=== PATIENT | female | born 1965 | race Caucasian/White ===

== ENCOUNTER → 2018-05-23 17:30 | Outpatient (CLI) | payer OTHER, SELFPAY ==
--- NOTE | 2018-05-23 | BI_ITS ---
MAMMOGRAPHY - BILATERAL SCREENING REASON FOR EXAM: Female, 53 years old. Routine annual screening examination. PERTINENT HISTORY: Non-contributory. TECHNIQUE: Digital bilateral breast renita (3D mammographic acquisition) in the CC and MLO projections. 2-D mediolateral oblique (MLO) and craniocaudad (CC) views of both breasts were obtained. CAD: Full Field Digital Mammography with Computer Added Detection was performed. COMPARISON: Comparison is made with prior study dated April 26, 2017 and April 22, 2016. FINDINGS: Breast Composition: The breasts are heterogeneously dense, which may obscure small masses. There are no dominant masses or suspicious calcifications. No other significant abnormalities are identified. There has been no significant change since the prior study. BI/SCREENING MAMM (CAD), BILAT IMPRESSION: Stable bilateral screening mammogram. Yearly follow-up mammogram recommended. (A) ASSESSMENT CATEGORY: BIRADS Category 1: Negative. A letter regarding these results will be sent to the patient by the facility within 30 days. Approximately 10% of breast cancers are not detected by mammography. A normal mammogram should not delay biopsy of a clinically suspicious abnormality. [id number] Electronically Signed: Brant Thomas MD at 8:19 EST Tel [phone], Service support ,
--- OUTSIDE RECORDS SUMMARY | 2018-07-19 11:51 | XMS RPT_ITS ---
:1965 Author Organization OHIP Support Name Relationship Address Phone IVANNA PADILLA Unavailable [address] + [place] [address] ALMITA MATA Unavailable [address] + [place] [address] [employer] Unavailable [address] + [place] [address] IVANNA PADILLA Unavailable [address] + [place] [address] ALMITA MATA Unavailable [address] + [place] [address] [employer] Unavailable [address] + [place] [address] IVANNA PADILLA Unavailable [address] + [place] [address] ALMITA MATA Unavailable [address] + [place] [address] [employer] Unavailable [address] + [place] [address] IVANNA PADILLA Unavailable [address] + [facility] [place] [place] [address] ALMITA MATA Unavailable [address] + [place] [address] [employer] Unavailable [address] + [place] [address] IVANNA PADILLA Unavailable [address] + [place] [address] ALMITA MATA Unavailable [address] + [place] [address] [employer] Unavailable [address] + [place] [address] Care Team Providers Name Role Phone Sha Cortez Attending Unavailable Michael, Monisha Primary Care Unavailable Dana, Sha Referring Unavailable Dana, Sha Attending Unavailable [place], Sha Referring Unavailable [place], Monisha Primary Care Unavailable Dana, Sha Consulting Unavailable [place], Sha Attending Unavailable Michael, Monisha Referring Unavailable [place], Monisha Primary Care Unavailable Angela Chi ELECTRONIC FUNDS TRANSFER COORDINATOR-C Attending Unavailable [place], Monisha Referring Unavailable Michael, Monisha Primary Care Unavailable Clementina Hollis Attending Unavailable Michael, Monisha Primary Care Unavailable PROBLEMS PROBLEMS DATE TYPE CONDITION / CODE ATTENDING STATUS SOURCE 10/04/2017 Unknown E10.9 - Type 1 Angela Chi Active [facility] diabetes mellitus ELECTRONIC FUNDS TRANSFER COORDINATOR-C Community without Hospital complications / Repository E10.9(ICD-10) 08/05/2017 Unknown 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 / Hospital D12.4(ICD-10) Repository 08/10/2017 Unknown Z86.010 - Personal Sha Cortez Active [facility] history of colonic Community polyps / Hospital Z86.010(ICD-10) Repository PROCEDURES PROCEDURES No Procedure Records FoundRESULTS RESULTS SCREENING MAMM (CAD), Observed: 05/23/2018 Status: F Source: [facility] 5:25 PM [facility] REPOSITORY [place] [facility] [address] [place] [address] SCREENING MAMM (CAD), BILAT MR#: [id number] Acct: [id number] Name: MAYI MATA Rep #: [id number] : 1965 F 53 From: Brant Thomas MD PCP: Monisha Rodriguez MD Status: REG CLI Study: SCREENING MAMM (CAD), BILAT Date of Exam: 05/23/18 Exam# [id number] Ordering Dr: Clementina Hollis MD MAMMOGRAPHY - BILATERAL SCREENING REASON FOR EXAM: Female, 53 years old. Routine annual screening examination. PERTINENT HISTORY: Non-contributory. TECHNIQUE: Digital bilateral breast renita (3D mammographic acquisition) in the CC and MLO projections. 2-D mediolateral oblique (MLO) and craniocaudad (CC) views of both breasts were obtained. CAD: Full Field Digital Mammography with Computer Added Detection was performed. COMPARISON: Comparison is made with prior study dated April 26, 2017 and April 22, 2016. FINDINGS: Breast Composition: The breasts are heterogeneously dense, which may obscure small masses. There are no dominant masses or suspicious calcifications. No other significant abnormalities are identified. There has been no significant change since the prior study. BI/SCREENING MAMM (CAD), BILAT IMPRESSION: Stable bilateral screening mammogram. Yearly follow-up mammogram recommended. (A) ASSESSMENT CATEGORY: BIRADS Category 1: Negative. A letter regarding these results will be sent to the patient by the facility within 30 days. Approximately 10% of breast cancers are not detected by mammography. A normal mammogram should not delay biopsy of a clinically suspicious abnormality. [id number] Electronically Signed: Brant Thomas MD at 8:19 EST Tel [phone], Service support , CC: Clementina Hollis MD; Monisha Rodriguez MD Electronics Repair Technician: Signed PROGRESS Observed: 04/15/2018 Status: COMPLETED Source: [place] 12:06 PM [facility] REPOSITORY HNO ID: [id number] Author: Ana Ackerman (Pa) Service: (none) Author Type: Physician Warehouse Clerk Type: Progress Notes Filed: 04/15/2018 12:23 PM Note Text: Subjective HPI HPI Mayi Mata is a 53 year old female who presents today for CC of sinus symptoms that started ~2.5 weeks ago. Notes that she has had a lot of sinus pressure and nasal congestion. She states that she has brought some green sputum up the past few days. Has taken OTC cold and allergy medication with no relief in symptoms. Has mild exercise-induced asthma, for which she uses advair once/day. BP 126/88 Pulse 113 Temp 36.6 ?C (97.9 ?F) (Left Tympanic) Resp 20 Wt 72 kg (158 lb 12.8 oz) LMP 01/13/2007 SpO2 98% BMI 27.26 kg/m? 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 Negative for chills and fever. HENT: Positive for congestion and sinus pain. Negative for ear pain and sore throat. Respiratory: Positive for cough (Moreso in the AM) and sputum production (Whitish sputum). Negative for shortness of breath and wheezing. Cardiovascular: Negative for chest pain. Neurological: Negative for headaches. Objective Physical Exam Constitutional: She is oriented to person, place, and time and well-developed, well-nourished, and in no distress. Vital signs are normal. HENT: Head: Normocephalic. Right Ear: Tympanic membrane, external ear and ear canal normal. No drainage. Tympanic membrane is not perforated, not erythematous, not retracted and not bulging. No middle ear effusion. Left Ear: Ear canal normal. No drainage. Tympanic membrane is not perforated, not erythematous, not retracted and not bulging. No middle ear effusion. Nose: Mucosal edema and rhinorrhea (Purulent rhinorrhea noted, crusted blood/scabbing noted in L nare) present. Right sinus exhibits maxillary sinus tenderness. Right sinus exhibits no frontal sinus tenderness. Left sinus exhibits maxillary sinus tenderness. Left sinus exhibits no frontal sinus tenderness. Mouth/Throat: Uvula is midline and mucous membranes are normal. No oropharyngeal exudate, posterior oropharyngeal edema, posterior oropharyngeal erythema or tonsillar abscesses. Eyes: Conjunctivae and lids are normal. Cardiovascular: Normal rate, regular rhythm, S1 normal and S2 normal. Exam reveals no friction rub. Pulmonary/Chest: Effort normal and breath sounds normal. She has no wheezes. She has no rhonchi. She has no rales. Lymphadenopathy: Head (right side): No submental, no submandibular, no tonsillar, no preauricular, no posterior auricular and no occipital adenopathy present. Head (left side): No submental, no submandibular, no tonsillar, no preauricular, no posterior auricular and no occipital adenopathy present. Right cervical: No superficial cervical and no posterior cervical adenopathy present. Left cervical: No superficial cervical and no posterior cervical adenopathy present. Neurological: She is oriented to person, place, and time. ASSESSMENT/PLAN: 1. Acute sinusitis, recurrence not specified, unspecified location - ICD9: 461.9, ICD10: J01.90 - Will begin treatment with Augmentin 875 mg PO BID for 10 days Reviewed red flags with patient and when to seek care sooner. The patient indicates understanding of these issues and agrees with the plan. Ana Ackerman PA-C CNOV Observed: 04/15/2018 Status: COMPLETED Source: [place] 11:45 AM [facility] REPOSITORY Office Visit ([facility]) MAYI MATA ([id number]) 1965 F Date Time Provider Department 04/15/18 11:45 AM ANA ACKERMAN) [facility] During your visit today, we recorded the following information about you: Temperature Pulse Respiration Blood pressure 97.9 degrees 113/minute 20/minute 126/88 Weight 72 kg Ana Ackerman PA-C 04/15/2018 12:23 PM Signed Subjective HPI HPI Mayipradeep Mata is a 53 year old female who presents today for CC of sinus symptoms that started ~2.5 weeks ago. Notes that she has had a lot of sinus pressure and nasal congestion. She states that she has brought some green sputum up the past few days. Has taken OTC cold and allergy medication with no relief in symptoms. Has mild exercise-induced asthma, for which she uses advair once/day. BP 126/88 Pulse 113 Temp 36.6 ?C (97.9 ?F) (Left Tympanic) Resp 20 Wt 72 kg (158 lb 12.8 oz) LMP 01/13/2007 SpO2 98% BMI 27.26 kg/m? 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 Negative for chills and fever. HENT: Positive for congestion and sinus pain. Negative for ear pain and sore throat. Respiratory: Positive for cough (Moreso in the AM) and sputum production (Whitish sputum). Negative for shortness of breath and wheezing. Cardiovascular: Negative for chest pain. Neurological: Negative for headaches. Objective Physical Exam Constitutional: She is oriented to person, place, and time and well-developed, well-nourished, and in no distress. Vital signs are normal. HENT: Head: Normocephalic. Right Ear: Tympanic membrane, external ear and ear canal normal. No drainage. Tympanic membrane is not perforated, not erythematous, not retracted and not bulging. No middle ear effusion. Left Ear: Ear canal normal. No drainage. Tympanic membrane is not perforated, not erythematous, not retracted and not bulging. No middle ear effusion. Nose: Mucosal edema and rhinorrhea (Purulent rhinorrhea noted, crusted blood/scabbing noted in L nare) present. Right sinus exhibits maxillary sinus tenderness. Right sinus exhibits no frontal sinus tenderness. Left sinus exhibits maxillary sinus tenderness. Left sinus exhibits no frontal sinus tenderness. Mouth/Throat: Uvula is midline and mucous membranes are normal. No oropharyngeal exudate, posterior oropharyngeal edema, posterior oropharyngeal erythema or tonsillar abscesses. Eyes: Conjunctivae and lids are normal. Cardiovascular: Normal rate, regular rhythm, S1 normal and S2 normal. Exam reveals no friction rub. Pulmonary/Chest: Effort normal and breath sounds normal. She has no wheezes. She has no rhonchi. She has no rales. Lymphadenopathy: Head (right side): No submental, no submandibular, no tonsillar, no preauricular, no posterior auricular and no occipital adenopathy present. Head (left side): No submental, no submandibular, no tonsillar, no preauricular, no posterior auricular and no occipital adenopathy present. Right cervical: No superficial cervical and no posterior cervical adenopathy present. Left cervical: No superficial cervical and no posterior cervical adenopathy present. Neurological: She is oriented to person, place, and time. ASSESSMENT/PLAN: 1. Acute sinusitis, recurrence not specified, unspecified location - ICD9: 461.9, ICD10: J01.90 - Will begin treatment with Augmentin 875 mg PO BID for 10 days Reviewed red flags with patient and when to seek care sooner. The patient indicates understanding of these issues and agrees with the plan. LATIA Alas PA-C 04/15/2018 12:17 PM Signed Albert Lea nasal saline gel- apply to affected side once/day Referring Provider: SELF [[id number]] Allergies As of Date: 04/15/2018 Noted Allergy Reaction CITALOPRAM 12/05/2007 6 - Diarrhea SERTRALINE 12/22/2007 6 - Diarrhea Date Reviewed: 04/15/2018 Reviewed by: Martha Miranda Ma - Fully Assessed Reason for Visit: Sinusitis [127] Cmt: x 2 weeks Primary Visit Diagnosis:Acute sinusitis, recurrence not specified, unspecified location [J01.90] Order(s):amoxicillin-clavulanic acid (AUGMENTIN) 875-125 mg per tabletTake 1 tablet by mouth twice daily for 10 days.Disp: 20 tabletRfl: 0 Prescriptions as of 04/15/2018 Sig: CYANOCOBALAMIN (VIT B-12) 1,0* FOR DIRECTIONS ON HOW TO TA* LANSOPRAZOLE 30 MG CAPSULE,DE* TAKE NECESSARY ALBUTEROL SULFATE HFA 90 MCG/* Inhale 2 Puffs as instructed * CYANOCOBALAMIN (VIT B-12) 1,0* Take 1 tablet by mouth once d* COMPOUNDED PRESCRIPTION 3cc syringe and 25g 1 needle* METRONIDAZOLE 0.75 % TOPICAL * APPLY 1 APPLICATION TO AF* CHOLECALCIFEROL (VITAMIN D3) * Take 1,000 Units by mouth onc* FLUTICASONE 500 MCG-SALMETERO* Inhale 1 Puff as instructed t* LOVASTATIN 40 MG TABLET Take 1 tablet by mouth twice * HYDROCHLOROTHIAZIDE 25 MG TAB* Take 1 tablet by mouth once d* INSULIN ASPART U-100 100 UNI* use as directed in insulin pu* BLOOD SUGAR DIAGNOSTIC STRIPS CHECK BLOOD SUGARS 8 TIMES DA* LISINOPRIL 40 MG TABLET Take 1 tablet by mouth once d* COMPOUNDED PRESCRIPTION Metronic Minimed Insulin Pump* LANCETS testing 8 times daily BD ULTRA FINE LANCETS use as directed ASPIRIN 81 MG TABLET Take one(1) tablet daily. VITAMIN C 500 MG TABLET Take one(1) tablet daily. AMOXICILLIN 875 MG-POTASSIUM * Take 1 tablet by mouth twice * Problem List As Of Date 04/15/2018 Noted Resolved Type 1 diabetes mellitus (HCC) [E10.9] Hypothyroidism [E03.9] INVALID FOR* PURE HYPERCHOLESTEROLEM [E78.00] INVALID FOR* Mild intermittent asthma, uncomplicated [J45.20]INVALID FOR* B12 DEFIC ANEMIA NEC [D51.8] INVALID FOR* ACNE VULGARIS: Inflammatory Grade III//IV: low*INVALID FOR* HEADACHE [R51] INVALID FOR* More... NEVUS CHEST/BACK///BENIGN TAMMY SKIN TRUNK [D23.5]INVALID FOR*02/16/2017 NEVUS///BENIGN TAMMY SKIN FACE NEC [D23.30] INVALID FOR*02/16/2017 NEVI////BENIGN TAMMY SCALP/SKIN NECK [D23.4] INVALID FOR*02/16/2017 SCARS: Acne-related (chin) [L90.5] INVALID FOR*02/16/2017 SOLAR LENTIGINES///DYSCHROMIA OTHER [L81.9] INVALID FOR*02/16/2017 ACTINIC DAMAGE///CHR SOLAR SKIN DAMAGE NOS [L57*INVALID FOR*02/16/2017 Dermatitis due to cosmetics [L25.0] INVALID FOR*02/16/2017 Contact dermatitis and other eczema, due to uns*INVALID FOR*02/16/2017 Contact dermatitis and other eczema due to othe*INVALID FOR*02/16/2017 Solar Lentigines [L81.4] INVALID FOR*02/16/2017 Postinflammatory skin changes [R23.4] INVALID FOR*02/16/2017 Epidermal cyst [L72.0] INVALID FOR*02/16/2017 Other instructions from your clinician: Albert Lea nasal saline gel- apply to affected side once/day Prescriptions ordered this encounter Disp Refills Start End AMOXICILLIN 875 MG-POTASSIUM CLAVULA* 20 t* 0 04/15/2018 04/25/2018 Route: ORAL Sig: Take 1 tablet by mouth twice daily for 10 days. Encounter Status:Closed by ANA ACKERMAN on 04/15/18 PROGRESS Observed: 11/15/2017 Status: COMPLETED Source: [place] 7:53 PM [facility] REPOSITORY HNO ID: [id number] Author: Azael Ye) Margot Service: (none) Author Type: Physician Warehouse Clerk Type: Progress Notes Filed: 11/15/2017 8:24 PM Note Text: Subjective HPI Pt presents with left eye redness and drainage since this morning. She does get seasonal allergies with eye symptoms this time of year but it is only affecting one eye. She does wear glasses. She does not recall getting anything in her eyes. No cold symptoms. Review of Systems Eyes: Positive for pain, discharge and redness. All other systems reviewed and are negative. 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 Disp: 1 Inhaler Rfl: 3 cyanocobalamin (VITAMIN B-12) 1,000 mcg tab Take 1 tablet by mouth once daily. Disp: 30 tablet Rfl: 5 COMPOUNDED PRESCRIPTION 3cc syringe and 25g 1 needle for B12 injections. Disp: 50 Each Rfl: 3 metroNIDAZOLE (METROGEL) 0.75 % Topical Gel APPLY 1 APPLICATION TO AFFECTED AREA TWO TIMES A DAY Disp: 45 g Rfl: 3 lansoprazole (PREVACID) 30 mg capsule as necessary Disp: 90 capsule Rfl: 3 Cholecalciferol, Vitamin D3, (VITAMIN D) 1,000 unit cap Take 1,000 Units by mouth once daily. Disp: Rfl: fluticasone-salmeterol (ADVAIR DISKUS) 500-50 mcg/dose dsdv Inhale 1 Puff as instructed twice daily. Rinse mouth after use. Disp: 3 Inhaler Rfl: 3 Lovastatin 40 mg tablet Take 1 tablet by mouth twice daily. Disp: 180 tablet Rfl: 4 hydrochlorothiazide (HYDRODIURIL, ESIDRIX) 25 mg tablet Take 1 tablet by mouth once daily. Disp: 90 tablet Rfl: 4 insulin aspart (NOVOLOG) 100 unit/mL soln use as directed in insulin pump up to 50 units daily Disp: 5 Vial Rfl: 3 blood sugar diagnostic (ONETOUCH ULTRA TEST) test strip CHECK BLOOD SUGARS 8 TIMES DAILY Disp: 750 Strip Rfl: 4 lisinopril (ZESTRIL, PRINIVIL) 40 mg tablet Take 1 tablet by mouth once daily. Disp: 90 tablet Rfl: 4 COMPOUNDED PRESCRIPTION Metronic Minimed Insulin Pump Supples And life scan testing supplies use as directed Disp: 30 Each Rfl: 3 Lancets Misc lancets testing 8 times daily Disp: 750 Each Rfl: 4 BD ULTRA FINE LANCETS use as directed Disp: 300 Rfl: 3 ASPIRIN 81 MG ORAL TAB Take one(1) tablet daily. Disp: Rfl: 0 VITAMIN C 500 MG ORAL TAB Take one(1) tablet daily. Disp: Rfl: 0 tobramycin (TOBREX) 0.3 % ophthalmic solution Use 1 Drop in the left eye every 4 hours for 7 days. Disp: 1 Bottle Rfl: 0 cyanocobalamin 1,000 mcg/mL soln Inject 1 mL intramuscularly once every month. Give once weekly for the first month Disp: 16 mL Rfl: 0 No current facility-administered medications for this visit. PAST SURGICAL HISTORY Procedure Laterality Date - APPENDECTOMY - COLONOSCOPY 07/12/2016 Repeat colonoscopy 2018 - PAST SURGICAL HISTORY OF LAPAROSCOPY - REMOVAL OF OVARY(S) 04/02 right oophorectomy - TOTAL ABDOM HYSTERECTOMY 04/02 Hysterectomy, IVY FAMILY HISTORY Problem Relation Age of Onset - RENAL CANCER [OTHER] Father - Colon Cancer Maternal Grandmother and maternal grandfather Social History Substance Use Topics - Smoking status: Current Some Day Smoker Packs/day: 0.50 Last attempt to quit: 06/28/2010 - Smokeless tobacco: Never Used Comment: seldom - Alcohol use No BP 122/80 Pulse 84 Temp 37.2 ?C (99 ?F) Resp 18 Wt 71.7 kg (158 lb) LMP 01/13/2007 BMI 27.12 kg/m? Objective Physical Exam Constitutional: She is oriented to person, place, and time and well-developed, well-nourished, and in no distress. HENT: Head: Normocephalic and atraumatic. Right Ear: Tympanic membrane, external ear and ear canal normal. Left Ear: Tympanic membrane, external ear and ear canal normal. Nose: Nose normal. Mouth/Throat: Uvula is midline, oropharynx is clear and moist and mucous membranes are normal. Eyes: EOM are normal. Pupils are equal, round, and reactive to light. Right eye exhibits no discharge. No foreign body present in the right eye. Left eye exhibits discharge. No foreign body present in the left eye. Right conjunctiva is not injected. Left conjunctiva is injected. Thick green discharge from left conjunctiva. No signs of orbital or periorbital cellulitis. Cardiovascular: Normal rate, regular rhythm and normal heart sounds. Pulmonary/Chest: Effort normal and breath sounds normal. Neurological: She is alert and oriented to person, place, and time. Skin: Skin is warm and dry. Psychiatric: Affect normal. Nursing note and vitals reviewed. ASSESSMENT/PLAN: 1. Bacterial conjunctivitis - ICD9: 372.39, 041.9, ICD10: H10.9 Bacterial - Given tobrex - course and contagiousness issues discussed, including hand washing. - Instructed to call if high fever, development of periorbital redness or swelling, eye pain, visual changes, concerns or if symptoms persist. LATIA Guaman Observed: 11/15/2017 Status: COMPLETED Source: [place] 7:30 PM [facility] Office Visit ([facility]) MAYI MATA ([id number]) 1965 F Date Time Provider Department 11/15/17 7:30 PM AZAEL MATHIS) [facility] During your visit today, we recorded the following information about you: Temperature Pulse Respiration Blood pressure 99 degrees 84/minute 18/minute 122/80 Weight 71.7 kg Azael Mathis PA-C 11/15/2017 8:24 PM Signed Subjective HPI Pt presents with left eye redness and drainage since this morning. She does get seasonal allergies with eye symptoms this time of year but it is only affecting one eye. She does wear glasses. She does not recall getting anything in her eyes. No cold symptoms. Review of Systems Eyes: Positive for pain, discharge and redness. All other systems reviewed and are negative. 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 Disp: 1 Inhaler Rfl: 3 cyanocobalamin (VITAMIN B-12) 1,000 mcg tab Take 1 tablet by mouth once daily. Disp: 30 tablet Rfl: 5 COMPOUNDED PRESCRIPTION 3cc syringe and 25g 1 needle for B12 injections. Disp: 50 Each Rfl: 3 metroNIDAZOLE (METROGEL) 0.75 % Topical Gel APPLY 1 APPLICATION TO AFFECTED AREA TWO TIMES A DAY Disp: 45 g Rfl: 3 lansoprazole (PREVACID) 30 mg capsule as necessary Disp: 90 capsule Rfl: 3 Cholecalciferol, Vitamin D3, (VITAMIN D) 1,000 unit cap Take 1,000 Units by mouth once daily. Disp: Rfl: fluticasone-salmeterol (ADVAIR DISKUS) 500-50 mcg/dose dsdv Inhale 1 Puff as instructed twice daily. Rinse mouth after use. Disp: 3 Inhaler Rfl: 3 Lovastatin 40 mg tablet Take 1 tablet by mouth twice daily. Disp: 180 tablet Rfl: 4 hydrochlorothiazide (HYDRODIURIL, ESIDRIX) 25 mg tablet Take 1 tablet by mouth once daily. Disp: 90 tablet Rfl: 4 insulin aspart (NOVOLOG) 100 unit/mL soln use as directed in insulin pump up to 50 units daily Disp: 5 Vial Rfl: 3 blood sugar diagnostic (I.SystemsUCH ULTRA TEST) test strip CHECK BLOOD SUGARS 8 TIMES DAILY Disp: 750 Strip Rfl: 4 lisinopril (ZESTRIL, PRINIVIL) 40 mg tablet Take 1 tablet by mouth once daily. Disp: 90 tablet Rfl: 4 COMPOUNDED PRESCRIPTION Metronic Minimed Insulin Pump Supples And life scan testing supplies use as directed Disp: 30 Each Rfl: 3 Lancets Misc lancets testing 8 times daily Disp: 750 Each Rfl: 4 BD ULTRA FINE LANCETS use as directed Disp: 300 Rfl: 3 ASPIRIN 81 MG ORAL TAB Take one(1) tablet daily. Disp: Rfl: 0 VITAMIN C 500 MG ORAL TAB Take one(1) tablet daily. Disp: Rfl: 0 tobramycin (TOBREX) 0.3 % ophthalmic solution Use 1 Drop in the left eye every 4 hours for 7 days. Disp: 1 Bottle Rfl: 0 cyanocobalamin 1,000 mcg/mL soln Inject 1 mL intramuscularly once every month. Give once weekly for the first month Disp: 16 mL Rfl: 0 No current facility-administered medications for this visit. PAST SURGICAL HISTORY Procedure Laterality Date - APPENDECTOMY - COLONOSCOPY 07/12/2016 Repeat colonoscopy 2018 - PAST SURGICAL HISTORY OF LAPAROSCOPY - REMOVAL OF OVARY(S) 04/02 right oophorectomy - TOTAL ABDOM HYSTERECTOMY 04/02 Hysterectomy, IVY FAMILY HISTORY Problem Relation Age of Onset - RENAL CANCER [OTHER] Father - Colon Cancer Maternal Grandmother and maternal grandfather Social History Substance Use Topics - Smoking status: Current Some Day Smoker Packs/day: 0.50 Last attempt to quit: 06/28/2010 - Smokeless tobacco: Never Used Comment: seldom - Alcohol use No BP 122/80 Pulse 84 Temp 37.2 ?C (99 ?F) Resp 18 Wt 71.7 kg (158 lb) LMP 01/13/2007 BMI 27.12 kg/m? Objective Physical Exam Constitutional: She is oriented to person, place, and time and well-developed, well-nourished, and in no distress. HENT: Head: Normocephalic and atraumatic. Right Ear: Tympanic membrane, external ear and ear canal normal. Left Ear: Tympanic membrane, external ear and ear canal normal. Nose: Nose normal. Mouth/Throat: Uvula is midline, oropharynx is clear and moist and mucous membranes are normal. Eyes: EOM are normal. Pupils are equal, round, and reactive to light. Right eye exhibits no discharge. No foreign body present in the right eye. Left eye exhibits discharge. No foreign body present in the left eye. Right conjunctiva is not injected. Left conjunctiva is injected. Thick green discharge from left conjunctiva. No signs of orbital or periorbital cellulitis. Cardiovascular: Normal rate, regular rhythm and normal heart sounds. Pulmonary/Chest: Effort normal and breath sounds normal. Neurological: She is alert and oriented to person, place, and time. Skin: Skin is warm and dry. Psychiatric: Affect normal. Nursing note and vitals reviewed. ASSESSMENT/PLAN: 1. Bacterial conjunctivitis - ICD9: 372.39, 041.9, ICD10: H10.9 Bacterial - Given tobrex - course and contagiousness issues discussed, including hand washing. - Instructed to call if high fever, development of periorbital redness or swelling, eye pain, visual changes, concerns or if symptoms persist. Azael Mathis PA-C Referring Provider: SELF [[id number]] Allergies As of Date: 11/15/2017 Noted Allergy Reaction CITALOPRAM 12/05/2007 6 - Diarrhea SERTRALINE 12/22/2007 6 - Diarrhea Date Reviewed: 11/15/2017 Reviewed by: Joy Juarez LPN - Fully Assessed Reason for Visit: Eye Problem [43] Cmt: Left eye puffy, draining AND red since this am Primary Visit Diagnosis:Bacterial conjunctivitis [H10.9] Order(s):tobramycin (TOBREX) 0.3 % ophthalmic solutionUse 1 Drop in the left eye every 4 hours for 7 days.Disp: 1 BottleRfl: 0 Prescriptions as of 11/15/2017 Sig: ALBUTEROL SULFATE HFA 90 MCG/* Inhale 2 Puffs as instructed * CYANOCOBALAMIN (VIT B-12) 1,0* Take 1 tablet by mouth once d* COMPOUNDED PRESCRIPTION 3cc syringe and 25g 1 needle* METRONIDAZOLE 0.75 % TOPICAL * APPLY 1 APPLICATION TO AF* LANSOPRAZOLE 30 MG CAPSULE,DE* as necessary CHOLECALCIFEROL (VITAMIN D3) * Take 1,000 Units by mouth onc* FLUTICASONE 500 MCG-SALMETERO* Inhale 1 Puff as instructed t* LOVASTATIN 40 MG TABLET Take 1 tablet by mouth twice * HYDROCHLOROTHIAZIDE 25 MG TAB* Take 1 tablet by mouth once d* INSULIN ASPART U-100 100 UNI* use as directed in insulin pu* BLOOD SUGAR DIAGNOSTIC STRIPS CHECK BLOOD SUGARS 8 TIMES DA* LISINOPRIL 40 MG TABLET Take 1 tablet by mouth once d* COMPOUNDED PRESCRIPTION Metronic Minimed Insulin Pump* LANCETS testing 8 times daily BD ULTRA FINE LANCETS use as directed ASPIRIN 81 MG TABLET Take one(1) tablet daily. VITAMIN C 500 MG TABLET Take one(1) tablet daily. TOBRAMYCIN 0.3 % EYE DROPS Use 1 Drop in the left eye ev* CYANOCOBALAMIN (VIT B-12) 1,0* Inject 1 mL intramuscularly o* Problem List As Of Date 11/15/2017 Noted Resolved Type 1 diabetes mellitus (HCC) [E10.9] Hypothyroidism [E03.9] INVALID FOR* PURE HYPERCHOLESTEROLEM [E78.00] INVALID FOR* Mild intermittent asthma, uncomplicated [J45.20]INVALID FOR* B12 DEFIC ANEMIA NEC [D51.8] INVALID FOR* ACNE VULGARIS: Inflammatory Grade III//IV: low*INVALID FOR* HEADACHE [R51] INVALID FOR* More... NEVUS CHEST/BACK///BENIGN TAMMY SKIN TRUNK [D23.5]INVALID FOR*02/16/2017 NEVUS///BENIGN TAMMY SKIN FACE NEC [D23.30] INVALID FOR*02/16/2017 NEVI////BENIGN TAMMY SCALP/SKIN NECK [D23.4] INVALID FOR*02/16/2017 SCARS: Acne-related (chin) [L90.5] INVALID FOR*02/16/2017 SOLAR LENTIGINES///DYSCHROMIA OTHER [L81.9] INVALID FOR*02/16/2017 ACTINIC DAMAGE///CHR SOLAR SKIN DAMAGE NOS [L57*INVALID FOR*02/16/2017 Dermatitis due to cosmetics [L25.0] INVALID FOR*02/16/2017 Contact dermatitis and other eczema, due to uns*INVALID FOR*02/16/2017 Contact dermatitis and other eczema due to othe*INVALID FOR*02/16/2017 Solar Lentigines [L81.4] INVALID FOR*02/16/2017 Postinflammatory skin changes [R23.4] INVALID FOR*02/16/2017 Epidermal cyst [L72.0] INVALID FOR*02/16/2017 Prescriptions ordered this encounter Disp Refills Start End TOBRAMYCIN 0.3 % EYE DROPS 1 Moi* 0 11/15/2017 11/22/2017 Route: LEFT EYE Sig: Use 1 Drop in the left eye every 4 hours for 7 days. Letter Text [facility] LILLIE Levi [address], [place] [address] 11/15/2017 TO WHOM IT MAY CONCERN: This is to confirm that Mayi Mata had an appointment and was seen at the [facility] in the Department of Urgent Care by LILLIE Levi on 11/15/2017 and may return to work on 11/17/2017. Sincerely yours, LILLIE Levi Encounter Status:Closed by AZAEL MATHIS PA-C on 11/15/17 ENDOCRINOLOGY VISIT Observed: 10/05/2017 Status: F Source: [facility] REPORT 12:26 PM [facility] REPOSITORY [facility] [address] [place] [address] [address] [place] [id number] OFFICE VISIT Date of Service: 10/03/17 MR#: [id number] Acct: [id number] Name: MAYI MATA Rep #: [id number] : 1965 Provider: Angela Chi NP Age/Sex: 52/F Location[place] [facility] [place]: Signed HPI History of present illness Mayi Mata is a 52 year old female who presents for follow up of diabetes type 1. Diagnosed in 1998. Continues on insulin pump therapy. Changes infusion site every 3 days. Denies any issues with skin irritation or infection. Reports checking BG consistently. Forgot to bring her glucometer. Time of Day Basal Rate 12m 0.4 4am 0.875 7am 0.45 2pm 0.35 6pm 0.45 Meal insulin 4-8 Type: type 1, insulin-requiring Glucose control symptoms: Reports high post-meal glucose Skin and extremity symptoms: Denies tingling/numbness/burning or foot ulcers Pertinent visit history: Denies recent visit to ER or recent DKA Self monitoring: Yes Diabetes education in past year: Yes Glucose testing: demonstrates correct use of meter, understands testing schedule Physical activity: regular Exam Const General: comfortable Nutritional Appearance: well nourished Orientation: oriented x3 HENMT Head: normal to inspection Ears: hearing grossly normal bilaterally Mouth: oral mucosae normal, moist mucous membranes Teeth and gingiva: dentition normal Eyes Eyelids: eyelids normal Conjunctivae: conjunctivae normal Pupils: PERRL Resp Effort AND Inspection: normal respiratory effort, able to speak in complete sentences, symmetric chest movement Auscultation: Bilateral: Clear to Auscultation Cardio Rate: regular rate Rhythm: regular rhythm Heart Sounds: S1 normal, S2 normal GI Inspection: normal to inspection Auscultation: normal bowel sounds Palpation: soft Skin General: no rashes or lesions noted Wounds: no wounds Diabetic Foot Pulses: L dorsalis pedis pulse: normal, R dorsalis pedis pulse: normal Monofilament test: Left foot: abnormal, Right foot: abnormal Neuro General: moves all extremities Cognition: normal cognition Speech: speech normal Gait: normal gait Extrem General: normal to inspection Psych Mental Status: mental status grossly normal Mood: congruent mood Affect: normal affect Speech and Movement: speech and movement normal Attitude: cooperative Thought Process: normal Thought Content: normal Judgment: judgment good Intake Vital Signs10/03/17 Height 5 ft 4 in 10/03/17 Weight: 154 lb 6 oz Intake Visit Reasons: Diabetes follow-up 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 Accompanied by: None Is patient in pain?: No Allergies No Known Allergies Allergy (Verified 08/05/17 08:08) Medications ascorbic acid (vitamin C) ER 1,000 mg tablet,extended release 1,000 mg PO DAILY 06/06/17 [History Confirmed 08/05/17] aspirin 81 mg tablet,delayed release 81 mg PO QDAY 06/06/17 [History Confirmed 08/05/17] fluticasone 500 mcg-salmeterol 50 mcg/dose blistr powdr for inhalation 1 inh INHALATION Q12H 06/06/17 [History Confirmed 08/05/17] lansoprazole 30 mg capsule,delayed release 30 mg PO BID 06/06/17 [History Confirmed 08/05/17] levothyroxine 112 mcg tablet 112 mcg PO DAILY tab 06/06/17 [History Confirmed 08/05/17] lisinopril 40 mg tablet 40 mg PO QDAY 06/06/17 [History Confirmed 08/05/17] Cyanocobalamin (Vitamin B-12) [Vitamin B-12] 1,000 mcg PO DAILY 07/15/17 [History Confirmed 08/05/17] insulin aspart U-100 100 unit/mL subcutaneous solution See Label Instructions SC QDAY #50 ml 08/03/17 [Rx Confirmed 08/05/17] hydrochlorothiazide 25 mg tablet 25 mg PO QDAY #90 tab 08/17/17 [Rx] lovastatin 40 mg tablet 40 mg PO QDAY #90 tab 08/25/17 [Rx] PFSH Medical History Hypothyroid (Acute) Asthma (Acute) Type 1 diabetes mellitus (Acute) Snoring (Acute) Vitamin B 12 deficiency (Acute) Surgical History S/P hysterectomy (Acute) S/P oophorectomy (Acute) S/P colonoscopy (Acute) S/P appendectomy (Acute) Family History Father Renal cancer Social History Smoking Status: Light Smoker (<10/day) second hand exposure: No alcohol intake: never substance use type: does not use caffeine: Yes what type of physical activity do you participate in: walking frequency: 1-2 times per week seatbelt use: always Assessment AND Plan 1. Type 1 diabetes mellitus without complication E10.9 Did not bring meter but feels she is doing fairly well. Some high BG after meals. Enc to check Bg in pairs to determine if a basal or bolus issue. Would possibly benefit from using her dual wave. BP sl elevated. Recheck in 2 weeks On jered inhibitor On statin Eye exam up to date. Orders Orders: Plan Detail Additional Comments 1. Please schedule follow up in 3 months. 2. Lab work one week before appointment. 3. Discussed importance of regular exercise and recommend starting or continuing a regular exercise program for good health. 4. The patient was encouraged to lose weight for good health 5. The importance of monitoring blood sugar regularly was reviewed. 6. The importance of monitoring the HBA1c level regularly was reviewed. 7. The importance of prper foot care and regularly checking feet to prevent sores and loss of limbs was reviewed. 8. The importance of keeping BP at or below 130/80 to prevent stroke, heart attacks, kidney failure, blindness was reviewed. Spent approximately 30 minutes with patient with over 50% of time spent in discussion and counseling regarding medication adjustment, symptoms and treatment of hypoglycemia, diet adherence, and checking BG before driving. Coding Level of Care Code Off vis,est,level 4 Diagnoses Type 1 diabetes mellitus without complication E10.9 Diabetes mellitus complication status: without complication Time Spent (min) 30 10/05/17 1226 <Electronically signed by Angela BUTTERFIELD> Date Angela BUTTERFIELD Cosigner Signature: Date (if applicable) CC: Observed: 09/12/2017 Status: F Source: [place] URINE CULTURE 7:16 AM [facility] REPOSITORY Sp. Request/Comment: - Specimen received in preservative Culture Result - 10,000 - <50,000 CFU/ml Lactose positive gram negative bacilli --> ABNORMAL ALERT Insignificant colony count. No further workup. --> ABNORMAL ALERT <10,000 CFU/ml Normal urogenital cherelle Performed By: #### URCUL #### [facility] [address] [place], [place] [address] PROGRESS Observed: 09/12/2017 Status: COMPLETED Source: [place] 7:09 AM [facility] REPOSITORY HNO ID: [id number] Author: Alverto Smith Service: (none) Author Type: Physician Type: Progress Notes Filed: 09/12/2017 7:19 AM Note Text: Patient presents with: Urinary Frequency: burning, hematuria x 2 days HPI: Symptoms for 2 days, worse this morning. 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 - Other acne - Other vitamin B12 deficiency anemia - Snoring - Type I (juvenile type) diabetes mellitus without mention of complication, not stated as uncontrolled - Unspecified asthma, with status asthmaticus - Unspecified hypothyroidism PAST SURGICAL HISTORY Procedure Laterality Date - APPENDECTOMY - COLONOSCOPY 07/12/2016 Repeat colonoscopy 2017 - PAST SURGICAL HISTORY OF LAPAROSCOPY - REMOVAL OF OVARY(S) 04/02 right oophorectomy - TOTAL ABDOM HYSTERECTOMY 04/02 Hysterectomy, IVY MEDICATIONS: Current Outpatient Prescriptions: cyanocobalamin 1,000 mcg/mL soln Inject 1 mL intramuscularly once every month. Give once weekly for the first month cyanocobalamin (VITAMIN B-12) 1,000 mcg tab Take 1 tablet by mouth once daily. COMPOUNDED PRESCRIPTION 3cc syringe and 25g 1 needle for B12 injections. metroNIDAZOLE (METROGEL) 0.75 % Topical Gel APPLY 1 APPLICATION TO AFFECTED AREA TWO TIMES A DAY lansoprazole (PREVACID) 30 mg capsule as necessary Cholecalciferol, Vitamin D3, (VITAMIN D) 1,000 unit cap Take 1,000 Units by mouth once daily. fluticasone-salmeterol (ADVAIR DISKUS) 500-50 mcg/dose dsdv Inhale 1 Puff as instructed twice daily. Rinse mouth after use. Lovastatin 40 mg tablet Take 1 tablet by mouth twice daily. hydrochlorothiazide (HYDRODIURIL, ESIDRIX) 25 mg tablet Take 1 tablet by mouth once daily. insulin aspart (NOVOLOG) 100 unit/mL soln use as directed in insulin pump up to 50 units daily blood sugar diagnostic (ONETOUCH ULTRA TEST) test strip CHECK BLOOD SUGARS 8 TIMES DAILY lisinopril (ZESTRIL, PRINIVIL) 40 mg tablet Take 1 tablet by mouth once daily. COMPOUNDED PRESCRIPTION Metronic Minimed Insulin Pump Supples And life scan testing supplies use as directed Lancets Misc lancets testing 8 times daily BD ULTRA FINE LANCETS use as directed ASPIRIN 81 MG ORAL TAB Take one(1) tablet daily. VITAMIN C 500 MG ORAL TAB Take one(1) tablet daily. No current facility-administered medications for this visit. ALLERGIES: ALLERGIES Allergen Reactions - Citalopram Diarrhea - Sertraline Diarrhea VITALS: BP 128/84 Pulse 84 Temp 36.3 ?C (97.3 ?F) (Tympanic) Resp 16 Wt 70.8 kg (156 lb) LMP 01/13/2007 BMI 26.78 kg/m2 PHYSICAL EXAM: GEN: NAD HEENT: EOMI, conjunctiva clear, moist mucous membranes HEART: regular rate and rhythm, no murmurs LUNGS: clear to auscultation, no wheezes or crackles, no increased WOB ABDOMEN: Soft, nondistended, no masses, + suprapubic tenderness BACK: No CVA tenderness ASSESSMENT/PLAN: 1. Gross hematuria - ICD9: 599.71, ICD10: R31.0 - UA DIP B/O - large blood, large LE, nitrite, protein. Urinary tract infection. - URINE CULTURE - NITROFURANTOIN MONOHYDRATE AND MACROCRYSTAL 100 MG ORAL CAP Ibuprofen PRN pain. Alverto Smith MD CNOV Observed: 09/12/2017 Status: COMPLETED Source: [place] 6:45 AM [facility] REPOSITORY Office Visit (WSTR) MAYI MATA ([id number]) 1965 F Date Time Provider Department 09/12/17 6:45 AM ALVERTO SMITH [facility] During your visit today, we recorded the following information about you: Temperature Pulse Respiration Blood pressure 97.3 degrees 84/minute 16/minute 128/84 Weight 70.8 kg Alverto Smith MD 09/12/2017 7:19 AM Signed Patient presents with: Urinary Frequency: burning, hematuria x 2 days HPI: Symptoms for 2 days, worse this morning. 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 - Other acne - Other vitamin B12 deficiency anemia - Snoring - Type I (juvenile type) diabetes mellitus without mention of complication, not stated as uncontrolled - Unspecified asthma, with status asthmaticus - Unspecified hypothyroidism PAST SURGICAL HISTORY Procedure Laterality Date - APPENDECTOMY - COLONOSCOPY 07/12/2016 Repeat colonoscopy 2017 - PAST SURGICAL HISTORY OF LAPAROSCOPY - REMOVAL OF OVARY(S) 04/02 right oophorectomy - TOTAL ABDOM HYSTERECTOMY 04/02 Hysterectomy, IVY MEDICATIONS: Current Outpatient Prescriptions: cyanocobalamin 1,000 mcg/mL soln Inject 1 mL intramuscularly once every month. Give once weekly for the first month cyanocobalamin (VITAMIN B-12) 1,000 mcg tab Take 1 tablet by mouth once daily. COMPOUNDED PRESCRIPTION 3cc syringe and 25g 1ANDquot; needle for B12 injections. metroNIDAZOLE (METROGEL) 0.75 % Topical Gel APPLY 1 APPLICATION TO AFFECTED AREA TWO TIMES A DAY lansoprazole (PREVACID) 30 mg capsule as necessary Cholecalciferol, Vitamin D3, (VITAMIN D) 1,000 unit cap Take 1,000 Units by mouth once daily. fluticasone-salmeterol (ADVAIR DISKUS) 500-50 mcg/dose dsdv Inhale 1 Puff as instructed twice daily. Rinse mouth after use. Lovastatin 40 mg tablet Take 1 tablet by mouth twice daily. hydrochlorothiazide (HYDRODIURIL, ESIDRIX) 25 mg tablet Take 1 tablet by mouth once daily. insulin aspart (NOVOLOG) 100 unit/mL soln use as directed in insulin pump up to 50 units daily blood sugar diagnostic (Lodo SoftwareTOUCH ULTRA TEST) test strip CHECK BLOOD SUGARS 8 TIMES DAILY lisinopril (ZESTRIL, PRINIVIL) 40 mg tablet Take 1 tablet by mouth once daily. COMPOUNDED PRESCRIPTION Metronic Minimed Insulin Pump Supples And life scan testing supplies use as directed Lancets Misc lancets testing 8 times daily BD ULTRA FINE LANCETS use as directed ASPIRIN 81 MG ORAL TAB Take one(1) tablet daily. VITAMIN C 500 MG ORAL TAB Take one(1) tablet daily. No current facility-administered medications for this visit. ALLERGIES: ALLERGIES Allergen Reactions - Citalopram Diarrhea - Sertraline Diarrhea VITALS: BP 128/84 Pulse 84 Temp 36.3 ?C (97.3 ?F) (Tympanic) Resp 16 Wt 70.8 kg (156 lb) LMP 01/13/2007 BMI 26.78 kg/m2 PHYSICAL EXAM: GEN: NAD HEENT: EOMI, conjunctiva clear, moist mucous membranes HEART: regular rate and rhythm, no murmurs LUNGS: clear to auscultation, no wheezes or crackles, no increased WOB ABDOMEN: Soft, nondistended, no masses, + suprapubic tenderness BACK: No CVA tenderness ASSESSMENT/PLAN: 1. Gross hematuria - ICD9: 599.71, ICD10: R31.0 - UA DIP B/O - large blood, large LE, nitrite, protein. Urinary tract infection. - URINE CULTURE - NITROFURANTOIN MONOHYDRATE ANDamp; MACROCRYSTAL 100 MG ORAL CAP Ibuprofen PRN pain. Alverto Smith MD Referring Provider: SELF [200] Allergies As of Date: 09/12/2017 Noted Allergy Reaction CITALOPRAM 12/05/2007 6 - Diarrhea SERTRALINE 12/22/2007 6 - Diarrhea Date Reviewed: 09/12/2017 Reviewed by: Mindi Auguste Ma - Fully Assessed Reason for Visit: Urinary Frequency [1086] Cmt: burning, hematuria x 2 days Primary Visit Diagnosis:Gross hematuria [R31.0] Order(s):UA DIP B/O [[id number]] Order #: [id number] URINE CULTURE [SQURCUL] Order #: [id number] nitrofurantoin monohydrate and macrocrystal (MACROBID) 100 mg capsuleTake 1 capsule by mouth twice daily with meals for 7 days.Disp: 14 capsuleRfl: 0 Prescriptions as of 09/12/2017 Sig: CYANOCOBALAMIN (VIT B-12) 1,0* Inject 1 mL intramuscularly o* CYANOCOBALAMIN (VIT B-12) 1,0* Take 1 tablet by mouth once d* COMPOUNDED PRESCRIPTION 3cc syringe and 25g 1 needle* METRONIDAZOLE 0.75 % TOPICAL * APPLY 1 APPLICATION TO AF* LANSOPRAZOLE 30 MG CAPSULE,DE* as necessary CHOLECALCIFEROL (VITAMIN D3) * Take 1,000 Units by mouth onc* FLUTICASONE 500 MCG-SALMETERO* Inhale 1 Puff as instructed t* LOVASTATIN 40 MG TABLET Take 1 tablet by mouth twice * HYDROCHLOROTHIAZIDE 25 MG TAB* Take 1 tablet by mouth once d* INSULIN ASPART U-100 100 UNI* use as directed in insulin pu* BLOOD SUGAR DIAGNOSTIC STRIPS CHECK BLOOD SUGARS 8 TIMES DA* LISINOPRIL 40 MG TABLET Take 1 tablet by mouth once d* COMPOUNDED PRESCRIPTION Metronic Minimed Insulin Pump* LANCETS testing 8 times daily BD ULTRA FINE LANCETS use as directed ASPIRIN 81 MG TABLET Take one(1) tablet daily. VITAMIN C 500 MG TABLET Take one(1) tablet daily. NITROFURANTOIN MONOHYDRATE AND * Take 1 capsule by mouth twice* Problem List As Of Date 09/12/2017 Noted Resolved Type 1 diabetes mellitus (HCC) [E10.9] Hypothyroidism [E03.9] INVALID FOR* PURE HYPERCHOLESTEROLEM [E78.00] INVALID FOR* ASTHMA UNSPECIFIED [J45.909] INVALID FOR* B12 DEFIC ANEMIA NEC [D51.8] INVALID FOR* ACNE VULGARIS: Inflammatory Grade III//IV: low*INVALID FOR* HEADACHE [R51] INVALID FOR* More... NEVUS CHEST/BACK///BENIGN TAMMY SKIN TRUNK [D23.5]INVALID FOR*02/16/2017 NEVUS///BENIGN TAMMY SKIN FACE NEC [D23.30] INVALID FOR*02/16/2017 NEVI////BENIGN TAMMY SCALP/SKIN NECK [D23.4] INVALID FOR*02/16/2017 SCARS: Acne-related (chin) [L90.5] INVALID FOR*02/16/2017 SOLAR LENTIGINES///DYSCHROMIA OTHER [L81.9] INVALID FOR*02/16/2017 ACTINIC DAMAGE///CHR SOLAR SKIN DAMAGE NOS [L57*INVALID FOR*02/16/2017 Dermatitis due to cosmetics [L25.0] INVALID FOR*02/16/2017 Contact dermatitis and other eczema, due to uns*INVALID FOR*02/16/2017 Contact dermatitis and other eczema due to othe*INVALID FOR*02/16/2017 Solar Lentigines [L81.4] INVALID FOR*02/16/2017 Postinflammatory skin changes [R23.4] INVALID FOR*02/16/2017 Epidermal cyst [L72.0] INVALID FOR*02/16/2017 Prescriptions ordered this encounter Disp Refills Start End NITROFURANTOIN MONOHYDRATE AND MACROCR* 14 c* 0 09/12/2017 09/19/2017 Route: ORAL Sig: Take 1 capsule by mouth twice daily with meals for 7 days. 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 Is patient in pain?: No Allergies No Known Allergies Allergy (Verified 08/05/17 08:08) Medications ascorbic acid (vitamin C) ER 1,000 mg tablet,extended release 1,000 mg PO DAILY 06/06/17 [History Confirmed 08/05/17] aspirin 81 mg tablet,delayed release 81 mg PO QDAY 06/06/17 [History Confirmed 08/05/17] fluticasone 500 mcg-salmeterol 50 mcg/dose blistr powdr for inhalation 1 inh INHALATION Q12H 06/06/17 [History Confirmed 08/05/17] hydrochlorothiazide 25 mg tablet 25 mg PO QDAY 06/06/17 [History Confirmed 08/05/17] lansoprazole 30 mg capsule,delayed release 30 mg PO BID 06/06/17 [History Confirmed 08/05/17] levothyroxine 112 mcg tablet 112 mcg PO DAILY tab 06/06/17 [History Confirmed 08/05/17] lisinopril 40 mg tablet 40 mg PO QDAY 06/06/17 [History Confirmed 08/05/17] lovastatin 40 mg tablet 40 mg PO QDAY 06/06/17 [History Confirmed 08/05/17] Cyanocobalamin (Vitamin B-12) [Vitamin B-12] 1,000 mcg PO DAILY 07/15/17 [History Confirmed 08/05/17] insulin aspart U-100 100 unit/mL subcutaneous solution See Label Instructions SC QDAY #50 ml 08/03/17 [Rx Confirmed 08/05/17] PFSH Medical History Hypothyroid (Acute) Asthma (Acute) Type 1 diabetes mellitus (Acute) Snoring (Acute) Vitamin B 12 deficiency (Acute) Surgical History S/P hysterectomy (Acute) S/P oophorectomy (Acute) S/P colonoscopy (Acute) S/P appendectomy (Acute) Family History Father Renal cancer Social History Smoking Status: Light Smoker (<10/day) second hand exposure: No alcohol intake: never substance use type: does not use caffeine: Yes what type of physical activity do you participate in: walking frequency: 1-2 times per week seatbelt use: always HPI HPI HPI: MAYI MATA, is a 52 F who presents to the office today for patient is status post a colonoscopy at [facility] on 07/18/2017. Patient was noted to have a tubular adenoma of the descending colon as well as a tubular adenoma and hyperplastic polyp of the rectum. This is the second time I done a colonoscopy on her arm which I found numerous polyps. At this point I do not believe that her colon is stable. I believe that she needs to have yearly colonoscopies until we can make sure that there are no further polyps located within her colon. She is moving her bowels without difficulty and has no complaints. Exam GI Other: Her abdomen is soft and nontender Assessment AND Plan Problems 1. Adenomatous polyp of descending colon D12.4 Plan I will see the patient back in 1 year and perform another colonoscopy on her at that time. Coding Level of Care Code Off vis,est,level 2 Diagnoses Adenomatous polyp of descending colon D12.4 Colon polyp type: adenomatous Colon location: descending 08/05/17 0835 <Electronically signed by Sha Cortez MD> Date Sha Cortez MD Cosigner Signature: Date (if applicable) CC: Monisha Rodriguez MD OPERATIVE REPORT Observed: 07/18/2017 Status: F Source: JOAN 9:12 AM [facility] REPOSITORY [place] Medical Records Department [address] [place] [address] Operative Report 07/18/17906 MR#: [id number] Acct: [id number] Name: MAYI MATA Rep #: [id number] : 1965 52 From: Sha Cortez MD PCP: Monisha Rodriguez MD Status: REG [facility] Location: [place] [address] Problem List (1) Personal history of colonic polyps Status: Acute Report of Operation Date of Procedure: 07/18/17 Pre-Operative Diagnosis: Z 86.010 personal history of colonic polyps Post-Operative Diagnosis: Same Surgery/Procedure Performed:: 23665 colonoscopy with snare polypectomy Type of Anesthesia:: MAC Anesthesiologist: Rikci Joiner Description of Procedure: Patient was brought into the endoscopy suite placed in the left lateral decubitus position. Scope was inserted into the rectum and directed through the rectum, sigmoid colon, descending colon, transverse colon, ascending colon, to the cecum. Operative findings #1 cecum: Normal appearance no mass lesions normal ileocecal valve. 2. Ascending colon: Normal appearance no mass lesions. 3. Transverse colon: Normal appearance no mass lesions. 4. Descending colon: Small hyperplastic polyp was identified and removed with biopsy forceps completely. 5. sigmoid colon: Normal appearance no mass lesions scattered diverticuli identified 6. Rectum: Total of 4 polyps were removed from the rectum all with snare cautery technique they will had the appearance of a tubulovillous adenoma. And more than likely very similar to what I removed the last time I did her scope over a year ago. Nothing had any malignancy to it they were all easily be able removed with snare cautery technique. At this point I am going to recommend that she have another colonoscopy in a year. It Is a very odd colon. Were taking out numerous polyps every time we do this I do not think her at any stable position with regards to her colon yet. - Admit VTE Documentation VTE Present on Admission: No VTE Mechan Device Prophylaxis: None VTE Pharm Prophylaxis ordered?: No Reason prophylaxis not ordered:: Treatment Not Indicated 07/18/1712 <Electronically signed by Sha Cortez MD> Date Sha Cortez MD CC: Sha Cortez MD; Monisha Rodriguez MD Signed COLON BIOPSY (CHOOSE Observed: 07/18/2017 Status: F Source: [place]A BAJA SITE) 8:52 AM [facility] REPOSITORY Patient: MAYI MATA : 1965 (52/F) Acct Num: [id number] Phys: Dana ZHANG,Sha Unit Num: [id number] Loc: EN Specimen: [id number] Received: 07/18/17923 Spec Type: COLON BX TISSUES TISSUES: A. Descending colon B. Rectum, NOS GROSS DESCRIPTION A - Received in fixative is one container labeled with the patient's name and designated biopsy polyp descending colon. The specimen consists of one irregular fragment of light fitzpatrick soft tissue that measures 0.4 x 0.2 x 0.1 cm. The specimen is totally submitted in one cassette. B - Received in fixative is one container labeled with the patient's name and designated polyps rectum. The specimen consists of a fitzpatrick- pink polyp measuring 1 x 1 x 0.5 cm. Also present in the container are three variable size pieces of fitzpatrick-pink polyp measuring in aggregate 1 x 0.3 x 0.2 cm. The largest polyp base is inked black and this piece is bisected. The entire specimen is submitted in one cassette. / SJ:tabitha 07/18/17 TC:1 CPT: 39508 x2 HEADER OPERATION: Colonoscopy with biopsy/polypectomy PRE-OP DIAGNOSIS: History colon polyps TISSUE SUBMITTED: A. Biopsy polyp, descending colon, B. Polyp, rectum MICROSCOPIC DESCRIPTION Slides are reviewed. MICROSCOPIC DIAGNOSIS A. Polyp, descending colon, polypectomy: Tubular adenoma. B. Polyps, rectum, polypectomy: Fragments of tubular adenoma. Fragments of hyperplastic polyp. SJ:tabitha 07/19/17 Signed Bryson Saunders 07/19/17 <signature on file> Performed By: #### PCOLBX #### [place] [address] [place], [place], [address] BEDSIDE GLUCOSE Collected: 07/18/2017 Status: F Source: JOAN 7:49 AM [facility] REPOSITORY TYPE CODE TESTS RESULT OUT OF REFERENCE UNITS RANGE LAB L501.080 70-110 mg/dL High BEDSIDE GLU 152 Result Comment: MANAGEMENT OF PATIENT CARE PER NURSING PROTOCOL Performed By: #### L501.080 #### [facility] Point of Care [address] [place] [address] OBSOLETE Observed: 07/08/2017 Status: COMPLETED Source: [place] 12:00 AM [facility] REPOSITORY [facility] MAYI MATA ([id number]) 1965 F Date Time Provider Department 07/08/17 [facility] During your visit today, we recorded the following information about you: Dinora Jane Ma 07/08/2017 3:30 PM Signed B12 tabs were were called in, instead of solution. Please file Allergies As of Date: 07/08/2017 Noted Allergy Reaction CITALOPRAM 12/05/2007 6 - Diarrhea SERTRALINE 12/22/2007 6 - Diarrhea Date Reviewed: 02/16/2017 Reviewed by: Dinora Jane Ma - Fully Assessed Reason for Visit: Refill Request [94] Order(s):cyanocobalamin 1,000 mcg/mL solnInject 1 mL intramuscularly once every month. Give once weekly for the first monthDisp: 16 mLRfl: 0 Prescriptions as of 07/08/2017 Sig: CYANOCOBALAMIN (VIT B-12) 1,0* Inject 1 mL intramuscularly o* CYANOCOBALAMIN (VIT B-12) 1,0* Take 1 tablet by mouth once d* COMPOUNDED PRESCRIPTION 3cc syringe and 25g 1 needle* METRONIDAZOLE 0.75 % TOPICAL * APPLY 1 APPLICATION TO AF* LANSOPRAZOLE 30 MG CAPSULE,DE* as necessary CHOLECALCIFEROL (VITAMIN D3) * Take 1,000 Units by mouth onc* FLUTICASONE 500 MCG-SALMETERO* Inhale 1 Puff as instructed t* LOVASTATIN 40 MG TABLET Take 1 tablet by mouth twice * HYDROCHLOROTHIAZIDE 25 MG TAB* Take 1 tablet by mouth once d* INSULIN ASPART 100 UNIT/ML BELL* use as directed in insulin pu* BLOOD SUGAR DIAGNOSTIC STRIPS CHECK BLOOD SUGARS 8 TIMES DA* LISINOPRIL 40 MG TABLET Take 1 tablet by mouth once d* COMPOUNDED PRESCRIPTION Metronic Minimed Insulin Pump* LANCETS testing 8 times daily BD ULTRA FINE LANCETS use as directed ASPIRIN 81 MG TABLET Take one(1) tablet daily. VITAMIN C 500 MG TABLET Take one(1) tablet daily. Problem List As Of Date 07/08/2017 Noted Resolved Type 1 diabetes mellitus (HCC) [E10.9] Hypothyroidism [E03.9] INVALID FOR* PURE HYPERCHOLESTEROLEM [E78.00] INVALID FOR* ASTHMA UNSPECIFIED [J45.909] INVALID FOR* B12 DEFIC ANEMIA NEC [D51.8] INVALID FOR* ACNE VULGARIS: Inflammatory Grade III//IV: low*INVALID FOR* HEADACHE [R51] INVALID FOR* More... NEVUS CHEST/BACK///BENIGN TAMMY SKIN TRUNK [D23.5]INVALID FOR*02/16/2017 NEVUS///BENIGN TAMMY SKIN FACE NEC [D23.30] INVALID FOR*02/16/2017 NEVI////BENIGN TAMMY SCALP/SKIN NECK [D23.4] INVALID FOR*02/16/2017 SCARS: Acne-related (chin) [L90.5] INVALID FOR*02/16/2017 SOLAR LENTIGINES///DYSCHROMIA OTHER [L81.9] INVALID FOR*02/16/2017 ACTINIC DAMAGE///CHR SOLAR SKIN DAMAGE NOS [L57*INVALID FOR*02/16/2017 Dermatitis due to cosmetics [L25.0] INVALID FOR*02/16/2017 Contact dermatitis and other eczema, due to uns*INVALID FOR*02/16/2017 Contact dermatitis and other eczema due to othe*INVALID FOR*02/16/2017 Solar Lentigines [L81.4] INVALID FOR*02/16/2017 Postinflammatory skin changes [R23.4] INVALID FOR*02/16/2017 Epidermal cyst [L72.0] INVALID FOR*02/16/2017 Prescriptions ordered this encounter Disp Refills Start End CYANOCOBALAMIN (VIT B-12) 1,000 MCG/* 16 mL 0 07/08/2017 08/07/2017 Route: INTRAMUSCULA Sig: Inject 1 mL intramuscularly once every month. Give once weekly for the first month Encounter Status:Closed by MONISHA RODRIGUEZ MD on 07/08/17 ALLERGIES ALLERGIES DATE TYPE / CODE NAME / CODE REACTION SEVERITY SOURCE 08/05/2017 Drug No Known Unknown Joan Allergy/416 Allergies/[id number] [facility] 295292([place] [address](RXNORM) [facility] ED CT) Repository 12/22/2007 DRUG SERTRALINE DIARRHEA [address] [address]141(SNOM Repository ED CT) 12/05/2007 DRUG CITALOPRAM DIARRHEA [address] 024671(SNOM Repository ED CT) ENCOUNTERS ENCOUNTERS ADMIT/DISCHARGE ACCOUNT ADMITTING ENCOUNTER LOCATION SOURCE NUMBER CLASS 05/23/2018 [id number] Ambulatory [facility] ing:OPBI Repository 04/15/2018/04/18/20 [id number] Ambulatory [address] Repository 11/15/2017/11/17/19 [id number] Ambulatory [address] Repository 10/03/2017/10/04/19 [id number] Ambulatory BMSBuilding:B [place] [address] [facility] Repository 09/12/2017/09/14/19 [id number] Ambulatory [address] Repository 08/05/2017/08/05/19 [id number] Ambulatory BMSBuilding:B [place] [address].[facility] Repository 07/18/2017/07/18/19 [id number] Ambulatory [address] ing:EN Repository 07/18/2017 [id number] Ambulatory BMSBuilding:W [place] [facility] Repository PAYERS PAYERS ENCOUNTER GUARANTOR PAYER SUBSCRIBER SOURCE 05/23/2018 Almita Ya Primary Almita [id number] Insurance:[facility] ShearerDOB: [place] [id number] [place] Number: Repository [address]Cbk: 330 [id number] [phone] (HP) Date:[id number] [address]BK: 05/23/2018 Secondary NOT GIVENUNK [place] Insurance:SELF PAY [facility] Number: Effective Repository Date:2018-04-12 10/03/2017 Almita T Primary Almita T [place] [id number] Insurance:[employer] ShearerDOB: [place] [id number] [id number] [facility], [place] Number: Repository [address]Aiv: 330 [id number] [phone] (HP) Date:4589-38-06QC [address] [place] [address]UU: 10/03/2017 Secondary NOT GIVENUNK [place] Insurance:SELF PAY [facility] Number: Effective Repository Date:2017-10-03 08/05/2017 Almita T Primary Almita T Joan [id number] Insurance:[employer] ShearerDOB: [place] [id number] [id number] Regional [facility], [place] Number: Repository [address]Usy: 330 [id number] [phone] (HP) Date:0565-02-54OV [address] [address]GM: 08/05/2017 Secondary NOT GIVENUNK Joan Insurance:SELF PAY [facility] Number: Effective Repository Date:2017-07-27 07/18/2017 Almita T Primary Almita Ya Joan [id number] Insurance:[employer] ShearerDOB: [place] [id number] Regional Medical [facility], [place] Number: Repository [address]Bta: 330 [id number] [phone] (HP) Date:6767-72-23JG [address] [place] [address]AH: 07/18/2017 Secondary NOT GIVENUNK Joan Insurance:SELF PAY [facility] Number: Effective Repository Date:2017-06-07 07/18/2017 Almita Ya Primary Almita [id number] [facility] [id number] [id number][place] Number: Repository [address]Ozh: ([phone] [id number] [phone] () Date:5717-95-25RS [address]VGTYWKR, [place] [address]CD: 07/18/2017 Secondary NOT GIVENUNK [place] Insurance:SELF PAY [facility] Number: Effective Repository Date:2017-07-18
== END ==
PROVIDERS: Family Provider Family Medicine; PCP Family Medicine; Visit Provider Obstetrics & Gynecology
DX: Z12.31 Encounter for screening mammogram for malignant neoplasm of breast (principal)
CPT/HCPCS: 77063; 77067

== ENCOUNTER 2018-07-24 06:45 | Day surgery (SDC) | payer OTHER, SELFPAY ==
[2018-07-24] VITALS (7 sets, daily range): BP systolic 99–130; BP diastolic 69–78; PULSE 73–94; RESP 16–18; TEMP 36.1–37; O2SAT 96–100; BMI 27.3
[2018-07-24 08:00] LABS: Bedside Glucose 187 mg/dL (70-110)
--- NOTE | 2018-07-24 08:00 | COLBX_PTH ---
PATIENT: KADIE PRADHAN LOC: EN U#:[id number] AGE/SX: 53/F ROOM: RE07/24/[address]: Dr. Sha Cortez MD : 1965 BED: DIS: 07/24/2018 SPEC #: [id number] RECD: 07/24/18 10:29 STATUS: GEETA KYREE #: [id number] TC: 07/24/18 08:[address]: Sha Cortez DEPT: SURGICAL PATHOLOGY RECD BY: Bg Gallo ENTERED: 07/24/18 11:17 SP TYPE: COLON BX OTHR DR: Dr. William Rodriguez MD Tissues: Rectum, NOS Procedures: Surgery Specimen Level IV HEADER OPERATION: Colonoscopy (MAC) PRE-OP DIAGNOSIS: Screening TISSUE SUBMITTED: Biopsy of rectal polyp MICROSCOPIC DIAGNOSIS Rectal polyp, biopsy: Hyperplastic polyp. AM:tabitha 07/25/18 MICROSCOPIC DESCRIPTION Slides are reviewed. GROSS DESCRIPTION Received in fixative is one container labeled with the patient's name and designated biopsy of rectal polyp. The specimen consists of two irregular fragments of light fitzpatrick soft tissue that in aggregate measure 0.3 x 0.2 x 0.1 cm. The specimen is totally submitted in one cassette. / AM:tabitha 07/24/18 TC:5 CPT: 28319
--- NOTE | 2018-07-24 08:22 | OP.ENDO_ITS ---
Patient Name: Mayi Mata Procedure Date: 07/24/2018 7:51 AM Date of : 1965 Age: 53 Procedure: Colonoscopy Indications: High risk colon cancer surveillance: Personal history of colonic polyps Providers: Sha Cortez MD Medicines: See the Anesthesia note for documentation of the administered medications Patient Profile: This is a 53 year old female. Refer to note in patient chart for documentation of history and physical. Last Colonoscopy: 1 year ago. Complications: No immediate complications. Procedure: Pre-Anesthesia Assessment: - Prior to the procedure, a History and Physical was performed, and patient medications and allergies were reviewed. The patient's tolerance of previous anesthesia was also reviewed. The risks and benefits of the procedure and the sedation options and risks were discussed with the patient. All questions were answered, and informed consent was obtained. Prior Anticoagulants: The patient has taken no previous anticoagulant or antiplatelet agents. ASA Grade Assessment: II - A patient with mild systemic disease. After reviewing the risks and benefits, the patient was deemed in satisfactory condition to undergo the procedure. After I obtained informed consent, the scope was passed under direct vision. Throughout the procedure, the patient's blood pressure, pulse, and oxygen saturations were monitored continuously. The adult colonoscope was introduced through the anus and advanced to the cecum, identified by appendiceal orifice and ileocecal valve. The colonoscopy was performed without difficulty. The patient tolerated the procedure well. The quality of the bowel preparation was good. Scope In: 8:00:00 AM Scope Withdrawal Time 0 hours 8 minutes 41 seconds Scope Out: 8:17:51 AM Total Procedure Duration Time 0 hours 17 minutes 51 seconds Findings: A 5 mm polyp was found in the rectum. The polyp was sessile. The polyp was removed with a jumbo cold forceps. Resection and retrieval were complete. A few small-mouthed diverticula were found in the sigmoid colon. Non-bleeding internal hemorrhoids were found during retroflexion. The hemorrhoids were mild and small. The exam was otherwise without abnormality. Impression: - One 5 mm polyp in the rectum, removed with a jumbo cold forceps. Resected and retrieved. - Diverticulosis in the sigmoid colon. - Non-bleeding internal hemorrhoids. - The examination was otherwise normal. Recommendation: - Discharge patient to home. - Resume previous diet. - Continue present medications. - Await pathology results. - Repeat colonoscopy in 3 years for surveillance. - Return to my office in 1 week. Procedure Code(s): --- Professional --- 27086, Colonoscopy, flexible; with biopsy, single or multiple Diagnosis Code(s): --- Professional --- Z86.010, Personal history of colonic polyps K62.1, Rectal polyp K64.8, Other hemorrhoids K57.30, Diverticulosis of large intestine without perforation or abscess without bleeding CPT copyright 2017 [employer]. All rights reserved. The codes documented in this report are preliminary and upon retail zone specialist review may be revised to meet current compliance requirements. MD Sha Lopez MD 07/24/2018 8:21:28 AM This report has been signed electronically. Number of Addenda: 0 Note Initiated On: 07/24/2018 7:51 AM
--- NOTE | 2018-07-24 08:22 | PCM.HP.STD ---
Problem List (1) Personal history of colonic polyps Status: Acute History of Present Illness Date of Admission: 07/24/18 The patient is a 53 year old F with a personal history of colonic polyps who presents for a colonoscopy. Past Medical History Medical History: Medical History (Last Reviewed 07/24/18 @ 08:22 by Sha Cortez MD) Hypothyroid (Acute) E03.9 Asthma (Acute) J45.909 Type 1 diabetes mellitus (Acute) E10.9 Did not bring meter but feels she is doing fairly well. Some high BG after meals. Enc to check Bg in pairs to determine if a basal or bolus issue. Would possibly benefit from using her dual wave. BP sl elevated. Recheck in 2 weeks On jered inhibitor On statin Eye exam up to date. Snoring (Acute) R06.83 Vitamin B 12 deficiency (Acute) E53.8 Allergies No Known Allergies Allergy (Verified 07/20/18 11:23) Home Medications: Ambulatory Orders Medication Instructions Recorded ascorbic acid (vitamin C) ER 1,000 1,000 mg PO DAILY 06/06/17 mg tablet,extended release aspirin 81 mg tablet,delayed 81 mg PO QDAY 06/06/17 release fluticasone 500 mcg-salmeterol 50 1 inh INHALATION DAILY 06/06/17 mcg/dose blistr powdr for inhalation lansoprazole 30 mg capsule,delayed 30 mg PO PRN PRN 06/06/17 release lisinopril 40 mg tablet 40 mg PO QDAY 06/06/17 Cyanocobalamin (Vitamin B-12) 1,000 mcg PO DAILY 07/15/17 [Vitamin B-12] insulin aspart U- 100 100 unit/mL See Rx Instructions SC QDAY #50 ml 08/03/17 subcutaneous solution hydrochlorothiazide 25 mg tablet 25 mg PO QDAY #90 tab 08/17/17 lovastatin 40 mg tablet 40 mg PO QDAY #90 tab 08/25/17 blood sugar diagnostic strips See Dose Instructions .ROUTE 11/22/17 .MEDSUPPLY #720 ea Synthroid 112 mcg tablet 112 mcg PO DAILY #90 tab NS 04/11/18 blood sugar diagnostic strips See Dose Instructions .ROUTE 07/03/18 .MEDSUPPLY #720 ea lancets See Dose Instructions .ROUTE 07/03/18 .MEDSUPPLY #720 ea Surgical History: Surgical History (Last Reviewed 07/24/18 @ 08:22 by Sha Cortez MD) S/P hysterectomy (Acute) Z90.710 04/02 S/P oophorectomy (Acute) Right 04/02 S/P colonoscopy (Acute) Z98.890 07/18/17 S/P appendectomy (Acute) Z90.49 Smoking Status: Light Smoker (<10/day) Tobacco Use: Cigarettes - *Family History Maternal Family History: Family History (Last Reviewed 08/05/17 @ 08:08 by Melanie Phelps) Father Renal cancer Review of Systems Constitutional: Denies: Chills, Fever, Weight Change HEENT: Denies: Dysphasia, Ear Pain, Eye Pain, Head Aches, Hearing Changes, Sore Throat Cardiovascular: Denies: Chest Pain, Chest Pressure, Chest Tightness, Palpitations Respiratory: Denies: Cough, Hemoptysis, Shortness of breath at rest, Shortness of breath upon exertion, Wheezing VTE Information - Inpt Only VTE Present on Admission: No VTE Mechan Device Prophylaxis: None VTE Pharm Prophylaxis ordered?: No Reason prophylaxis not ordered:: Treatment Not Indicated - Physical Exam General: Alert, Oriented x3 Lungs: Clear to auscultation Cardiovascular: Regular rate, Regular Rhythm, No murmurs Abdomen: Bowel Sounds Present, Soft, Non Tender, Non-Distended Vital Signs Temp Pulse Resp BP Pulse Ox 98.6 F 92 18 130/78 H 100 07/24/18 07:03 07/24/18 07:03 07/24/18 07:03 07/24/18 07:03 07/24/18 07:03 Oxygen Delivery Method Room Air Weight: 159 lb 6.307 oz Body Mass Index (BMI) 27.3 POC Glucose 07/24/18 07:09 POC Glucose 187 H Assessment/Plan All Active Problems (Last Reviewed 08/05/17 @ 08:08 by Melanie Phelps) Personal history of colonic polyps (Acute) S/P hysterectomy (Acute) S/P oophorectomy (Acute) S/P colonoscopy (Acute) S/P appendectomy (Acute) Hypothyroid (Acute) Asthma (Acute) Type 1 diabetes mellitus (Acute) Snoring (Acute) Vitamin B 12 deficiency (Acute) My plan will be to perform a colonoscopy. I discussed with the patient the risk of the procedure including but not limited to: Bleeding, perforation requiring further surgery, inability to complete colonoscopy requiring a barium enema.
== END 2018-07-24 09:03 | disposition home or self-care (01) ==
LOC: EN 06:47 → AC 06:47
PROVIDERS: Family Provider Family Medicine; PCP Family Medicine; Referring Provider Surgery; Visit Provider Surgery
PROC: 0DJD8ZZ Inspection of Lower Intestinal Tract, Via Natural or Artificial Opening Endoscopic (ICD-10-PCS; CPT 45378; principal; 2018-07-24 07:55)
DX: Z12.11 Encounter for screening for malignant neoplasm of colon (principal); K62.1 Rectal polyp; K57.30 Diverticulosis of large intestine without perforation or abscess without bleeding; K21.9 Gastro-esophageal reflux disease without esophagitis; K64.8 Other hemorrhoids; D64.9 Anemia, unspecified; E10.9 Type 1 diabetes mellitus without complications; E03.9 Hypothyroidism, unspecified; E53.8 Deficiency of other specified B group vitamins; R03.0 Elevated blood-pressure reading, without diagnosis of hypertension; J45.909 Unspecified asthma, uncomplicated; F17.210 Nicotine dependence, cigarettes, uncomplicated; Z78.0 Asymptomatic menopausal state; Z79.82 Long term (current) use of aspirin; Z79.4 Long term (current) use of insulin; Z79.899 Other long term (current) drug therapy; Z86.010 Personal history of colon polyps
CPT/HCPCS: 45380; 82962; 88305; J7120; J2405

== ENCOUNTER → 2018-08-26 07:58 | Outpatient (CLI) | payer OTHER, SELFPAY ==
[2018-08-21 16:06] VITALS: BMI 27.3
[2018-08-26 09:02] LABS: Hemoglobin A1c 7.4 % (4.2-6.3)
[2018-08-26 09:08] LABS: Microalbumin,Random Urine 13.2 mg/L (NO RANGE EST.); Microalbumin:Creatinine Ratio 12.9 mg/g CRE (<30 mg/g CRE)
[2018-08-26 09:09] LABS: ALB/GLOB Ratio 1.1 RATIO (0.9-2.4); AST(SGOT) 121 U/L (15-37); Alanine Aminotransfer ALT/SGPT 74 U/L (13-56); Albumin, Serum 3.7 g/dL (3.2-5.0); Alkaline Phosphatase 102 U/L (45-117); Anion Gap 14 (5-15); BUN 10 mg/dL (7-18); BUN/Creat Ratio 13.4 RATIO (10-20); Calcium,Total 8.9 mg/dL (8.5-10.1); Chloride 102 mmol/L (98-107); Cholesterol 164 mg/dL (200); Creatinine, Serum 0.75 mg/dL (0.55-1.02); EST Glomerular Filtration Rate 86 mL/min (>60); Est Glom Filt Rate - Afr Amer 104 mL/min (>60); Globulin 3.5 g/dL (2.2-4.2); Glucose 200 mg/dL (74-106); High Density Lipoprotein 100 mg/dL; Potassium 4.2 mmol/L (3.5-5.1); Protein, Total 7.2 g/dL (6.4-8.2); Sodium Level 137 mmol/L (136-145); Thyroid Stim Hormone (TSH) 2.68 uIU/mL (0.358-3.74); Triglycerides 104 mg/dL; Very Low Density Lipoprotein 21 mg/dL (5-40)
== END ==
PROVIDERS: Family Provider Family Medicine; PCP Family Medicine; Referring Provider Nurse Practitioner; Visit Provider Nurse Practitioner
DX: E10.9 Type 1 diabetes mellitus without complications (principal)
CPT/HCPCS: 36415; 80053; 80061; 82043; 82570; 83036; 84443

== ENCOUNTER → 2019-06-12 16:15 | Outpatient (CLI) | payer OTHER, SELFPAY ==
[2018-08-21 16:06] VITALS: BMI 27.3
--- NOTE | 2019-06-12 16:18 | BI_ITS ---
MAMMOGRAPHY - BILATERAL SCREENING REASON FOR EXAM: Female, 54 years old. Routine annual screening examination. PERTINENT HISTORY: Non-contributory. TECHNIQUE: Digital bilateral breast tamara (3D mammographic acquisition) in the CC and MLO projections. 2-D mediolateral oblique (MLO) and craniocaudad (CC) views of both breasts were obtained. CAD: Full Field Digital Mammography with Computer Added Detection was performed. COMPARISON: Comparison is made with prior study dated May 23, 2018 and April 26, 2017. FINDINGS: Breast Composition: The breasts are extremely dense, which lowers the sensitivity of mammography. There are no dominant masses or suspicious calcifications. Stable benign-appearing bilateral axillary lymph nodes. No other significant abnormalities are identified. There has been no significant change since the prior study. BI/SCREEN MAMM (CAD) W/TAMARA BILAT IMPRESSION: Stable bilateral screening mammogram. Yearly follow-up mammogram recommended. (A) ASSESSMENT CATEGORY: BIRADS Category 2: Benign. A letter regarding these results will be sent to the patient by the facility within 30 days. Approximately 10% of breast cancers are not detected by mammography. A normal mammogram should not delay biopsy of a clinically suspicious abnormality. [id number] Electronically Signed: Brant Thomas, at 8:26 EST , Service support ,
== END ==
PROVIDERS: Family Provider Family Medicine; PCP Family Medicine; Referring Provider Obstetrics & Gynecology; Visit Provider Obstetrics & Gynecology
DX: Z12.31 Encounter for screening mammogram for malignant neoplasm of breast (principal)
CPT/HCPCS: 77063; 77067

== ENCOUNTER → 2020-07-03 13:36 | Outpatient (CLI) | payer OTHER, SELFPAY ==
[2020-01-14 15:31] VITALS: BMI 27.3
--- NOTE | 2020-07-03 13:40 | BI_ITS ---
MAMMOGRAPHY - BILATERAL SCREENING REASON FOR EXAM: Female, 55 years old. Routine annual screening examination. PERTINENT HISTORY: Non-contributory. TECHNIQUE: Digital bilateral breast tamara (3D mammographic acquisition) in the CC and MLO projections. 2-D mediolateral oblique (MLO) and craniocaudad (CC) views of both breasts were obtained. CAD: Full Field Digital Mammography with Computer Added Detection was performed. COMPARISON: Comparison is made with prior study dated 06/12/2019 and 05/23/2018. FINDINGS: Breast Composition: The breasts are extremely dense, which lowers the sensitivity of mammography. There are no dominant masses or suspicious calcifications. Stable small benign-appearing lateral axillary lymph nodes. No other significant abnormalities are identified. There has been no significant change since the prior study. BI/SCREEN MAMM (CAD) W/TAMARA BILAT IMPRESSION: Stable bilateral screening mammogram. Yearly follow-up mammogram recommended. (A) ASSESSMENT CATEGORY: BIRADS Category 2: Benign. A letter regarding these results will be sent to the patient by the facility within 30 days. Approximately 10% of breast cancers are not detected by mammography. A normal mammogram should not delay biopsy of a clinically suspicious abnormality. [id number] Electronically Signed: Brant Thomas, at 14:23 EST , Service support ,
== END ==
PROVIDERS: PCP Family Medicine; Referring Provider Student in an Organized Health Care Education/Training Program; Visit Provider Student in an Organized Health Care Education/Training Program
DX: Z12.31 Encounter for screening mammogram for malignant neoplasm of breast (principal)
CPT/HCPCS: 77063; 77067

== ENCOUNTER → 2020-08-26 15:06 | Outpatient (CLI) | payer OTHER, SELFPAY ==
[2020-08-26 18:07] LABS: Vitamin B12 734 pg/mL (211-911); Vitamin D,25 Hydroxy 50.9 ng/mL
[2020-08-26 18:10] LABS: AST(SGOT) 40 U/L (15-37); Alanine Aminotransfer ALT/SGPT 36 U/L (13-56); Albumin, Serum 3.8 g/dL (3.2-5.0); Alkaline Phosphatase 131 U/L (45-117); Anion Gap 12 (5-15); BUN 11 mg/dL (7-18); BUN/Creat Ratio 13.6 RATIO (10-20); Calcium,Total 9.3 mg/dL (8.5-10.1); Chloride 104 mmol/L (98-107); Cholesterol 171 mg/dL (200); Creatinine, Serum 0.81 mg/dL (0.55-1.02); EST Glomerular Filtration Rate 78 mL/min (>60); Est Glom Filt Rate - Afr Amer 94 mL/min (>60); Globulin 3.7 g/dL (2.2-4.2); Glucose 184 mg/dL (74-106); High Density Lipoprotein 101 mg/dL; Potassium 3.8 mmol/L (3.5-5.1); Protein, Total 7.5 g/dL (6.4-8.2); Sodium Level 138 mmol/L (136-145); T4 Free Direct 1.48 ng/dL (0.76-1.46); Thyroid Stim Hormone (TSH) 0.01 uIU/mL (0.358-3.74); Triglycerides 162 mg/dL; Very Low Density Lipoprotein 32 mg/dL (5-40)
[2020-08-26 18:20] LABS: Microalbumin:Creatinine Ratio 12.1 mg/g CRE (<30 mg/g CRE)
== END ==
PROVIDERS: PCP Family Medicine; Visit Provider Internal Medicine Endocrinology, Diabetes & Metabolism
DX: E06.3 Autoimmune thyroiditis (principal); E10.9 Type 1 diabetes mellitus without complications; E53.8 Deficiency of other specified B group vitamins; E55.9 Vitamin D deficiency, unspecified
CPT/HCPCS: 36415; 80053; 80061; 82043; 82306; 82570; 82607; 84439; 84443

== ENCOUNTER 2021-07-13 06:38 | Day surgery (SDC) | payer OTHER, SELFPAY ==
[2021-07-13 07:10] VITALS: BP 120/77; PULSE 118; RESP 18; TEMP 36.6; O2SAT 100; BMI 27.2
[2021-07-13] MEDS: Lactated Ringers 1,000 ML 15 ML IV (07:15)
--- NOTE | 2021-07-13 07:25 | HP.PCM_ITS ---
HPI - General HPI Narrative KADIE PRADHAN, is a 56 F who presents for colonoscopy. Patient's last colonoscopy was in June [address] Cortez?did have 1 rectal polyp at that time recommend follow-up in 3 years. Patient does not have a history of colon polyps. Patient does not have any immediate family with history of colon cancer , does have maternal grandmother and grandfather?they were older in age. Patient has bowel moods daily denies any blood. Patient denies any chronic abdominal pain/nausea/vomiting/reflux. [facility] Medical History (Updated 07/07/21 @ 12:15 by Bharait Porras) Alcohol use Asthma Diabetes Hypothyroid Insulin dependent diabetes mellitus Post-menopausal Smoker Snoring Thyroid disease Type 1 diabetes mellitus Vitamin B 12 deficiency Wears glasses Home Medications ascorbic acid (vitamin C) 1,000 mg tablet,extended release 1,000 mg PO DAILY 06/06/17 [History Last Taken Unknown] aspirin 81 mg tablet,delayed release 81 mg PO QDAY 06/06/17 [History Last Taken 07/11/17] fluticasone 500 mcg-salmeterol 50 mcg/dose blistr powdr for inhalation 1 inh INHALATION DAILY 06/06/17 [History Last Taken 07/13/21 06:15] lansoprazole 30 mg capsule,delayed release 30 mg PO PRN PRN 06/06/17 [History Last Taken Unknown] cyanocobalamin (vitamin B-12) 1,000 mcg PO DAILY 07/15/17 [History Last Taken Unknown] Lactobacillus acidophilus-Bifidobac.animalis 2.5 billion cell capsule 1 cap PO DAILY 12/12/19 [History Last Taken Unknown] blood sugar diagnostic #450 ea 06/06/20 [Rx Last Taken Unknown] insulin syringe-needle U-100 0.3 mL 31 gauge x 11/09 #20 ea 07/10/20 [Rx Last Taken Unknown] blood sugar diagnostic #10 ea 08/01/20 [History Last Taken Unknown] blood sugar diagnostic #450 ea 08/01/20 [Rx Last Taken Unknown] insulin aspart U-100 100 unit/mL subcutaneous solution See Rx Instructions SC QDAY #50 ml 08/12/20 [Rx Last Taken Unknown] cholecalciferol (vitamin D3) 25 mcg (1,000 unit) capsule 25 mcg PO DAILY 08/26/20 [History Last Taken Unknown] levothyroxine 100 mcg tablet 100 mcg PO DAILY #90 tab 08/28/20 [Rx Last Taken 07/13/21 06:15] hydrochlorothiazide 25 mg tablet 25 mg PO QDAY #90 tab 10/17/20 [Rx Last Taken Unknown] atorvastatin 20 mg tablet 20 mg PO DAILY #90 tab 04/06/21 [Rx Last Taken Un known] lisinopril 40 mg tablet 40 mg PO QDAY #90 tab 05/22/21 [Rx Last Taken 07/13/21 06:15] Allergy/AdvReac Type Severity Reaction Status Date / Time No Known Allergies Allergy Verified 07/07/21 12:01 Family History Father Malignant tumor of kidney Arthritis Grandfather Colon cancer Surgical History (Updated 07/07/21 @ 12:12 by Bharati Porras) S/P appendectomy S/P colonoscopy S/P hysterectomy S/P oophorectomy Social History Smoking Status: Light Smoker (<10/day) second hand exposure: No alcohol intake: never substance use type: does not use caffeine: Yes what type of physical activity do you participate in: walking frequency: 1-2 times per week seatbelt use: always Past Medical/Surgical History Planned Operation Planned Operative Procedure/s: COLON-OA S.O.S: No Previous Hospitalizations/Surgeries HX Hospitalizations: No HX of Surgeries: hysterectomy appendectomy colonoscopy X2 hospitalized for ketoacidosis in the past Any Problems With Anesthesia: Yes (nausea and vomiting) You/Your Family Experience Fever (Hyperthermia) With Anes: No Cholinesterase deficiency: No Cardiovascular Hx Chest Pain within Last 2 months: No Hx of Irregular Heartbeat and/or Afib: No Hx Heart Attack: No Hx Congestive Heart Failure: No Hx Rheumatic Fever: No Hx Hypertension: No (preventive on meds for diabetes and kidney protection) Hx Internal Defibrillator: No Hx Pacemaker: No Hx Cardiac Catheterization: No Hx Cardiac Surgery/Stents/Etc.: No Hx Stress Test: No Hx Pain in Legs when Walking/Leg Cramps: No Respiratory Chronic Cough: No HX of Shortness of Breath: No Hoarseness: No Hx Chronic Obstructive Pulmonary Disease (COPD): No Hx Asthma: Yes (exercised induced/inhaler bid) Hx Emphysema: No Hx Sleep Apnea: No Hx Respiratory Tract Infection/Cold (presently): No Do You Snore Loudly (louder than talking or can be heard): No Do You Often Feel Tired/ Fatigued/ Sleepy Dring Daytime?: No Has Anyone Observed You Stop Breathing During Sleep?: No Result (for STOP score): Negative Hx Smoking: Yes Smoking Status: Light Smoker (<10/day) Gastrointestinal Hx Gastroesophageal Reflux: Yes Controlled With Meds: Yes (PRN) Hx Gastrointestinal Disorders: No Hx Gastrointestinal Bleed: No Hx Ulcer: No Hx Hiatal Hernia: No Difficulty Chewing/Swallowing: No Special diet followed at home: Yes (diabetic) Hx Unplanned Weight Loss of 20#: No HX Unplanned Weight Gain of 20#: No Neurological Hx Seizures: No HX Syncope/Blackout Spells/Unconsciousness: No Hx Transient Ischemic Attacks (TIA): No Hx Multiple Sclerosis: No Hx Parkinson's Disease: No Hx Head/Neck Injury: No Hx Headaches: No Hx Back Injury/Pain: No Recent Onset of Speech Difficulty: No Restless Legs: No Does patient have nerve stimulator: No Blood Disorder Hx Leukemia: No Bleeding Tendencies: No Hx Deep Vein Thrombosis: No Hx High Cholesterol: No (on med preventive) Blood Transmitted Disease: No Hx Hepatitis: No Hx Cirrhosis: No Hx Anemia: Yes (in the past) Hx Blood Disorders: No Reproduction Is Patient Lactating: No Hx Hysterectomy: Yes Hx Tubal Ligation: No Are You Post Menopause: Yes Genitourinary Hx Renal Disease: No Musculoskeletal Hx Arthritis: No Hx Rheumatoid Arthritis: No Hx Gout: No Recent Onset of an Orthopedic Problem: No Endocrine Hx Diabetes: Yes Insulin: Yes Thyroid Disease: Yes (on med) Hx Steroid Therapy: No Psycho/Social Hx Substance Use: No Hx Alcohol Use: No Hx Anxiety: No Hx Depression: No Mental Illness: No Hx Dementia: No Miscellaneous Hx Cancer: No Recent Exposure to Contagious Disease: No Hx of C-Diff: No Any Loose Teeth: No Allergies No Known Allergies Allergy (Verified 07/07/21 12:01) Discharge Is Pt Admitted From a [facility], or a Penitentiary: No After D/C, Where Do you Plan to Go: Return Home Vital Signs Vital Signs Vital Signs: 07/13/21 07:10 Temperature 97.8 F Temperature Source Temporal Pulse Rate 118 H Respiratory Rate 18 Respiratory Pattern Normal Blood Pressure 120/77 Blood Pressure Mean 91 Blood Pressure Source Monitor Blood Pressure Position Sitting Blood Pressure Location Left Arm Pulse Ox 100 Oxygen Delivery Method Room Air Weight Weight: 158 lb 11.725 oz Body Mass Index (BMI) 27.2 Physical Exam Const alert, oriented x3 and no apparent distress HEENT normocephalic and head/scalp atraumatic Resp normal respiratory effort Cardio regular rate GI soft to palpation and non-tender; Negative for non-distended GI Narrative: Left-sided insulin pump Palpation: Negative for guarding Extremity no clubbing, cyanosis or edema Neuro CN's II-XII intact bilaterally Psych mental status grossly normal Assessment & Plan Assessment/Plan (1) Personal history of colonic polyps: Procedure Criteria Type of Procedure Procedure Type: Elective Elective Risks - COVID COVID Risk Discussion: The surgeon/proceduralist and patient have discussed in detail the risk of exposure to and/or potential harm posed by the COVID-19 virus with having a surgery/procedure at this time versus the risk of delaying the surgery/procedure. It is not possible to know either the risk of delaying the surgery or procedure or chance of getting an infection with perfect accuracy, but a joint decision was made between the patient and the surgeon/proceduralist to proceed at this time with the scheduled surgery/procedure as indicated on the consent form. Surgery Risks - Colonoscopy Risks Include but are not Limited To: Risks include but are not limited to: Bleeding, perforation requiring further surgery, inability to complete colonoscopy requiring barium enema. Patient and her no further question this time.
--- NOTE | 2021-07-13 08:00 | COLBX_PTH ---
PATIENT: KADIE PRADHAN LOC: EN U#:[id number] AGE/SX: 56/F ROOM: RE07/13/[address]: Dr. Whitney Barrientos MD : 1965 BED: DIS: 07/13/2021 SPEC #: [id number] RECD: 07/13/21 09:45 STATUS: GEETA KYREE #: [id number] TC: 07/13/21 08:[address]: Whitney Barrientos DEPT: SURGICAL PATHOLOGY RECD BY: Jeanette Hart ENTERED: 07/13/21 11:11 SP TYPE: COLON BX OTHR DR: Dr. William Rodriguez MD Tissues: A - Ascending colon B - Transverse colon C - Transverse colon D - COLON BIOPSY E - Descending colon F - Sigmoid colon biopsy G - Rectum, NOS Procedures: Surgery Specimen Level IV HEADER OPERATION: Colonoscopy ? open access (MAC) PRE-OP DIAGNOSIS: History of colonic polyps TISSUE SUBMITTED: A ? Ascending colon biopsy, B ? Distal transverse polyp, C ? Mid transverse polyps x6, D ? Splenic flexure polyp, E ? Descending polyp at 50, F ? Proximal sigmoid polyp biopsies x2, G ? Rectal polyp biopsies x2 MICROSCOPIC DIAGNOSIS A. Ascending colon, biopsy: Fragments of tubular adenoma. Fragments of hyperplastic polyp. B. Distal transverse colon polyp, biopsy: Fragments of hyperplastic polyp. Fragment of tubular adenoma. C. Mid transverse colon polyp, biopsy: Fragments of tubular adenoma. D. Splenic flexure, biopsy: Tubular adenoma. E. Descending colon polyp at 50 cm, biopsy: Fragments of tubular adenoma. F. Proximal sigmoid colon polyp, biopsy: Fragments of tubular adenoma. G. Rectal polyps, biopsy: Consistent with fragments of hyperplastic polyp. AM:tabitha 07/14/2021 MICROSCOPIC DESCRIPTION Slides are reviewed. GROSS DESCRIPTION A - Received in fixative is one container labeled with the patient's name and designated ascending colon biopsy. The specimen consists of multiple irregular fragments of light fitzpatrick soft tissue that in aggregate measure 2 x 0.5 x 0.1 cm. The specimen is totally submitted in one cassette. B - Received in fixative is one container labeled with the patient's name and designated distal transverse polyp. The specimen consists of multiple irregular fragments of light fitzpatrick soft tissue that in aggregate measure 1 x 0.3 x 0.1 cm. The specimen is totally submitted in one cassette. C - Received in fixative is one container labeled with the patient's name and designated mid transverse polyps x6. The specimen consists of multiple irregular fragments of light fitzpatrick soft tissue that in aggregate measure 1.5 x 0.6 x 0.1 cm. The specimen is totally submitted in one cassette. D - Received in fixative is one container labeled with the patient's name and designated splenic flexure polyps. The specimen consists of one irregular fragment of light fitzpatrick soft tissue that measures 0.3 x 0.3 x 0.1 cm. The specimen is totally submitted in one cassette. E - Received in fixative is one container labeled with the patient's name and designated descending polyp at 50. The specimen consists of multiple irregular fragments of light fitzpatrick soft tissue that in aggregate measure 2 x 1 x 0.2 cm. The specimen is totally submitted in one cassette. F - Received in fixative is one container labeled with the patient's name and designated proximal sigmoid polyp. The specimen consists of multiple irregular fragments of light fitzpatrick soft tissue that in aggregate measure 0.5 x 0.4 x 0.1 cm. The specimen is totally submitted in one cassette. G - Received in fixative is one container labeled with the patient's name and designated rectal polyp biopsy x2. The specimen consists of multiple irregular fragments of light fitzpatrick soft tissue that in aggregate measure 0.5 x 0.5 x 0.1 cm. The specimen is totally submitted in one cassette. / SJ:rg 07/13/2021 TC:5 CPT: 78022 x7
[2021-07-13 09:31] VITALS: BP 120/77; BP 78/44; PULSE 86; RESP 16; TEMP 36.3; O2SAT 100
[2021-07-13 09:35] VITALS: BP 120/77; BP 76/51; PULSE 83; RESP 16; O2SAT 100
--- NOTE | 2021-07-13 09:36 | OP.COLON_ITS ---
Patient Name: Mayi Mata Procedure Date: 07/13/2021 7:51 AM Date of : 1965 Age: 56 Procedure: Colonoscopy Indications: High risk colon cancer surveillance: Personal history of colonic polyps Providers: Whitney Barrientos MD Medicines: Monitored Anesthesia Care Patient Profile: This is a 56 year old female. Last Colonoscopy: 2019. Complications: No immediate complications. Procedure: Pre-Anesthesia Assessment: - Prior to the procedure, a History and Physical was performed, and patient medications and allergies were reviewed. The patient's tolerance of previous anesthesia was also reviewed. The risks and benefits of the procedure and the sedation options and risks were discussed with the patient. All questions were answered, and informed consent was obtained. Prior Anticoagulants: The patient has taken no previous anticoagulant or antiplatelet agents. ASA Grade Assessment: Per anesthesia. After reviewing the risks and benefits, the patient was deemed in satisfactory condition to undergo the procedure. After I obtained informed consent, the scope was passed under direct vision. Throughout the procedure, the patient's blood pressure, pulse, and oxygen saturations were monitored continuously. The pediatric colonoscope was introduced through the anus and advanced to the cecum, identified by the ileocecal valve. The colonoscopy was performed without difficulty. The colonoscopy was technically difficult and complex due to a tortuous colon. The patient tolerated the procedure well. The quality of the bowel preparation was good. Scope In: 8:07:51 AM Scope Withdrawal Time 1 hour 1 minute 48 seconds Scope Out: 9:22:54 AM Total Procedure Duration Time 1 hour 15 minutes 3 seconds Findings: Hemorrhoids were found on perianal exam. Multiple small-mouthed diverticula were found in the sigmoid colon. Four sessile polyps were found in the rectum and ascending colon. The polyps were less than 5 mm in size. These polyps were removed with a cold biopsy forceps. Resection and retrieval were complete. Ten semi-pedunculated polyps were found in the proximal sigmoid colon, splenic flexure, mid transverse colon and distal transverse colon. The polyps were less than 5 mm in size. These polyps were removed with a hot snare. Resection and retrieval were complete. A 10 mm polyp was found in the descending colon. The polyp was pedunculated. The polyp was removed with a piecemeal technique using a hot snare. Resection and retrieval were complete. External and internal hemorrhoids were found. The hemorrhoids were Grade I (internal hemorrhoids that do not prolapse). Impression: - Hemorrhoids found on perianal exam. - Diverticulosis in the sigmoid colon. - Four less than 5 mm polyps in the rectum and in the ascending colon, removed with a cold biopsy forceps. Resected and retrieved. - Ten less than 5 mm polyps in the proximal sigmoid colon, at the splenic flexure, in the mid transverse colon and in the distal transverse colon, removed with a hot snare. Resected and retrieved. - One 10 mm polyp in the descending colon, removed piecemeal using a hot snare. Resected and retrieved. - External and internal hemorrhoids. Recommendation: - Repeat colonoscopy 1-2 years for surveillance based on pathology results. - Continue present medications. - Discharge patient to home. - Resume previous diet. Procedure Code(s): --- Professional --- 32160, PT, Colonoscopy, flexible; with removal of tumor(s), polyp(s), or other lesion(s) by snare technique 35527, 58, Colonoscopy, flexible; with biopsy, single or multiple Diagnosis Code(s): --- Professional --- Z86.010, Personal history of colonic polyps K64.0, First degree hemorrhoids K62.1, Rectal polyp D12.2, Benign neoplasm of ascending colon D12.5, Benign neoplasm of sigmoid colon D12.3, Benign neoplasm of transverse colon (hepatic flexure or splenic flexure) D12.4, Benign neoplasm of descending colon K57.30, Diverticulosis of large intestine without perforation or abscess without bleeding CPT copyright 2017 [employer]. All rights reserved. The codes documented in this report are preliminary and upon business excellence leader review may be revised to meet current compliance requirements. MD Whitney Granados MD 07/13/2021 9:36:03 AM This report has been signed electronically. Number of Addenda: 0 Note Initiated On: 07/13/2021 7:51 AM
--- NOTE | 2021-07-13 09:37 | OP.CCLET_ITS ---
07/13/2021 William Rodriguez Re : Colonoscopy procedure for Mayi Lawrence Palmarejo This procedure was performed on Tuesday, July 13, 2021. My impressions and recommendations are as follows: Impressions : - Hemorrhoids found on perianal exam. - Diverticulosis in the sigmoid colon. - Four less than 5 mm polyps in the rectum and in the ascending colon, removed with a cold biopsy forceps. Resected and retrieved. - Ten less than 5 mm polyps in the proximal sigmoid colon, at the splenic flexure, in the mid transverse colon and in the distal transverse colon, removed with a hot snare. Resected and retrieved. - One 10 mm polyp in the descending colon, removed piecemeal using a hot snare. Resected and retrieved. - External and internal hemorrhoids. Recommendations : - Repeat colonoscopy 1-2 years for surveillance based on pathology results. - Continue present medications. - Discharge patient to home. - Resume previous diet. My findings are described in the full procedure note, which is enclosed. If I can be of further assistance, please feel free to contact me at Doctor phone number(s): , Work: . Sincerely, MD Whitney Granados MD 07/13/2021 9:36:03 AM This report has been signed electronically.
[2021-07-13 09:40] VITALS: BP 120/77; BP 92/60; PULSE 83; RESP 16; O2SAT 99
[2021-07-13 09:45] VITALS: BP 120/77; BP 91/62; PULSE 81; RESP 16; TEMP 36.4; O2SAT 99
[2021-07-13 10:10] VITALS: BP 120/77
== END 2021-07-13 23:59 | disposition home or self-care (01) ==
LOC: EN 06:40 → AC 06:42
PROVIDERS: PCP Family Medicine; Referring Provider Family Medicine; Visit Provider Surgery
PROC: 0DJD8ZZ Inspection of Lower Intestinal Tract, Via Natural or Artificial Opening Endoscopic (ICD-10-PCS; CPT 45378; principal; 2021-07-13 07:55)
DX: D12.2 Benign neoplasm of ascending colon (principal); E10.9 Type 1 diabetes mellitus without complications; Z79.4 Long term (current) use of insulin; K64.0 First degree hemorrhoids; D12.3 Benign neoplasm of transverse colon; Z96.41 Presence of insulin pump (external) (internal); K64.4 Residual hemorrhoidal skin tags; K62.1 Rectal polyp; D12.4 Benign neoplasm of descending colon; K57.30 Diverticulosis of large intestine without perforation or abscess without bleeding; Z86.010 Personal history of colon polyps; E03.9 Hypothyroidism, unspecified; F17.200 Nicotine dependence, unspecified, uncomplicated; Z79.82 Long term (current) use of aspirin; Z90.49 Acquired absence of other specified parts of digestive tract; Z78.0 Asymptomatic menopausal state; J45.909 Unspecified asthma, uncomplicated; Z79.899 Other long term (current) drug therapy
CPT/HCPCS: 45385; 45380; 88305; J7120; J2405

== ENCOUNTER 2021-08-07 15:02 | Outpatient (CLI) | payer OTHER, SELFPAY ==
--- NOTE | 2021-08-07 15:36 | BI_ITS ---
MAMMOGRAPHY - BILATERAL SCREENING REASON FOR EXAM: Female, 56 years old. Routine annual screening examination. PERTINENT HISTORY: Non-contributory. TECHNIQUE: Digital bilateral breast tamara (3D mammographic acquisition) in the CC and MLO projections. 2-D mediolateral oblique (MLO) and craniocaudad (CC) views of both breasts were obtained. CAD: Full Field Digital Mammography with Computer Added Detection was performed. COMPARISON: Comparison is made with prior study dated 07/03/2020 06/12/2019. FINDINGS: Breast Composition: The breasts are extremely dense, which lowers the sensitivity of mammography. There are no dominant masses or suspicious calcifications. Stable small benign appearing bilateral axillary nodes. No other significant abnormalities are identified. There has been no significant change since the prior study. BI/SCRN MAMM (CAD)W/TAMARA BILAT IMPRESSION: Stable bilateral screening mammogram. Yearly follow-up mammogram recommended. (A) ASSESSMENT CATEGORY: BIRADS Category 2: Benign. A letter regarding these results will be sent to the patient by the facility within 30 days. Approximately 10% of breast cancers are not detected by mammography. A normal mammogram should not delay biopsy of a clinically suspicious abnormality. [id number] Electronically Signed: Brant Thomas MD at 8:15 EST ,
== END 2021-08-07 23:59 | disposition home or self-care (01) ==
LOC: OPBI 15:34
PROVIDERS: PCP Family Medicine; Referring Provider Student in an Organized Health Care Education/Training Program; Visit Provider Student in an Organized Health Care Education/Training Program
DX: Z12.31 Encounter for screening mammogram for malignant neoplasm of breast (principal)
CPT/HCPCS: 77063; 77067

== ENCOUNTER 2021-09-10 10:44 | Outpatient (CLI) | payer OTHER, SELFPAY ==
[2021-09-10 12:37] LABS: AST(SGOT) 69 U/L (15-37); Alanine Aminotransfer ALT/SGPT 42 U/L (13-56); Albumin, Serum 3.6 g/dL (3.2-5.0); Alkaline Phosphatase 105 U/L (45-117); Anion Gap 9 (5-15); BUN 7 mg/dL (7-18); BUN/Creat Ratio 10.6 RATIO (10-20); Calcium,Total 9.3 mg/dL (8.5-10.1); Chloride 106 mmol/L (98-107); Cholesterol 189 mg/dL (200); Creatinine, Serum 0.66 mg/dL (0.55-1.02); EST Glomerular Filtration Rate 98 mL/min (>60); Est Glom Filt Rate - Afr Amer 119 mL/min (>60); Globulin 3.7 g/dL (2.2-4.2); Glucose 143 mg/dL (74-106); High Density Lipoprotein 85 mg/dL; Protein, Total 7.3 g/dL (6.4-8.2); Sodium Level 137 mmol/L (136-145); T4 Free Direct 1.24 ng/dL (0.76-1.46); Thyroid Stim Hormone (TSH) 0.06 uIU/mL (0.358-3.74); Triglycerides 89 mg/dL; Very Low Density Lipoprotein 18 mg/dL (5-40); Vitamin D,25 Hydroxy 57.8 ng/mL
[2021-09-10 12:52] LABS: Microalbumin,Random Urine 11.5 mg/L (NO RANGE EST.); Microalbumin:Creatinine Ratio 23.6 mg/g CRE (<30 mg/g CRE)
== END 2021-09-10 23:59 | disposition home or self-care (01) ==
LOC: BIMLAB 10:45
PROVIDERS: PCP Family Medicine; Referring Provider Internal Medicine Endocrinology, Diabetes & Metabolism; Visit Provider Internal Medicine Endocrinology, Diabetes & Metabolism
DX: E03.8 Other specified hypothyroidism (principal); E10.9 Type 1 diabetes mellitus without complications; E06.3 Autoimmune thyroiditis; E78.2 Mixed hyperlipidemia; E55.9 Vitamin D deficiency, unspecified
CPT/HCPCS: 36415; 80053; 80061; 82043; 82306; 82570; 84439; 84443

== ENCOUNTER 2021-10-17 20:27 | Inpatient (IN) | payer OTHER, SELFPAY ==
[2021-10-17 20:28] VITALS: BP 161/79; PULSE 109; RESP 16; TEMP 36.6; O2SAT 100; BMI 25.7
[2021-10-17] MEDS: 0.9% Normal Saline 1,000 ML 1000 ML IV (21:00)
[2021-10-17] MEDS: Ondansetron 4 MG/2 ML Vial IV (21:00)
[2021-10-17 21:28] LABS: AST(SGOT) 102 U/L (15-37); Alanine Aminotransfer ALT/SGPT 51 U/L (13-56); Albumin, Serum 3.7 g/dL (3.2-5.0); Alkaline Phosphatase 138 U/L (45-117); Anion Gap 19 (5-15); BUN 6 mg/dL (7-18); BUN/Creat Ratio 8.5 RATIO (10-20); Bilirubin, Direct 0.43 mg/dL (0.00-0.30); Calcium,Total 8.5 mg/dL (8.5-10.1); Chloride 85 mmol/L (98-107); Creatinine, Serum 0.71 mg/dL (0.55-1.02); EST Glomerular Filtration Rate 90 mL/min (>60); Est Glom Filt Rate - Afr Amer 109 mL/min (>60); Estimated Creatinine Clearance 75.49 ml/min; Glucose 229 mg/dL (74-106); Lipase 58 U/L (73-393); Potassium 4.2 mmol/L (3.5-5.1); Protein, Total 6.7 g/dL (6.4-8.2); Sodium Level 121 mmol/L (136-145)
[2021-10-17 21:33] LABS: Absolute Lymphocyte Count 0.87 X10^3/uL (0.83-4.51); Basophil# 0.03 X10^3/uL; Basophil% 0.6 % (0-1); Eosinophil# 0.01 X10^3/uL; Eosinophils% 0.2 % (0-5); Hematocrit 30.5 % (37-47); Hemoglobin 10.8 g/dL (12.0-15.0); Lymphocyte # 0.87 X10^3/ul (0.83-4.51); Lymphocyte % 16.2 % (19-41); Mean Corp Hgb Conc 35.4 g/dL (32-36); Mean Corpuscular Hgb 34.1 pg (27.0-32.0); Mean Corpuscular Volume 96.2 fL (81-99); Monocyte% 7.4 % (0-10); NRBC Flagged by Analyzer 0 % (0-5); Neutrophil # 4.04 X10^3/uL (2.7-7.7); Platelet Count 202 K/mm3 (150-450); RBC Distribution Width CV 12.8 % (11.6-14.6); RBC Distribution Width SD 45.1 fl (35.1-43.9); Red Blood Count 3.17 M/mm3 (4.2-5.4); White Blood Count 5.4 K/mm3 (4.4-11.0)
[2021-10-17 22:12] LABS: Bacteria 0 SEEN /hpf (None Seen); Mucous, Urine 0 SEEN /hpf (<or=2+); Red Blood Cells-Urine 0 SEEN /hpf (0-5); Squamous Epithelial Cells - UA 0 SEEN /hpf (5-10); White Blood Cells 0 SEEN /hpf (0-5)
[2021-10-17 22:20] LABS: Color, Urine Yellow (Yellow); Glucose, Dipstick 250 mg/dl (Normal); Leukocyte Esterase-Dipstick Negative /ul (Negative); Nitrite-Dipstick Negative (Negative); Occult Blood-Urine Negative /ul (Negative); Protein-Dipstick Negative (Negative); Specific Gravity, Urine 1.015 (1.002-1.030); Urine Bilirubin Dipstick Negative (Negative); Urine Clarity Clear (Clear); Urine Urobilinogen Normal (Normal)
[2021-10-17 22:27] VITALS: BP 137/72; PULSE 79; RESP 16; O2SAT 94
--- NOTE | 2021-10-17 22:29 | ED.RN ---
Computer in patients room not working. Patients name and birthday verified prior to administration of medications.
[2021-10-17 22:45] LABS: Ketone-Dipstick 150 mg/dl (Negative)
--- NOTE | 2021-10-17 22:50 | EDS_ITS ---
HPI History of Present Illness Chief Complaint: Nausea/Vomiting/Diarrhea Informant: patient Onset/Context/Timing Onset: Today Narrative Narrative: Patient presents secondary to nausea, vomiting, diarrhea. She states she did drink a lot of alcohol last night. She been having diarrhea all day today and anytime she tries to drink as vomiting. She denies fever or chills. She does drink fairly regularly but states that she has not had problems with alcohol withdrawal if she does not drink for a day or 2. Her blood sugar the time of my exam is in the 180s. [facility] Medical History Alcohol use Asthma Diabetes Hypothyroid Insulin dependent diabetes mellitus Post-menopausal Smoker Snoring Thyroid disease Type 1 diabetes mellitus Vitamin B 12 deficiency Wears glasses Home Medications ascorbic acid (vitamin C) 1,000 mg tablet,extended release 1,000 mg PO DAILY 06/06/17 [History Last Taken Unknown] aspirin 81 mg tablet,delayed release 81 mg PO QDAY 06/06/17 [History Last Taken 07/11/17] fluticasone 500 mcg-salmeterol 50 mcg/dose blistr powdr for inhalation 1 inh INHALATION DAILY 06/06/17 [History Last Taken 07/13/21 06:15] lansoprazole 30 mg capsule,delayed release 30 mg PO PRN PRN 06/06/17 [History Last Taken Unknown] cyanocobalamin (vitamin B-12) 1,000 mcg PO DAILY 07/15/17 [History Last Taken Unknown] blood sugar diagnostic #450 ea 06/06/20 [Rx Last Taken Unknown] insulin syringe-needle U-100 0.3 mL 31 gauge x 11/09 #20 ea 07/10/20 [Rx Last Taken Unknown] blood sugar diagnostic #450 ea 08/01/20 [Rx Last Taken Unknown] insulin aspart U-100 100 unit/mL subcutaneous solution See Rx Instructions SC QDAY #50 ml 08/12/20 [Rx Last Taken Unknown] cholecalciferol (vitamin D3) 25 mcg (1,000 unit) capsule 25 mcg PO DAILY 08/26/20 [History Last Taken Unknown] blood sugar diagnostic #450 ea 07/17/21 [Rx Last Taken Unknown] hydrochlorothiazide 25 mg PO QDAY 10/17/21 [History Last Taken Unknown] levothyroxine 0.112 mcg PO DAILY 10/17/21 [History Last Taken Unknown] lisinopril 40 mg PO QDAY 10/17/21 [History Last Taken Unknown] lovastatin 40 mg PO BID 10/17/21 [History Last Taken Unknown] Allergy/AdvReac Type Severity Reaction Status Date / Time No Known Allergies Allergy Verified 10/17/21 20:30 Family History Father Malignant tumor of kidney Arthritis Grandfather Colon cancer Surgical History S/P appendectomy S/P colonoscopy S/P hysterectomy S/P oophorectomy Social History Smoking Status: Light Smoker (<10/day) second hand exposure: No alcohol intake: never substance use type: does not use caffeine: Yes what type of physical activity do you participate in: walking frequency: 1-2 times per week seatbelt use: always ROS ROS ED Constitutional Constitutional ED: Reports chills; Denies fever(s) Eyes Eyes: Denies blurry vision or change in vision ENT ENT ED: Denies ear pain or rhinorrhea Cardiovascular Cardiovascular: Denies chest pain Respiratory/Chest Respiratory/Chest: Denies cough or dyspnea Gastrointestinal Gastrointestinal: Reports abdominal pain, diarrhea, nausea and vomiting Genitourinary Genitourinary ED: Denies dysuria Musculoskeletal Musculoskeletal: Denies myalgias Integumentary Denies rash Psychiatric Psychiatric: Reports anxiety Endocrine Endocrinology: Denies polydipsia or polyuria Allergic/Immunologic Allergic/Immunologic ED: Denies urticaria EXAM Physical Exam Const Vital Signs: 10/17/21 20:28 10/17/21 22:27 Temperature 97.9 F Temperature Source Temporal Pulse Rate 109 H 79 Respiratory Rate 16 16 Blood Pressure 161/79 H 137/72 H Blood Pressure Mean 106 93 Pulse Ox 100 94 Oxygen Delivery Method Room Air Room Air Positive well nourished and well developed General Appearance ED: well developed HEENT Reports dry mucous membranes Mouth ED: Yes dry mucous membranes Mouth: dry mucous membranes Eyes PERRL and EOMs intact bilaterally Neck supple Chest Wall inspection of chest normal and palpation of chest normal Resp normal respiratory effort and clear to auscultation bilaterally Cardio Rate: tachycardic GI non-tender Auscultation: hypoactive bowel sounds Palpation: soft Neuro oriented x3 Sensorium / Orientation: alert Psych Mood & Affect: anxious Skin no rashes or lesions noted MDM MDM MDM Narrative Medical decision making narrative: Patient given IV fluids along with Zofran. Lab work and urinalysis ordered. Lab Data Attestation: I reviewed the patient's lab results. Labs: Laboratory Results - last 24 hr 10/17/21 10/17/21 10/17/21 20:50 20:50 20:50 WBC Cancelled Corrected WBC Cancelled RBC Cancelled Hgb Cancelled Hct Cancelled MCV Cancelled MCH Cancelled MCHC Cancelled RDW Std Deviation Cancelled RDW Coeff of Inderjit Cancelled Plt Count Cancelled MPV Cancelled Immature Gran % (Auto) Cancelled Neut % (Auto) Cancelled Lymph % (Auto) Cancelled Moore % (Auto) Cancelled Eos % (Auto) Cancelled Baso % (Auto) Cancelled Absolute Neuts (auto) Cancelled Absolute Lymphs (auto) Cancelled Total Counted Cancelled Neutrophils % (Manual) Cancelled Band Neutrophils % Cancelled Lymphocytes % (Manual) Cancelled Monocytes % (Manual) Cancelled Eosinophils % (Manual) Cancelled Basophils % (Manual) Cancelled Metamyelocytes % Cancelled Myelocytes % Cancelled Promyelocytes % Cancelled Blast Cells % Cancelled Plasma Cell % (Manual) Cancelled Other Cells % Cancelled Nucleated RBC % Cancelled Nucleated RBCs/100 WBC Cancelled Differential Comment Cancelled Diff Path Review Cancelled Hypersegmented Neuts Cancelled Atypical Lymphocytes Cancelled Reactive Lymphocytes Cancelled Smudge Cells Cancelled Toxic Granulation Cancelled Toxic Vacuolation Cancelled Dohle Bodies Cancelled Zully Rods Cancelled Platelet Estimate Cancelled Plt Morphology Comment Cancelled RBC Morphology Cancelled Polychromasia Cancelled Hypochromasia Cancelled Poikilocytosis Cancelled Basophilic Stippling Cancelled Anisocytosis Cancelled Microcytosis Cancelled Macrocytosis Cancelled Spherocytes Cancelled Sickle Cells Cancelled Target Cells Cancelled Tear Drop Cells Cancelled Ovalocytes Cancelled Stomatocytes Cancelled [place] Bodies Cancelled [place] Cells Cancelled Bite Cells Cancelled Crenated Cell Cancelled Acanthocytes (Spur) Cancelled Rouleaux Cancelled Schistocytes Cancelled Sodium 121 L Potassium 4.2 Chloride 85 L Carbon Dioxide 17.0 L Anion Gap 19 H BUN 6 L Creatinine 0.71 Estim Creat Clear Calc 75.49 Est GFR (MDRD) Af Amer 109 Est GFR (MDRD) Non-Af 90 BUN/Creatinine Ratio 8.5 L Glucose 229 H Calcium 8.5 Total Bilirubin 1.00 Direct Bilirubin 0.43 H AST 102 H ALT 51 Alkaline Phosphatase 138 H Total Protein 6.7 Albumin 3.7 Globulin 3.0 Lipase 58 L Urine Color Urine Clarity Urine pH Ur Specific [place] Urine Protein Urine Glucose (UA) Urine Ketones Urine Occult Blood Urine Nitrite Urine Bilirubin Urine Urobilinogen Ur Leukocyte Esterase Urine RBC Urine WBC Ur Squamous Epith Cells Urine Bacteria Urine Mucus Acetone Level MODERATE H 10/17/21 10/17/21 21:25 22:03 WBC 5.4 Corrected WBC RBC 3.17 L Hgb 10.8 L Hct 30.5 L MCV 96.2 MCH 34.1 H MCHC 35.4 RDW Std Deviation 45.1 H RDW Coeff of Inderjit 12.8 Plt Count 202 MPV 10.0 Immature Gran % (Auto) 0.600 Neut % (Auto) 75.0 H Lymph % (Auto) 16.2 L Moore % (Auto) 7.4 Eos % (Auto) 0.2 Baso % (Auto) 0.6 Absolute Neuts (auto) 4.0 Absolute Lymphs (auto) 0.87 Total Counted Neutrophils % (Manual) Band Neutrophils % Lymphocytes % (Manual) Monocytes % (Manual) Eosinophils % (Manual) Basophils % (Manual) Metamyelocytes % Myelocytes % Promyelocytes % Blast Cells % Plasma Cell % (Manual) Other Cells % Nucleated RBC % 0 Nucleated RBCs/100 WBC Differential Comment Diff Path Review Hypersegmented Neuts Atypical Lymphocytes Reactive Lymphocytes Smudge Cells Toxic Granulation Toxic Vacuolation Dohle Bodies Zully Rods Platelet Estimate Plt Morphology Comment RBC Morphology Polychromasia Hypochromasia Poikilocytosis Basophilic Stippling Anisocytosis Microcytosis Macrocytosis Spherocytes Sickle Cells Target Cells Tear Drop Cells Ovalocytes Stomatocytes [place] Bodies Thad Cells Bite Cells Crenated Cell Acanthocytes (Spur) Rouleaux Schistocytes Sodium Potassium Chloride Carbon Dioxide Anion Gap BUN Creatinine Estim Creat Clear Calc Est GFR (MDRD) Af Amer Est GFR (MDRD) Non-Af BUN/Creatinine Ratio Glucose Calcium Total Bilirubin Direct Bilirubin AST ALT Alkaline Phosphatase Total Protein Albumin Globulin Lipase Urine Color Yellow Urine Clarity Clear Urine pH 6.0 Ur Specific [place] 1.015 Urine Protein Negative Urine Glucose (UA) 250 H Urine Ketones 150 A* Urine Occult Blood Negative Urine Nitrite Negative Urine Bilirubin Negative Urine Urobilinogen Normal Ur Leukocyte Esterase Negative Urine RBC 0 SEEN Urine WBC 0 SEEN Ur Squamous Epith Cells 0 SEEN Urine Bacteria 0 SEEN Urine Mucus 0 SEEN Acetone Level Treatment and Re-Evaluation Narrative: On repeat evaluation patient is feeling improved. CBC is largely unremarkable. Chemistry studies reveal a sodium of 121, bicarb 17, anion gap 19, glucose 229. Patient does have moderate serum acetone noted. Patient will be given 2 L normal saline. That point we will start insulin drip along with D5 normal saline as her blood sugar is only 229. I will speak with hospitalist regarding admission. Discharge Plan Dx/Rx/DC Orders Clinical Impression: DKA (diabetic ketoacidosis) Disposition Disposition: Acute Care Hospital [facility] Discharge Date/Time: 10/17/21 23:34
--- NOTE | 2021-10-17 23:06 | HP.PCM.HOS_ITS ---
HPI - General General Date of Admission: 10/17/21 HPI Narrative KADIE PRADHAN, is a 56 F who presents to the hospital with nausea, vomiting and diarrhea. She is a type I diabetic and was drinking a lot of alcohol last night. Today she has been having a significant amount of diarrhea though she has not been around anyone sick contacts. Denies any fevers or abdominal pain. In ER she was found to have a blood sugar of 229. She has a sodium of 121 with chloride of 85, CO2 of 17 with an anion gap of 19. UA with 150 ketones as well as moderate acetone level. [facility] Medical History Alcohol use Asthma Diabetes Hypothyroid Insulin dependent diabetes mellitus Post-menopausal Smoker Snoring Thyroid disease Type 1 diabetes mellitus Vitamin B 12 deficiency Wears glasses Home Medications ascorbic acid (vitamin C) 1,000 mg tablet,extended release 1,000 mg PO DAILY 06/06/17 [History Last Taken Unknown] aspirin 81 mg tablet,delayed release 81 mg PO QDAY 06/06/17 [History Last Taken 07/11/17] fluticasone 500 mcg-salmeterol 50 mcg/dose blistr powdr for inhalation 1 inh INHALATION DAILY 06/06/17 [History Last Taken 07/13/21 06:15] lansoprazole 30 mg capsule,delayed release 30 mg PO PRN PRN 06/06/17 [History Last Taken Unknown] cyanocobalamin (vitamin B-12) 1,000 mcg PO DAILY 07/15/17 [History Last Taken Unknown] blood sugar diagnostic #450 ea 06/06/20 [Rx Last Taken Unknown] insulin syringe-needle U-100 0.3 mL 31 gauge x 11/09 #20 ea 07/10/20 [Rx Last Taken Unknown] blood sugar diagnostic #450 ea 08/01/20 [Rx Last Taken Unknown] insulin aspart U-100 100 unit/mL subcutaneous solution See Rx Instructions SC QDAY #50 ml 08/12/20 [Rx Last Taken Unknown] cholecalciferol (vitamin D3) 25 mcg (1,000 unit) capsule 25 mcg PO DAILY 08/26/20 [History Last Taken Unknown] blood sugar diagnostic #450 ea 07/17/21 [Rx Last Taken Unknown] hydrochlorothiazide 25 mg PO QDAY 10/17/21 [History Last Taken Unknown] levothyroxine 0.112 mcg PO DAILY 10/17/21 [History Last Taken Unknown] lisinopril 40 mg PO QDAY 10/17/21 [History Last Taken Unknown] lovastatin 40 mg PO BID 10/17/21 [History Last Taken Unknown] Allergy/AdvReac Type Severity Reaction Status Date / Time No Known Allergies Allergy Verified 10/17/21 20:30 Family History Father Malignant tumor of kidney Arthritis Grandfather Colon cancer Surgical History S/P appendectomy S/P colonoscopy S/P hysterectomy S/P oophorectomy Social History Smoking Status: Light Smoker (<10/day) second hand exposure: No alcohol intake: never substance use type: does not use caffeine: Yes what type of physical activity do you participate in: walking frequency: 1-2 times per week seatbelt use: always ROS Constitutional Constitutional: Reports chills; Denies fatigue, fever(s) or malaise Eyes Eyes: Denies blurry vision ENT HEENT: Denies headache(s) or nasal discharge Cardiovascular Cardiovascular: Denies chest pain, dyspnea on exertion or syncope Respiratory/Chest Respiratory/Chest: Denies cough, shortness of breath at rest or shortness of breath with exertion Gastrointestinal Gastrointestinal: Reports diarrhea, nausea and vomiting; Denies constipation Genitourinary Genitourinary: Denies dysuria Neurologic Neurologic: Denies focal weakness, numbness or tremor(s) Psychiatric Psychiatric: Reports anxiety; Denies depression Vital Signs Vital Signs Vital Signs: 10/17/21 20:28 10/17/21 22:27 Temperature 97.9 F Temperature Source Temporal Pulse Rate 109 H 79 Respiratory Rate 16 16 Blood Pressure 161/79 H 137/72 H Blood Pressure Mean 106 93 Pulse Ox 100 94 Oxygen Delivery Method Room Air Room Air Weight Weight: 150 lb Body Mass Index (BMI) 25.7 Physical Exam Const alert, oriented x3 and no apparent distress General Appearance: cooperative HEENT normocephalic Mouth: dry mucous membranes Eyes PERRL, EOMs intact bilaterally and conjunctivae normal Neck supple and no JVD Resp normal respiratory effort, no retractions, no use of accessory muscles and clear to auscultation bilaterally Auscultation: Negative for crackles, rales, rhonchi or wheezes Cardio regular rate, regular rhythm, S1 normal heart sound, S2 normal heart sound and no murmurs GI soft to palpation, non-tender and non-distended; Negative for hepatosplenomegaly Extremity no clubbing, cyanosis or edema Skin no rashes or lesions noted Neuro no focal motor deficits and no sensory deficits noted Psych affect normal Appearance: appropriate Results Lab / Micro Data Result Diagrams: 10/17/21 21:25 10/17/21 20:50 Labs: Laboratory Results - last 24 hr 10/17/21 20:50: WBC Cancelled, Corrected WBC Cancelled, RBC Cancelled, Hgb Cancelled, Hct Cancelled, MCV Cancelled, MCH Cancelled, MCHC Cancelled, RDW Std Deviation Cancelled, RDW Coeff of Inderjit Cancelled, Plt Count Cancelled, MPV Cancelled, Immature Gran % (Auto) Cancelled, Neut % (Auto) Cancelled, Lymph % (Auto) Cancelled, [place] % (Auto) Cancelled, Eos % (Auto) Cancelled, Baso % (Auto) Cancelled, Absolute Neuts (auto) Cancelled, Absolute Lymphs (auto) Cancelled, Total Counted Cancelled, Neutrophils % (Manual) Cancelled, Band Neutrophils % Cancelled, Lymphocytes % (Manual) Cancelled, Monocytes % (Manual) Cancelled, Eosinophils % (Manual) Cancelled, Basophils % (Manual) Cancelled, Metamyelocytes % Cancelled, Myelocytes % Cancelled, Promyelocytes % Cancelled, Blast Cells % Cancelled, Plasma Cell % (Manual) Cancelled, Other Cells % Cancelled, Nucleated RBC % Cancelled, Nucleated RBCs/100 WBC Cancelled, Differential Comment Cancelled, Diff Path Review Cancelled, Hypersegmented Neuts Cancelled, Atypical Lymphocytes Cancelled, Reactive Lymphocytes Cancelled, Smudge Cells Cancelled, Toxic Granulation Cancelled, Toxic Vacuolation Cancelled, Dohle Bodies Cancelled, Zully Rods Cancelled, Platelet Estimate Cancelled, Plt Morphology Comment Cancelled, RBC Morphology Cancelled, Polychromasia Cancelled, Hypochromasia Cancelled, Poikilocytosis Cancelled, Basophilic Stippling Cancelled, Anisocytosis Cancelled, Microcytosis Cancelled, Macrocytosis Cancelled, Spherocytes Cancelled, Sickle Cells Cancelled, Target Cells Cancelled, Tear Drop Cells Cancelled, Ovalocytes Cancelled, Stomatocytes Cancelled, [place] Bodies Cancelled, [place] Cells Cancelled, Bite Cells Cancelled, Crenated Cell Cancelled, Acanthocytes (Spur) Cancelled, Rouleaux Cancelled, Schistocytes Cancelled 10/17/21 20:50: Sodium 121 L, Potassium 4.2, Chloride 85 L, Carbon Dioxide 17.0 L, Anion Gap 19 H, BUN 6 L, Creatinine 0.71, Estim Creat Clear Calc 75.49, Est GFR (MDRD) Af Amer 109, Est GFR (MDRD) Non-Af 90, BUN/Creatinine Ratio 8.5 L, Glucose 229 H, Calcium 8.5, Total Bilirubin 1.00, Direct Bilirubin 0.43 H, AST 102 H, ALT 51, Alkaline Phosphatase 138 H, Total Protein 6.7, Albumin 3.7, Globulin 3.0, Lipase 58 L 10/17/21 20:50: Acetone Level MODERATE H 10/17/21 21:25: WBC 5.4, RBC 3.17 L, Hgb 10.8 L, Hct 30.5 L, MCV 96.2, MCH 34.1 H, MCHC 35.4, RDW Std Deviation 45.1 H, RDW Coeff of Inderjit 12.8, Plt Count 202, MPV 10.0, Immature Gran % (Auto) 0.600, Neut % (Auto) 75.0 H, Lymph % (Auto) 16.2 L, [place] % (Auto) 7.4, Eos % (Auto) 0.2, Baso % (Auto) 0.6, Absolute Neuts (auto) 4.0, Absolute Lymphs (auto) 0.87, Nucleated RBC % 0 10/17/21 22:03: Urine Color Yellow, Urine Clarity Clear, Urine pH 6.0, Ur Specific [place] 1.015, Urine Protein Negative, Urine Glucose (UA) 250 H, Urine Ketones 150 A*, Urine Occult Blood Negative, Urine Nitrite Negative, Urine Bilirubin Negative, Urine Urobilinogen Normal, Ur Leukocyte Esterase Negative, Urine RBC 0 SEEN, Urine WBC 0 SEEN, Ur Squamous Epith Cells 0 SEEN, Urine Bacteria 0 SEEN, Urine Mucus 0 SEEN Assessment & Plan Assessment/Plan (1) DKA (diabetic ketoacidosis): (2) Alcohol abuse: PLAN: 1. DKA after binge drinking with nausea, vomiting, diarrhea/alcohol abuse/DM 1 ? She states that she has been alcoholic for about 10 years, she does not want to go through detox however is willing to talk to 180 ? Her blood sugars are 229, will continue with aggressive fluid resuscitation ? We will turn off her insulin pump and place her on long-acting insulin as well as sliding scale insulin and make her n.p.o. at this time ? We will start her on some Zoloft 2. HTN/HLD ? Blood pressure stable ? Continue with lisinopril and hydrochlorothiazide ? Continue with statin 3. Hypothyroidism ? Stable ? Continue with Synthroid 4. GERD ? Stable ? Continue with PPI Charges/Coding Visit Charges Inpatient E&M: 02441 Init Hosp L3
[2021-10-17] MEDS: 0.9% Normal Saline 1,000 ML 999 ML IV (23:11)
--- NOTE | 2021-10-17 23:13 | ED.RN ---
Face to face report given to MIRYAM Snyder ICU
--- NOTE | 2021-10-17 23:14 | ED.RN ---
Per Dr. Abrams, Dr. Deal would like for patients insulin pump to be turned off and receive her second liter of NS before hanging insulin and dextrose drip. Labs will be redrawn after second liter is done in ICU. Message given to MIRYAM Snyder during report.
[2021-10-17 23:26] VITALS: BP 125/67; PULSE 94; RESP 17; TEMP 36.4; O2SAT 96
[2021-10-17 23:56] VITALS: BP 136/70; PULSE 102; RESP 22; TEMP 36.6; O2SAT 99; BMI 27.8
[2021-10-18] VITALS (19 sets, daily range): BP systolic 95–137; BP diastolic 56–109; PULSE 74–106; RESP 16–20; TEMP 36.5–37.1; O2SAT 96–100
[2021-10-18 01:15] LABS: Anion Gap 15 (5-15); BUN 5 mg/dL (7-18); Calcium,Total 7.8 mg/dL (8.5-10.1); Chloride 96 mmol/L (98-107); EST Glomerular Filtration Rate 135 mL/min (>60); Est Glom Filt Rate - Afr Amer 163 mL/min (>60); Glucose 216 mg/dL (74-106); Potassium 3.9 mmol/L (3.5-5.1); Sodium Level 128 mmol/L (136-145)
[2021-10-18] MEDS: 0.9% Normal Saline 1,000 ML 250 ML IV ×2 (02:20→06:19)
[2021-10-18] MEDS: Insulin Lispro 100 UNIT/ML INSULN.PEN SC (02:21)
[2021-10-18 03:58] LABS: Absolute Lymphocyte Count 1.52 X10^3/uL (0.83-4.51); Absolute Neutrophil Count 3.3 X10^3/uL (2.0-7.7); Basophil# 0.03 X10^3/uL; Basophil% 0.6 % (0-1); Eosinophil# 0.03 X10^3/uL; Eosinophils% 0.6 % (0-5); Hematocrit 31.5 % (37-47); Hemoglobin 11.1 g/dL (12.0-15.0); Lymphocyte # 1.52 X10^3/ul (0.83-4.51); Lymphocyte % 28.9 % (19-41); Mean Corp Hgb Conc 35.2 g/dL (32-36); Mean Corpuscular Hgb 33.5 pg (27.0-32.0); Mean Corpuscular Volume 95.2 fL (81-99); Mean Platelet Vol. 9.9 fl (6.2-12.0); Monocyte# 0.38 X10^3/uL; Monocyte% 7.2 % (0-10); NRBC Flagged by Analyzer 0 % (0-5); Neutrophil # 3.28 X10^3/uL (2.7-7.7); Neutrophil % 62.3 % (47-70); Platelet Count 208 K/mm3 (150-450); RBC Distribution Width CV 12.8 % (11.6-14.6); RBC Distribution Width SD 44.3 fl (35.1-43.9); Red Blood Count 3.31 M/mm3 (4.2-5.4); White Blood Count 5.3 K/mm3 (4.4-11.0)
[2021-10-18 04:10] LABS: Anion Gap 12 (5-15); BUN 5 mg/dL (7-18); BUN/Creat Ratio 8.9 RATIO (10-20); Calcium,Total 7.4 mg/dL (8.5-10.1); Chloride 101 mmol/L (98-107); Creatinine, Serum 0.56 mg/dL (0.55-1.02); EST Glomerular Filtration Rate 117 mL/min (>60); Est Glom Filt Rate - Afr Amer 142 mL/min (>60); Estimated Creatinine Clearance 95.71 ml/min; Glucose 195 mg/dL (74-106); Sodium Level 131 mmol/L (136-145)
[2021-10-18 04:56] LABS: Bedside Glucose 260 mg/dL (74-106)
[2021-10-18 04:56] LABS: Bedside Glucose 203 mg/dL (74-106)
[2021-10-18] MEDS: Levothyroxine 112 MCG Tablet PO (05:21)
[2021-10-18 05:31] LABS: Bedside Glucose 136 mg/dL (74-106)
[2021-10-18] MEDS: Potassium Chloride 10mEq/100mL 10 MEQ/100 ML IV.SOLN. 100 MEQ IV BOLUS ×4 (05:45→13:47)
--- NOTE | 2021-10-18 09:13 | PN.HOSP_ITS ---
Subjective Subjective Patient seen and examined. She has no complaints today and feels much better. Her anion gap has closed and she never actually required insulin drip. Review of systems is otherwise negative. SHe has remained hemodynamically stable. Objective Data Objective Data Vital Signs: Vital Signs Temp Pulse Resp BP Pulse Ox 97.7 F L 99 17 123/68 H 98 10/18/21 08:00 10/18/21 08:00 10/18/21 08:00 10/18/21 08:00 10/18/21 08:00 Oxygen Delivery Method Room Air Weight: 161 lb 13.109 oz Body Mass Index (BMI) 27.8 Intake & Output: Intake and Output for Last 24 Hours 10/16/21 10/17/21 10/18/21 23:59 23:59 23:59 Intake Total 1000 / 1000 2529.16 / 2529.16 Output Total 4 / 4 Balance 1000 / 1000 2525.16 / 2525.16 Lab / Micro Data Result Diagrams: 10/18/21 03:50 10/18/21 03:50 Labs: Laboratory Results - last 24 hr 10/17/21 20:50: WBC Cancelled, Corrected WBC Cancelled, RBC Cancelled, Hgb Cancelled, Hct Cancelled, MCV Cancelled, MCH Cancelled, MCHC Cancelled, RDW Std Deviation Cancelled, RDW Coeff of Inderjit Cancelled, Plt Count Cancelled, MPV Cancelled, Immature Gran % (Auto) Cancelled, Neut % (Auto) Cancelled, Lymph % (Auto) Cancelled, [place]mullen % (Auto) Cancelled, Eos % (Auto) Cancelled, Baso % (Auto) Cancelled, Absolute Neuts (auto) Cancelled, Absolute Lymphs (auto) Cancelled, Total Counted Cancelled, Neutrophils % (Manual) Cancelled, Band Neutrophils % Cancelled, Lymphocytes % (Manual) Cancelled, Monocytes % (Manual) Cancelled, E osinophils % (Manual) Cancelled, Basophils % (Manual) Cancelled, Metamyelocytes % Cancelled, Myelocytes % Cancelled, Promyelocytes % Cancelled, Blast Cells % Cancelled, Plasma Cell % (Manual) Cancelled, Other Cells % Cancelled, Nucleated RBC % Cancelled, Nucleated RBCs/100 WBC Cancelled, Differential Comment Cancelled, Diff Path Review Cancelled, Hypersegmented Neuts Cancelled, Atypical Lymphocytes Cancelled, Reactive Lymphocytes Cancelled, Smudge Cells Cancelled, Toxic Granulation Cancelled, Toxic Vacuolation Cancelled, Dohle Bodies Cancelled, Zully Rods Cancelled, Platelet Estimate Cancelled, Plt Morphology Comment Cancelled, RBC Morphology Cancelled, Polychromasia Cancelled, Hypochromasia Cancelled, Poikilocytosis Cancelled, Basophilic Stippling Cancelled, Anisocytosis Cancelled, Microcytosis Cancelled, Macrocytosis Cancelled, Spherocytes Cancelled, Sickle Cells Cancelled, Target Cells Cancelled, Tear Drop Cells Cancelled, Ovalocytes Cancelled, Stomatocytes Cancelled, [place] Bodies Cancelled, [place] Cells Cancelled, Bite Cells Cancelled, Crenated Cell Cancelled, Acanthocytes (Spur) Cancelled, Rouleaux Cancelled, Schistocytes Cancelled 10/17/21 20:50: Sodium 121 L, Potassium 4.2, Chloride 85 L, Carbon Dioxide 17.0 L, Anion Gap 19 H, BUN 6 L, Creatinine 0.71, Estim Creat Clear Calc 75.49, Est GFR (MDRD) Af Amer 109, Est GFR (MDRD) Non-Af 90, BUN/Creatinine Ratio 8.5 L, Glucose 229 H, Calcium 8.5, Total Bilirubin 1.00, Direct Bilirubin 0.43 H, AST 102 H, ALT 51, Alkaline Phosphatase 138 H, Total Protein 6.7, Albumin 3.7, Globulin 3.0, Lipase 58 L 10/17/21 20:50: Acetone Level MODERATE H 10/17/21 21:25: WBC 5.4, RBC 3.17 L, Hgb 10.8 L, Hct 30.5 L, MCV 96.2, MCH 34.1 H, MCHC 35.4, RDW Std Deviation 45.1 H, RDW Coeff of Inderjit 12.8, Plt Count 202, MPV 10.0, Immature Gran % (Auto) 0.600, Neut % (Auto) 75.0 H, Lymph % (Auto) 16.2 L, Mcmullen % (Auto) 7.4, Eos % (Auto) 0.2, Baso % (Auto) 0.6, Absolute Neuts (auto) 4.0, Absolute Lymphs (auto) 0.87, Nucleated RBC % 0 10/17/21 22:03: Urine Color Yellow, Urine Clarity Clear, Urine pH 6.0, Ur Specific [place] 1.015, Urine Protein Negative, Urine Glucose (UA) 250 H, Urine Ketones 150 A*, Urine Occult Blood Negative, Urine Nitrite Negative, Urine Bilirubin Negative, Urine Urobilinogen Normal, Ur Leukocyte Esterase Negative, Urine RBC 0 SEEN, Urine WBC 0 SEEN, Ur Squamous Epith Cells 0 SEEN, Urine Bacteria 0 SEEN, Urine Mucus 0 SEEN 10/17/21 23:53: POC Glucose 203 H 10/18/21 00:12: Sodium Cancelled, Potassium Cancelled, Chloride Cancelled, Carbon Dioxide Cancelled, Anion Gap Cancelled, BUN Cancelled, Creatinine Cancelled, Estim Creat Clear Calc Cancelled, Est GFR (MDRD) Af Amer Cancelled, Est GFR (MDRD) Non-Af Cancelled, BUN/Creatinine Ratio Cancelled, Glucose Cancelled, Calcium Cancelled 10/18/21 00:40: Sodium 128 L, Potassium 3.9, Chloride 96 L, Carbon Dioxide 17.0 L, Anion Gap 15, BUN 5 L, Creatinine 0.50 L, Estim Creat Clear Calc 107.20, Est GFR (MDRD) Af Amer 163, Est GFR (MDRD) Non-Af 135, BUN/Creatinine Ratio 10.0, Glucose 216 H, Calcium 7.8 L 10/18/21 02:08: POC Glucose 260 H 10/18/21 03:50: Sodium 131 L, Potassium 4.0, Chloride 101, Carbon Dioxide 18.0 L , Anion Gap 12, BUN 5 L, Creatinine 0.56, Estim Creat Clear Calc 95.71, Est GFR (MDRD) Af Amer 142, Est GFR (MDRD) Non-Af 117, BUN/Creatinine Ratio 8.9 L, Glucose 195 H, Calcium 7.4 L 10/18/21 03:50: WBC 5.3, RBC 3.31 L, Hgb 11.1 L, Hct 31.5 L, MCV 95.2, MCH 33.5 H, MCHC 35.2, RDW Std Deviation 44.3 H, RDW Coeff of Inderjit 12.8, Plt Count 208, MPV 9.9, Immature Gran % (Auto) 0.400, Neut % (Auto) 62.3, Lymph % (Auto) 28.9, [place] % (Auto) 7.2, Eos % (Auto) 0.6, Baso % (Auto) 0.6, Absolute Neuts (auto) 3.3, Absolute Lymphs (auto) 1.52, Nucleated RBC % 0 10/18/21 05:18: POC Glucose 136 H Physical Exam Const alert, oriented x3 and no apparent distress Exam Limitations: no limitations HEENT head/scalp atraumatic and moist oral mucous membranes Head and Scalp: normocephalic Eyes PERRL, EOMs intact bilaterally and conjunctivae normal Neck no lymphadenopathy and supple Resp normal respiratory effort, no retractions, no use of accessory muscles and clear to auscultation bilaterally Cardio regular rate, regular rhythm, S1 normal heart sound, S2 normal heart sound and no murmurs GI normal to inspection, nondistended, normoactive bowel sounds, soft to palpation, non-tender and non-distended Extremity normal to inspection, full ROM and no clubbing, cyanosis or edema Peripheral Pulses: Yes pulses 2+ throughout Skin no rashes or lesions noted Neuro oriented x3, CN's II-XII intact bilaterally and moves all extremities Sensorium / Orientation: awake and alert Psych affect normal Assessment & Plan Assessment/Plan (1) DKA (diabetic ketoacidosis): (2) Alcohol abuse: PLAN: #DKA in a known type 1 diabetes mellitus. * Resolved. On gap is closed. Patient admits to drinking heavily on the day of presentation and so alcoholic ketosis could also have played a role. * Did not require any insulin drip. * Will start patient on her 1800-calorie diet. Resume insulin pump usage. * Accu-Cheks ACH S. * #History of alcohol abuse * Says she was drinking heavily on the night of presentation. She says she has been through rehab and AA but usually relapses and stops going. * Is in active withdrawal now. To follow-up with [facility] * #Hypothyroidism: On Synthroid #Hypertension: On lisinopril and hydrochlorothiazide #Hyperlipidemia: On statin #GERD: On PPI DVT prophylaxis: Lovenox Disposition: Transfer to medical floor. Likely discharge tomorrow. Charges/Coding Visit Charges Inpatient E&M: 47538 Subs Hosp L2
[2021-10-18] MEDS: Enoxaparin 40 MG/0.4 ML Syringe SC (09:58)
[2021-10-18] MEDS: Aspirin E.C. 81 MG Tablet PO (09:58)
[2021-10-18] MEDS: hydroCHLOROthiazide 25 MG Tablet PO (09:58)
[2021-10-18] MEDS: Lisinopril 40 MG Tablet PO (09:59)
[2021-10-18] MEDS: Sertraline 50 MG Tablet PO (09:59)
--- NOTE | 2021-10-18 15:40 | PCM.DC ---
Discharge Instructions Diet Discharge Diet: Carb Control Diet Activity Discharge Activity: Return to Normal Activity Dressing / Incision Call your doctor if you observe: Shortness of breath, Dizziness and Chest pain Follow Up Care Test Results: Test results from this visit will be discussed in further detail at your follow-up appointment, if applicable. Discharge Plan Admission Admit Date/Time: 10/17/21 23:00 Primary Reason for Your Visit: DKA Attending Provider: Daina Saucedo Primary Care Provider: William Rodriguez Discharge Orders/Prescriptions Prescriptions: New sertraline 50 mg Tablet 50 mg PO DAILY Qty: 30 RF: 0 Continued ascorbic acid (vitamin C) 1,000 mg tablet extended release 1,000 mg PO DAILY RF: 0 aspirin [Aspirin Low Dose] 81 mg tablet,delayed release (DR/EC) 81 mg PO QDAY RF: 0 lansoprazole [Prevacid] 30 mg capsule,delayed release(DR/EC) 30 mg PO PRN PRN (Reason: GERD) RF: 0 fluticasone propion-salmeterol [Advair Diskus] 500-50 mcg/dose blister with device 1 inh INHALATION DAILY RF: 0 cholecalciferol (vitamin D3) 25 mcg (1,000 unit) capsule 25 mcg PO DAILY RF: 0 cyanocobalamin (vitamin B-12) 1,000 MCG capsule 1,000 mcg PO DAILY RF: 0 lovastatin 40 mg Tablet 40 mg PO BID RF: 0 levothyroxine 88 mcg tablet 0.112 mcg PO DAILY RF: 0 hydrochlorothiazide 25 mg tablet 25 mg PO QDAY RF: 0 lisinopril 40 mg tablet 40 mg PO QDAY RF: 0 (DME) Contour Next Test Strips Strip See Rx Instructions .ROUTE .MEDSUPPLY Qty: 450 RF: 3 (DME) insulin syringe-needle U-100 [BD Insulin Syringe Ultra-Fine] 0.3 mL 31 gauge x 5/16 syringe See Rx Instructions .ROUTE .MEDSUPPLY Qty: 20 RF: 5 (DME) Accu-Chek Guide test strips Strip See Rx Instructions .ROUTE .MEDSUPPLY Qty: 450 RF: 3 Novolog U-100 Insulin aspart 100 unit/mL solution See Rx Instructions SC QDAY Qty: 50 RF: 11 (DME) Accu-Chek Guide test strips Strip See Rx Instructions .ROUTE .MEDSUPPLY Qty: 450 RF: 3 Referrals / Follow Up: William Rodriguez MD [Primary Care Provider] - In 1 Week Disposition Disposition (needs filled in before D/C Order can be placed): Home, Self Care
--- NOTE | 2021-10-18 15:49 | PCM.DC.SUM ---
Documented by User: Peace Beal NP, METAL WASHING MACHINE OPERATOR-C 10/18/21 15:55 Providers Date of Admission: 10/17/21 Date of Discharge: 10/18/21 Primary Care Physician: Dr. William Rodriguez MD Reason For Visit: DKA Diagnosis Discharge Diagnosis (1) DKA (diabetic ketoacidosis): Status: Resolved Code(s): E11.10 - Type 2 diabetes mellitus with ketoacidosis without coma (2) Alcohol abuse: Code(s): F10.10 - Alcohol abuse, uncomplicated Medications at Discharge Home Medications ascorbic acid (vitamin C) 1,000 mg tablet,extended release 1,000 mg PO DAILY 06/06/17 aspirin 81 mg tablet,delayed release 81 mg PO QDAY 06/06/17 fluticasone 500 mcg-salmeterol 50 mcg/dose blistr powdr for inhalation 1 inh INHALATION DAILY 06/06/17 lansoprazole 30 mg capsule,delayed release 30 mg PO PRN PRN 06/06/17 cyanocobalamin (vitamin B-12) 1,000 mcg PO DAILY 07/15/17 blood sugar diagnostic #450 ea 06/06/20 insulin syringe-needle U-100 0.3 mL 31 gauge x 11/09 #20 ea 07/10/20 blood sugar diagnostic #450 ea 08/01/20 insulin aspart U-100 100 unit/mL subcutaneous solution See Rx Instructions SC QDAY #50 ml 08/12/20 cholecalciferol (vitamin D3) 25 mcg (1,000 unit) capsule 25 mcg PO DAILY 08/26/20 blood sugar diagnostic #450 ea 07/17/21 hydrochlorothiazide 25 mg PO QDAY 10/17/21 levothyroxine 0.112 mcg PO DAILY 10/17/21 lisinopril 40 mg PO QDAY 10/17/21 lovastatin 40 mg PO BID 10/17/21 sertraline 50 mg PO DAILY #30 tab 10/18/21 Hospital Course Operations None Procedures None Summary of Care Provided Hospital Course: Patient is a 56-year-old female admitted 10/17/2021 due to nausea, vomiting, diarrhea. 1. DKA in the setting of type 1 diabetes mellitus-DKA resolved. Patient drinking alcohol heavily on day of presentation, alcoholic ketosis likely contributing. Patient did not require insulin drip. Patient received aggressive fluid resuscitation. She was resumed on home insulin pump. Glucose stable. Follow-up with PCP in 1 week. 2. Alcohol abuse, chronic-declined detox program. Outpatient follow-up with addiction medicine. 3. Hypertension/hyperlipidemia-continue lisinopril, HCTZ, statin. 4. Hypothyroidism-continue Synthroid. 5. GERD-continue PPI. Patient seen and examined prior to discharge. Physical assessment as noted below. Patient is stable for discharge with follow up recommendations as noted above. This patient was seen by GREER Pace under the supervision of Dr. Saucedo. Time spent examining patient, reviewing data and subsequent management of care: 16 minutes Physical Exam Const alert, oriented x3 and no apparent distress Orientation / Consciousness: awake, oriented to person, oriented to place and oriented to time HEENT normocephalic and moist oral mucous membranes Eyes PERRL, EOMs intact bilaterally and conjunctivae normal Neck no lymphadenopathy Resp normal respiratory effort and clear to auscultation bilaterally Cardio regular rate, regular rhythm and no murmurs Peripheral Pulses: pulses 2+ throughout GI normal to inspection, nondistended, normoactive bowel sounds, non-tender and non-distended Extremity normal to inspection Skin no rashes or lesions noted Lesions: no lesions Rashes: no rashes Trauma: no lacerations or abrasions Neuro CN's II-XII intact bilaterally, no focal motor deficits, no sensory deficits noted and deep tendon reflexes 2+ bilaterally Psych mental status grossly normal and affect normal Weight / BMI Weight Weight: 161 lb 13.109 oz Body Mass Index (BMI) 27.8 ABG / Lab / Microbiology Data Result Diagrams: 10/18/21 03:50 10/18/21 03:50 Laboratory: Laboratory Results - last 24 hr 10/17/21 20:50: WBC Cancelled, Corrected WBC Cancelled, RBC Cancelled, Hgb Cancelled, Hct Cancelled, MCV Cancelled, MCH Cancelled, MCHC Cancelled, RDW Std Deviation Cancelled, RDW Coeff of Inderjit Cancelled, Plt Count Cancelled, MPV Cancelled, Immature Gran % (Auto) Cancelled, Neut % (Auto) Cancelled, Lymph % (Auto) Cancelled, Green % (Auto) Cancelled, Eos % (Auto) Cancelled, Baso % (Auto) Cancelled, Absolute Neuts (auto) Cancelled, Absolute Lymphs (auto) Cancelled, Total Counted Cancelled, Neutrophils % (Manual) Cancelled, Band Neutrophils % Cancelled, Lymphocytes % (Manual) Cancelled, Monocytes % (Manual) Cancelled, Eosinophils % (Manual) Cancelled, Basophils % (Manual) Cancelled, Metamyelocytes % Cancelled, Myelocytes % Cancelled, Promyelocytes % Cancelled, Blast Cells % Cancelled, Plasma Cell % (Manual) Cancelled, Other Cells % Cancelled, Nucleated RBC % Cancelled, Nucleated RBCs/100 WBC Cancelled, Differential Comment Cancelled, Diff Path Review Cancelled, Hypersegmented Neuts Cancelled, Atypical Lymphocytes Cancelled, Reactive Lymphocytes Cancelled, Smudge Cells Cancelled, Toxic Granulation Cancelled, Toxic Vacuolation Cancelled, Dohle Bodies Cancelled, Zully Rods Cancelled, Platelet Estimate Cancelled, Plt Morphology Comment Cancelled, RBC Morphology Cancelled, Polychromasia Cancelled, Hypochromasia Cancelled, Poikilocytosis Cancelled, Basophilic Stippling Cancelled, Anisocytosis Cancelled, Microcytosis Cancelled, Macrocytosis Cancelled, Spherocytes Cancelled, Sickle Cells Cancelled, Target Cells Cancelled, Tear Drop Cells Cancelled, Ovalocytes Cancelled, Stomatocytes Cancelled, [place] Bodies Cancelled, [place] Cells Cancelled, Bite Cells Cancelled, Crenated Cell Cancelled, Acanthocytes (Spur) Cancelled, Rouleaux Cancelled, Schistocytes Cancelled 10/17/21 20:50: Sodium 121 L, Potassium 4.2, Chloride 85 L, Carbon Dioxide 17.0 L, Anion Gap 19 H, BUN 6 L, Creatinine 0.71, Estim Creat Clear Calc 75.49, Est GFR (MDRD) Af Amer 109, Est GFR (MDRD) Non-Af 90, BUN/Creatinine Ratio 8.5 L, Glucose 229 H, Calcium 8.5, Total Bilirubin 1.00, Direct Bilirubin 0.43 H, AST 102 H, ALT 51, Alkaline Phosphatase 138 H, Total Protein 6.7, Albumin 3.7, Globulin 3.0, Lipase 58 L 10/17/21 20:50: Acetone Level MODERATE H 10/17/21 21:25: WBC 5.4, RBC 3.17 L, Hgb 10.8 L, Hct 30.5 L, MCV 96.2, MCH 34.1 H, MCHC 35.4, RDW Std Deviation 45.1 H, RDW Coeff of Inderjit 12.8, Plt Count 202, MPV 10.0, Immature Gran % (Auto) 0.600, Neut % (Auto) 75.0 H, Lymph % (Auto) 16.2 L, Green % (Auto) 7.4, Eos % (Auto) 0.2, Baso % (Auto) 0.6, Absolute Neuts (auto) 4.0, Absolute Lymphs (auto) 0.87, Nucleated RBC % 0 10/17/21 22:03: Urine Color Yellow, Urine Clarity Clear, Urine pH 6.0, Ur Specific [place] 1.015, Urine Protein Negative, Urine Glucose (UA) 250 H, Urine Ketones 150 A*, Urine Occult Blood Negative, Urine Nitrite Negative, Urine Bilirubin Negative, Urine Urobilinogen Normal, Ur Leukocyte Esterase Negative, Urine RBC 0 SEEN, Urine WBC 0 SEEN, Ur Squamous Epith Cells 0 SEEN, Urine Bacteria 0 SEEN, Urine Mucus 0 SEEN 10/17/21 23:53: POC Glucose 203 H 10/18/21 00:12: Sodium Cancelled, Potassium Cancelled, Chloride Cancelled, Carbon Dioxide Cancelled, Anion Gap Cancelled, BUN Cancelled, Creatinine Cancelled, Estim Creat Clear Calc Cancelled, Est GFR (MDRD) Af Amer Cancelled, Est GFR (MDRD) Non-Af Cancelled, BUN/Creatinine Ratio Cancelled, Glucose Cancelled, Calcium Cancelled 10/18/21 00:40: Sodium 128 L, Potassium 3.9, Chloride 96 L, Carbon Dioxide 17.0 L, Anion Gap 15, BUN 5 L, Creatinine 0.50 L, Estim Creat Clear Calc 107.20, Est GFR (MDRD) Af Amer 163, Est GFR (MDRD) Non-Af 135, BUN/Creatinine Ratio 10.0, Glucose 216 H, Calcium 7.8 L 10/18/21 02:08: POC Glucose 260 H 10/18/21 03:50: Sodium 131 L, Potassium 4.0, Chloride 101, Carbon Dioxide 18.0 L, Anion Gap 12, BUN 5 L, Creatinine 0.56, Estim Creat Clear Calc 95.71, Est GFR (MDRD) Af Amer 142, Est GFR (MDRD) Non-Af 117, BUN/Creatinine Ratio 8.9 L, Glucose 195 H, Calcium 7.4 L 10/18/21 03:50: WBC 5.3, RBC 3.31 L, Hgb 11.1 L, Hct 31.5 L, MCV 95.2, MCH 33.5 H, MCHC 35.2, RDW Std Deviation 44.3 H, RDW Coeff of Inderjit 12.8, Plt Count 208, MPV 9.9, Immature Gran % (Auto) 0.400, Neut % (Auto) 62.3, Lymph % (Auto) 28.9, Green % (Auto) 7.2, Eos % (Auto) 0.6, Baso % (Auto) 0.6, Absolute Neuts (auto) 3.3, Absolute Lymphs (auto) 1.52, Nucleated RBC % 0 10/18/21 05:18: POC Glucose 136 H D/C Instructions Discharge Diet: Carb Control Diet Call your doctor if you observe: Shortness of breath, Dizziness and Chest pain Meaningful Use Info Meaningful Use Diagnoses (Choose all that apply): None applicable Discharge Plan Admission Admit Date/Time: 10/17/21 23:00 Primary Reason for Your Visit: MYRON Attending Provider: Daina Saucedo Primary Care Provider: William Rodriguez Discharge Orders/Prescriptions Prescriptions: New sertraline 50 mg Tablet 50 mg PO DAILY Qty: 30 RF: 0 Continued ascorbic acid (vitamin C) 1,000 mg tablet extended release 1,000 mg PO DAILY RF: 0 aspirin [Aspirin Low Dose] 81 mg tablet,delayed release (DR/EC) 81 mg PO QDAY RF: 0 lansoprazole [Prevacid] 30 mg capsule,delayed release(DR/EC) 30 mg PO PRN PRN (Reason: GERD) RF: 0 fluticasone propion-salmeterol [Advair Diskus] 500-50 mcg/dose blister with device 1 inh INHALATION DAILY RF: 0 cholecalciferol (vitamin D3) 25 mcg (1,000 unit) capsule 25 mcg PO DAILY RF: 0 cyanocobalamin (vitamin B-12) 1,000 MCG capsule 1,000 mcg PO DAILY RF: 0 lovastatin 40 mg Tablet 40 mg PO BID RF: 0 levothyroxine 88 mcg tablet 0.112 mcg PO DAILY RF: 0 hydrochlorothiazide 25 mg tablet 25 mg PO QDAY RF: 0 lisinopril 40 mg tablet 40 mg PO QDAY RF: 0 (DME) Contour Next Test Strips Strip See Rx Instructions .ROUTE .MEDSUPPLY Qty: 450 RF: 3 (DME) insulin syringe-needle U-100 [BD Insulin Syringe Ultra-Fine] 0.3 mL 31 gauge x 11/09 syringe See Rx Instructions .ROUTE .MEDSUPPLY Qty: 20 RF: 5 (DME) Accu-Chek Guide test strips Strip See Rx Instructions .ROUTE .MEDSUPPLY Qty: 450 RF: 3 Novolog U-100 Insulin aspart 100 unit/mL solution See Rx Instructions SC QDAY Qty: 50 RF: 11 (DME) Accu-Chek Guide test strips Strip See Rx Instructions .ROUTE .MEDSUPPLY Qty: 450 RF: 3 Referrals / Follow Up: William Rodriguez MD [Primary Care Provider] - In 1 Week Disposition Disposition (needs filled in before D/C Order can be placed): Home, Self Care Documented by User: Dr. Daina Saucedo MD 10/26/21 15:13 Providers Date of Admission: 10/17/21 Reason For Visit: DKA Medications at Discharge Home Medications ascorbic acid (vitamin C) 1,000 mg tablet,extended release 1,000 mg PO DAILY 06/06/17 aspirin 81 mg tablet,delayed release 81 mg PO QDAY 06/06/17 fluticasone 500 mcg-salmeterol 50 mcg/dose blistr powdr for inhalation 1 inh INHALATION DAILY 06/06/17 lansoprazole 30 mg capsule,delayed release 30 mg PO PRN PRN 06/06/17 cyanocobalamin (vitamin B-12) 1,000 mcg PO DAILY 07/15/17 blood sugar diagnostic #450 ea 06/06/20 insulin syringe-needle U-100 0.3 mL 31 gauge x 11/09 #20 ea 07/10/20 blood sugar diagnostic #450 ea 08/01/20 insulin aspart U-100 100 unit/mL subcutaneous solution See Rx Instructions SC QDAY #50 ml 08/12/20 cholecalciferol (vitamin D3) 25 mcg (1,000 unit) capsule 25 mcg PO DAILY 08/26/20 blood sugar diagnostic #450 ea 07/17/21 hydrochlorothiazide 25 mg PO QDAY 10/17/21 levothyroxine 0.112 mcg PO DAILY 10/17/21 lisinopril 40 mg PO QDAY 10/17/21 lovastatin 40 mg PO BID 10/17/21 sertraline 50 mg PO DAILY #30 tab 10/18/21 ABG / Lab / Microbiology Data Result Diagrams: 10/18/21 03:50 10/18/21 03:50 Discharge Plan Admission Admit Date/Time: 10/17/21 23:00 Primary Reason for Your Visit: DKA Attending Provider: Daina Saucedo Primary Care Provider: iWlliam Rodriguez Discharge Orders/Prescriptions Prescriptions: New sertraline 50 mg Tablet 50 mg PO DAILY Qty: 30 RF: 0 Continued ascorbic acid (vitamin C) 1,000 mg tablet extended release 1,000 mg PO DAILY RF: 0 aspirin [Aspirin Low Dose] 81 mg tablet,delayed release (DR/EC) 81 mg PO QDAY RF: 0 lansoprazole [Prevacid] 30 mg capsule,delayed release(DR/EC) 30 mg PO PRN PRN (Reason: GERD) RF: 0 fluticasone propion-salmeterol [Advair Diskus] 500-50 mcg/dose blister with device 1 inh INHALATION DAILY RF: 0 cholecalciferol (vitamin D3) 25 mcg (1,000 unit) capsule 25 mcg PO DAILY RF: 0 cyanocobalamin (vitamin B-12) 1,000 MCG capsule 1,000 mcg PO DAILY RF: 0 lovastatin 40 mg Tablet 40 mg PO BID RF: 0 levothyroxine 88 mcg tablet 0.112 mcg PO DAILY RF: 0 hydrochlorothiazide 25 mg tablet 25 mg PO QDAY RF: 0 lisinopril 40 mg tablet 40 mg PO QDAY RF: 0 (DME) Contour Next Test Strips Strip See Rx Instructions .ROUTE .MEDSUPPLY Qty: 450 RF: 3 (DME) insulin syringe-needle U-100 [BD Insulin Syringe Ultra-Fine] 0.3 mL 31 gauge x 5/16 syringe See Rx Instructions .ROUTE .MEDSUPPLY Qty: 20 RF: 5 (DME) Accu-Chek Guide test strips Strip See Rx Instructions .ROUTE .MEDSUPPLY Qty: 450 RF: 3 Novolog U-100 Insulin aspart 100 unit/mL solution See Rx Instructions SC QDAY Qty: 50 RF: 11 (DME) Accu-Chek Guide test strips Strip See Rx Instructions .ROUTE .MEDSUPPLY Qty: 450 RF: 3 Referrals / Follow Up: William Rodriguez MD [Primary Care Provider] - In 1 Week Disposition Disposition (needs filled in before D/C Order can be placed): Home, Self Care Charges/Coding Addendum Addendum: Patient seen by Peace BUTTERFIELD under my supervision Patient is a 56-year-old female with an extensive past medical history as outlined was admitted through the ED with a complaint of nausea, vomiting and diarrhea. Patient had a history of type I diabetic and had also been drinking heavily the night before presentation. On admission she was found to have blood sugar of 229 and sodium was 121 bicarb of 17 and anion gap of 19. Urine was positive for moderate ketones. She was admitted and managed for DKA. She was hydrated with IV fluids. She was placed on long-acting insulin and also placed on insulin sliding scale. Her insulin pump was temporarily shut off while she was in the hospital. Blood sugars improved and anion gap closed. She was transitioned to a diet and did well. She was started back on her insulin pump and counseled about quitting drinking. She remained sable and was dishcharged home on 10/18/2021. She is to follow-up with her PCP and mineral economist. Patient seen and examined prior to discharge. She had no active complaints and had an uneventful night. Review of systems otherwise negative. Labs and vitals reviewed. Medication reviewed and reconciled. O/E: Const alert, oriented x3 and no apparent distress General Appearance: cooperative HEENT normocephalic, head/scalp atraumatic, hearing grossly normal bilaterally and moist oral mucous membranes Eyes PERRL, EOMs intact bilaterally and conjunctivae normal Neck no lymphadenopathy, supple and no JVD Resp normal respiratory effort and clear to auscultation bilaterally Cardio regular rate, regular rhythm, S1 normal heart sound, S2 normal heart sound and no murmurs GI normal to inspection, nondistended, normoactive bowel sounds and soft to palpation Extremity normal to inspection, full ROM and no clubbing, cyanosis or edema Skin no rashes or lesions noted Neuro oriented x3, CN's II-XII intact bilaterally and moves all extremities Sensorium / Orientation: awake and alert Psych affect normal Plan is for discharge home Rest as per Peace Beal METAL WASHING MACHINE OPERATOR-C's note, which I have reviewed and reconciled. Total time I spent on the care of the patient was 27 mins, with Peace Beal spending 16 mins, making a total of 43 mins. Visit Charges Inpatient E&M: [id number] Disch Hosp
== END 2021-10-18 17:20 | disposition home or self-care (01) | DRG 639 ==
LOC: ED 22:54 → ICU 23:07 → MS3 10-18 10:30
PROVIDERS: Admitting Provider Family Medicine; Emergency Provider Emergency Medicine; PCP Family Medicine; Visit Provider Student in an Organized Health Care Education/Training Program
DX: E10.10 Type 1 diabetes mellitus with ketoacidosis without coma (principal); E03.9 Hypothyroidism, unspecified; Z79.4 Long term (current) use of insulin; I10 Essential (primary) hypertension; F10.10 Alcohol abuse, uncomplicated; K21.9 Gastro-esophageal reflux disease without esophagitis; E78.5 Hyperlipidemia, unspecified; R19.7 Diarrhea, unspecified; F17.200 Nicotine dependence, unspecified, uncomplicated; Z79.82 Long term (current) use of aspirin; Z78.0 Asymptomatic menopausal state; Z79.890 Hormone replacement therapy; Z79.899 Other long term (current) drug therapy; Z96.41 Presence of insulin pump (external) (internal)
CPT/HCPCS: 80048; 80076; 81001; 82009; 82962; 83690; 85025; 97802; 99284; 99406; J7030; A4216; J2405

== ENCOUNTER 2022-02-21 16:59 | Inpatient (IN) | payer OTHER, SELFPAY ==
[2022-02-21 17:00] VITALS: BP 160/88; PULSE 98; RESP 20; TEMP 36.6; O2SAT 99; BMI 27.1
--- NOTE | 2022-02-21 17:10 | ED.RN ---
typically drinks 1 pint diluted vodka per day.
--- NOTE | 2022-02-21 17:37 | EDS_ITS ---
HPI History of Present Illness Chief Complaint: Substance Abuse Informant: patient Narrative Narrative: Patient states she is here for alcohol detox. She states that she just cannot do this anymore. She denies ever actually going through a detox program. She has been involved in [employer] but just on the periphery. She does not have a sponsor but was working to [employer]. She drinks about a pint of gas station vodka a day. She last had a drink evening. She has some mild diarrhea without blood. She feels tense and shaky. No hallucinations. No diaphoresis. She states yesterday her blood sugars were running high close to 400. But today they have been running 230 and below. [facility] Medical History (Updated 02/21/22 @ 23:[address] 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 Insulin dependent diabetes mellitus Insulin pump titration Mixed hyperlipidemia Personal history of colonic polyps Post-menopausal Presence of insulin pump Smoker Snoring Thyroid disease Type 1 diabetes mellitus Vitamin B 12 deficiency Wears glasses Home Medications ascorbic acid (vitamin C) 1,000 mg tablet,extended release 1,000 mg PO DAILY supplement 06/06/17 [History Last Taken 02/20/22 08:00] aspirin 81 mg tablet,delayed release (Luis Felipe Low Dose Aspirin) 81 mg PO QDAY [facility] 06/06/17 [History Last Taken 02/20/22 08:00] fluticasone 500 mcg-salmeterol 50 mcg/dose blistr powdr for inhalation (Advair Diskus) 1 inh inhalation DAILY asthma 06/06/17 [History Last Taken 02/21/22 08:00] lansoprazole 30 mg capsule,delayed release (Prevacid) 30 mg PO PRN PRN GERD 06/06/17 [History Last Taken 02/20/22] cyanocobalamin (vitamin B-12) 1,000 mcg capsule 1,000 mcg PO DAILY vitamin 07/15/17 [History Last Taken 02/20/22 08:00] insulin syringe-needle U-100 0.3 mL 31 gauge x 5/16 (BD Insulin Syringe Ultra- Fine) #20 ea 07/10/20 [Rx Last Taken Unknown] blood sugar diagnostic (Accu-Chek Guide test strips) #450 ea 08/01/20 [Rx Last Taken Unknown] cholecalciferol (vitamin D3) 25 mcg (1,000 unit) capsule 25 mcg PO DAILY supplement 08/26/20 [History Last Taken 02/20/22 08:00] blood sugar diagnostic (Accu-Chek Guide test strips) #450 ea 07/17/21 [Rx Last Taken Unknown] hydrochlorothiazide 25 mg tablet 25 mg PO QDAY blood pressure 10/17/21 [History Last Taken 02/20/22 08:00] lisinopril 40 mg tablet 40 mg PO QDAY blood pressure 10/17/21 [History Last Taken 02/20/22 08:00] lovastatin 40 mg tablet 40 mg PO BID cholesterol 10/17/21 [History Last Taken 02/20/22 20:00] insulin aspart U-100 100 unit/mL subcutaneous solution (Novolog U-100 Insulin aspart) See Rx Instructions subcut QDAY e10.9 #50 mL 12/24/21 [Rx Last Taken Unknown] escitalopram oxalate 10 mg tablet 10 mg PO DAILY anxiety 02/11/22 [History Last Taken 02/21/22 08:00] levothyroxine 100 mcg tablet 100 mcg PO DAILY #90 tabs 02/15/22 [Rx Last Taken 02/21/22 06:00] Allergy/AdvReac Type Severity Reaction Status Date / Time No Known Allergies Allergy Verified 02/21/22 19:38 Family History Father Malignant tumor of kidney Arthritis Grandfather Colon cancer Surgical History S/P appendectomy S/P colonoscopy S/P hysterectomy S/P oophorectomy Social History Smoking Status: Light Smoker (<10/day) second hand exposure: No alcohol intake: never substance use type: does not use caffeine: Yes what type of physical activity do you participate in: walking frequency: 1-2 times per week seatbelt use: always ROS ROS ED Constitutional Constitutional ED: Denies chills or fever(s) Eyes Eyes: Denies change in vision ENT ENT ED: Denies sore throat Cardiovascular Cardiovascular: Denies chest pain or palpitations Respiratory/Chest Respiratory/Chest: Denies cough or dyspnea Gastrointestinal Gastrointestinal: Reports diarrhea; Denies abdominal pain Genitourinary Genitourinary ED: Denies dysuria Musculoskeletal Musculoskeletal: Reports myalgias and other Details: Patient does have what she describes as tight muscles. She states this is typical of her withdrawal. Integumentary Denies rash Neurologic Neurologic: Denies paresthesias or weakness Psychiatric Psychiatric: Reports anxiety; Denies suicidal thoughts Endocrine Endocrinology: Denies polydipsia or polyuria Hematologic/Lymphatic Hematologic/Lymphatic: Denies easy bleeding or easy bruising Allergic/Immunologic Allergic/Immunologic ED: Denies urticaria EXAM Physical Exam Const Vital Signs: 02/21/22 17:00 Temperature 98 F Temperature Source Temporal Pulse Rate 98 Respiratory Rate 20 H Blood Pressure 160/88 H Blood Pressure Mean 112 Pulse Ox 99 Oxygen Delivery Method Room Air Positive well nourished and well developed General Appearance ED: well developed and NAD; Negative for diaphoretic HEENT Reports moist mucous membranes Eyes General Eye ED: Negative for scleral icterus Cardio regular rate and regular rhythm Rate: other Other Details: Heart rate is right about 90-100. GI normal to inspection, nondistended, normoactive bowel sounds and non-tender Back/Spine no CVA tenderness Neuro oriented x3 Neuro Narrative: Patient is oriented x3. Does not appear to have any hallucinations Psych Psych Narrative: Mildly anxious. Mood & Affect: anxious Skin no rashes or lesions noted Skin Narrative: No diaphoresis or piloerections. MDM MDM MDM Narrative Medical decision making narrative: Work showed minimal anemia. Electrolytes show minimal decrease of sodium and potassium. This should correct with diet. Alcohol was negative. Liver function test overall good other than minimal elevation of AST. Patient will be admitted. Lab Data Attestation: I reviewed the patient's lab results. Labs: Laboratory Results - last 24 hr 02/21/22 02/21/22 02/21/22 17:23 17:23 17:23 WBC 9.0 RBC 3.59 L Hgb 11.8 L Hct 34.1 L MCV 95.0 MCH 32.9 H MCHC 34.6 RDW Std Deviation 42.4 RDW Coeff of Inderjit 12.1 Plt Count 263 MPV 10.5 Immature Gran % (Auto) 0.300 Neut % (Auto) 71.7 H Lymph % (Auto) 20.9 [place] % (Auto) 6.5 Eos % (Auto) 0.3 Baso % (Auto) 0.3 Absolute Neuts (auto) 6.4 Absolute Lymphs (auto) 1.88 Nucleated RBC % 0 Sodium 127 L Potassium 3.2 L Chloride 91 L Carbon Dioxide 24.0 Anion Gap 12 BUN 6 L Creatinine 0.64 Estim Creat Clear Calc 82.74 Est GFR (MDRD) Af Amer 123 Est GFR (MDRD) Non-Af 102 BUN/Creatinine Ratio 9.4 L Glucose 52 L Calcium 9.0 Phosphorus Magnesium Total Bilirubin 0.60 AST 61 H ALT 40 Alkaline Phosphatase 94 Total Protein 6.7 Albumin 3.5 Globulin 3.2 Albumin/Globulin Ratio 1.1 Ethyl Alcohol < 3.0 02/21/22 17:23 WBC RBC Hgb Hct MCV MCH MCHC RDW Std Deviation RDW Coeff of Inderjit Plt Count MPV Immature Gran % (Auto) Neut % (Auto) Lymph % (Auto) [place] % (Auto) Eos % (Auto) Baso % (Auto) Absolute Neuts (auto) Absolute Lymphs (auto) Nucleated RBC % Sodium Potassium Chloride Carbon Dioxide Anion Gap BUN Creatinine Estim Creat Clear Calc Est GFR (MDRD) Af Amer Est GFR (MDRD) Non-Af BUN/Creatinine Ratio Glucose Calcium Phosphorus 2.0 L Magnesium 1.2 L Total Bilirubin AST ALT Alkaline Phosphatase Total Protein Albumin Globulin Albumin/Globulin Ratio Ethyl Alcohol Discharge Plan Dx/Rx/DC Orders Clinical Impression: Alcohol withdrawal, Desire for detoxification Disposition Disposition: Acute Care Hospital [facility] Discharge Date/Time: 02/21/22 19:05
--- NOTE | 2022-02-21 17:37 | PCM.HP.STD ---
HPI - General General Date of Admission: 02/21/22 Date of Service: 02/21/22 Chief Complaint: alcohol withdrawal HPI Narrative KADIE PRADHAN, is a 57 F with a PMH as outlined who presents for acute alcohol withdrawal. She drinks a pint of vodka daily, and her last drink was 3 days ago. She was admitted with shakiness, feeling tense, diarrhea but denied any increased sweating. Review of systems otherwise negative. SHe was admitted in September 2021 for DKA and says she ahs never been through withdrawal. She denies any fever, chills, nausea or vomiting. Vitals in the ED were temp of 98F, BP of 160/88, CA of 98, RR of 20 and she was saturating at 99% on room air. CBC adn BMP as well as urine tox and ethyl alcohol levels were pending. She is being admitted to be managed for acute alcohol withdrawal. 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 Insulin dependent diabetes mellitus Insulin pump titration Mixed hyperlipidemia Personal history of colonic polyps Post-menopausal Presence of insulin pump Smoker Snoring Thyroid disease Type 1 diabetes mellitus Vitamin B 12 deficiency Wears glasses Home Medications ascorbic acid (vitamin C) 1,000 mg tablet,extended release 1,000 mg PO DAILY Check with primary doctor 06/06/17 [History Last Taken Unknown] aspirin 81 mg tablet,delayed release (Luis Felipe Low Dose Aspirin) 81 mg PO QDAY Check with primary doctor 06/06/17 [History Last Taken 07/11/17] fluticasone 500 mcg-salmeterol 50 mcg/dose blistr powdr for inhalation (Advair Diskus) 1 inh inhalation DAILY Check with primary doctor 06/06/17 [History Last Taken 07/13/21 06:15] lansoprazole 30 mg capsule,delayed release (Prevacid) 30 mg PO PRN PRN GERD 06/06/17 [History Last Taken Unknown] cyanocobalamin (vitamin B-12) 1,000 mcg capsule 1,000 mcg PO DAILY Check with primary doctor 07/15/17 [History Last Taken Unknown] insulin syringe-needle U-100 0.3 mL 31 gauge x 5/16 (BD Insulin Syringe Ultra-Fine) #20 ea 07/10/20 [Rx Last Taken Unknown] blood sugar diagnostic (Accu-Chek Guide test strips) #450 ea 08/01/20 [Rx Last Taken Unknown] cholecalciferol (vitamin D3) 25 mcg (1,000 unit) capsule 25 mcg PO DAILY Check with primary doctor 08/26/20 [History Last Taken Unknown] blood sugar diagnostic (Accu-Chek Guide test strips) #450 ea 07/17/21 [Rx Last Taken Unknown] hydrochlorothiazide 25 mg tablet 25 mg PO QDAY Check with primary doctor 10/17/21 [History Last Taken Unknown] lisinopril 40 mg tablet 40 mg PO QDAY Check with primary doctor 10/17/21 [History Last Taken Unknown] lovastatin 40 mg tablet 40 mg PO BID Check with primary doctor 10/17/21 [History Last Taken Unknown] sertraline 50 mg tablet 50 mg PO DAILY #30 tabs 10/18/21 [Rx Last Taken Unknown] insulin aspart U-100 100 unit/mL subcutaneous solution (Novolog U-100 Insulin aspart) See Rx Instructions subcut QDAY e10.9 #50 mL 12/24/21 [Rx Last Taken Unknown] escitalopram oxalate 10 mg tablet 10 mg PO DAILY 02/11/22 [History Last Taken Unknown] levothyroxine 100 mcg tablet 100 mcg PO DAILY #90 tabs 02/15/22 [Rx Last Taken Unknown] Allergy/AdvReac Type Severity Reaction Status Date / Time No Known Allergies Allergy Verified 02/21/22 17:00 Family History Father Malignant tumor of kidney Arthritis Grandfather Colon cancer Surgical History S/P appendectomy S/P colonoscopy S/P hysterectomy S/P oophorectomy Social History Smoking Status: Light Smoker (<10/day) second hand exposure: No alcohol intake: never substance use type: does not use caffeine: Yes what type of physical activity do you participate in: walking frequency: 1-2 times per week seatbelt use: always ROS Review of Systems ROS Unobtainable: Denies due to encephalopathy Constitutional Constitutional: Denies anorexia, chills, fatigue, fever(s), malaise or weakness Eyes Eyes: Denies change in vision ENT HEENT: Denies dysphagia or sore throat Cardiovascular Cardiovascular: Denies chest pain, dyspnea on exertion, edema, lightheadedness, orthopnea, palpitations, paroxysmal nocturnal dyspnea, rapid heart rate or syncope Respiratory/Chest Respiratory/Chest: Denies cough, dyspnea, excessive phlegm production, shortness of breath at rest or shortness of breath with exertion Gastrointestinal Gastrointestinal: Denies abdominal pain, constipation, diarrhea, nausea or vomiting Genitourinary Genitourinary: Denies burning urination or dysuria Musculoskeletal Musculoskeletal: Denies back pain or joint swelling Neurologic Neurologic: Denies confusion, dizziness, focal weakness, headache(s), seizure-like activity or seizures Psychiatric Psychiatric: Denies anxiety Vital Signs Vital Signs Vital Signs: 02/21/22 17:00 Temperature 98 F Temperature Source Temporal Pulse Rate 98 Respiratory Rate 20 H Blood Pressure 160/88 H Blood Pressure Mean 112 Pulse Ox 99 Oxygen Delivery Method Room Air Weight Weight: 158 lb 1.143 oz Body Mass Index (BMI) 27.1 Physical Exam Const alert, oriented x3 and no apparent distress General Appearance: cooperative HEENT normocephalic, head/scalp atraumatic, hearing grossly normal bilaterally and moist oral mucous membranes Mouth: oral and palatal mucosa normal Eyes PERRL, EOMs intact bilaterally and conjunctivae normal Neck no lymphadenopathy, supple and no JVD Resp normal respiratory effort, no retractions, no use of accessory muscles and clear to auscultation bilaterally Cardio regular rate, regular rhythm, S1 normal heart sound, S2 normal heart sound and no murmurs GI normal to inspection, nondistended, normoactive bowel sounds, soft to palpation and non-tender Extremity normal to inspection, full ROM and no clubbing, cyanosis or edema Neuro oriented x3, CN's II-XII intact bilaterally, moves all extremities and no focal motor deficits Neuro Narrative: tremors of UEs Sensorium / Orientation: awake and alert Speech: speech normal Motor Exam: strength 5/5 throughout Psych affect normal Results Lab / Micro Data Result Diagrams: 02/21/22 17:23 02/21/22 17:23 Assessment & Plan Assessment/Plan (1) Alcohol withdrawal: PLAN: Plan #Acute alcohol withdrawal admit to med surg CBC, BMP and urine tox pending start on alcohol withdrawal protocol with phenobarbital thiamine, folic acid and multivite monitor CIWA score #Type 1 diabetes mellitus on insulin pump ISS. Accuchecks ACHS #Hypothyroidism: on synthroid #Hypertension: on lisinopril and HCTZ #Hyperlipidemia: on statin Depression and anxiety: on sertraline and escitalopram DVT Prophylaxis:low risk, encourage to ambulate Charges/Coding Visit Charges Inpatient E&M: 93488 Init Hosp L3
[2022-02-21 18:01] LABS: Absolute Lymphocyte Count 1.88 X10^3/uL (0.83-4.51); Absolute Neutrophil Count 6.4 X10^3/uL (2.0-7.7); Basophil# 0.03 X10^3/uL; Basophil% 0.3 % (0-1); Eosinophil# 0.03 X10^3/uL; Eosinophils% 0.3 % (0-5); Hematocrit 34.1 % (37-47); Hemoglobin 11.8 g/dL (12.0-15.0); Lymphocyte # 1.88 X10^3/ul (0.83-4.51); Lymphocyte % 20.9 % (19-41); Mean Corp Hgb Conc 34.6 g/dL (32-36); Mean Corpuscular Hgb 32.9 pg (27.0-32.0); Mean Platelet Vol. 10.5 fl (6.2-12.0); Monocyte# 0.58 X10^3/uL; Monocyte% 6.5 % (0-10); NRBC Flagged by Analyzer 0 % (0-5); Neutrophil # 6.44 X10^3/uL (2.7-7.7); Neutrophil % 71.7 % (47-70); Platelet Count 263 K/mm3 (150-450); RBC Distribution Width CV 12.1 % (11.6-14.6); RBC Distribution Width SD 42.4 fl (35.1-43.9); Red Blood Count 3.59 M/mm3 (4.2-5.4)
[2022-02-21] MEDS: LORazepam 2 MG/ML Syringe 1 MG IV (18:01)
[2022-02-21 18:17] LABS: International Normalized Ratio 0.9; Prothrombin Time (Protime)PT. 11.8 SECONDS (11.7-14.9)
[2022-02-21 18:21] LABS: ALB/GLOB Ratio 1.1 RATIO (0.9-2.4); AST(SGOT) 61 U/L (15-37); Alanine Aminotransfer ALT/SGPT 40 U/L (13-56); Albumin, Serum 3.5 g/dL (3.2-5.0); Alkaline Phosphatase 94 U/L (45-117); Anion Gap 12 (5-15); BUN 6 mg/dL (7-18); BUN/Creat Ratio 9.4 RATIO (10-20); Chloride 91 mmol/L (98-107); Creatinine, Serum 0.64 mg/dL (0.55-1.02); EST Glomerular Filtration Rate 102 mL/min (>60); Est Glom Filt Rate - Afr Amer 123 mL/min (>60); Estimated Creatinine Clearance 82.74 ml/min; Globulin 3.2 g/dL (2.2-4.2); Glucose 52 mg/dL (74-106); Potassium 3.2 mmol/L (3.5-5.1); Protein, Total 6.7 g/dL (6.4-8.2); Sodium Level 127 mmol/L (136-145)
[2022-02-21 18:24] VITALS: BP 136/78; PULSE 90; RESP 16; O2SAT 98
[2022-02-21] MEDS: Potassium Chloride Oral Tablet 20 MEQ 40 MEQ PO (18:53)
[2022-02-21 19:04] VITALS: BP 136/78; PULSE 90; RESP 16; TEMP 36.6; O2SAT 98
[2022-02-21 19:11] LABS: Bedside Glucose 69 mg/dL (74-106)
[2022-02-21 19:19] VITALS: BP 144/78; PULSE 88; RESP 18; TEMP 36.9; O2SAT 100
[2022-02-21 19:25] VITALS: BMI 27.4
--- NOTE | 2022-02-21 19:25 | NURSING ---
pt states she just placed/changed her insulin pump on yesterday. states she doesn't have her new continuous glucose monitor on. pt educated on glucose levels. pt places her insulin pump on suspend.
[2022-02-21 19:27] LABS: Alcohol, Blood (Medical)-Serum < 3.0 mg/dL
[2022-02-21 19:29] LABS: Magnesium 1.2 mg/dL (1.6-2.6)
[2022-02-21 19:41] LABS: Bedside Glucose 132 mg/dL (74-106)
[2022-02-21] MEDS: Phenobarbital 32.4 MG Tablet 64.8 MG PO ×2 (20:02→23:32)
[2022-02-21] MEDS: Loperamide 2 MG Capsule PO (20:02)
[2022-02-21] MEDS: Gabapentin 300 MG Capsule PO (20:02)
[2022-02-21] MEDS: traZODone 100 MG Tablet PO (21:31)
[2022-02-21] MEDS: Atorvastatin Calcium 10 MG Tablet PO (21:31)
[2022-02-21] MEDS: Insulin Lispro 100 UNIT/ML INSULN.PEN SC (21:32)
[2022-02-21 21:55] LABS: Bedside Glucose 204 mg/dL (74-106)
[2022-02-21 23:32] VITALS: BP 121/71; PULSE 80; RESP 16; TEMP 36.5; O2SAT 98
[2022-02-22] VITALS (7 sets, daily range): BP systolic 100–118; BP diastolic 64–70; PULSE 79–103; RESP 16–18; TEMP 36.6–36.8; O2SAT 97–100
[2022-02-22] MEDS: Phenobarbital 32.4 MG Tablet 64.8 MG PO ×6 (03:47→23:15)
[2022-02-22] MEDS: Levothyroxine 100 MCG Tablet PO (06:26)
[2022-02-22 06:50] LABS: Bedside Glucose 461 mg/dL (74-106)
--- NOTE | 2022-02-22 07:13 | PCM.PN.HOSP ---
Subjective Subjective Groggy due to phenobarbital. No other events. Objective Data Objective Data Vital Signs: Vital Signs Temp Pulse Resp BP Pulse Ox O2 Del Method 36.6 C 79 16 118/70 100 Room Air 02/22/22 03:50 02/22/22 03:50 02/22/22 03:50 02/22/22 03:50 02/22/22 03:50 02/22/22 03:50 Oxygen Delivery Method Room Air Weight: 72.6 kg Body Mass Index (BMI) 27.4 Intake & Output: Intake and Output for Last 24 Hours 02/20/22 02/21/22 02/22/22 23:59 23:59 23:59 Intake Total 500 / 500 Output Total 900 / 900 Balance 500 / 500 -900 / -900 Lab / Micro Data Result Diagrams: 02/21/22 17:23 02/22/22 09:23 Labs: Laboratory Results - last 24 hr 02/21/22 06:35: Ur Drug Screen Comment 02/21/22 17:23: WBC 9.0, RBC 3.59 L, Hgb 11.8 L, Hct 34.1 L, MCV 95.0, MCH 32.9 H, MCHC 34.6, RDW Std Deviation 42.4, RDW Coeff of Inderjit 12.1, Plt Count 263, MPV 10.5, Immature Gran % (Auto) 0.300, Neut % (Auto) 71.7 H, Lymph % (Auto) 20.9, [place] % (Auto) 6.5, Eos % (Auto) 0.3, Baso % (Auto) 0.3, Absolute Neuts (auto) 6.4, Absolute Lymphs (auto) 1.88, Nucleated RBC % 0 02/21/22 17:23: Sodium 127 L, Potassium 3.2 L, Chloride 91 L, Carbon Dioxide 24.0, Anion Gap 12, BUN 6 L, Creatinine 0.64, Estim Creat Clear Calc 82.74, Est GFR (MDRD) Af Amer 123, Est GFR (MDRD) Non-Af 102, BUN/Creatinine Ratio 9.4 L, Glucose 52 L, Calcium 9.0, Total Bilirubin 0.60, AST 61 H, ALT 40, Alkaline Phosphatase 94, Total Protein 6.7, Albumin 3.5, Globulin 3.2, Albumin/Globulin Ratio 1.1 02/21/22 17:23: Ethyl Alcohol < 3.0 02/21/22 17:23: Phosphorus 2.0 L, Magnesium 1.2 L 02/21/22 17:52: PT 11.8, INR 0.9 02/21/22 18:49: POC Glucose 69 L 02/21/22 19:18: POC Glucose 132 H 02/21/22 21:29: POC Glucose 204 H 02/22/22 06:25: POC Glucose 461 H* Physical Exam Const alert, oriented x3 and no apparent distress HEENT head/scalp atraumatic Psych affect normal Assessment & Plan Assessment/Plan (1) Alcohol withdrawal: QUALIFIERS: Complication of substance-induced condition: uncomplicated Qualified Code(s): F10.930 - Alcohol use, unspecified with withdrawal, uncomplicated PLAN: Acute alcohol withdrawal Last drink was the 25th. Asymptomatic with the exception of grogginess due to the phenobarbital Thiamine and folate Patient established with [employer] and does have a sponsor. Did recommend patient work with addiction medicine to set up outpatient programs. (2) Diabetes: QUALIFIERS: Diabetes mellitus type: type 1 Diabetes mellitus complication status: without complication Qualified Code(s): E10.9 - Type 1 diabetes mellitus without complications PLAN: Insulin pump resumed after being turned off Patient does not have her glucose monitor so we will check her with meals and at night. PLAN: Plan Chronic issues: #Hypothyroidism: on synthroid #Hypertension: on lisinopril and HCTZ #Hyperlipidemia: on statin #Depression and anxiety: on sertraline and escitalopram DVT Prophylaxis:low risk, encourage to ambulate Charges/Coding Visit Charges Inpatient E&M: 21705 [facility] Hosp L1
[2022-02-22 07:16] LABS: ALB/GLOB Ratio 0.9 RATIO (0.9-2.4); AST(SGOT) 46 U/L (15-37); Alanine Aminotransfer ALT/SGPT 33 U/L (13-56); Alkaline Phosphatase 97 U/L (45-117); Anion Gap 12 (5-15); BUN 7 mg/dL (7-18); BUN/Creat Ratio 9.7 RATIO (10-20); Calcium,Total 8.7 mg/dL (8.5-10.1); Chloride 98 mmol/L (98-107); Creatinine, Serum 0.72 mg/dL (0.55-1.02); EST Glomerular Filtration Rate 89 mL/min (>60); Est Glom Filt Rate - Afr Amer 107 mL/min (>60); Estimated Creatinine Clearance 73.55 ml/min; Globulin 3.2 g/dL (2.2-4.2); Glucose 496 mg/dL (74-106); Potassium 6.5 mmol/L (3.5-5.1); Protein, Total 6.2 g/dL (6.4-8.2); Sodium Level 128 mmol/L (136-145)
[2022-02-22] MEDS: Budesonide Respules 0.5 MG/2 ML AMPUL.NEB. INHALATION (07:19)
[2022-02-22] MEDS: Albuterol 2.5 MG/3 ML VIAL.NEB. INHALATION ×2 (07:19→13:04)
[2022-02-22 07:25] LABS: Amphetamine Urine VISTA NEGATIVE (<1000 ng/mL); Barbiturate Urine VISTA POSITIVE (< 200 ng/mL); Benzodiazepine Urine VISTA NEGATIVE (< 200 ng/mL); Cocaine Urine VISTA NEGATIVE (< 300 ng/mL); Ecstacy Urine VISTA NEGATIVE (< 500 ng/mL); Methadone Urine VISTA NEGATIVE (< 300 ng/mL); PCP Urine VISTA NEGATIVE (< 25 ng/mL); THC Urine VISTA NEGATIVE (< 50 ng/mL); Vista UDS pH Range 7
[2022-02-22] MEDS: Insulin Lispro 100 UNIT/ML INSULN.PEN SC (07:31)
[2022-02-22 07:50] LABS: Bedside Glucose 460 mg/dL (74-106)
[2022-02-22] MEDS: Thiamine Hydrochloride 100 MG Tablet PO (09:26)
[2022-02-22] MEDS: Folic Acid 1 MG Tablet PO (09:26)
[2022-02-22] MEDS: Sertraline 50 MG Tablet PO (09:26)
[2022-02-22] MEDS: Cyanocobalamin 500 MCG Tablet 1000 MCG PO (09:26)
[2022-02-22] MEDS: hydroCHLOROthiazide 25 MG Tablet PO (09:26)
[2022-02-22] MEDS: Lisinopril 40 MG Tablet PO (09:27)
[2022-02-22] MEDS: Aspirin E.C. 81 MG Tablet PO (09:27)
[2022-02-22] MEDS: Ascorbic Acid 500 MG Tablet 1000 MG PO (09:27)
[2022-02-22] MEDS: Escitalopram Oxalate 10 MG Tablet PO (09:27)
[2022-02-22] MEDS: Cholecalciferol (VIT D3) 25 MCG TABLET (1,000 UNITS) PO (09:27)
[2022-02-22 09:59] LABS: Anion Gap 8 (5-15); BUN 9 mg/dL (7-18); BUN/Creat Ratio 9.6 RATIO (10-20); Chloride 102 mmol/L (98-107); Creatinine, Serum 0.94 mg/dL (0.55-1.02); EST Glomerular Filtration Rate 65 mL/min (>60); Est Glom Filt Rate - Afr Amer 79 mL/min (>60); Estimated Creatinine Clearance 56.33 ml/min; Glucose 274 mg/dL (74-106); Potassium 3.7 mmol/L (3.5-5.1); Sodium Level 133 mmol/L (136-145)
--- NOTE | 2022-02-22 10:19 | NURSING ---
Blood sugar checked since it was so high this morning, Blood sugar is 193 per glucometer. Pt has her own insulin pump that is on and maintained.
[2022-02-22 10:40] LABS: Bedside Glucose 193 mg/dL (74-106)
[2022-02-22 12:21] LABS: Bedside Glucose 129 mg/dL (74-106)
[2022-02-22 12:30] LABS: Magnesium 1.5 mg/dL (1.6-2.6)
--- NOTE | 2022-02-22 13:10 | ADDICTION ---
This health science writer met with PT to conduct ASAM, MSE, AUDIT, DUDIT assessments and to plan for d/c. PT A+Ox4 and participated actively. All assessments completed and placed in PT's chart. PT plans to f/u with [facility] for outpatient treatment services. PT did not indicate a need for transportation post d/c from [facility].
[2022-02-22 17:10] LABS: Bedside Glucose 167 mg/dL (74-106)
[2022-02-22] MEDS: Atorvastatin Calcium 10 MG Tablet PO (20:56)
[2022-02-22] MEDS: Magnesium Chloride 64 MG Delay Rel.Tablet 128 MG PO (21:02)
[2022-02-22 21:31] LABS: Bedside Glucose 116 mg/dL (74-106)
[2022-02-22] MEDS: traZODone 100 MG Tablet PO (23:14)
[2022-02-23] MEDS: Phenobarbital 32.4 MG Tablet 64.8 MG PO ×3 (04:53→11:58)
[2022-02-23] MEDS: Levothyroxine 100 MCG Tablet PO (04:54)
[2022-02-23 04:56] VITALS: BP 102/64; PULSE 85; RESP 16; TEMP 36.8; O2SAT 98
--- NOTE | 2022-02-23 06:58 | PN.HOSP_ITS ---
Subjective Subjective Feels well. No events. Objective Data Objective Data Vital Signs: Vital Signs Temp Pulse Resp BP Pulse Ox O2 Del Method 36.8 C 85 16 102/64 98 Room Air 02/23/22 04:56 02/23/22 04:56 02/23/22 04:56 02/23/22 04:56 02/23/22 04:56 02/23/22 04:56 Oxygen Delivery Method Room Air Weight: 72.6 kg Body Mass Index (BMI) 27.4 Intake & Output: Intake and Output for Last 24 Hours 02/21/22 02/22/22 02/23/22 23:59 23:59 23:59 Intake Total 500 / 500 900 / 1250 700 / 700 Output Total 1900 / 1900 Balance 500 / 500 -1000 / -650 700 / 700 Lab / Micro Data Result Diagrams: 02/21/22 17:23 02/22/22 09:23 Labs: Laboratory Results - last 24 hr 02/21/22 06:35: Urine Opiates Screen NEGATIVE, Urine Methadone Screen NEGATIVE, Ur Barbiturates Screen POSITIVE H, Ur Phencyclidine Scrn NEGATIVE, Ur [place] mines Screen NEGATIVE, MDMA (Ecstasy) Screen NEGATIVE, U Benzodiazepines Scrn NEGATIVE, Urine Cocaine Screen NEGATIVE, U Cannabinoids Screen NEGATIVE 02/22/22 05:18: Sodium 128 L, Potassium 6.5 H*, Chloride 98, Carbon Dioxide 18.0 L, Anion Gap 12, BUN 7, Creatinine 0.72, Estim Creat Clear Calc 73.55, Est GFR (MDRD) Af Amer 107, Est GFR (MDRD) Non-Af 89, BUN/Creatinine Ratio 9.7 L, Glucose 496 H*, Calcium 8.7, Total Bilirubin 0.60, AST 46 H, ALT 33, Alkaline Phosphatase 97, Total Protein 6.2 L, Albumin 3.0 L, Globulin 3.2, Albumin/Globulin Ratio 0.9 02/22/22 07:27: POC Glucose 460 H* 02/22/22 09:23: Sodium 133 L, Potassium 3.7, Chloride 102, Carbon Dioxide 23.0, Anion Gap 8, BUN 9, Creatinine 0.94, Estim Creat Clear Calc 56.33, Est GFR (MDRD) Af Amer 79, Est GFR (MDRD) Non-Af 65, BUN/Creatinine Ratio 9.6 L, Glucose 274 H, Calcium 9.0 02/22/22 09:23: Magnesium 1.5 L 02/22/22 10:18: POC Glucose 193 H 02/22/22 11:57: POC Glucose 129 H 02/22/22 16:44: POC Glucose 167 H 02/22/22 21:08: POC Glucose 116 H Physical Exam Const alert and no apparent distress GI normal to inspection, nondistended, normoactive bowel sounds Extremity normal to inspection Neuro Sensorium / Orientation: awake and alert Assessment & Plan Assessment/Plan (1) Alcohol withdrawal: QUALIFIERS: Complication of substance-induced condition: uncomplicated Qualified Code(s): F10.930 - Alcohol use, unspecified with withdrawal, uncomplicated PLAN: Acute alcohol withdrawal Last drink was the 25th. Asymptomatic with the exception of grogginess due to the phenobarbital Thiamine and folate Patient established with [facility] and does have a sponsor. Patient to follow up with [facility] for outpt TMT services. (2) Diabetes: QUALIFIERS: Diabetes mellitus complication status: without complication Diabetes mellitus type: type 1 Qualified Code(s): E10.9 - Type 1 diabetes mellitus without complications PLAN: Insulin pump resumed after being turned off Patient does not have her glucose monitor so we will check her with meals and at night. PLAN: Plan Chronic issues: #Hypothyroidism: on synthroid #Hypertension: on lisinopril and HCTZ #Hyperlipidemia: on statin #Depression and anxiety: on sertraline and escitalopram DVT Prophylaxis:low risk, encourage to ambulate
[2022-02-23 07:05] LABS: Bedside Glucose 211 mg/dL (74-106)
[2022-02-23] MEDS: Thiamine Hydrochloride 100 MG Tablet PO (08:12)
[2022-02-23] MEDS: Folic Acid 1 MG Tablet PO (08:12)
[2022-02-23] MEDS: Escitalopram Oxalate 10 MG Tablet PO (08:53)
[2022-02-23] MEDS: hydroCHLOROthiazide 25 MG Tablet PO (08:54)
[2022-02-23] MEDS: Cholecalciferol (VIT D3) 25 MCG TABLET (1,000 UNITS) PO (08:54)
[2022-02-23] MEDS: Cyanocobalamin 500 MCG Tablet 1000 MCG PO (08:54)
[2022-02-23] MEDS: Lisinopril 40 MG Tablet PO (08:54)
[2022-02-23] MEDS: Sertraline 50 MG Tablet PO (08:54)
[2022-02-23] MEDS: Aspirin E.C. 81 MG Tablet PO (08:54)
[2022-02-23] MEDS: Ascorbic Acid 500 MG Tablet 1000 MG PO (08:54)
[2022-02-23] MEDS: Magnesium Chloride 64 MG Delay Rel.Tablet 128 MG PO (09:01)
[2022-02-23 09:05] VITALS: BP 95/59; PULSE 75; RESP 16; TEMP 36.7; O2SAT 97
[2022-02-23 12:05] VITALS: BP 109/75; PULSE 85; RESP 18; TEMP 36.6; O2SAT 97
--- NOTE | 2022-02-23 12:14 | PCM.DC ---
Discharge Instructions Diet Discharge Diet: 1999 Calorie Control Diet [facility] When: at your earliest convenience Test Results: Test results from this visit will be discussed in further detail at your follow-up appointment, if applicable. Discharge Plan Admission Admit Date/Time: 02/21/22 17:47 Primary Reason for Your Visit: alcohol withdrawal Attending Provider: Cyrus Rea Primary Care Provider: William Rodriguez Consulting Providers: Daina Saucedo Discharge Orders/Prescriptions Prescriptions: New multivitamin Tablet 1 tab PO DAILY Qty: 30 0RF Continued ascorbic acid (vitamin C) 1,000 mg tablet extended release 1,000 mg PO DAILY aspirin [Luis Felipe Low Dose Aspirin] 81 mg tablet,delayed release (DR/EC) 81 mg PO QDAY lansoprazole [Prevacid] 30 mg capsule,delayed release(DR/EC) 30 mg PO PRN PRN (Reason: GERD) fluticasone propion-salmeterol [Advair Diskus] 500-50 mcg/dose blister with device 1 inh INHALATION DAILY cholecalciferol (vitamin D3) 25 mcg (1,000 unit) capsule 25 mcg PO DAILY escitalopram oxalate 10 mg tablet 10 mg PO DAILY cyanocobalamin (vitamin B-12) 1,000 MCG capsule 1,000 mcg PO DAILY lovastatin 40 mg Tablet 40 mg PO BID hydrochlorothiazide 25 mg tablet 25 mg PO QDAY lisinopril 40 mg tablet 40 mg PO QDAY (DME) insulin syringe-needle U-100 [BD Insulin Syringe Ultra-Fine] 0.3 mL 31 gauge x 5/16 syringe See Rx Instructions .ROUTE .MEDSUPPLY Qty: 20 5RF Rx Instructions: As directed (DME) Accu-Chek Guide test strips Strip See Rx Instructions .ROUTE .MEDSUPPLY Qty: 450 3RF Rx Instructions: 5 times daily (DME) Accu-Chek Guide test strips Strip See Rx Instructions .ROUTE .MEDSUPPLY Qty: 450 3RF Rx Instructions: Guidelink- use to test 5 times a day Novolog U-100 Insulin aspart 100 unit/mL solution See Rx Instructions SC QDAY Qty: 50 11RF Dose Instruction: pt uses up to 50 U qd via pump SC QDAY; administer within 5-10 min before a meal/food and no later than at the start of the meal/snack Rx Instructions: pt uses up to 50 U qd via pump SC QDAY levothyroxine 100 mcg tablet 100 mcg PO DAILY Qty: 90 1RF Referrals / Follow Up: William Rodriguez MD [Primary Care Provider] - Disposition Disposition (needs filled in before D/C Order can be placed): Home, Self Care
--- NOTE | 2022-02-23 12:19 | DS.PCM_ITS ---
Providers Date of Admission: 02/21/22 Primary Care Physician: Dr. William Rodriguez MD Reason For Visit: ACUTE ALCOHOL WITHDRAWL Diagnosis Discharge Diagnosis (1) Alcohol withdrawal: Status: Acute Code(s): F10.939 - Alcohol use, unspecified with withdrawal, unspecified Qualifiers: Complication of substance-induced condition: uncomplicated Qualified Code(s): F10.930 - Alcohol use, unspecified with withdrawal, uncomplicated Plan: Acute alcohol withdrawal Last drink was the 25th. Asymptomatic with the exception of grogginess due to the phenobarbital Thiamine and folate Patient established with [facility] and does have a sponsor. Patient to follow up with [facility] for outpt TMT services. (2) Diabetes: Status: Acute Code(s): E11.9 - Type 2 diabetes mellitus without complications Qualifiers: Diabetes mellitus type: type 1 Diabetes mellitus complication status: w ithout complication Qualified Code(s): E10.9 - Type 1 diabetes mellitus without complications Plan: Insulin pump resumed after being turned off Patient does not have her glucose monitor so we will check her with meals and at night. Plan Chronic issues: #Hypothyroidism: on synthroid #Hypertension: on lisinopril and HCTZ #Hyperlipidemia: on statin #Depression and anxiety: on sertraline and escitalopram DVT Prophylaxis:low risk, encourage to ambulate Medications at Discharge Home Medications ascorbic acid (vitamin C) 1,000 mg tablet,extended release 1,000 mg PO DAILY supplement 06/06/17 aspirin 81 mg tablet,delayed release (Luis Felipe Low Dose Aspirin) 81 mg PO QDAY [facility] 06/06/17 fluticasone 500 mcg-salmeterol 50 mcg/dose blistr powdr for inhalation (Advair Diskus) 1 inh inhalation DAILY asthma 06/06/17 lansoprazole 30 mg capsule,delayed release (Prevacid) 30 mg PO PRN PRN GERD 06/06/17 cyanocobalamin (vitamin B-12) 1,000 mcg capsule 1,000 mcg PO DAILY vitamin 07/15/17 insulin syringe-needle U-100 0.3 mL 31 gauge x 5/16 (BD Insulin Syringe Ultra- Fine) #20 ea 07/10/20 blood sugar diagnostic (Accu-Chek Guide test strips) #450 ea 08/01/20 cholecalciferol (vitamin D3) 25 mcg (1,000 unit) capsule 25 mcg PO DAILY supplement 08/26/20 blood sugar diagnostic (Accu-Chek Guide test strips) #450 ea 07/17/21 hydrochlorothiazide 25 mg tablet 25 mg PO QDAY blood pressure 10/17/21 lisinopril 40 mg tablet 40 mg PO QDAY blood pressure 10/17/21 lovastatin 40 mg tablet 40 mg PO BID cholesterol 10/17/21 insulin aspart U-100 100 unit/mL subcutaneous solution (Novolog U-100 Insulin aspart) See Rx Instructions subcut QDAY e10.9 #50 mL 12/24/21 escitalopram oxalate 10 mg tablet 10 mg PO DAILY anxiety 02/11/22 levothyroxine 100 mcg tablet 100 mcg PO DAILY #90 tabs 02/15/22 multivitamin 1 tab PO DAILY #30 tabs 02/23/22 Hospital Course Operations None Procedures None Summary of Care Provided Minutes Spent on Discharge: 24 Hospital Course: This is a 57-year-old female presents with acute alcohol withdrawal. Patient was placed on phenobarbital. Patient's course was uncomplicated. Patient will be discharged today in stable condition. Patient will follow-up with [facility] for additional treatment and counseling. Patient is already involved with [facility] and already does have a sponsor. [facility] but patient stated he did not feel that was a good fit for her. Weight / BMI Weight Weight: 72.6 kg Body Mass Index (BMI) 27.4 ABG / Lab / Microbiology Data Result Diagrams: 02/21/22 17:23 02/22/22 09:23 Laboratory: Laboratory Results - last 24 hr 02/22/22 09:23: Magnesium 1.5 L 02/22/22 11:57: POC Glucose 129 H 02/22/22 16:44: POC Glucose 167 H 02/22/22 21:08: POC Glucose 116 H 02/23/22 06:43: POC Glucose 211 H D/C Instructions Discharge Diet: 2000 Calorie Control Diet Please Follow Up With: [employer] When: at your earliest convenience Meaningful Use Info Meaningful Use Diagnoses (Choose all that apply): None applicable Discharge Plan Admission Admit Date/Time: 02/21/22 17:47 Primary Reason for Your Visit: alcohol withdrawal Attending Provider: Cyrus Rea Primary Care Provider: William Rodriguez Consulting Providers: Daina Saucedo Discharge Orders/Prescriptions Prescriptions: New multivitamin Tablet 1 tab PO DAILY Qty: 30 0RF Continued ascorbic acid (vitamin C) 1,000 mg tablet extended release 1,000 mg PO DAILY aspirin [Luis Felipe Low Dose Aspirin] 81 mg tablet,delayed release (DR/EC) 81 mg PO QDAY lansoprazole [Prevacid] 30 mg capsule,delayed release(DR/EC) 30 mg PO PRN PRN (Reason: GERD) fluticasone propion-salmeterol [Advair Diskus] 500-50 mcg/dose blister with device 1 inh INHALATION DAILY cholecalciferol (vitamin D3) 25 mcg (1,000 unit) capsule 25 mcg PO DAILY escitalopram oxalate 10 mg tablet 10 mg PO DAILY cyanocobalamin (vitamin B-12) 1,000 MCG capsule 1,000 mcg PO DAILY lovastatin 40 mg Tablet 40 mg PO BID hydrochlorothiazide 25 mg tablet 25 mg PO QDAY lisinopril 40 mg tablet 40 mg PO QDAY (DME) insulin syringe-needle U-100 [BD Insulin Syringe Ultra-Fine] 0.3 mL 31 gauge x 5/16 syringe See Rx Instructions .ROUTE .MEDSUPPLY Qty: 20 5RF Rx Instructions: As directed (DME) Accu-Chek Guide test strips Strip See Rx Instructions .ROUTE .MEDSUPPLY Qty: 450 3RF Rx Instructions: 5 times daily (DME) Accu-Chek Guide test strips Strip See Rx Instructions .ROUTE .MEDSUPPLY Qty: 450 3RF Rx Instructions: Guidelink- use to test 5 times a day Novolog U-100 Insulin aspart 100 unit/mL solution See Rx Instructions SC QDAY Qty: 50 11RF Dose Instruction: pt uses up to 50 U qd via pump SC QDAY; administer within 5-10 min before a meal/food and no later than at the start of the meal/snack Rx Instructions: pt uses up to 50 U qd via pump SC QDAY levothyroxine 100 mcg tablet 100 mcg PO DAILY Qty: 90 1RF Referrals / Follow Up: William Rodriguez MD [Primary Care Provider] - Disposition Disposition (needs filled in before D/C Order can be placed): Home, Self Care Charges/Coding Visit Charges Inpatient E&M: 07690 Disch Hosp
[2022-02-23 12:25] LABS: Bedside Glucose 70 mg/dL (74-106)
== END 2022-02-23 13:39 | disposition home or self-care (01) | DRG 897 ==
LOC: ED 18:06 → MS3 18:26
PROVIDERS: Family Medicine; Admitting Provider Student in an Organized Health Care Education/Training Program; Emergency Provider Emergency Medicine; PCP Family Medicine
DX: F10.930 Alcohol use, unspecified with withdrawal, uncomplicated (principal); E03.9 Hypothyroidism, unspecified; E10.9 Type 1 diabetes mellitus without complications; Z79.4 Long term (current) use of insulin; J45.909 Unspecified asthma, uncomplicated; I10 Essential (primary) hypertension; F17.200 Nicotine dependence, unspecified, uncomplicated; E53.8 Deficiency of other specified B group vitamins; F41.9 Anxiety disorder, unspecified; Z78.0 Asymptomatic menopausal state; Z96.41 Presence of insulin pump (external) (internal); Z79.899 Other long term (current) drug therapy; Z79.82 Long term (current) use of aspirin; F32.A Depression, unspecified
CPT/HCPCS: 36415; 80048; 80053; 80307; 82077; 82962; 83735; 84100; 85025; 85610; 94640; 99251; 99284; 99406; J7030; A4216; G0463

== ENCOUNTER → 2022-07-06 | Outpatient (CLI) | payer OTHER, SELFPAY ==
[2022-07-06 13:00] LABS: AST(SGOT) 19 U/L (15-37); Alanine Aminotransfer ALT/SGPT 22 U/L (13-56); Albumin, Serum 3.8 g/dL (3.2-5.0); Alkaline Phosphatase 100 U/L (45-117); Anion Gap 5 (5-15); BUN 14 mg/dL (7-18); BUN/Creat Ratio 18.1 RATIO (10-20); Calcium,Total 9.8 mg/dL (8.5-10.1); Chloride 108 mmol/L (98-107); Cholesterol 178 mg/dL (200); Creatinine, Serum 0.78 mg/dL (0.55-1.02); EST Glomerular Filtration Rate 81 mL/min (>60); Est Glom Filt Rate - Afr Amer 98 mL/min (>60); Globulin 3.9 g/dL (2.2-4.2); Glucose 149 mg/dL (74-106); High Density Lipoprotein 70 mg/dL; Potassium 4.5 mmol/L (3.5-5.1); Protein, Total 7.7 g/dL (6.4-8.2); Sodium Level 137 mmol/L (136-145); T4 Free Direct 1.14 ng/dL (0.76-1.46); Thyroid Stim Hormone (TSH) 0.37 uIU/mL (0.358-3.74); Triglycerides 97 mg/dL; Very Low Density Lipoprotein 19 mg/dL (5-40)
[2022-07-06 13:01] LABS: Microalbumin,Random Urine 16.2 mg/L (NO RANGE EST.)
== END | disposition home or self-care (01) ==
LOC: BIMLAB 09:16
PROVIDERS: PCP Family Medicine; Referring Provider Internal Medicine Endocrinology, Diabetes & Metabolism; Visit Provider Internal Medicine Endocrinology, Diabetes & Metabolism
DX: E10.9 Type 1 diabetes mellitus without complications (principal); E03.8 Other specified hypothyroidism; E06.3 Autoimmune thyroiditis; I10 Essential (primary) hypertension; E78.2 Mixed hyperlipidemia; Z96.41 Presence of insulin pump (external) (internal)
CPT/HCPCS: 36415; 80053; 80061; 82043; 82570; 84439; 84443

== ENCOUNTER 2022-07-26 06:11 | Day surgery (SDC) | payer OTHER, SELFPAY ==
--- NOTE | 2022-07-26 | COLBX_PTH ---
PATIENT: KADIE PRADHAN LOC: EN U#:[id number] AGE/SX: 57/F ROOM: RE07/26/[address]: Dr. Whitney Barrientos MD : 1965 BED: DIS: 07/26/2022 SPEC #: [id number] RECD: 07/26/22 14:37 STATUS: GEETA REAmerico #: [id number] TC: 07/26/22 00:[address]: Whitney Barrientos DEPT: SURGICAL PATHOLOGY RECD BY: Onesimo Mallory ENTERED: 07/27/22 09:09 SP TYPE: COLON BX OTHR DR: Dr. William Rodriguez MD Tissues: A - Ascending colon B - Rectum, NOS Procedures: Trichrome (control) Special Stain Group II Surgery Specimen Level IV HEADER OPERATION: Colonoscopy (MAC) PRE-OP DIAGNOSIS: History of adenomatous colonic polyps TISSUE SUBMITTED: A ? Ascending colon lipoma biopsy, B ? Rectal polyps biopsy MICROSCOPIC DIAGNOSIS A. Ascending colon lipoma, biopsy: Fragments of colonic mucosa with changes consistent with collagenous colitis. Focal increase of submucosal fat suggestive of submucosal lipoma. See comment. B. Rectal polyps, biopsy: Fragments of colonic mucosa with changes consistent with lymphocytic (microscopic) colitis and collagenous colitis. See comment. SJ:rg 07/28/2022 COMMENT A & B. Trichrome stain with matched control is used in the evaluation of the specimen and shows focal thickening of subepithelial collagen band. Correlation with clinical, endoscopic findings and appropriate follow up are necessary. MICROSCOPIC DESCRIPTION Slides are reviewed. GROSS DESCRIPTION A - Received in fixative is one container labeled with the patient's name and designated ascending colon lipoma biopsy. The specimen consists of multiple irregular fragments of light fitzpatrick soft tissue that in aggregate measure 1 x 0.5 x 0.1 cm. The specimen is totally submitted in one cassette. B - Received in fixative is one container labeled with the patient's name and designated rectal polyp biopsy. The specimen consists of multiple irregular fragments of light fitzpatrick soft tissue that in aggregate measure 1 x 0.5 x 0.1 cm. The specimen is totally submitted in one cassette. / WEI:tabitha 07/27/2022 TC:3 CPT: 71331 x2, 41876 x2
[2022-07-26] MEDS: Lactated Ringers 1,000 ML 15 ML IV (06:39)
[2022-07-26 06:41] VITALS: BP 103/60; PULSE 93; RESP 18; TEMP 36.7; O2SAT 97; BMI 26.0
--- NOTE | 2022-07-26 07:15 | HP.PCM_ITS ---
History and Physical Date of Admission: 07/26/22 Date of Service:? 07/09/22 MR#: [id number] Acct: [id number] Name:KADIE MCFARLAND Rep #: [id number] : 1965 ? ? Provider: Dr. Whitney Barrientos MD Age/Sex:? 57/F ? ? Location: [facility] Status: Signed Intake Vital Signs ? 02/21/2219:25 07/09/2307:36 Height 5 ft 4 in 5 ft 4 in Weight: ? 153 lb BMI ? 26.2 BP ? 131/88 H Blood Pressure Location ? Rt brachial Position ? Sitting Respiration ? 17 Pulse ? 54 L Pulse Source ? Monitor Temp ? 97.3 F L Temp Source ? Temporal Pulse Oximetry (%) ? 96 Oxygen Delivery Method ? room air Intake Visit Reasons:?CSCOPE Chief Complaint: cscope Is patient in pain?: No Allergies No Known Allergies Allergy (Verified 07/09/22 08:39) Medications ascorbic acid (vitamin C) 1,000 mg tablet,extended release 1,000 mg PO DAILY supplement 06/06/17 [History Confirmed 07/09/22] aspirin 81 mg tablet,delayed release (Luis Felipe Low Dose Aspirin) 81 mg PO QDAY heart health 06/06/17 [History Confirmed 07/09/22] fluticasone 500 mcg-salmeterol 50 mcg/dose blistr powdr for inhalation (Advair Diskus) 1 inh inhalation DAILY asthma 06/06/17 [History Confirmed 07/09/22] lansoprazole 30 mg capsule,delayed release (Prevacid) 30 mg PO PRN PRN GERD 06/06/17 [History Confirmed 07/09/22] cyanocobalamin (vitamin B-12) 1,000 mcg capsule 1,000 mcg PO DAILY vitamin 07/15/17 [History Confirmed 07/09/22] insulin syringe-needle U-100 0.3 mL 31 gauge x 5/16 (BD Insulin Syringe Ultra- Fine) #20 ea 07/10/20 [Rx Confirmed 07/09/22] cholecalciferol (vitamin D3) 25 mcg (1,000 unit) capsule 25 mcg PO DAILY supplement 08/26/20 [History Confirmed 07/09/22] hydrochlorothiazide 25 mg tablet 25 mg PO QDAY blood pressure 10/17/21 [History Confirmed 07/09/22] lovastatin 40 mg tablet 40 mg PO BID cholesterol 10/17/21 [History Confirmed 07/09/22] insulin aspart U-100 100 unit/mL subcutaneous solution (Novolog U-100 Insulin aspart) See Rx Instructions subcut QDAY e10.9 #50 mL 12/24/21 [Rx Confirmed 07/09/22] escitalopram oxalate 10 mg tablet 10 mg PO DAILY anxiety 02/11/22 [History Co nfirmed 07/09/22] multivitamin 1 tab PO DAILY #30 tabs 02/23/22 [Rx Confirmed 07/09/22] lisinopril 40 mg tablet 40 mg PO QDAY blood pressure #90 tabs 03/10/22 [Rx Confirmed 07/09/22] blood sugar diagnostic (Accu-Chek Guide test strips) #450 ea 05/11/22 [Rx Confirmed 07/09/22] levothyroxine 100 mcg tablet 100 mcg PO DAILY #90 tabs 07/08/22 [Rx Confirmed 07/09/22] PFSH Medical History?(Updated 07/10/22 @ 07:[address] 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 S/P appendectomy S/P colonoscopy S/P hysterectomy S/P oophorectomy Family History? Father Malignant tumor of kidney ArthritisGrandfather Colon cancer Social History? Smoking Status:? Light Smoker (<10/day) second hand exposure:? No alcohol intake:? never substance use type:? does not use caffeine:? Yes what type of physical activity do you participate in:? walking frequency:? 1-2 times per week seatbelt use:? always HPI HPI HPI: 57 y/o F presents for colonoscopy, pt last colonoscopy was last year and she had 10+ polyps and one was 10 mm.? Pt has BM daily, no blood; denies abd p ain/n/v/GERD. denies FH of colon cancer. ROS General General: No weight change, appetite, fatigue, colon cancer or breast cancer HEENT HEENT: No difficulty swallowing, eye injury, eye surgery, swollen glands or hoarseness Endo Endocrine: Yes thyroid disease and diabetes mellitus; No thyroid cancer, Hair loss, heat intolerance or cold intolerance Skin Skin: No rash or changing moles Musc Musculoskeletal: No back problems, arthritis, rheumatoid arthritis, gout or joint pain Cardio Cardiovascular: No murmur, pacemaker, heart disease, atrial fibrillation, high blood pressure, heart attack, heart stent, palpitations, shortness of breat with exertion or chest pain Psych Psychiatric: Yes anxiety; No depression or hearing voices Resp Respiratory: No shortness of breath, No sleep apnea, No cough, No COPD, No asthma, No emphysema and No wheezing Gastro Gastrointestinal: No abdominal pain, No nausea or vomiting, No diarrhea, No constipation, No blood in stool, No acid reflux, No hemorrhoids, No ulcers, No gallbladder problem and No black,tarry stools Chace Hematologic: No blood thinners, No blood disorders, No bleeding, No anemia and No blood clots Neuro Neurologic: No numbness and No tingling Exam Const General: cooperative, healthy appearing and no acute distress HENMT Head: normal to inspection Resp Effort & Inspection: normal respiratory effort Cardio Rate: regular rate GI Inspection: non-distended Palpation: soft, no guarding and nontender Skin General: no rashes or lesions noted Neuro General: patient oriented x3 Extrem General: no clubbing, cyanosis or edema Psych Affect: normal affect Assessment and Plan Assessment and Plan (1) Hx of adenomatous colonic polyps: ?Status:?Acute Plan I have discussed the above with the patient. I have offered the patient colonoscopy for evaluation. I have explained the risks/benefits of the procedure and described the procedure.? I have discussed the risks with the patient, including but not limited to:? infection, bleeding, perforation of the GI tract requiring emergency surgery, inability to complete the procedure, injury to any internal organs, complications of anesthesia, etc. - the patient understands and agrees to proceed. I have answered all the patient's questions to the patient's satisfaction and the patient has no further questions. The patient has been given instructions for the colon cleansing preparation. one day of clears miralax/dulcolax split prep. Coding Level of Care Code Off vis,est,level 3 Diagnoses Hx of adenomatous colonic polyps? Z86.010 07/10/22 0715 <Electronically signed by Whitney Barrientos MD> Date Whitney Barrientos MD
[2022-07-26 08:10] VITALS: BP 103/60; BP 96/61; PULSE 81; RESP 16; TEMP 36.7; O2SAT 100
[2022-07-26 08:15] VITALS: BP 103/60; BP 94/66; PULSE 77; RESP 16; O2SAT 98
--- NOTE | 2022-07-26 08:17 | OP.COLON_ITS ---
Patient Name: Mayi Mata Procedure Date: 07/26/2022 7:30 AM Date of : 1965 Age: 57 Procedure: Colonoscopy Indications: High risk colon cancer surveillance: Personal history of adenoma (10 mm or greater in size), High risk colon cancer surveillance: Personal history of multiple (3 or more) adenomas Providers: Whitney Barrientos MD Referring MD: Whitney Barrientos MD Medicines: Monitored Anesthesia Care Patient Profile: This is a 57 year old female. Last Colonoscopy: 1 year ago. Complications: No immediate complications. Procedure: Pre-Anesthesia Assessment: - Prior to the procedure, a History and Physical was performed, and patient medications and allergies were reviewed. The patient's tolerance of previous anesthesia was also reviewed. The risks and benefits of the procedure and the sedation options and risks were discussed with the patient. All questions were answered, and informed consent was obtained. Prior Anticoagulants: The patient has taken no previous anticoagulant or antiplatelet agents. ASA Grade Assessment: Per anesthesia. After reviewing the risks and benefits, the patient was deemed in satisfactory condition to undergo the procedure. After I obtained informed consent, the scope was passed under direct vision. Throughout the procedure, the patient's blood pressure, pulse, and oxygen saturations were monitored continuously. The colonoscope was introduced through the anus and advanced to the cecum, identified by the appendiceal orifice, ileocecal valve and palpation. The colonoscopy was somewhat difficult due to a tortuous colon. Successful completion of the procedure was aided by applying abdominal pressure. The patient tolerated the procedure well. The quality of the bowel preparation was good. Scope In: 7:35:31 AM Scope Withdrawal Time 0 hours 16 minutes 12 seconds Scope Out: 8:04:54 AM Total Procedure Duration Time 0 hours 29 minutes 23 seconds Findings: Hemorrhoids were found on perianal exam. Non-bleeding internal hemorrhoids were found. The hemorrhoids were Grade I (internal hemorrhoids that do not prolapse). Multiple small-mouthed diverticula were found in the sigmoid colon. Four sessile polyps were found in the rectum. The polyps were less than 5 mm in size. These polyps were removed with a cold biopsy forceps. Resection and retrieval were complete. There was a small lipoma, in the ascending colon. Biopsies were taken with a cold forceps for histology. Impression: - Hemorrhoids found on perianal exam. - Non-bleeding internal hemorrhoids. - Diverticulosis in the sigmoid colon. - Four less than 5 mm polyps in the rectum, removed with a cold biopsy forceps. Resected and retrieved. - Small lipoma in the ascending colon. Biopsied. Recommendation: - Discharge patient to home. - High fiber diet. - Continue present medications. - Await pathology results. - Repeat colonoscopy in 5 years for surveillance based on pathology results. Procedure Code(s): --- Professional --- 61474, PT, Colonoscopy, flexible; with biopsy, single or multiple Diagnosis Code(s): --- Professional --- K64.0, First degree hemorrhoids K62.1, Rectal polyp D17.5, Benign lipomatous neoplasm of intra-abdominal organs Z86.010, Personal history of colonic polyps K57.30, Diverticulosis of large intestine without perforation or abscess without bleeding CPT copyright 2017 [employer]. All rights reserved. The codes documented in this report are preliminary and upon storage brine worker review may be revised to meet current compliance requirements. MD Whitney Granados MD 07/26/2022 8:17:02 AM This report has been signed electronically. Number of Addenda: 0 Note Initiated On: 07/26/2022 7:30 AM
--- NOTE | 2022-07-26 08:18 | OP.CCLET_ITS ---
07/26/2022 Willima Rodriguez Re : Colonoscopy procedure for Mayi Rodriguez This procedure was performed on Tuesday, July 26, 2022. My impressions and recommendations are as follows: Impressions : - Hemorrhoids found on perianal exam. - Non-bleeding internal hemorrhoids. - Diverticulosis in the sigmoid colon. - Four less than 5 mm polyps in the rectum, removed with a cold biopsy forceps. Resected and retrieved. - Small lipoma in the ascending colon. Biopsied. Recommendations : - Discharge patient to home. - High fiber diet. - Continue present medications. - Await pathology results. - Repeat colonoscopy in 5 years for surveillance based on pathology results. My findings are described in the full procedure note, which is enclosed. If I can be of further assistance, please feel free to contact me at Doctor phone number(s): , Work: . Sincerely, MD Whitney Granados MD 07/26/2022 8:17:02 AM This report has been signed electronically.
[2022-07-26 08:20] VITALS: BP 103/60; BP 106/69; PULSE 77; RESP 16; O2SAT 99
[2022-07-26 08:28] VITALS: BP 100/56; BP 103/60; PULSE 77; RESP 16; TEMP 36.7; O2SAT 99
[2022-07-26 08:48] VITALS: BP 103/60
== END 2022-07-26 08:53 | disposition home or self-care (01) ==
LOC: EN 06:11 → AC 06:12
PROVIDERS: PCP Family Medicine; Referring Provider Family Medicine; Visit Provider Surgery
PROC: 0DJD8ZZ Inspection of Lower Intestinal Tract, Via Natural or Artificial Opening Endoscopic (ICD-10-PCS; CPT 45378; principal; 2022-07-26 07:25)
DX: Z12.11 Encounter for screening for malignant neoplasm of colon (principal); E10.9 Type 1 diabetes mellitus without complications; K62.1 Rectal polyp; D17.5 Benign lipomatous neoplasm of intra-abdominal organs; K57.30 Diverticulosis of large intestine without perforation or abscess without bleeding; F17.200 Nicotine dependence, unspecified, uncomplicated; K64.0 First degree hemorrhoids; I10 Essential (primary) hypertension; E78.2 Mixed hyperlipidemia; E03.9 Hypothyroidism, unspecified; Z96.41 Presence of insulin pump (external) (internal); Z79.82 Long term (current) use of aspirin; Z79.890 Hormone replacement therapy; Z79.899 Other long term (current) drug therapy; Z86.010 Personal history of colon polyps; Z80.0 Family history of malignant neoplasm of digestive organs
CPT/HCPCS: 45380; 88305; 88313; J7120; J2405

== ENCOUNTER → 2022-09-02 | Outpatient (CLI) | payer OTHER, SELFPAY ==
--- NOTE | 2022-09-02 16:10 | BI_ITS ---
MAMMOGRAPHY - BILATERAL SCREENING REASON FOR EXAM: Female, 57 years old. Routine annual screening examination. PERTINENT HISTORY: Non-contributory. TECHNIQUE: Digital bilateral breast tamara (3D mammographic acquisition) in the CC and MLO projections. 2-D mediolateral oblique (MLO) and craniocaudad (CC) views of both breasts were obtained. CAD: Full Field Digital Mammography with Computer Added Detection was performed. COMPARISON: Comparison is made with prior study dated August 07, 2021 and July 03, 2020. FINDINGS: Breast Composition: The breasts are extremely dense, which lowers the sensitivity of mammography. There are no dominant masses or suspicious calcifications. No other significant abnormalities are identified. There has been no significant change since the prior study. BI/SCRN MAMM (CAD)W/TAMARA BILAT IMPRESSION: Stable bilateral screening mammogram. Yearly follow-up mammogram recommended. (A) ASSESSMENT CATEGORY: BIRADS Category 1: Negative. A letter regarding these results will be sent to the patient by the facility within 30 days. Approximately 10% of breast cancers are not detected by mammography. A normal mammogram should not delay biopsy of a clinically suspicious abnormality. [id number] Electronically Signed: Brant Thomas MD at 7:58 EST ,
== END | disposition home or self-care (01) ==
LOC: OPBI 16:09
PROVIDERS: PCP Family Medicine; Visit Provider Student in an Organized Health Care Education/Training Program
DX: Z12.31 Encounter for screening mammogram for malignant neoplasm of breast (principal)
CPT/HCPCS: 77063; 77067

== ENCOUNTER → 2022-12-03 | Outpatient (CLI) | payer OTHER, SELFPAY ==
[2022-12-03 16:47] LABS: Hemoglobin A1c 8.2 % (3.8-5.6)
== END | disposition home or self-care (01) ==
LOC: LAB 16:07
PROVIDERS: PCP Family Medicine; Visit Provider Internal Medicine Endocrinology, Diabetes & Metabolism
DX: E10.9 Type 1 diabetes mellitus without complications (principal)
CPT/HCPCS: 36415; 83036

== ENCOUNTER → 2023-09-19 | Outpatient (CLI) | payer OTHER, SELFPAY ==
[2023-09-19 09:06] LABS: Vitamin D,25 Hydroxy 63.9 ng/mL
[2023-09-19 09:27] LABS: AST(SGOT) 30 U/L (15-37); Alanine Aminotransfer ALT/SGPT 27 U/L (13-56); Albumin, Serum 3.7 g/dL (3.2-5.0); Alkaline Phosphatase 84 U/L (45-117); Anion Gap 8 (5-15); BUN 9 mg/dL (7-18); BUN/Creat Ratio 13.2 RATIO (10-20); Calcium,Total 9.4 mg/dL (8.5-10.1); Chloride 109 mmol/L (98-107); Cholesterol 174 mg/dL (200); Creatinine, Serum 0.68 mg/dL (0.55-1.02); EST Glomerular Filtration Rate 94 mL/min (>60); Est Glom Filt Rate - Afr Amer 114 mL/min (>60); Globulin 3.6 g/dL (2.2-4.2); Glucose 115 mg/dL (74-106); High Density Lipoprotein 55 mg/dL; Protein, Total 7.3 g/dL (6.4-8.2); Sodium Level 140 mmol/L (136-145); T4 Free Direct 1.21 ng/dL (0.76-1.46); Thyroid Stim Hormone (TSH) 1.28 uIU/mL (0.358-3.74); Triglycerides 186 mg/dL; Very Low Density Lipoprotein 37 mg/dL (5-40)
[2023-09-19 11:41] LABS: Microalbumin,Random Urine 8.5 mg/L (NO RANGE EST.); Microalbumin:Creatinine Ratio 7.9 mg/g CRE (<30 mg/g CRE)
== END | disposition home or self-care (01) ==
PROVIDERS: PCP Family Medicine; Referring Provider Internal Medicine Endocrinology, Diabetes & Metabolism; Visit Provider Internal Medicine Endocrinology, Diabetes & Metabolism
DX: E10.9 Type 1 diabetes mellitus without complications (principal); E03.8 Other specified hypothyroidism; E06.3 Autoimmune thyroiditis; I10 Essential (primary) hypertension; E78.2 Mixed hyperlipidemia; E55.9 Vitamin D deficiency, unspecified
CPT/HCPCS: 36415; 80053; 80061; 82043; 82306; 82570; 84439; 84443

== ENCOUNTER → 2024-06-18 | Outpatient (CLI) | payer OTHER, SELFPAY ==
[2024-06-18 08:56] LABS: ALB/GLOB Ratio 1.1 RATIO (0.9-2.4); AST(SGOT) 41 U/L (15-37); Alanine Aminotransfer ALT/SGPT 46 U/L (13-56); Albumin, Serum 3.8 g/dL (3.2-5.0); Alkaline Phosphatase 95 U/L (45-117); Anion Gap 9 (5-15); BUN 8 mg/dL (7-18); BUN/Creat Ratio 10.1 RATIO (10-20); Calcium,Total 9.6 mg/dL (8.5-10.1); Chloride 99 mmol/L (98-107); Cholesterol 164 mg/dL (200); Creatinine, Serum 0.79 mg/dL (0.55-1.02); EST Glomerular Filtration Rate 79 mL/min (>60); Est Glom Filt Rate - Afr Amer 95 mL/min (>60); Globulin 3.6 g/dL (2.2-4.2); Glucose 144 mg/dL (74-106); High Density Lipoprotein 99 mg/dL; Potassium 3.8 mmol/L (3.5-5.1); Protein, Total 7.4 g/dL (6.4-8.2); Sodium Level 134 mmol/L (136-145); Thyroid Stim Hormone (TSH) 0.025 uIU/mL (0.358-3.740); Triglycerides 105 mg/dL; Very Low Density Lipoprotein 21 mg/dL (5-40)
[2024-06-18 10:30] LABS: Microalbumin,Random Urine 20.5 mg/L (NO RANGE EST.); Microalbumin:Creatinine Ratio 6.1 mg/g CRE (<30 mg/g CRE)
== END | disposition home or self-care (01) ==
LOC: LAB 07:59
PROVIDERS: PCP Family Medicine; Referring Provider Internal Medicine Endocrinology, Diabetes & Metabolism; Visit Provider Internal Medicine Endocrinology, Diabetes & Metabolism
DX: E10.9 Type 1 diabetes mellitus without complications (principal); E06.3 Autoimmune thyroiditis; E03.8 Other specified hypothyroidism; I10 Essential (primary) hypertension; E78.2 Mixed hyperlipidemia; E55.9 Vitamin D deficiency, unspecified; Z96.41 Presence of insulin pump (external) (internal)
CPT/HCPCS: 36415; 80053; 80061; 82043; 82306; 82570; 84443

== ENCOUNTER → 2025-06-06 | Outpatient (CLI) | payer OTHER, SELFPAY ==
--- OUTSIDE RECORDS SUMMARY | 2025-06-06 09:13 | XMS RPT_ITS | CCD ---
Author Organization [facility] Care Team Providers Care Tower Technician Name Role Phone Angela Chi NP Unavailable Nani Coburn Unavailable Unavailable William Steinberg MD Primary Care Provider Raphael Chi Unavailable Dr. William Steinberg Primary Care Provider Dr. William Steinberg Referring Provider Dr. Whitney Barrientos Attending Provider Dr. Whitney Barrientos Other Provider Dr. Cristobal Engel Attending Provider Dr. Meghan Abrams Emergency Provider Dr. Mor Deal Admit Provider Dr. Mor Deal Attending Provider Dr. Mor Deal Other Provider Dr. Daina Saucedo Attending Provider Dr. Daina Saucedo Other Provider William Steinberg MD Primary Care Provider Raphael Chi Unavailable Dr. William Steinberg Primary Care Provider Dr. William Steinberg Referring Provider Dr. Cristobal Engel Attending Provider Dr. Jorgito Mustafa Emergency Provider [phone] Daina Saucedo Admit Provider Lewis, Dr. Daina Lowe Other Provider Dr. Cyrus Rea Attending Provider Dr. Cyrus Rea Other Provider William Steinberg MD Primary Care Provider Raphael Chi Unavailable William Steinberg MD Primary Care Provider Raphael Chi Unavailable Maryan, Dr. Thomas Primary Care Provider Maryan, Dr. Thomas Referring Provider Dr. Cristobal Engel Attending Provider Dr. Whitney Barrientos Attending Provider Iliana, Dr. Olson Other Provider Maryan, Dr. Thomas Primary Care Provider [place], Dr. Thomas Referring Provider Dr. Cristobal Engel Attending Provider Dr. Whitney Barrientos Attending Provider Iliana, Dr. Olson Other Provider Maryan, Dr. Thomas Primary Care Provider [place], Dr. Thomas Referring Provider Dr. Cristobal Engel Attending Provider Raphael Chi Unavailable William Steinberg MD Primary Care Provider Haagen CELL ROOM SUPERVISOR.POKER MANAGER, Karmen Unavailable Suppan CELL ROOM SUPERVISOR.PAM, Trudi A Unavailable Suppan CELL ROOM SUPERVISOR.POKER MANAGER, Trudi A Unavailable [phone] Suppan CELL ROOM SUPERVISOR.PAM, Trudi A Unavailable [phone] MARY LOU HWANG Attending Unavailable MARY LOU HWANG Admitting Unavailable WILLIAM STEINBERG Primary Care Unavailable Dr. William Steinberg MD Primary Care Provider Dr. William Steinberg MD Referring Provider Dr. Cristobal Engel MD Attending Provider Cristobal Engel Attending Unavailable [place], Referring Unavailable [place], Primary Care Unavailable Cristobal Engel Attending Unavailable Maryan, Referring Unavailable [place], Primary Care Unavailable Maryan, Primary Care Unavailable , Cristobal Referring Unavailable Cristobal Engel Attending Unavailable [place], Primary Care Unavailable Cristobal Engel Attending Unavailable [place], Referring Unavailable BALLMARY LOU Referring Unavailable MARYAN, J Primary Care Unavailable MARYAN, J Primary Care Unavailable MARYAN, J Referring Unavailable MARYAN, J Primary Care Unavailable SELF Referring Unavailable MARYAN, J Attending Unavailable MARYAN, J Primary Care Unavailable MARYAN, J Referring Unavailable JAIDEN, MARY LOU Attending Unavailable JAIDEN, MARY LOU Referring Unavailable MARYAN, J Primary Care Unavailable JAIDEN, MARY LOU Referring Unavailable MARYAN, WILLIAM Glez Primary Care Unavailable PEACE CUEVAS Referring Unavailable MARYAN, J Primary Care Unavailable MARY LOU HWANG Attending Unavailable MARYAN, J Primary Care Unavailable CUEVAS, PEACE Referring Unavailable MARYAN, J Primary Care Unavailable MARYAN, J Primary Care Unavailable MARYAN, J Primary Care Unavailable REKHA FARRELL Attending Unavailable MARYAN, J Primary Care Unavailable CUEVAS, PEACE Referring Unavailable MARYAN, J Primary Care Unavailable MARYAN, J Referring Unavailable MARYAN, J Primary Care Unavailable MARY LOU HWANG Attending Unavailable MARYAN, J Referring Unavailable CUEVAS, PEACE Attending Unavailable MARYAN, J Primary Care Unavailable Allergies Allergy Classification Reported Allergen(s) Allergy Type Date of Onset Reaction(s) Facility Serotonin Reuptake Inhibitors (SSRIs) (1 source) Sertraline Drug Allergy 12-22-2007 Diarrhea [facility] Work Phone: (2 sources) Citalopram Drug Allergy 12-05-2007 Diarrhea [facility] Work Phone: (20 sources) Sertraline; Translations: [SERTRALINE] Drug Allergy 12-22-2007 Diarrhea [facility] Work Phone: Medications Current Medications Medication Drug Class(es) Dates Sig (Normalized) Sig (Original) acetaminophen 325 mg / oxyCODONE hydrochloride 5 mg oral tablet (1 source) Opioid Agonist Start: 10-25-2024 End: 11-01-2024 take 1-2 tablets by mouth every six hours as needed for pain oxyCODONE-acetami nophen (PERCOCET) 5-325 mg tablet Indications: Parotid mass Take 1-2 tablets by mouth every 6 hours as needed for pain for up to 7 days. 15 tablet 10/25/2024 11/01/2024 Active [id number] 200 actuat albuterol 0.09 mg/actuat metered dose inhaler (20 sources) beta2-Adrenergic Agonist Start: 11-11-2017 take 2 puff(s) by inhalation every four hours as needed for wheezing albuterol HFA (PROVENTIL HFA, VENTOLIN HFA) 90 mcg/actuation inhaler Inhale 2 Puffs as instructed every 4 hours as needed for Wheezing/Shortnes s of Breath. 1 Inhaler 3 11/11/2017 Active Comment on above: Inhale 2 Puffs as in structed every 4 hours as needed for Wheezing/Shortness of Breath. ascorbic acid 1000 mg extended release oral tablet (20 sources) Vitamin C Start: 06-06-2017 take 1 tablet by mouth once daily Ascorbic Acid (Vitamin C) 1,000 mg tablet extended release Active 1000 mg PO DAILY June 06, 2017 1:00am Start: 03-19-2005 End: 10-11-2024 take 1 tablet by mouth once daily VITAMIN C 500 MG ORAL TAB Take one(1) tablet daily. 0 03/19/2005 10/11/2024 Discontinued Comment on above: Take one(1) tablet d aily. aspirin 81 mg delayed release oral tablet (20 sources) Platelet Aggregation Inhibitor, Nonsteroidal Anti-inflammatory Drug Start: 06-06-2017 Aspirin (Luis Felipe Low Dose Aspirin) 81 mg tablet,delayed release (DR/EC) Active 81 mg PO daily June 06, 2017 1:00am Start: 03-19-2005 take 1 tablet by evans th once daily ASPIRIN 81 MG ORAL TAB Take one(1) tablet daily. 0 03/19/2005 Active take 1 tablet by evans th once daily ADULT ASPIRIN EC LOW STRENGTH 81 MG TBEC One tablet by mouth daily ASPIRIN [id number] Angela Chi SOD STRIPPER Comment on above: Take one(1) tablet d aily. cephalexin 250 mg oral capsule (3 sources) Cephalosporin Antibacterial Start: 5 End: 5 take 1 capsule by mouth four times daily cephALEXin (KEFLEX) 250 mg capsule Take 1 capsule by mouth four times daily for 7 days. 28 capsule 10/25/2024 11/01/2024 Active Start: 09-24-2022 End: 10-01-2022 take 1 capsule by mouth four times daily cephALEXin (KEFLEX) 500 mg capsule Take 1 capsule by mouth four times daily for 7 days. 28 capsule 0 09/24/2022 10/01/2022 Active Comment on above: Take 1 capsule by mo [facility] four times daily for 7 days. COMPOUNDED PRESCRIPTION (20 sources) Start: 06-29-2017 COMPOUNDED PRESCRIPTION 3cc syringe and 25g 1 needle for B12 injections. 50 Each 3 06/29/2017 Active Start: 03-22-2013 COMPOUNDED PRE SCRIPTION Metronic Minimed Insulin Pump Supples And life scan testing supplies use as directed 30 Each 3 03/22/2013 Active Comment on above: Metronic Minimed Ins ulin Pump Supples And life scan testing supplies use as directed 3cc syringe and 25g 1 needle for B12 injections. escitalopram 10 mg oral tablet (20 sources) Serotonin Reuptake Inhibitor Start: 2 End: 6 take 1 tablet by mouth once daily escitalopram oxalate (LEXAPRO) 10 mg tablet Take 1 tablet by mouth once daily. 90 tablet 3 09/25/2024 09/25/2025 Active Comment on above: Take 1 tablet by [facility] once daily. estradiol (E2) emollient cream 0.2 mg/gram (CPD) (20 sources) Start: estradiol (E2) emollient cream 0.2 mg/gram (CPD) Indications: Atrophic vaginitis Insert fingertip amount vaginally every other day at bedtime 20 g 3 04/29/2023 Active Start: 08-03-2022 End: 04-29-2023 estradiol (E2) emollient cre am 0.2 mg/gram (CPD) Indications: Atrophic vaginitis Insert fingertip amount vaginally every other day at bedtime 20 g 3 08/03/2022 04/29/2023 Discontinued Start: 08-03-2022 estradiol (E2) emollient cream 0.2 mg/gram (CPD) Indications: Atrophic vaginitis Insert fingertip amount vaginally every other day at bedtime 20 g 3 08/03/2022 Active Start: 09-15-2021 End: 08-03-2022 estradiol (E2) emollient cre am 0.2 mg/gram (CPD) Indications: Atrophic vaginitis Insert fingertip amount vaginally every other day at bedtime 20 g 3 09/15/2021 08/03/2022 Discontinued Start: 09-15-2021 estradiol (E2) emollient cream 0.2 mg/gram (CPD) Indications: Atrophic vaginitis Insert fingertip amount vaginally every other day at bedtime 20 g 3 09/15/2021 Active Start: 07-10-2021 End: 09-15-2021 estradiol (E2) emollient cre am 0.2 mg/gram (CPD) Indications: Atrophic vaginitis Insert fingertip amount vaginally every other day at bedtime 20 g 0 07/10/2021 09/15/2021 Discontinued Comment on above: Insert fingertip jaimie unt vaginally every other day at bedtime Estradiol / Estriol (19 sources) Estrogen Start: End: estradiol 0.01% estriol 0.01% cream (CPD) Use vaginally two times a week. 40 g 3 10/04/2023 10/03/2024 Active Comment on above: Use vaginally two ti mes a week. fluticasone / salmeterol (20 sources) Corticosteroid, beta2-Adrenergic Agonist Start: take 1 puff(s) by inhalation twice daily fluticasone-salmete rol (WIXELA INHUB) 500-50 mcg/dose dsdv Inhale 1 puff as instructed two times a day. 180 each 3 11/20/2024 Active Start: 01-30-2024 take 1 puff(s) by mo uth twice daily fluticasone-salmeterol (ADVAIR DISKUS) 500-50 mcg/dose dsdv Inhale 1 Puff as instructed two times a day. Rinse mouth after use. 180 Each 3 01/30/2024 Active Start: 01-30-2024 End: 01-29-2025 take 1 puff(s) by mouth twice daily fluticasone-salmeterol (ADVAIR DISKUS) 500-50 mcg/dose dsdv Inhale 1 Puff as instructed two times a day. Rinse mouth after use. 180 Each 3 01/30/2024 01/29/2025 Active Start: 06-11-2021 End: 01-30-2024 take 1 puff(s) by mouth twice daily fluticasone-salmeterol (ADVAIR DISKUS) 500-50 mcg/dose dsdv Inhale 1 Puff as instructed twice daily. Rinse mouth after use. 180 Each 3 06/11/2021 01/30/2024 Discontinued Start: 06-11-2021 take 1 puff(s) by mo ut twice daily fluticasone-salmeterol (ADVAIR DISKUS) 500-50 mcg/dose dsdv Inhale 1 Puff as instructed twice daily. Rinse mouth after use. 180 Each 3 06/11/2021 Active Start: 06-11-2021 End: 06-11-2022 take 1 puff(s) by mouth twice daily fluticasone-salmeterol (ADVAIR DISKUS) 500-50 mcg/dose dsdv Inhale 1 Puff as instructed twice daily. Rinse mouth after use. 180 Each 3 06/11/2021 06/11/2022 Active Start: 06-11-2021 End: 06-11-2022 take 1 puff(s) by mouth twice daily fluticasone-salmeterol (ADVAIR DISKUS) 500-50 mcg/dose dsdv Inhale 1 Puff as instructed twice daily. Rinse mouth after use. 180 Each 3 06/11/2021 06/11/2022 Active Start: 06-06-2017 Fluticasone Pr opion-Salmeterol (Advair Diskus) 500-50 mcg/dose blister with device Active 1 INH INHALATION DAILY June 06, 2017 3:14pm Start: 06-06-2017 End: 12-06-2022 Fluticasone Propion-Salmeter ol (Advair Diskus) 500-50 mcg/dose blister with device Discontinued 1 NMA INHALATION DAILY June 06, 2017 1:00am December 06, 2022 8:01am Start: 06-06-2017 End: 06-12-2023 Fluticasone Propion-Salmeter ol (Advair Diskus) 500-50 mcg/dose blister with device Discontinued 1 INH INHALATION DAILY June 06, 2017 1:00am December 06, 2022 8:01am Start: 06-06-2017 Fluticasone Pr opion-Salmeterol (Advair Diskus) 500-50 mcg/dose blister with device Active 1 INH INHALATION DAILY June 06, 2017 12:00am Start: 06-06-2017 Fluticasone Pr opion-Salmeterol (Advair Diskus) 500-50 mcg/dose blister with device Active 1 INH INHALATION DAILY June 06, 2017 1:00am ADVAIR DISKUS 50 0-50 MCG/DOSE AEPB Use once daily FLUTICASONE-SALMETEROL [id number] Angela Chi SOD STRIPPER Comment on above: Inhale 1 Puff as ins tructed twice daily. Rinse mouth after use. hydroCHLOROthiazide 25 mg oral tablet (20 sources) Thiazide Diuretic Start : 11-30 End: 12-03 take 1 tablet by mouth once daily hydroCHLOROthiazide 25 mg tablet Take 25 mg by mouth once daily. 03/13/2023 Active Comment on above: Take 1 tablet by evans th once daily. Take 25 mg by mouth once daily. Insulin Syringe-Needle U-100 (BD INSULIN SYRINGE) 1 mL 25 x 1 syrg (20 sources) Start : 01-14 Insulin Syringe-Needle U-100 (BD INSULIN SYRINGE) 1 mL 25 x 1 syrg Use one a month for b12 injections 3 Each 01/14/2022 Active Comment on above: Use one a month for b12 injections iv contrast (will be provided with radiology test) (1 source) Start : 09-18 End: 09-18 inject 1 dose intravenously once, then inject 1 dose intravenously once iv contrast (will be provided with radiology test) Indications: Neck mass Inject 1 Each intravenously one time only for [address] Neck W IVCON No IV access, insert saline lock prior to the sedation, infusion, injection for imaging exam. Discontinue saline lock post exam. If Pt. has a central line or IVAD, may access for administration according to line specific nursing protocol. Once exam is complete flush line and de-access according to line specific nursing protocol in the CT contrast administration guidelines link. 1 Each 09/18/2024 09/18/2024 Active lansoprazole 30 mg delayed release oral capsule (20 sources) Proton Pump Inhibitor Start : 02-28 End: 11-21 lansoprazole (PREVACID) 30 mg capsule TAKE NECESSARY 90 capsule 3 11/22/2023 Active Start: 06-06-2017 Lansoprazole ( Prevacid) 30 mg capsule,delayed release(DR/EC) Active 30 mg PO NEEDED as needed for GERD June 06, 2017 1:00am take 1 tablet by evans th once daily PREVACID 30 MG CPDR One tablet by mouth daily LANSOPRAZOLE [id number] Angela Chi SOD STRIPPER Comment on above: TAKE NECESSARY latanoprost 0.05 mg/ml ophthalmic solution (20 sources) Prostaglandin Analog Start: 03-18-20 latanoprost (XALATAN) 0.005 % ophthalmic solution 03/18/2023 Active levothyroxine sodium 0.1 mg oral tablet (20 sources) l-Thyroxine Start: 02-16-20 End: 09-14-19 take 1 tablet by mouth once daily Levothyroxine 100 mcg tablet Active 100 ug PO DAILY September 13, 2024 12:46pm Start: 02-15-2022 take 112 ug by mouth once vi y Levothyroxine Active 100 MCG PO DAILY February 15, 2022 12:00am discontinue 112 mcg rx Start: 10-17-2021 End: 02-15-2022 take 0.112 ug by mouth once daily Levothyroxine 88 mcg tablet Discontinued 0.112 ug PO DAILY October 17, 2021 11:32pm February 15, 2022 7:50am Start: 10-17-2021 End: 02-15-2022 take 0.112 ug by mouth once daily Levothyroxine Discontinued 0.112 MCG PO DAILY October 17, 2021 11:32pm February 15, 2022 7:50am Start: 09-10-2021 End: 10-17-2021 take 1 tablet by mouth once daily Levothyroxine 88 mcg tablet Discontinued 88 ug PO DAILY September 10, 2021 12:00am October 17, 2021 11:32pm Start: 08-28-2020 End: 09-10-2021 take 1 tablet by mouth once daily Levothyroxine 100 mcg tablet Discontinued 100 ug PO DAILY July 17, 2021 2:58pm September 10, 2021 12:56pm Start: 06-06-2017 End: 09-10-2021 take 1 tablet by mouth once daily before breakfast levothyroxine (SYNTHROID) 112 mcg tablet Take 1 tablet by mouth daily before breakfast. 90 tablet 1 06/23/2020 Active take 1 tablet by evans th once daily SYNTHROID 112 MCG TABS One tablet by mouth daily LEVOTHYROXINE SODIUM [id number] Angela Chi NP Comment on above: Take 1 tablet by evans th daily before breakfast. lisinopril 40 mg oral tablet (20 sources) Angiotensin Converting Enzyme Inhibitor Start: 06-06-2017 End: 12-03-2024 take 1 tablet by mouth once daily lisinopril (ZESTRIL, PRINIVIL) 40 mg tablet Take 1 tablet by mouth once daily. 90 tablet 12/20/2019 Active take 1 tablet by mouth once vi y LISINOPRIL 40 MG TABS One tablet by mouth daily LISINOPRIL [id number] Angela Chi NP Comment on above: Take 1 tablet by evans th once daily. Multivitamin (One Daily Multivitamin) tablet (3 sources) Start: 12-06-2022 take 1 tablet by mouth once daily Multivitamin (One Daily Multivitamin) tablet Active 1 {tbl} PO DAILY December 06, 2022 12:00am Start: 12-06-2022 take 1 tablet by evans th once daily Multivitamin (One Daily Multivitamin) tablet Active 1 TABLET PO DAILY December 06, 2022 12:00am Multivitamin preparation (2 sources) Start: 02-23-2022 take 1 tablet by mouth once daily Multivitamin Active 1 TABLET PO DAILY February 22, 2022 11:00pm Start: 02-23-2022 take 1 tablet by evans th once daily Multivitamin Active 1 TABLET PO DAILY February 23, 2022 12:00am multivitamin tablet (20 sources) take 1 tablet by evans th once daily multivitamin tablet Take 1 tablet by mouth once daily. Active take 1 tablet by mouth once vi y multivitamin tablet Take 1 tablet by mouth once daily. 0 Active Comment on above: Take 1 tablet by evans th once daily. naproxen 500 mg oral tablet (20 sources) Nonsteroidal Anti-inflammatory Drug Start: 08-02-19 take 1 tablet by mouth every twelve hours as needed naproxen (NAPROSYN) 500 mg tablet Take 1 tablet by mouth two times a day as needed (for pain/inflammation). Take with food. 14 tablet 08/02/2023 Active Comment on above: Take 1 tablet by [facility] two times a day as needed (for pain/inflammation). Take with food. nitrofurantoin, macrocrystals 25 mg / nitrofurantoin, monohydrate 75 mg oral capsule (3 sources) Nitrofuran Antibacterial Start: 08-23-19 End: 09-03-19 take 1 capsule by mouth twice daily nitrofurantoin monohydrate and macrocrystal (MACROBID) 100 mg capsule Take 1 capsule by mouth twice daily for 10 days. 20 capsule 0 08/23/2022 09/02/2022 Active Start: 04-24-2022 End: 04-29-2022 take 1 capsule by mouth twice daily nitrofurantoin monohydrate and macrocrystal (MACROBID) 100 mg capsule Take 1 capsule by mouth twice daily for 5 days. 10 capsule 0 04/24/2022 04/29/2022 Active Comment on above: Take 1 capsule by [facility] twice daily for 5 days. Take 1 capsule by [facility] twice daily for 10 days. polymyxin b [id number] unt/ml / trimethoprim 1 mg/ml ophthalmic solution (20 sources) Dihydrofolate Reductase Inhibitor Antibacterial, Polymyxin-class Antibacterial Start: take 1 drop(s) into the eye(s) four times daily trimethoprim-polymyx in (POLYTRIM) 10,000 unit- 1 mg/mL ophthalmic solution Use 1 Drop in the right eye four times daily. 10 mL 06/04/2024 Active predniSONE 10 mg oral tablet (1 source) Start: End: predniSONE (DELTASONE) 10 mg tablet Take 4 tabs daily x 3 days, then 3 tabs x 3 days, 2 tabs x 3 days, then 1 tab x3 days with food. 30 tablet 03/07/2024 03/19/2024 Active rosuvastatin calcium 10 mg oral tablet (3 sources) HMG-CoA Reductase Inhibitor Start: End: take 1 tablet by mouth once daily Rosuvastatin 10 mg tablet Active 10 mg PO DAILY June 12, 2024 9:26am Semaglutide (Weight Loss) (1 source) Start: Semaglutide (Weight Loss) (Wegovy) 1.7 mg/0.75 mL pen injector Active 1.7 mg SC EVERY WEEK December 03, 2024 12:00am administer weeks 13 through 16 of therapy sertraline 50 mg oral tablet (2 sources) Serotonin Reuptake Inhibitor Start: take 50 mg by mouth once daily Sertraline Active 50 MG PO DAILY October 18, 2021 3:46pm vitamin b12 1 mg/ml injectable solution (20 sources) Vitamin B12 Start: End: inject 1 mL by subcutaneous injection every month cyanocobalamin 1,000 mcg/mL Inject 1 mL subcutaneously once every month. 3 Each 3 07/23/2024 Active Start: 10-13-2023 inject 1000 ug by in tramuscular injection every month Cyanocobalamin (Vitamin B-12) 1,000 mcg/mL solution Active 1000 ug IM EVERY MONTH October 13, 2023 12:00am Start: 08-03-2022 End: 02-20-2024 inject 1 mL by subcutaneous injection every month cyanocobalamin 1,000 mcg/mL Inject 1 mL subcutaneously once every month. 3 Each 3 11/22/2023 Active Start: 01-12-2021 inject 1 mL by subcu taneous injection every month cyanocobalamin 1,000 mcg/mL Inject 1 mL subcutaneously once every month. 3 Vial 0 01/12/2021 Active Start: 07-15-2017 take 1000 ug by mouth once cristi ly Cyanocobalamin (Vitamin B-12) Active 1000 MCG PO DAILY July 15, 2017 12:00am Start: 06-29-2017 End: 03-24-2023 take 1 tablet by mouth once daily cyanocobalamin (MYRANDA MIN B-12) 1,000 mcg tab Take 1 tablet by mouth once daily. 30 tablet 5 06/29/2017 03/24/2023 Discontinued (Other) Comment on above: Take 1 tablet by evans th once daily. Inject 1 mL subcutan eously once every month. WEGOVY 0.25 mg/0.5 mL pen injector (20 sources) Start: 11-09-2023 WEGOVY 0.25 mg/0.5 mL pen injector inject 1 syringe subcutaneously once weekly 11/09/2023 Active Completed/Discontinued Medications Medication Drug Class(es) Dates Sig (Normalized) Sig (Original) atorvastatin 20 mg oral tablet (20 sources) HMG-CoA Reductase Inhibitor Start: 05-05-2020 End: 10-05-2021 take 1 tablet by mouth once daily Atorvastatin 20 mg tablet Discontinued 20 mg PO DAILY April 06, 2021 9:12am October 05, 2021 10:24am cholecalciferol 0.025 mg oral capsule (20 sources) Vitamin D Start: 08-26-2020 End: 12-06-2022 take 1 capsule by mouth once daily Cholecalciferol (Vitamin D3) 25 mcg (1,000 unit) capsule Discontinued 25 ug PO DAILY August 26, 2020 1:00am December 06, 2022 8:01am End: 10-11-2024 take 1 capsule by mouth once daily Cholecalciferol, Vitamin D3, 25 mcg (1,000 unit) cap Take 1,000 Units by mouth once daily. 10/11/2024 Discontinued Comment on above: Take 1,000 Units by mouth once daily. cyclobenzaprine hydrochloride 10 mg oral tablet (14 sources) Muscle Relaxant Start: 08-02-19 End: 07-19-19 take 1 tablet by mouth every eight hours as needed cyclobenzaprine (FLEXERIL) 10 mg tablet Take 1 tablet by mouth three times a day as needed for muscle spasm. 12 tablet 08/02/2023 07/19/2024 Discontinued Comment on above: Take 1 tablet by evans th three times a day as needed for muscle spasm. doxycycline monohydrate 100 mg oral tablet (4 sources) Tetracycline-class Drug Start: 02-15-20 End: 02-25-20 take 1 tablet by mouth twice daily doxycycline monohydrate 100 mg tablet Indications: Subacute cough Take 1 tablet by mouth twice daily for 10 days. 20 tablet 02/14/2023 02/21/2023 Discontinued (Other) Comment on above: Take 1 tablet by evans th twice daily for 10 days. fluconazole 200 mg oral tablet (4 sources) Azole Antifungal Start: 07-15-19 End: 07-19-19 take 1 tablet by mouth once fluconazole (DIFLUCAN) 200 mg tablet Take 200 mg by mouth one time only. 07/15/2024 07/19/2024 Discontinued Start: 04-05-2023 End: 04-06-2023 take 1 tablet by mouth once daily fluconazole (DIFLUCAN) 200 mg tablet Indications: Dysuria Take 1 tablet by mouth once daily for 1 dose. 1 tablet 0 04/05/2023 04/06/2023 Active Start: 02-14-2023 End: 02-14-2023 take 1 tablet by mouth once daily fluconazole (DIFLUCAN) 150 mg tablet Take 1 tablet by mouth once daily for 1 day. 1 tablet 0 02/14/2023 02/14/2023 Discontinued Start: 09-29-2022 End: 10-02-2022 take 1 tablet by mouth once daily fluconazole (DIFLUCAN) 100 mg tablet Take 1 tablet by mouth once daily for 3 days. 3 tablet 0 09/29/2022 10/02/2022 Active Comment on above: Take 1 tablet by evans th once daily for 3 days. Take 1 tablet by evans th once daily for 1 day. Take 1 tablet by evans th once daily for 1 dose. GLUCOSE BLOOD (2 sources) Start: 12-08-2016 End: 03-10-2025 [employer] BLUE STRP Check BG 8 times daily GLUCOSE BLOOD [id number] Angela Chi SOD STRIPPER 3 ml insulin lispro 100 unt/ml cartridge (10 sources) Insulin Analog Start: 07-15-2017 End: 08-03-2017 Insulin Lispro 100 UNIT/ML cartridge Discontinued 0 U INTRA-CATH Continuous July 15, 2017 1:00am August 03, 2017 12:06pm Start: 07-15-2017 End: 08-03-2017 Insulin Lispro Discontinued 0 UNIT INTRA-CATH Continuous July 15, 2017 1:00am August 03, 2017 12:06pm insulin aspart, human 100 unt/ml injectable solution (20 sources) Insulin Analog Start: 08-03-2017 End: 06-12-2024 Insulin Aspart U-100 (Novolog U-100 Insulin Aspart) 100 unit/mL solution Discontinued 0 SC daily 50 November 01, 2022 8:08am April 14, 2023 8:29am pt uses up to 50 U qd via pump SC QDAY Start: 08-24-2016 NOVOLOG 100 UN IT/ML SOLN Use per sliding scale, up to 50 units daily with insulin pump. INSULIN ASPART [id number] Angela Chi SOD STRIPPER Start: 10-06-2015 insulin aspart (NOVOLOG) 100 unit/mL soln use as directed in insulin pump up to 50 units daily 5 Vial 3 10/06/2015 Active Comment on above: use as directed in i nsulin pump up to 50 units daily lovastatin 40 mg oral tablet (20 sources) HMG-CoA Reductase Inhibitor Start: 06-06-2017 End: 05-05-2020 take 1 tablet by mouth once daily Lovastatin 40 mg tablet Discontinued 40 mg PO daily 90 August 02, 2018 8:50am August 22, 2018 11:44am Start: 01-27-2016 End: 10-21-2023 take 1 tablet by mouth twice daily Lovastatin 40 mg tablet Take 1 tablet by mouth twice daily. 180 tablet 4 01/27/2016 Active take 1 tablet by evans th twice daily ALTOPREV 40 MG [id number] One tablet by mouth twice daily LOVASTATIN [id number] Angela Chi NP Comment on above: Take 1 tablet by evans th twice daily. metroNIDAZOLE 0.0075 mg/mg topical gel (20 sources) Nitroimidazole Antimicrobial Start: 017 End: metroNIDAZOLE (METROGEL) 0.75 % Topical Gel APPLY 1 APPLICATION TO AFFECTED AREA TWO TIMES A DAY 45 g 3 05/16/2017 02/21/2023 Discontinued (Other) Comment on above: APPLY 1 APPLICATION TO AFFECTED AREA TWO TIMES A DAY phenazopyridine hydrochloride 200 mg oral tablet (15 sources) Start: 022 End: take 1 tablet by mouth every eight hours as needed phenazopyridine (PYRIDIUM, GERIDIUM) 200 mg tablet Take 1 tablet by mouth three times daily as needed. 20 tablet 1 05/18/2022 02/21/2023 Discontinued (Other) Comment on above: Take 1 tablet by evans th three times daily as needed. Semaglutide (Weight Loss) (2 sources) Start: End: Semaglutide (Weight Loss) (Wegovy) 0.25 mg/0.5 mL pen injector Discontinued 0.25 mg SC EVERY WEEK 2 October 17, 2023 7:52am December 05, 2023 2:54pm administer weeks 1 through 4 of therapy Start: 10-13-2023 End: 10-17-2023 Semaglutide (Weight Loss) (W egovy) 0.25 mg/0.5 mL pen injector Discontinued 0.25 mg SC EVERY WEEK 2 October 13, 2023 12:00am October 17, 2023 7:52am administer weeks 1 through 4 of therapy Semaglutide (Weight Loss) (2 sources) Start: 06-12-2024 End: 12-03-2024 Semaglutide (Weight Loss) (W egovy) 1 mg/0.5 mL pen injector Discontinued 1 mg SC Q7D 2 June 12, 2024 9:26am December 03, 2024 8:25am Start: 02-14-2024 End: 06-12-2024 Semaglutide (Weight Loss) (W egovy) 1 mg/0.5 mL pen injector Discontinued 1 mg SC Q7D 2 February 14, 2024 12:00am June 12, 2024 9:27am Semaglutide (Weight Loss) (2 sources) Start: 12-09-2023 End: 02-14-2024 Semaglutide (Weight Loss) (W egovy) 0.5 mg/0.5 mL pen injector Discontinued 0.5 mg SC EVERY WEEK 6 December 09, 2023 4:20pm February 14, 2024 8:13am administer weeks 5 through 8 of therapy Start: 12-05-2023 End: 12-09-2023 Semaglutide (Weight Loss) (W egovy) 0.5 mg/0.5 mL pen injector Discontinued 0.5 mg SC EVERY WEEK 6 December 05, 2023 12:00am December 09, 2023 4:20pm administer weeks 5 through 8 of therapy Problems Active Problems Problem Classification Problem Date Documented Date Episodic/Chronic Alcohol-related disorders (20 sources) Alcohol abuse; Translations: [Alcohol abuse, uncomplicated] Onset: 02-22-2022 Chronic Anxiety disorders (16 sources) Mixed anxiety and depressive disorder; Translations: [Other specified anxiety disorders] Onset: 10-11-2024 Chronic Asthma (20 sources) Mild intermittent asthma; Translations: [Mild intermittent asthma, uncomplicated] Onset: 04-25-2007 11-11-2017 Chronic Comment on above: EXERCISE INDUCED AST HMA- INHALER USED Deficiency and other anemia (1 source) Anemia; Translations: [Anemia, unspecified] 09-19-2024 Episodic Diabetes mellitus with complications (13 sources) Diabetic ketoacidosis; Translations: [Type 2 diabetes mellitus with ketoacidosis without coma] Chronic Diabetes mellitus without complication (20 sources) Type 1 diabetes mellitus; Translations: [Type 1 diabetes mellitus without complications] Onset: 09-22-2016 09-22-2016 Chronic Comment on above: Type I Disorders of lipid metabolism (20 sources) Pure hypercholesterolemia; Translations: [Pure hypercholesterolemia, unspecified] Onset: 04-06-2005 04-06-2005 Chronic Esophageal disorders (14 sources) Gastroesophageal reflux disease; Translations: [Gastro-esophageal reflux disease without esophagitis] Onset: 10-11-2024 10-11-2024 Chronic Essential hypertension (20 sources) Benign essential hypertension; Translations: [Essential (primary) hypertension] Onset: 06-12-2024 Chronic Fluid and electrolyte disorders (2 sources) Hyponatremia; Translations: [Hypo-osmolality and hyponatremia] 02-15-2023 Episodic Genitourinary symptoms and ill-defined conditions (3 sources) Dysuria; Translations: [Painful micturition, unspecified] Episodic Inflammation; infection of eye (except that caused by tuberculosis or sexually transmitteddisease) (1 source) Acute conjunctivitis of right eye; Translations: [Unspecified acute conjunctivitis, right eye] 06-04-2024 Episodic Malaise and fatigue (1 source) Fatigue; Translations: [Other fatigue] 02-14-2023 Episodic Menopausal disorders (6 sources) Atrophic vaginitis; Translations: [Postmenopausal atrophic vaginitis] Chronic Nonmalignant breast conditions (5 sources) Breast finding ; Translations: [Dense breast tissue] 10-04-2023 Episodic Nutritional deficiencies (11 sources) Cobalamin deficiency; Translations: [Deficiency of other specified B group vitamins] 02-19-2022 Episodic Other and unspecified benign neoplasm (10 sources) History of polyp of colon; Translations: [Personal history of colonic polyps] 02-19-2022 Episodic Other and unspecified benign neoplasm (5 sources) Personal history of colonic polyps; Translations: [Personal history of colonic polyps] Episodic Other and unspecified benign neoplasm (6 sources) History of adenomatous polyp of colon; Translations: [Personal history of colonic polyps] 07-10-2022 Episodic Other female genital disorders (1 source) Vaginal irritation; Translations: [Other specified noninflammatory disorders of vagina] 07-19-2024 Episodic Other injuries and conditions due to external causes (2 sources) Injury of ribs; Translations: [Unspecified injury of thorax, initial encounter] 08-02-2023 Episodic Other liver diseases (1 source) Elevated liver enzymes level; Translations: [Abnormal levels of other serum enzymes] 02-21-2023 Episodic Other lower respiratory disease (10 sources) Snoring; Translations: [Snoring] 02-19-2022 Episodic Other lower respiratory disease (2 sources) Cough; Translations: [Subacute cough] 02-14-2023 Episodic Other nervous system disorders (2 sources) Entrapment of right ulnar nerve; Translations: [Lesion of ulnar nerve, right upper limb] 03-05-2024 Chronic Other nervous system disorders (1 source) Disorder of right median nerve; Translations: [Other lesions of median nerve, right upper limb] 03-07-2024 Chronic Other nutritional; endocrine; and metabolic disorders (2 sources) Overweight; Translations: [Overweight] Onset: 09-22-2016 09-22-2016 Chronic Other nutritional; endocrine; and metabolic disorders (1 source) Weight gain; Translations: [Abnormal weight gain] 02-14-2023 Episodic Other screening for suspected conditions (not mental disorders or infectious disease) (2 sources) Plain X-ray result abnormal; Translations: [Abnormal findings on diagnostic imaging of other specified body structures] 02-21-2023 Chronic Other skin disorders (4 sources) Mass of neck; Translations: [Localized swelling, mass and lump, neck] 09-18-2024 Episodic Other skin disorders (1 source) Sebaceous cyst of skin; Translations: [Sebaceous cyst] 12-25-2024 Episodic Other skin disorders (1 source) Sebaceous cyst; Translations: [Sebaceous cyst of right axilla] Onset: 04-03-2025 Episodic Residual codes; unclassified (10 sources) History of colonoscopy; Translations: [Other specified postprocedural states] 02-19-2022 Episodic Comment on above: 07/18/17 X3 TOTAL, L AST BEING 2021 Substance-related disorders (14 sources) Smoker; Translations: [Nicotine dependence, unspecified, uncomplicated] Onset: 10-11-2024 10-11-2024 Chronic Thyroid disorders (20 sources) Hypothyroidism; Translations: [Hypothyroidism, unspecified] Onset: 04-06-2005 09-22-2016 Chronic Thyroid disorders (5 sources) Disorder of thyroid gland; Translations: [Disorder of thyroid, unspecified] 03-10-2022 Episodic Unclassified (2 sources) Insertion of insulin pump; Translations: [Presence of insulin pump (external) (internal)] Onset: 09-22-2016 09-22-2016 Unclassified (1 source) Sebaceous cyst of skin 02-24-2025 Unclassified (1 source) Dense breast tissue; Translations: [Dense breast tissue] Onset: 10-18-2024 Unclassified (1 source) Consult Onset: 10-11-2024 Urinary tract infections (2 sources) Acute cystitis; Translations: [Acute cystitis without hematuria] Episodic Past or Other Problems Problem Classification Problem Date Documented Da te Episodic/Chronic Allergic reactions (20 sources) Radiation-induced dermatosis; Translations: [Other skin changes due to chronic exposure to nonionizing radiation] Onset: 06-18-2008 Resolved: 02-16-2017 02-16-2017 Episodic Deficiency and other anemia (20 sources) Nutritional anemia; Translations: [Other vitamin B12 deficiency anemias] Onset: 04-25-2007 04-25-2007 Episodic Deficiency and other anemia (1 source) Anemia, unspecified; Translations: [Anemia, unspecified type] Onset: 09-26-2024 Episodic Diabetes mellitus without complication (19 sources) Glycosuria; Translations: [Glycosuria] Onset: 06-12-2024 Episodic Diseases of mouth; excluding dental (9 sources) Mass of right parotid gland; Translations: [Other diseases of salivary glands] Onset: 10-11-2024 09-21-2024 Episodic Headache; including migraine (20 sources) Headache; Translations: [Headache] Onset: 04-25-2007 04-25-2007 Episodic Other and unspecified benign neoplasm (20 sources) Benign neoplasm of skin of trunk; Translations: [Other benign neoplasm of skin of trunk] Onset: 04-25-2007 Resolved: 02-16-2017 02-16-2017 Episodic Other and unspecified benign neoplasm (20 sources) Benign neoplasm of skin of face; Translations: [Other benign neoplasm of skin of unspecified part of face] Onset: 04-25-2007 Resolved: 02-16-2017 02-16-2017 Episodic Other and unspecified benign neoplasm (20 sources) Benign tumor of head and neck; Translations: [Other benign neoplasm of skin of scalp and neck] Onset: 04-25-2007 Resolved: 02-16-2017 02-16-2017 Episodic Other nutritional; endocrine; and metabolic disorders (2 sources) Body mass index (BMI) 26.0-26.9, adult; Translations: [Body mass index (BMI) 26.0-26.9, adult] Onset: 09-22-2016 09-22-2016 Episodic Other screening for suspected conditions (not mental disorders or infectious disease) (18 sources) Patient encounter status; Translations: [Encounter for screening for malignant neoplasm of colon] Onset: 10-18-2024 10-04-2023 Episodic Other skin disorders (20 sources) Acne; Translations: [Other acne] Onset: 04-25-2007 02-18-2010 Episodic Other skin disorders (20 sources) Scar conditions and fibrosis of skin; Translations: [Scar conditions and fibrosis of skin] Onset: 04-25-2007 Resolved: 02-16-2017 02-16-2017 Episodic Other skin disorders (20 sources) Disorder of skin pigmentation; Translations: [Disorder of pigmentation, unspecified] Onset: 06-18-2008 Resolved: 02-16-2017 02-16-2017 Episodic Other skin disorders (20 sources) Solar lentigo; Translations: [Other melanin hyperpigmentation] Onset: 02-18-2010 Resolved: 02-16-2017 02-16-2017 Episodic Other skin disorders (20 sources) Changes in skin texture; Translations: [Other skin changes] Onset: 07-20-2012 Resolved: 02-16-2017 02-16-2017 Episodic Other skin disorders (20 sources) Epidermoid cyst of skin; Translations: [Epidermal cyst] Onset: 07-20-2012 Resolved: 02-16-2017 02-16-2017 Episodic Other skin disorders (1 source) Localized swelling, mass and lump, neck; Translations: [Neck mass] Onset: 09-18-2024 Episodic Unclassified (8 sources) Readiness finding; Translations: [Desire for detoxification] Unclassified (1 source) Patient encounter status 10-09-2024 Unclassified (2 sources) Breast finding 10-09-2024 Results Test Name Value Interpretation Reference Range Facility [facility] US BREAST LTD RTon 04-03 [facility] US BREAST L[facility] RT * * *Final Report* * * DATE OF EXAM: Apr 03 2025 8:47AM [id number] - [facility] US BREAST LTD RT / PROCEDURE REASON: Sebaceous cyst of right axilla * * * * Physician Interpretation * * * * [address] [address] [place] [address] #[id number] - [facility] US BREAST LTD RT HISTORY: 60 year-old patient presents for short term follow-up of right breast findings described on prior ultrasound. Patient states no personal history of breast cancer. COMPARISON STUDIES: The present examination has been compared to prior imaging studies dated 12/25/2024 (ultrasound) and 12/25/2024 (mammogram). ULTRASOUND TECHNIQUE: Targeted ultrasound of the indicated area was performed. scale images were saved. ULTRASOUND FINDINGS: There is a stable superficial oval lesion with circumscribed margins measuring 0.7 cm in the right axilla. Internal echotexture is hypoechoic. This resembles a sebaceous cyst. Again, a suggestion of an associated tract extends to the skin surface. No associated vascularity. IMPRESSION: The 0.7 cm oval lesion in the right axilla is probably benign. This resembles a sebaceous cyst. Follow-up with diagnostic ultrasound is recommended in 6 months. BI-RADS Category 3: Probably Benign Interpreting Radiologist: Sha Miranda M.D. Electronically signed on: 04/03/2025 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: OLRI Transcribe Date/Time: Apr 03 2025 8:47A Dictated by : SHA MIRANDA MD This examination was interpreted and the report reviewed and electronically signed by: SHA MIRANDA MD on Apr 03 2025 9:30AM EST [id number] Normal [facility] DBT Breast - right diagnosti c for implanton 12-25-2024 IMPRESSION: Lesion in the right axilla is probably benign. This is consistent with a sebaceous cyst. Follow-up with diagnostic ultrasound is recommended in 3 months. BI-RADS Category 3: Probably Benign RISK: Based on the Tyrer-Cuzick (TC) risk assessment model, this patient has a 5.6% lifetime risk of developing breast cancer, meaning they are at average risk for developing breast cancer. However, this is only an estimate based on available history provided on the patient's questionnaire. We encourage all patients to talk with their providers about these results, further recommendations for managing breast health, and appropriate supplemental screening options if the patient has dense breast tissue. Interpreting Radiologist: Yolanda Chan M.D. Electronically signed on: 12/25/2024 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: LORI Transcristephanie Date/Time: Dec 25 2024 8:55A Dictated by: YOLANDA CHAN MD This examination was interpreted and the report reviewed and electronically signed by: YOLANDA CHAN MD on Dec 25 2024 9:46AM [facility] DIVISION OF RADIOLOGY * * *Final Report* * * DATE OF EXAM: Dec 25 2024 9:08AM [facility] 0629 - [facility] DIAG W TAMARA RT / PROCEDURE REASON: multiple diagnoses * * * * Physician Interpretation * * * * RESULT: [place] [address] #[id number] - [facility] DIAG W TAMARA RT #[id number] - [facility] BREAST LTD RT HISTORY: 59 year-old patient presents for diagnostic evaluation of the finding(s) described on prior mammogram in the right breast. Patient states no personal history of breast cancer. COMPARISON STUDIES: The present examination has been compared to prior imaging studies dated 10/06/2023 (mammogram) and 10/18/2024 (mammogram). MAMMOGRAM TECHNIQUE: The study was acquired using full field digital technology and interpreted from soft copy. Digital Breast Tomosynthesis (DBT) images were obtained and used to assist in the interpretation of this examination. MAMMOGRAM FINDINGS: The breast is heterogeneously dense, which may obscure small masses. There is an equal dense asymmetry measuring 0.8 cm with indistinct margins in the right axilla. ULTRASOUND TECHNIQUE: Targeted ultrasound of the indicated area was performed. scale images were saved. ULTRASOUND FINDINGS: Ultrasound demonstrates an oval lesion measuring 0.7 cm in the right axilla. Internal echotexture is hypoechoic. Color flow imaging demonstrates vascularity is not present. This is consistent with a sebaceous cyst. DIVISION OF RADIOLOGY Provider, Aminah Casas - 12/25/2024 * * *Final Report* * * DATE OF EXAM: Dec 25 2024 9:08AM [id number] - [facility] DIAG W TAMARA RT / PROCEDURE REASON: multiple diagnoses * * * * Physician Interpretation * * * * RESULT: [address] [address] [place] [address] #[id number] - [facility] JAZZMINE W TAMARA RT #[id number] - [facility] US BREAST LTD RT HISTORY: 59 year-old patient presents for diagnostic evaluation of the finding(s) described on prior mammogram in the right breast. Patient states no personal history of breast cancer. COMPARISON STUDIES: The present examination has been compared to prior imaging studies dated 10/06/2023 (mammogram) and 10/18/2024 (mammogram). MAMMOGRAM TECHNIQUE: The study was acquired using full field digital technology and interpreted from soft copy. Digital Breast Tomosynthesis (DBT) images were obtained and used to assist in the interpretation of this examination. MAMMOGRAM FINDINGS: The breast is heterogeneously dense, which may obscure small masses. There is an equal dense asymmetry measuring 0.8 cm with indistinct margins in the right axilla. ULTRASOUND TECHNIQUE: Targeted ultrasound of the indicated area was performed. scale images were saved. ULTRASOUND FINDINGS: Ultrasound demonstrates an oval lesion measuring 0.7 cm in the right axilla. Internal echotexture is hypoechoic. Color flow imaging demonstrates vascularity is not present. This is consistent with a sebaceous cyst. IMPRESSION IMPRESSION: Lesion in the right axilla is probably benign. This is consistent with a sebaceous cyst. Follow-up with diagnostic ultrasound is recommended in 3 months. BI-RADS Category 3: Probably Benign RISK: Based on the Tyrer-Cuzick (TC) risk assessment model, this patient has a 5.6% lifetime risk of developing breast cancer, meaning they are at average risk for developing breast cancer. However, this is only an estimate based on available history provided on the patient's questionnaire. We encourage all patients to talk with their providers about these results, further recommendations for managing breast health, and appropriate supplemental screening options if the patient has dense breast tissue. Interpreting Radiologist: Yolanda Chan M.D. Electronically signed on: 12/25/2024 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: LORI Transcribe Date/Time: Dec 25 2024 8:55A Dictated by: YOLANDA CHAN MD This examination was interpreted and the report reviewed and electronically signed by: YOLANDA CHAN MD on Dec 25 2024 9:46AM EST [facility] DIAG W TAMARA RTon 025 [facility] DIAG W TAMARA RT * * *Final Report* * * DATE OF EXAM: Dec 25 2024 9:08AM [id number] - [facility] DIAG W TAMARA RT / PROCEDURE REASON: multiple diagnoses * * * * Physician Interpretation * * * * RESULT: [place] [address] #[id number] - [facility] W TAMARA RT #[id number] - [facility] US BREAST LTD RT HISTORY: 59 year-old patient presents for diagnostic evaluation of the finding(s) described on prior mammogram in the right breast. Patient states no personal history of breast cancer. COMPARISON STUDIES: The present examination has been compared to prior imaging studies dated 10/06/2023 (mammogram) and 10/18/2024 (mammogram). MAMMOGRAM TECHNIQUE: The study was acquired using full field digital technology and interpreted from soft copy. Digital Breast Tomosynthesis (DBT) images were obtained and used to assist in the interpretation of this examination. MAMMOGRAM FINDINGS: The breast is heterogeneously dense, which may obscure small masses. There is an equal dense asymmetry measuring 0.8 cm with indistinct margins in the right axilla. ULTRASOUND TECHNIQUE: Targeted ultrasound of the indicated area was performed. scale images were saved. ULTRASOUND FINDINGS: Ultrasound demonstrates an oval lesion measuring 0.7 cm in the right axilla. Internal echotexture is hypoechoic. Color flow imaging demonstrates vascularity is not present. This is consistent with a sebaceous cyst. IMPRESSION: Lesion in the right axilla is probably benign. This is consistent with a sebaceous cyst. Follow-up with diagnostic ultrasound is recommended in 3 months. BI-RADS Category 3: Probably Benign RISK: Based on the Tyrer-Cuzick (TC) risk assessment model, this patient has a 5.6% lifetime risk of developing breast cancer, meaning they are at average risk for developing breast cancer. However, this is only an estimate based on available history provided on the patient's questionnaire. We encourage all patients to talk with their providers about these results, further recommendations for managing breast health, and appropriate supplemental screening options if the patient has dense breast tissue. Interpreting Radiologist: Yolanda Chan M.D. Electronically signed on: 12/25/2024 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: LORI Transcribe Date/Time: Dec 25 2024 8:55A Dictated by: YOLANDA CHAN MD This examination was interpreted and the report reviewed and electronically signed by: YOLANDA CHAN MD on Dec 25 2024 9:46AM EST [id number] Normal [facility] [place] [facility] BREAST LTD RTon 12-25 [facility] [place] [facility] BREAST L[facility] RT * * *Final Report* * * DATE OF EXAM: Dec 25 2024 9:34AM [id number] - [facility] [place] SA BREAST [facility] RT / PROCEDURE REASON: Abnormal mammogram * * * * Physician Interpretation * * * * [place] [address] #[id number] - [facility] PATAmanda Alexandra MCDONALD RT #[id number] - [facility] [place] SA BREAST Tr[facility]ap RT HISTORY: 59 year-old patient presents for diagnostic evaluation of the finding(s) described on prior mammogram in the right breast. Patient states no personal history of breast cancer. COMPARISON STUDIES: The present examination has been compared to prior imaging studies dated 10/06/2023 (mammogram) and 10/18/2024 (mammogram). MAMMOGRAM TECHNIQUE: The study was acquired using full field digital technology and interpreted from soft copy. Digital Breast Tomosynthesis (DBT) images were obtained and used to assist in the interpretation of this examination. MAMMOGRAM FINDINGS: The breast is heterogeneously dense, which may obscure small masses. There is an equal dense asymmetry measuring 0.8 cm with indistinct margins in the right axilla. ULTRASOUND TECHNIQUE: Targeted ultrasound of the indicated area was performed. scale images were saved. ULTRASOUND FINDINGS: Ultrasound demonstrates an oval lesion measuring 0.7 cm in the right axilla. Internal echotexture is hypoechoic. Color flow imaging demonstrates vascularity is not present. This is consistent with a sebaceous cyst. IMPRESSION: Lesion in the right axilla is probably benign. This is consistent with a sebaceous cyst. Follow-up with diagnostic ultrasound is recommended in 3 months. BI-RADS Category 3: Probably Benign RISK: Based on the Tyrer-Cuzick (TC) risk assessment model, this patient has a 5.6% lifetime risk of developing breast cancer, meaning they are at average risk for developing breast cancer. However, this is only an estimate based on available history provided on the patient's questionnaire. We encourage all patients to talk with their providers about these results, further recommendations for managing breast health, and appropriate supplemental screening options if the patient has dense breast tissue. Interpreting Radiologist: Yolanda Chan M.D. Electronically signed on: 12/25/2024 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: LORI Transcribe Date/Time: Dec 25 2024 9:18A Dictated by : YOLANDA CHAN MD This examination was interpreted and the report reviewed and electronically signed by: YOLANDA CHAN MD on Dec 25 2024 9:46AM EST [id number] Normal [facility] No Panel InformationOrdered By: [facility] Provider on 12-25-2024 [facility] No Panel Informationon 12-25 Radiology Study observation (narrative) [facility] US Breast - right limitedon 12-25-2024 IMPRESSION: Lesion in the right axilla is probably benign. This is consistent with a sebaceous cyst. Follow-up with diagnostic ultrasound is recommended in 3 months. BI-RADS Category 3: Probably Benign RISK: Based on the Tyrer-Cuzick (TC) risk assessment model, this patient has a 5.6% lifetime risk of developing breast cancer, meaning they are at average risk for developing breast cancer. However, this is only an estimate based on available history provided on the patient's questionnaire. We encourage all patients to talk with their providers about these results, further recommendations for managing breast health, and appropriate supplemental screening options if the patient has dense breast tissue. Interpreting Radiologist: Yolanda Chan M.D. Electronically signed on: 12/25/2024 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: LORI Transcribe Date/Time: Dec 25 2024 9:18A Dictated by : YOLANDA CHAN MD This examination was interpreted and the report reviewed and electronically signed by: YOLANDA CHAN MD on Dec 25 2024 9:46AM [facility] DIVISION OF RADIOLOGY * * *Final Report* * * DATE OF EXAM: Dec 25 2024 9:34AM [facility] - [facility] [place] SA BREAST Trutap RT / PROCEDURE REASON: Abnormal mammogram * * * * Physician Interpretation * * * * [place] [address] #[id number] - [facility] PATG W TAMARA RT #[id number] - [facility] [place] SA BREAST Trutap RT HISTORY: 59 year-old patient presents for diagnostic evaluation of the finding(s) described on prior mammogram in the right breast. Patient states no personal history of breast cancer. COMPARISON STUDIES: The present examination has been compared to prior imaging studies dated 10/06/2023 (mammogram) and 10/18/2024 (mammogram). MAMMOGRAM TECHNIQUE: The study was acquired using full field digital technology and interpreted from soft copy. Digital Breast Tomosynthesis (DBT) images were obtained and used to assist in the interpretation of this examination. MAMMOGRAM FINDINGS: The breast is heterogeneously dense, which may obscure small masses. There is an equal dense asymmetry measuring 0.8 cm with indistinct margins in the right axilla. ULTRASOUND TECHNIQUE: Targeted ultrasound of the indicated area was performed. scale images were saved. ULTRASOUND FINDINGS: Ultrasound demonstrates an oval lesion measuring 0.7 cm in the right axilla. Internal echotexture is hypoechoic. Color flow imaging demonstrates vascularity is not present. This is consistent with a sebaceous cyst. DIVISION OF RADIOLOGY Provider, [facility] - 12/25/2024 * * *Final Report* * * DATE OF EXAM: Dec 25 2024 9:34AM [facility] - [facility] [place] SA BREAST Trutap RT / PROCEDURE REASON: Abnormal mammogram * * * * Physician Interpretation * * * * [address] [address] [place] [address] #[id number] - [facility] JAZZMINE MCDONALD RT #[id number] - [facility] US BREAST LTD RT HISTORY: 59 year-old patient presents for diagnostic evaluation of the finding(s) described on prior mammogram in the right breast. Patient states no personal history of breast cancer. COMPARISON STUDIES: The present examination has been compared to prior imaging studies dated 10/06/2023 (mammogram) and 10/18/2024 (mammogram). MAMMOGRAM TECHNIQUE: The study was acquired using full field digital technology and interpreted from soft copy. Digital Breast Tomosynthesis (DBT) images were obtained and used to assist in the interpretation of this examination. MAMMOGRAM FINDINGS: The breast is heterogeneously dense, which may obscure small masses. There is an equal dense asymmetry measuring 0.8 cm with indistinct margins in the right axilla. ULTRASOUND TECHNIQUE: Targeted ultrasound of the indicated area was performed. scale images were saved. ULTRASOUND FINDINGS: Ultrasound demonstrates an oval lesion measuring 0.7 cm in the right axilla. Internal echotexture is hypoechoic. Color flow imaging demonstrates vascularity is not present. This is consistent with a sebaceous cyst. IMPRESSION IMPRESSION: Lesion in the right axilla is probably benign. This is consistent with a sebaceous cyst. Follow-up with diagnostic ultrasound is recommended in 3 months. BI-RADS Category 3: Probably Benign RISK: Based on the Tyrer-Cuzick (TC) risk assessment model, this patient has a 5.6% lifetime risk of developing breast cancer, meaning they are at average risk for developing breast cancer. However, this is only an estimate based on available history provided on the patient's questionnaire. We encourage all patients to talk with their providers about these results, further recommendations for managing breast health, and appropriate supplemental screening options if the patient has dense breast tissue. Interpreting Radiologist: Yolanda Chan M.D. Electronically signed on: 12/25/2024 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: LORI Transcribe Date/Time: Dec 25 2024 9:18A Dictated by : YOLANDA CHAN MD This examination was interpreted and the report reviewed and electronically signed by: YOLANDA CHAN MD on Dec 25 2024 9:46AM EST [facility] Endocrinology Visit Reporton 12-03-2024 Endocrinology Visit Report [facility] [address] [place] [address] OFFICE VISIT Date of Service: 12/03/24 MR#: [id number] Acct: [id number] Name: MAYI MATA Rep #: [id number] 1 : 1965 Provider: Negrita Yeboah Age/Sex: 59/F Location: [facility] Status: Signed Intake Vital Signs 06/12/24 07:57 12/03/24 07:55 Height 5 ft 4 in 5 ft 4 in Weight: 148 lb 6 oz 144 lb BMI 25.4 24.7 BP 120/84 H 112/75 Blood Pressure Location Rt brachial Lt brachial Position Sitting Sitting Pulse 110 H 94 Pulse Source Monitor Monitor Pulse Oximetry (%) 97 98 Oxygen Delivery Method room air room air Intake Visit Reasons: 6 M FU Chief Complaint: Diabetes Allergies No Known Allergies Allergy (Verified 12/03/24 07:58) Medications ???Medication ???Instructions ???Recorded ???Confirmed ???Type ascorbic acid (vitamin C) 1,000 mg 1,000 mg PO DAILY supplement 05/1312/03/24 History tablet,extended release aspirin 81 mg tablet,delayed 81 mg PO QDAY heart health 7 12/03/24 History release (Luis Felipe Low Dose Aspirin) lansoprazole 30 mg capsule,delayed 30 mg PO PRN PRN GERD 06/06/17 0 12/03/24 History release (Prevacid) insulin syringe-needle U-100 0.3 #20 ea 07/10/20 12/03/24 Rx mL 31 gauge x 5/16 (BD Insulin Syringe Ultra-Fine) escitalopram oxalate 10 mg tablet 10 mg PO DAILY anxiety 02/11/22 0 12/03/24 History blood sugar diagnostic (Accu-Chek #450 ea 05/11/22 12/03/24 Rx Guide test strips) multivitamin (One Daily 1 tab PO DAILY 12/06/22 12/03/24 H istory Multivitamin tablet) cyanocobalamin (vitamin B-12) 1,000 mcg IM QMONTH 10/13/2312/03 History 1,000 mcg/mL injection solution insulin aspart U-100 100 unit/mL See Rx Instructions subcut QDAY 12/03/24 Rx subcutaneous solution (Novolog e10.9 #50 mL U-100 Insulin aspart) rosuvastatin 10 mg tablet 10 mg PO DAILY #90 tabs 06/12/24 0 12/03/24 Rx lisinopril 40 mg tablet 40 mg PO QDAY blood pressure #90 0 08/08/24 12/03/24 Rx tabs levothyroxine 100 mcg tablet 100 mcg PO DAILY #90 tabs 09/13/24 12/03/24 Rx semaglutide (weight loss) 1.7 1.7 mg (0.75 mL) subcut QWEEK #3 m L 12/03/24 12/03/24 Rx mg/0.75 mL subcutaneous pen injector (Wegovy) [facility] Medical History (Updated 12/03/24 @ 08:[address] 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 Personal history of colonic polyps Hypothyroid Asthma Type 1 diabetes mellitus Snoring Vitamin B 12 deficiency Surgical History S/P hysterectomy S/P oophorectomy S/P colonoscopy S/P appendectomy Family History Father Malignant tumor of kidney Arthritis Grandfather Colon cancer Social History Smoking Status: Light Smoker (<10/day) second hand exposure: No alcohol intake: never substance use type: does not use caffeine: Yes what type of physical activity do you participate in: walking frequency: 1-2 times per week seatbelt use: always HPI HPI Chief Complaint: Diabetes Details: MAYI MATA, is a 59 F who presents to the office today for follow up. A1C is 7.8% GMI is 6.8% She is using Medtronic 780G insulin pump with Guardian 4 CGM and auto mode. Upload shows good control, with the exception of post meal highs and under reporting of carbs. She states she gets worried about going low. Labs were done in May. She is taking Wegovy for CV protection. She has lost weight. She is on rosuvastatin for lipids. She has hypothyroidism and is taking levothyroxine. TSH was low in May and dosage was reduced. Her last drink was at [facility]. ROS Const Constitutional: No anorexia, excessive sweating, fatigue, malaise, night sweats, weight change or change in appetite Eyes Eyes: No change in vision ENT ENT: No hearing loss, dizziness/vertigo, nasal congestion or difficulty swallowing Cardio Cardiology: No chest pain at rest, chest pain with exertion, excessive sweating, shortness of breath, dyspnea on exertion, irregular heart rhythm or palpitations Musc Musculoskeletal: No abnormal gait, joint pain, numbness or tingling Neuro Neurology: No abnormal gait, memory loss, numbness or tingling Psych Psychiatric: No change in appetite, No memory loss and No Thoughts of harming yourself/Others Resp Respiratory: No cough, chest congestion or shortne (more content not included)... Normal [facility] HBA1C (OUTSIDE)on 12-03-2024 HbA1c (Bld) [Mass fraction] 7.8 % [facility] Comment on above: Sarmad [facility] Alissa 11-28-2024 CNPN Telephone (RDXWS) MAYI MATA ([id number]) 1965 F Date Time Provider Department 11/28/24 PEACE CUEVAS During your visit today, we recorded the following information about you: Aaron Scott, [employer] 11/28/2024 2:03 PM Signed Please file an order for a right diagnostic mammogram.Patient is only a call back for additional imaging of the right breast. Thank you. Peace Cuevas APRN.FELIPA 11/28/2024 2:11 PM Signed Order signed. Peace Cuevas APRN.CNM Allergies As of Date: 11/28/2024 Noted Allergy Reaction SERTRALINE 12/22/2007 6 - Diarrhea Date Reviewed: 11/01/2024 Reviewed by: Mary Lou Hwang MD - Fully Assessed Reason for Visit: Orders [681] Primary Visit Diagnosis:Dense breast tissue [R92.30] Other Visit Diagnosis:Abnormal mammogram [R92.8] Order(s):[facility] DIAGNOSTIC RIGHT [[id number]] Order #: [id number] FUTURE Prescriptions as of 11/28/2024 - fluticasone-salmeterol (WIXELA INHUB) 500-50 mcg/dose dsdv Inhale 1 puff as instructed two times a day. - escitalopram oxalate (LEXAPRO) 10 mg tablet Take 1 tablet by mouth once daily. - cyanocobalamin 1,000 mcg/mL Inject 1 mL subcutaneously once every month. - trimethoprim-polymyxin (POLYTRIM) 10,000 unit- 1 mg/mL ophthalmic solution Use 1 Drop in the right eye four times daily. - WEGOVY 0.25 mg/0.5 mL pen injector inject 1 syringe subcutaneously once weekly - fluticasone-salmeterol (ADVAIR DISKUS) 500-50 mcg/dose dsdv Inhale 1 Puff as instructed two times a day. Rinse mouth after use. - lansoprazole (PREVACID) 30 mg capsule TAKE NECESSARY - naproxen (NAPROSYN) 500 mg tablet Take 1 tablet by mouth two times a day as needed (for pain/inflammation). Take with food. - estradiol (E2) emollient cream 0.2 mg/gram (CPD) Insert fingertip amount vaginally every other day at bedtime - hydroCHLOROthiazide 25 mg tablet Take 25 mg by mouth once daily. - latanoprost (XALATAN) 0.005 % ophthalmic solution - multivitamin tablet Take 1 tablet by mouth once daily. - Insulin Syringe-Needle U-100 (BD INSULIN SYRINGE) 1 mL 25 x 1 syrg Use one a month for b12 injections - levothyroxine (SYNTHROID) 112 mcg tablet Take 1 tablet by mouth daily before breakfast. - lisinopril (ZESTRIL, PRINIVIL) 40 mg tablet Take 1 tablet by mouth once daily. - albuterol HFA (PROVENTIL HFA, VENTOLIN HFA) 90 mcg/actuation inhaler Inhale 2 Puffs as instructed every 4 hours as needed for Wheezing/Shortness of Breath. - COMPOUNDED PRESCRIPTION 3cc syringe and 25g 1 needle for B12 injections. - Lovastatin 40 mg tablet Take 1 tablet by mouth twice daily. - insulin aspart (NOVOLOG) 100 unit/mL soln use as directed in insulin pump up to 50 units daily - blood sugar diagnostic (JaschaTOUCH ULTRA TEST) test strip CHECK BLOOD SUGARS 8 TIMES DAILY - COMPOUNDED PRESCRIPTION Metronic Minimed Insulin Pump Supples And life scan testing supplies use as directed - Lancets Misc lancets testing 8 times daily - BD ULTRA FINE LANCETS use as directed - ASPIRIN 81 MG ORAL TAB Take one(1) tablet daily. Problem List As Of Date 11/28/2024 Noted Resolved Type 1 diabetes mellitus (HCC) [E10.9] Hypothyroidism [E03.9] 04/06/2005 PURE HYPERCHOLESTEROLEM [E78.00] 04/06/2005 Mild intermittent asthma, uncomplicated [J45.20]04/25/2007 B12 DEFIC ANEMIA NEC [D51.8] 04/25/2007 ACNE VULGARIS: Inflammatory Grade III//IV: low*04/25/2007 HEADACHE [R51] 04/25/2007 NEVUS CHEST/BACK///BENIGN TAMMY SKIN TRUNK [D23.5]04/25/2007 02/16/2017 NEVUS///BENIGN TAMMY SKIN FACE NEC [D23.30] 04/25/2007 02/16/2017 NEVI////BENIGN TAMMY SCALP/SKIN NECK [D23.4] 04/25/2007 02/16/2017 SCARS: Acne-related (chin) [L90.5] 04/25/2007 02/16/2017 SOLAR LENTIGINES///DYSCHROMIA OTHER [L81.9] 06/18/2008 02/16/2017 ACTINIC DAMAGE///CHR SOLAR SKIN DAMAGE NOS [L57*06/18/2008 02/16/2017 Dermatitis due to cosmetics [L25.0] 06/18/2008 02/16/2017 Contact dermatitis and other eczema, due to uns*06/18/2008 02/16/2017 Contact dermatitis and other eczema due to othe*06/18/2008 02/16/2017 Solar Lentigines [L81.4] 02/18/2010 02/16/2017 Postinflammatory skin changes [R23.8] 07/20/2012 02/16/2017 Epidermal cyst [L72.0] 07/20/2012 02/16/2017 Alcohol abuse [F10.10] 02/22/2022 Essential hypertension, benign [I10] 10/11/2024 Anxiety and depression [F41.9, F32.A] 10/11/2024 Current smoker [F17.200] 10/11/2024 GERD (gastroesophageal reflux disease) [K21.9] 10/11/2024 Encounter Status:Closed by PONCHO GOMEZ on 11/28/24 [facility] (RADMN[facility] MAYI MATA ([id number]) 1965 F Date Time Provider Department 11/13/24 MOE WILLIS During your visit today, we recorded the following information about you: Allergies As of Date: 11/13/2024 Noted Allergy Reaction SERTRALINE 12/22/2007 6 - Diarrhea Date Reviewed: 11/01/2024 Reviewed by: Mary Lou Hwang MD - Fully Assessed Reason for Visit: Mammogram Result Call Back [[id number]] Prescriptions as of 11/20/2024 - fluticasone-salmeterol (WIXELA INHUB) 500-50 mcg/dose dsdv Inhale 1 puff as instructed two times a day. - escitalopram oxalate (LEXAPRO) 10 mg tablet Take 1 tablet by mouth once daily. - cyanocobalamin 1,000 mcg/mL Inject 1 mL subcutaneously once every month. - trimethoprim-polymyxin (POLYTRIM) 10,000 unit- 1 mg/mL ophthalmic solution Use 1 Drop in the right eye four times daily. - WEGOVY 0.25 mg/0.5 mL pen injector inject 1 syringe subcutaneously once weekly - fluticasone-salmeterol (ADVAIR DISKUS) 500-50 mcg/dose dsdv Inhale 1 Puff as instructed two times a day. Rinse mouth after use. - lansoprazole (PREVACID) 30 mg capsule TAKE NECESSARY - naproxen (NAPROSYN) 500 mg tablet Take 1 tablet by mouth two times a day as needed (for pain/inflammation). Take with food. - estradiol (E2) emollient cream 0.2 mg/gram (CPD) Insert fingertip amount vaginally every other day at bedtime - hydroCHLOROthiazide 25 mg tablet Take 25 mg by mouth once daily. - latanoprost (XALATAN) 0.005 % ophthalmic solution - multivitamin tablet Take 1 tablet by mouth once daily. - Insulin Syringe-Needle U-100 (BD INSULIN SYRINGE) 1 mL 25 x 1 syrg Use one a month for b12 injections - levothyroxine (SYNTHROID) 112 mcg tablet Take 1 tablet by mouth daily before breakfast. - lisinopril (ZESTRIL, PRINIVIL) 40 mg tablet Take 1 tablet by mouth once daily. - albuterol HFA (PROVENTIL HFA, VENTOLIN HFA) 90 mcg/actuation inhaler Inhale 2 Puffs as instructed every 4 hours as needed for Wheezing/Shortness of Breath. - COMPOUNDED PRESCRIPTION 3cc syringe and 25g 1 needle for B12 injections. - Lovastatin 40 mg tablet Take 1 tablet by mouth twice daily. - insulin aspart (NOVOLOG) 100 unit/mL soln use as directed in insulin pump up to 50 units daily - blood sugar diagnostic (JaschaTOUCH ULTRA TEST) test strip CHECK BLOOD SUGARS 8 TIMES DAILY - COMPOUNDED PRESCRIPTION Metronic Minimed Insulin Pump Supples And life scan testing supplies use as directed - Lancets Misc lancets testing 8 times daily - BD ULTRA FINE LANCETS use as directed - ASPIRIN 81 MG ORAL TAB Take one(1) tablet daily. Problem List As Of Date 11/13/2024 Noted Resolved Type 1 diabetes mellitus (HCC) [E10.9] Hypothyroidism [E03.9] 04/06/2005 PURE HYPERCHOLESTEROLEM [E78.00] 04/06/2005 Mild intermittent asthma, uncomplicated [J45.20]04/25/2007 B12 DEFIC ANEMIA NEC [D51.8] 04/25/2007 ACNE VULGARIS: Inflammatory Grade III//IV: low*04/25/2007 HEADACHE [R51] 04/25/2007 NEVUS CHEST/BACK///BENIGN TAMMY SKIN TRUNK [D23.5]04/25/2007 02/16/2017 NEVUS///BENIGN TAMMY SKIN FACE NEC [D23.30] 04/25/2007 02/16/2017 NEVI////BENIGN TAMMY SCALP/SKIN NECK [D23.4] 04/25/2007 02/16/2017 SCARS: Acne-related (chin) [L90.5] 04/25/2007 02/16/2017 SOLAR LENTIGINES///DYSCHROMIA OTHER [L81.9] 06/18/2008 02/16/2017 ACTINIC DAMAGE///CHR SOLAR SKIN DAMAGE NOS [L57*06/18/2008 02/16/2017 Dermatitis due to cosmetics [L25.0] 06/18/2008 02/16/2017 Contact dermatitis and other eczema, due to uns*06/18/2008 02/16/2017 Contact dermatitis and other eczema due to othe*06/18/2008 02/16/2017 Solar Lentigines [L81.4] 02/18/2010 02/16/2017 Postinflammatory skin changes [R23.8] 07/20/2012 02/16/2017 Epidermal cyst [L72.0] 07/20/2012 02/16/2017 Alcohol abuse [F10.10] 02/22/2022 Essential hypertension, benign [I10] 10/11/2024 Anxiety and depression [F41.9, F32.A] 10/11/2024 Current smoker [F17.200] 10/11/2024 GERD (gastroesophageal reflux disease) [K21.9] 10/11/2024 Encounter Status:Closed by ANNE DELCID on 11/20/24 [facility] Damari 11-01-2024 CNOV Office Visit (OTOLST ) MAYI MATA ([id number]) 1965 F Date Time Provider Department 11/01/24 9:30 AM MARY LOU HWANG OTOLST During your visit today, we recorded the following information about you: Mary Lou Hwang MD 11/01/2024 9:04 AM Signed History: Mayi Mata, a 59 year old female - IDDM - on pump, presents s/p R sup parotidectomy w/o CN VII dissection 10/25/24. Path: warthins. Mild numbness of ear lobe. FNA 09/25/24: neg for malig cells, limited cellularity, cyst contents and rare oncocytes. Suggestive of warthins. CT neck 09/21/24: 13 x 10 x 15 mm R parotid mass. Deniess difficulty swallowing solids and liquids, pain with swallowing, hoarseness, shortness of breath, cough, hemoptysis, ear pain, throat clearing, post-nasal drip, fever, chills, weight loss. No history of thyroid disease/surgery. No history of trauma. smoke 1/3 ppd. Off alcohol. PE: Alert; oriented; well-developed; no apparent distress. Normal voice; normal communication. Neck: wound intact. Neck flat. Min ecchymosis. CN VII intact. Assessment/Plan: S/p R sup parotidectomy w/o CN VII dissection. Path: warthins. Sutures removed. F/up 3 mos. 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 - oxyCODONE-acetaminophen (PERCOCET) 5-325 mg tablet Take 1-2 tablets by mouth every 6 hours as needed for pain for up to 7 days. - escitalopram oxalate (LEXAPRO) 10 mg tablet Take 1 tablet by mouth once daily. - cyanocobalamin 1,000 mcg/mL Inject 1 mL subcutaneously once every month. - trimethoprim-polymyxin (POLYTRIM) 10,000 unit- 1 mg/mL ophthalmic solution Use 1 Drop in the right eye four times daily. - WEGOVY 0.25 mg/0.5 mL pen injector inject 1 syringe subcutaneously once weekly - fluticasone-salmeterol (ADVAIR DISKUS) 500-50 mcg/dose dsdv Inhale 1 Puff as instructed two times a day. Rinse mouth after use. - lansoprazole (PREVACID) 30 mg capsule TAKE NECESSARY - naproxen (NAPROSYN) 500 mg tablet Take 1 tablet by mouth two times a day as needed (for pain/inflammation). Take with food. - estradiol (E2) emollient cream 0.2 mg/gram (CPD) Insert fingertip amount vaginally every other day at bedtime - hydroCHLOROthiazide 25 mg tablet Take 25 mg by mouth once daily. - latanoprost (XALATAN) 0.005 % ophthalmic solution - multivitamin tablet Take 1 tablet by mouth once daily. - Insulin Syringe-Needle U-100 (BD INSULIN SYRINGE) 1 mL 25 x 1 syrg Use one a month for b12 injections - levothyroxine (SYNTHROID) 112 mcg tablet Take 1 tablet by mouth daily before breakfast. - lisinopril (ZESTRIL, PRINIVIL) 40 mg tablet Take 1 tablet by mouth once daily. - albuterol HFA (PROVENTIL HFA, VENTOLIN HFA) 90 mcg/actuation inhaler Inhale 2 Puffs as instructed every 4 hours as needed for Wheezing/Shortness of Breath. - COMPOUNDED PRESCRIPTION 3cc syringe and 25g 1 needle for B12 injections. - Lovastatin 40 mg tablet Take 1 tablet by mouth twice daily. - insulin aspart (NOVOLOG) 100 unit/mL soln use as directed in insulin pump up to 50 units daily - blood sugar diagnostic (JaschaTOUCH ULTRA TEST) test strip CHECK BLOOD SUGARS 8 TIMES DAILY - COMPOUNDED PRESCRIPTION Metronic Minimed Insulin Pump Supples And life scan testing supplies use as directed - Lancets Misc lancets testing 8 times daily - BD ULTRA FINE LANCETS use as directed - ASPIRIN 81 MG ORAL TAB Take one(1) tablet daily. Problem List As Of Date 11/01/2024 Noted Resolved Type 1 diabetes mellitus (HCC) [E10.9] Hypothyroidism [E03.9] 04/06/2005 PURE HYPERCHOLESTEROLEM [E78.00] 04/06/2005 Mild intermittent asthma, uncomplicated [J45.20]04/25/2007 B12 DEFIC ANEMIA NEC [D51.8] 04/25/2007 ACNE VULGARIS: Inflammatory Grade III//IV: low*04/25/2007 HEADACHE [R51] 04/25/2007 NEVUS CHEST/BACK///BENIGN TAMMY SKIN TRUNK [D23.5]04/25/2007 02/16/2017 NEVUS///BENIGN TAMMY SKIN FACE NEC [D23.30] 04/25/2007 02/16/2017 NEVI////BENIGN TAMMY SCALP/SKIN NECK [D23.4] 04/25/2007 02/16/2017 SCARS: Acne-related (chin) [L90.5] 04/25/2007 02/16/2017 SOLAR LENTIGINES///DYSCHROMIA OTHER [L81.9] 06/18/2008 02/16/2017 ACTINIC DAMAGE///CHR SOLAR SKIN DAMAGE NOS [L57*06/18/2008 02/16/2017 Dermatitis due to cosmetics [L25.0] 06/18/2008 02/16/2017 Contact dermatitis and other eczema, due to uns*06/18/2008 02/16/2017 Contact dermatitis and other eczema due to othe*06/18/2008 02/16/2017 Solar Lentigines [L81.4] 02/18/2010 02/16/2017 Postinflammatory skin changes [R23.8] 07/20/2012 02/16/2017 Epidermal cyst [L72.0] 07/20/2012 02/16/2017 Alcohol abuse [F10.10] 02/22/2022 Essential (more content not included)... Normal [facility] ANES POSTPROC EVALon 025 ANES POSTPROC EVAL HNO ID: [id number] Author: TONY GRULLON MD Service: Anesthesiology Author Type: Anesthesiologist Type: Anesthesia Postprocedure Evaluation Filed: 10/25/2024 10:01 Note Text: POST ANESTHESIA EVALUATION NOTE : 1965 Procedure Summary Date: 10/25/24 Room / Location: OR01 / [facility] OR Anesthesia Start: 731 Anesthesia Stop: 936 Procedure: PAROTIDECTOMY (Right: Neck) Diagnosis: Parotid mass (Parotid mass [K11.8]) Surgeons: Mary Lou Hwang MD Responsible Provider: Tony Grullon MD Anesthesia Type: general ASA Status: 3 Anesthesia Type: general Airway Type: ETT Last Vitals Vitals Value Taken Time BP 102/57 10/25/24 0945 Temp 36.3 ?C (97.3 ?F) 10/25/24 0929 Pulse 105 10/25/24 1000 Resp 20 10/25/24 1000 SpO2 95 % 10/25/24 1000 Vitals shown include unfiled device data. Post Anesthesia Patient Status Patient Evaluation: PACU. PACU/ICU Patient Condition: stable. Anticipated Disposition: phase 2 then home. Neurological Status: aware and responsive. Pulmonary Status: breathing comfortably on room air Airway Control: returned to baseline unsupported. Cardiovascular Status: stable. Pain Management: clinically adequate - multimodal analgesia pain management approach Postoperative Hydration: acceptable. Intraoperative Events: no significant anesthesia events Recommendation: continue current plan of care. Anesthesia Observations No notable events were associated with this procedure. Documented by Mars Zarate APRN.SPEECH LANGUAGE PATHOLOGIST PRN 10/25/2024 9:37 AM EDT SIGNATURE: Tony Grullon MD PATIENT NAME: Mayi Mata DATE: October 25, 2024 TIME: 10:01 AM CSN: [id number] [facility] ANES PRE-OPon 10-25-2024 ANES PRE-OP HNO ID: [id number] Author: TONY GRULLON MD Service: Anesthesiology Author Type: Anesthesiologist Type: Anesthesia Preprocedure Evaluation Filed: 10/25/2024 07:27 Note Text: ANESTHESIOLOGY DAY OF SURGERY NOTE : 1965 Procedure Information Date/Time: 10/25/24729 Procedure: PAROTIDECTOMY (Right: Neck) Location: [facility] / [facility] Surgeons: Mary Lou Hwang MD Estimated body mass index is 24.72 kg/m? as calculated from the following: Height as of 10/11/24: 162.6 cm (5' 4). Weight as of 10/11/24: 65.3 kg (144 lb). Most recent hematocrit and potassium results: Hematocrit 33.6 10/11/2024 Potassium 4.7 09/18/2024 Relevant Problems CARDIO (+) Essential hypertension, benign ENDO (+) Hypothyroidism (+) Type 1 diabetes mellitus (HCC) GI (+) GERD (gastroesophageal reflux disease) PULMONARY (+) Mild intermittent asthma, uncomplicated (HCC) I - PHYSICAL EVALUATION AIRWAY Patient intubated: No. Tracheostomy tube not present Mallampati: II. TM distance: >3 FB. Neck ROM: full ROM without neurological symptoms. Mouth opening: adequate. Short neck: no. Thick neck: no DENTAL Dental findings: poor dentition. Additional exam findings: no II - ANESTHESIA PLAN ASA Score: 3 Anesthetic Plan: general Airway type: ETT NPO Status: adequate Beta Meg Monitoring Plan Monitoring plan: standard ASA. Post Procedure Analgesic Plan Postoperative analgesic plan: parenteral or oral opioids and multimodal analgesia. Patient / Surrogate agrees to blood products: blood products not planned DNR status not reviewed with patient and/or family prior to surgery. Significant changes in the patient condition since the History and Physical, not otherwise documented in primary service progress note: no. Potential Anesthesia issues that may suggest increased risk of complications or contraindication to planned procedure: none. Vitals Value Taken Time BP 109/58 10/25/24632 Pulse 80 10/25/24632 Resp 18 10/25/24632 Temp 36.3 ?C (97.3 ?F) 10/25/24632 SpO2 100 % 10/25/24632 Facility-Administered Medications as of 10/25/2024 Medication Dose Route Frequency - lidocaine (PF) 10 mg/mL (1 %) 1-2 mg injection (XYLOCAINE) 0.1-0.2 mL INTRADERMAL PRN - lactated ringers iv infusion 5-30 mL/hr INTRAVENOUS CONTINUOUS - NaCl 0.9% iv flush bag 20 mL INTRAVENOUS PRN - ceFAZolin iv piggyback 2 g in D5W (iso-osmotic) 100 mL (ANCEF) 2 g INTRAVENOUS Pre-Op Once Outpatient Medications as of 10/25/2024 Medication Sig - escitalopram oxalate (LEXAPRO) 10 mg tablet Take 1 tablet by mouth once daily. - trimethoprim-polymyxin (POLYTRIM) 10,000 unit- 1 mg/mL ophthalmic solution Use 1 Drop in the right eye four times daily. - lansoprazole (PREVACID) 30 mg capsule TAKE NECESSARY - naproxen (NAPROSYN) 500 mg tablet Take 1 tablet by mouth two times a day as needed (for pain/inflammation). Take with food. - hydroCHLOROthiazide 25 mg tablet Take 25 mg by mouth once daily. - multivitamin tablet Take 1 tablet by mouth once daily. - levothyroxine (SYNTHROID) 112 mcg tablet Take 1 tablet by mouth daily before breakfast. - lisinopril (ZESTRIL, PRINIVIL) 40 mg tablet Take 1 tablet by mouth once daily. - albuterol HFA (PROVENTIL HFA, VENTOLIN HFA) 90 mcg/actuation inhaler Inhale 2 Puffs as instructed every 4 hours as needed for Wheezing/Shortness of Breath. - Lovastatin 40 mg tablet Take 1 tablet by mouth twice daily. - insulin aspart (NOVOLOG) 100 unit/mL soln use as directed in insulin pump up to 50 units daily - blood sugar diagnostic (ONETOUCH ULTRA TEST) test strip CHECK BLOOD SUGARS 8 TIMES DAILY - BD ULTRA FINE LANCETS use as directed - ASPIRIN 81 MG ORAL TAB Take one(1) tablet daily. - cyanocobalamin 1,000 mcg/mL Inject 1 mL subcutaneously once every month. - WEGOVY 0.25 mg/0.5 mL pen injector inject 1 syringe subcutaneously once weekly - fluticasone-salmeterol (ADVAIR DISKUS) 500-50 mcg/dose dsdv Inhale 1 Puff as instructed two times a day. Rinse mouth after use. - estradiol (E2) emollient cream 0.2 mg/gram (CPD) Insert fingertip amount vaginally every other day at bedtime - latanoprost (XALATAN) 0.005 % ophthalmic solution - Insulin Syringe-Needle U-100 (BD INSULIN SYRINGE) 1 mL 25 x 1 syrg Use one a month for b12 injections - COMPOUNDED PRESCRIPTION 3cc syringe and 25g 1 needle for B12 injections. - COMPOUNDED PRESCRIPTION Metronic Minimed Insulin Pump Supples And life scan testing supplies use as directed - Lancets Misc lancets testing 8 times daily I have interviewed and examined the patient. I have reviewed the medical record and/or the pre-anesthesia evaluation, pertinent labs, and test results. This contains updated information obtained within 48 hours of Surgery/Procedure. SIGNATURE: Tony Grullon MD PATIENT NAME: Mayi Mata DATE: October 25, 2024 TIME: 7:27 AM CSN: [id number] [facility] BRIEF OP NOTon 10-25-2024 BRIEF OP NOT HNO ID: [id number] Author: MARY LOU HWANG MD Service: Otolaryngology Author Type: Physician Type: Brief Op Note Filed: 10/25/2024 09:21 Note Text: BRIEF OPERATIVE / PROCEDURE NOTE LOG ID: [id number] SURGERY/PROCEDURE DATE: 10/25/2024 INCISION/PROCEDURE START TIME: 8:15 AM INCISION CLOSE/PROCEDURE END TIME: 9:09 AM SURGEON(S)/PROCEDURALIS T(S) AND CHEMIST INORGANIC(S): Surgeons and Role: * Mary Lou Hwang MD - Primary Nurse Practitioner: Jeffry Louis APRN.POKER MANAGER SURGERY/PROCEDURE(S): Right superficial parotidectomy without dissection of cranial nerve VII ANESTHESIA: General FINDINGS: 1.5 cm R superficial parotid mass along posterior border of parotid ESTIMATED BLOOD LOSS: Min SPECIMENS: R parotid mass COMPLICATIONS: None POST-OP/POST-PROCEDURE DIAGNOSIS: Right parotid mass SIGNATURE: Mary Lou Hwang MD PATIENT NAME: Mayi Mata DATE: October 25, 2024 TIME: 9:19 AM [facility] OPERATIVE NOon 10-25-2024 OPERATIVE NO HNO ID: [id number] Author: MARY LOU HWANG MD Service: Otolaryngology Author Type: Physician Type: Operative Report Filed: 10/25/2024 17:06 Note Text: [facility] - Operative Report MAYI MATA : 1965 AGE: 59. SEX: F PATIENT TYPE: A HOSP SVC: MYRTLE LOCATION: [facility] ATTENDING PHYSICIAN: MARY LOU HWANG CSN NUMBER: [id number] DATE OF SURGERY/PROCEDURE: 10/25/2024 INCISION/PROCEDURE START TIME: 0815 hours. INCISION CLOSE/PROCEDURE END TIME: 0910 hours. PREOPERATIVE DIAGNOSIS: Right parotid mass. POSTOPERATIVE DIAGNOSIS: Right parotid mass. SURGEON: Mary Lou Hwang M.D. CHEMIST INORGANIC: Jeffry Louis. SURGERY/PROCEDURE: Right superficial parotidectomy without dissection of cranial nerve 7. ANESTHESIA: General. OPERATIVE INDICATION: The patient is a 59-year-old female with a right parotid mass. A fine-needle aspiration in September 2024 was negative for malignant cells. 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 OPERATIVE FINDINGS: A 1.5 cm right parotid mass along the posterior aspect of the mass overlying the sternocleidomastoid. DESCRIPTION OF PROCEDURE: The patient was identified in the preop holding area and transferred to the operating room. Patient was placed in supine position. Anesthesia was induced. The patient was orally intubated. The nerve integrity monitor was properly connected to the patient's face. Then the monitor was used throughout the entire procedure. The proposed incision site was injected with 1% lidocaine with 1:100,000 epinephrine. The patient's right face and neck was prepped with Betadine and draped in usual sterile fashion. The inferior portion of a standard superficial parotidectomy incision was made. The incision was made inferiorly from the ear lobule. Incision was not made superior to the lobule and the incision was extended through the dermis. The mass was readily identified. The mass along the posterior aspect of the parotid gland was elevated off the sternocleidomastoid. Mass was dissected from the surrounding tissue. Hemostasis was obtained with bipolar cautery. The wound was copiously irrigated with normal saline. The wound was then closed. The dermis closed with multiple interrupted 4-0 Vicryl sutures. The skin was reapproximated using a running 5-0 Prolene. The wound was dressed with antibiotic ointment. The patient was awakened and extubated without difficulty. ESTIMATED BLOOD LOSS: Minimal. COMPLICATIONS: None. SPECIMEN: The right parotid mass was sent to pathology for review. DISPOSITION: The patient was transferred to PACU in stable condition. No resident was available for the procedure. Jeffry Louis, the surgical garment assembly supervisor was present from prep to transport to the PACU. Mary Lou Hwang M.D. DREAD:[id number] /[id number] Normal [facility] Pathology biopsy report Franki (Tiss)on 10-25-2024 AP DISCLAIMER Normal [facility] Comment on above: Order Comment: Speci men Type: TISSUE SPECIMEN Ordering Facility: [facility] Address: [address] [place] [address] Result Comment: Gaurang douglas Developed Test (LDT) Disclaimer: Performance characteristics of immunohistochemical, immunofluorescent, and chromogenic in-situ hybridization tests have been determined by the performing laboratory within [facility]'s [facility] Pathology and Laboratory Medicine Department ([facility], [facility], [facility], [place], [facility], [facility], or [facility]) in a manner consistent with CLIA requirements. One or more of these tests may not have been cleared or approved by the FDA. [facility] is regulated under CLIA as qualified to perform high-complexity testing. These tests are used for clinical purposes. These should not be regarded as investigational or for research. Positive and negative controls stain appropriately. Performed By: #### 6 6121-5 #### [facility] CLIA [id number] [place] [address] CASE REPORT Normal [facility] Comment on above: Order Comment: Speci men Type: TISSUE SPECIMEN Ordering Facility: [facility] Address: [address] [place] [address] Result Comment: Surg ical Pathology Report Case: [id number] Authorizing Provider: Mary Lou Hwang MD Collected: 10/25/2024 08:56 AM Ordering Location: [facility] Received: 10/25/2024 10:29 AM Operating Room Pathologist: Chano Ingram MD Specimen: Parotid Gland, Right, Resection, Right parotid mass Performed By: #### 6 6121-5 #### [facility] CLIA [id number] [address] [place] [address] [place] CLINICAL HISTORY Normal [facility] Comment on above: Order Comment: Speci men Type: TISSUE SPECIMEN Ordering Facility: [facility] Address: [address] [place] [address] Result Comment: Pre- op diagnosis: Parotid mass [K11.8] Performed By: #### 6 6121-5 #### [facility] CLIA [id number] [address] [place] [address] FINAL DIAGNOSIS Normal [facility] Comment on above: Order Comment: Speci men Type: TISSUE SPECIMEN Ordering Facility: [facility] Address: [address] [place] [address] Result Comment: Righ t parotid mass, excision: - 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 - Tumor does not involve the inked edge of the specimen (<0.1 cm from ink). - No evidence of malignancy. at 0925 EDT Performed By: #### 6 6121-5 #### [facility] CLIA [id number] [address] [place] [address] FINAL PERFORMING LAB Normal [facility] Comment on above: Order Comment: Speci men Type: TISSUE SPECIMEN Ordering Facility: [facility] Address: [address] [place] [address] Result Comment: Diag nostic interpretation performed at: [facility], [address] [place] [address] CLIA# [id number] Supervisor Tan Room: Josue Elizabeth MD Performed By: #### 6 6121-5 #### [facility] CLIA [id number] [address] [place] [address] GROSS DESCRIPTION Normal [facility] Comment on above: Order Comment: Speci men Type: TISSUE SPECIMEN Ordering Facility: [facility] Address: [address] [place] [address] Result Comment: A. P arotid Gland, Right, Resection Labeled: Right parotid mass Received: In formalin Orientation: Unoriented Specimen dimensions: 1 g, 1.5 x 1.1 x 0.8 cm, fitzpatrick- well-circumscribed oval mass Ink code: Outer surface inked black Lesion size: 1.5 x 1.1 x 0.8 cm Lesion description: The cut surfaces are cystic and containing a viscous material resembling motor oil Distance from margins: 0.1 cm from the outer surface Other Findings: Not applicable Uninvolved tissue: There is no attached parotid parenchyma. The specimen is entirely submitted in 1 cassette. WE October 25, 2024 2:12 PM Gross examination performed at [facility], [address] [place] [address] Performed By: #### 6 6121-5 #### [facility] CLIA [id number] [address] [place] [address] OF [place] SAUNDRA SCREENING W TOMOon 10-18 SAUNDRA SCREENING W TAMARA * * *Final Report* * * DATE OF EXAM: Oct 18 2024 3:20PM [id number] - SAUNDRA SCREENING W TAMARA / PROCEDURE REASON: multiple diagnoses * * * * Physician Interpretation * * * * RESULT: [facility] [address] [place] [address] #[id number] - SAUNDRA SCREENING W TAMARA HISTORY: 59 year-old patient seen for screening. Patient is asymptomatic in both breasts. Patient states no personal history of breast cancer. COMPARISON STUDIES: The present examination has been compared to a prior imaging study dated 10/06/2023 (mammogram). MAMMOGRAM TECHNIQUE: The study was acquired using full field digital technology and interpreted from soft copy. Digital Breast Tomosynthesis (DBT) images were obtained and used to assist in the interpretation of this examination. MAMMOGRAM FINDINGS: The breasts are heterogeneously dense, which may obscure small masses. There is an asymmetry in the right axilla. No suspicious masses, calcifications or other abnormalities are seen in the left breast. IMPRESSION: The asymmetry in the right axilla requires additional evaluation. Diagnostic mammogram and ultrasound are recommended. BI-RADS Category 0: Incomplete: Needs Additional Imaging Evaluation RISK: Based on the Tyrer-Cuzick (TC) risk assessment model, this patient has a 5.6% lifetime risk of developing breast cancer, meaning they are at average risk for developing breast cancer. However, this is only an estimate based on available history provided on the patient's questionnaire. We encourage all patients to talk with their providers about these results, further recommendations for managing breast health, and appropriate supplemental screening options if the patient has dense breast tissue. Interpreting Radiologist: Moe Willis M.D. Electronically signed on: 10/22/2024 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: LORI Transcribe Date/Time: Oct 18 2024 2:32P Dictated by: MOE WILLIS MD This examination was interpreted and the report reviewed and electronically signed by: MOE WILLIS MD on Oct 22 2024 3:56PM EST [id number] Normal [facility] CBC panel Auto (Bld)on 10-11 Erythrocyte distribution width (RBC) [Ratio] 12.0 % Normal 11.5-15.0 [facility] Comment on above: Order Comment: Speci men Type: STOOL SPECIMEN Ordering Facility: [facility] Address: [address] [place] [address] Performed By: #### 2 9771-3 #### [facility] CLIA [id number] [address] [place] [address] [place] Hematocrit (Bld) [Volume fraction] 33.6 % Low 36.0-46.0 [facility] Comment on above: Order Comment: Speci men Type: STOOL SPECIMEN Ordering Facility: [facility] Address: [address] [place] [address] Performed By: #### 2 9771-3 #### [facility] CLIA [id number] [address] [place] [address] [place] Hemoglobin (Bld) [Mass/Vol] 11.6 g/dL Normal 11.5-15.5 [facility] Comment on above: Order Comment: Speci men Type: STOOL SPECIMEN Ordering Facility: [facility] Address: [address] [place] [address] Performed By: #### 2 9771-3 #### [facility] CLIA [id number] [address] [place] [address] [place] MCH (RBC) [Entitic mass] 31.0 pg Normal 26.0-34.0 [facility] Comment on above: Order Comment: Speci men Type: STOOL SPECIMEN Ordering Facility: [facility] Address: [address] [place] [address] Performed By: #### 2 9771-3 #### [facility] CLIA [id number] [address] [place] [address] [place] MCHC (RBC) [Mass/Vol] 34.5 g/dL Normal 30.5-36.0 [facility] Comment on above: Order Comment: Speci men Type: STOOL SPECIMEN Ordering Facility: [facility] Address: [address] [place] [address] Performed By: #### 2 9771-3 #### [facility] CLIA [id number] [address] [place] [address] [place] MCV (RBC) [Entitic vol] 89.8 fL Normal 80.0-100.0 [facility] Comment on above: Order Comment: Speci men Type: STOOL SPECIMEN Ordering Facility: [facility] Address: [address] [place] [address] Performed By: #### 2 9771-3 #### [facility] CLIA [id number] [address] [place] [address] [place] Nucleated RBC (Bld) [#/Vol] 10*3/uL Normal <0.01 [facility] Comment on above: Order Comment: Speci men Type: STOOL SPECIMEN Ordering Facility: [facility] Address: [address] [place] [address] Performed By: #### 2 9771-3 #### [facility] CLIA [id number] [address] [place] [address] [place] Platelet mean volume (Bld) [Entitic vol] 9.3 fL Normal 9.0-12.7 [facility] Comment on above: Order Comment: Speci men Type: STOOL SPECIMEN Ordering Facility: [facility] Address: [address] [place] [address] Performed By: #### 2 9771-3 #### [facility] CLIA [id number] [address] [place] [address] [place] Platelets (Bld) [#/Vol] 328 10*3/uL Normal 150-400 [facility] Comment on above: Order Comment: Speci men Type: STOOL SPECIMEN Ordering Facility: [facility] Address: [address] [place] [address] Performed By: #### 2 9771-3 #### [facility] CLIA [id number] [address] [place] [address] [place] RBC (Bld) [#/Vol] 3.74 10*6/uL Low 3.90-5.20 [facility] Comment on above: Order Comment: Speci men Type: STOOL SPECIMEN Ordering Facility: [facility] Address: [address] [place] [address] Performed By: #### 2 9771-3 #### [facility] CLIA [id number] [address] [place] [address] [place] WBC (Bld) [#/Vol] 8.88 10*3/uL Normal 3.70-11.00 [facility] Comment on above: Order Comment: Speci men Type: STOOL SPECIMEN Ordering Facility: [facility] Address: [address] [place] [address] Performed By: #### 2 9771-3 #### [facility] CLIA [id number] [address] [place] [address] OF [facility] HISTORY PHYSICALon HISTORY PHYSICAL HNO ID: [id number] Author: JAMISON BACA APRN.POKER MANAGER Service: ? Author Type: Nurse Practitioner Type: H&P Filed: 10/11/2024 09:14 Note Text: [facility] HISTORY AND PHYSICAL EXAMINATION SERVICE DATE: 10/11/2024 SERVICE TIME: 9:13 AM PRIMARY CARE PHYSICIAN: William Steinberg MD Assessment Patient has the following medical conditions which may affect colette-operative course: PURE HYPERCHOLESTEROLEM Assessment: c/w statin Essential hypertension, benign Assessment: controlled on rx Mild intermittent asthma, uncomplicated Assessment: rx as needed Type 1 diabetes mellitus (HCC) Assessment: follows endo, type 1, insulin pump, reviewed to set to basal rate DOS, pt verbalized understanding. New A1c pending Hemoglobin A1C Date Value 02/14/2024 6.8 12/03/2022 8.2 % 08/27/2019 7.5 % Alcohol abuse Assessment: denies any current daily ETOH Albumin (g/dL) Date Value 03/21/2023 4.4 Bilirubin, Total (mg/dL) Date Value 03/21/2023 0.6 Bilirubin, Direct (mg/dL) Date Value 03/21/2023 0.2 (H) Alkaline Phosphatase (U/L) Date Value 03/21/2023 85 AST (U/L) Date Value 03/21/2023 22 ALT (U/L) Date Value 03/21/2023 16 Protein, Total (g/dL) Date Value 03/21/2023 6.9 Anxiety and depression Assessment: stable on rx per pt Hypothyroidism Assessment: stable on rx per pt TSH Date Value Ref Range Status 03/21/2023 2.750 0.270 - 4.200 mIU/L Final Current smoker Assessment: 0.25-0.5ppd, denies COPD GERD (gastroesophageal reflux disease) Assessment: rx as needed ANESTHESIA FINDINGS: Intubation History: No history of difficult intubation Significant Anesthesia Considerations: none Airway History: No history of difficult airway Clayton Activity Status Index: METS: Climb a flight of stairs or walk up a hill (5.50 METs) DASI Score: 5.5 Patient denies any chest pain or undue shortness of breath with the above physical activity. Clinical Frailty Scale: 3. Well, with treated comorbid disease STOP-Bang Score: Has or is being treated for high blood pressure Patient over 50 years old Denies snoring loudly Denies feeling tired, fatigued, or sleepy during the daytime Has not been observed to stop breathing or choking/gasping during sleep BMI less than or equal to 35 kg/m2 Does not have a large neck Non-male patient STOP-Bang Score: 2 [id number] Score: Age: <65 Sex: female CHF history: No Hypertension history: Yes Stroke/TIA/thromboembol ism history: No Vascular disease history: No Diabetes history: Yes [id number] Score: 3 ARISCAT Score: Age: 51-80 Preoperative SpO2: >=96% Respiratory infection in the last month: No Preoperative anemia: No Surgical incision: peripheral Duration of surgery: >3 hrs Emergency procedure: No ARISCAT Score: 26 I - PHYSICAL EVALUATION AIRWAY Patient intubated: No. Tracheostomy tube not present Mallampati: III. TM distance: >3 FB. Neck ROM: full ROM without neurological symptoms. Mouth opening: adequate. Short neck: no. Thick neck: no Reilly present: no Lip Bite Test: I Microretrognathia/Micro nagthia/Recessed Chin: No DENTAL Dental findings: teeth intact. Additional comments: +crowns/back. II - ANESTHESIA PLAN Anesthetic Plan: other Beta Meg Monitoring Plan Post Procedure Analgesic Plan Prepared for Surgery: optimally prepared for surgery, pending [see comment]. labs CONSULTS: Patient does not require consults for optimization at this time Planned Anesthetic: other anesthesia choice The Following Tests/Procedures Have Been Initiated: No orders of the defined types were placed in this encounter. REASON FOR VISIT: Mayi Mata is a 59 year old female who is scheduled for Procedure(s): PAROTIDECTOMY (Right) at the request of Dr. Mary Lou Hwang for consultation. My final recommendation will be communicated back to the requesting physician by way of shared medical record or letter. Subjective The patient has the following: COVID-19 Immunization Status Completed or No Longer Recommended Covid-19 Vaccine (Series Information) Completed 04/04/2024 Imm Admin: COVID-19 vaccine, age 12+ yr (PFIZER-BIONTECH COMIRNATY) 05/22/2023 Imm Admin: COVID-19 vaccine, age 12+ yr (PFIZER-BIONTECH COMIRNATY) 03/24/2023 Postponed until 03/24/2024 by William Steinberg MD (Declined at this time) Only the first 3 history entries have been loaded, but more history exists. CHIEF COMPLAINT: Pre-op exam HPI: Mayi Mata is a 59 year old seen for PAC due to scheduled above surgery because of right parotid mass. 10/03/2024, Dr. Mary Lou Hwang History: Mayi Mata, a 59 year old female - IDDM - on pump, presents for f/up R parotid mass, noted 2 mos ago. No pain or change. FNA 09/25/24: neg for malig cells, limited cellularity, cyst contents and rare oncocytes. Suggestive of warthins. CT neck 09/21/24: 13 x (more content not included)... Normal [facility] PT panel Coag (PPP)on 2024 INR Coag (PPP) [Relative time] 1.0 {INR} Normal 0.9-1.3 [facility] Comment on above: Order Comment: Speci men Type: BLOOD SPECIMENOrdering Facility: [facility] Address: [address] [place] [address] Result Comment: Myranda min K Antagonist (VKA) Therapeutic Range: INR 2 to 3 (Target INR of 2.5) Note: For patients treated with VKA drugs, such as warfarin, the [employer] 2012 Guideline recommends a therapeutic INR range of 2 to 3 (target INR of 2.5). This recommendation includes high-risk patients with antiphospholipid syndrome with previous arterial or venous thromboembolism, current-generation mechanical or bioprosthetic aortic heart valve replacement. Note: Patients with mechanical aortic valve replacement and additional risk factors for thromboembolic events (atrial fibrillation, previous thromboembolism, LV dysfunction, hypercoagulable conditions) or an older generation mechanical AVR (i.e., ball in-Cage) or any mechanical MVR should have a INR therapeutic range of 2.5 to 3.5 (target INR of 3). Duane DELCID, et al. Chest 2012, 141:7S-47S Chaka RA, et al. [facility] 2017, 70: 252-289 Performed By: #### 3 4528-0, 97046-0 ####[facility] [id number] [place] [address] [place] PT Coag (PPP) [Time] 10.0 s Normal <13.1 [facility] Comment on above: Order Comment: Speci men Type: BLOOD SPECIMENOrdering Facility: [facility] Address: [address] [place] [address] Performed By: #### 3 4528-0, 68770-2 ####[facility] [id number] [place] [address] [place] aPTT PPPon 10-11-2024 aPTT Coag (PPP) [Time] 32.6 s High 23.0-32.4 [facility] Comment on above: Order Comment: Speci men Type: BLOOD SPECIMENOrdering Facility: [facility] Address: [address] [place] [address] Performed By: #### 3 4528-0, 23008-7 ####[facility] [id number] [address] [place] CNOVon 10-09-2024 CNOV Office Visit (OBGYWM ) MAYI MATA ([id number]) 1965 F Date Time Provider Department 10/09/24 4:00 PM PEACE CUEVAS OBYISSELWNegrita During your visit today, we recorded the following information about you: Blood pressure Weight Height 110/68 65.3 kg 1.626 m Peace Cuevas APRN.CNM 10/09/2024 4:41 PM Signed Mayi is a 59 year old who presents for an annual gynecologic exam without complaints. Postmenopausal: Yes - hysterectomy HRT use: No. 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: 01/13/2007, Hysterectomy Age at Menarche: 13 Age at First : Age at 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 History Comments: Sexual Activity: Yes; Male Contraception: No contraception data on record FAMILY HISTORY Problem Relation Age of Onset No Known Problems Mother other (RENAL CANCER) Father other (Brain Tumors) Sister other (Giallan barrette Syndrome) Sister Colon Cancer Maternal Grandmother and maternal grandfather No Known Problems Maternal Grandfather No Known Problems Paternal Grandmother No Known Problems Paternal Grandfather SOCIAL HISTORY Social History Tobacco Use Smoking status: Every Day Current packs/day: 0.50 Types: Cigarettes Smokeless tobacco: Never Tobacco comments: seldom Vaping Use Vaping status: Never Used Substance Use Topics Alcohol use: Not Currently Drug use: No REVIEW OF SYSTEMS Abdomen: No abdominal pain, nausea, vomiting, diarrhea, or constipation. No bloating, early satiety, indigestion, or increased flatulence. Bladder: No dysuria, gross hematuria, urinary frequency, urinary urgency, or incontinence Breast: No breast lumps, nipple d/c, overlying skin changes, redness or skin retraction Allergies and current medication updated:Yes SENSITIVE EXAM: The sensitive examination was discussed with the Patient or Patient's Authorized Rouge Presser. As applicable, any other physician, advance practice provider, medical student, or other health professional student that will be observing or involved in the sensitive examination for educational or training purposes was discussed with the Patient or Authorized Rouge Presser. The Patient or Authorized Rouge Presser has agreed to proceed with the sensitive examination. (Sensitive examination includes inspection and/or palpation of the breasts, pelvis, prostate and anorectal regions). EXAM: LMP 01/13/2007 BP 110/68 Ht 162.6 cm (5' 4) Wt 65.3 kg (144 lb) LMP 01/13/2007 BMI 24.72 kg/m? GENERAL: pleasant, female in no apparent distress HEENT: Normocephalic, atraumatic, mucus membranes moist, and no lesions NECK: Supple, full range of motion, no adenopathy, and thyroid normal DERMATOLOGY: Normal, without lesions, non-icteric, and non-hirsute BREAST: soft, non-tender, symmetric, no dominant mass, normal nipple-areolar complex, no lymphadenopathy, and no nipple discharge CHEST: Normal inspiratory effort ABDOMEN: soft, non-tender, and no masses PELVIC: external genitalia normal, normal Bartholin's glands, urethra, [place]'s glands, no vulvar lesions, good vaginal support, physiologic discharge present, normal appearing perineal body and perianal region, cervix surgically absent BIMANUAL: no adnexal masses, non-tender, and uterus surgically absent RECTOVAGINAL: deferred. NEURO: alert and oriented x3,exam grossly non-focal EXTREMITIES: normal ASSESSMENT/PLAN: 1. Encounter for gynecological examination with abnormal finding - ICD9: V72.31, ICD10: Z01.411 (primary diagnosis) - Completed pelvic and breast exam - Encouraged monthly BSE - Follow up for annual exam in one year. 2. Encounter for screening mammogram for breast cancer - ICD9: V76.12, ICD10: Z12.31 - Completed pelvic and breast exam - Encouraged monthly BSE - Follow up for annual exam in one year. - SAUNDRA SCREENING W TAMARA 3. Dense breast tissue - ICD9: 793.82, ICD10: R92.30 - SAUNDRA SCREENING W TAMARA 4. Vaginal atrophy - ICD9: 627.3, ICD10: N95.2 -Prescription for compounded vaginal estrogen sent to [facility] retail pharmacy 1) Health maintenance: Pap/HPV screening no longer needed Mammogram ordered Nutrition, exercise and routine health maintenance exams reviewed. Calcium/Vitamin D supplementation information provided. Smoking cessation: Smoking cessation encouraged and resources provided. Benefits of sm (more content not included)... Normal [facility] Alissa 10-05-2024 CNPN Telephone (OTOLST) MAYI MATA ([id number]) 1965 F Date Time Provider Department 10/05/24 MARY LOU HWANG OTOLSBhakti During your visit today, we recorded the following information about you: Allergies As of Date: 10/05/2024 Noted Allergy Reaction SERTRALINE 12/22/2007 6 - Diarrhea Date Reviewed: 10/03/2024 Reviewed by: Ashley Walls MA - Fully Assessed Prescriptions as of 10/05/2024 - escitalopram oxalate (LEXAPRO) 10 mg tablet Take 1 tablet by mouth once daily. - cyanocobalamin 1,000 mcg/mL Inject 1 mL subcutaneously once every month. - trimethoprim-polymyxin (POLYTRIM) 10,000 unit- 1 mg/mL ophthalmic solution Use 1 Drop in the right eye four times daily. - WEGOVY 0.25 mg/0.5 mL pen injector inject 1 syringe subcutaneously once weekly - fluticasone-salmeterol (ADVAIR DISKUS) 500-50 mcg/dose dsdv Inhale 1 Puff as instructed two times a day. Rinse mouth after use. - lansoprazole (PREVACID) 30 mg capsule TAKE NECESSARY - naproxen (NAPROSYN) 500 mg tablet Take 1 tablet by mouth two times a day as needed (for pain/inflammation). Take with food. - estradiol (E2) emollient cream 0.2 mg/gram (CPD) Insert fingertip amount vaginally every other day at bedtime - hydroCHLOROthiazide 25 mg tablet Take 25 mg by mouth once daily. - latanoprost (XALATAN) 0.005 % ophthalmic solution - multivitamin tablet Take 1 tablet by mouth once daily. - Insulin Syringe-Needle U-100 (BD INSULIN SYRINGE) 1 mL 25 x 1 syrg Use one a month for b12 injections - levothyroxine (SYNTHROID) 112 mcg tablet Take 1 tablet by mouth daily before breakfast. - lisinopril (ZESTRIL, PRINIVIL) 40 mg tablet Take 1 tablet by mouth once daily. - albuterol HFA (PROVENTIL HFA, VENTOLIN HFA) 90 mcg/actuation inhaler Inhale 2 Puffs as instructed every 4 hours as needed for Wheezing/Shortness of Breath. - COMPOUNDED PRESCRIPTION 3cc syringe and 25g 1 needle for B12 injections. - Cholecalciferol, Vitamin D3, 25 mcg (1,000 unit) cap Take 1,000 Units by mouth once daily. - Lovastatin 40 mg tablet Take 1 tablet by mouth twice daily. - insulin aspart (NOVOLOG) 100 unit/mL soln use as directed in insulin pump up to 50 units daily - blood sugar diagnostic (JaschaTOUCH ULTRA TEST) test strip CHECK BLOOD SUGARS 8 TIMES DAILY - COMPOUNDED PRESCRIPTION Metronic Minimed Insulin Pump Supples And life scan testing supplies use as directed - Lancets Misc lancets testing 8 times daily - BD ULTRA FINE LANCETS use as directed - ASPIRIN 81 MG ORAL TAB Take one(1) tablet daily. - VITAMIN C 500 MG ORAL TAB Take one(1) tablet daily. Problem List As Of Date 10/05/2024 Noted Resolved Type 1 diabetes mellitus (HCC) [E10.9] Hypothyroidism [E03.9] 04/06/2005 PURE HYPERCHOLESTEROLEM [E78.00] 04/06/2005 Mild intermittent asthma, uncomplicated [J45.20]04/25/2007 B12 DEFIC ANEMIA NEC [D51.8] 04/25/2007 ACNE VULGARIS: Inflammatory Grade III//IV: low*04/25/2007 HEADACHE [R51] 04/25/2007 NEVUS CHEST/BACK///BENIGN TAMMY SKIN TRUNK [D23.5]04/25/2007 02/16/2017 NEVUS///BENIGN TAMMY SKIN FACE NEC [D23.30] 04/25/2007 02/16/2017 NEVI////BENIGN TAMMY SCALP/SKIN NECK [D23.4] 04/25/2007 02/16/2017 SCARS: Acne-related (chin) [L90.5] 04/25/2007 02/16/2017 SOLAR LENTIGINES///DYSCHROMIA OTHER [L81.9] 06/18/2008 02/16/2017 ACTINIC DAMAGE///CHR SOLAR SKIN DAMAGE NOS [L57*06/18/2008 02/16/2017 Dermatitis due to cosmetics [L25.0] 06/18/2008 02/16/2017 Contact dermatitis and other eczema, due to uns*06/18/2008 02/16/2017 Contact dermatitis and other eczema due to othe*06/18/2008 02/16/2017 Solar Lentigines [L81.4] 02/18/2010 02/16/2017 Postinflammatory skin changes [R23.8] 07/20/2012 02/16/2017 Epidermal cyst [L72.0] 07/20/2012 02/16/2017 Alcohol abuse [F10.10] 02/22/2022 Encounter Status:Closed by COLEEN MCLAUGHLIN on 10/05/24 [facility] Alissa 10-04-2024 [facility] Telephone (OTOLST) MAYI MATA ([id number]) 1965 F Date Time Provider Department 10/04/24 MARY LOU HWANG OTELIESER During your visit today, we recorded the following information about you: Allergies As of Date: 10/04/2024 Noted Allergy Reaction SERTRALINE 12/22/2007 6 - Diarrhea Date Reviewed: 10/03/2024 Reviewed by: Ashley Walls MA - Fully Assessed Prescriptions as of 10/04/2024 - escitalopram oxalate (LEXAPRO) 10 mg tablet Take 1 tablet by mouth once daily. - cyanocobalamin 1,000 mcg/mL Inject 1 mL subcutaneously once every month. - trimethoprim-polymyxin (POLYTRIM) 10,000 unit- 1 mg/mL ophthalmic solution Use 1 Drop in the right eye four times daily. - WEGOVY 0.25 mg/0.5 mL pen injector inject 1 syringe subcutaneously once weekly - fluticasone-salmeterol (ADVAIR DISKUS) 500-50 mcg/dose dsdv Inhale 1 Puff as instructed two times a day. Rinse mouth after use. - lansoprazole (PREVACID) 30 mg capsule TAKE NECESSARY - naproxen (NAPROSYN) 500 mg tablet Take 1 tablet by mouth two times a day as needed (for pain/inflammation). Take with food. - estradiol (E2) emollient cream 0.2 mg/gram (CPD) Insert fingertip amount vaginally every other day at bedtime - hydroCHLOROthiazide 25 mg tablet Take 25 mg by mouth once daily. - latanoprost (XALATAN) 0.005 % ophthalmic solution - multivitamin tablet Take 1 tablet by mouth once daily. - Insulin Syringe-Needle U-100 (BD INSULIN SYRINGE) 1 mL 25 x 1 syrg Use one a month for b12 injections - levothyroxine (SYNTHROID) 112 mcg tablet Take 1 tablet by mouth daily before breakfast. - lisinopril (ZESTRIL, PRINIVIL) 40 mg tablet Take 1 tablet by mouth once daily. - albuterol HFA (PROVENTIL HFA, VENTOLIN HFA) 90 mcg/actuation inhaler Inhale 2 Puffs as instructed every 4 hours as needed for Wheezing/Shortness of Breath. - COMPOUNDED PRESCRIPTION 3cc syringe and 25g 1 needle for B12 injections. - Cholecalciferol, Vitamin D3, 25 mcg (1,000 unit) cap Take 1,000 Units by mouth once daily. - Lovastatin 40 mg tablet Take 1 tablet by mouth twice daily. - insulin aspart (NOVOLOG) 100 unit/mL soln use as directed in insulin pump up to 50 units daily - blood sugar diagnostic (ONETOUCH ULTRA TEST) test strip CHECK BLOOD SUGARS 8 TIMES DAILY - COMPOUNDED PRESCRIPTION Metronic Minimed Insulin Pump Supples And life scan testing supplies use as directed - Lancets Misc lancets testing 8 times daily - BD ULTRA FINE LANCETS use as directed - ASPIRIN 81 MG ORAL TAB Take one(1) tablet daily. - VITAMIN C 500 MG ORAL TAB Take one(1) tablet daily. Problem List As Of Date 10/04/2024 Noted Resolved Type 1 diabetes mellitus (HCC) [E10.9] Hypothyroidism [E03.9] 04/06/2005 PURE HYPERCHOLESTEROLEM [E78.00] 04/06/2005 Mild intermittent asthma, uncomplicated [J45.20]04/25/2007 B12 DEFIC ANEMIA NEC [D51.8] 04/25/2007 ACNE VULGARIS: Inflammatory Grade III//IV: low*04/25/2007 HEADACHE [R51] 04/25/2007 NEVUS CHEST/BACK///BENIGN TAMMY SKIN TRUNK [D23.5]04/25/2007 02/16/2017 NEVUS///BENIGN TAMMY SKIN FACE NEC [D23.30] 04/25/2007 02/16/2017 NEVI////BENIGN TAMMY SCALP/SKIN NECK [D23.4] 04/25/2007 02/16/2017 SCARS: Acne-related (chin) [L90.5] 04/25/2007 02/16/2017 SOLAR LENTIGINES///DYSCHROMIA OTHER [L81.9] 06/18/2008 02/16/2017 ACTINIC DAMAGE///CHR SOLAR SKIN DAMAGE NOS [L57*06/18/2008 02/16/2017 Dermatitis due to cosmetics [L25.0] 06/18/2008 02/16/2017 Contact dermatitis and other eczema, due to uns*06/18/2008 02/16/2017 Contact dermatitis and other eczema due to othe*06/18/2008 02/16/2017 Solar Lentigines [L81.4] 02/18/2010 02/16/2017 Postinflammatory skin changes [R23.8] 07/20/2012 02/16/2017 Epidermal cyst [L72.0] 07/20/2012 02/16/2017 Alcohol abuse [F10.10] 02/22/2022 Encounter Status:Closed by COLEEN MCLAUGHLIN Steve on 10/04/24 Normal [facility] CNOVon 10-03-2024 CNOV Office Visit (OTOLST ) MAYI MATA ([id number]) 1965 F Date Time Provider Department 10/03/24 2:30 PM MARY LOU HWANG OTOLST During your visit today, we recorded the following information about you: Mary Lou Hwang MD 10/03/2024 2:54 PM Signed History: Mayi Mata, a 59 year old female - IDDM - on pump, presents for f/up R parotid mass, noted 2 mos ago. No pain or change. FNA 09/25/24: neg for malig cells, limited cellularity, cyst contents and rare oncocytes. Suggestive of warthins. CT neck 09/21/24: 13 x 10 x 15 mm R parotid mass. Denies difficulty swallowing solids and liquids, pain with swallowing, hoarseness, shortness of breath, cough, hemoptysis, ear pain, throat clearing, post-nasal drip, fever, chills, weight loss. No history of thyroid disease/surgery. No history of trauma. smoke 1/3 ppd. Off alcohol. PE: Alert; oriented; well-developed; no apparent distress. Normal voice; normal communication. Neck: nontender, 1 cm well circ, relatively immobile mass ant-inf to tip of R mastoid, post to angle of mandible, no other lymphadenopathy or masses. No change. Thyroid: no masses. Face: symmetric, sinuses nontender, skin without lesions. Salivary glands: see neck Assessment/Plan: 13 x 10 x 15 mm R parotid mass. FNA neg for malig cells, limited cellularity, cyst contents and rare oncocytes. Suggestive of warthins. Rec R superficial parotidectomy. The procedure was discussed and the risks were reviewed. The risks include bleeding; infection; facial nerve injury resulting in lip weakness, difficulty raising eyebrow, difficulty closing eye; numbness/hypothesia near or on the ear, Collado's syndrome; sialocele. The patient understands and agrees to proceed. 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 - cyanocobalamin 1,000 mcg/mL Inject 1 mL subcutaneously once every month. - trimethoprim-polymyxin (POLYTRIM) 10,000 unit- 1 mg/mL ophthalmic solution Use 1 Drop in the right eye four times daily. - WEGOVY 0.25 mg/0.5 mL pen injector inject 1 syringe subcutaneously once weekly - fluticasone-salmeterol (ADVAIR DISKUS) 500-50 mcg/dose dsdv Inhale 1 Puff as instructed two times a day. Rinse mouth after use. - lansoprazole (PREVACID) 30 mg capsule TAKE NECESSARY - estradiol 0.01% estriol 0.01% cream (CPD) Use vaginally two times a week. - naproxen (NAPROSYN) 500 mg tablet Take 1 tablet by mouth two times a day as needed (for pain/inflammation). Take with food. - estradiol (E2) emollient cream 0.2 mg/gram (CPD) Insert fingertip amount vaginally every other day at bedtime - hydroCHLOROthiazide 25 mg tablet Take 25 mg by mouth once daily. - latanoprost (XALATAN) 0.005 % ophthalmic solution - multivitamin tablet Take 1 tablet by mouth once daily. - Insulin Syringe-Needle U-100 (BD INSULIN SYRINGE) 1 mL 25 x 1 syrg Use one a month for b12 injections - levothyroxine (SYNTHROID) 112 mcg tablet Take 1 tablet by mouth daily before breakfast. - lisinopril (ZESTRIL, PRINIVIL) 40 mg tablet Take 1 tablet by mouth once daily. - albuterol HFA (PROVENTIL HFA, VENTOLIN HFA) 90 mcg/actuation inhaler Inhale 2 Puffs as instructed every 4 hours as needed for Wheezing/Shortness of Breath. - COMPOUNDED PRESCRIPTION 3cc syringe and 25g 1 needle for B12 injections. - Cholecalciferol, Vitamin D3, 25 mcg (1,000 unit) cap Take 1,000 Units by mouth once daily. - Lovastatin 40 mg tablet Take 1 tablet by mouth twice daily. - insulin aspart (NOVOLOG) 100 unit/mL soln use as directed in insulin pump up to 50 units daily - blood sugar diagnostic (Curemark ULTRA TEST) test strip CHECK BLOOD SUGARS 8 TIMES DAILY - COMPOUNDED PRESCRIPTION Metronic Minimed Insulin Pump Supples And life scan testing supplies use as directed - Lancets Misc lancets testing 8 times daily - BD ULTRA FINE LANCETS use as directed - ASPIRIN 81 MG ORAL TAB Take one(1) tablet daily. - VITAMIN C 500 MG ORAL TAB Take one(1) tablet daily. Problem List As Of Date 10/03/2024 Noted Resolved Type 1 diabetes mellitus (HCC) [E10.9] Hypothyroidism [E03.9] 04/06/2005 PURE HYPERCHOLESTEROLEM [E78.00] 04/06/2005 Mild intermittent asthma, uncomplicated [J45.20]04/25/2007 B12 DEFIC ANEMIA NEC [D51.8] 04/25/2007 ACNE VULGARIS: Inflammatory Grade III//IV: low* (more content not included)... Normal [facility] Hemoccult Stl Ql IAon 2024 Lower GI hemoglobin IA Ql (Stl) Negative Normal Negative [facility] Comment on above: Order Comment: Speci men Type: STOOL SPECIMEN [facility] Address: [address] [place] [address] Performed By: #### 2 9771-3 #### [facility] CLIA [id number] [address] [place] [address] [place] [address] [place] CBC W Auto Differential pane l (Bld)on 09-26-2024 Basophils (Bld) [#/Vol] 0.07 10*3/uL Normal <0.11 [facility] Comment on above: Order Comment: Speci men Type: BLOOD SPECIMEN [facility] Address: [address] [place] [address] Performed By: #### 5 7021-8 #### [facility] CLIA [id number] [address] [place] [address] [place] Basophils/100 WBC (Bld) 0.7 % Normal [facility] Comment on above: Order Comment: Speci men Type: BLOOD SPECIMEN [facility] Address: [address] [place] [address] Performed By: #### 5 7021-8 #### [facility] CLIA [id number] [address] [place] [address] [place] Differential cell count method Nom (Bld) Auto Normal [facility] Comment on above: Order Comment: Speci men Type: BLOOD SPECIMEN [facility] Address: [address] [place] [address] Performed By: #### 5 7021-8 #### [facility] CLIA [id number] [address] [place] [address] [place] Eosinophils (Bld) [#/Vol] 0.30 10*3/uL Normal <0.46 [facility] Comment on above: Order Comment: Speci men Type: BLOOD SPECIMEN [facility] Address: [address] [place] [address] Performed By: #### 5 7021-8 #### [facility] CLIA [id number] [address] [place] [address] [place] Eosinophils/100 WBC (Bld) 3.0 % Normal [facility] Comment on above: Order Comment: Speci men Type: BLOOD SPECIMEN [facility] Address: [address] [place] [address] Performed By: #### 5 7021-8 #### [facility] CLIA [id number] [address] [place] [address] [place] Erythrocyte distribution width (RBC) [Ratio] 11.9 % Normal 11.5-15.0 [facility] Comment on above: Order Comment: Speci men Type: BLOOD SPECIMEN [facility] Address: [address] [place] [address] Performed By: #### 5 7021-8 #### [facility] CLIA [id number] [address] [place] [address] [place] Hematocrit (Bld) [Volume fraction] 36.5 % Normal 36.0-46.0 [facility] Comment on above: Order Comment: Speci men Type: BLOOD SPECIMEN [facility]: [facility] Address: [address] [place] [address] Performed By: #### 5 7021-8 #### [facility] CLIA [id number] [address] [place] [address] [place] Hemoglobin (Bld) [Mass/Vol] 12.1 g/dL Normal 11.5-15.5 [facility] Comment on above: Order Comment: Speci men Type: BLOOD SPECIMEN [facility]: [facility] Address: [address] [place] [address] Performed By: #### 5 7021-8 #### [facility] CLIA [id number] [address] [place] [address] [place] Immature granulocytes (Bld) [#/Vol] 0.03 10*3/uL Normal <0.10 [facility] Comment on above: Order Comment: Speci men Type: BLOOD SPECIMEN [facility]ing Facility: [facility] Address: [address] [place] [address] Performed By: #### 5 7021-8 #### [facility] CLIA [id number] [address] [place] [address] [place] Immature granulocytes/100 WBC (Bld) 0.3 % Normal [facility] Comment on above: Order Comment: Speci men Type: BLOOD SPECIMEN [facility]ing Facility: [facility] Address: [address] [place] [address] Performed By: #### 5 7021-8 #### [facility] CLIA [id number] [address] [place] [address] [place] Lymphocytes (Bld) [#/Vol] 2.58 10*3/uL Normal 1.00-4.00 [facility] Comment on above: Order Comment: Speci men Type: BLOOD SPECIMEN Ordering Facility[facility] Address: [address] [place] [address] Performed By: #### 5 7021-8 #### [facility] CLIA [id number] [address] [place] [address] [place] Lymphocytes/100 WBC (Bld) 26.2 % Normal [facility] Comment on above: Order Comment: Speci men Type: BLOOD SPECIMEN Ordering Facility: [facility] Address: [address] [place] [address] Performed By: #### 5 7021-8 #### [facility] CLIA [id number] [address] [place] [address] [place] MCH (RBC) [Entitic mass] 31.3 pg Normal 26.0-34.0 [facility] Comment on above: Order Comment: Speci men Type: BLOOD SPECIMEN Ordering Facility: [facility] Address: [address] [place] [address] Performed By: #### 5 7021-8 #### [facility] CLIA [id number] [address] [place] [address] [place] MCHC (RBC) [Mass/Vol] 33.2 g/dL Normal 30.5-36.0 [facility] Comment on above: Order Comment: Speci men Type: BLOOD SPECIMEN Ordering Facility: [facility] Address: [address] [place] [address] Performed By: #### 5 7021-8 #### [facility] CLIA [id number] [address] [place] [address] [place] MCV (RBC) [Entitic vol] 94.3 fL Normal 80.0-100.0 [facility] Comment on above: Order Comment: Speci men Type: BLOOD SPECIMEN Ordering Facility: [facility] Address: [address] [place] [address] Performed By: #### 5 7021-8 #### [facility] CLIA [id number] [address] [place] [address] [place] Monocytes (Bld) [#/Vol] 0.53 10*3/uL Normal <0.87 [facility] Comment on above: Order Comment: Speci men Type: BLOOD SPECIMEN Ordering Facility: [facility] Address: [address] [place] [address] Performed By: #### 5 7021-8 #### [facility] CLIA [id number] [address] [place] [address] [place] Monocytes/100 WBC (Bld) 5.4 % Normal [facility] Comment on above: Order Comment: Speci men Type: BLOOD SPECIMEN Ordering Facility: [facility] Address: [address] [place] [address] Performed By: #### 5 7021-8 #### [facility] CLIA [id number] [address] [place] [address] [place] Neutrophils (Bld) [#/Vol] 6.35 10*3/uL Normal 1.45-7.50 [facility] Comment on above: Order Comment: Speci men Type: BLOOD SPECIMEN Ordering Facility: [facility] Address: [address] [place] [address] Performed By: #### 5 7021-8 #### [facility] CLIA [id number] [address] [id number] [address] [place] Neutrophils/100 WBC (Bld) 64.4 % Normal [facility] Comment on above: Order Comment: Speci men Type: BLOOD SPECIMEN Ordering Facility: [facility] Address: [address] [place] [address] Performed By: #### 5 7021-8 #### [facility] CLIA [id number] [address] [place] [address] [place] Nucleated RBC (Bld) [#/Vol] 10*3/uL Normal <0.01 [facility] Comment on above: Order Comment: Speci men Type: BLOOD SPECIMEN Ordering Facility: [facility] Address: [address] [place] [address] Performed By: #### 5 7021-8 #### [facility] CLIA [id number] [address] [place] [address] [place] Nucleated RBC/100 WBC (Bld) [Ratio] 0.0 /100 WBC Normal [facility] Comment on above: Order Comment: Speci men Type: BLOOD SPECIMEN Ordering Facility: [facility] Address: [address] [place] [address] Performed By: #### 5 7021-8 #### [facility] CLIA [id number] [address] [place] [address] [place] Platelet mean volume (Bld) [Entitic vol] 9.8 fL Normal 9.0-12.7 [facility] Comment on above: Order Comment: Speci men Type: BLOOD SPECIMEN Ordering Facility: [facility] Address: [address] [place] [address] Performed By: #### 5 7021-8 #### [facility] CLIA [id number] [address] [place] [address] [place] Platelets (Bld) [#/Vol] 387 10*3/uL Normal 150-400 [facility] Comment on above: Order Comment: Speci men Type: BLOOD SPECIMEN Ordering Facility: [facility] Address: [address] [place] [address] Performed By: #### 5 7021-8 #### [facility] CLIA [id number] [address] [place] [address] [place] RBC (Bld) [#/Vol] 3.87 10*6/uL Low 3.90-5.20 [facility] Comment on above: Order Comment: Speci men Type: BLOOD SPECIMEN Ordering Facility: [facility] Address: [address] [place] [address] Performed By: #### 5 7021-8 #### [facility] CLIA [id number] [address] [place] [address] [place] WBC (Bld) [#/Vol] 9.86 10*3/uL Normal 3.70-11.00 [facility] Comment on above: Order Comment: Speci men Type: BLOOD SPECIMEN Ordering Facility: [facility] Address: [address] [place] [address] Performed By: #### 5 7021-8 #### [facility] CLIA [id number] [address] [place] [address] [place] Ferritin SerPl-mCncon 2024 Ferritin [Mass/Vol] 175.0 ng/mL Normal 14.7-205.1 [facility] Comment on above: Order Comment: Speci men Type: STOOL SPECIMEN Ordering Facility: [facility] Address: [address] [place] [address] Performed By: #### 2 9771-3 #### [facility] CLIA [id number] [address] [place] [address] [place] Folate SerPl-mCncon 09-27-19 25 Folate [Mass/Vol] ng/mL Normal >4.7 [facility] Comment on above: Order Comment: Speci men Type: STOOL SPECIMEN Ordering Facility: [facility] Address: [address] [place] [address] Result Comment: A re sult of > 20 ng/mL is not necessarily indicative of a pathologic or treatable condition: it reflects a limitation of the test methodology. Assay reference range: 4.8 to 24.2 ng/mL. Suitable for detection of folate deficiency. Reference: Folate III (Folate III) [package insert V 1.0 Czech]. [facility], [place], [place]: April 2015. Performed By: #### 2 9771-3 #### [facility] CLIA [id number] [address] [place] [address] [place] Iron and Iron binding capaci ty panelon 09-26-2024 Iron [Mass/Vol] 100 ug/dL Normal 41-186 [facility] Comment on above: Order Comment: Speci men Type: STOOL SPECIMEN Ordering Facility: [facility] Address: [address] [place] [address] Performed By: #### 2 9771-3 #### [facility] CLIA [id number] [address] [place] [address] [place] [facility] Iron binding capacity [Mass/Vol] 293 ug/dL Normal 232-386 [facility] Comment on above: Order Comment: Speci men Type: STOOL SPECIMEN Ordering Facility: [facility] Address: [address] [place] [address] Performed By: #### 2 9771-3 #### [facility] CLIA [id number] [address] [place] [address] [place] Iron/TIBC [Molar ratio] 34.1 % Normal 15.0-57.0 [facility] Comment on above: Order Comment: Speci men Type: STOOL SPECIMEN Ordering Facility: [facility] Address: [address] [place] [address] Performed By: #### 2 9771-3 #### [facility] CLIA [id number] [address] [place] [address] [place] [facility] Cobalamin (Vitamin B12) [Mass/Vol] 374 pg/mL Normal 232-1245 [facility] Comment on above: Order Comment: Speci men Type: STOOL SPECIMEN Ordering Facility: [facility] Address: [address] [place] [address] Performed By: #### 2 9771-3 #### [facility] CLIA [id number] [address] [place] [address] [place] CNOVon 09-25-2024 CNOV Office Visit (OTOLST ) MAYI MATA ([id number]) 1965 F Date Time Provider Department 09/25/24 7:30 AM MARY LOU HWANG OTOLST During your visit today, we recorded the following information about you: Mary Lou Hwang MD 09/25/2024 8:32 AM Signed History: Mayi Mata is seen at the request of Dr. William Steinberg. Mayi Mata, a 59 year old female - IDDM - on pump, presents for evaluation of R parotid mass, noted 2 mos ago. No pain or change. CT neck 09/21/24: 13 x 10 x 15 mm R parotid mass. Denies difficulty swallowing solids and liquids, pain with swallowing, hoarseness, shortness of breath, cough, hemoptysis, ear pain, throat clearing, post-nasal drip, fever, chills, weight loss. No history of thyroid disease/surgery. No history of trauma. smoke 1/3 ppd. Off alcohol. CBC 09/18/24: HCT 34. ESR 09/18/24: 27. 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 Other acne Other vitamin B12 deficiency anemia Snoring Type I (juvenile type) diabetes mellitus without mention of complication, not stated as uncontrolled (HCC) Unspecified asthma, with status asthmaticus Unspecified hypothyroidism PAST SURGICAL HISTORY Procedure Laterality Date APPENDECTOMY COLONOSCOPY 07/12/2016 Repeat colonoscopy 2018 COLONOSCOPY SCREENING 07/13/2021 OOPHORECTOMY PARTIAL/TOTAL UNI/BI 03/2007 right oophorectomy PAST SURGICAL HISTORY OF LAPAROSCOPY TOTAL ABDOMINAL HYSTERECT W/WO RMVL TUBE OVARY 03/2007 Hysterectomy, IVY PE: Alert; oriented; well-developed; no apparent distress. Normal voice; normal communication. Eyes: EOMI, pupils symmetric and reactive bilaterally. Nose: patent, normal mucosa, no congestion, no rhinorrhea. Oral cavity, oropharynx: No ulcerative or mass lesions, tongue midline, palate elevates symmetrically, tongue base and floor of mouth soft. Neck: nontender, 1 cm well circ, relatively immobile mass ant-inf to tip of R mastoid, post to angle of mandible, no other lymphadenopathy or masses. Thyroid: no masses. Face: symmetric, sinuses nontender, skin without lesions. Salivary glands: see neck Ears: EACs free of lesions. TMs clear and mobile. Neurologic: junior business analyst II-XII grossly intact. Procedure: Flexible laryngoscopy. Indication: Neck mass. R/o pharyngeal/laryngeal lesion. Description of procedure: Neosynephrine/xylocaine was sprayed into the patient's nose. A flexible laryngoscope was passed through the patient's nose. The nasopharynx was free of ulcerative or mass lesions. The hypopharynx was free of ulcerative or mass lesions. The larynx was free of ulcerative or mass lesions. Normal bilateral vocal cord mobility. Assessment/Plan: 13 x 10 x 15 mm R parotid mass. Rec FNA. F/up 1 wk. Likely will benefit from R sup parotid. Procedure: FNA of R parotid mass. Description of procedure: The site was prepped with betadine. A 22-gauge needle was inserted into the mass. Small amount of yellow turbid fluid aspirated. The contents were placed onto slides and cytolyte. No complications. Plan: F/up in 1 week for review of pathology. Procedure: FNA of right parotid mass Informed Consent Consent Obtained: Written [place] Protocol A moment to CARE was completed SIGN IN Sign in communication not applicable due to emergent procedure Personnel directly involved with the procedure wore the appropriate PPE Special Equipment: Yes Patient/Surrogate Stated/Verified: Patient name, Date of , Relevant allergies and Intended procedure TIME OUT Relevant labs, photos, and/or imaging studies have been reviewed. Intended patient and procedure match source documents. Consent obtained and matches the intended procedure Correct side/site marked and visible. No medications required for procedure. No fire risk assessment and interventions applicable. No implant(s) inserted. SIGN OUT All specimens correctly labeled and sent. All instruments, equipment, possible retained foreign bodies accounted for. The post-procedure POC has been communicated to the patient or surrogate. Post-procedure POC communicated to patient's multidisciplinary team (including bedside nurse for hospitalized patients). CC: Maryan Medical Decision Making: Problems: Moderate: New problem with uncertain prognosis Data: Unique test result(s) reviewed: 3+ Risk: Low: Low risk from testing/treatment Medical Decision Making Level: 4 - Moderate Referring Provider: WILLIAM STEINBERG [[id number]] Allergies As of Date: 09/25/2024 Noted Allergy Reaction SERTRALINE 12/22/2007 6 - Diarrhea Date Reviewed: 09/25/2024 Reviewed by: Coleen Mclaughlin RN - Fully Assessed Reason for Visit: New Patient [172] Cmt: Behind right ear bump Visit Diagnosis:Mass of right parotid gland [K11.8] Order(s):CONSULT TO ENT [9008] Order #: [id number]: 1 CYTOLOGY NON-TRANSPORT AIRCREWMAN [[id number] (more content not included)... Normal [facility] CYTOLOGY NON-GYNon 5 AP DISCLAIMER Normal [facility] Comment on above: Order Comment: Speci men Type: SPECIMEN OBTAINED BY ASPIRATIONOrdering Facility: [facility] Address: [address] [place] [address] Result Comment: Gaurang Lees Test (LDT) Disclaimer: Performance characteristics of immunohistochemical, immunofluorescent, and chromogenic in-situ hybridization tests have been determined by the performing laboratory within [facility]'s Shruthi Bryan [facility] and Laboratory Medicine Department ([facility], [facility], [facility], [place], [facility], [facility], or [facility]) in a manner consistent with CLIA requirements. One or more of these tests may not have been cleared or approved by the FDA. [facility] is regulated under CLIA as qualified to perform high-complexity testing. These tests are used for clinical purposes. These should not be regarded as investigational or for research. Positive and negative controls stain appropriately. Performed By: #### C ONON ####[facility] [id number] [place] [id number] [facility] LABCLIA [id number] [address] CASE REPORT Normal [facility] Comment on above: Order Comment: Speci men Type: SPECIMEN OBTAINED BY ASPIRATIONOrdering Facility: [facility] Address: [address] [place] [address] Result Comment: [facility] Cytology Report Case: [id number] Authorizing Provider: Mary Lou Hwang MD Collected: 09/25/2024 07:52 AM Ordering Location: Otolaryngology Received: 09/25/2024 09:15 AM Pathologist: Ant Guy MD Specimen: Parotid Gland, Right Performed By: #### C YTONON ####[facility] [id number] [address] LABCLIA [id number] [address] CLINICAL HISTORY 1.5 cm R parotid mass Normal [facility] Comment on above: Order Comment: Speci men Type: SPECIMEN OBTAINED BY ASPIRATIONOrdering Facility: [facility] Address: [address] [place] [address] Performed By: #### C YTONON ####[facility]IA [id number] [address] LABCLIA [id number] [address] DIAGNOSIS COMMENT The aspirate sample consists predominately of cyst contents with rare oncocytes present. 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 Clinical correlation, however, is needed. Normal [facility] Comment on above: Order Comment: Speci men Type: SPECIMEN OBTAINED BY ASPIRATIONOrdering Facility: [facility] Address: [address] [place] [address] Performed By: #### C YTONON ####[facility] LABCLIA [id number] [address] LABCLIA [id number] [address] FINAL DIAGNOSIS Normal [facility] Comment on above: Order Comment: Speci men Type: SPECIMEN OBTAINED BY ASPIRATIONOrdering Facility: [facility] Address: [address] [place] [address] Result Comment: A - Parotid Gland, Right, FNA Negative for malignant cells. Limited cellularity. Cyst contents and rare oncocytes. See comment. The following cell blocks were associated with this case: A1 Cell Block, Alcohol Fixed at 1425 EDT Performed By: #### C YTONON ####[facility]IA [id number] [address] LABCLIA [id number] [address] FINAL PERFORMING LAB Normal [facility] Comment on above: Order Comment: Speci men Type: SPECIMEN OBTAINED BY ASPIRATIONOrdering Facility: [facility] Address: [address] [place] [address] Result Comment: Tech nical component, casting supervisor screening performed at: [facility], [address] [place], [place] [id number] CLIA: [id number] Diagnostic interpretation performed at: [facility], [address] [place] [address] [place] [address] CLIA# [id number] Supervisor Tan Room: Alessio Costa MD Performed By: #### C YTONON ####[facility] LAB[facility]IA [id number] [address] LABCLIA [id number] [address] OF [facility] GROSS DESCRIPTION Normal [facility] Comment on above: Order Comment: Speci men Type: SPECIMEN OBTAINED BY ASPIRATIONOrdering Facility: [facility] Address: [address] [place] [address] Result Comment: A. P arotid Gland, Right 30 cc cloudy colorless CytoLyt with scant particles. ThinPrep and Cell Block prepared and 4 smears. Performed By: #### C YTONON ####[facility]IA [id number] [address] LABCLIA [id number] [address] CNPNon 09-21-2024 CNPN Telephone (FAMWS) MAYI MATA ([id number]) 1965 F Date Time Provider Department 09/21/24 WILLIAM STEINBERG [facility] During your visit today, we recorded the following information about you: William Steinberg MD 09/21/2024 12:[address] findings with patient. Set up with ENT Humaira Juan 09/21/2024 4:02 PM Signed Spoke with patient and scheduled. Humaira Rehman Allergies As of Date: 09/21/2024 Noted Allergy Reaction SERTRALINE 12/22/2007 6 - Diarrhea Date Reviewed: 09/20/2024 Reviewed by: Erin Blanchard RT(R) - Fully Assessed Reason for Visit: Results [95] Primary Visit Diagnosis:Mass of right parotid gland [K11.8] Order(s):CONSULT TO ENT [9008] Order #: [id number]: 1 FUTURE Prescriptions as of 09/21/2024 - cyanocobalamin 1,000 mcg/mL Inject 1 mL subcutaneously once every month. - trimethoprim-polymyxin (POLYTRIM) 10,000 unit- 1 mg/mL ophthalmic solution Use 1 Drop in the right eye four times daily. - WEGOVY 0.25 mg/0.5 mL pen injector inject 1 syringe subcutaneously once weekly - fluticasone-salmeterol (ADVAIR DISKUS) 500-50 mcg/dose dsdv Inhale 1 Puff as instructed two times a day. Rinse mouth after use. - lansoprazole (PREVACID) 30 mg capsule TAKE NECESSARY - escitalopram oxalate (LEXAPRO) 10 mg tablet Take 1 tablet by mouth once daily. - estradiol 0.01% estriol 0.01% cream (CPD) Use vaginally two times a week. - naproxen (NAPROSYN) 500 mg tablet Take 1 tablet by mouth two times a day as needed (for pain/inflammation). Take with food. - estradiol (E2) emollient cream 0.2 mg/gram (CPD) Insert fingertip amount vaginally every other day at bedtime - hydroCHLOROthiazide 25 mg tablet Take 25 mg by mouth once daily. - latanoprost (XALATAN) 0.005 % ophthalmic solution - multivitamin tablet Take 1 tablet by mouth once daily. - Insulin Syringe-Needle U-100 (BD INSULIN SYRINGE) 1 mL 25 x 1 syrg Use one a month for b12 injections - levothyroxine (SYNTHROID) 112 mcg tablet Take 1 tablet by mouth daily before breakfast. - lisinopril (ZESTRIL, PRINIVIL) 40 mg tablet Take 1 tablet by mouth once daily. - albuterol HFA (PROVENTIL HFA, VENTOLIN HFA) 90 mcg/actuation inhaler Inhale 2 Puffs as instructed every 4 hours as needed for Wheezing/Shortness of Breath. - COMPOUNDED PRESCRIPTION 3cc syringe and 25g 1 needle for B12 injections. - Cholecalciferol, Vitamin D3, 25 mcg (1,000 unit) cap Take 1,000 Units by mouth once daily. - Lovastatin 40 mg tablet Take 1 tablet by mouth twice daily. - insulin aspart (NOVOLOG) 100 unit/mL soln use as directed in insulin pump up to 50 units daily - blood sugar diagnostic (JaschaTOUCH ULTRA TEST) test strip CHECK BLOOD SUGARS 8 TIMES DAILY - COMPOUNDED PRESCRIPTION Metronic Minimed Insulin Pump Supples And life scan testing supplies use as directed - Lancets Misc lancets testing 8 times daily - BD ULTRA FINE LANCETS use as directed - ASPIRIN 81 MG ORAL TAB Take one(1) tablet daily. - VITAMIN C 500 MG ORAL TAB Take one(1) tablet daily. Problem List As Of Date 09/21/2024 Noted Resolved Type 1 diabetes mellitus (HCC) [E10.9] Hypothyroidism [E03.9] 04/06/2005 PURE HYPERCHOLESTEROLEM [E78.00] 04/06/2005 Mild intermittent asthma, uncomplicated [J45.20]04/25/2007 B12 DEFIC ANEMIA NEC [D51.8] 04/25/2007 ACNE VULGARIS: Inflammatory Grade III//IV: low*04/25/2007 HEADACHE [R51] 04/25/2007 NEVUS CHEST/BACK///BENIGN TAMMY SKIN TRUNK [D23.5]04/25/2007 02/16/2017 NEVUS///BENIGN TAMMY SKIN FACE NEC [D23.30] 04/25/2007 02/16/2017 NEVI////BENIGN TAMMY SCALP/SKIN NECK [D23.4] 04/25/2007 02/16/2017 SCARS: Acne-related (chin) [L90.5] 04/25/2007 02/16/2017 SOLAR LENTIGINES///DYSCHROMIA OTHER [L81.9] 06/18/2008 02/16/2017 ACTINIC DAMAGE///CHR SOLAR SKIN DAMAGE NOS [L57*06/18/2008 02/16/2017 Dermatitis due to cosmetics [L25.0] 06/18/2008 02/16/2017 Contact dermatitis and other eczema, due to uns*06/18/2008 02/16/2017 Contact dermatitis and other eczema due to othe*06/18/2008 02/16/2017 Solar Lentigines [L81.4] 02/18/2010 02/16/2017 Postinflammatory skin changes [R23.8] 07/20/2012 02/16/2017 Epidermal cyst [L72.0] 07/20/2012 02/16/2017 Alcohol abuse [F10.10] 02/22/2022 Encounter Status:Closed by HUMAIRA REHMAN on 09/21/24 Normal [facility] CT NECK SOFT TISSUE W IVCONo n 09-21-2024 CT NECK SOFT TISSUE W IVCON * * *Final Report* * * DATE OF EXAM: Sep 21 2024 9:08AM [facility] 0013 - CT NECK SOFT TISSUE W IVCON / PROCEDURE REASON: Neck mass * * * * Physician Interpretation * * * * EXAMINATION: CT NECK SOFT TISSUE W IVCON HISTORY: Lump behind her right ear about 2-3 months ago. Has not changed in size. Sometimes it's sore. No drainage. No fevers. No lumps or bumps elsewhere. No ear pain. No rashes or sore throat. Technique: CT of the soft tissues of the neck with IV contrast. A series of contiguous helical scans were performed from the skull base to the aortic arch. M: [id number]_1 Contrast: 100 mL Omnipaque [address] Dose-Length Product (DLP): 575 mGy*cm CT Dose Reduction Employed: Automated exposure control(AEC) and iterative recon COMPARISON: None. RESULT: Postoperative change: None apparent. Suprahyoid Neck: Nasopharynx and oropharynx appear normal. Parapharyngeal tissue planes are preserved. Oral cavity and floor of mouth appear normal within constraints of artifact from dental amalgam. There is an oval 13 x 10 x 15 mm (AP, TV, SI) slightly hyperattenuating nodular lesion in the dorsal aspect of the right parotid lobe (series 7, image 62) (series 9, image 41) Parotid and submandibular spaces are otherwise normal. Computer Programmer Analyst spaces appear normal. Infrahyoid Neck: Hypopharynx, larynx, and imaged infraglottic trachea appear normal. Imaged upper esophagus is unremarkable. Thyroid gland is homogeneous without evidence of discrete nodule. Lymph Nodes: No cervical lymphadenopathy by size criteria. Scattered normal sized lymph nodes without suspicious morphologic features. Carotid Space: No masses. Patent extracranial carotid systems and internal jugular veins bilaterally. Orbits, Face and Skull Base: Orbital soft tissue planes are preserved. There is mild mucosal thickening and small layering fluid in the right maxillary sinus. Paranasal sinuses are otherwise clear. . Mastoid air cells and middle ear cavities are clear. . No evidence of an osteolytic or osteoblastic process in the skull base. . . Imaged intracranial contents: No enhancement, no mass effect, and no hydrocephalus. Cervical spine and remaining osseous structures: Alignment is normal. No discrete osteolytic or osteoblastic process. Moderate spondylotic changes in the visualized spine. Lung apices: No mass and no focal consolidation in imaged lung apices. Other: Not applicable. Assembly Machine Offbearer (topogram) images: No significant findings. IMPRESSION: 1. Oval 15 mm slightly hyperattenuating nodular lesion in the dorsal aspect of the right parotid lobe, which may represent a primary parotid neoplasm. 2. No cervical lymphadenopathy by size criteria. 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: [facility] Transcribe Date/Time: Sep 21 2024 11:12A Dictated by : SERENITY ANDRES MD This examination was interpreted and the report reviewed and electronically signed by: SERENITY ANDRES MD on Sep 21 2024 11:25AM EST [id number] Normal [facility] CT Neck W contrast Varsha 03-2 IMPRESSION: 1. Oval 15 mm slightly hyperattenuating nodular lesion in the dorsal aspect of the right parotid lobe, which may represent a primary parotid neoplasm. 2. No cervical lymphadenopathy by size criteria. 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: [facility] Transcribe Date/Time: Sep 21 2024 11:12A Dictated by : SERENITY ANDRES MD This examination was interpreted and the report reviewed and electronically signed by: SERENITY ANDRES MD on Sep 21 2024 11:25AM EST DIVISION OF RADIOLOGY * * *Final Report* * * DATE OF EXAM: Sep 21 2024 9:08AM [facility] 0013 - CT NECK SOFT TISSUE W IVCON / PROCEDURE REASON: Neck mass * * * * Physician Interpretation * * * * EXAMINATION: CT NECK SOFT TISSUE W IVCON HISTORY: Lump behind her right ear about 2-3 months ago. Has not changed in size. Sometimes it's sore. No drainage. No fevers. No lumps or bumps elsewhere. No ear pain. No rashes or sore throat. Technique: CT of the soft tissues of the neck with IV contrast. A series of contiguous helical scans were performed from the skull base to the aortic arch. M: CTNW_1 Contrast: 100 mL Omnipaque [address] Dose-Length Product (DLP): 575 mGy*cm CT Dose Reduction Employed: Automated exposure control(AEC) and iterative recon COMPARISON: None. RESULT: Postoperative change: None apparent. Suprahyoid Neck: Nasopharynx and oropharynx appear normal. Parapharyngeal tissue planes are preserved. Oral cavity and floor of mouth appear normal within constraints of artifact from dental amalgam. There is an oval 13 x 10 x 15 mm (AP, TV, SI) slightly hyperattenuating nodular lesion in the dorsal aspect of the right parotid lobe (series 7, image 62) (series 9, image 41) Parotid and submandibular spaces are otherwise normal. Computer Programmer Analyst spaces appear normal. Infrahyoid Neck: Hypopharynx, larynx, and imaged infraglottic trachea appear normal. Imaged upper esophagus is unremarkable. Thyroid gland is homogeneous without evidence of discrete nodule. Lymph Nodes: No cervical lymphadenopathy by size criteria. Scattered normal sized lymph nodes without suspicious morphologic features. Carotid Space: No masses. Patent extracranial carotid systems and internal jugular veins bilaterally. Orbits, Face and Skull Base: Orbital soft tissue planes are preserved. There is mild mucosal thickening and small layering fluid in the right maxillary sinus. Paranasal sinuses are otherwise clear. . Mastoid air cells and middle ear cavities are clear. . No evidence of an osteolytic or osteoblastic process in the skull base. . . Imaged intracranial contents: No enhancement, no mass effect, and no hydrocephalus. Cervical spine and remaining osseous structures: Alignment is normal. No discrete osteolytic or osteoblastic process. Moderate spondylotic changes in the visualized spine. Lung apices: No mass and no focal consolidation in imaged lung apices. Other: Not applicable. Assembly Machine Offbearer (topogram) images: No significant findings. DIVISION OF RADIOLOGY Provider, [facility] - 09/21/2024 * * *Final Report* * * DATE OF EXAM: Sep 21 2024 9:08AM [facility] 0013 - CT NECK SOFT TISSUE W IVCON / PROCEDURE REASON: Neck mass * * * * Physician Interpretation * * * * EXAMINATION: CT NECK SOFT TISSUE W IVCON HISTORY: Lump behind her right ear about 2-3 months ago. Has not changed in size. Sometimes it's sore. No drainage. No fevers. No lumps or bumps elsewhere. No ear pain. No rashes or sore throat. Technique: CT of the soft tissues of the neck with IV contrast. A series of contiguous helical scans were performed from the skull base to the aortic arch. M: CTNW_1 Contrast: 100 mL Omnipaque [address] Dose-Length Product (DLP): 575 mGy*cm CT Dose Reduction Employed: Automated exposure control(AEC) and iterative recon COMPARISON: None. RESULT: Postoperative change: None apparent. Suprahyoid Neck: Nasopharynx and oropharynx appear normal. Parapharyngeal tissue planes are preserved. Oral cavity and floor of mouth appear normal within constraints of artifact from dental amalgam. There is an oval 13 x 10 x 15 mm (AP, TV, SI) slightly hyperattenuating nodular lesion in the dorsal aspect of the right parotid lobe (series 7, image 62) (series 9, image 41) Parotid and submandibular spaces are otherwise normal. Computer Programmer Analyst spaces appear normal. Infrahyoid Neck: Hypopharynx, larynx, and imaged infraglottic trachea appear normal. Imaged upper esophagus is unremarkable. Thyroid gland is homogeneous without evidence of discrete nodule. Lymph Nodes: No cervical lymphadenopathy by size criteria. Scattered normal sized lymph nodes without suspicious morphologic features. Carotid Space: No masses. Patent extracranial carotid systems and internal jugular veins bilaterally. Orbits, Face and Skull Base: Orbital soft tissue planes are preserved. There is mild mucosal thickening and small layering fluid in the right maxillary sinus. Paranasal sinuses are otherwise clear. . Mastoid air cells and middle ear cavities are clear. . No evidence of an osteolytic or osteoblastic process in the skull base. . . Imaged intracranial contents: No enhancement, no mass effect, and no hydrocephalus. Cervical spine and remaining osseous structures: Alignment is normal. No discrete osteolytic or osteoblastic process. Moderate spondylotic changes in the visualized spine. Lung apices: No mass and no focal consolidation in imaged lung apices. Other: Not applicable. Assembly Machine Offbearer (topogram) images: No significant findings. IMPRESSION IMPRESSION: 1. Oval 15 mm slightly hyperattenuating nodular lesion in the dorsal aspect of the right parotid lobe, which may represent a primary parotid neoplasm. 2. No cervical lymphadenopathy by size criteria. 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: [facility] Transcribe Date/Time: Sep 21 2024 11:12A Dictated by : SERENITY ANDRES MD This examination was interpreted and the report reviewed and electronically signed by: SERENITY ANDRES MD on Sep 21 2024 11:25AM EST [facility] Radiology Study observation (narrative) [facility] CT Neck W contrast IVOrdered By: [facility] Provider on 09-21-2024 [facility] CNPNon 09-19-2024 [facility] MAYI MATA ([id number]) 1965 F Date Time Provider Department 09/19/24 WILLIAM [facility]INBERG [facility] During your visit today, we recorded the following information about you: William Steinberg MD 09/19/2024 4:42 PM Signed Sodium is slightly low but not bad. Sed rate is significantly high. Is mildly anemic. Recheck labs in one week including ifobt. Kymberly Stein MA 09/19/2024 4:54 PM Signed Message left for return call. KARISSA Obregon M Robin, RN 09/20/2024 8:37 AM Signed Pt returned call and given provider's message below with verbalized understanding. Pt agreeable. Allergies As of Date: 09/19/2024 Noted Allergy Reaction SERTRALINE 12/22/2007 6 - Diarrhea Date Reviewed: 09/18/2024 Reviewed by: Kymberly Stein MA - Fully Assessed Reason for Visit: Results [95] Primary Visit Diagnosis:Anemia, unspecified type [D64.9] Order(s):COMPLETE BLOOD COUNT AND DIFFERENTIAL [SQCBCDIF] Order #: [id number] FUTURE IRON AND TIBC [SQIRON] Order #: [id number] FUTURE VITAMIN B12 [SQB12] Order #: [id number] FUTURE FOLATE, SERUM [SQSERFOL] Order #: [id number] FUTURE FERRITIN [SQFERR] Order #: [id number] FUTURE IMMUNOCHEMICAL FECAL OCCULT BLOOD TEST [SQIFOBT] Order #: [id number] FUTURE Prescriptions as of 09/20/2024 - cyanocobalamin 1,000 mcg/mL Inject 1 mL subcutaneously once every month. - trimethoprim-polymyxin (POLYTRIM) 10,000 unit- 1 mg/mL ophthalmic solution Use 1 Drop in the right eye four times daily. - WEGOVY 0.25 mg/0.5 mL pen injector inject 1 syringe subcutaneously once weekly - fluticasone-salmeterol (ADVAIR DISKUS) 500-50 mcg/dose dsdv Inhale 1 Puff as instructed two times a day. Rinse mouth after use. - lansoprazole (PREVACID) 30 mg capsule TAKE NECESSARY - escitalopram oxalate (LEXAPRO) 10 mg tablet Take 1 tablet by mouth once daily. - estradiol 0.01% estriol 0.01% cream (CPD) Use vaginally two times a week. - naproxen (NAPROSYN) 500 mg tablet Take 1 tablet by mouth two times a day as needed (for pain/inflammation). Take with food. - estradiol (E2) emollient cream 0.2 mg/gram (CPD) Insert fingertip amount vaginally every other day at bedtime - hydroCHLOROthiazide 25 mg tablet Take 25 mg by mouth once daily. - latanoprost (XALATAN) 0.005 % ophthalmic solution - multivitamin tablet Take 1 tablet by mouth once daily. - Insulin Syringe-Needle U-100 (BD INSULIN SYRINGE) 1 mL 25 x 1 syrg Use one a month for b12 injections - levothyroxine (SYNTHROID) 112 mcg tablet Take 1 tablet by mouth daily before breakfast. - lisinopril (ZESTRIL, PRINIVIL) 40 mg tablet Take 1 tablet by mouth once daily. - albuterol HFA (PROVENTIL HFA, VENTOLIN HFA) 90 mcg/actuation inhaler Inhale 2 Puffs as instructed every 4 hours as needed for Wheezing/Shortness of Breath. - COMPOUNDED PRESCRIPTION 3cc syringe and 25g 1 needle for B12 injections. - Cholecalciferol, Vitamin D3, 25 mcg (1,000 unit) cap Take 1,000 Units by mouth once daily. - Lovastatin 40 mg tablet Take 1 tablet by mouth twice daily. - insulin aspart (NOVOLOG) 100 unit/mL soln use as directed in insulin pump up to 50 units daily - blood sugar diagnostic (EverSport MediaUCH ULTRA TEST) test strip CHECK BLOOD SUGARS 8 TIMES DAILY - COMPOUNDED PRESCRIPTION Metronic Minimed Insulin Pump Supples And life scan testing supplies use as directed - Lancets Misc lancets testing 8 times daily - BD ULTRA FINE LANCETS use as directed - ASPIRIN 81 MG ORAL TAB Take one(1) tablet daily. - VITAMIN C 500 MG ORAL TAB Take one(1) tablet daily. Problem List As Of Date 09/19/2024 Noted Resolved Type 1 diabetes mellitus (HCC) [E10.9] Hypothyroidism [E03.9] 04/06/2005 PURE HYPERCHOLESTEROLEM [E78.00] 04/06/2005 Mild intermittent asthma, uncomplicated [J45.20]04/25/2007 B12 DEFIC ANEMIA NEC [D51.8] 04/25/2007 ACNE VULGARIS: Inflammatory Grade III//IV: low*04/25/2007 HEADACHE [R51] 04/25/2007 NEVUS CHEST/BACK///BENIGN TAMMY SKIN TRUNK [D23.5]04/25/2007 02/16/2017 NEVUS///BENIGN TAMMY SKIN FACE NEC [D23.30] 04/25/2007 02/16/2017 NEVI////BENIGN TAMMY SCALP/SKIN NECK [D23.4] 04/25/2007 02/16/2017 SCARS: Acne-related (chin) [L90.5] 04/25/2007 02/16/2017 SOLAR LENTIGINES///DYSCHROMIA OTHER [L81.9] 06/18/2008 02/16/2017 ACTINIC DAMAGE///CHR SOLAR SKIN DAMAGE NOS [L57*06/18/2008 02/16/2017 Dermatitis due to cosmetics [L25.0] 06/18/2008 02/16/2017 Contact dermatitis and other eczema, due to uns*06/18/2008 02/16/2017 Contact dermatitis and other eczema due to othe*06/18/2008 02/16/2017 Solar Lentigines [L81.4] 02/18/2010 02/16/2017 Postinflammatory skin changes [R23.8] 07/20/2012 02/16/2017 Epidermal cyst [L72.0] 07/20/2012 02/16/2017 Alcohol abuse [F10.10] 02/22/2022 Encounter Status:Closed by Negrita HUTCHINS on 09/20/24 Normal [facility] Basic metabolic 2000 panelon 09-18-2024 Anion gap [Moles/Vol] 10 mmol/L Normal 8-15 [facility] Comment on above: Order Comment: Speci men Type: STOOL SPECIMEN Ordering Facility: [facility] Address: [address] [place], [place] [address] [address] Performed By: #### 2 9771-3 #### [facility] CLIA [id number] [address] [place] [address] [place] Calcium [Mass/Vol] 9.9 mg/dL Normal 8.5-10.2 [facility] Comment on above: Order Comment: Speci men Type: STOOL SPECIMEN Ordering Facility: [facility] Address: [address] [place] [address] Performed By: #### 2 9771-3 #### [facility] CLIA [id number] [address] [place] [address] [place] Chloride [Moles/Vol] 101 mmol/L Normal 98-107 [facility] Comment on above: Order Comment: Speci men Type: STOOL SPECIMEN Ordering Facility: [facility] Address: [address] [place] [address] Performed By: #### 2 9771-3 #### [facility] CLIA [id number] [address] [place] [address] [place] CO2 [Moles/Vol] 22 mmol/L Normal 22-30 [facility] Comment on above: Order Comment: Speci men Type: STOOL SPECIMEN Ordering Facility: [facility] Address: [address] [place] [address] Performed By: #### 2 9771-3 #### [facility] CLIA [id number] [address] [place] [address] [place] Creatinine [Mass/Vol] 0.97 mg/dL High 0.58-0.96 [facility] Comment on above: Order Comment: Speci men Type: STOOL SPECIMEN Ordering Facility: [facility] Address: [address] [place] [address] Performed By: #### 2 9771-3 #### [facility] CLIA [id number] [address] [place] [address] [place] Creatinine and Glomerular filtration rate.predicted panel (S/P/Bld) 67 mL/min/1.73m??? Normal >=60 [facility] Comment on above: Order Comment: [place] loredo Type: STOOL SPECIMEN Ordering Facility: [facility] Address: [address] [place] [address] Result Comment: Yessica mated Glomerular Filtration Rate (eGFR) is calculated using the 2020 CKD-EPI creatinine equation. This equation utilizes serum creatinine, sex, and age as parameters. The creatinine assay has traceable calibration to isotope dilution-mass spectrometry. Refer to KDIGO guidelines for clinical interpretation. In patients with unstable renal function, e.g. those with acute kidney injury, the eGFR may not accurately reflect actual GFR. Performed By: #### 2 9771-3 #### [facility] CLIA [id number] [address] [place] [address] [place] Glucose [Mass/Vol] 286 mg/dL High 74-99 [facility] Comment on above: Order Comment: [place] loredo Type: STOOL SPECIMEN Ordering Facility: [facility] Address: [address] [place] [address] Result Comment: The [place] Diabetes [employer] (ADA) provides guidance for cutoff values for fasting glucose and random glucose. The ADA defines fasting as no caloric intake for at least 8 hours. Fasting plasma glucose results between 100 to 125 mg/dL indicate increased risk for diabetes (prediabetes). Fasting plasma glucose results greater than or equal to 126 mg/dL meet the criteria for diagnosis of diabetes. In the absence of unequivocal hyperglycemia, results should be confirmed by repeat testing. In a patient with classic symptoms of hyperglycemia or hyperglycemic crisis, random plasma glucose results greater than or equal to 200 mg/dL meet the criteria for diagnosis of diabetes. Reference: Standards of Medical Care in Diabetes 2016, [place] [employer]. Diabetes Care. 2016.39(Suppl 1). Performed By: #### 2 9771-3 #### [facility] CLIA [id number] [address] [place] [address] [place] Potassium [Moles/Vol] 4.7 mmol/L Normal 3.7-5.1 [facility] Comment on above: Order Comment: Speci men Type: STOOL SPECIMEN Ordering Facility: [facility] Address: [address] [place] [address] Performed By: #### 2 9771-3 #### [facility] CLIA [id number] [address] [place] [address] [place] Sodium [Moles/Vol] 133 mmol/L Low 136-144 [facility] Comment on above: Order Comment: Speci men Type: STOOL SPECIMEN Ordering Facility: [facility] Address: [address] [place] [address] Performed By: #### 2 9771-3 #### [facility] CLIA [id number] [address] [place] [address] [place] Urea nitrogen [Mass/Vol] 11 mg/dL Normal 7-21 [facility] Comment on above: Order Comment: Speci men Type: STOOL SPECIMEN Ordering Facility: [facility] Address: [address] [place] [address] Performed By: #### 2 9771-3 #### [facility] CLIA [id number] [address] [place] [address] [place] CBC W Auto Differential pane l (Bld)on 09-18-2024 Basophils (Bld) [#/Vol] 0.07 10*3/uL [facility] Basophils/100 WBC (Bld) 0.8 % [facility] Differential cell count method Nom (Bld) Auto [facility] Eosinophils (Bld) [#/Vol] 0.31 10*3/uL [facility] Eosinophils/100 WBC (Bld) 3.4 % [facility] Erythrocyte distribution width (RBC) [Ratio] 11.9 % 11.5 - 15.0 % [facility] Hematocrit (Bld) [Volume fraction] 34.4 % Low 36.0 - 46.0 % [facility] Hemoglobin (Bld) [Mass/Vol] 11.4 g/dL Low 11.5 - 15.5 g/dL [facility] Immature granulocytes (Bld) [#/Vol] [facility] Immature granulocytes/100 WBC (Bld) 0.2 % [facility] Interpretation and review of laboratory results Abnormal [facility] Lymphocytes (Bld) [#/Vol] 2.51 10*3/uL [facility] Lymphocytes/100 WBC (Bld) 27.8 % [facility] MCH (RBC) [Entitic mass] 30.8 pg 26.0 - 34.0 pg [facility] MCHC (RBC) [Mass/Vol] 33.1 g/dL 30.5 - 36.0 g/dL [facility] MCV (RBC) [Entitic vol] 93 fL 80.0 - 100.0 fL [facility] Monocytes (Bld) [#/Vol] 0.58 10*3/uL NINF [facility] Monocytes/100 WBC (Bld) 6.4 % [facility] Neutrophils (Bld) [#/Vol] 5.55 10*3/uL [facility] Neutrophils/100 WBC (Bld) 61.4 % [facility] Nucleated RBC (Bld) [#/Vol] NINF [facility] Nucleated RBC/100 WBC (Bld) [Ratio] 0 % /100 WBC [facility] Platelet mean volume (Bld) [Entitic vol] 10.1 fL 9.0 - 12.7 fL [facility] Platelets (Bld) [#/Vol] 397 10*3/uL [facility] RBC (Bld) [#/Vol] 3.7 10*6/uL Low 3.90 - 5.2 0 m/uL [facility] WBC (Bld) [#/Vol] 9.04 10*3/uL [facility] Basophils (Bld) [#/Vol] 0.07 10*3/uL Normal <0.11 [facility] Comment on above: Order Comment: Speci men Type: BLOOD SPECIMENOrdering Facility: [facility] Address: [address] [place] [address] Performed By: #### 5 7021-8, 4537-7 ####[facility] [id number] [address] STATES OF [facility] Basophils/100 WBC (Bld) 0.8 % Normal [facility] Comment on above: Order Comment: Speci men Type: BLOOD SPECIMENOrdering Facility: [facility] Address: [address] [place] [address] Performed By: #### 5 7021-8, 4536-7 ####[facility] [id number] [place] [address] [place] Differential cell count method Nom (Bld) Auto Normal [facility] Comment on above: Order Comment: Speci men Type: BLOOD SPECIMENOrdering Facility: [facility] Address: [address] [place] [address] Performed By: #### 5 7021-8, 7 ####[facility] [id number] [place] [address] [place] Eosinophils (Bld) [#/Vol] 0.31 10*3/uL Normal <0.46 [facility] Comment on above: Order Comment: Speci men Type: BLOOD SPECIMENOrdering Facility: [facility] Address: [address] [place] [address] Performed By: #### 5 7021-8, 7 ####[facility] [id number] [place] [address] [place] Eosinophils/100 WBC (Bld) 3.4 % Normal [facility] Comment on above: Order Comment: Speci men Type: BLOOD SPECIMENOrdering Facility: [facility] Address: [address] [place] [address] Performed By: #### 5 7021-8, 7 ####[facility] [id number] [place] [address] [place] Erythrocyte distribution width (RBC) [Ratio] 11.9 % Normal 11.5-15.0 [facility] Comment on above: Order Comment: Speci men Type: BLOOD SPECIMENOrdering Facility: [facility] Address: [address] [place] [address] Performed By: #### 5 7021-8, 7 ####[facility] [id number] [place] [address] [place] Hematocrit (Bld) [Volume fraction] 34.4 % Low 36.0-46.0 [facility] Comment on above: Order Comment: Speci men Type: BLOOD SPECIMENOrdering Facility: [facility] Address: [address] [place] [address] Performed By: #### 5 7021-8, 7 ####[facility] [id number] [place] [address] [place] Hemoglobin (Bld) [Mass/Vol] 11.4 g/dL Low 11.5-15.5 [facility] Comment on above: Order Comment: Speci men Type: BLOOD SPECIMENOrdering Facility: [facility] Address: [address] [place] [address] Performed By: #### 5 7021-8, 7 ####[facility] [id number] [place] [address] [place] Immature granulocytes (Bld) [#/Vol] 10*3/uL Normal <0.10 [facility] Comment on above: Order Comment: Speci men Type: BLOOD SPECIMENOrdering Facility: [facility] Address: [address] [place] [address] Performed By: #### 5 7021-8, 7 ####[facility] [id number] [place] [address] [place] Immature granulocytes/100 WBC (Bld) 0.2 % Normal [facility] Comment on above: Order Comment: Speci men Type: BLOOD SPECIMENOrdering Facility: [facility] Address: [address] [place] [address] Performed By: #### 5 7021-8, 4536-7 ####[facility] [id number] [place] [address] [place] Lymphocytes (Bld) [#/Vol] 2.51 10*3/uL Normal 1.00-4.00 [facility] Comment on above: Order Comment: Speci men Type: BLOOD SPECIMENOrdering Facility: [facility] Address: [address] [place] [address] Performed By: #### 5 7021-8, 4536-7 ####[facility] [id number] [place] [address] [place] Lymphocytes/100 WBC (Bld) 27.8 % Normal [facility] Comment on above: Order Comment: Speci men Type: BLOOD SPECIMENOrdering Facility: [facility] Address: [address] [place] [address] Performed By: #### 5 7021-8, 4536-7 ####[facility] [id number] [place] [address] [place] MCH (RBC) [Entitic mass] 30.8 pg Normal 26.0-34.0 [facility] Comment on above: Order Comment: Speci men Type: BLOOD SPECIMENOrdering Facility: [facility] Address: [address] [place] [address] Performed By: #### 5 7021-8, 4536-7 ####[facility] [id number] [place] [address] [place] MCHC (RBC) [Mass/Vol] 33.1 g/dL Normal 30.5-36.0 [facility] Comment on above: Order Comment: Speci men Type: BLOOD SPECIMENOrdering Facility: [facility] Address: [address] [place] [address] Performed By: #### 5 7021-8, 4536-7 ####[facility] [id number] [place] [id number] [place] MCV (RBC) [Entitic vol] 93.0 fL Normal 80.0-100.0 [facility] Comment on above: Order Comment: Speci men Type: BLOOD SPECIMENOrdering Facility: [facility] Address: [address] [place] [address] Performed By: #### 5 7021-8, 4536-7 ####[facility] [id number] [facility] [address], [facility] [place] Monocytes (Bld) [#/Vol] 0.58 10*3/uL Normal <0.87 [facility] Comment on above: Order Comment: Speci men Type: BLOOD SPECIMENOrdering Facility: [facility] Address: [address] [place] [address] Performed By: #### 5 7021-8, 4536-7 ####[facility] LABCLIA [id number] [facility] [address], [place] [address] [place] Monocytes/100 WBC (Bld) 6.4 % Normal [facility] Comment on above: Order Comment: Speci men Type: BLOOD SPECIMENOrdering Facility: [facility] Address: [address] [place] [address] Performed By: #### 5 7021-8, 7 ####[facility] LABCLIA [id number] [place] [address] [place] Neutrophils (Bld) [#/Vol] 5.55 10*3/uL Normal 1.45-7.50 [facility] Comment on above: Order Comment: Speci men Type: BLOOD SPECIMENOrdering Facility: [facility] Address: [address] [place] [address] Performed By: #### 5 7021-8, 4536-7 ####[facility] LABCLIA [id number] [facility] [place] [address] [place] Neutrophils/100 WBC (Bld) 61.4 % Normal [facility] Comment on above: Order Comment: Speci men Type: BLOOD SPECIMENOrdering Facility: [facility] Address: [address] [place] [address] Performed By: #### 5 7021-8, 7-7 ####[facility] LABCLIA [id number] [place] [address] [place] Nucleated RBC (Bld) [#/Vol] 10*3/uL Normal <0.01 [facility] Comment on above: Order Comment: Speci men Type: BLOOD SPECIMENOrdering Facility: [facility] Address: [address] [place] [address] Performed By: #### 5 7021-8, 4536-7 ####[facility] LABIA [id number] [place] [address] [place] Nucleated RBC/100 WBC (Bld) [Ratio] 0.0 /100 WBC Normal [facility] Comment on above: Order Comment: Speci men Type: BLOOD SPECIMENOrdering Facility: [facility] Address: [address] [place] [address] Performed By: #### 5 7021-8, 4536-7 ####[facility] LABIA [id number] [place] [address] [place] Platelet mean volume (Bld) [Entitic vol] 10.1 fL Normal 9.0-12.7 [facility] Comment on above: Order Comment: Speci men Type: BLOOD SPECIMENOrdering Facility: [facility] Address: [address] [place] [address] Performed By: #### 5 7021-8, 7 ####[facility] LABCLIA [id number] [place] [id number] [place] Platelets (Bld) [#/Vol] 397 10*3/uL Normal 150-400 [facility] Comment on above: Order Comment: Speci men Type: BLOOD SPECIMENOrdering Facility: [facility] Address: [address] [place] [address] Performed By: #### 5 7021-8, 4536-7 ####[facility] LABCLIA [id number] [place] [address] [place] RBC (Bld) [#/Vol] 3.70 10*6/uL Low 3.90-5.20 [facility] Comment on above: Order Comment: Speci men Type: BLOOD SPECIMENOrdering Facility: [facility] Address: [address] [place] [address] Performed By: #### 5 7021-8, 4537-7 ####[facility] LABIA [id number] [place] [address] [place] WBC (Bld) [#/Vol] 9.04 10*3/uL Normal 3.70-11.00 [facility] Comment on above: Order Comment: Speci men Type: BLOOD SPECIMENOrdering Facility: [facility] Address: [address] [place] [address] Performed By: #### 5 7021-8, 4537-7 ####[facility] LABIA [id number] [place] [address] [place] CNOVon 09-18-2024 CNOV Office Visit (JOSEWS ) MAYI MATA ([id number]) 1965 F Date Time Provider Department 09/18/24 2:40 PM WILLIAM STEINBERG FAMPWS During your visit today, we recorded the following information about you: Pulse Blood pressure Weight Height 98/minute 98/60 66.2 kg 1.626 m William Steinberg MD 09/18/2024 2:48 PM Signed Patient presents with: Lump HPI: Patient presents today for office visit for lump behind right ear. Noticed lump behind her right ear about 2-3 months ago. Has not changed in size. Sometimes it's sore. No drainage. No fevers. No lumps or bumps elsewhere. No ear pain. No rashes or sore throat. Still seeing Dr Engel. MEDICATIONS: Current Outpatient Medications Medication Sig cyanocobalamin 1,000 mcg/mL Inject 1 mL subcutaneously once every month. trimethoprim-polymyxin (POLYTRIM) 10,000 unit- 1 mg/mL ophthalmic solution Use 1 Drop in the right eye four times daily. WEGOVY 0.25 mg/0.5 mL pen injector inject 1 syringe subcutaneously once weekly fluticasone-salmeterol (ADVAIR DISKUS) 500-50 mcg/dose dsdv Inhale 1 Puff as instructed two times a day. Rinse mouth after use. lansoprazole (PREVACID) 30 mg capsule TAKE NECESSARY escitalopram oxalate (LEXAPRO) 10 mg tablet Take 1 tablet by mouth once daily. estradiol 0.01% estriol 0.01% cream (CPD) Use vaginally two times a week. naproxen (NAPROSYN) 500 mg tablet Take 1 tablet by mouth two times a day as needed (for pain/inflammation). Take with food. hydroCHLOROthiazide 25 mg tablet Take 25 mg by mouth once daily. latanoprost (XALATAN) 0.005 % ophthalmic solution multivitamin tablet Take 1 tablet by mouth once daily. Insulin Syringe-Needle U-100 (BD INSULIN SYRINGE) 1 mL 25 x 1 syrg Use one a month for b12 injections levothyroxine (SYNTHROID) 112 mcg tablet Take 1 tablet by mouth daily before breakfast. lisinopril (ZESTRIL, PRINIVIL) 40 mg tablet Take 1 tablet by mouth once daily. albuterol HFA (PROVENTIL HFA, VENTOLIN HFA) 90 mcg/actuation inhaler Inhale 2 Puffs as instructed every 4 hours as needed for Wheezing/Shortness of Breath. COMPOUNDED PRESCRIPTION 3cc syringe and 25g 1 needle for B12 injections. Cholecalciferol, Vitamin D3, 25 mcg (1,000 unit) cap Take 1,000 Units by mouth once daily. Lovastatin 40 mg tablet Take 1 tablet by mouth twice daily. insulin aspart (NOVOLOG) 100 unit/mL soln use as directed in insulin pump up to 50 units daily blood sugar diagnostic (Curemark ULTRA TEST) test strip CHECK BLOOD SUGARS 8 TIMES DAILY COMPOUNDED PRESCRIPTION Metronic Minimed Insulin Pump Supples And life scan testing supplies use as directed Lancets Misc lancets testing 8 times daily BD ULTRA FINE LANCETS use as directed ASPIRIN 81 MG ORAL TAB Take one(1) tablet daily. VITAMIN C 500 MG ORAL TAB Take one(1) tablet daily. estradiol (E2) emollient cream 0.2 mg/gram (CPD) Insert fingertip amount vaginally every other day at bedtime (Patient not taking: Reported on 07/19/2024) No current facility-administered medications for this visit. 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 Other acne Other vitamin B12 deficiency anemia Snoring Type I (juvenile type) diabetes mellitus without mention of complication, not stated as uncontrolled (HCC) Unspecified asthma, with status asthmaticus Unspecified hypothyroidism PAST SURGICAL HISTORY Procedure Laterality Date APPENDECTOMY COLONOSCOPY 07/12/2016 Repeat colonoscopy 2018 COLONOSCOPY SCREENING 07/13/2021 OOPHORECTOMY PARTIAL/TOTAL UNI/BI 03/2007 right oophorectomy PAST SURGICAL HISTORY OF LAPAROSCOPY TOTAL ABDOMINAL HYSTERECT W/WO RMVL TUBE OVARY 03/2007 Hysterectomy, IVY FAMILY HISTORY Problem Relation Age of Onset No Known Problems Mother other (RENAL CANCER) Father other (Brain Tumors) Sister other (Giallan barrette Syndrome) Sister Colon Cancer Maternal Grandmother and maternal grandfather No Known Problems Maternal Grandfather No Known Problems Paternal Grandmother No Known Problems Paternal Grandfather Social History Tobacco Use Smoking status: Every Day Current packs/day: 0.50 Types: Cigarettes Smokeless tobacco: Never Tobacco comments: seldom Vaping Use Vaping status: Never Used Substance Use Topics Alcohol use: Not Currently Comment: Occasionally Drug use: No Reviewed current medications, allergies, past medical history, surgical history, family history and social history today. REVIEW OF SYSTEMS All other reviewed and negative other than HPI. VITALS: BP 98/60 Pulse 98 Ht 162.6 cm (5' 4) Wt 66.2 kg (146 lb) LMP 01/13/2007 SpO2 98% BMI 25.06 kg/m? Last 4 Encounter Wt Readings: Date: Wt: 07/19/2024 65.7 kg (144 lb 12.8 oz) 06/04/2024 67.9 kg (149 lb 11.1 oz) (more content not included)... Normal [facility] ESR Westergren method (Bld) [Velocity]on 09-18-2024 ESR (Bld) [Velocity] 27 mm/h High 0-20 [facility] Comment on above: Order Comment: Speci men Type: BLOOD SPECIMENOrdering Facility: [facility] Address: [address] [place] [address] Performed By: #### 5 7021-8, 4537-7 ####[facility] LABCLIA [id number] [place] [address] [place] BACTERIAL VAGINOSIS NAATon 0 07-19-2024 Lactobacillus crispatus+gasseri+terrell senii + Gardnerella vaginalis + Atopobium vaginae rRNA ROSIBEL+probe Ql (Vag fld) Not detected Normal Not detected [facility] Comment on above: Order Comment: Speci men Type: STOOL SPECIMEN [facility] Address: [address] [place] [address] Performed By: #### 2 9771-3 #### [facility] CLIA [id number] [address] [place] [address] [place] JULIÁN/TRICHOMONAS NAATon 0 07-19-2024 C. glabrata RNA ROSIBEL+probe Ql (Vag fld) Not detected Normal Not detected [facility] Comment on above: Order Comment: Speci men Type: STOOL SPECIMEN [facility] Address: [address] [place] [address] Performed By: #### 2 9771-3 #### [facility] CLIA [id number] [address] [place] [address] [place] Julián sp DNA ROSIBEL+probe Ql (Vag fld) Not detected Normal Not detected [facility] Comment on above: Order Comment: Speci men Type: STOOL SPECIMEN [facility] Address: [address] [place] [address] Result Comment: The Julián species group target includes C. albicans, C. tropicalis, C. parapsilosis, and C. dubliniensis. Performed By: #### 2 9771-3 #### [facility] CLIA [id number] [address] [place] [address] [place] T. vaginalis DNA ROSIBEL+probe Ql (Unsp spec) Not detected Normal Not detected [facility] Comment on above: Order Comment: Speci men Type: STOOL SPECIMEN [facility] Address: [address] [place] [address] Performed By: #### 2 9771-3 #### [facility] CLIA [id number] [address] [place] [address] [place] CNOVon 07-19-2024 CNOV Office Visit (OBGYWM ) MAYI MATA ([id number]) 1965 F Date Time Provider Department 07/19/24 10:30 AM REKHA FARRELL OBYISSELWNegrita During your visit today, we recorded the following information about you: Blood pressure Weight 128/74 65.7 kg Rekha Farrell APRN.POKER MANAGER 07/19/2024 11:16 AM 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 Mayi Mata is a 59 year old female who presents for problem visit vaginal burning , irritation recent [facility] on 07/15/2024 current treatment Fluconazole, negative yeast culture. HPI: Patient states that she has noticed an increase in vaginal and bladder irritation. She is using the vaginal estrogen cream twice a week per her conversation with Peace Cuevas at her annual last year. Patient states that when she was using the cream 3 times a week she did not notice this issue as much. She denies any dysuria, vaginal discharge, bleeding or any odor. 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 Other acne Other vitamin B12 deficiency anemia Snoring Type I (juvenile type) diabetes mellitus without mention of complication, not stated as uncontrolled (HCC) Unspecified asthma, with status asthmaticus Unspecified hypothyroidism PAST SURGICAL HISTORY Procedure Laterality Date APPENDECTOMY COLONOSCOPY 07/12/2016 Repeat colonoscopy 2018 COLONOSCOPY SCREENING 07/13/2021 OOPHORECTOMY PARTIAL/TOTAL UNI/BI 03/2007 right oophorectomy PAST SURGICAL HISTORY OF LAPAROSCOPY TOTAL ABDOMINAL HYSTERECT W/WO RMVL TUBE OVARY 03/2007 Hysterectomy, IVY FAMILY HISTORY Problem Relation Age of Onset No Known Problems Mother other (RENAL CANCER) Father other (Brain Tumors) Sister other (Giallan barrette Syndrome) Sister Colon Cancer Maternal Grandmother and maternal grandfather No Known Problems Maternal Grandfather No Known Problems Paternal Grandmother No Known Problems Paternal Grandfather Social History Tobacco Use Smoking status: Every Day Current packs/day: 0.50 Types: Cigarettes Smokeless tobacco: Never Tobacco comments: seldom Vaping Use Vaping status: Never Used Substance Use Topics Alcohol use: Not Currently Comment: Occasionally Drug use: No Current Outpatient Medications Medication Sig trimethoprim-polymyxin (POLYTRIM) 10,000 unit- 1 mg/mL ophthalmic solution Use 1 Drop in the right eye four times daily. WEGOVY 0.25 mg/0.5 mL pen injector inject 1 syringe subcutaneously once weekly fluticasone-salmeterol (ADVAIR DISKUS) 500-50 mcg/dose dsdv Inhale 1 Puff as instructed two times a day. Rinse mouth after use. lansoprazole (PREVACID) 30 mg capsule TAKE NECESSARY escitalopram oxalate (LEXAPRO) 10 mg tablet Take 1 tablet by mouth once daily. estradiol 0.01% estriol 0.01% cream (CPD) Use vaginally two times a week. naproxen (NAPROSYN) 500 mg tablet Take 1 tablet by mouth two times a day as needed (for pain/inflammation). Take with food. hydroCHLOROthiazide 25 mg tablet Take 25 mg by mouth once daily. latanoprost (XALATAN) 0.005 % ophthalmic solution multivitamin tablet Take 1 tablet by mouth once daily. Insulin Syringe-Needle U-100 (BD INSULIN SYRINGE) 1 mL 25 x 1 syrg Use one a month for b12 injections levothyroxine (SYNTHROID) 112 mcg tablet Take 1 tablet by mouth daily before breakfast. lisinopril (ZESTRIL, PRINIVIL) 40 mg tablet Take 1 tablet by mouth once daily. albuterol HFA (PROVENTIL HFA, VENTOLIN HFA) 90 mcg/actuation inhaler Inhale 2 Puffs as instructed every 4 hours as needed for Wheezing/Shortness of Breath. COMPOUNDED PRESCRIPTION 3cc syringe and 25g 1 needle for B12 injections. Cholecalciferol, Vitamin D3, 25 mcg (1,000 unit) cap Take 1,000 Units by mouth once daily. Lovastatin 40 mg tablet Take 1 tablet by mouth twice daily. insulin aspart (NOVOLOG) 100 unit/mL soln use as directed in insulin pump up to 50 units daily blood sugar diagnostic (Curemark ULTRA TEST) test strip CHECK BLOOD SUGARS 8 TIMES DAILY COMPOUNDED PRESCRIPTION Metronic Minimed Insulin Pump Supples And life scan testing supplies use as directed Lancets Misc lancets testing 8 times daily BD ULTRA FINE LANCETS use as directed ASPIRIN 81 MG ORAL TAB Take one(1) tablet daily. VITAMIN C 500 MG ORAL TAB Take one(1) tablet daily. fluconazole (DIFLUCAN) 200 mg tablet Take 200 mg by mouth one time only. (Patient not taking: Reported on 07/19/2024) cyanocobalamin 1,000 mcg/mL Inject 1 mL subcutaneously once every month. estradiol (E2) emollient cr (more content not included)... Normal [facility] Metabolic Prof dhaval 06-18-2024 Albumin [Mass/Vol] 3.8 g/dL Normal 3.2-5.0 [facility] Comment on above: Performed By: #### L 501.9520, L506.1000, L500.4050, L500.4100 #### [facility] [address] [place], [address] Albumin/Globulin [Mass ratio] 1.1 {ratio} Normal 0.9-2.4 [facility] Comment on above: Performed By: #### L 501.9520, L506.1000, L500.4050, L500.4100 #### [facility] [address] [place], [address] ALK P 95 U/L Normal 45-117 [facility] Comment on above: Performed By: #### L 501.9520, L506.1000, L500.4050, L500.4100 #### [facility] [address] [place], [address] ALT [Catalytic activity/Vol] 46 U/L Normal 13-56 [facility] Comment on above: Performed By: #### L 501.9520, L506.1000, L500.4050, L500.4100 #### [facility] [address] [place], [address] AST [Catalytic activity/Vol] 41 U/L High 15-37 [facility] Comment on above: Performed By: #### L 501.9520, L506.1000, L500.4050, L500.4100 #### [facility] [address] [place], [address] Bilirubin [Mass/Vol] 0.70 mg/dL Normal 0.20-1.00 [facility] Comment on above: Result Comment: For patients on eltrombopag therapy, use of Dimension [place] TBIL is not recommended. Performed By: #### L 501.9520, L506.1000, L500.4050, L500.4100 #### [facility] [address] [place], [address] BUN/CRE 10.1 RATIO Normal 10-20 [facility] Comment on above: Performed By: #### L 501.9520, L506.1000, L500.4050, L500.4100 #### [facility] [address] [place], [address] CA,Total 9.6 mg/dL Normal 8.5-10.1 [facility] Comment on above: Performed By: #### L 501.9520, L506.1000, L500.4050, L500.4100 #### [facility] [address] [place], [address] Chloride [Moles/Vol] 99 mmol/L Normal 98-107 [facility] Comment on above: Performed By: #### L 501.9520, L506.1000, L500.4050, L500.4100 #### [facility] [address] [place], [address] CO2 [Moles/Vol] 25.0 mmol/L Normal 21.0-32.0 [facility] Comment on above: Performed By: #### L 501.9520, L506.1000, L500.4050, L500.4100 #### [facility] [address] [place], [address] Creatinine [Mass/Vol] 0.79 mg/dL Normal 0.55-1.02 [facility] Comment on above: Result Comment: The validity of the calculated GFR GFRAA in patients over 70 years has not been determined. Clinical correlation is essential. Performed By: #### L 501.9520, L506.1000, L500.4050, L500.4100 #### [facility] [address] [place], [address] EST GFR - AA 95 mL/min Normal >60 [facility] Comment on above: Result Comment: Afri can [place] GFR Calc Performed By: #### L 501.9520, L506.1000, L500.4050, L500.4100 #### [facility] [address] [place], [address] GAP 9 Normal 5-15 [facility] Comment on above: Performed By: #### L 501.9520, L506.1000, L500.4050, L500.4100 #### [facility] [address] [place], [address] GFR/1.73 sq M.predicted among non-blacks MDRD (S/P/Bld) [Vol rate/Area] 79 mL/min/{1.73_m2} Normal >60 [facility] Comment on above: Result Comment: Non- GFR Calc Performed By: #### L 501.9520, L506.1000, L500.4050, L500.4100 #### [facility] [address] [place], [address] Globulin (S) [Mass/Vol] 3.6 g/dL Normal 2.2-4.2 [facility] Comment on above: Performed By: #### L 501.9520, L506.1000, L500.4050, L500.4100 #### [facility] [address] [place], [address] Glucose [Mass/Vol] 144 mg/dL High 74-106 [facility] Comment on above: Result Comment: Fast ing Glucose result greater than or equal to 126 mg/dL suggests DIABETES MELLITUS per A.D.A. criteria. Performed By: #### L 501.9520, L506.1000, L500.4050, L500.4100 #### [facility] [address] [place], [address] Potassium [Moles/Vol] 3.8 mmol/L Normal 3.5-5.1 [facility] Comment on above: Performed By: #### L 501.9520, L506.1000, L500.4050, L500.4100 #### [facility] [address] [place], [address] Sodium [Moles/Vol] 134 mmol/L Low 136-145 [facility] Comment on above: Performed By: #### L 501.9520, L506.1000, L500.4050, L500.4100 #### [facility] [address] [place], [address] T PROT 7.4 g/dL Normal 6.4-8.2 [facility] Comment on above: Performed By: #### L 501.9520, L506.1000, L500.4050, L500.4100 #### [facility] [address] [place], [address] Urea nitrogen [Mass/Vol] 8 mg/dL Normal 7-18 [facility] Comment on above: Performed By: #### L 501.9520, L506.1000, L500.4050, L500.4100 #### [facility] [address] [place], [address] LIPID PANEL (OUTSIDE)on 05-28 LDL:HDL Ratio [facility] Non-HDL Cholesterol [facility] TC:HDL Ratio [facility] VLDL Cholesterol 21 [facility] Lipid Profileon 06-18-2024 Cholesterol [Mass/Vol] 164 mg/dL Normal 200 [facility] Comment on above: Result Comment: <200 mg/dL Desirable 200-240 mg/dL Borderline >240 mg/dL High Risk Performed By: #### L 501.9520, L506.1000, L500.4050, L500.4100 #### [facility] [address] [place], [address] Cholesterol in HDL [Mass/Vol] 99 mg/dL Normal [facility] Comment on above: Result Comment: The drugs N-Acetylcysteine and Metamizole may falsely depress this assay. Reference Range HDL <40 mg/dL Low HDL Cholesterol HDL >or= 60 mg/dL High HDL Cholesterol Performed By: #### L 501.9520, L506.1000, L500.4050, L500.4100 #### [facility] [address] [place], [address] Cholesterol in LDL [Mass/Vol] 44 mg/dL Normal 0-130 [facility] Comment on above: Performed By: #### L 501.9520, L506.1000, L500.4050, L500.4100 #### [facility] [address] [place], [address] Cholesterol in VLDL [Mass/Vol] 21 mg/dL Normal 5-40 [facility] Comment on above: Performed By: #### L 501.9520, L506.1000, L500.4050, L500.4100 #### [facility] [address] [place], [address] Triglyceride [Mass/Vol] 105 mg/dL Normal [facility] Comment on above: Result Comment: The drugs N-Acetylcysteine and Metamizole may falsely depress this assay. Serum Triglycerides Reference Interval Normal <150 mg/dL Borderline high 150 - 199 mg/dL High 200 - 499 mg/dL Very High > or = 500 mg/dL Performed By: #### L 501.9520, L506.1000, L500.4050, L500.4100 #### [facility] [address] [place], [address] Microalb:Creat Ratio,Random URon 06-18-2024 Creatinine [Mass/Vol] 334.00 mg/dL Normal NO RAN GE EST. [facility] Comment on above: Performed By: #### L 502.0250 #### [facility] [address] [place], [address] MALB:CRE 6.1 mg/g CRE Normal <30 mg/g CRE [facility] Comment on above: Performed By: #### L 502.0250 #### [facility] [address] [place], [address] MICROALBUMIN,UR 20.5 mg/L Normal NO RANGE EST. [facility] Comment on above: Performed By: #### L 502.0250 #### [facility] [address] [place], [address] Thyroid Stim Hormone (TSH)on 06-18-2024 TSH 0.025 uIU/mL Low 0.358-3.740 [facility] Comment on above: Performed By: #### L 501.9520, L506.1000, L500.4050, L500.4100 #### [facility] [address] [place], [place], [address] Vitamin D,25 Hydroxyon 06-18 Vitamin D 25-OH 65.0 ng/mL Normal [facility] Comment on above: Result Comment: Myranda min D 25(OH) Status Range Deficiency <20 ng/mL (50nmol/L) Insufficiency 20 - 30 ng/mL (50 - 75 nmol/L) Sufficiency 30 - 100 ng/mL (75 - 250 nmol/L) Toxicity >100 ng/mL (>250 nmol/L) Performed By: #### L 501.9520, L506.1000, L500.4050, L500.4108 #### [facility] [address] [place], [place], [address] Endocrinology Visit Reporton 06-12-2024 Endocrinology Visit Report [facility] [address] [place], [place] [address] OFFICE VISIT Date of Service: 06/12/24 MR#: [id number] Acct: [id number] Name: MAYI MATA GABY Rep #: [id number] : 1965 Provider: Negrita Yeboah Age/Sex: 59/F Location: [facility] Status: Signed Intake Vital Signs 02/14/24 08:00 06/12/24 07:57 Height 5 ft 4 in 5 ft 4 in Weight: 151 lb 148 lb 6 oz BMI 25.9 25.4 BP 134/85 H 120/84 H Blood Pressure Location Lt brachial Rt brachial Position Sitting Sitting Pulse 107 H 110 H Pulse Source Monitor Monitor Pulse Oximetry (%) 98 97 Oxygen Delivery Method room air room air Intake Visit Reasons: 4 M FU Chief Complaint: Diabetes Allergies No Known Allergies Allergy (Verified 02/14/24 08:05) Medications ???Medication ???Instructions ???Recorded ???Confirmed ???Type ascorbic acid (vitamin C) 1,000 mg 1,000 mg PO DAILY supplement 06/06/17 06/12/24 History tablet,extended release aspirin 81 mg tablet,delayed 81 mg PO QDAY heart health 06/06/17 06/12/24 History release (Luis Felipe Low Dose Aspirin) lansoprazole 30 mg capsule,delayed 30 mg PO PRN PRN GERD 06/06/17 06/12/24 History release (Prevacid) insulin syringe-needle U-100 0.3 #20 ea 07/10/20 06/12/24 Rx mL 31 gauge x 5/16 (BD Insulin Syringe Ultra-Fine) escitalopram oxalate 10 mg tablet 10 mg PO DAILY anxiety 02/11/22 06/12/24 History blood sugar diagnostic (Accu-Chek #450 ea 05/11/22 06/12/24 Rx Guide test strips) multivitamin (One Daily 1 tab PO DAILY 12/06/22 06/12/24 History Multivitamin tablet) cyanocobalamin (vitamin B-12) 1,000 mcg IM QMONTH 10/13/23 06/12/24 History 1,000 mcg/mL injection solution levothyroxine 100 mcg tablet 100 mcg PO DAILY #90 tabs 11/23/23 06/12/24 Rx lisinopril 40 mg tablet 40 mg PO QDAY blood pressure #90 04/23/24 06/12/24 Rx tabs Wegovy 1 mg/0.5 mL subcutaneous 1 mg (0.5 mL) subcut Q7D #2 mL 06/12/24 06/12/24 Rx pen injector (semaglutide (weight loss)) hydrochlorothiazide 25 mg tablet 25 mg PO QDAY blood pressure #90 06/12/24 06/12/24 Rx tabs insulin aspart U-100 100 unit/mL See Rx Instructions subcut QDAY 06/12/24 06/12/24 Rx subcutaneous solution (Novolog e10.9 #50 mL U-100 Insulin aspart) rosuvastatin 10 mg tablet 10 mg PO DAILY #90 tabs 06/12/24 06/12/24 Rx PFSH Medical History Overweight (BMI 25.0-29.9) Diabetes Asthma Alcohol abuse DKA (diabetic ketoacidosis) Wears glasses Post-menopausal Alcohol use Insulin dependent diabetes mellitus Diabetes Thyroid disease Smoker Mixed hyperlipidemia Benign essential hypertension Insulin pump titration Presence of insulin pump 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 Personal history of colonic polyps Hypothyroid Asthma Type 1 diabetes mellitus Snoring Vitamin B 12 deficiency Surgical History S/P hysterectomy S/P oophorectomy S/P colonoscopy S/P appendectomy Family History Father Malignant tumor of kidney Arthritis Grandfather Colon cancer Social History Smoking Status: Light Smoker (<10/day) second hand exposure: No alcohol intake: never substance use type: does not use caffeine: Yes what type of physical activity do you participate in: walking frequency: 1-2 times per week seatbelt use: always HPI HPI Chief Complaint: Diabetes Details: MAYI MATA, is a 59 F who presents to the office today for follow up. A1C is 7.1% GMI is 6.8% She is using Medtronic 780G insulin pump with Guardian 4 CGM and auto mode. Upload shows good control, with the exception of post meal highs and under reporting of carbs. She states she gets worried about going low. 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 Labs are due in spring. She is taking Wegovy for CV protection. She has lost weight. She is on rosuvastatin for lipids. She has hypothyroidism and is taking levothyroxine. ROS Const Constitutional: No fatigue, weight change or change in appetite Eyes Eyes: No change in vision ENT ENT: No dizziness/vertigo or difficulty swallowing Cardio Cardiology: No chest pain at rest, chest pain with exertion, shortness of breath or palpitations Musc Musculoskeletal: No abnormal gait, joint pain, numbness or tingling Neuro Neurology: No abnormal gait, memory loss, numbness or tingling Psych Psychiatric: No change in appetite, No memory loss and No Thoughts of harming yourself/Others Resp Respiratory: No cough, chest congestion or shortness of breath Gastro (more content not included)... Normal [facility] 06-04-2024 CNOV Office Visit (UCWSTR ) MAYI MATA ([id number]) 1965 F Date Time Provider Department 06/04/24 7:30 AM JENA BLANK [facility] During your visit today, we recorded the following information about you: Temperature Pulse Respiration Blood pressure 97.5 degrees 110/minute 16/minute 122/76 Weight 67.9 kg Jena Blank PA 06/04/2024 7:52 AM Signed This note was created using YoBucko. Subjective Mayi Mata is a 59 year old female. HPI 59-year-old female presents for right eye irritation. Patient states her right eye has been irritated for the past day. She woke up this morning and her right eye was crusted shut. She has no pain in the eye, states it just feels scratchy. She denies any vision changes. She does wear glasses, no contacts. No fevers, cough, congestion. No headaches. Does not recall getting anything in the eye. No other complaint. 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 Other acne Other vitamin B12 deficiency anemia Snoring Type I (juvenile type) diabetes mellitus without mention of complication, not stated as uncontrolled (HCC) Unspecified asthma, with status asthmaticus Unspecified hypothyroidism PAST SURGICAL HISTORY Procedure Laterality Date APPENDECTOMY COLONOSCOPY 07/12/2016 Repeat colonoscopy 2018 COLONOSCOPY SCREENING 07/13/2021 OOPHORECTOMY PARTIAL/TOTAL UNI/BI 03/2007 right oophorectomy PAST SURGICAL HISTORY OF LAPAROSCOPY TOTAL ABDOMINAL HYSTERECT W/WO RMVL TUBE OVARY 03/2007 Hysterectomy, IVY ALLERGIES Sertraline MEDICATIONS WEGOVY 0.25 mg/0.5 mL pen injector inject 1 syringe subcutaneously once weekly fluticasone-salmeterol (ADVAIR DISKUS) 500-50 mcg/dose dsdv Inhale 1 Puff as instructed two times a day. Rinse mouth after use. cyanocobalamin 1,000 mcg/mL Inject 1 mL subcutaneously once every month. lansoprazole (PREVACID) 30 mg capsule TAKE NECESSARY escitalopram oxalate (LEXAPRO) 10 mg tablet Take 1 tablet by mouth once daily. estradiol 0.01% estriol 0.01% cream (CPD) Use vaginally two times a week. naproxen (NAPROSYN) 500 mg tablet Take 1 tablet by mouth two times a day as needed (for pain/inflammation). Take with food. estradiol (E2) emollient cream 0.2 mg/gram (CPD) Insert fingertip amount vaginally every other day at bedtime hydroCHLOROthiazide 25 mg tablet Take 25 mg by mouth once daily. latanoprost (XALATAN) 0.005 % ophthalmic solution multivitamin tablet Take 1 tablet by mouth once daily. Insulin Syringe-Needle U-100 (BD INSULIN SYRINGE) 1 mL 25 x 1 syrg Use one a month for b12 injections levothyroxine (SYNTHROID) 112 mcg tablet Take 1 tablet by mouth daily before breakfast. lisinopril (ZESTRIL, PRINIVIL) 40 mg tablet Take 1 tablet by mouth once daily. albuterol HFA (PROVENTIL HFA, VENTOLIN HFA) 90 mcg/actuation inhaler Inhale 2 Puffs as instructed every 4 hours as needed for Wheezing/Shortness of Breath. COMPOUNDED PRESCRIPTION 3cc syringe and 25g 1 needle for B12 injections. Cholecalciferol, Vitamin D3, 25 mcg (1,000 unit) cap Take 1,000 Units by mouth once daily. Lovastatin 40 mg tablet Take 1 tablet by mouth twice daily. insulin aspart (NOVOLOG) 100 unit/mL soln use as directed in insulin pump up to 50 units daily blood sugar diagnostic (ONETOUCH ULTRA TEST) test strip CHECK BLOOD SUGARS 8 TIMES DAILY COMPOUNDED PRESCRIPTION Metronic Minimed Insulin Pump Supples And life scan testing supplies use as directed Lancets [facility] lancets testing 8 times daily BD ULTRA FINE LANCETS use as directed ASPIRIN 81 MG ORAL TAB Take one(1) tablet daily. VITAMIN C 500 MG ORAL TAB Take one(1) tablet daily. trimethoprim-polymyxin (POLYTRIM) 10,000 unit- 1 mg/mL ophthalmic solution Use 1 Drop in the right eye four times daily. cyclobenzaprine (FLEXERIL) 10 mg tablet Take 1 tablet by mouth three times a day as needed for muscle spasm. (Patient not taking: Reported on 03/05/2024) FAMILY HISTORY Problem Relation Age of Onset No Known Problems Mother other (RENAL CANCER) Father other (Brain Tumors) Sister other (Giallan barrette Syndrome) Sister Colon Cancer Maternal Grandmother and maternal grandfather No Known Problems Maternal Grandfather No Known Problems Paternal Grandmother No Known Problems Paternal Grandfather Social History Tobacco Use Smoking status: Every Day Current packs/day: 0.50 Types: Cigarettes Smokeless tobacco: Never Tobacco comments: seldom Vaping Use Vaping status: Never Used Substance Use Topics Alcohol use: Not Currently Comment: Occasionally Drug use: No Review of Systems Constitutional: Negative for chills and fever. HENT: Negative for congestion, ear pain and sore throat. Eyes: Positive for discharge, redness and itching. Negative for photophobia, pain and visual disturbance. Respiratory: Negat (more content not included)... Normal [facility] Endocrinology Visit Reporton 02-14-2024 Endocrinology Visit Report [facility] [address] [place] [address] OFFICE VISIT Date of Service: 02/14/24 MR#: [id number] Acct: [id number] Name: MAYI MATA Rep #: [id number] : 1965 Provider: Negrita Yeboah Age/Sex: 59/F Location: [facility] Status: Signed Intake Vital Signs 10/13/23 08:02 02/14/24 08:00 Height 5 ft 4 in 5 ft 4 in Weight: 162 lb 151 lb BMI 27.8 25.9 BP 135/83 H 134/85 H Blood Pressure Location Lt brachial Lt brachial Position Sitting Sitting Pulse 98 107 H Pulse Source Monitor Monitor Temp 98.2 F Temp Source Temporal Pulse Oximetry (%) 98 98 Oxygen Delivery Method room air room air Intake Visit Reasons: 4 M FU Chief Complaint: Diabetes Manager Skilled Required: No Accompanied by: Self Is patient in pain?: No Allergies No Known Allergies Allergy (Verified 02/14/24 08:05) Medications ???Medication ???Instructions ???Recorded ???Confirmed ???Type ascorbic acid (vitamin C) 1,000 mg 1,000 mg PO DAILY supplement 06/06/17 02/14/24 History tablet,extended release aspirin 81 mg tablet,delayed 81 mg PO QDAY heart health 06/06/17 02/14/24 History release (Luis Felipe Low Dose Aspirin) lansoprazole 30 mg capsule,delayed 30 mg PO PRN PRN GERD 06/06/17 02/14/24 History release (Prevacid) insulin syringe-needle U-100 0.3 #20 ea 07/10/20 02/14/24 Rx mL 31 gauge x 5/16 (BD Insulin Syringe Ultra-Fine) escitalopram oxalate 10 mg tablet 10 mg PO DAILY anxiety 02/11/22 02/14/24 History blood sugar diagnostic (Accu-Chek #450 ea 05/11/22 02/14/24 Rx Guide test strips) multivitamin (One Daily 1 tab PO DAILY 12/06/22 02/14/24 History Multivitamin tablet) cyanocobalamin (vitamin B-12) 1,000 mcg IM QMONTH 10/13/23 02/14/24 History 1,000 mcg/mL injection solution hydrochlorothiazide 25 mg tablet 25 mg PO QDAY blood pressure #90 11/23/23 02/14/24 Rx tabs levothyroxine 100 mcg tablet 100 mcg PO DAILY #90 tabs 11/23/23 02/14/24 Rx lisinopril 40 mg tablet 40 mg PO QDAY blood pressure #90 11/23/23 02/14/24 Rx tabs Wegovy 1 mg/0.5 mL subcutaneous 1 mg (0.5 mL) subcut Q7D #2 mL 02/14/24 02/14/24 Rx pen injector (semaglutide (weight loss)) insulin aspart U-100 100 unit/mL See Rx Instructions subcut QDAY 02/14/24 02/14/24 Rx subcutaneous solution (Novolog e10.9 #50 mL U-100 Insulin aspart) rosuvastatin 10 mg tablet 10 mg PO DAILY #90 tabs 02/14/24 02/14/24 Rx PFSH Medical History Overweight (BMI 25.0-29.9) Diabetes Asthma Alcohol abuse DKA (diabetic ketoacidosis) Wears glasses Post-menopausal Alcohol use Insulin dependent diabetes mellitus Diabetes Thyroid disease Smoker Mixed hyperlipidemia Benign essential hypertension Insulin pump titration Presence of insulin pump 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 Personal history of colonic polyps Hypothyroid Asthma Type 1 diabetes mellitus Snoring Vitamin B 12 deficiency Surgical History S/P hysterectomy S/P oophorectomy S/P colonoscopy S/P appendectomy Family History Father Malignant tumor of kidney Arthritis Grandfather Colon cancer Social History Smoking Status: Light Smoker (<10/day) second hand exposure: No alcohol intake: never substance use type: does not use caffeine: Yes what type of physical activity do you participate in: walking frequency: 1-2 times per week seatbelt use: always HPI HPI Chief Complaint: Diabetes Details: MAYI MATA, is a 59 F who presents to the office today for follow up. A1C is 6.8% GMI is 6.7% She is using Medtronic insulin pump with Guardian CGM and auto mode. Upload shows controlled blood sugars. She is taking Wegovy for weight loss. She has lost about 11 pounds. She feels well. She is sober. ROS Const Constitutional: No anorexia, excessive sweating, malaise, night sweats, weight change or change in appetite Eyes Eyes: No change in vision ENT ENT: No hearing loss, nasal congestion or difficulty swallowing Cardio Cardiology: No chest pain at rest, excessive sweating, shortness of breath, dyspnea on exertion, irregular heart rhythm or palpitations Musc Musculoskeletal: No abnormal gait, joint pain, numbness or tingling Neuro Neurology: No abnormal gait, memory loss, numbness or tingling Psych Psychiatric: No change in appetite, No memory loss and No Thoughts of harming yourself/Others Resp Respiratory: No cough, chest congestion or shortness of breath Gastro GI: No abdominal pain, constipation, diarrhea or difficulty swallowing Marinaela (more content not included)... Normal [facility] HBA1C (OUTSIDE)on 02-14-2024 HbA1c (Bld) [Mass fraction] 6.8 % [facility] Comment on above: per endo Dr Toro [facility] Basophil percentageOrdered B y: Cristobal Engel on 09-19-2023 Bilirubin [Mass/Vol] 0.30 mg/dL 0.20-1.00 [facility] Comment on above: For patients on eltr ombopag therapy, use of Dimension [place] TBIL is not recommended. Chloride [Moles/Vol] 109 mmol/L 98-107 [facility] Cholesterol [Mass/Vol] 174 mg/dL <200 [facility] Comment on above: <200 mg/dL Desirable 200-240 mg/dL Borderline >240 mg/dL High Risk Glucose [Mass/Vol] 115 mg/dL 74-106 [facility] Comment on above: Fasting Glucose resu lt from 100 to 125 mg/dL suggests IMPAIRED HOMEOSTASIS per A.D.A. criteria. Potassium [Moles/Vol] 4.0 mmol/L 3.5-5.1 [facility] Protein [Mass/Vol] 7.3 g/dL 6.4-8.2 [facility] Sodium [Moles/Vol] 140 mmol/L 136-145 [facility] Triglyceride [Mass/Vol] 186 mg/dL <199 [facility] Comment on above: The drugs N-Acetylcy steine and Metamizole may falsely depress this assay.Serum Triglycerides Reference Interval Normal <150 mg/dL Borderline high 150 - 199 mg/dL High 200 - 499 mg/dL Very High > or = 500 mg/dL Laboratory - Chemistry and C hemistry - challengeOrdered By: Cristobal Engel on 09-19-2023 Albumin/Globulin [Mass ratio] 1.0 {ratio} 0.9-2.4 [facility] ALP [Catalytic activity/Vol] 84 U/L 45-117 [facility] ALT [Catalytic activity/Vol] 27 U/L 13-56 [facility] Cholesterol in HDL [Mass/Vol] 55 mg/dL >40 [facility] Comment on above: The drugs N-Acetylcy steine and Metamizole may falsely depress this assay. Reference Range HDL <40 mg/dL Low HDL Cholesterol HDL >or= 60 mg/dL High HDL Cholesterol Cholesterol in LDL [Mass/Vol] 82 mg/dL 0-130 [facility] CO2 [Moles/Vol] 23.0 mmol/L 21.0-32.0 [facility] Globulin (S) [Mass/Vol] 3.6 g/dL 2.2-4.2 [facility] Urea nitrogen/Creatinine [Mass ratio] 13.2 mg/mg 10-20 [facility] MICROALBUMIN/CREATININE UR W RATIO (EXTERNAL)on 09-19-2023 Albumin/Creat Ratio 7.[address] [facility] Creatinine Urine 108.00 [facility] Microalbumin, Random urine 8.5 [facility] No Panel InformationOrdered By: Cristobal Engel on 09-19-2023 Estimated GFR (MDRD) Amer 114 mL/min >60 [facility] Comment on above: GFR Calc Estimated GFR (MDRD) Non-Af Amer 94 mL/min >60 [facility] Comment on above: Non- GFR Calc Urine Microalbumin/Creatini ne Ratio 7.9 mg/g CRE <30 [facility] Vitamin D 25-Hydroxy 63.9 ng/mL [facility] Comment on above: Vitamin D 25(OH) Sta tus Range Deficiency <20 ng/mL (50nmol/L) Insufficiency 20 - 30 ng/mL (50 - 75 nmol/L) Sufficiency 30 - 100 ng/mL (75 - 250 nmol/L) Toxicity >100 ng/mL (>250 nmol/L) VLDL Cholesterol 37 mg/dL 5-40 [facility] Serum or plasma calcium hood urement (mass/volume)Ordered By: Cristobal Engel on 09-19-2023 Calcium [Mass/Vol] 9.4 mg/dL 8.5-10.1 [facility] Serum or plasma creatinine m easurement (mass/volume)Ordered By: Cristobal Engel on 09-19-2023 Creatinine [Mass/Vol] 0.68 mg/dL 0.55-1.02 [facility] Comment on above: The validity of the calculated GFR & GFRAA in patients over 70 years has not been determined. Clinical correlation is essential. Serum or plasma thyroid stim ulating hormone (TSH) measurement (units/volume)Ordered By: Cristobal Engel on 09-19-2023 TSH Qn 1.28 uIU/mL 0.358-3.74 [facility] Serum or plasma urea nitroge n measurement (mass/volume)Ordered By: Cristobal Engel on 09-19-2023 Urea nitrogen [Mass/Vol] 9 mg/dL 7-18 [facility] Thin prep Papanicolaou smear with manual screeningOrdered By: Cristobal Engel on 09-19-2023 Thin prep Papanicolaou smear with manual screening 3.7 g/dL 3.2-5.0 [facility] Thin prep Papanicolaou smear with manual screening 30 U/L 15-37 [facility] Thin prep Papanicolaou smear with manual screening 8 5-15 [facility] Thin prep Papanicolaou smear with manual screening 8.5 mg/L NO RANGE EST. [facility] Thin prep Papanicolaou smear with manual screening 1.21 ng/dL 0.76-1.46 [facility] Urine creatinine measurement (mass/volume)Ordered By: Cristobal Engel on 09-19-2023 Creatinine (U) [Mass/Vol] 108.00 mg/dL NO RANGE EST. [facility] XR RIBS/CHEST 3V AP RIB/OBLS /CXR LEFTon 08-02-2023 [facility] XR Ribs - left Views and Chelita st PAon 08-02-2023 IMPRESSION: No radiographic evidence of acute displaced left rib fracture. 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: [facility] Transcribe Date/Time: Aug 02 2023 9:02A Dictated by : TANIA NOLAN MD This examination was interpreted and the report reviewed and electronically signed by: TANIA NOLAN MD on Aug 02 2023 9:05AM [facility] DIVISION OF RADIOLOGY * * *Final Report* * * DATE OF EXAM: Aug 02 2023 8:56AM WOX [id number] - XR RIB/CHST 3V AP RIB/OBL/CHST L / PROCEDURE REASON: Rib injury * * * * Physician Interpretation * * * * TITLE: XR RIB/CHST 3V AP RIB/OBL/CHST L CLINICAL INDICATION: Rib injury TECHNIQUE: 3 view left sided radiographic rib series with inclusion of a single frontal view of the chest COMPARISON: Chest x-ray dated March 24, 2023 FINDINGS: Stable cardiomediastinal silhouette with calcified right hilar lymph nodes. Stable mild linear scarring in the bilateral midlung zones. No new airspace consolidation. No discernible pleural effusion or pneumothorax. Battery pack partially visualized in the left upper arm. No acute displaced left rib fracture identified. DIVISION OF RADIOLOGY Provider, [facility] - 08/02/2023 * * *Final Report* * * DATE OF EXAM: Aug 02 2023 8:56AM WOX [id number] - XR RIB/CHST 3V AP RIB/OBL/CHST L / PROCEDURE REASON: Rib injury * * * * Physician Interpretation * * * * TITLE: XR RIB/CHST 3V AP RIB/OBL/CHST L CLINICAL INDICATION: Rib injury TECHNIQUE: 3 view left sided radiographic rib series with inclusion of a single frontal view of the chest COMPARISON: Chest x-ray dated March 24, 2023 FINDINGS: Stable cardiomediastinal silhouette with calcified right hilar lymph nodes. Stable mild linear scarring in the bilateral midlung zones. No new airspace consolidation. No discernible pleural effusion or pneumothorax. Battery pack partially visualized in the left upper arm. No acute displaced left rib fracture identified. IMPRESSION IMPRESSION: No radiographic evidence of acute displaced left rib fracture. 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: [facility] Transcribe Date/Time: Mar 24 2023 4:22P Dictated by : ZACARIAS GEE MD This examination was interpreted and the report reviewed and electronically signed by: ZACARIAS GEE MD on Mar 24 2023 4:23PM [facility] DIVISION OF RADIOLOGY * * *Final Report* * * DATE OF EXAM: Mar 24 2023 12:10PM WOX [id number] - XR CHEST 2V FRONTAL/LAT / PROCEDURE REASON: Abnormal x-ray * * * * Physician Interpretation * * * * EXAMINATION: CHEST RADIOGRAPH (2 VIEW FRONTAL & LATERAL) CLINICAL HISTORY: Abnormal x-ray MQ: XC2_6 EXAM DATE/TIME: 03/24/2023 12:10 PM COMPARISON: 02/14/2023 RESULT: Lines, tubes, and devices: None. Lungs and pleura: No consolidation. No lung mass. No pleural effusion. No pneumothorax. Stable midlung field atelectasis or fibrosis bilaterally. Calcified nodes are consistent with remote granulomatous disease Cardiomediastinal silhouette: Borderline cardiomediastinal silhouette. Bones and soft tissues: Unremarkable. [facility] * * *Final Report* * * DATE OF EXAM: Mar 24 2023 12:10PM WOX [id number] - XR CHEST 2V FRONTAL/LAT / PROCEDURE REASON: Abnormal x-ray * * * * Physician Interpretation * * * * EXAMINATION: CHEST RADIOGRAPH (2 VIEW FRONTAL & LATERAL) CLINICAL HISTORY: Abnormal x-ray MQ: XC2_6 EXAM DATE/TIME: 03/24/2023 12:10 PM COMPARISON: 02/14/2023 RESULT: Lines, tubes, and devices: None. Lungs and pleura: No consolidation. No lung mass. No pleural effusion. No pneumothorax. Stable midlung field atelectasis or fibrosis bilaterally. Calcified nodes are consistent with remote granulomatous disease Cardiomediastinal silhouette: Borderline cardiomediastinal silhouette. Bones and soft tissues: Unremarkable. IMPRESSION IMPRESSION: Unchanged midlung field atelectasis or fibrosis bilaterally. 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: [facility] Transcribe Date/Time: Mar 24 2023 4:22P Dictated by : ZACARIAS GEE MD This examination was interpreted and the report reviewed and electronically signed by: ZACARIAS GEE MD on Mar 24 2023 4:23PM EST [facility] Radiology Study observation (narrative) [facility] XR Chest PA and LateralOrder ed By: [facility] Provider on 03-24-2023 [facility] CBC W Auto Differential pane l (Bld)on 02-15-2023 Basophils (Bld) [#/Vol] 0.09 10*3/uL <0.11 k/uL [facility] Basophils/100 WBC (Bld) 1.1 % [facility] Differential cell count method Nom (Bld) Auto [facility] Eosinophils (Bld) [#/Vol] 0.16 10*3/uL <0.46 k/uL [facility] Eosinophils/100 WBC (Bld) 1.9 % [facility] Erythrocyte distribution width (RBC) [Ratio] 14.4 % 11.5 - 15.0 % [facility] Hematocrit (Bld) [Volume fraction] 39.3 % 36.0 - 46.0 % [facility] Hemoglobin (Bld) [Mass/Vol] 13.3 g/dL 11.5 - 15.5 g/dL [facility] Immature granulocytes (Bld) [#/Vol] 0.04 10*3/uL <0.10 k/uL [facility] Immature granulocytes/100 WBC (Bld) 0.5 % [facility] Lymphocytes (Bld) [#/Vol] 2.10 10*3/uL 1.00 - 4.00 k/uL [facility] Lymphocytes/100 WBC (Bld) 25.3 % [facility] MCH (RBC) [Entitic mass] 33.4 pg 26.0 - 34.0 pg [facility] MCHC (RBC) [Mass/Vol] 33.8 g/dL 30.5 - 36.0 g/dL [facility] MCV (RBC) [Entitic vol] 98.7 fL 80.0 - 100.0 fL [facility] Monocytes (Bld) [#/Vol] 0.29 10*3/uL <0.87 k/uL [facility] Monocytes/100 WBC (Bld) 3.5 % [facility] Neutrophils (Bld) [#/Vol] 5.62 10*3/uL 1.45 - 7.50 k/uL [facility] Neutrophils/100 WBC (Bld) 67.7 % [facility] Nucleated RBC (Bld) [#/Vol] <0.01 k/uL [facility] Nucleated RBC/100 WBC (Bld) [Ratio] 0.0 /100 WBC [facility] Platelet mean volume (Bld) [Entitic vol] 11.2 fL 9.0 - 12.7 fL [facility] Platelets (Bld) [#/Vol] 289 10*3/uL 150 - 400 k/uL [facility] RBC (Bld) [#/Vol] 3.98 10*6/uL 3.90 - 5.2 0 m/uL [facility] WBC (Bld) [#/Vol] 8.30 10*3/uL 3.70 - 11.00 k/uL [facility] XR Chest PA and Lateralon IMPRESSION: Minimal atelectasis or fibrosis within the right middle lobe and lingula. Follow-up to document resolution recommended 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: SAWYER Transcribe Date/Time: Feb 15 2023 4:59P Dictated by : ZACARIAS GEE MD This examination was interpreted and the report reviewed and electronically signed by: ZACARIAS GEE MD on Feb 15 2023 5:00PM [facility] DIVISION OF RADIOLOGY * * *Final Report* * * DATE OF EXAM: Feb 14 2023 4:22PM WOX [id number] - XR CHEST 2V FRONTAL/LAT / PROCEDURE REASON: Subacute cough * * * * Physician Interpretation * * * * EXAMINATION: CHEST RADIOGRAPH (2 VIEW FRONTAL & LATERAL) CLINICAL HISTORY: Subacute cough MQ: XC2_6 EXAM DATE/TIME: 02/14/2023 4:22 PM COMPARISON: No relevant prior studies available. RESULT: Lines, tubes, and devices: None. Lungs and pleura: No consolidation. No lung mass. No pleural effusion. No pneumothorax. Minimal atelectasis or fibrosis within the right middle lobe and lingula. Cardiomediastinal silhouette: Normal cardiomediastinal silhouette. Bones and soft tissues: Unremarkable. DIVISION OF RADIOLOGY Provider, [facility] - 02/15/2023 * * *Final Report* * * DATE OF EXAM: Feb 14 2023 4:22PM WOX [id number] - XR CHEST 2V FRONTAL/LAT / PROCEDURE REASON: Subacute cough * * * * Physician Interpretation * * * * EXAMINATION: CHEST RADIOGRAPH (2 VIEW FRONTAL & LATERAL) CLINICAL HISTORY: Subacute cough MQ: XC2_6 EXAM DATE/TIME: 02/14/2023 4:22 PM COMPARISON: No relevant prior studies available. RESULT: Lines, tubes, and devices: None. Lungs and pleura: No consolidation. No lung mass. No pleural effusion. No pneumothorax. Minimal atelectasis or fibrosis within the right middle lobe and lingula. Cardiomediastinal silhouette: Normal cardiomediastinal silhouette. Bones and soft tissues: Unremarkable. IMPRESSION IMPRESSION: Minimal atelectasis or fibrosis within the right middle lobe and lingula. Follow-up to document resolution recommended 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: PSCB Transcribe Date/Time: Feb 15 2023 4:59P Dictated by : ZACARIAS GEE MD This examination was interpreted and the report reviewed and electronically signed by: ZACARIAS GEE MD on Feb 15 2023 5:00PM EST [facility] XR Chest PA and LateralOrder ed By: [facility] Provider on 02-15-2023 [facility] XR Chest PA and Lateralon Radiology Study observation (narrative) [facility] Whole blood hemoglobin A1c/t otal hemoglobin ratio (mass fraction)Ordered By: Dr. Engel on 12-03-2022 HbA1c (Bld) [Mass fraction] 8.2 % 3.8-5.6 [facility] Comment on above: Normal < 5.7 % Predi abetic 5.7 - 6.4 % Diabetic >or= 6.5 % Please note range changes. UA DIP, URINE (POC)on 2022 BILIRUBIN UA (POCT) Negative Negative [facility] CLARITY UA (POCT) Slightly Cloudy Cl [facility] COLOR UA (POCT) Dark yellow [facility] GLUCOSE UA (POCT) Negative Negative mg/dL [facility] HEMOGLOBIN/BLOOD UA (POCT) Negative Negative [facility] KETONE UA (POCT) Negative Negative mg/dL [facility] LEUKOCYTES UA (POCT) Trace Abnormal Negative [facility] NITRITE UA (POCT) Positive Abnormal Negative [facility] PH UA (POCT) 6.0 4.5 - 8.0 [facility] Protein Ql (U) 30 mg/dL Abnormal Negative mg/dL [facility] SPECIFIC GRAVITY UA (POCT) >=1.030 1.005 - 1.030 [facility] UROBILINOGEN UA (POCT) 0.2 E.U./dL Normal E.U./dL [facility] Basophil percentageOrdered B y: Dr. Engel on 07-06-2022 Bilirubin [Mass/Vol] 0.40 mg/dL 0.20-1.00 [facility] Comment on above: For patients on eltr ombopag therapy, use of [place]ension [place] TBIL is not recommended. Chloride [Moles/Vol] 108 mmol/L 98-107 [facility] Cholesterol [Mass/Vol] 178 mg/dL <200 [facility] Comment on above: <200 mg/dL Desirable 200-240 mg/dL Borderline >240 mg/dL High Risk Glucose [Mass/Vol] 149 mg/dL 74-106 [facility] Comment on above: Fasting Glucose resu lt greater than or equal to 126 mg/dL suggests DIABETES MELLITUS per A.D.A. criteria. Potassium [Moles/Vol] 4.5 mmol/L 3.5-5.1 [facility] Protein [Mass/Vol] 7.7 g/dL 6.4-8.2 [facility] Sodium [Moles/Vol] 137 mmol/L 136-145 [facility] Triglyceride [Mass/Vol] 97 mg/dL <199 [facility] Comment on above: The drugs N-Acetylcy steine and Metamizole may falsely depress this assay.Serum Triglycerides Reference Interval Normal <150 mg/dL Borderline high 150 - 199 mg/dL High 200 - 499 mg/dL Very High > or = 500 mg/dL LIPID PANEL (OUTSIDE)on 06-27 VLDL Cholesterol 19 [facility] Laboratory - Chemistry and C hemistry - challengeOrdered By: Dr. Engel on 07-06-2022 ALP [Catalytic activity/Vol] 100 U/L 45-117 [facility] ALT [Catalytic activity/Vol] 22 U/L 13-56 [facility] CO2 [Moles/Vol] 24.0 mmol/L 21.0-32.0 [facility] Free T4 [Mass/Vol] 1.14 ng/dL 0.76-1.46 [facility] Globulin (S) [Mass/Vol] 3.9 g/dL 2.2-4.2 [facility] Urea nitrogen/Creatinine [Mass ratio] 18.1 mg/mg 10-20 [facility] Laboratory - Hematology and Cell countson 07-06-2022 HbA1c (Bld) [Mass fraction] 7.7 % [facility] No Panel InformationOrdered By: Dr. Engel on 07-06-2022 Estimated GFR (MDRD) Amer 98 mL/min >60 [facility] Comment on above: GFR Calc Estimated GFR (MDRD) Non-Af Amer 81 mL/min >60 [facility] Comment on above: Non- GFR Calc Thyroid Stimulating Hormone (TSH) 0.37 uIU/mL 0.358-3.74 [facility] Urine Microalbumin/Creatini ne Ratio 14.0 mg/g CRE <30 [facility] Serum or plasma albumin hood urement (mass/volume)Ordered By: Dr. Engel on 07-06-2022 Albumin [Mass/Vol] 3.8 g/dL 3.2-5.0 [facility] Serum or plasma albumin/glob ulin mass ratioOrdered By: Dr. Engel on 07-06-2022 Albumin/Globulin [Mass ratio] 1.0 {ratio} 0.9-2.4 [facility] Serum or plasma calcium hood urement (mass/volume)Ordered By: Dr. Engel on 07-06-2022 Calcium [Mass/Vol] 9.8 mg/dL 8.5-10.1 [facility] Serum or plasma cholesterol in HDL measurement (mass/volume)Ordered By: Dr. Engel on 07-06-2022 Cholesterol in HDL [Mass/Vol] 70 mg/dL >40 [facility] Comment on above: The drugs N-Acetylcy steine and Metamizole may falsely depress this assay. Reference Range HDL <40 mg/dL Low HDL Cholesterol HDL >or= 60 mg/dL High HDL Cholesterol Serum or plasma cholesterol in VLDL measurement (mass/volume)Ordered By: Dr. Engel on 07-06-2022 Cholesterol in VLDL [Mass/Vol] 19 mg/dL 5-40 [facility] Serum or plasma creatinine m easurement (mass/volume)Ordered By: Dr. Engel on 07-06-2022 Creatinine [Mass/Vol] 0.78 mg/dL 0.55-1.02 [facility] Comment on above: The validity of the calculated GFR & GFRAA in patients over 70 years has not been determined. Clinical correlation is essential. Serum or plasma low density lipoprotein (LDL) cholesterol measurement (mass/volume)Ordered By: Dr. Engel on 07-06-2022 Cholesterol in LDL [Mass/Vol] 89 mg/dL 0-130 [facility] Serum or plasma urea nitroge n measurement (mass/volume)Ordered By: Dr. Engel on 07-06-2022 Urea nitrogen [Mass/Vol] 14 mg/dL 7-18 [facility] Thin prep Papanicolaou smear with manual screeningOrdered By: Dr. Engel on 07-06-2022 Thin prep Papanicolaou smear with manual screening 19 U/L 15-37 [facility] Thin prep Papanicolaou smear with manual screening 5 5-15 [facility] Thin prep Papanicolaou smear with manual screening 16.2 mg/L NO RANGE EST. [facility] Urine creatinine measurement (mass/volume)Ordered By: Dr. Engel on 07-06-2022 Creatinine (U) [Mass/Vol] 116.00 mg/dL NO RANGE EST. [facility] UA DIP, URINE (POC)on 2021 BILIRUBIN UA (POCT) Moderate Abnormal Negative [facility] CLARITY UA (POCT) Clear [facility] COLOR UA (POCT) [place] [facility] GLUCOSE UA (POCT) 250 mg/dL Abnormal Negative mg/dL [facility] HEMOGLOBIN/BLOOD UA (POCT) Large Abnormal Negative [facility] KETONE UA (POCT) 15 mg/dL Abnormal Negative mg/dL [facility] LEUKOCYTES UA (POCT) Large Abnormal Negative [facility] NITRITE UA (POCT) Positive Abnormal Negative [facility] PH UA (POCT) 5.0 4.5 - 8.0 [facility] Protein Ql (U) >=300 Abnormal Negative mg/dL [facility] SPECIFIC GRAVITY UA (POCT) 1.010 1.005 - 1.030 [facility] UROBILINOGEN UA (POCT) >=8.0 Abnormal Normal E.U./dL [facility] Glucose Glucometer (BldC) [M ass/Vol]on 02-23-2022 Glucose [Mass/Vol] 70 mg/dL 74-106 [facility] Work Phone: Comment on above: MANAGEMENT OF PATIEN T CARE PER NURSING PROTOCOL Basophil percentageon 2021 Chloride [Moles/Vol] 102 mmol/L 98-107 [facility] Work Phone: Glucose [Mass/Vol] 274 mg/dL 74-106 [facility] Work Phone: Comment on above: Glucose result great er than or equal to 200 mg/dLsuggests DIABETES MELLITUS per A.D.A. criteria. Potassium [Moles/Vol] 3.7 mmol/L 3.5-5.1 [facility] Work Phone: Sodium [Moles/Vol] 133 mmol/L 136-145 [facility] Work Phone: Bilirubin [Mass/Vol] 0.60 mg/dL 0.20-1.00 [facility] Work Phone: Comment on above: For patients on eltr ombopag therapy, use of [place] TBIL is not recommended. Protein [Mass/Vol] 6.2 g/dL 6.4-8.2 [facility] Work Phone: Laboratory - Chemistry and C hemistry - challengeon 02-22-2022 CO2 [Moles/Vol] 23.0 mmol/L 21.0-32.0 [facility] Work Phone: Magnesium [Mass/Vol] 1.5 mg/dL 1.6-2.6 [facility] Work Phone: Urea nitrogen/Creatinine [Mass ratio] 9.6 mg/mg 10-20 [facility] Work Phone: ALP [Catalytic activity/Vol] 97 U/L 45-117 [facility] Work Phone: ALT [Catalytic activity/Vol] 33 U/L 13-56 [facility] Work Phone: Globulin (S) [Mass/Vol] 3.2 g/dL 2.2-4.2 [facility] Work Phone: No Panel Informationon 02-22 Estimated Creatinine Clearance Calc 56.33 ml/min [facility] Work Phone: Estimated GFR (MDRD) Amer 79 mL/min >60 [facility] Work Phone: Comment on above: GFR Calc Estimated GFR (MDRD) Non-Af Amer 65 mL/min >60 [facility] Work Phone: Comment on above: Non- GFR Calc Serum or plasma albumin hood urement (mass/volume)on 02-22-2022 Albumin [Mass/Vol] 3.0 g/dL 3.2-5.0 [facility] Work Phone: Serum or plasma albumin/glob ulin mass ratioon 02-22-2022 Albumin/Globulin [Mass ratio] 0.9 {ratio} 0.9-2.4 [facility] Work Phone: Serum or plasma calcium hood urement (mass/volume)on 02-22-2022 Calcium [Mass/Vol] 9.0 mg/dL 8.5-10.1 [facility] Work Phone: Serum or plasma creatinine m easurement (mass/volume)on 02-22-2022 Creatinine [Mass/Vol] 0.94 mg/dL 0.55-1.02 [facility] Work Phone: Comment on above: The validity of the calculated GFR & GFRAA in patients over 70 years has not been determined. Clinical correlation is essential. Serum or plasma urea nitroge n measurement (mass/volume)on 02-22-2022 Urea nitrogen [Mass/Vol] 9 mg/dL 7-18 [facility] Work Phone: Thin prep Papanicolaou smear with manual screeningon 02-22-2022 Thin prep Papanicolaou smear with manual screening 8 5-15 [facility] Work Phone: Thin prep Papanicolaou smear with manual screening 46 U/L 15-37 [facility] Work Phone: Absolute lymphocyte counton 02-21-2022 Lymphocytes Auto (Unsp spec) [#/Vol] 1.88 10*3/uL 0.83-4.51 [facility] Work Phone: Basophil percentageon 2021 Basophil percentage 2.0 mg/dL 2.5-4.9 [facility] Work Phone: Basophils/100 WBC (Bld) 0.3 % 0-1 [facility] Work Phone: Bilirubin [Mass/Vol] 0.60 mg/dL 0.20-1.00 [facility] Work Phone: Comment on above: For patients on eltr ombopag therapy, use of [place] TBIL is not recommended. Chloride [Moles/Vol] 91 mmol/L 98-107 [facility] Work Phone: Eosinophils/100 WBC (Bld) 0.3 % 0-5 [facility] Work Phone: Glucose [Mass/Vol] 52 mg/dL 74-106 [facility] Work Phone: Neutrophils (Bld) [#/Vol] 6.4 10*3/uL 2.0-7.7 [facility] Work Phone: Neutrophils/100 WBC (Bld) 71.7 % 47-70 [facility] Work Phone: Potassium [Moles/Vol] 3.2 mmol/L 3.5-5.1 [facility] Work Phone: Protein [Mass/Vol] 6.7 g/dL 6.4-8.2 [facility] Work Phone: Sodium [Moles/Vol] 127 mmol/L 136-145 [facility] Work Phone: WBC (Bld) [#/Vol] 9.0 10*3/uL 4.4-11.0 [facility] Work Phone: Blood erythrocytes count (nu mber/volume)on 02-21-2022 RBC (Bld) [#/Vol] 3.59 10*6/uL 4.2-5.4 [facility] Work Phone: Blood hemoglobin measurement (mass/volume)on 02-21-2022 Hemoglobin (Bld) [Mass/Vol] 11.8 g/dL 12.0-15.0 [facility] Work Phone: Blood lymphocytes/100 leukoc yteson 02-21-2022 Lymphocytes/100 WBC (Bld) 20.9 % 19-41 [facility] Work Phone: Blood monocytes/100 leukocyt eson 02-21-2022 Monocytes/100 WBC (Bld) 6.5 % 0-10 [facility] Work Phone: Blood platelet mean volumeon 02-21-2022 Platelet mean volume (Bld) [Entitic vol] 10.5 fL 6.2-12.0 [facility] Work Phone: Determination of erythrocyte mean corpuscular volume (MCV)on 02-21-2022 MCV (RBC) [Entitic vol] 95.0 fL 81-99 [facility] Work Phone: Hematocrit Auto (Bld) [Volum e fraction]on 02-21-2022 Hematocrit (Bld) [Volume fraction] 34.1 % 37-47 [facility] Work Phone: INR in Blood by Coagulation assayon 02-21-2022 INR Coag (Bld) [Relative time] 0.9 {INR} [facility] Work Phone: Laboratory - Chemistry and C hemistry - challengeon 02-21-2022 ALP [Catalytic activity/Vol] 94 U/L 45-117 [facility] Work Phone: ALT [Catalytic activity/Vol] 40 U/L 13-56 [facility] Work Phone: CO2 [Moles/Vol] 24.0 mmol/L 21.0-32.0 [facility] Work Phone: Globulin (S) [Mass/Vol] 3.2 g/dL 2.2-4.2 [facility] Work Phone: Urea nitrogen/Creatinine [Mass ratio] 9.4 mg/mg 10-20 [facility] Work Phone: Laboratory - Coagulationon 0 02-21-2022 PT Coag (PPP) [Time] 11.8 s 11.7-14.9 [facility] Work Phone: Laboratory - Drug toxicology on 02-21-2022 Amphetamines Ql (U) Negative <1000 ng/mL [facility] Work Phone: Benzodiazepines Ql (U) Negative < 200 ng/mL [facility] Work Phone: Cannabinoids Screen Ql (U) Negative < 50 ng/mL [facility] Work Phone: Cocaine Ql (U) Negative < 300 ng/mL [facility] Work Phone: Opiates Ql (U) Negative < 300 ng/mL [facility] Work Phone: Laboratory - Hematology and Cell countson 02-21-2022 Erythrocyte distribution width (RBC) [Entitic vol] 42.4 fL 35.1-43.9 [facility] Work Phone: Erythrocyte distribution width (RBC) [Ratio] 12.1 % 11.6-14.6 [facility] Work Phone: Immature granulocytes/100 WBC (Bld) 0.300 % 0.0-0.9 [facility] Work Phone: Comment on above: IG% - Immature Granu locytes (promyelocytes, myelocytes and metamyelocytes) > 1% indicates that a LEFT SHIFT is Present. MCH (RBC) [Entitic mass] 32.9 pg 27.0-32.0 [facility] Work Phone: Nucleated RBC/100 WBC (Bld) [Ratio] 0 % 0-5 [facility] Work Phone: MCHC Auto (RBC) [Mass/Vol]on 02-21-2022 MCHC (RBC) [Mass/Vol] 34.6 g/dL 32-36 [facility] Work Phone: No Panel Informationon 02-21 Estimated Creatinine Clearance Calc 82.74 ml/min [facility] Work Phone: Estimated GFR (MDRD) Amer 123 mL/min >60 [facility] Work Phone: Comment on above: GFR Calc Estimated GFR (MDRD) Non-Af Amer 102 mL/min >60 [facility] Work Phone: Comment on above: Non- GFR Calc Ethyl Alcohol Level < 3.0 mg/dL [facility] Work Phone: Comment on above: The serum:whole bloo d ethanol ratio is approximately 1.14and varies slightly with hematocrit. Medical Alcohol reference interval and critical value innon-tolerant individuals; 50 - 100 Impairment 100 Intoxication 100 - 250 Severe Poisoning 250 - 400 Deep/possible fatal coma MDMA (Ecstasy) Screen Negative < 500 ng/mL [facility] Work Phone: Urine Barbiturates Screen Positive < 200 ng/mL [facility] Work Phone: Urine Drug Screen Comment [facility] Work Phone: Comment on above: CONFIRMATORY TESTING FOR ALL POSITIVE URINE DRUG SCREENRESULTS WILL ONLY BE SENT OUT UPON PHYSICIAN ORDER. VISTA Urine Drug Screen methods provide only preliminaryanalytical test results. A more specific alternate chemicalmethod must be used in order to obtain a confirmedanalytical result. Gas chromatography/mass spectrometery(GC/MS) is the preferred confirmatory method. Clinicalconsideration and professional judgement should be appliedto any drug of abuse test result, particularly whenpreliminary positive results are used. URINE TCA TESTING MUST BE ORDERED SEPARATELY. USE TESTMNEMONIC: [facility] Urine Methadone Screen Negative < 300 ng/mL [facility] Work Phone: Platelets bldon 02-21-2022 Platelets (Bld) [#/Vol] 263 10*3/uL 150-450 [facility] Work Phone: Serum or plasma albumin hood urement (mass/volume)on 02-21-2022 Albumin [Mass/Vol] 3.5 g/dL 3.2-5.0 [facility] Work Phone: Serum or plasma albumin/glob ulin mass ratioon 02-21-2022 Albumin/Globulin [Mass ratio] 1.1 {ratio} 0.9-2.4 [facility] Work Phone: Serum or plasma calcium hood urement (mass/volume)on 02-21-2022 Calcium [Mass/Vol] 9.0 mg/dL 8.5-10.1 [facility] Work Phone: Serum or plasma creatinine m easurement (mass/volume)on 02-21-2022 Creatinine [Mass/Vol] 0.64 mg/dL 0.55-1.02 [facility] Work Phone: Comment on above: The validity of the calculated GFR & GFRAA in patients over 70 years has not been determined. Clinical correlation is essential. Serum or plasma urea nitroge n measurement (mass/volume)on 02-21-2022 Urea nitrogen [Mass/Vol] 6 mg/dL 7-18 [facility] Work Phone: Thin prep Papanicolaou smear with manual screeningon 02-21-2022 Thin prep Papanicolaou smear with manual screening 61 U/L 15-37 [facility] Work Phone: Thin prep Papanicolaou smear with manual screening 12 5-15 [facility] Work Phone: Urine phencyclidine (PCP) de tectionon 02-21-2022 Phencyclidine Ql (U) Negative < 25 ng/mL [facility] Work Phone: Laboratory - Hematology and Cell countson 02-11-2022 HbA1c (Bld) [Mass fraction] 7.7 % [facility] Absolute lymphocyte counton 10-18-2021 Lymphocytes Auto (Unsp spec) [#/Vol] 1.52 10*3/uL 0.83-4.51 [facility] Work Phone: Basophil percentageon 2021 Basophils/100 WBC (Bld) 0.6 % 0-1 [facility] Work Phone: Chloride [Moles/Vol] 101 mmol/L 98-107 [facility] Work Phone: Eosinophils/100 WBC (Bld) 0.6 % 0-5 [facility] Work Phone: Glucose [Mass/Vol] 195 mg/dL 74-106 [facility] Work Phone: Comment on above: Fasting Glucose resu lt greater than or equal to 126 mg/dL suggests DIABETES MELLITUS per A.D.A. criteria. Neutrophils (Bld) [#/Vol] 3.3 10*3/uL 2.0-7.7 [facility] Work Phone: Neutrophils/100 WBC (Bld) 62.3 % 47-70 [facility] Work Phone: Potassium [Moles/Vol] 4.0 mmol/L 3.5-5.1 [facility] Work [facility]: Sodium [Moles/Vol] 131 mmol/L 136-145 [facility] Work Phone: WBC (Bld) [#/Vol] 5.3 10*3/uL 4.4-11.0 [facility] Work Phone: Blood erythrocytes count (nu mber/volume)on 10-18-2021 RBC (Bld) [#/Vol] 3.31 10*6/uL 4.2-5.4 [facility]: Blood hemoglobin measurement (mass/volume)on 10-18-2021 Hemoglobin (Bld) [Mass/Vol] 11.1 g/dL 12.0-15.0 [facility] Work Phone: Blood lymphocytes/100 leukoc yteson 10-18-2021 Lymphocytes/100 WBC (Bld) 28.9 % 19-41 [facility] Work Phone: Blood monocytes/100 leukocyt eson 10-18-2021 Monocytes/100 WBC (Bld) 7.2 % 0-10 [facility] Work Phone: Blood platelet mean volumeon 10-18-2021 Platelet mean volume (Bld) [Entitic vol] 9.9 fL 6.2-12.0 [facility] Work Phone: Determination of erythrocyte mean corpuscular volume (MCV)on 10-18-2021 MCV (RBC) [Entitic vol] 95.2 fL 81-99 [facility] Work Phone: Glucose Glucometer (BldC) [M ass/Vol]on 10-18-2021 Glucose [Mass/Vol] 136 mg/dL 74-106 [facility] Work Phone: Comment on above: MANAGEMENT OF PATIEN T CARE PER NURSING PROTOCOL Hematocrit Auto (Bld) [Volum e fraction]on 10-18-2021 Hematocrit (Bld) [Volume fraction] 31.5 % 37-47 [facility] Work Phone: Laboratory - Chemistry and C hemistry - challengeon 10-18-2021 CO2 [Moles/Vol] 18.0 mmol/L 21.0-32.0 [facility] Work Phone: Urea nitrogen/Creatinine [Mass ratio] 8.9 mg/mg 10-20 [facility] Work Phone: Laboratory - Hematology and Cell countson 10-18-2021 Erythrocyte distribution width (RBC) [Entitic vol] 44.3 fL 35.1-43.9 [facility] Work Phone: Erythrocyte distribution width (RBC) [Ratio] 12.8 % 11.6-14.6 [facility] Work Phone: Immature granulocytes/100 WBC (Bld) 0.400 % 0.0-0.9 [facility] Work Phone: Comment on above: IG% - Immature Granu locytes (promyelocytes, myelocytes and metamyelocytes) > 1% indicates that a LEFT SHIFT is Present. MCH (RBC) [Entitic mass] 33.5 pg 27.0-32.0 [facility] Work Phone: Nucleated RBC/100 WBC (Bld) [Ratio] 0 % 0-5 [facility] Work Phone: MCHC Auto (RBC) [Mass/Vol]on 10-18-2021 MCHC (RBC) [Mass/Vol] 35.2 g/dL 32-36 [facility] Work Phone: No Panel Informationon 10-18 Estimated Creatinine Clearance Calc 95.71 ml/min [facility] Work Phone: Estimated GFR (MDRD) Amer 142 mL/min >60 [facility] Work Phone: Comment on above: GFR Calc Estimated GFR (MDRD) Non-Af Amer 117 mL/min >60 [facility] Work Phone: Comment on above: Non- GFR Calc Platelets bldon 10-18-2021 Platelets (Bld) [#/Vol] 208 10*3/uL 150-450 [facility] Work Phone: Serum or plasma calcium hood urement (mass/volume)on 10-18-2021 Calcium [Mass/Vol] 7.4 mg/dL 8.5-10.1 [facility] Work Phone: Serum or plasma creatinine m easurement (mass/volume)on 10-18-2021 Creatinine [Mass/Vol] 0.56 mg/dL 0.55-1.02 [facility] Work Phone: Comment on above: The validity of the calculated GFR & GFRAA in patients over 70 years has not been determined. Clinical correlation is essential. Serum or plasma urea nitroge n measurement (mass/volume)on 10-18-2021 Urea nitrogen [Mass/Vol] 5 mg/dL 7-18 [facility] Work Phone: Thin prep Papanicolaou smear with manual screeningon 10-18-2021 Thin prep Papanicolaou smear with manual screening 12 5-15 [facility] Work Phone: Absolute lymphocyte counton 10-17-2021 Lymphocytes Auto (Unsp spec) [#/Vol] 0.87 10*3/uL 0.83-4.51 [facility] Work Phone: Basophil percentageon 2021 Basophil percentage 0 SEEN /hpf [facility] Work Phone: Basophils/100 WBC (Bld) 0.6 % 0-1 [facility] [place] Work Phone: Eosinophils/100 WBC (Bld) 0.2 % 0-5 [facility] [place] Work Phone: Neutrophils (Bld) [#/Vol] 4.0 10*3/uL 2.0-7.7 [facility] [place] Work Phone: Neutrophils/100 WBC (Bld) 75.0 % 47-70 [facility] [place] Work Phone: WBC (Bld) [#/Vol] 5.4 10*3/uL 4.4-11.0 [facility] Work Phone: Bilirubin [Mass/Vol] 1.00 mg/dL 0.20-1.00 [facility] Work Phone: Comment on above: For patients on eltr ombopag therapy, use of Dimension [place] TBIL is not recommended. Chloride [Moles/Vol] 85 mmol/L 98-107 [facility] Work Phone: Glucose [Mass/Vol] 229 mg/dL 74-106 [facility] Work Phone: Comment on above: Glucose result great er than or equal to 200 mg/dLsuggests DIABETES MELLITUS per A.D.A. criteria. Potassium [Moles/Vol] 4.2 mmol/L 3.5-5.1 [facility] Work Phone: Protein [Mass/Vol] 6.7 g/dL 6.4-8.2 [facility] Work Phone: Sodium [Moles/Vol] 121 mmol/L 136-145 [facility] Work Phone: Bilirubin Test strip Ql (U)o n 10-17-2021 Bilirubin Ql (U) Negative Negative [facility] [place] Work Phone: Blood erythrocytes count (nu mber/volume)on 10-17-2021 RBC (Bld) [#/Vol] 3.17 10*6/uL 4.2-5.4 [facility] Work Phone: Blood hemoglobin measurement (mass/volume)on 10-17-2021 Hemoglobin (Bld) [Mass/Vol] 10.8 g/dL 12.0-15.0 [facility] [place] Work Phone: Blood lymphocytes/100 leukoc yteson 10-17-2021 Lymphocytes/100 WBC (Bld) 16.2 % 19-41 [facility] [place] Work Phone: Blood monocytes/100 leukocyt eson 10-17-2021 Monocytes/100 WBC (Bld) 7.4 % 0-10 [facility] [place] Work Phone: Blood platelet mean volumeon 10-17-2021 Platelet mean volume (Bld) [Entitic vol] 10.0 fL 6.2-12.0 [facility] [place] Work Phone: Determination of erythrocyte mean corpuscular volume (MCV)on 10-17-2021 MCV (RBC) [Entitic vol] 96.2 fL 81-99 [facility] [place] Work Phone: Direct bilirubinon Bilirubin.direct [Mass/Vol] 0.43 mg/dL 0.00-0.30 [facility] [place] Work Phone: Hematocrit Auto (Bld) [Volum e fraction]on 10-17-2021 Hematocrit (Bld) [Volume fraction] 30.5 % 37-47 [facility] [place] Work Phone: Ketones Test strip Ql (U)on 10-17-2021 Ketones Ql (U) 150 mg/dl Negative [facility] [place] Work Phone: Comment on above: CRITICAL VALUE *H Laboratory - Chemistry and C hemistry - challengeon 10-17-2021 ALP [Catalytic activity/Vol] 138 U/L 45-117 [facility] [place] Work Phone: ALT [Catalytic activity/Vol] 51 U/L 13-56 [facility] [place] Work Phone: CO2 [Moles/Vol] 17.0 mmol/L 21.0-32.0 [facility] [place] Work Phone: Globulin (S) [Mass/Vol] 3.0 g/dL 2.2-4.2 [facility] [place] Work Phone: Lipase [Catalytic activity/Vol] 58 U/L 73-393 [facility] [place] Work Phone: Urea nitrogen/Creatinine [Mass ratio] 8.5 mg/mg 10-20 [facility] [place] Work Phone: Laboratory - Hematology and Cell countson 10-17-2021 Erythrocyte distribution width (RBC) [Entitic vol] 45.1 fL 35.1-43.9 [facility] [place] Work Phone: Erythrocyte distribution width (RBC) [Ratio] 12.8 % 11.6-14.6 [facility] [place] Work Phone: Immature granulocytes/100 WBC (Bld) 0.600 % 0.0-0.9 [facility] [place] Work Phone: Comment on above: IG% - Immature Granu locytes (promyelocytes, myelocytes and metamyelocytes) > 1% indicates that a LEFT SHIFT is Present. MCH (RBC) [Entitic mass] 34.1 pg 27.0-32.0 [facility] [place] Work Phone: Nucleated RBC/100 WBC (Bld) [Ratio] 0 % 0-5 [facility] [place] Work Phone: MCHC Auto (RBC) [Mass/Vol]on 10-17-2021 MCHC (RBC) [Mass/Vol] 35.4 g/dL 32-36 [facility] Work Phone: Mucus LM Ql (Urine sed)on Mucus Ql (Urine sed) 0 SEEN /hpf [facility] Work Phone: Nitrite Test strip Ql (U)on 10-17-2021 Nitrite Ql (U) Negative Negative [facility] [place] Work Phone: No Panel Informationon 10-17 Estimated Creatinine Clearance Calc 75.49 ml/min [facility] [place] Work Phone: Estimated GFR (MDRD) Amer 109 mL/min >60 [facility] [place] Work Phone: Comment on above: GFR Calc Estimated GFR (MDRD) Non-Af Amer 90 mL/min >60 [facility] [place] Work Phone: Comment on above: Non- GFR Calc Platelets bldon 10-17-2021 Platelets (Bld) [#/Vol] 202 10*3/uL 150-450 [facility] [place] Work Phone: Protein Test strip Ql (U)on 10-17-2021 Protein Ql (U) Negative Negative [facility] [place] Work Phone: Serum or plasma acetone hood urement (mass/volume)on 10-17-2021 Acetone [Mass/Vol] MODERATE NEG [facility] Work Phone: Serum or plasma albumin hood urement (mass/volume)on 10-17-2021 Albumin [Mass/Vol] 3.7 g/dL 3.2-5.0 [facility] Work Phone: Serum or plasma calcium hood urement (mass/volume)on 10-17-2021 Calcium [Mass/Vol] 8.5 mg/dL 8.5-10.1 [facility] Work Phone: Serum or plasma creatinine m easurement (mass/volume)on 10-17-2021 Creatinine [Mass/Vol] 0.71 mg/dL 0.55-1.02 [facility] Work Phone: Comment on above: The validity of the calculated GFR & GFRAA in patients over 70 years has not been determined. Clinical correlation is essential. Serum or plasma urea nitroge n measurement (mass/volume)on 10-17-2021 Urea nitrogen [Mass/Vol] 6 mg/dL 7-18 [facility] [place] Work Phone: Squamous epithelial cells de tection in urine sediment by light microscopyon 10-17-2021 Epithelial cells.squamous LM Ql (Urine sed) 0 SEEN /hpf [facility] [place] Work Phone: Thin prep Papanicolaou smear with manual screeningon 10-17-2021 Thin prep Papanicolaou smear with manual screening 102 U/L 15-37 [facility] [place] Work Phone: Thin prep Papanicolaou smear with manual screening 19 5-15 [facility] [place] Work Phone: Urine blood detectionon 09-26 RBC Ql (U) Negative Negative [facility] [place] Work Phone: RBC Ql (U) 0 SEEN /hpf [facility] [place] Work Phone: Urine clarityon 10-17-2021 Clarity (U) Clear Clear [facility] [place] Work Phone: Urine color determinationon 10-17-2021 Color (U) Yellow Yellow [facility] [place] Work Phone: Urine glucose detectionon Glucose Ql (U) 250 mg/dl Normal [facility] [place] Work Phone: Urine leukocyte esterase det ection by dipstickon 10-17-2021 Leukocyte esterase Test strip Ql (U) Negative Negative [facility] [place] Work Phone: Urine pHon 10-17-2021 pH (U) 6.0 [pH] [facility] [place] Work Phone: Urine sediment bacteria coun t by microscopy (number/high power field)on 10-17-2021 Bacteria LM.HPF (Urine sed) [#/Area] 0 /[HPF] None Seen [facility] [place] Work Phone: Urine specific gravity measu rementon 10-17-2021 Specific gravity (U) [Rel density] 1.015 [facility] [place] Work Phone: Urobilinogen Auto test strip Ql (U)on 10-17-2021 Urobilinogen Ql (U) Normal mg/dl Normal [facility] Work Phone: UA DIP, URINE (POC)on 2021 BILIRUBIN UA (POCT) Negative Negative [facility] CLARITY UA (POCT) Clear [facility] COLOR UA (POCT) Dark yellow [facility] GLUCOSE UA (POCT) >=1000 Abnormal Negative mg/dL [facility] HEMOGLOBIN/BLOOD UA (POCT) Negative Negative [facility] KETONE UA (POCT) Negative Negative mg/dL [facility] LEUKOCYTES UA (POCT) Negative Negative [facility] NITRITE UA (POCT) Negative Negative [facility] PH UA (POCT) 6.0 4.5 - 8.0 [facility] Protein Ql (U) Negative Negative mg/dL [facility] SPECIFIC GRAVITY UA (POCT) 1.015 1.005 - 1.030 [facility] UROBILINOGEN UA (POCT) 0.2 E.U./dL Normal E.U./dL [facility] Basophil percentageon 2021 Bilirubin [Mass/Vol] 0.30 mg/dL 0.20-1.00 [facility] Work Phone: Comment on above: For patients on eltr ombopag therapy, use of Dimension [place] TBIL is not recommended. Chloride [Moles/Vol] 106 mmol/L 98-107 [facility] Work Phone: Cholesterol [Mass/Vol] 189 mg/dL <200 [facility] [place] Work Phone: Comment on above: <200 mg/dL Desirable 200-240 mg/dL Borderline >240 mg/dL High Risk Glucose [Mass/Vol] 143 mg/dL 74-106 [facility] Work Phone: Comment on above: Fasting Glucose resu lt greater than or equal to 126 mg/dL suggests DIABETES MELLITUS per A.D.A. criteria. Potassium [Moles/Vol] 4.0 mmol/L 3.5-5.1 [facility] Work Phone: Protein [Mass/Vol] 7.3 g/dL 6.4-8.2 [facility] Work Phone: Sodium [Moles/Vol] 137 mmol/L 136-145 [facility] Work Phone: Triglyceride [Mass/Vol] 89 mg/dL [facility] [place] Work Phone: Comment on above: The drugs N-Acetylcy steine and Metamizole may falsely depress this assay.Serum Triglycerides Reference Interval Normal <150 mg/dL Borderline high 150 - 199 mg/dL High 200 - 499 mg/dL Very High > or = 500 mg/dL Laboratory - Chemistry and C hemistry - challengeon 09-10-2021 ALP [Catalytic activity/Vol] 105 U/L 45-117 [facility] [place] Work Phone: ALT [Catalytic activity/Vol] 42 U/L 13-56 [facility] [place] Work Phone: CO2 [Moles/Vol] 22.0 mmol/L 21.0-32.0 [facility] [place] Work Phone: Free T4 [Mass/Vol] 1.24 ng/dL 0.76-1.46 [facility] Work Phone: Globulin (S) [Mass/Vol] 3.7 g/dL 2.2-4.2 [facility] [place] Work Phone: Urea nitrogen/Creatinine [Mass ratio] 10.6 mg/mg 10-20 [facility] [place] Work Phone: Laboratory - Hematology and Cell countson 09-10-2021 HbA1c (Bld) [Mass fraction] 7.1 % [facility] [place] Work Phone: No Panel Informationon 09-10 Estimated GFR (MDRD) Amer 119 mL/min >60 [facility] [place] Work Phone: Comment on above: GFR Calc Estimated GFR (MDRD) Non-Af Amer 98 mL/min >60 [facility] [place] Work Phone: Comment on above: Non- GFR Calc Thyroid Stimulating Hormone (TSH) 0.06 uIU/mL 0.358-3.74 [facility] [place] Work Phone: Vitamin D 25-Hydroxy 57.8 ng/mL [facility] Work Phone: Comment on above: Vitamin D 25(OH) Sta tus Range Deficiency <20 ng/mL (50nmol/L) Insufficiency 20 - 30 ng/mL (50 - 75 nmol/L) Sufficiency 30 - 100 ng/mL (75 - 250 nmol/L) Toxicity >100 ng/mL (>250 nmol/L) Urine Microalbumin/Creatini ne Ratio 23.6 mg/g CRE <30 [facility] [place] Work Phone: Serum or plasma albumin hood urement (mass/volume)on 09-10-2021 Albumin [Mass/Vol] 3.6 g/dL 3.2-5.0 [facility] Work Phone: Serum or plasma albumin/glob ulin mass ratioon 09-10-2021 Albumin/Globulin [Mass ratio] 1.0 {ratio} 0.9-2.4 [facility] [place] Work Phone: Serum or plasma calcium hood urement (mass/volume)on 09-10-2021 Calcium [Mass/Vol] 9.3 mg/dL 8.5-10.1 [facility] Work Phone: Serum or plasma cholesterol in HDL measurement (mass/volume)on 09-10-2021 Cholesterol in HDL [Mass/Vol] 85 mg/dL [facility] [place] Work Phone: Comment on above: The drugs N-Acetylcy steine and Metamizole may falsely depress this assay. Reference Range HDL <40 mg/dL Low HDL Cholesterol HDL >or= 60 mg/dL High HDL Cholesterol Serum or plasma cholesterol in VLDL measurement (mass/volume)on 09-10-2021 Cholesterol in VLDL [Mass/Vol] 18 mg/dL 5-40 [facility] [place] Work Phone: Serum or plasma creatinine m easurement (mass/volume)on 09-10-2021 Creatinine [Mass/Vol] 0.66 mg/dL 0.55-1.02 [facility] Work Phone: Comment on above: The validity of the calculated GFR & GFRAA in patients over 70 years has not been determined. Clinical correlation is essential. Serum or plasma low density lipoprotein (LDL) cholesterol measurement (mass/volume)on 09-10-2021 Cholesterol in LDL [Mass/Vol] 86 mg/dL 0-130 [facility] [place] Work Phone: Serum or plasma urea nitroge n measurement (mass/volume)on 09-10-2021 Urea nitrogen [Mass/Vol] 7 mg/dL 7-18 [facility] [place] Work Phone: Thin prep Papanicolaou smear with manual screeningon 09-10-2021 Thin prep Papanicolaou smear with manual screening 69 U/L 15-37 [facility] [place] Work Phone: Thin prep Papanicolaou smear with manual screening 9 5-15 [facility] [place] Work Phone: Thin prep Papanicolaou smear with manual screening 11.5 mg/L NO RANGE EST. [facility] [place] Work Phone: Urine creatinine measurement (mass/volume)on 09-10-2021 Creatinine (U) [Mass/Vol] 48.80 mg/dL NO RANGE EST. [facility] [place] Work Phone: CNNURSEon 09-24-2020 CNNURSE Nurse Visit (COVAMD) MAYI MATA ([id number]) 1965 F Date Time Provider Department 09/24/20 ELLEN FREGOSO, SHRUTHI SALAS During your visit today, we recorded the following information about you: Allergies As of Date: 09/24/2020 Noted Allergy Reaction CITALOPRAM 12/05/2007 6 - Diarrhea SERTRALINE 12/22/2007 6 - Diarrhea Date Reviewed: 08/28/2020 Reviewed by: Dinora Jane Ma - Fully Assessed Order(s):[employer] SARS-COV-2 VACCINE 2D DOSE APPT [[id number]] Order #: [id number] Prescriptions as of 09/24/2020 Sig: CYANOCOBALAMIN (VIT B-12) 1,0* Inject 1 mL subcutaneously on* ESTRADIOL (0.2 MG/GRAM) EMOLL* Insert fingertip amount vagin* FLUTICASONE 500 MCG-SALMETERO* Inhale 1 Puff as instructed t* LEVOTHYROXINE 112 MCG TABLET Take 1 tablet by mouth daily * LISINOPRIL 40 MG TABLET Take 1 tablet by mouth once d* LANSOPRAZOLE 30 MG CAPSULE,DE* TAKE NECESSARY ALBUTEROL SULFATE HFA 90 MCG/* Inhale 2 Puffs as instructed * CYANOCOBALAMIN (VIT B-12) 1,0* Take 1 tablet by mouth once d* COMPOUNDED PRESCRIPTION 3cc syringe and 25g 1 needle* METRONIDAZOLE 0.75 % TOPICAL * APPLY 1 APPLICATION TO AF* Patient not taking: Reported on 08/28/2020 CHOLECALCIFEROL (VITAMIN D3) * Take 1,000 Units by mouth onc* LOVASTATIN 40 MG TABLET Take 1 tablet by mouth twice * HYDROCHLOROTHIAZIDE 25 MG TAB* Take 1 tablet by mouth once d* INSULIN ASPART U-100 100 UNI* use as directed in insulin pu* BLOOD SUGAR DIAGNOSTIC STRIPS CHECK BLOOD SUGARS 8 TIMES DA* COMPOUNDED PRESCRIPTION Metronic Minimed Insulin Pump* LANCETS testing 8 times daily BD ULTRA FINE LANCETS use as directed ASPIRIN 81 MG TABLET Take one(1) tablet daily. VITAMIN C 500 MG TABLET Take one(1) tablet daily. Problem List As Of Date 09/24/2020 Noted Resolved Type 1 diabetes mellitus (HCC) [E10.9] Hypothyroidism [E03.9] 04/06/2005 PURE HYPERCHOLESTEROLEM [E78.00] 04/06/2005 Mild intermittent asthma, uncomplicated [J45.20]04/25/2007 B12 DEFIC ANEMIA NEC [D51.8] 04/25/2007 ACNE VULGARIS: Inflammatory Grade III//IV: low*04/25/2007 HEADACHE [R51] 04/25/2007 NEVUS CHEST/BACK///BENIGN TAMMY SKIN TRUNK [D23.5]04/25/2007 02/16/2017 NEVUS///BENIGN TAMMY SKIN FACE NEC [D23.30] 04/25/2007 02/16/2017 NEVI////BENIGN TAMMY SCALP/SKIN NECK [D23.4] 04/25/2007 02/16/2017 SCARS: Acne-related (chin) [L90.5] 04/25/2007 02/16/2017 SOLAR LENTIGINES///DYSCHROMIA OTHER [L81.9] 06/18/2008 02/16/2017 ACTINIC DAMAGE///CHR SOLAR SKIN DAMAGE NOS [L57*06/18/2008 02/16/2017 Dermatitis due to cosmetics [L25.0] 06/18/2008 02/16/2017 Contact dermatitis and other eczema, due to uns*06/18/2008 02/16/2017 Contact dermatitis and other eczema due to othe*06/18/2008 02/16/2017 Solar Lentigines [L81.4] 02/18/2010 02/16/2017 Postinflammatory skin changes [R23.8] 07/20/2012 02/16/2017 Epidermal cyst [L72.0] 07/20/2012 02/16/2017 Encounter Status:Open Normal [facility] Office Visit: [facility] of [facility] Diabeteson 09-22-2016 Fall risk assessment No [facility] Work Phone: Protein mass conc Done [facility] Work Phone: Protein mass conc yes [facility] Work Phone: Tobacco smoking status NHIS Never [facility] Work Phone: Tobacco smoking status WAIS Current every day smoker [facility] Work Phone: Office Visit: Transition of [facility] [place], operated by [facility] 07-01-2016 Protein mass conc Colonoscopy (procedure) [facility] Work Phone: Office Visit: Transition of [facility] [place] operated [facility] 03-11-2016 MG Breast screening Normal Bilateral [facility] Work Phone: Office Visit: Transition of [facility] [place] operated [facility] 02-14-2016 General categories Cyto stain Interp (Cervical or vaginal smear or scraping) Normal [facility] Work Phone: Vital Signs Date Time Vital Sign Value Performing Clinician Facility 12-03-2024 07:55-0400 Body height 162.[address] William Steinberg MD Work Phone: [facility] 12-03-2024 07:55-0400 Body mass index (BMI) [Ratio] 24.7 kg/m2 Dr. William Steinberg MD Work Phone: [facility] 12-03-2024 07:55-0400 Body weight 65.[address] William Steinberg MD Work Phone: [facility] 12-03-2024 07:55-0400 Diastolic blood pressure 75 mm[Hg] Dr. William Steinberg MD Work Phone: [facility] 12-03-2024 07:55-0400 Heart rate 94 /min Dr. William Steinberg MD Work Phone: [facility] 12-03-2024 07:55-0400 SaO2% (BldA) [Mass fraction] 98 % Dr. William Steinberg MD Work Phone: [facility] 12-03-2024 07:55-0400 Systolic blood pressure 112 mm[Hg] Dr. William Steinberg MD Work Phone: [facility] 10-11-2024 08:02-0400 Body height 162.6 cm Pacc 1 Work Phone: [facility] 10-11-2024 08:02-0400 Body mass index (BMI) [Ratio] 24.72 kg/m2 Pacc 1 Work Phone: [facility] 10-11-2024 08:02-0400 Body temperature 97.81 [degF] Pacc 1 Work Phone: [facility] 10-11-2024 08:02-0400 Body weight 65.32 kg Pacc 1 Work Phone: [facility] 10-11-2024 08:02-0400 Diastolic blood pressure 60 mm[Hg] Pacc 1 Work Phone: [facility] 10-11-2024 08:02-0400 Heart rate 96 /min Pacc 1 Work Phone: [facility] 10-11-2024 08:02-0400 Respiratory rate 12 /min Pacc 1 Work Phone: [facility] 10-11-2024 08:02-0400 SaO2% (BldA) [Mass fraction] 100 % Pacc 1 Work Phone: [facility] 10-11-2024 08:02-0400 Systolic blood pressure 98 mm[Hg] Pacc 1 Work Phone: [facility] 10-09-2024 15:57-0400 Body height 162.6 cm Peace Cuevas APRN.CNM Work Phone: [facility] 10-09-2024 15:57-0400 Body mass index (BMI) [Ratio] 24.72 kg/m2 Peace Cuevas CELL ROOM SUPERVISOR.CNM Work Phone: [facility] 10-09-2024 15:57-0400 Body weight 65.32 kg Peace Cuevas CELL ROOM SUPERVISOR.CNM Work Phone: [facility] 10-09-2024 15:57-0400 Diastolic blood pressure 68 mm[Hg] Peace Cuevas CELL ROOM SUPERVISOR.CNM Work Phone: [facility] 10-09-2024 15:57-0400 Systolic blood pressure 110 mm[Hg] Peace Mason CELL ROOM SUPERVISOR.CNM Work Phone: [facility] 09-18-2024 14:32-0400 Body height 162.6 cm William Steinberg MD Work Phone: [facility] 09-18-2024 14:32-0400 Body mass index (BMI) [Ratio] 25.06 kg/m2 William Steinberg MD Work Phone: [facility] 09-18-2024 14:32-0400 Body weight 66.22 kg William Steinberg MD Work Phone: [facility] 09-18-2024 14:32-0400 Diastolic blood pressure 60 mm[Hg] William Steinberg MD Work Phone: [facility] 09-18-2024 14:32-0400 Heart rate 98 /min William Steinberg MD Work Phone: [facility] 09-18-2024 14:32-0400 SaO2% (BldA) [Mass fraction] 98 % William Steinberg MD Work Phone: [facility] 09-18-2024 14:32-0400 Systolic blood pressure 98 mm[Hg] William Steinberg MD Work Phone: [facility] 07-19-2024 10:39-0500 Body mass index (BMI) [Ratio] 24.85 kg/m2 Rekha Opal CELL ROOM SUPERVISOR.POKER MANAGER Work Phone: [facility] 07-19-2024 10:39-0500 Body weight 65.68 kg Rekha [place] CELL ROOM SUPERVISOR.POKER MANAGER Work Phone: [facility] 07-19-2024 10:39-0500 Diastolic blood pressure 74 mm[Hg] Rekha [place] CELL ROOM SUPERVISOR.POKER MANAGER Work Phone: [facility] 07-19-2024 10:39-0500 Systolic blood pressure 128 mm[Hg] Rekha [place] CELL ROOM SUPERVISOR.POKER MANAGER Work Phone: [facility] 06-04-2024 07:35-0500 Body mass index (BMI) [Ratio] 25.69 kg/m2 Krislyn Aberegg PA Work Phone: [facility] 06-04-2024 07:35-0500 Body temperature 97.5 [degF] Krislyn Aberegg PA Work Phone: [facility] 06-04-2024 07:35-0500 Body weight 67.9 kg Krislyn Aberegg PA Work Phone: [facility] 06-04-2024 07:35-0500 Diastolic blood pressure 76 mm[Hg] Krislyn Aberegg PA Work Phone: [facility] 06-04-2024 07:35-0500 Heart rate 110 /min Krislyn Aberegg PA Work Phone: [facility] 06-04-2024 07:35-0500 Respiratory rate 16 /min Krislyn Aberegg PA Work Phone: [facility] 06-04-2024 07:35-0500 SaO2% (BldA) [Mass fraction] 100 % Krislyn Aberegg PA Work Phone: [facility] 06-04-2024 07:35-0500 Systolic blood pressure 122 mm[Hg] Krislyn Aberegg PA Work Phone: [facility] 03-05-2024 10:27-0400 Body mass index (BMI) [Ratio] 25.54 kg/m2 Junior Cadet CELL ROOM SUPERVISOR.POKER MANAGER Work Phone: [facility] 03-05-2024 10:27-0400 Body temperature 97.59 [degF] Junior Melloching CELL ROOM SUPERVISOR.POKER MANAGER Work Phone: [facility] 03-05-2024 10:27-0400 Body weight 67.5 kg Junior Melloching CELL ROOM SUPERVISOR.POKER MANAGER Work Phone: [facility] 03-05-2024 10:27-0400 Diastolic blood pressure 88 mm[Hg] Junior Cadet CELL ROOM SUPERVISOR.POKER MANAGER Work Phone: [facility] 03-05-2024 10:27-0400 Heart rate 100 /min Junior Melloching CELL ROOM SUPERVISOR.POKER MANAGER Work Phone: [facility] 03-05-2024 10:27-0400 Respiratory rate 19 /min Junior Melloching CELL ROOM SUPERVISOR.POKER MANAGER Work Phone: [facility] 03-05-2024 10:27-0400 SaO2% (BldA) [Mass fraction] 97 % Junior Melloching CELL ROOM SUPERVISOR.POKER MANAGER Work Phone: [facility] 03-05-2024 10:27-0400 Systolic blood pressure 130 mm[Hg] Junior Melloching CELL ROOM SUPERVISOR.POKER MANAGER Work Phone: [facility] 10-04-2023 10:03-0400 Body height 162.6 cm Peace Cuevas CELL ROOM SUPERVISOR.CNM Work Phone: [facility] 10-04-2023 10:03-0400 Body weight 74.12 kg Peace Cuevas CELL ROOM SUPERVISOR.CNM Work Phone: [facility] 10-04-2023 10:03-0400 Diastolic blood pressure 64 mm[Hg] Peace Cuevas CELL ROOM SUPERVISOR.CNM Work Phone: [facility] 10-04-2023 10:03-0400 Systolic blood pressure 108 mm[Hg] Peace Cuevas CELL ROOM SUPERVISOR.CNM Work Phone: [facility] 08-02-2023 08:31-0500 Body temperature 98.6 [degF] Kimberly Frost PA-C Work Phone: [facility] 08-02-2023 08:31-0500 Body weight 75.3 kg Kimberly Athy PA-C Work Phone: [facility] 08-02-2023 08:31-0500 Diastolic blood pressure 83 mm[Hg] Kimberly Athy PA-C Work Phone: [facility] 08-02-2023 08:31-0500 Heart rate 114 /min Kimberly Athy PA-C Work Phone: [facility] 08-02-2023 08:31-0500 Respiratory rate 16 /min Kimberly Athy PA-C Work Phone: [facility] 08-02-2023 08:31-0500 SaO2% (BldA) [Mass fraction] 100 % Kimberly Athy PA-C Work Phone: [facility] 08-02-2023 08:31-0500 Systolic blood pressure 131 mm[Hg] Kimberly Athy PA-C Work Phone: [facility] 02-21-2023 11:19-0400 Body height 162.6 cm William Steinberg MD Work Phone: [facility] 02-21-2023 11:19-0400 Body weight 75.84 kg William Steinberg MD Work Phone: [facility] 02-21-2023 11:19-0400 Diastolic blood pressure 78 mm[Hg] William Steinberg MD Work Phone: [facility] 02-21-2023 11:19-0400 Heart rate 103 /min William Steinberg MD Work Phone: [facility] 02-21-2023 11:19-0400 SaO2% (BldA) [Mass fraction] 98 % William Steinberg MD Work Phone: [facility] 02-21-2023 11:19-0400 Systolic blood pressure 136 mm[Hg] William Steinberg MD Work Phone: [facility] 02-14-2023 15:41-0400 Body weight 76.66 kg William Steinberg MD Work Phone: [facility] 02-14-2023 15:41-0400 Diastolic blood pressure 82 mm[Hg] William Steinberg MD Work Phone: [facility] 02-14-2023 15:41-0400 Heart rate 71 /min William Steinberg MD Work Phone: [facility] 02-14-2023 15:41-0400 SaO2% (BldA) [Mass fraction] 97 % William Steinberg MD Work Phone: [facility] 02-14-2023 15:41-0400 Systolic blood pressure 138 mm[Hg] William Steinberg MD Work Phone: [facility] 12-06-2022 07:56-0400 Body height 162.[address] William Steinberg Work Phone: [facility] 12-06-2022 07:56-0400 Body mass index (BMI) [Ratio] 26.4 kg/m2 Dr. William Steinberg Work Phone: [facility] 12-06-2022 07:56-0400 Body temperature 98.4 [degF] Dr. William Steinberg Work Phone: 4(970)541-761768 [place] [address] 12-06-2022 07:56-0400 Body weight 69.[address] William Steinberg Work Phone: [facility] 12-06-2022 07:56-0400 Diastolic blood pressure 87 mm[Hg] Dr. William Steinberg Work Phone: [facility] 12-06-2022 07:56-0400 Heart rate 100 /min Dr. William Steinberg Work Phone: [facility] 12-06-2022 07:56-0400 Respiratory rate 18 /min Dr. William Steinberg Work Phone: [facility] 12-06-2022 07:56-0400 SaO2% (BldA) [Mass fraction] 98 % Dr. William Steinberg Work Phone: [facility] 12-06-2022 07:56-0400 Systolic blood pressure 135 mm[Hg] Dr. William Steinberg Work Phone: [facility] 08-17-2022 08:13-0500 Body height 162.6 cm Carina Lange PA-C Work Phone: [facility] 08-17-2022 08:13-0500 Body temperature 98.71 [degF] Carina Lange PA-C Work Phone: [facility] 08-17-2022 08:13-0500 Body weight 68.95 kg Carina Lange PA-C Work Phone: [facility] 08-17-2022 08:13-0500 Diastolic blood pressure 82 mm[Hg] Carina Lange PA-C Work Phone: [facility] 08-17-2022 08:13-0500 Heart rate 70 /min Carina Lange PA-C Work Phone: [facility] 08-17-2022 08:13-0500 Respiratory rate 12 /min Carina Lange PA-C Work Phone: [facility] 08-17-2022 08:13-0500 SaO2% (BldA) [Mass fraction] 96 % Carina Lange PA-C Work Phone: [facility] 08-17-2022 08:13-0500 Systolic blood pressure 132 mm[Hg] Carina Lange PA-C Work Phone: [facility] 07-26-2022 08:28-0500 Body temperature 98.1 [degF] Dr. William Steinberg Work Phone: [facility] 07-26-2022 08:28-0500 Diastolic blood pressure 56 mm[Hg] Dr. William Steinberg Work Phone: [facility] 07-26-2022 08:28-0500 Heart rate 77 /min Dr. William Steinberg Work Phone: [facility] 07-26-2022 08:28-0500 Respiratory rate 16 /min Dr. William Steinberg Work Phone: [facility] 07-26-2022 08:28-0500 SaO2% (BldA) [Mass fraction] 99 % Dr. William Steinberg Work Phone: 1(153)966-078564 [place] [address] 07-26-2022 08:28-0500 Systolic blood pressure 100 mm[Hg] Dr. William Steinberg Work Phone: 2(982)188-539164 [place] [address] 07-26-2022 06:41-0500 Body height 162.[address] William Steinberg Work Phone: 9(783)439-053364 [place] [address] 07-26-2022 06:41-0500 Body mass index (BMI) [Ratio] 26 kg/m2 Dr. William Steinberg Work Phone: 5(145)905-343864 [place] [address] 07-26-2022 06:41-0500 Body weight 68.[address] William Steinberg Work Phone: 6(135)257-082864 [place] [address] 07-09-2022 08:36-0500 Body height 162.[address] William Steinberg Work Phone: 0(825)525-867064 [place] [address] 07-09-2022 08:36-0500 Body mass index (BMI) [Ratio] 26.2 kg/m2 Dr. William Steinberg Work Phone: 0(345)509-363864 [place] [address] 07-09-2022 08:36-0500 Body temperature 97.3 [degF] Dr. William Steinberg Work Phone: 2(037)304-511164 [place] [address] 07-09-2022 08:36-0500 Body weight 69.[address] William Steinberg Work Phone: 5(434)265-610564 [place] [address] 07-09-2022 08:36-0500 Diastolic blood pressure 88 mm[Hg] Dr. William Steinberg Work Phone: 9(069)696-406964 [place] [address] 07-09-2022 08:36-0500 Heart rate 54 /min Dr. William Steinberg Work Phone: 5(423)028-358564 [place] [address] 07-09-2022 08:36-0500 Respiratory rate 17 /min Dr. William Steinberg Work Phone: 8(696)304-975764 [place] [address] 07-09-2022 08:36-0500 SaO2% (BldA) [Mass fraction] 96 % Dr. William Steinberg Work Phone: 8(464)623-656668 [place] [address] 07-09-2022 08:36-0500 Systolic blood pressure 131 mm[Hg] Dr. William Steinberg Work Phone: 2(574)995-976164 [place] [address] 07-06-2022 08:30-0500 Body mass index (BMI) [Ratio] 26.4 kg/m2 Dr. William Steinberg Work Phone: 4(448)037-851064 [place] [address] 07-06-2022 08:30-0500 Body temperature 97.1 [degF] Dr. William Steinberg Work Phone: 2(425)438-220364 [place] [address] 07-06-2022 08:30-0500 Body weight 69.[address] William Steinberg Work Phone: 2(484)675-472064 [place] [address] 07-06-2022 08:30-0500 Diastolic blood pressure 81 mm[Hg] Dr. William Steinberg Work Phone: 5(450)685-442864 [place] [address] 07-06-2022 08:30-0500 Heart rate 110 /min Dr. William Steinberg Work Phone: 0(546)446-070764 [place] [address] 07-06-2022 08:30-0500 Respiratory rate 18 /min Dr. William Steinberg Work Phone: 6(034)308-651864 [place] [address] 07-06-2022 08:30-0500 SaO2% (BldA) [Mass fraction] 98 % Dr. William Steinberg Work Phone: 1(251)813-878168 [place] [address] 07-06-2022 08:30-0500 Systolic blood pressure 128 mm[Hg] Dr. William Steinberg Work Phone: 0(084)293-834564 [place] [address] 04-24-2022 08:27-0400 Body temperature 98.29 [degF] Aniyah Cleveland APRN.POKER MANAGER Work Phone: [facility] 04-24-2022 08:27-0400 Body weight 70.22 kg Aniyah Cleveland APRN.POKER MANAGER Work Phone: 4(516)418-109[address] [place] [address] 04-24-2022 08:27-0400 Diastolic blood pressure 82 mm[Hg] Aniyah Praisler-Wood CELL ROOM SUPERVISOR.POKER MANAGER Work Phone: [facility] 04-24-2022 08:27-0400 Heart rate 110 /min Aniyah Praisler-Wood CELL ROOM SUPERVISOR.POKER MANAGER Work Phone: [facility] 04-24-2022 08:27-0400 Respiratory rate 16 /min Aniyah Praisler-Wood CELL ROOM SUPERVISOR.POKER MANAGER Work Phone: [facility] 04-24-2022 08:27-0400 SaO2% (BldA) [Mass fraction] 96 % Aniyah Praisler-Wood CELL ROOM SUPERVISOR.POKER MANAGER Work Phone: [facility] 04-24-2022 08:27-0400 Systolic blood pressure 138 mm[Hg] Aniyah Praisler-Wood CELL ROOM SUPERVISOR.POKER MANAGER Work Phone: [facility] 02-23-2022 12:05-0400 Body temperature 97.8 [degF] Dr. William Steinberg Work Phone: [facility] Work Phone: 02-23-2022 12:05-0400 Diastolic blood pressure 75 mm[Hg] Dr. William Steinberg Work Phone: [facility] Work Phone: 02-23-2022 12:05-0400 Heart rate 85 /min Dr. William Steinberg Work Phone: [facility] Work Phone: 02-23-2022 12:05-0400 Respiratory rate 18 /min Dr. William Steinberg Work Phone: [facility] Work Phone: 02-23-2022 12:05-0400 SaO2% (BldA) [Mass fraction] 97 % Dr. William Steinberg Work Phone: [facility] Work Phone: 02-23-2022 12:05-0400 Systolic blood pressure 109 mm[Hg] Dr. William Steinberg Work Phone: [facility] Work Phone: 02-21-2022 19:25-0400 Body height 162.[address] William Steinberg Work Phone: [facility] Work Phone: 02-21-2022 19:25-0400 Body mass index (BMI) [Ratio] 27.4 kg/m2 Dr. William Steinberg Work Phone: [facility] Work Phone: 02-21-2022 19:25-0400 Body weight 72.[address] William Steinberg Work Phone: [facility] Work Phone: 02-21-2022 19:04-0400 Body temperature 98 [degF] Dr. William Steinberg Work Phone: [facility] Work Phone: 02-21-2022 19:04-0400 Diastolic blood pressure 78 mm[Hg] Dr. William Steinberg Work Phone: [facility] Work Phone: 02-21-2022 19:04-0400 Heart rate 90 /min Dr. William Steinberg Work Phone: [facility] Work Phone: 02-21-2022 19:04-0400 Respiratory rate 16 /min Dr. William Steinberg Work Phone: [facility] Work Phone: 02-21-2022 19:04-0400 SaO2% (BldA) [Mass fraction] 98 % Dr. William Steinberg Work Phone: [facility] Work Phone: 02-21-2022 19:04-0400 Systolic blood pressure 136 mm[Hg] Dr. William Steinberg Work Phone: [facility] Work Phone: 02-21-2022 17:00-0400 Body mass index (BMI) [Ratio] 27.1 kg/m2 Dr. William Steinberg Work Phone: [facility] Work Phone: 02-21-2022 17:00-0400 Body weight 71.[address] William Steinberg Work Phone: [facility] Work Phone: 02-11-2022 08:33-0400 Body mass index (BMI) [Ratio] 26.4 kg/m2 Dr. William Steinberg Work Phone: [facility] Work Phone: 02-11-2022 08:33-0400 Body temperature 97.2 [degF] Dr. William Steinberg Work Phone: [facility] Work Phone: 02-11-2022 08:33-0400 Body weight 69.[address] William Steinberg Work Phone: [facility] Work Phone: 02-11-2022 08:33-0400 Diastolic blood pressure 86 mm[Hg] Dr. William Steinberg Work Phone: [facility] Work Phone: 02-11-2022 08:33-0400 Heart rate 101 /min Dr. William Steinberg Work Phone: [facility] Work Phone: 02-11-2022 08:33-0400 Respiratory rate 18 /min Dr. William Steinberg Work Phone: [facility] Work Phone: 02-11-2022 08:33-0400 SaO2% (BldA) [Mass fraction] 98 % Dr. William Steinberg Work Phone: [facility] Work Phone: 02-11-2022 08:33-0400 Systolic blood pressure 144 mm[Hg] Dr. William Steinberg Work Phone: [facility] Work Phone: 10-18-2021 13:53-0400 Body temperature 98.7 [degF] Dr. William Steinberg Work Phone: [facility] Work Phone: 10-18-2021 13:53-0400 Diastolic blood pressure 73 mm[Hg] Dr. William Steinberg Work Phone: [facility] Work Phone: 10-18-2021 13:53-0400 Heart rate 89 /min Dr. William Steinberg Work Phone: [facility] Work Phone: 10-18-2021 13:53-0400 Respiratory rate 18 /min Dr. William Steinberg Work Phone: [facility] Work Phone: 10-18-2021 13:53-0400 SaO2% (BldA) [Mass fraction] 100 % Dr. William Steinberg Work Phone: [facility] Work Phone: 10-18-2021 13:53-0400 Systolic blood pressure 120 mm[Hg] Dr. William Steinberg Work Phone: [facility] Work Phone: 10-18-2021 09:49-0400 Body height 162.[address] William Steinberg Work Phone: [facility] Work Phone: 10-18-2021 09:49-0400 Body weight 73.[address] William Steinberg Work Phone: [facility] Work Phone: 10-17-2021 23:56-0400 Body mass index (BMI) [Ratio] 27.8 kg/m2 Dr. William Steinberg Work Phone: [facility] Work Phone: 10-17-2021 23:26-0400 Body temperature 97.5 [degF] Dr. William Steinberg Work Phone: [facility] Work Phone: 10-17-2021 23:26-0400 Diastolic blood pressure 67 mm[Hg] Dr. William Steinberg Work Phone: [facility] Work Phone: 10-17-2021 23:26-0400 Heart rate 94 /min Dr. William Steinberg Work Phone: [facility] Work Phone: 10-17-2021 23:26-0400 Respiratory rate 17 /min Dr. William Steinberg Work Phone: [facility] Work Phone: 10-17-2021 23:26-0400 SaO2% (BldA) [Mass fraction] 96 % Dr. William Steinberg Work Phone: [facility] Work Phone: 10-17-2021 23:26-0400 Systolic blood pressure 125 mm[Hg] Dr. William Steinberg Work Phone: [facility] Work Phone: 10-17-2021 20:28-0400 Body height 162.[address] William Steinberg Work Phone: [facility] Work Phone: 10-17-2021 20:28-0400 Body mass index (BMI) [Ratio] 25.7 kg/m2 Dr. William Steinberg Work Phone: [facility] Work Phone: 10-17-2021 20:28-0400 Body weight 68.[address] William Steinberg Work Phone: [facility] Work Phone: 09-15-2021 08:58-0400 Body height 162.6 cm Carina Lange PA-C Work Phone: [facility] 09-15-2021 08:58-0400 Body temperature 96.91 [degF] Carina Lange PA-C Work Phone: [facility] 09-15-2021 08:58-0400 Body weight 71.22 kg Carina Lange PA-C Work Phone: [facility] 09-15-2021 08:58-0400 Diastolic blood pressure 84 mm[Hg] Carina Lange PA-C Work Phone: [facility] 09-15-2021 08:58-0400 Heart rate 112 /min Carina Lange PA-C Work Phone: [facility] 09-15-2021 08:58-0400 Respiratory rate 16 /min Carina Lange PA-C Work Phone: [facility] 09-15-2021 08:58-0400 SaO2% (BldA) [Mass fraction] 100 % Carina Lange PA-C Work Phone: [facility] 09-15-2021 08:58-0400 Systolic blood pressure 134 mm[Hg] Carina Lange PA-C Work Phone: [facility] 09-10-2021 10:19-0400 Body mass index (BMI) [Ratio] 27 kg/m2 Dr. William Steinberg Work Phone: [facility] Work Phone: 09-10-2021 10:19-0400 Body temperature 97.4 [degF] Dr. William Steinberg Work Phone: [facility] Work Phone: 09-10-2021 10:19-0400 Body weight 71.[address] William Steinberg Work Phone: [facility] Work Phone: 09-10-2021 10:19-0400 Diastolic blood pressure 92 mm[Hg] Dr. William Steinberg Work Phone: [facility] Work Phone: 09-10-2021 10:19-0400 Heart rate 113 /min Dr. William Steinberg Work Phone: [facility] Work Phone: 09-10-2021 10:19-0400 Respiratory rate 20 /min Dr. William Steinberg Work Phone: [facility] Work Phone: 09-10-2021 10:19-0400 SaO2% (BldA) [Mass fraction] 98 % Dr. William Steinberg Work Phone: [facility] Work Phone: 09-10-2021 10:19-0400 Systolic blood pressure 160 mm[Hg] Dr. William Steinberg Work Phone: [facility] Work Phone: 07-13-2021 08:45-0500 Body temperature 97.6 [degF] Dr. William Steinberg Work Phone: [facility] Work Phone: 07-13-2021 08:45-0500 Diastolic blood pressure 62 mm[Hg] Dr. William Steinberg Work Phone: [facility] Work Phone: 07-13-2021 08:45-0500 Heart rate 81 /min Dr. William Steinberg Work Phone: [facility] Work Phone: 07-13-2021 08:45-0500 Respiratory rate 16 /min Dr. William Steinberg Work Phone: [facility] Work Phone: 07-13-2021 08:45-0500 SaO2% (BldA) [Mass fraction] 99 % Dr. William Steinberg Work Phone: [facility] Work Phone: 07-13-2021 08:45-0500 Systolic blood pressure 91 mm[Hg] Dr. William Steinberg Work Phone: [facility] Work Phone: 07-13-2021 06:10-0500 Body mass index (BMI) [Ratio] 27.2 kg/m2 Dr. William Steinberg Work Phone: [facility] Work Phone: 07-13-2021 06:10-0500 Body weight [address] William Steinberg Work Phone: [facility] Work Phone: 09-22-2016 16:33-0400 BMI (Body Mass Index) 26.5 kg/m2 Angela Mayoharish [facility] Work Phone: 09-22-2016 16:33-0400 Body Temperature 98.1 [degF] Angela Chi SOD STRIPPER [facility] Work Phone: 09-22-2016 16:33-0400 BP Diastolic 70 mm[Hg] Angela Chi SOD [facility] Work Phone: 09-22-2016 16:33-0400 BP Systolic 102 mm[Hg] Angela Chi SOD [facility] Work Phone: 09-22-2016 16:33-0400 BSA (Body Surface Area) 1.75 m2 Angela Chi SOD [facility] Work Phone: 09-22-2016 16:33-0400 Height 162.56 cm Angela Chi SOD [facility] Work Phone: 09-22-2016 16:33-0400 Pulse (Heart Rate) 94 /min Angela Chi SOD STR[facility]PER [facility] Work Phone: 09-22-2016 16:33-0400 Pulse Oximetry 97 % Angela Chi SOD [facility] Work Phone: 09-22-2016 16:33-0400 Respiratory Rate 16 /min Angela Mayoharish [facility] Work Phone: 09-22-2016 16:33-0400 Weight 70.04 kg Angela Chi SOD [facility] Work Phone: 09-22-2016 16:33-0400 Weight 70.03 kg Angela Mayoharish [facility] Work Phone: Encounters Encounter Date Encounter Type Care Provider Facility Start: 04-03-2025 ambulatory WILLIAM STEINBERG Facility :[facility] Start: 12-25-2024 End: 02-24-2025 Follow-up encounter Peace Cuevas APRN.CNM Work Phone: OB/Gynecology Start: 12-25-2024 ambulatory PEACE CUEVAS Facility: [facility] Start: 12-25-2024 End: 12-25-2024 Subsequent hospital visit by physician Diagnostic Mammo [facility] Comment on above: Abnormal mammogram [ R92.8] Start: 12-24-2024 End: 12-27-2024 ambulatory William Steinberg MD Work Phone: [facility] Comment on above: 3 ml syringes Start: 12-03-2024 End: 12-03-2024 Chart abstracting William Steinberg MD Work Phone: [facility] Start: 12-03-2024 End: 12-03-[address] Cristobal Engel MD [facility] Work Phone: Start: 12-03-2024 End: 12-03-[address] William Steinberg MD Work Phone: [facility] Work Phone: Start: 11-28-2024 End: 11-28-2024 Telephone encounter Peace Cuevas APRN.CNM Work Phone: Mammogram Comment on above: Orders Start: 11-17-2024 End: 11-20-2024 ambulatory William Steinberg MD Work Phone: [facility] Comment on above: Prescription Renewal Start: 11-13-2024 End: 11-20-2024 Telephone encounter Moe Wilils MD Work Phone: Mammography Comment on above: Mammogram Result Blaise l Back Start: 11-01-2024 End: 11-01-2024 Patient encounter procedure Mary Lou Hwang MD Work Phone: Otolaryngology Comment on above: Mass of right paroti d gland (Primary Dx) Start: 11-01-2024 End: 11-01-2024 ambulatory MARY LOU HWANG Facility:[facility] Start: 10-25-2024 End: 10-25-2024 ambulatory MARY LOU Naman JAIDEN Facility:[facility] Start: 10-22-2024 End: 12-22-2024 Follow-up encounter Peace Cuevas APRN.CNM Work Phone: OB/Gynecology Start: 10-18-2024 ambulatory PEACE CEUVAS Facility: [facility] Start: 10-11-2024 End: 10-11-2024 ambulatory MARY LOU JAIDEN Facility:[facility] Start: 10-11-2024 End: 10-11-2024 Admission to establishment [facility] Work Phone: Pre Anesthesia Start: 10-11-2024 End: 10-11-2024 Alcohol abuse prevention Pac [facility] Work Phone: Pre Anesthesia Comment on above: Pre-operative examin ation (Primary Dx); Pure hypercholesterolemia; Essential hypertension, benign; Mild intermittent asthma, uncomplicated (HCC); Type 1 diabetes mellitus without complication (HCC); Alcohol abuse; Anxiety and depression; Acquired hypothyroidism; Current smoker; Gastroesophageal reflux disease, unspecified whether esophagitis present Start: 10-11-2024 End: 10-11-2024 Preprocedural examination done Pac [facility] Work Phone: [facility] Start: 10-11-2024 End: 10-11-2024 ambulatory MARY LOU HWANG Facility:[facility] Start: 10-09-2024 End: 10-09-2024 ambulatory PEACE CUEVAS Facility:[facility] Start: 10-09-2024 End: 10-09-2024 Patient encounter procedure Peace Cuevas APRN.CNNegrita Work Phone: OB/Gynecology Comment on above: Encounter for gyneco logical examination with abnormal finding (Primary Dx); Encounter for screening mammogram for breast cancer; Dense breast tissue; Vaginal atrophy Start: 10-09-2024 End: 10-09-2024 Patient encounter status Peace Cuevas APRN.CNNegrita Work Phone: [facility] Start: 10-05-2024 End: 10-05-2024 Telephone encounter Mary Lou Hwang MD Work Phone: Otolaryngology Start: 10-04-2024 End: 10-04-2024 ambulatory Coleen Mclaughlin RN Work Phone: Otolaryngology Start: 10-04-2024 End: 10-04-2024 Telephone encounter Mary Lou Hwang MD Work Phone: Otolaryngology Start: 10-03-2024 End: 10-03-2024 ambulatory MARY LOU HWANG Facility:[facility] Start: 10-03-2024 End: 10-03-2024 Patient encounter procedure Mary Lou Hwang MD Work Phone: Otolaryngology Comment on above: Mass of right paroti d gland (Primary Dx) Start: 09-27-2024 End: 11-27-2024 Follow-up encounter William Steinberg MD Work Phone: Pulmonology [facility] Start: 09-26-2024 End: 09-26-2024 [facility] Start: 09-25-2024 End: 09-25-2024 [facility] Start: 09-25-2024 End: 09-25-2024 Patient encounter procedure Mary Lou Hwang MD Work Phone: Otolaryngology Comment on above: Mass of right paroti d gland Refill Request Start: 09-21-2024 End: 11-21-2024 Follow-up encounter William Steinberg MD Work Phone: [facility] Start: 09-21-2024 End: 09-21-2024 Telephone encounter William Steinberg MD Work Phone: [facility] Comment on above: Results Start: 09-21-2024 End: 09-21-2024 ambulatory WILLIAM STEINBERG Facility:[facility] Start: 09-21-2024 End: 09-21-2024 Subsequent hospital visit by physician [facility] ([facility]) Work Phone: Cat Scan Comment on above: Neck mass [R22.1] Start: 09-19-2024 End: 09-20-2024 Telephone encounter William Steinberg MD Work Phone: [facility] Comment on above: Results Start: 09-18-2024 End: 09-18-2024 ambulatory WILLIAM STEINBERG Facility:[facility] Start: 09-18-2024 End: 09-18-2024 Office outpatient visit 25 minutes William Steinberg MD Work Phone: [facility] Comment on above: Neck mass (Primary D x) Start: 07-22-2024 End: 07-23-2024 Refill William Steinberg MD Work Phone: [facility] Comment on above: Refill Request Start: 07-19-2024 End: 07-19-2024 ambulatory [facility] Facility:[facility] Start: 07-19-2024 End: 07-19-2024 Patient encounter procedure Rekha Farrell APRN.CNP Work Phone: OB/Gynecology Comment on above: Vaginal irritation ( Primary Dx) Start: 06-18-2024 End: 06-18-2024 Chart abstracting William Steinberg MD Work Phone: [facility] Start: 06-18-2024 End: 06-18-2024 ambulatory [facility] Facility:[facility] Start: 06-12-2024 End: 06-12-2024 ambulatory [facility] Facility:[facility] Start: 06-04-2024 End: 06-04-2024 ambulatory [facility] Facility:[facility] Start: 06-04-2024 End: 06-04-2024 Patient encounter procedure Jena MOREIRA Work Phone: [facility] Comment on above: Acute conjunctivitis of right eye, unspecified acute conjunctivitis type (Primary Dx) Start: 03-07-2024 End: 03-07-2024 Patient encounter procedure Dane Delcid DO Work Phone: [facility] Comment on above: Median nerve dysfunc tion, right (Primary Dx); Impingement of right ulnar nerve Start: 03-05-2024 End: 03-05-2024 Office outpatient visit 15 minutes Junior Cadet APRN.CNP Work Phone: [facility] Comment on above: Impingement of right ulnar nerve (Primary Dx) Start: 02-15-2024 End: 02-15-2024 Chart abstracting William Steinberg MD Work Phone: [facility] Start: 02-14-2024 End: 02-14-2024 ambulatory [facility] Facility:[facility] Start: 01-30-2024 ambulatory William Steinberg MD Work Phone: [facility] Comment on above: ADVAIR Start: 11-20-2023 Get Medical Advice William Steinberg MD Work Phone: [facility] Comment on above: 90 day refills Start: 10-07-2023 Documentation procedure Mammog quirino Coordinator [facility] Start: 10-07-2023 Letter encounter Mammography Coordinator [facility] Department Start: 10-06-2023 End: 10-06-2023 Patient encounter status Screen [facility] Start: 10-06-2023 End: 10-06-2023 Subsequent hospital visit by physician Screen Mammo [facility] Comment on above: Encounter for gyneco logical examination (general) (routine) without abnormal findings [Z01.419] Start: 10-04-2023 End: 10-04-2023 Patient encounter procedure Peace Cuevas APRN.CNM Work Phone: OB/Gynecology Comment on above: Encounter for gyneco logical examination (general) (routine) without abnormal findings (Primary Dx); Encounter for screening mammogram for breast cancer; Dense breast tissue; Vaginal atrophy; Hx of hysterectomy Start: 10-04-2023 End: 10-04-2023 Patient encounter status Peace Cuevas APRN.CNM Work Phone: [facility] Start: 10-03-2023 Refill William Steinberg MD Work Phone: [facility] Comment on above: Refill Request Start: 09-19-2023 Chart abstracting William Ramirez MD Work Phone: [facility] Start: 09-19-2023 End: 09-19-2023 ambulatory [facility] Work Phone: Start: 09-19-2023 End: 09-19-2023 Patient encounter procedure [facility] Work Phone: Start: 08-02-2023 End: 08-02-2023 Subsequent hospital visit by physician [facility] Work Phone: Radiology Comment on above: Rib injury [S29.9XXA ] Start: 08-02-2023 End: 08-02-2023 Patient encounter procedure Kimberly Frost PA-C Work Phone: [facility] Comment on above: Rib injury (Primary Dx) Start: 04-29-2023 ambulatory Gigturn PA-C Work Phone: Urology Comment on above: RX renewal for Esrad iol Start: 04-05-2023 ambulatory Gigturn PA-C Work Phone: Urology Comment on above: Yeast Infection Start: 03-24-2023 End: 03-24-2023 Subsequent hospital visit by physician [facility] Work Phone: Radiology Comment on above: Abnormal x-ray [R93. 89] Start: 03-01-2023 Telephone encounter William Steinberg MD Work Phone: [facility] Comment on above: Patient Question Start: 02-21-2023 End: 02-21-2023 Patient encounter procedure William Steinberg MD Work Phone: [facility] Comment on above: Type 1 diabetes martin itus without complication (HCC) (Primary Dx); Acquired hypothyroidism; Hyponatremia; Abnormal x-ray; Pure hypercholesterolemia; Elevated liver enzymes Start: 02-15-2023 Telephone encounter William Steinberg MD Work Phone: [facility] Comment on above: Results Start: 02-14-2023 End: 02-14-2023 Subsequent hospital visit by physician X[facility] Work Phone: Radiology Comment on above: Subacute cough [R05. 2] Start: 02-14-2023 End: 02-14-2023 Patient encounter procedure William Steinberg MD Work Phone: [facility] Comment on above: Subacute cough (Prim yvette Dx); Fatigue, unspecified type; Mild intermittent asthma, uncomplicated; Type 1 diabetes mellitus without complication (HCC); Acquired hypothyroidism; Weight gain Start: 12-06-2022 End: 12-06-[address] William Steinberg Work Phone: [facility] Start: 12-03-2022 End: 12-03-[address] William Steinberg Work Phone: [facility] Work Phone: Start: 12-03-2022 End: 12-03-[address] William Steinberg Work Phone: [facility] Start: 09-29-2022 Telephone encounter Carina diaz PA-C Work Phone: Urology Comment on above: Results; Orders Start: 09-24-2022 Telephone encounter Carina diaz PA-C Work Phone: Urology Comment on above: Results; Orders Start: 09-07-2022 Refill William Steinberg MD Work Phone: [facility] Comment on above: Refill Request Start: 09-02-2022 End: 09-02-[address] William Steinberg Work Phone: [facility] Work Phone: Start: 09-02-2022 End: 09-02-[address] William Steinberg Work Phone: [facility] Start: 08-23-2022 Telephone encounter Carina diaz PA-C Work Phone: Urology Comment on above: Results; Orders Start: 08-17-2022 End: 08-17-2022 Patient encounter procedure Carina Lange PA-C Work Phone: Urology Comment on above: Atrophic vaginitis ( Primary Dx) Start: 08-11-2022 Refill William Steinberg MD Work Phone: [facility] Comment on above: Refill Request Start: 08-03-2022 Refill Carina Lange PA-C Work Phone: Urology Comment on above: Refill Request Start: 07-26-2022 Non-patient / Non-visit Dr. Kwasi Steinberg Work Phone: [facility] Start: 07-26-2022 End: 07-26-2022 Admission to same day surgery center Dr. William Steinberg Work Phone: [facility] Start: 07-26-2022 End: 07-26-[address] William Steinberg Work Phone: [facility] Work Phone: Start: 07-09-2022 End: 07-09-[address] William Steinberg Work Phone: [facility] Start: 07-06-2022 Chart abstracting William Ramirez MD Work Phone: [facility] Start: 07-06-2022 End: 07-06-[address] William Steinberg Work Phone: [facility] Work Phone: Start: 07-06-2022 End: 07-06-[address] William Steinberg Work Phone: [facility] Start: 05-18-2022 Telephone encounter Carina diaz PA-C Work Phone: Urology Comment on above: Medication Request ( Pyridium refill) Start: 05-10-2022 Telephone encounter Carina diaz PA-C Work Phone: Urology Comment on above: Patient Update Start: 04-26-2022 Telephone encounter Kimberly paige PA-C Work Phone: [facility] Comment on above: Results Start: 04-24-2022 End: 04-24-2022 Patient encounter procedure Aniyah Cristofer ESPINOSA Work Phone: [facility] Comment on above: Pain with urination (Primary Dx) Start: 02-23-2022 Non-patient / Non-visit Dr. Kwasi Steinberg Work Phone: [facility] Start: 02-22-2022 Non-patient / Non-visit Dr. Kwasi Steinberg Work Phone: [facility] Start: 02-21-2022 End: 02-23-2022 Evaluation and management of inpatient [facility]. William Steinberg [facility] Start: 02-17-2022 Chart abstracting William Ramirez MD Work Phone: [facility] Start: 02-11-2022 End: 02-11-[address] William Steinberg Work Phone: [facility] Start: 01-14-2022 ambulatory William Steinberg MD Work Phone: [facility] Comment on above: B12 shots Start: 12-21-2021 Telephone encounter William Steinberg MD Work Phone: [facility] Comment on above: Patient Question Start: 12-15-2021 End: 12-15-2021 ambulatory William Steinberg MD Work Phone: [facility] Comment on above: Type 1 diabetes martin itus without complication (HCC) (Primary Dx); Acquired hypothyroidism; ETOH abuse; Anxiety with depression Start: 12-15-2021 End: 12-15-2021 Telemedicine consultation with patient William Steinberg MD Work Phone: [facility] Start: 10-23-2021 Telephone encounter William Steinberg MD Work Phone: [facility] Comment on above: Patient Update; FYI- No Action Needed Start: 10-20-2021 End: 10-20-2021 ambulatory William Steinberg MD Work Phone: [facility] Comment on above: Diabetic ketoacidosi s without coma associated with type 1 diabetes mellitus (HCC) (Primary Dx); Acquired hypothyroidism; Anxiety with depression Start: 10-20-2021 End: 10-20-2021 Telemedicine consultation with patient William Steinberg MD Work Phone: [facility] Start: 10-19-2021 ambulatory William Steinberg MD Work Phone: [facility] Comment on above: Allergies to RX Start: 10-18-2021 Non-patient / Non-visit Dr. Kwasi Steinberg Work Phone: [facility] Start: 10-17-2021 Non-patient / Non-visit Dr. Kwasi Steinberg Work Phone: [facility] Start: 10-17-2021 End: 10-18-2021 Evaluation and management of inpatient Dr. William Steinberg Work Phone: [facility] Start: 09-15-2021 End: 09-15-2021 Patient encounter procedure Carina Lange PA-C Work Phone: Urology Comment on above: Atrophic vaginitis ( Primary Dx); Glycosuria Start: 09-10-2021 End: 09-10-[address] William Steinberg Work Phone: [facility] Start: 08-07-2021 End: 08-07-[address] William Steinberg Work Phone: [facility] Start: 07-13-2021 Non-patient / Non-visit Dr. Kwasi Steinberg Work Phone: [facility] Start: 07-13-2021 End: 07-13-2021 Admission to same day surgery center Dr. William Steinberg Work Phone: [facility] Procedures Date Procedure Procedure Detail Performing Clinician Start: 12-25-2024 Us breast uni real t fabrice with image limited Peace Cuevas JARRELL.CNM Work Phone: Start: 12-25-2024 Digital breast tomosynthesis unilateral Peace Mason VIEYRA.CNM Work Phone: Start: 12-03-2024 Hemoglobin A1c/Hemoglobin.total in Blood [facility] Start: 09-21-2024 Ct soft tissue neck w/contrast material William Steinberg MD Work Phone: Start: 06-18-2024 Lipid panel [facility] Provid er Start: 02-14-2024 Hemoglobin A1c/Hemoglobin.total in Blood [facility] Start: 09-19-2023 MICROALBUMIN/CREATIN INE UR W RATIO (EXTERNAL) [facility] Provider Start: 08-02-2023 Radex ribs uni w/posteroant ch minimum 3 views Kimberly Frost PA-C Work Phone: Start: 03-24-2023 Radiologic exam ches t 2 views William Steinberg MD Work Phone: Start: 02-14-2023 Radiologic exam ches t 2 views William Steinberg MD Work Phone: Start: 09-02-2022 End: 09-02-2022 Mammography William Steinberg MD Work Phone: Start: 08-17-2022 Urnls dip stick/tabl et rgnt auto w/o microscopy Carina Lange PA-C Work Phone: Start: 07-26-2022 End: 07-26-[address] William Steinberg Work Phone: Start: 07-06-2022 Lipid panel [facility] Provid er Start: 04-24-2022 Urnls dip stick/tabl et rgnt auto w/o microscopy Kimberly Frost PA-C Work Phone: Start: 02-11-2022 Hemoglobin A1c/Hemoglobin.total in Blood [facility] Provider Start: 09-15-2021 Urnls dip stick/tabl et rgnt auto w/o microscopy Carina Lange PA-C Work Phone: Start: 08-07-2021 End: 08-07-2021 Mammography Carina Lange PA-C Work Phone: Start: 01-13-2020 Adult depression scr eening assessment Carina Lange PA-C Work Phone: Start: 07-24-2018 Colonoscopy Carina diaz PA-C Work Phone: H/O: hysterectomy S/P hysterectomy Dr. Kwasi Steinberg Work Phone: Comment on above: 04/02 H/O: hysterectomy Hx of hysterectomy Petty Cuevas APRN.CNM Work Phone: H/O: surgery S/P oophorectomy Dr. William Steinberg Work Phone: Comment on above: Right 04/02 History of appendectomy S/P appendectomy Dr. William Steinberg Work Phone: Plan of Treatment Date Care Activity Detail Author Start: 12-11-2025 Glaucoma screening Dilated Retinal Exam [facility] Start: 10-18-2025 Screening for malignant neoplasm of breast Mammogram Screening [facility] Start: 10-11-2025 BP Controlled (<130/80) BP Controlled (<130/80) [facility] in Start: 10-09-2025 End: 10-09-2025 Patient encounter procedure 10/09/2025 4:00 PM EDT Office Visit OB/Gynecology [address] [place], [place] [id number] Peace Cuevas APRN.CNM [address] [place] [address] Annual OB/Gynecology Comment on above: Annual Start: 09-27-2025 Screening for malignant neoplasm of colon Fecal Occult Blood [facility] Start: 09-18-2025 Annual PCP Team Chronic Disease Visit Annual PCP Team Chronic Disease Visit [facility] Start: 07-26-2025 Colonoscopy Colonoscopy [facility] Start: 07-26-2025 Colorectal Cancer Screening Colorectal Cancer Screening [facility] Start: 07-26-2025 Screening for malignant neoplasm of colon [facility] Start: 06-18-2025 Hepatitis B surface antibody level LDL Cholesterol [facility] Start: 06-04-2025 Hemoglobin A1c measurement HbA1C [facility] Start: 04-03-2025 End: 04-03-2025 Patient encounter procedure 04/03/2025 8:30 AM EDT Appointment Radiology [address] [place] [address] 3 month follow up Radiology Comment on above: 3 month follow up Start: 02-25-2025 Influenza vaccination [facility] Start: 02-04-2025 End: 02-04-2025 Patient encounter procedure 02/04/2025 7:55 AM EDT Office Visit Otolaryngology [id number] [place] [address] [place] [address] [place] [address] 3 month follow up Otolaryngology Comment on above: 3 month follow up Start: 12-25-2024 End: 12-25-2024 Patient encounter procedure Mammogram Comment on above: SAUNDRA DIAGNOSTIC BILATERAL AND RIGHT ULTRA SOUND CALL BACK PH NOTE FOR RT DIAG MAMM ORDER/ COMP CB RT needs u/s schedule C OMP CB RT COMP CB RT Abnormal mammogram [ R92.8] Start: 11-28-2024 Glaucoma screening Dilated Retinal Exam [facility] Start: 11-01-2024 End: 11-01-2024 Patient encounter procedure 11/01/2024 9:30 AM EDT Office Visit Otolaryngology [address] [place] [address] [place] [address] [place] [address] Post op Otolaryngology Comment on above: Post op Start: 10-29-2024 End: 10-29-2024 Patient encounter procedure 10/29/2024 3:40 PM EDT Office Visit [facility] [address] [place], [place] [id number] Karmen Tee, CELL ROOM SUPERVISOR.POKER MANAGER [address] [place], [place] [id number] physical [facility] Comment on above: physical Start: 10-25-2024 End: 10-25-2024 Admission to same day surgery center 10/25/2024 7:30 AM EDT - 10/25/2024 10:40 AM EDT Surgery [facility] Operating Room [id number] [place] [address] [place] [address] [place] [address] PAROTIDECTOMY [facility] Operating Room Comment on above: PAROTIDECTOMY Start: 10-25-2024 End: 10-25-2024 Exc prtd erin/prtd glnd lat dsj&prsrv facial nr PAROTIDECTOMY Parotid mass 10/25/2024 7:30 AM EDT [facility] Start: 10-25-2024 Subsequent hospital visit by physician [facility] Operating Room Comment on above: Parotid mass [K11.8] Start: 10-18-2024 End: 10-18-2024 Patient encounter procedure 10/18/2024 2:50 PM EDT Appointment Mammogram [address] [place], [place] [id number] : Encounter for screening mammogram for breast cancer [Z12.31]; Dense breast tissue [R92.30] Mammogram Comment on above: : Encounter for screening mammogram for breast cancer [Z12.31]; Dense breast tissue [R92.30] Start: 10-18-2024 End: 01-17-2025 aPTT in Platelet poor plasma by Coagulation assay ACTIVATED PARTIAL THROMBOPLASTIN TIME Lab Routine Parotid mass Expected: 10/18/2024 (Approximate), Expires: 01/17/2025 [facility] Comment on above: Expected: 10/18/2024 (Approximate), Expi res: 01/17/2025 Start: 10-18-2024 End: 01-17-2025 CBC panel - Blood by Automated count COMPLETE BLOOD COUNT Lab Routine Parotid mass Expected: 10/18/2024 (Approximate), Expires: 01/17/2025 [facility] Work Phone: Comment on above: Expected: 10/18/2024 (Approximate), Expi res: 01/17/2025 Start: 10-18-2024 End: 01-17-2025 PT panel - Platelet poor plasma by Coagulation assay PROTHROMBIN TIME Lab Routine Parotid mass Expected: 10/18/2024 (Approximate), Expires: 01/17/2025 [facility] Comment on above: Expected: 10/18/2024 (Approximate), Expi res: 01/17/2025 Start: 10-11-2024 End: 10-11-2024 Anesthesia consultation 10/11/2024 8:00 AM EDT PAT Pre Anesthesia [address] [place] [address] 1, Pacc [place] [address] [facility] [place] [address] 10/25 DECLINED VV Pre Anesthesia Comment on above: 10/25 DECLINED VV Start: 10-09-2024 End: 10-09-2024 Patient encounter procedure OB/Gynecology Comment on above: ANNUAL LVM OF R/S 10/04/2024 APPOINTMENT ANNUAL Start: 10-05-2024 Screening for malignant neoplasm of breast Mammogram Screening [facility] Start: 10-04-2024 End: 10-04-2024 Patient encounter procedure 10/04/2024 4:00 PM EDT Office Visit OB/Gynecology [address] [place] [address] Peace Cuevas APRN.CNM [address] [place] [address] ANNUAL OB/Gynecology Comment on above: ANNUAL Start: 10-03-2024 End: 10-03-2024 Patient encounter procedure 10/03/2024 5:20 PM EDT Office Visit Otolaryngology [address] [place] [address] [place] [address] [place] [address] [address] to add per Dr[address] Hwang Otolaryngology Comment on above: ok to add per Dr. Hwang Start: 09-25-2024 End: 09-25-2024 Patient encounter procedure 09/25/2024 7:30 AM EDT Office Visit Otolaryngology [address] [place] [address] [place] [address] [place] [address] Mass of right parotid gland [K11.8] Otolaryngology Comment on above: Mass of right parotid gland [K11.8] Start: 09-21-2024 End: 09-21-2024 Patient encounter procedure 09/21/2024 8:40 AM EDT Appointment Cat Scan [address] [place] [address] Neck mass [R22.1] Cat Scan Comment on above: Neck mass [R22.1] Start: 09-19-2024 End: 09-19-2025 CBC W Auto Differential panel - Blood COMPLETE BLOOD COUNT AND DIFFERENTIAL Lab Routine Anemia, unspecified type Expected: 09/19/2024, Expires: 09/19/2025 [facility] Work Phone: Comment on above: Expected: 09/19/2024, Expires: Start: 09-19-2024 End: 09-19-2025 Cobalamin (Vitamin B12) [Mass/volume] in Serum or Plasma VITAMIN B12 Lab Routine Anemia, unspecified type Expected: 09/19/2024, Expires: 09/19/2025 [facility] Comment on above: Expected: 09/19/2024, Expires: Start: 09-19-2024 End: 09-19-2025 Ferritin [Mass/volume] in Serum or Plasma FERRITIN Lab Routine Anemia, unspecified type Expected: 09/19/2024, Expires: 09/19/2025 [facility] Comment on above: Expected: 09/19/2024, Expires: Start: 09-19-2024 End: 09-19-2025 Folate [Mass/volume] in Serum or Plasma FOLATE, SERUM Lab Routine Anemia, unspecified type Expected: 09/19/2024, Expires: 09/19/2025 [facility] Comment on above: Expected: 09/19/2024, Expires: Start: 09-19-2024 End: 09-19-2025 Hemoglobin.gastrointesti nal.lower [Presence] in Stool by Immunoassay IMMUNOCHEMICAL FECAL OCCULT BLOOD TEST Lab Routine Anemia, unspecified type Expected: 09/19/2024, Expires: 09/19/2025 [facility] Comment on above: Expected: 09/19/2024, Expires: Start: 09-19-2024 End: 09-19-2025 Iron and Iron binding capacity panel - Serum or Plasma IRON AND TIBC Lab Routine Anemia, unspecified type Expected: 09/19/2024, Expires: 09/19/2025 [facility] Comment on above: Expected: 09/19/2024, Expires: Start: 09-18-2024 End: 12-18-2024 Basic metabolic 2000 panel - Serum or Plasma [facility] Comment on above: Expected: 09/18/2024, Expires: Start: 09-18-2024 End: 12-18-2024 Erythrocyte sedimentation rate [facility] Comment on above: Expected: 09/18/2024, Expires: Start: 09-18-2024 Hepatitis B screening Urine Albumin:Creatinine Ratio [facility] Start: 09-18-2024 Hepatitis B surface antibody level LDL Cholesterol [facility] Start: 08-16-2024 Hemoglobin A1c measurement HbA1C [facility] Start: 03-24-2024 Annual PCP Team Chronic Disease Visit Annual PCP Team Chronic Disease Visit [facility] Start: 03-24-2024 Covid-19 Vaccine () Covid-19 Vaccine () [facility] Comment on above: Postponed from 02/25/2023 (Declined at t his time) Start: 03-24-2024 HIV Screening HIV Screening [facility] Comment on above: Postponed from 02/05/1982 (Declined at t his time) Start: 03-24-2024 HIV screening HIV Screening [facility] Comment on above: Postponed from 02/05/1982 (Declined at t his time) Start: 03-24-2024 Urine microalbumin profile DTaP,Tdap,Td Vaccine (1 - Tdap) [facility] Comment on above: Postponed from 02/05/1983 (Declined at t his time) Start: 03-07-2024 End: 03-07-2024 Patient encounter procedure 03/07/2024 1:00 PM EDT Office Visit [facility] [address] [place], [place] [phone] Dane Delcid V, DO [address] [place], [place] [id number] follow up [facility] Comment on above: follow up Start: 02-26-2024 Influenza vaccination [facility] Vacc[facility] Start: 02-22-2024 ANNUAL PCP TEAM CHRONIC DISEASE VISIT ANNUAL PCP TEAM CHRONIC DISEASE VISIT [facility] Start: 02-15-2024 ANNUAL PCP TEAM CHRONIC DISEASE VISIT ANNUAL PCP TEAM CHRONIC DISEASE VISIT [facility] Start: 2024 RSV Vaccine (1 - 1-dose 60+ series) RSV Vaccine (1 - 1-dose 60+ series) [facility] Start: 2024 RSV Vaccine (1 - Risk 60-74 years 1-dose series) RSV Vaccine (1 - Risk 60-74 years 1-dose series) [facility] Start: 11-16-2023 Glaucoma screening Dilated Retinal Exam [facility] Start: 11-16-2023 Hepatitis C antibody, confirmatory test DILATED RETINAL EXAM [facility] Start: 09-03-2023 Mammography [facility] Start: 09-03-2023 Screening for malignant neoplasm of breast Mammogram Screening [facility] Start: 07-28-2023 3 comp foot exam completed Diabetic Foot Exam [facility] Start: 07-28-2023 Diabetic foot examination Diabetic Foot Exam [facility] Start: 07-28-2023 Hepatitis B screening Urine Albumin:Creatinine Ratio [facility] Start: 07-06-2023 Hepatitis B surface antibody level LDL CHOLESTEROL [facility] Start: 06-27-2023 Behavioral Health Screening Behavioral Health Screening [facility] Start: 06-27-2023 Depression Assessment Depression Assessment [facility] Start: 04-05-2023 End: 06-05-2023 Bacteria identified in Urine by Culture [facility] Work Phone: Comment on above: Expected: 04/05/2023 (Approximate), Expi res: 06/05/2023 Start: 03-05-2023 Hemoglobin A1c measurement HbA1C [facility] Start: 03-05-2023 Hemoglobin A1c/Hemoglobin.total in Blood HBA1C [facility] Start: 02-25-2023 Influenza vaccination INFLUENZA (#1) [facility] Start: 02-21-2023 End: 04-23-2023 Basic metabolic 2000 panel - Serum or Plasma BASIC METABOLIC PNL Lab Routine Hyponatremia Expected: 02/21/2023, Expires: 04/23/2023 [facility] Work Phone: Comment on above: Expected: 02/21/2023, Expires: 3 Start: 02-21-2023 End: 04-23-2023 Hepatic function 2000 panel - Serum or Plasma HEPATIC FUNCTION PNL Lab Routine Elevated liver enzymes Expected: 02/21/2023, Expires: 04/23/2023 [facility] Work Phone: Comment on above: Expected: 02/21/2023, Expires: 3 Start: 02-21-2023 End: 04-23-2023 T4/FTI/T4U T4/FTI/T4U Lab Routine Acquired hypothyroidism Expected: 02/21/2023, Expires: 04/23/2023 [facility] Work Phone: Comment on above: Expected: 02/21/2023, Expires: Start: 02-21-2023 End: 04-23-2023 Thyrotropin [Units/volume] in Serum or Plasma TSH BLD Lab Routine Acquired hypothyroidism Expected: 02/21/2023, Expires: 04/23/2023 [facility] Work Phone: Comment on above: Expected: 02/21/2023, Expires: 3 Start: 02-15-2023 End: 04-17-2023 Basic metabolic 2000 panel - Serum or Plasma BASIC METABOLIC PNL Lab Routine Hyponatremia Expected: 02/15/2023, Expires: 04/17/2023 [facility] Work Phone: Comment on above: Expected: 02/15/2023, Expires: 3 Start: 02-14-2023 End: 04-16-2023 Comprehensive metabolic 2000 panel - Serum or Plasma [facility] Work Phone: Comment on above: Expected: 02/14/2023, Expires: 3 Start: 02-14-2023 End: 04-16-2023 Natriuretic peptide.B prohormone N-Terminal [Mass/volume] in Serum or Plasma [facility] Work Phone: Comment on above: Expected: 02/14/2023, Expires: 3 Start: 02-14-2023 End: 04-16-2023 T4/FTI/T4U [facility] Work Phone: Comment on above: Expected: 02/14/2023, Expires: 3 Start: 02-14-2023 End: 04-16-2023 Thyrotropin [Units/volume] in Serum or Plasma [facility] Work Phone: Comment on above: Expected: 02/14/2023, Expires: 3 Start: 12-15-2022 ANNUAL PCP TEAM CHRONIC DISEASE VISIT ANNUAL PCP TEAM CHRONIC DISEASE VISIT [facility] Start: 10-20-2022 ANNUAL PCP TEAM CHRONIC DISEASE VISIT ANNUAL PCP TEAM CHRONIC DISEASE VISIT [facility] Start: 10-08-2022 End: 12-08-2022 Bacteria identified in Urine by Culture URINE CULTURE Microbiology Routine Acute cystitis without hematuria Expected: 10/08/2022 (Approximate), Expires: 12/08/2022 [facility] Work Phone: Comment on above: Expected: 10/08/2022 (Approximate), Expi res: 12/08/2022 Start: 09-06-2022 End: 11-06-2022 Bacteria identified in Urine by Culture URINE CULTURE Microbiology Routine Acute cystitis without hematuria Expected: 09/06/2022 (Approximate), Expires: 11/06/2022 [facility] Work Phone: Comment on above: Expected: 09/06/2022 (Approximate), Expi res: 11/06/2022 Start: 08-14-2022 Hemoglobin A1c/Hemoglobin.total in Blood HBA1C [facility] [facility] Start: 08-07-2022 Mammography MAMMOGRAM [facility] Start: 07-26-2022 Colonoscopy w/biopsy single/multiple COLONOSCOPY AND BIOPSY [facility] Start: 07-26-2022 Patient discharge [facility] Start: 06-27-2022 DEPRESSION ASSESSMENT DEPRESSION ASSESSMENT [facility] Start: 05-11-2022 End: 07-11-2022 Bacteria identified in Urine by Culture URINE CULTURE Microbiology Routine Dysuria Expected: 05/11/2022 (Approximate), Expires: 07/11/2022 [facility] Work Phone: Comment on above: Expected: 05/11/2022 (Approximate), Expi res: 07/11/2022 Start: 02-25-2022 Influenza vaccination INFLUENZA (#1) [facility] Start: 02-23-2022 Patient discharge [facility] Work Phone: Start: 02-22-2022 [facility] Work Phone: Start: 02-22-2022 [facility] Work Phone: Start: 02-22-2022 Inhalation therapy procedure [facility] Work Phone: Start: 02-21-2022 Following clinical pathway protocol [facility] Work Phone: Start: 02-21-2022 Assessment of risk of venous thromboembolism [facility] Work Phone: Start: 02-21-2022 Care regimes management [facility] Work Phone: Start: 02-21-2022 Insertion of catheter into peripheral vein [facility] Work Phone: Start: 02-21-2022 Providing care according to standard [facility] Work Phone: Start: 02-21-2022 Magnesium [Mass/volume] in Serum or Plasma [facility] Work Phone: Start: 02-21-2022 End: 02-21-2022 [facility] Work Phone: Start: 02-21-2022 Verification routine [facility] Work Phone: Start: 02-21-2022 Admission procedure [facility] Work Phone: Start: 02-10-2022 Hepatitis C antibody, confirmatory test DILATED RETINAL EXAM [facility] Start: 08-28-2021 ANNUAL PCP TEAM CHRONIC DISEASE VISIT ANNUAL PCP TEAM CHRONIC DISEASE VISIT [facility] Start: 08-26-2021 Hepatitis B screening URINE ALBUMIN:CREATININE RATIO [facility] Start: 08-26-2021 Hepatitis B surface antibody level LDL CHOLESTEROL [facility] Start: 07-24-2021 Colonoscopy COLONOSCOPY [facility] Start: 07-24-2021 COLORECTAL CANCER SCREENING COLORECTAL CANCER SCREENING [facility] Start: 07-13-2021 Colonoscopy w/biopsy single/multiple COLONOSCOPY AND BIOPSY [facility] Work Phone: Start: 07-13-2021 Colsc flx w/rmvl of tumor polyp lesion snare tq COLONOSCOPY W/LESION REMOVAL [facility] Work Phone: Start: 06-27-2021 DEPRESSION ASSESSMENT DEPRESSION ASSESSMENT [facility] Start: 06-20-2021 COVID-19 VACCINE (5 - Booster) COVID-19 VACCINE (5 - Booster) [facility] Start: 06-20-2021 COVID-19 VACCINE (5 - Pfizer series) COVID-19 VACCINE (5 - Pfizer series) [facility] Start: 02-26-2021 Hemoglobin A1c/Hemoglobin.total in Blood HBA1C [facility] Start: 01-13-2021 3 comp foot exam completed DIABETIC FOOT EXAM [facility] Start: 01-12-2021 Adult depression screening assessment DEPRESSION SCREENING [facility] Start: 09-22-2016 End: 10-02-2016 *CMP Complete Metabolic Panel *CMP Complete Metabolic Panel [facility] Work Phone: Start: 09-22-2016 End: 10-02-2016 *Microalbumin, Creatine Ratio, rand urine *Microalbumin, Creatine Ratio, rand urine [facility] Work Phone: Start: 09-22-2016 End: 10-02-2016 Hemoglobin A1c/Hemoglobin.total mass fraction (Bld) [facility] Work Phone: Start: 09-22-2016 End: 10-02-2016 Lipid 1996 panel *Lipid Profile [facility] Work Phone: Start: 09-22-2016 End: 10-02-2016 Thyrotropin Qn *TSH [facility] Work Phone: Start: 02-05-2009 COLOGUARD (FIT-DNA) COLOGUARD (FIT-DNA) [facility] Start: 02-05-[address] COLONOGRAPHY [facility] Start: 02-05-2009 FECAL OCCULT BLOOD FECAL OCCULT BLOOD [facility] Start: 02-05-2009 Screening for malignant neoplasm of colon [facility] Start: 02-05-2009 SIGMOIDOSCOPY SIGMOIDOSCOPY [facility] Start: 04-25-2008 PNEUMOCOCCAL (2 - PCV) PNEUMOCOCCAL (2 - PCV) [facility] Start: 04-25-[address] [facility] Start: 04-25-2008 Pneumococcal Vaccine: 50+ (2 of 2 - PCV) Pneumococcal Vaccine: 50+ (2 of 2 - PCV) [facility] Start: 02-05-1983 HEPATITIS B (1 of 3 - Risk 3-dose series) HEPATITIS B (1 of 3 - Risk 3-dose series) [facility] Start: 02-05-1983 Urine microalbumin profile [facility] Start: 02-05-1982 Anxiety Screening Anxiety Screening [facility] Start: 02-05-1982 Depression Screening Depression Screening [facility] Start: 02-05-1982 HIV SCREENING HIV SCREENING [facility] Start: 02-05-1982 HIV screening HIV Screening [facility] Start: 02-05-1982 SPIROMETRY SPIROMETRY [facility] Start: 1965 HEPATITIS B (1 of 3 - 3-dose series) HEPATITIS B (1 of 3 - 3-dose series) [facility] Amphetamine [Mass/volume] in Urine [facility] Work Phone: Bacteria identified in Urine by Culture URINE CULTURE Microbiology Routine Pain with urination Ordered: 04/24/2022 [facility] Work Phone: Comment on above: Ordered: 04/24/2022 Bacteria identified in Urine by Culture URINE CULTURE Microbiology Routine Atrophic vaginitis Ordered: 08/17/2022 [facility] Work Phone: Comment on above: Ordered: 08/17/2022 BACTERIAL VAGINOSIS NAAT BACTERI AL VAGINOSIS NAAT Lab Routine Vaginal irritation 07/19/2024 12:12 PM EST [facility] Benzodiazepine measurement, urine [facility] Work Phone: JULIÁN/TRICHOMONAS NAAT JULIÁN /TRICHOMONAS NAAT Lab Routine Vaginal irritation 07/19/2024 12:12 PM EST [facility] Work Phone: Cocaine measurement, urine [facility] Work Phone: End: 10-18-2025 CT Neck W contrast IV CT NECK SOFT TISSUE W IVCON Radiology Routine Neck mass 1 Occurrences starting 09/18/2024 until 10/18/2025 [facility] Work Phone: Comment on above: 1 Occurrences starting 09/18/2024 until 10/18/2025 CYTOLOGY NON-TRANSPORT AIRCREWMAN CYTOLOGY NON-GY N Lab Routine Mass of right parotid gland 09/25/2024 7:52 AM EDT [facility] Work Phone: End: 11-02-2024 DBT Breast - bilateral screening SAUNDRA SCREENING W TAMARA Radiology Routine Encounter for gynecological examination (general) (routine) without abnormal findings Encounter for screening mammogram for breast cancer Dense breast tissue 1 Occurrences starting 10/04/2023 until 11/02/2024 [facility] Work Phone: Comment on above: 1 Occurrences starting 10/04/2023 until 11/02/2024 DBT Breast - bilater al screening SAUNDRA SCREENING W TAMARA Radiology Routine Encounter for gynecological examination (general) (routine) without abnormal findings Encounter for screening mammogram for breast cancer Dense breast tissue 10/06/2023 3:25 PM EDT [facility] Work Phone: End: 11-08-2025 DBT Breast - bilateral screening SAUNDRA SCREENING W TAMARA Radiology Routine Encounter for screening mammogram for breast cancer Dense breast tissue 1 Occurrences starting 10/09/2024 until 11/08/2025 [facility] Work Phone: Comment on above: 1 Occurrences starting 10/09/2024 until 11/08/2025 Ethanol [Mass/volume ] in Serum or Plasma [facility] Work Phone: Exc prtd erin/prtd gl nd lat dsj&prsrv facial nr PAROTIDECTOMY Parotid mass FV OR Hemoglobin A1c/Hemoglobin.total in Blood [facility] Magnesium [Mass/volu me] in Serum or Plasma [facility] Work Phone: Measurement of 3,4-methylenedioxymetham phetamine in urine [facility] Work Phone: Methadone measuremen t, urine [facility] Work Phone: End: 11-21-2025 MG Breast - bilateral Diagnostic SAUNDRA DIAGNOSTIC BILATERAL Radiology Routine Abnormal mammogram 1 Occurrences starting 10/22/2024 until 11/21/2025 [facility] Comment on above: 1 Occurrences starting 10/22/2024 until 11/21/2025 End: 12-28-2025 MG Breast - right Diagnostic for implant SAUNDRA DIAGNOSTIC RIGHT Radiology Routine Dense breast tissue Abnormal mammogram 1 Occurrences starting 11/28/2024 until 12/28/2025 [facility] Work Phone: Comment on above: 1 Occurrences starting 11/28/2024 until 12/28/[address]25 [address] [facility] Work Phone: pH of Urine [facility] Work Phone: Phencyclidine [Prese nce] in Urine [facility] Work Phone: POST VOID RESIDUAL POST VOID RES IDUAL Procedures Routine Atrophic vaginitis Ordered: 08/17/2022 [facility] Work Phone: Comment on above: Ordered: 08/17/2022 End: 03-15-2024 Radiologic exam chest 2 views XR CHEST 2V FRONTAL/LAT Radiology Routine Subacute cough 1 Occurrences starting 02/14/2023 until 03/15/2024 [facility] Work Phone: Comment on above: 1 Occurrences starting 02/14/2023 until 03/15/2024 Radiologic exam ches t 2 views XR CHEST 2V FRONTAL/LAT Radiology Routine Subacute cough 02/14/2023 4:22 PM EDT [facility] Work Phone: End: 03-22-2024 Radiologic exam chest 2 views XR CHEST 2V FRONTAL/LAT Radiology Routine Abnormal x-ray 1 Occurrences starting 02/21/2023 until 03/22/2024 [facility] Work Phone: Comment on above: 1 Occurrences starting 02/21/2023 until 03/22/2024 T4 free measurement [facility] Thyroid stimulating hormone measurement [facility] Urine barbiturate measurement [facility] Work Phone: Urine cannabinoid measurement [facility] Work Phone: Urine opiate measurement [facility] Work Phone: End: 11-21-2025 US Breast - left limited US BREAST LTD LEFT Radiology Routine Abnormal mammogram 1 Occurrences starting 10/22/2024 until 11/21/2025 [facility] Work Phone: Comment on above: 1 Occurrences starting 10/22/2024 until 11/21/2025 End: 11-21-2025 US Breast - right limited US BREAST LTD RIGHT Radiology Routine Abnormal mammogram 1 Occurrences starting 10/22/2024 until 11/21/2025 [facility] Comment on above: 1 Occurrences starting 10/22/2024 until 11/21/2025 End: 01-25-2026 US Breast - right limited US BREAST LTD RIGHT Radiology Routine Sebaceous cyst of right axilla 1 Occurrences starting 12/25/2024 until 01/25/2026 [facility] Work Phone: Comment on above: 1 Occurrences starting 12/25/2024 until 01/25/2026 [facility] Immunizations Immunization Date Immunization Notes Care Provider Amos villeda 04-04-2024 influenza, seasonal, injectable, preservative free William Steinberg MD Work Phone: [facility] 04-04-2024 influenza virus vacc ine, unspecified formulation Diagnostic Wstr [facility] 03-24-2023 influenza, injectabl e, quadrivalent, contains preservative Carina Lange PA-C Work Phone: [facility] 03-24-2023 influenza virus vacc ine, unspecified formulation William Steinberg MD Work Phone: [facility] 03-24-2022 influenza, injectabl e, quadrivalent, preservative free William Steinberg MD Work Phone: [facility] 04-18-2021 influenza, injectabl e, quadrivalent, contains preservative Carina Lange PA-C Work Phone: [facility] Work Phone: 03-27-2021 Covid (Pfizer) Dr. William العراقي Work Phone: [facility] 03-27-2021 influenza, injectabl e, quadrivalent, preservative free [facility] 03-27-2021 influenza, seasonal, injectable Dr. William Steinberg Work Phone: [facility] 09-24-2020 COVID-19 vaccine, ag e 12+ yr (PFIZER-BIONTECH - PURPLE TOP) Carina Lange PA-C Work Phone: [facility] Work Phone: 09-03-2020 COVID-19 vaccine, ag e 12+ yr (PFIZER-BIONTECH - PURPLE TOP) Carina Lange PA-C Work Phone: [facility] Work Phone: 03-21-2020 influenza, injectabl e, quadrivalent, preservative free Carina Lange PA-C Work Phone: [facility] 03-12-2020 influenza, injectabl e, quadrivalent, preservative free Carina Lange PA-C Work Phone: [facility] 12-06-2019 zoster vaccine recombinant Carina Lange PA-C Work Phone: [facility] Work Phone: 06-18-2019 zoster vaccine recombinant Carina Lange PA-C Work Phone: [facility] Work Phone: 03-27-2016 influenza, seasonal, injectable Carina Lange PA-C Work Phone: [facility] 05-05-2013 influenza virus vacc ine, whole virus Carina Lange PA-C Work Phone: [facility] Work Phone: 05-09-2008 influenza virus vacc ine, unspecified formulation Carina Lange PA-C Work Phone: [facility] Work Phone: 04-25-2007 pneumococcal polysaccharide vaccine, 23 valent Carina Lange PA-C Work Phone: [facility] Work Phone: 04-05-2007 influenza virus vacc ine, unspecified formulation Carina Lange PA-C Work Phone: [facility] Work Phone: 04-19-2006 influenza virus vacc ine, unspecified formulation Carina Lange PA-C Work Phone: [facility] Work Phone: 05-04-2005 influenza virus vacc ine, unspecified formulation Carina Lange PA-C Work Phone: [facility] Work Phone: Payers Date Payer Category Payer Self-pay [id number] 2019 Private Health Insurance [facility] CHOICE PLUS [id number] 2019-Present [phone] [id number] [place] [address] O [id number] 2019 Private Health Insurance [id number] 2019 Private Health Insurance [id number] Unknown [id number] Unknown [id number] Unknown [id number] Unknown [id number] Social History Date Type Detail Facility Start: 05-19-2016 End: 04-24-2022 Tobacco smoking status NHIS Occasional tobacco smoker [facility] End: 06-28-2010 History of tobacco use Smoker [facility] Start: 05-19-2016 End: 02-21-2023 Cigarettes smoked current (pack per day) - Reported 0.5 [facility] Start: 05-19-2016 End: 03-05-2024 Tobacco use and exposure Smokeless tobacco non-user [facility] Start: 09-15-2021 End: 02-14-2023 Alcohol intake Current drinker of alcohol (finding) [facility] Start: 01-13-2020 End: 10-19-2021 History SDOH Alcohol Frequency 1 [facility] Start: 01-13-2020 End: 10-19-2021 History SDOH Alcohol Std Drinks 98 [facility] Start: 09-15-2021 History SDOH Alcohol Comment Occasionally [facility] Start: 01-13-2020 End: 10-19-2021 History SDOH Social Connections Phone 5 [facility] Start: 01-13-2020 End: 10-19-2021 History SDOH Social Connections Get Together 2 [facility] Start: 01-13-2020 End: 10-19-2021 History SDOH Social Connections Jainism 3 [facility] Start: 01-13-2020 Education 16 [facility] Start: 05-09-2012 End: 04-24-2022 Tobacco Comment seldom [facility] Start: 1965 Sex Assigned At Female C [facility] Start: 09-05-2021 End: 05-07-2022 Exposure to SARS-CoV-2 (event) Not sure [facility] Start: 10-17-2021 End: 04-14-2023 Tobacco smoking status NHIS Unknown if ever smoked [facility] Start: 07-24-2018 Cigarettes [facility] Start: 10-19-2021 History SDOH Physica l Activity DPW 0 [facility] End: 06-28-2010 History of tobacco use Cigarette Smoker [facility] Start: 02-14-2023 End: 03-05-2024 Tobacco smoking status NHIS Smokes tobacco daily [facility] Start: 10-19-2021 End: 02-21-2023 Social connection and isolation panel [facility] Do you belong to any clubs or organizations such as presybeterian groups, unions, fraternal or athletic groups, or school groups? No [facility] Are you now , , , , never or living with a partner? [facility] Start: 05-28-2012 How often to you hav e a drink containing alcohol? Patient refused [facility] Do you feel stress - tense, restless, nervous, or anxious, or unable to sleep at night because your mind is troubled all the time - these days [OSQ] To some extent [facility] (I/We) worried whesalvatore er (my/our) food would run out before (I/we) got money to buy more. Never true [facility] Start: 04-14-2021 Gender identity Identifies as female gender (finding) [facility] Start: 04-14-2021 Sexual orientation Heterosexual (fin ding) [facility] How often to you hav e a drink containing alcohol? Never [facility] Do you feel stress - tense, restless, nervous, or anxious, or unable to sleep at night because your mind is troubled all the time - these days [OSQ] Not at all [facility] Start: 10-04-2023 End: 11-01-2024 Alcohol intake Ex-drinker (finding) [facility] Start: 04-14-2023 Tobacco smoking stat us WAIS Current Light tobacco smoker [facility] NEGATED: Highlighted row [facility] Medical Equipment Procedure Code Equipment Code Equipment Origin al Text Equipment Identifier Dates [id number], [id number], [id number], [id number] Start: 05-16-2006 Comment on above: use as directed CHECK BLOOD SUGARS 8 TIMES DAILY testing 8 times vi y Blood Sugar Diagnostic (Accu-Chek Guide Test Strips) strip Start: 08-01-2020 Blood Sugar Diagnostic (Accu-Chek Guide Test Strips) strip Start: 07-17-2021 Blood Sugar Diagnostic (Contour Next Test Strips) strip Start: 06-06-2020 Insulin Syringe-Needle U-100 (Bd Insulin Syringe Ultra-Fine) 0.3 mL 31 gauge x 5/16 syringe Start: 07-10-2020 Blood Sugar Diagnostic (Accu-Chek Guide Test Strips) strip Start: 08-01-2020 End: 08-01-2020 Blood Sugar Diagnostic (Accu-Chek Guide Test Strips) strip Start: 08-01-2020 End: 07-17-2021 Blood Sugar Diagnostic (Accu-Chek Guide) strip Start: 07-03-2018 End: 07-03-2018 Blood Sugar Diagnostic (Accu-Chek Guide) strip Start: 07-03-2018 End: 01-14-2020 Blood Sugar Diagnostic (Contour Next Test Strips) strip Start: 02-25-2020 End: 02-26-2020 Blood Sugar Diagnostic (Contour Next Test Strips) strip Start: 02-26-2020 End: 06-06-2020 Blood Sugar Diagnostic (Onetouch Ultra Blue Test Strip) strip Start: 11-22-2017 End: 11-22-2017 Blood Sugar Diagnostic (Onetouch Ultra Blue Test Strip) strip Start: 11-22-2017 End: 08-22-2018 Lancets (Accu-Ch ek Fastclix Lancet Drum) misc Start: 07-03-2018 End: 07-03-2018 Lancets (Accu-Ch ek Fastclix Lancet Drum) misc Start: 07-03-2018 End: 01-14-2020 Blood Sugar Diagnostic (Accu-Chek Guide Test Strips) strip Start: 08-01-2020 Blood Sugar Diagnostic (Accu-Chek Guide Test Strips) strip Start: 07-17-2021 Blood Sugar Diagnostic (Contour Next Test Strips) strip Start: 06-06-2020 Insulin Syringe-Needle U-100 (Bd Insulin Syringe Ultra-Fine) 0.3 mL 31 gauge x 5/16 syringe Start: 07-10-2020 Blood Sugar Diagnostic (Accu-Chek Guide Test Strips) strip Start: 08-01-2020 End: 08-01-2020 Blood Sugar Diagnostic (Accu-Chek Guide Test Strips) strip Start: 08-01-2020 End: 07-17-2021 Blood Sugar Diagnostic (Accu-Chek Guide) strip Start: 07-03-2018 End: 07-03-2018 Blood Sugar Diagnostic (Accu-Chek Guide) strip Start: 07-03-2018 End: 01-14-2020 Blood Sugar Diagnostic (Contour Next Test Strips) strip Start: 02-25-2020 End: 02-26-2020 Blood Sugar Diagnostic (Contour Next Test Strips) strip Start: 02-26-2020 End: 06-06-2020 Blood Sugar Diagnostic (Onetouch Ultra Blue Test Strip) strip Start: 11-22-2017 End: 11-22-2017 Blood Sugar Diagnostic (Onetouch Ultra Blue Test Strip) strip Start: 11-22-2017 End: 08-22-2018 Lancets (Accu-Ch ek Fastclix Lancet Drum) misc Start: 07-03-2018 End: 07-03-2018 Lancets (Accu-Ch ek Fastclix Lancet Drum) misc Start: 07-03-2018 End: 01-14-2020 Blood Sugar Diagnostic (Accu-Chek Guide Test Strips) strip Start: 08-01-2020 Blood Sugar Diagnostic (Accu-Chek Guide Test Strips) strip Start: 07-17-2021 Insulin Syringe-Needle U-100 (Bd Insulin Syringe Ultra-Fine) 0.3 mL 31 gauge x 5/16 syringe Start: 07-10-2020 Blood Sugar Diagnostic (Accu-Chek Guide Test Strips) strip Start: 08-01-2020 End: 08-01-2020 Blood Sugar Diagnostic (Accu-Chek Guide Test Strips) strip Start: 08-01-2020 End: 07-17-2021 Blood Sugar Diagnostic (Accu-Chek Guide) strip Start: 07-03-2018 End: 07-03-2018 Blood Sugar Diagnostic (Accu-Chek Guide) strip Start: 07-03-2018 End: 01-14-2020 Blood Sugar Diagnostic (Contour Next Test Strips) strip Start: 02-25-2020 End: 02-26-2020 Blood Sugar Diagnostic (Contour Next Test Strips) strip Start: 02-26-2020 End: 06-06-2020 Blood Sugar Diagnostic (Contour Next Test Strips) strip Start: 06-06-2020 End: 02-11-2022 Blood Sugar Diagnostic (Onetouch Ultra Blue Test Strip) strip Start: 11-22-2017 End: 11-22-2017 Blood Sugar Diagnostic (Onetouch Ultra Blue Test Strip) strip Start: 11-22-2017 End: 08-22-2018 Lancets (Accu-Ch ek Fastclix Lancet Drum) misc Start: 07-03-2018 End: 07-03-2018 Lancets (Accu-Ch ek Fastclix Lancet Drum) misc Start: 07-03-2018 End: 01-14-2020 Blood Sugar Diagnostic (Accu-Chek Guide Test Strips) strip Start: 08-01-2020 Blood Sugar Diagnostic (Accu-Chek Guide Test Strips) strip Start: 07-17-2021 Insulin Syringe-Needle U-100 (Bd Insulin Syringe Ultra-Fine) 0.3 mL 31 gauge x 5/16 syringe Start: 07-10-2020 Blood Sugar Diagnostic (Accu-Chek Guide Test Strips) strip Start: 08-01-2020 End: 08-01-2020 Blood Sugar Diagnostic (Accu-Chek Guide Test Strips) strip Start: 08-01-2020 End: 07-17-2021 Blood Sugar Diagnostic (Accu-Chek Guide) strip Start: 07-03-2018 End: 07-03-2018 Blood Sugar Diagnostic (Accu-Chek Guide) strip Start: 07-03-2018 End: 01-14-2020 Blood Sugar Diagnostic (Contour Next Test Strips) strip Start: 02-25-2020 End: 02-26-2020 Blood Sugar Diagnostic (Contour Next Test Strips) strip Start: 02-26-2020 End: 06-06-2020 Blood Sugar Diagnostic (Contour Next Test Strips) strip Start: 06-06-2020 End: 02-11-2022 Blood Sugar Diagnostic (Onetouch Ultra Blue Test Strip) strip Start: 11-22-2017 End: 11-22-2017 Blood Sugar Diagnostic (Onetouch Ultra Blue Test Strip) strip Start: 11-22-2017 End: 08-22-2018 Lancets (Accu-Ch ek Fastclix Lancet Drum) misc Start: 07-03-2018 End: 07-03-2018 Lancets (Accu-Ch ek Fastclix Lancet Drum) misc Start: 07-03-2018 End: 01-14-2020 Blood Sugar Diagnostic (Accu-Chek Guide Test Strips) strip Start: 05-11-2022 Insulin Syringe-Needle U-100 (Bd Insulin Syringe Ultra-Fine) 0.3 mL 31 gauge x 5/16 syringe Start: 07-10-2020 Blood Sugar Diagnostic (Accu-Chek Guide Test Strips) strip Start: 08-01-2020 End: 08-01-2020 Blood Sugar Diagnostic (Accu-Chek Guide Test Strips) strip Start: 08-01-2020 End: 07-17-2021 Blood Sugar Diagnostic (Accu-Chek Guide Test Strips) strip Start: 08-01-2020 End: 05-11-2022 Blood Sugar Diagnostic (Accu-Chek Guide Test Strips) strip Start: 07-17-2021 End: 05-11-2022 Blood Sugar Diagnostic (Accu-Chek Guide) strip Start: 07-03-2018 End: 07-03-2018 Blood Sugar Diagnostic (Accu-Chek Guide) strip Start: 07-03-2018 End: 01-14-2020 Blood Sugar Diagnostic (Contour Next Test Strips) strip Start: 02-25-2020 End: 02-26-2020 Blood Sugar Diagnostic (Contour Next Test Strips) strip Start: 02-26-2020 End: 06-06-2020 Blood Sugar Diagnostic (Contour Next Test Strips) strip Start: 06-06-2020 End: 02-11-2022 Blood Sugar Diagnostic (Onetouch Ultra Blue Test Strip) strip Start: 11-22-2017 End: 11-22-2017 Blood Sugar Diagnostic (Onetouch Ultra Blue Test Strip) strip Start: 11-22-2017 End: 08-22-2018 Lancets (Accu-Ch ek Fastclix Lancet Drum) misc Start: 07-03-2018 End: 07-03-2018 Lancets (Accu-Ch ek Fastclix Lancet Drum) misc Start: 07-03-2018 End: 01-14-2020 Blood Sugar Diagnostic (Accu-Chek Guide Test Strips) strip Start: 05-11-2022 Insulin Syringe-Needle U-100 (Bd Insulin Syringe Ultra-Fine) 0.3 mL 31 gauge x 5/16 syringe Start: 07-10-2020 Blood Sugar Diagnostic (Accu-Chek Guide Test Strips) strip Start: 08-01-2020 End: 08-01-2020 Blood Sugar Diagnostic (Accu-Chek Guide Test Strips) strip Start: 08-01-2020 End: 07-17-2021 Blood Sugar Diagnostic (Accu-Chek Guide Test Strips) strip Start: 08-01-2020 End: 05-11-2022 Blood Sugar Diagnostic (Accu-Chek Guide Test Strips) strip Start: 07-17-2021 End: 05-11-2022 Blood Sugar Diagnostic (Accu-Chek Guide) strip Start: 07-03-2018 End: 07-03-2018 Blood Sugar Diagnostic (Accu-Chek Guide) strip Start: 07-03-2018 End: 01-14-2020 Blood Sugar Diagnostic (Contour Next Test Strips) strip Start: 02-25-2020 End: 02-26-2020 Blood Sugar Diagnostic (Contour Next Test Strips) strip Start: 02-26-2020 End: 06-06-2020 Blood Sugar Diagnostic (Contour Next Test Strips) strip Start: 06-06-2020 End: 02-11-2022 Blood Sugar Diagnostic (Onetouch Ultra Blue Test Strip) strip Start: 11-22-2017 End: 11-22-2017 Blood Sugar Diagnostic (Onetouch Ultra Blue Test Strip) strip Start: 11-22-2017 End: 08-22-2018 Lancets (Accu-Ch ek Fastclix Lancet Drum) misc Start: 07-03-2018 End: 07-03-2018 Lancets (Accu-Ch ek Fastclix Lancet Drum) misc Start: 07-03-2018 End: 01-14-2020 Blood Sugar Diagnostic (Accu-Chek Guide Test Strips) strip Start: 05-11-2022 Insulin Syringe-Needle U-100 (Bd Insulin Syringe Ultra-Fine) 0.3 mL 31 gauge x 5/16 syringe Start: 07-10-2020 Blood Sugar Diagnostic (Accu-Chek Guide Test Strips) strip Start: 08-01-2020 End: 08-01-2020 Blood Sugar Diagnostic (Accu-Chek Guide Test Strips) strip Start: 08-01-2020 End: 07-17-2021 Blood Sugar Diagnostic (Accu-Chek Guide Test Strips) strip Start: 08-01-2020 End: 05-11-2022 Blood Sugar Diagnostic (Accu-Chek Guide Test Strips) strip Start: 07-17-2021 End: 05-11-2022 Blood Sugar Diagnostic (Accu-Chek Guide) strip Start: 07-03-2018 End: 07-03-2018 Blood Sugar Diagnostic (Accu-Chek Guide) strip Start: 07-03-2018 End: 01-14-2020 Blood Sugar Diagnostic (Contour Next Test Strips) strip Start: 02-25-2020 End: 02-26-2020 Blood Sugar Diagnostic (Contour Next Test Strips) strip Start: 02-26-2020 End: 06-06-2020 Blood Sugar Diagnostic (Contour Next Test Strips) strip Start: 06-06-2020 End: 02-11-2022 Blood Sugar Diagnostic (Onetouch Ultra Blue Test Strip) strip Start: 11-22-2017 End: 11-22-2017 Blood Sugar Diagnostic (Onetouch Ultra Blue Test Strip) strip Start: 11-22-2017 End: 08-22-2018 Lancets (Accu-Ch ek Fastclix Lancet Drum) misc Start: 07-03-2018 End: 07-03-2018 Lancets (Accu-Ch ek Fastclix Lancet Drum) misc Start: 07-03-2018 End: 01-14-2020 Blood Sugar Diagnostic (Accu-Chek Guide Test Strips) strip Start: 05-11-2022 Insulin Syringe-Needle U-100 (Bd Insulin Syringe Ultra-Fine) 0.3 mL 31 gauge x 5/16 syringe Start: 07-10-2020 Blood Sugar Diagnostic (Accu-Chek Guide Test Strips) strip Start: 08-01-2020 End: 08-01-2020 Blood Sugar Diagnostic (Accu-Chek Guide Test Strips) strip Start: 08-01-2020 End: 07-17-2021 Blood Sugar Diagnostic (Accu-Chek Guide Test Strips) strip Start: 08-01-2020 End: 05-11-2022 Blood Sugar Diagnostic (Accu-Chek Guide Test Strips) strip Start: 07-17-2021 End: 05-11-2022 Blood Sugar Diagnostic (Accu-Chek Guide) strip Start: 07-03-2018 End: 07-03-2018 Blood Sugar Diagnostic (Accu-Chek Guide) strip Start: 07-03-2018 End: 01-14-2020 Blood Sugar Diagnostic (Contour Next Test Strips) strip Start: 02-25-2020 End: 02-26-2020 Blood Sugar Diagnostic (Contour Next Test Strips) strip Start: 02-26-2020 End: 06-06-2020 Blood Sugar Diagnostic (Contour Next Test Strips) strip Start: 06-06-2020 End: 02-11-2022 Blood Sugar Diagnostic (Onetouch Ultra Blue Test Strip) strip Start: 11-22-2017 End: 11-22-2017 Blood Sugar Diagnostic (Onetouch Ultra Blue Test Strip) strip Start: 11-22-2017 End: 08-22-2018 Lancets (Accu-Ch ek Fastclix Lancet Drum) misc Start: 07-03-2018 End: 07-03-2018 Lancets (Accu-Ch ek Fastclix Lancet Drum) misc Start: 07-03-2018 End: 01-14-2020 Blood Sugar Diagnostic (Accu-Chek Guide Test Strips) strip Start: 05-11-2022 Insulin Syringe-Needle U-100 (Bd Insulin Syringe Ultra-Fine) 0.3 mL 31 gauge x 5/16 syringe Start: 07-10-2020 Blood Sugar Diagnostic (Accu-Chek Guide Test Strips) strip Start: 08-01-2020 End: 08-01-2020 Blood Sugar Diagnostic (Accu-Chek Guide Test Strips) strip Start: 08-01-2020 End: 07-17-2021 Blood Sugar Diagnostic (Accu-Chek Guide Test Strips) strip Start: 08-01-2020 End: 05-11-2022 Blood Sugar Diagnostic (Accu-Chek Guide Test Strips) strip Start: 07-17-2021 End: 05-11-2022 Blood Sugar Diagnostic (Accu-Chek Guide) strip Start: 07-03-2018 End: 07-03-2018 Blood Sugar Diagnostic (Accu-Chek Guide) strip Start: 07-03-2018 End: 01-14-2020 Blood Sugar Diagnostic (Contour Next Test Strips) strip Start: 02-25-2020 End: 02-26-2020 Blood Sugar Diagnostic (Contour Next Test Strips) strip Start: 02-26-2020 End: 06-06-2020 Blood Sugar Diagnostic (Contour Next Test Strips) strip Start: 06-06-2020 End: 02-11-2022 Blood Sugar Diagnostic (Onetouch Ultra Blue Test Strip) strip Start: 11-22-2017 End: 11-22-2017 Blood Sugar Diagnostic (Onetouch Ultra Blue Test Strip) strip Start: 11-22-2017 End: 08-22-2018 Lancets (Accu-Ch ek Fastclix Lancet Drum) misc Start: 07-03-2018 End: 07-03-2018 Lancets (Accu-Ch ek Fastclix Lancet Drum) misc Start: 07-03-2018 End: 01-14-2020 Blood Sugar Diagnostic (Accu-Chek Guide Test Strips) strip Start: 05-11-2022 Insulin Syringe-Needle U-100 (Bd Insulin Syringe Ultra-Fine) 0.3 mL 31 gauge x 5/16 syringe Start: 07-10-2020 Blood Sugar Diagnostic (Accu-Chek Guide Test Strips) strip Start: 08-01-2020 End: 08-01-2020 Blood Sugar Diagnostic (Accu-Chek Guide Test Strips) strip Start: 08-01-2020 End: 07-17-2021 Blood Sugar Diagnostic (Accu-Chek Guide Test Strips) strip Start: 08-01-2020 End: 05-11-2022 Blood Sugar Diagnostic (Accu-Chek Guide Test Strips) strip Start: 07-17-2021 End: 05-11-2022 Blood Sugar Diagnostic (Accu-Chek Guide) strip Start: 07-03-2018 End: 07-03-2018 Blood Sugar Diagnostic (Accu-Chek Guide) strip Start: 07-03-2018 End: 01-14-2020 Blood Sugar Diagnostic (Contour Next Test Strips) strip Start: 02-25-2020 End: 02-26-2020 Blood Sugar Diagnostic (Contour Next Test Strips) strip Start: 02-26-2020 End: 06-06-2020 Blood Sugar Diagnostic (Contour Next Test Strips) strip Start: 06-06-2020 End: 02-11-2022 Blood Sugar Diagnostic (Onetouch Ultra Blue Test Strip) strip Start: 11-22-2017 End: 11-22-2017 Blood Sugar Diagnostic (Onetouch Ultra Blue Test Strip) strip Start: 11-22-2017 End: 08-22-2018 Lancets (Accu-Ch ek Fastclix Lancet Drum) misc Start: 07-03-2018 End: 07-03-2018 Lancets (Accu-Ch ek Fastclix Lancet Drum) misc Start: 07-03-2018 End: 01-14-2020 Goals Date Patient Goal Desired Activity /State Functional Status Date Assessment Result Facility 02-23-2022 Functional status Ambulates [facility] Work Phone: 10-18-2021 Functional status Ambulates [facility] Work Phone: 05-15-2014 Are you deaf, or do you have serious difficulty hearing No 05/15/2014 7:47 AM Mindi Winston MA No [facility] 05-15-2014 Are you blind, or do you have serious difficulty seeing, even when wearing glasses No 05/15/2014 7:47 AM Mindi Winston MA [facility] 05-15-2014 Do you have serious difficulty walking or climbing stairs No 05/15/2014 7:47 AM Mindi Winston MA [facility] 05-15-2014 Do you have difficul ty dressing or bathing No 05/15/2014 7:47 AM Mindi Winston MA [facility] 05-15-2014 Because of a physica l, mental, or emotional condition, do you have difficulty doing errands alone such as visiting a physician's office or shopping No 05/15/2014 7:47 AM Mindi Winston MA [facility] Mental Status Date Assessment Result Facility 07-26-2022 Cognitive function Voice/Name [facility] Work Phone: 02-23-2022 Cognitive function Voice/Name [facility] Work Phone: 10-18-2021 Cognitive function Voice/Name;To uch/Shaking;L ight Pain;Deep Pain [facility] Work Phone: 07-13-2021 Cognitive function Voice/Name [facility] Work Phone: 07-13-2021 Cognitive function Patient Orien tation Person;Place;Time [facility] Work Phone: 05-15-2014 Because of a physica l, mental, or emotional condition, do you have serious difficulty concentrating, remembering, or making decisions No 05/15/2014 7:47 AM Mindi Winston MA No [facility] Clinical Notes 07-20-2012 to 04-03-2025 Aaron Scott Mammo Tech - 12/25/2024 9:00 AM EDTTelephone Encounter - Mary Umana MA - 12/24/2024 6:12 PM EDTTelephone Encounter - Mary Umana MA - 12/24/2024 6:12 PM EDT Note Date & Type Note Facility 04-03-2025 Note HNO ID: [id number] Author: PEACE CARDENAS RDMS Service: ? Author Type: [employer] Type: Progress Notes Filed: 04/04/2025 14:50 Note Text: Radiology Service Progress Note PATIENT NAME: Mayi Mata DATE OF SERVICE: April 04, 2025 TIME: 2:49 PM PATIENT IDENTITY VERIFICATION COMPLETED USING TWO (2) IDENTIFIERS: Name and Date of confirmed by patient verbally. FALL SCREENING: Has the patient had 2 falls in the last year or 1 fall with injury or currently using an Ambulatory Assistive Device (Walker, Cane, Wheelchair, Crutches, etc.)? No PATIENT GENDER DATA: Assigned female at . status: : No status: NO. PATIENT RELEVANT IMPLANT DATA REVIEWED: Not Applicable PATIENT PRESENTS WITH AN IMPLANTABLE OR ATTACHED WIRELESS SALES REPRESENTATIVE: No RADIOLOGY DEPARTMENT: Ultrasound PERIPHERAL IV DATA: Not applicable SIGNED BY: Peace Cardenas RDMS RVT April 04, 2025 2:49 PM [facility] 12-25-2024 Note HNO ID: [id number] Author: PEACE CARDENAS RDMS Service: ? Author Type: [employer] Type: Progress Notes Filed: 12/26/2024 09:48 Note Text: Radiology Service Progress Note PATIENT NAME: Mayi Maat DATE OF SERVICE: December 26, 2024 TIME: 9:48 AM PATIENT IDENTITY VERIFICATION COMPLETED USING TWO (2) IDENTIFIERS: Name and Date of confirmed by patient verbally. FALL SCREENING: Has the patient had 2 falls in the last year or 1 fall with injury or currently using an Ambulatory Assistive Device (Walker, Cane, Wheelchair, Crutches, etc.)? No PATIENT GENDER DATA: Assigned female at . status: : No status: NO. PATIENT RELEVANT IMPLANT DATA REVIEWED: Not Applicable PATIENT PRESENTS WITH AN IMPLANTABLE OR ATTACHED WIRELESS SALES REPRESENTATIVE: No RADIOLOGY DEPARTMENT: Ultrasound PERIPHERAL IV DATA: Not applicable SIGNED BY: Peace Cardenas RDMS RVT December 26, 2024 9:48 AM [facility] 12-25-2024 History of Present illness Narrative Radiology Service Progress Note PATIENT NAME: Mayi Mata DATE OF SERVICE: December 25, 2024 TIME: 8:54 AM PATIENT IDENTITY VERIFICATION COMPLETED USING TWO (2) IDENTIFIERS: Name and Date of confirmed by patient verbally. FALL SCREENING: Has the patient had 2 falls in the last year or 1 fall with injury or currently using an Ambulatory Assistive Device (Walker, Cane, Wheelchair, Crutches, etc.)? No PATIENT GENDER DATA: Assigned female at . status: : No status: NO. PATIENT RELEVANT IMPLANT DATA REVIEWED: Not Applicable PATIENT PRESENTS WITH AN IMPLANTABLE OR ATTACHED WIRELESS SALES REPRESENTATIVE: No RADIOLOGY DEPARTMENT: Mammography PERIPHERAL IV DATA: Not applicable SIGNED BY: Gricel Cooper December 25, 2024 8:54 AM documented in this encounter [facility] 12-25-2024 Note HNO ID: [id number] Author: AARON SCOTT Mammo Tech Service: ? Author Type: Brake Repairer Type: Progress Notes Filed: 12/25/2024 08:54 Note Text: Radiology Service Progress Note PATIENT NAME: Mayi Mata DATE OF SERVICE: December 25, 2024 TIME: 8:54 AM PATIENT IDENTITY VERIFICATION COMPLETED USING TWO (2) IDENTIFIERS: Name and Date of confirmed by patient verbally. FALL SCREENING: Has the patient had 2 falls in the last year or 1 fall with injury or currently using an Ambulatory Assistive Device (Walker, Cane, Wheelchair, Crutches, etc.)? No PATIENT GENDER DATA: Assigned female at . status: : No status: NO. PATIENT RELEVANT IMPLANT DATA REVIEWED: Not Applicable PATIENT PRESENTS WITH AN IMPLANTABLE OR ATTACHED WIRELESS SALES REPRESENTATIVE: No RADIOLOGY DEPARTMENT: Mammography PERIPHERAL IV DATA: Not applicable SIGNED BY: Gricel Cooper December 25, 2024 8:54 AM [facility] 12-24-2024 Telephone encounter Note See [employer] message. Mary Umana MA [facility] 12-24-2024 Miscellaneous Notes See [employer] message. Mary Umana MA documented in this encounter [facility] 11-28-2024 Telephone encounter Note Order signed. Peace Cuevas APRN.CNM [facility] 11-28-2024 Miscellaneous Notes Order signed. Peace Cuevas APRN.CNM Please file an order for a right diagnostic mammogram.Patient is only a call back for additional imaging of the right breast. Thank you. documented in this encounter [facility] 11-28-2024 Telephone encounter Note Please file an order for a right diagnostic mammogram.Patient is only a call back for additional imaging of the right breast. Thank you. [facility] 11-20-2024 Telephone encounter Note Prescription Refill Information The patient has been identified by name and date of : Yes Caregiver verified no other encounters exist for this prescription request: Yes Caregiver confirmed with patient/requestor that no other refills are due, in the near future, with this provider at this time: Yes The last office visit in the department: 09/18/24 Does the patient have a future office visit with this provider/department: No Mychart reminder sent to patient Requested Prescriptions Pending Prescriptions Disp Refills fluticasone-salmeterol (WIXELA INHUB) 500-50 mcg/dose dsdv 180 each 3 Sig: Inhale 1 puff as instructed two times a day. Dinora Jane MA November 20, 2024 8:35 AM [facility] 11-20-2024 Miscellaneous Notes Prescription Refill Information The patient has been identified by name and date of : Yes Caregiver verified no other encounters exist for this prescription request: Yes Caregiver confirmed with patient/requestor that no other refills are due, in the near future, with this provider at this time: Yes The last office visit in the department: 09/18/24 Does the patient have a future office visit with this provider/department: No Mychart reminder sent to patient Requested Prescriptions Pending Prescriptions Disp Refills fluticasone-salmeterol (WIXELA INHUB) 500-50 mcg/dose dsdv 180 each 3 Sig: Inhale 1 puff as instructed two times a day. Dinora Jane MA November 20, 2024 8:35 AM documented in this encounter [facility] 11-01-2024 Note HNO ID: [id number] Author: MARY LOU HWANG MD Service: ? Author Type: Physician Type: Progress Notes Filed: 11/01/2024 09:04 Note Text: History: Mayi Mata, a 59 year old female - IDDM - on pump, presents s/p R sup parotidectomy w/o CN VII dissection 10/25/24. Path: warthins. Mild numbness of ear lobe. FNA 09/25/24: neg for malig cells, limited cellularity, cyst contents and rare oncocytes. Suggestive of warthins. CT neck 09/21/24: 13 x 10 x 15 mm R parotid mass. Deniess difficulty swallowing solids and liquids, pain with swallowing, hoarseness, shortness of breath, cough, hemoptysis, ear pain, throat clearing, post-nasal drip, fever, chills, weight loss. No history of thyroid disease/surgery. No history of trauma. smoke 1/3 ppd. Off alcohol. PE: Alert; oriented; well-developed; no apparent distress. Normal voice; normal communication. Neck: wound intact. Neck flat. Min ecchymosis. CN VII intact. Assessment/Plan: S/p R sup parotidectomy w/o CN VII dissection. Path: warthins. Sutures removed. F/up 3 mos. [facility] 11-01-2024 History of Present illness Narrative History: Mayi Mata, a 59 year old female - IDDM - on pump, presents s/p R sup parotidectomy w/o CN VII dissection 10/25/24. Path: warthins. Mild numbness of ear lobe. FNA 09/25/24: neg for malig cells, limited cellularity, cyst contents and rare oncocytes. Suggestive of warthins. CT neck 09/21/24: 13 x 10 x 15 mm R parotid mass. Deniess difficulty swallowing solids and liquids, pain with swallowing, hoarseness, shortness of breath, cough, hemoptysis, ear pain, throat clearing, post-nasal drip, fever, chills, weight loss. No history of thyroid disease/surgery. No history of trauma. smoke 1/3 ppd. Off alcohol. PE: Alert; oriented; well-developed; no apparent distress. Normal voice; normal communication. Neck: wound intact. Neck flat. Min ecchymosis. CN VII intact. Assessment/Plan: S/p R sup parotidectomy w/o CN VII dissection. Path: warthins. Sutures removed. F/up 3 mos. documented in this encounter [facility] 10-25-2024 Note HNO ID: [id number] Author: MARY LOU HWANG MD Service: Otolaryngology Author Type: Physician Type: Discharge Summary Filed: 10/25/2024 09:33 Note Text: Tolerated procedure without complication. Discharged to home. See discharge instructions. [facility] 10-25-2024 Note HNO ID: [id number] Author: MASR ZARATE APRN.SPEECH LANGUAGE PATHOLOGIST PRN Service: Nursing Author Type: Nurse Information Systems Administrator Type: Anesthesia Procedure Notes Filed: 10/25/2024 08:11 Note Text: ANESTHESIOLOGY PROCEDURE NOTE Airway General Information Procedure Start Time/Medication Administration: 10/25/2024 7:42 AM Procedure End Time: 10/25/2024 7:42 AM Patient location during procedure: OR Consent Obtained: Yes Patient identity confirmed: arm band, care support team assoc and patient Staffing Anesthesiologist: Tony Grullon MD SPEECH LANGUAGE PATHOLOGIST PRN: Mars Zarate APRN.SPEECH LANGUAGE PATHOLOGIST PRN Performed by: SPEECH LANGUAGE PATHOLOGIST PRN Indications and Patient Condition Indications for airway management: anesthesia Preoxygenated: yes anesthesia circuit Patient position: ramp Method: sleep Difficult Mask: No Final Airway Details Final airway type: endotracheal airway Final Endotracheal Airway: ETT Cuffed: yes Successful intubation technique: direct laryngoscopy Endotracheal tube insertion site: oral Blade: Sofie Blade size: #3 ETT size (mm): 7.0 Measured from: lips Measurement (cm): 21 Placement verified by: capnometry Cormack-Lehane Classification: grade IIa - partial view of glottis Number of attempts at approach: 1 Airway not difficult SIGNATURE: ILAN Wilson APRN.SPEECH LANGUAGE PATHOLOGIST PRN PATIENT NAME: Mayi Mata DATE: October 25, 2024 TIME: 8:09 AM CSN: [id number] [facility] 10-25-2024 Note HNO ID: [id number] Author: JEFFRY LOUIS APRN.POKER MANAGER Service: Otolaryngology Author Type: Nurse Practitioner Type: Plan of Care Filed: 10/25/2024 07:30 Note Text: Patient is seen by me in the preoperative holding area for prior to procedure planning. The patient was identified by name and date via wrist band. I introduced myself to the patient and confirmed that they are here for right superficial parotidectomy with Mary Lou Hwang MD Patient voiced no questions or concerns at this time. 11/01/2024 in [facility] with MARY LOU HWANG - Post op Jeffry Louis APRN.POKER MANAGER [facility] 10-18-2024 Note HNO ID: [id number] Author: AARON SCOTT [employer] Tony Service: ? Author Type: Brake Repairer Type: Progress Notes Filed: 10/18/2024 15:02 Note Text: Radiology Service Progress Note PATIENT NAME: Mayi Mata DATE OF SERVICE: October 18, 2024 TIME: 3:02 PM PATIENT IDENTITY VERIFICATION COMPLETED USING TWO (2) IDENTIFIERS: Name and Date of confirmed by patient verbally. FALL SCREENING: Has the patient had 2 falls in the last year or 1 fall with injury or currently using an Ambulatory Assistive Device (Walker, Cane, Wheelchair, Crutches, etc.)? No PATIENT GENDER DATA: Assigned female at . status: : No status: NO. PATIENT RELEVANT IMPLANT DATA REVIEWED: Not Applicable PATIENT PRESENTS WITH AN IMPLANTABLE OR ATTACHED WIRELESS SALES REPRESENTATIVE: No RADIOLOGY DEPARTMENT: Mammography PERIPHERAL IV DATA: Not applicable SIGNED BY: Aaron Scott [place] Tony October 18, 2024 3:02 PM [facility] 10-11-2024 History and physical note Images from the original note were not included. [facility] HISTORY AND PHYSICAL EXAMINATION SERVICE DATE: 10/11/2024 SERVICE TIME: 9:13 AM PRIMARY CARE PHYSICIAN: William Steinberg MD Assessment Patient has the following medical conditions which may affect colette-operative course: PURE HYPERCHOLESTEROLEM Assessment: c/w statin Essential hypertension, benign Assessment: controlled on rx Mild intermittent asthma, uncomplicated Assessment: rx as needed Type 1 diabetes mellitus (HCC) Assessment: follows endo, type 1, insulin pump, reviewed to set to basal rate DOS, pt verbalized understanding. New A1c pending Hemoglobin A1C Date Value 02/14/2024 6.8 12/03/2022 8.2 % 08/27/2019 7.5 % Alcohol abuse Assessment: denies any current daily ETOH Albumin (g/dL) Date Value 03/21/2023 4.4 Bilirubin, Total (mg/dL) Date Value 03/21/2023 0.6 Bilirubin, Direct (mg/dL) Date Value 03/21/2023 0.2 (H) Alkaline Phosphatase (U/L) Date Value 03/21/2023 85 AST (U/L) Date Value 03/21/2023 22 ALT (U/L) Date Value 03/21/2023 16 Protein, Total (g/dL) Date Value 03/21/2023 6.9 Anxiety and depression Assessment: stable on rx per pt Hypothyroidism Assessment: stable on rx per pt TSH Date Value Ref Range Status 03/21/2023 2.750 0.270 - 4.200 mIU/L Final Current smoker Assessment: 0.25-0.5ppd, denies COPD GERD (gastroesophageal reflux disease) Assessment: rx as needed ANESTHESIA FINDINGS: Intubation History: No history of difficult intubation Significant Anesthesia Considerations: none Airway History: No history of difficult airway [place] Activity Status Index: METS: Climb a flight of stairs or walk up a hill (5.50 METs) DASI Score: 5.5 Patient denies any chest pain or undue shortness of breath with the above physical activity. Clinical Frailty Scale: 3. Well, with treated comorbid disease STOP-Bang Score: Has or is being treated for high blood pressure Patient over 50 years old Denies snoring loudly Denies feeling tired, fatigued, or sleepy during the daytime Has not been observed to stop breathing or choking/gasping during sleep BMI less than or equal to 35 kg/m^2 Does not have a large neck Non-male patient STOP-Bang Score: 2 [id number] Score: Age: <65 Sex: female CHF history: No Hypertension history: Yes Stroke/TIA/thromboembolism history: No Vascular disease history: No Diabetes history: Yes [id number] Score: 3 ARISCAT Score: Age: 51-80 Preoperative SpO2: >=96% Respiratory infection in the last month: No Preoperative anemia: No Surgical incision: peripheral Duration of surgery: >3 hrs Emergency procedure: No ARISCAT Score: 26 I - PHYSICAL EVALUATION AIRWAY Patient intubated: No. Tracheostomy tube not present Mallampati: III. TM distance: >3 FB. Neck ROM: full ROM without neurological symptoms. Mouth opening: adequate. Short neck: no. Thick neck: no Reilly present: no Lip Bite Test: I Microretrognathia/Micronagthia/Rec essed Chin: No DENTAL Dental findings: teeth intact. Additional comments: +crowns/back. II - ANESTHESIA PLAN Anesthetic Plan: other Beta Meg Monitoring Plan Post Procedure Analgesic Plan Prepared for Surgery: optimally prepared for surgery, pending [see comment]. labs CONSULTS: Patient does not require consults for optimization at this time Planned Anesthetic: other anesthesia choice The Following Tests/Procedures Have Been Initiated: No orders of the defined types were placed in this encounter. REASON FOR VISIT: Mayi Mata is a 59 year old female who is scheduled for Procedure(s): PAROTIDECTOMY (Right) at the request of Dr. Mary Lou Hwang for consultation. My final recommendation will be communicated back to the requesting physician by way of shared medical record or letter. Subjective The patient has the following: COVID-19 Immunization Status Completed or No Longer Recommended Covid-19 Vaccine (Series Information) Completed 04/04/2024 Imm Admin: COVID-19 vaccine, age 12+ yr (PFIZER-BIONTECH COMIRNATY) 05/22/2023 Imm Admin: COVID-19 vaccine, age 12+ yr (PFIZER-BIONTECH COMIRNATY) 03/24/2023 Postponed until 03/24/2024 by William Steinberg MD (Declined at this time) Only the first 3 history entries have been loaded, but more history exists. CHIEF COMPLAINT: Pre-op exam HPI: Mayi Mata is a 59 year old seen for PAC due to scheduled above surgery because of right parotid mass. 10/03/2024, Dr. Mary Lou Hwang History: Mayi Mata, a 59 year old female - IDDM - on pump, presents for f/up R parotid mass, noted 2 mos ago. No pain or change. FNA 09/25/24: neg for malig cells, limited cellularity, cyst contents and rare oncocytes. Suggestive of warthins. CT neck 09/21/24: 13 x 10 x 15 mm R parotid mass. Denies difficulty swallowing solids and liquids, pain with swallowing, hoarseness, shortness of breath, cough, hemoptysis, ear pain, throat clearing, post-nasal drip, fever, chills, weight loss. No history of thyroid disease/surgery. No history of trauma. smoke 1/3 ppd. Off alcohol. REVIEW OF SYSTEMS: General: No weight loss, malaise or fevers. Neurological: No history of TIA's, stroke, FIRST AID NURSE tumor, impaired sensorium, hemiplegia, paraplegia or quadraplegia. No neurological symptoms or problems. Respiratory: Positive for: tobacco use (0.25ppd). Negative for: asthma, COPD, current cough, dyspnea, pneumonia within 6 weeks, URI < 2 weeks and obstructive sleep apnea. Cardiovascular: Positive for: hyperlipidemia and hypertension (on rx) Negative for: abdominal aortic aneurysm, AICD/PPM, angina, anticoagulation therapy, arrhythmia, atrial fibrillation, CAD, chest pain, CHF, congenital heart defect, DVT/PE, recent SD, murmur/valvular heart disease, PTCA, PVD, open heart surgery and valve surgery. GI: Positive for: GERD (rx as needed) Negative for: abdominal pain, dysphagia, hepatitis, irritable bowel syndrome, inflammatory bowel disease, liver disease, nausea, pancreatitis, vomiting and ETOH >2 drinks/day. : No history of dysuria, frequency or incontinence, stones or chronic kidney disease. No difficulty urinating, nocturia > 1 time per night or hematuria. TRANSPORT AIRCREWMAN: Negative for abnormal vaginal bleeding, abnormal vaginal discharge. Endocrine: Positive for: diabetes mellitus (type 1) and hypothyroidism (on rx). Patient's diabetes mellitus is controlled by insulin and weekly injectable. Hematology: Positive for: chronic anti-coagulation/platelet meds. Patient is on anti-coagulation/platelet medication(s): Aspirin. Negative for: anemia, bruises/bleeds easily and transfusion of at least 4 units within 72 hours prior to surgery. Oncology: No history of CA metastasis, chemo within 30 days, or radiotherapy within 90 days. No history of oncological symptoms or problems. Psych: Positive for: anxiety and depression. Negative for: Marijuana Use. Musculoskeletal: Negative for joint pain or swelling, back pain or muscle pain. Skin: Negative for lesions, rash and itching. Implanted Devices: No implanted devices. 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 Infertility, female Other acne Other vitamin B12 deficiency anemia Snoring Type I (juvenile type) diabetes mellitus without mention of complication, not stated as uncontrolled (HCC) Unspecified asthma, with status asthmaticus Unspecified hypothyroidism PAST SURGICAL HISTORY Procedure Laterality Date APPENDECTOMY COLONOSCOPY 07/12/2016 Repeat colonoscopy 2018 COLONOSCOPY SCREENING 07/13/2021 OOPHORECTOMY PARTIAL/TOTAL UNI/BI 03/2007 right oophorectomy PAST SURGICAL HISTORY OF LAPAROSCOPY TOTAL ABDOMINAL HYSTERECT W/WO RMVL TUBE OVARY 03/2007 Hysterectomy, IVY FAMILY HISTORY Problem Relation Age of Onset No Known Problems Mother other (RENAL CANCER) Father other (Brain Tumors) Sister other (Giallan barrette Syndrome) Sister Colon Cancer Maternal Grandmother and maternal grandfather No Known Problems Maternal Grandfather No Known Problems Paternal Grandmother No Known Problems Paternal Grandfather Social History Tobacco Use Smoking status: Every Day Current packs/day: 0.50 Types: Cigarettes Smokeless tobacco: Never Tobacco comments: seldom Vaping Use Vaping status: Never Used Substance Use Topics Alcohol use: Not Currently Drug use: No Prior to Admission medications as of 10/11/24 0817 Medication Sig Last Dose Taking escitalopram oxalate (LEXAPRO) 10 mg tablet Take 1 tablet by mouth once daily. Yes cyanocobalamin 1,000 mcg/mL Inject 1 mL subcutaneously once every month. Yes trimethoprim-polymyxin (POLYTRIM) 10,000 unit- 1 mg/mL ophthalmic solution Use 1 Drop in the right eye four times daily. Yes WEGOVY 0.25 mg/0.5 mL pen injector inject 1 syringe subcutaneously once weekly Yes fluticasone-salmeterol (ADVAIR DISKUS) 500-50 mcg/dose dsdv Inhale 1 Puff as instructed two times a day. Rinse mouth after use. Yes lansoprazole (PREVACID) 30 mg capsule TAKE NECESSARY Yes naproxen (NAPROSYN) 500 mg tablet Take 1 tablet by mouth two times a day as needed (for pain/inflammation). Take with food. Yes estradiol (E2) emollient cream 0.2 mg/gram (CPD) Insert fingertip amount vaginally every other day at bedtime Yes hydroCHLOROthiazide 25 mg tablet Take 25 mg by mouth once daily. Yes latanoprost (XALATAN) 0.005 % ophthalmic solution Yes multivitamin tablet Take 1 tablet by mouth once daily. Yes Insulin Syringe-Needle U-100 (BD INSULIN SYRINGE) 1 mL 25 x 1 syrg Use one a month for b12 injections Yes levothyroxine (SYNTHROID) 112 mcg tablet Take 1 tablet by mouth daily before breakfast. Yes lisinopril (ZESTRIL, PRINIVIL) 40 mg tablet Take 1 tablet by mouth once daily. Yes albuterol HFA (PROVENTIL HFA, VENTOLIN HFA) 90 mcg/actuation inhaler Inhale 2 Puffs as instructed every 4 hours as needed for Wheezing/Shortness of Breath. Yes COMPOUNDED PRESCRIPTION 3cc syringe and 25g 1 needle for B12 injections. Yes Lovastatin 40 mg tablet Take 1 tablet by mouth twice daily. Yes insulin aspart (NOVOLOG) 100 unit/mL soln use as directed in insulin pump up to 50 units daily Yes blood sugar diagnostic (ONETOUCH ULTRA TEST) test strip CHECK BLOOD SUGARS 8 TIMES DAILY Yes COMPOUNDED PRESCRIPTION Metronic Minimed Insulin Pump Supples And life scan testing supplies use as directed Yes Lancets Misc lancets testing 8 times daily Yes BD ULTRA FINE LANCETS use as directed Yes ASPIRIN 81 MG ORAL TAB Take one(1) tablet daily. Yes No medication comments found. ALLERGIES Allergen Reactions Sertraline Diarrhea Objective PHYSICAL EXAM: General: alert and oriented (x3) and healthy appearance. Pertinent negatives noted - not distressed. Skin: normal color, no rash or lesions. HEENT: EOM intact and pupils equal round. Pertinent negatives noted - no carotid bruit. Cardiovascular: regular rate and rhythm, normal S1 and S2, no rub, murmurs, or gallop. Respiratory: normal breath sounds, no wheezes or crackles. No chest wall deformity or tenderness. Abdomen: soft. Pertinent negatives noted - not tender. Extremities: no deformity, no edema or tenderness, no joint swelling or clubbing. Neurological: normal cognition and motor skills. Gait normal. No weakness or sensory deficit. PAIN ASSESSMENT: VITALS: BP 98/60 Pulse 96 Temp (Src) 97.8 (Temporal) Resp 12 Ht 5' 4 (1.63m) Wt 144 lb (65.3kg) SpO2 100% LMP 01/13/2007 BMI 24.71 kg/(m^2). Diagnostic tests reviewed for today's visit: Lab Value Units Date High Low HB 11.6 g/dL 10/11/2024 15.5 11.5 HCT 33.6 % 10/11/2024 46.0 36.0 WBC 8.88 k/uL 10/11/2024 11.00 3.70 PLT 328 k/uL 10/11/2024 400 150 NA 133 mmol/L 09/18/2024 144 136 K 4.7 mmol/L 09/18/2024 5.1 3.7 GLUC 286 mg/dL 09/18/2024 99 74 BUN 11 mg/dL 09/18/2024 21 7 CREAT 0.97 mg/dL 09/18/2024 0.96 0.58 PTSEC No results within date range. INR No results within date range. APTT No results within date range. ALT No results within date range. AST No results within date range. TBILI No results within date range. TSH No results within date range. Lab Value Units Date High Low HCGQT No results within date range. UHCG No results within date range. HCG, BODY* No results within date range. Lab Value Units Date High Low ABORHD No results within date range. ABSCREEN No results within date range. Hemoglobin A1C Date Value 02/14/2024 6.8 12/03/2022 8.2 % 02/11/2022 7.7 08/26/2020 7.1 08/27/2019 7.5 % 08/26/2018 7.4 03/22/2017 7.5 % 12/10/2016 7.7 % 05/14/2016 8.1 % 10/04/2015 8.7 % No results found for this or any previous visit (from the past 8760 hours). No results found for this or any previous visit (from the past 75877 hours). Instructions Given to Patient: Instructions located in the after visit summary. Patient given verbal and written preop instructions and voices comprehension and compliance. SIGNATURE: Jamison Baca APRN.CNP PATIENT NAME: Mayi Mata DATE: October 11, 2024 TIME: 8:22 AM PAGER/CONTACT #: [facility] 10-11-2024 History and physical note Images from the original note were not included. [facility] HISTORY AND PHYSICAL EXAMINATION SERVICE DATE: 10/11/2024 SERVICE TIME: 9:13 AM PRIMARY CARE PHYSICIAN: William Steinberg MD Assessment Patient has the following medical conditions which may affect colette-operative course: PURE HYPERCHOLESTEROLEM Assessment: c/w statin Essential hypertension, benign Assessment: controlled on rx Mild intermittent asthma, uncomplicated Assessment: rx as needed Type 1 diabetes mellitus (HCC) Assessment: follows endo, type 1, insulin pump, reviewed to set to basal rate DOS, pt verbalized understanding. New A1c pending Hemoglobin A1C Date Value 02/14/2024 6.8 12/03/2022 8.2 % 08/27/2019 7.5 % Alcohol abuse Assessment: denies any current daily ETOH Albumin (g/dL) Date Value 03/21/2023 4.4 Bilirubin, Total (mg/dL) Date Value 03/21/2023 0.6 Bilirubin, Direct (mg/dL) Date Value 03/21/2023 0.2 (H) Alkaline Phosphatase (U/L) Date Value 03/21/2023 85 AST (U/L) Date Value 03/21/2023 22 ALT (U/L) Date Value 03/21/2023 16 Protein, Total (g/dL) Date Value 03/21/2023 6.9 Anxiety and depression Assessment: stable on rx per pt Hypothyroidism Assessment: stable on rx per pt TSH Date Value Ref Range Status 03/21/2023 2.750 0.270 - 4.200 mIU/L Final Current smoker Assessment: 0.25-0.5ppd, denies COPD GERD (gastroesophageal reflux disease) Assessment: rx as needed ANESTHESIA FINDINGS: Intubation History: No history of difficult intubation Significant Anesthesia Considerations: none Airway History: No history of difficult airway [place] Activity Status Index: METS: Climb a flight of stairs or walk up a hill (5.50 METs) DASI Score: 5.5 Patient denies any chest pain or undue shortness of breath with the above physical activity. Clinical Frailty Scale: 3. Well, with treated comorbid disease STOP-Bang Score: Has or is being treated for high blood pressure Patient over 50 years old Denies snoring loudly Denies feeling tired, fatigued, or sleepy during the daytime Has not been observed to stop breathing or choking/gasping during sleep BMI less than or equal to 35 kg/m^2 Does not have a large neck Non-male patient STOP-Bang Score: 2 [id number] Score: Age: <65 Sex: female CHF history: No Hypertension history: Yes Stroke/TIA/thromboembolism history: No Vascular disease history: No Diabetes history: Yes [id number] Score: 3 ARISCAT Score: Age: 51-80 Preoperative SpO2: >=96% Respiratory infection in the last month: No Preoperative anemia: No Surgical incision: peripheral Duration of surgery: >3 hrs Emergency procedure: No ARISCAT Score: 26 I - PHYSICAL EVALUATION AIRWAY Patient intubated: No. Tracheostomy tube not present Mallampati: III. TM distance: >3 FB. Neck ROM: full ROM without neurological symptoms. Mouth opening: adequate. Short neck: no. Thick neck: no Reilly present: no Lip Bite Test: I Microretrognathia/Micronagthia/Rec essed Chin: No DENTAL Dental findings: teeth intact. Additional comments: +crowns/back. II - ANESTHESIA PLAN Anesthetic Plan: other Beta Meg Monitoring Plan Post Procedure Analgesic Plan Prepared for Surgery: optimally prepared for surgery, pending [see comment]. labs CONSULTS: Patient does not require consults for optimization at this time Planned Anesthetic: other anesthesia choice The Following Tests/Procedures Have Been Initiated: No orders of the defined types were placed in this encounter. REASON FOR VISIT: Mayi Mata is a 59 year old female who is scheduled for Procedure(s): PAROTIDECTOMY (Right) at the request of Dr. Mary Lou Hwang for consultation. My final recommendation will be communicated back to the requesting physician by way of shared medical record or letter. Subjective The patient has the following: COVID-19 Immunization Status Completed or No Longer Recommended Covid-19 Vaccine (Series Information) Completed 04/04/2024 Imm Admin: COVID-19 vaccine, age 12+ yr (PFIZER-BIONTECH COMIRNATY) 05/22/2023 Imm Admin: COVID-19 vaccine, age 12+ yr (PFIZER-BIONTECH COMIRNATY) 03/24/2023 Postponed until 03/24/2024 by William Steinberg MD (Declined at this time) Only the first 3 history entries have been loaded, but more history exists. CHIEF COMPLAINT: Pre-op exam HPI: Mayi Mata is a 59 year old seen for PAC due to scheduled above surgery because of right parotid mass. 10/03/2024, Dr. Mary Lou Hwang History: Mayi Mata, a 59 year old female - IDDM - on pump, presents for f/up R parotid mass, noted 2 mos ago. No pain or change. FNA 09/25/24: neg for malig cells, limited cellularity, cyst contents and rare oncocytes. Suggestive of warthins. CT neck 09/21/24: 13 x 10 x 15 mm R parotid mass. Denies difficulty swallowing solids and liquids, pain with swallowing, hoarseness, shortness of breath, cough, hemoptysis, ear pain, throat clearing, post-nasal drip, fever, chills, weight loss. No history of thyroid disease/surgery. No history of trauma. smoke 1/3 ppd. Off alcohol. REVIEW OF SYSTEMS: General: No weight loss, malaise or fevers. Neurological: No history of TIA's, stroke, FIRST AID NURSE tumor, impaired sensorium, hemiplegia, paraplegia or quadraplegia. No neurological symptoms or problems. Respiratory: Positive for: tobacco use (0.25ppd). Negative for: asthma, COPD, current cough, dyspnea, pneumonia within 6 weeks, URI < 2 weeks and obstructive sleep apnea. Cardiovascular: Positive for: hyperlipidemia and hypertension (on rx) Negative for: abdominal aortic aneurysm, AICD/PPM, angina, anticoagulation therapy, arrhythmia, atrial fibrillation, CAD, chest pain, CHF, congenital heart defect, DVT/PE, recent SD, murmur/valvular heart disease, PTCA, PVD, open heart surgery and valve surgery. GI: Positive for: GERD (rx as needed) Negative for: abdominal pain, dysphagia, hepatitis, irritable bowel syndrome, inflammatory bowel disease, liver disease, nausea, pancreatitis, vomiting and ETOH >2 drinks/day. : No history of dysuria, frequency or incontinence, stones or chronic kidney disease. No difficulty urinating, nocturia > 1 time per night or hematuria. TRANSPORT AIRCREWMAN: Negative for abnormal vaginal bleeding, abnormal vaginal discharge. Endocrine: Positive for: diabetes mellitus (type 1) and hypothyroidism (on rx). Patient's diabetes mellitus is controlled by insulin and weekly injectable. Hematology: Positive for: chronic anti-coagulation/platelet meds. Patient is on anti-coagulation/platelet medication(s): Aspirin. Negative for: anemia, bruises/bleeds easily and transfusion of at least 4 units within 72 hours prior to surgery. Oncology: No history of CA metastasis, chemo within 30 days, or radiotherapy within 90 days. No history of oncological symptoms or problems. Psych: Positive for: anxiety and depression. Negative for: Marijuana Use. Musculoskeletal: Negative for joint pain or swelling, back pain or muscle pain. Skin: Negative for lesions, rash and itching. Implanted Devices: No implanted devices. 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 Infertility, female Other acne Other vitamin B12 deficiency anemia Snoring Type I (juvenile type) diabetes mellitus without mention of complication, not stated as uncontrolled (HCC) Unspecified asthma, with status asthmaticus Unspecified hypothyroidism PAST SURGICAL HISTORY Procedure Laterality Date APPENDECTOMY COLONOSCOPY 07/12/2016 Repeat colonoscopy 2018 COLONOSCOPY SCREENING 07/13/2021 OOPHORECTOMY PARTIAL/TOTAL UNI/BI 03/2007 right oophorectomy PAST SURGICAL HISTORY OF LAPAROSCOPY TOTAL ABDOMINAL HYSTERECT W/WO RMVL TUBE OVARY 03/2007 Hysterectomy, IVY FAMILY HISTORY Problem Relation Age of Onset No Known Problems Mother other (RENAL CANCER) Father other (Brain Tumors) Sister other (Giallan barrette Syndrome) Sister Colon Cancer Maternal Grandmother and maternal grandfather No Known Problems Maternal Grandfather No Known Problems Paternal Grandmother No Known Problems Paternal Grandfather Social History Tobacco Use Smoking status: Every Day Current packs/day: 0.50 Types: Cigarettes Smokeless tobacco: Never Tobacco comments: seldom Vaping Use Vaping status: Never Used Substance Use Topics Alcohol use: Not Currently Drug use: No Prior to Admission medications as of 10/11/24 0817 Medication Sig Last Dose Taking escitalopram oxalate (LEXAPRO) 10 mg tablet Take 1 tablet by mouth once daily. Yes cyanocobalamin 1,000 mcg/mL Inject 1 mL subcutaneously once every month. Yes trimethoprim-polymyxin (POLYTRIM) 10,000 unit- 1 mg/mL ophthalmic solution Use 1 Drop in the right eye four times daily. Yes WEGOVY 0.25 mg/0.5 mL pen injector inject 1 syringe subcutaneously once weekly Yes fluticasone-salmeterol (ADVAIR DISKUS) 500-50 mcg/dose dsdv Inhale 1 Puff as instructed two times a day. Rinse mouth after use. Yes lansoprazole (PREVACID) 30 mg capsule TAKE NECESSARY Yes naproxen (NAPROSYN) 500 mg tablet Take 1 tablet by mouth two times a day as needed (for pain/inflammation). Take with food. Yes estradiol (E2) emollient cream 0.2 mg/gram (CPD) Insert fingertip amount vaginally every other day at bedtime Yes hydroCHLOROthiazide 25 mg tablet Take 25 mg by mouth once daily. Yes latanoprost (XALATAN) 0.005 % ophthalmic solution Yes multivitamin tablet Take 1 tablet by mouth once daily. Yes Insulin Syringe-Needle U-100 (BD INSULIN SYRINGE) 1 mL 25 x 1 syrg Use one a month for b12 injections Yes levothyroxine (SYNTHROID) 112 mcg tablet Take 1 tablet by mouth daily before breakfast. Yes lisinopril (ZESTRIL, PRINIVIL) 40 mg tablet Take 1 tablet by mouth once daily. Yes albuterol HFA (PROVENTIL HFA, VENTOLIN HFA) 90 mcg/actuation inhaler Inhale 2 Puffs as instructed every 4 hours as needed for Wheezing/Shortness of Breath. Yes COMPOUNDED PRESCRIPTION 3cc syringe and 25g 1 needle for B12 injections. Yes Lovastatin 40 mg tablet Take 1 tablet by mouth twice daily. Yes insulin aspart (NOVOLOG) 100 unit/mL soln use as directed in insulin pump up to 50 units daily Yes blood sugar diagnostic (ONETOUCH ULTRA TEST) test strip CHECK BLOOD SUGARS 8 TIMES DAILY Yes COMPOUNDED PRESCRIPTION Metronic Minimed Insulin Pump Supples And life scan testing supplies use as directed Yes Lancets Misc lancets testing 8 times daily Yes BD ULTRA FINE LANCETS use as directed Yes ASPIRIN 81 MG ORAL TAB Take one(1) tablet daily. Yes No medication comments found. ALLERGIES Allergen Reactions Sertraline Diarrhea Objective PHYSICAL EXAM: General: alert and oriented (x3) and healthy appearance. Pertinent negatives noted - not distressed. Skin: normal color, no rash or lesions. HEENT: EOM intact and pupils equal round. Pertinent negatives noted - no carotid bruit. Cardiovascular: regular rate and rhythm, normal S1 and S2, no rub, murmurs, or gallop. Respiratory: normal breath sounds, no wheezes or crackles. No chest wall deformity or tenderness. Abdomen: soft. Pertinent negatives noted - not tender. Extremities: no deformity, no edema or tenderness, no joint swelling or clubbing. Neurological: normal cognition and motor skills. Gait normal. No weakness or sensory deficit. PAIN ASSESSMENT: VITALS: BP 98/60 Pulse 96 Temp (Src) 97.8 (Temporal) Resp 12 Ht 5' 4 (1.63m) Wt 144 lb (65.3kg) SpO2 100% LMP 01/13/2007 BMI 24.71 kg/(m^2). Diagnostic tests reviewed for today's visit: Lab Value Units Date High Low HB 11.6 g/dL 10/11/2024 15.5 11.5 HCT 33.6 % 10/11/2024 46.0 36.0 WBC 8.88 k/uL 10/11/2024 11.00 3.70 PLT 328 k/uL 10/11/2024 400 150 NA 133 mmol/L 09/18/2024 144 136 K 4.7 mmol/L 09/18/2024 5.1 3.7 GLUC 286 mg/dL 09/18/2024 99 74 BUN 11 mg/dL 09/18/2024 21 7 CREAT 0.97 mg/dL 09/18/2024 0.96 0.58 PTSEC No results within date range. INR No results within date range. APTT No results within date range. ALT No results within date range. AST No results within date range. TBILI No results within date range. TSH No results within date range. Lab Value Units Date High Low HCGQT No results within date range. UHCG No results within date range. HCG, BODY* No results within date range. Lab Value Units Date High Low ABORHD No results within date range. ABSCREEN No results within date range. Hemoglobin A1C Date Value 02/14/2024 6.8 12/03/2022 8.2 % 02/11/2022 7.7 08/26/2020 7.1 08/27/2019 7.5 % 08/26/2018 7.4 03/22/2017 7.5 % 12/10/2016 7.7 % 05/14/2016 8.1 % 10/04/2015 8.7 % No results found for this or any previous visit (from the past 8760 hours). No results found for this or any previous visit (from the past 03178 hours). Instructions Given to Patient: Instructions located in the after visit summary. Patient given verbal and written preop instructions and voices comprehension and compliance. SIGNATURE: Jamison Baca APRN.CNP PATIENT NAME: Mayi Mata DATE: October 11, 2024 TIME: 8:22 AM PAGER/CONTACT #: documented in this encounter [facility] 10-11-2024 Instructions Jamison Baca APRN.POKER MANAGER - 10/11/2024 8:21 AM EDT Images from the original note were not included. [facility] PATIENT PREOPERATIVE INSTRUCTIONS Mary Lou Hwang MD has scheduled you for your procedure at this surgery center: [facility]: [phone] --[id number] [address]. Please check in on the 1st floor at registration desk 6. Please read below carefully for your personalized instructions. Dietary Restrictions: - No solid food after midnight. - You may have 12 ounces of clear liquids (water, clear juices such as apple juice or gatorade, carbonated beverages, clear tea, black coffee, jello) until 2 hours before scheduled arrival at facility. No red/purple coloring and no creamer/sugar Medications: Unless instructed differently below, stay on all of your medications until your surgery. If you start any new medications after today's visit, please contact your surgeon. Pre-Surgery Med Instructions Medication Instructions escitalopram oxalate (LEXAPRO) 10 mg tablet If you normally take this medication in the morning, take the morning of surgery. cyanocobalamin 1,000 mcg/mL Hold 7 days before surgery. Last dose 10/17/2024. trimethoprim-polymyxin (POLYTRIM) 10,000 unit- 1 mg/mL ophthalmic solution Do not take the day of surgery WEGOVY 0.25 mg/0.5 mL pen injector Hold 7 days before surgery. Last dose 10/17/2024. fluticasone-salmeterol (ADVAIR DISKUS) 500-50 mcg/dose dsdv If you normally take this medication in the morning, take the morning of surgery. lansoprazole (PREVACID) 30 mg capsule If you normally take this medication in the morning, take the morning of surgery. naproxen (NAPROSYN) 500 mg tablet Hold 7 days before surgery. Last dose 10/17/2024. estradiol (E2) emollient cream 0.2 mg/gram (CPD) Do not take the day of surgery hydroCHLOROthiazide 25 mg tablet Do not take the day of surgery latanoprost (XALATAN) 0.005 % ophthalmic solution If you normally take this medication in the morning, take the morning of surgery. multivitamin tablet Hold 7 days before surgery. Last dose 10/17/2024. Insulin Syringe-Needle U-100 (BD INSULIN SYRINGE) 1 mL 25 x 1 syrg levothyroxine (SYNTHROID) 112 mcg tablet If you normally take this medication in the morning, take the morning of surgery. lisinopril (ZESTRIL, PRINIVIL) 40 mg tablet If you normally take this medication in the morning, take the morning of surgery. albuterol HFA (PROVENTIL HFA, VENTOLIN HFA) 90 mcg/actuation inhaler If you normally take this medication in the morning, take the morning of surgery. COMPOUNDED PRESCRIPTION Lovastatin 40 mg tablet If you normally take this medication in the morning, take the morning of surgery. insulin aspart (NOVOLOG) 100 unit/mL soln Do not take the day of surgery blood sugar diagnostic (ONETOUCH ULTRA TEST) test strip COMPOUNDED PRESCRIPTION Lancets Misc lancets BD ULTRA FINE LANCETS ASPIRIN 81 MG ORAL TAB Hold 7 days before surgery. Last dose 10/17/2024. If you start any new medications after today's visit, please contact the surgeon's office. If you are currently using a [id number]-tznc injectable or oral medication for diabetes or weight loss such as Dulaglutide (Trulicity), Exenatide (Byetta, Bydureon), Liraglutide (Victoza, Saxenda), Semaglutide (Ozempic, Wegovy, Rybelsus), or Tirzepatide (Mounjaro), the medicine should be stopped at least 7 days before surgery. These medicines can cause food to remain in your stomach for a very long time and increase the risks from surgery and anesthesia. Not stopping the medication for a long enough time may result in your surgery being rescheduled. Blood Thinning Medications: - Stop NSAIDS (Ibuprofen, Advil, Aleve, Motrin, Celebrex, Mobic, etc.) 7 days before surgery, as directed by your surgeon. - Stop Aspirin 7 days before surgery, as directed by your surgeon. - Stop ALL herbal and dietary supplements 7 days before surgery. - You may take Tylenol (Acetaminophen) or any of your pain medications that do not contain aspirin or NSAIDS as needed. Important Reminders: - Candy, mints, and tobacco products are NOT permitted the morning of surgery. - Hearing aids, dentures and glasses may be worn the morning of surgery. - NO jewelry, body piercings, makeup, hairpins or contacts are to be worn the day of surgery. If you develop symptoms such as a fever, cold, or flu, or have other changes to your health within TWO DAYS of scheduled surgery or the morning of surgery, please contact the surgery center above. Personal Belongings: -Please have photo ID and insurance cards. -If you do not have a copy of advance directives on file with us, please bring a copy with you on the day of surgery. - Leave ALL valuables and money at home or with family members. - Please bring high-quality footwear, such as sneakers, to the hospital for ambulating post-surgery. For Outpatient Procedures: - YOU MUST HAVE A RESPONSIBLE VACUUM CLEANER MECHANIC TAKE YOU HOME. A CLAIM TECHNICIAN OR METAL MOLD DRESSER CANNOT BE MADE A RESPONSIBLE VACUUM CLEANER MECHANIC. - We recommend that a responsible person stays with you overnight to take care of you. - You cannot stay in a hotel alone after outpatient surgery. You will not be permitted to have your surgery, if you do not have someone to take care of you. Arrival Time for Surgery: - The Surgery Center or hospital where you are having surgery will call the afternoon before surgery (or Tuesday for Tuesday surgery) with a scheduled arrival time. - If you have not heard by 4 pm, please contact the surgery center above. Please be aware that emergency situations arise, which may delay or change your surgical time. If this happens, we will notify you as soon as possible and regret any inconvenience. If you already have an Advance Directive, please fax a copy to [phone] or email to for it to be added to your chart. If you do not have an Advance Directive, you can find the appropriate form and more information at [email or web address]. We recommend that you complete the Advance Directive form found on the website and bring it with you the day of your surgery. It can be witnessed and scanned into your chart that day. Jamison Baca APRN.PAM documented in this encounter [facility] 10-09-2024 Note HNO ID: [id number] Author: PEACE CUEVAS APRN.CNM Service: ? Author Type: Audiovisual Tech Type: Progress Notes Filed: 10/09/2024 16:41 Note Text: Mayi is a 59 year old who presents for an annual gynecologic exam without complaints. Postmenopausal: Yes - hysterectomy HRT use: No. 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: 01/13/2007, Hysterectomy Age at Menarche: 13 Age at First : Age at 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 History Comments: Sexual Activity: Yes; Male Contraception: No contraception data on record FAMILY HISTORY Problem Relation Age of Onset No Known Problems Mother other (RENAL CANCER) Father other (Brain Tumors) Sister other (Giallan barrette Syndrome) Sister Colon Cancer Maternal Grandmother and maternal grandfather No Known Problems Maternal Grandfather No Known Problems Paternal Grandmother No Known Problems Paternal Grandfather SOCIAL HISTORY Social History Tobacco Use Smoking status: Every Day Current packs/day: 0.50 Types: Cigarettes Smokeless tobacco: Never Tobacco comments: seldom Vaping Use Vaping status: Never Used Substance Use Topics Alcohol use: Not Currently Drug use: No REVIEW OF SYSTEMS Abdomen: No abdominal pain, nausea, vomiting, diarrhea, or constipation. No bloating, early satiety, indigestion, or increased flatulence. Bladder: No dysuria, gross hematuria, urinary frequency, urinary urgency, or incontinence Breast: No breast lumps, nipple d/c, overlying skin changes, redness or skin retraction Allergies and current medication updated:Yes SENSITIVE EXAM: The sensitive examination was discussed with the Patient or Patient's Authorized Rouge Presser. As applicable, any other physician, advance practice provider, medical student, or other health professional student that will be observing or involved in the sensitive examination for educational or training purposes was discussed with the Patient or Authorized Rouge Presser. The Patient or Authorized Rouge Presser has agreed to proceed with the sensitive examination. (Sensitive examination includes inspection and/or palpation of the breasts, pelvis, prostate and anorectal regions). EXAM: LMP 01/13/2007 BP 110/68 Ht 162.6 cm (5' 4) Wt 65.3 kg (144 lb) LMP 01/13/2007 BMI 24.72 kg/m? GENERAL: pleasant, female in no apparent distress HEENT: Normocephalic, atraumatic, mucus membranes moist, and no lesions NECK: Supple, full range of motion, no adenopathy, and thyroid normal DERMATOLOGY: Normal, without lesions, non-icteric, and non-hirsute BREAST: soft, non-tender, symmetric, no dominant mass, normal nipple-areolar complex, no lymphadenopathy, and no nipple discharge CHEST: Normal inspiratory effort ABDOMEN: soft, non-tender, and no masses PELVIC: external genitalia normal, normal Bartholin's glands, urethra, [place]'s glands, no vulvar lesions, good vaginal support, physiologic discharge present, normal appearing perineal body and perianal region, cervix surgically absent BIMANUAL: no adnexal masses, non-tender, and uterus surgically absent RECTOVAGINAL: deferred. NEURO: alert and oriented x3,exam grossly non-focal EXTREMITIES: normal ASSESSMENT/PLAN: 1. Encounter for gynecological examination with abnormal finding - ICD9: V72.31, ICD10: Z01.411 (primary diagnosis) - Completed pelvic and breast exam - Encouraged monthly BSE - Follow up for annual exam in one year. 2. Encounter for screening mammogram for breast cancer - ICD9: V76.12, ICD10: Z12.31 - Completed pelvic and breast exam - Encouraged monthly BSE - Follow up for annual exam in one year. - SAUNDRA SCREENING W TAMARA 3. Dense breast tissue - ICD9: 793.82, ICD10: R92.30 - SAUNDRA SCREENING W TAMARA 4. Vaginal atrophy - ICD9: 627.3, ICD10: N95.2 -Prescription for compounded vaginal estrogen sent to [facility] retail pharmacy 1) Health maintenance: Pap/HPV screening no longer needed Mammogram ordered Nutrition, exercise and routine health maintenance exams reviewed. Calcium/Vitamin D supplementation information provided. Smoking cessation: Smoking cessation encouraged and resources provided. Benefits of smoking cessation reviewed. Patient encouraged to avoid smoking. Colon cancer screening: up to date with screening TSH/lipids/glucose: followed by PCP Vitamin D: followed by PCP 2) Follow up one year or sooner as needed Peace Cuevas APRN.C (more content not included)... [facility] 10-09-2024 History of Present illness Narrative Mayi is a 59 year old who presents for an annual gynecologic exam without complaints. Postmenopausal: Yes - hysterectomy HRT use: No. 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: 01/13/2007, Hysterectomy Age at Menarche: 13 Age at First : Age at 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 History Comments: Sexual Activity: Yes; Male Contraception: No contraception data on record FAMILY HISTORY Problem Relation Age of Onset No Known Problems Mother other (RENAL CANCER) Father other (Brain Tumors) Sister other (Giallan barrette Syndrome) Sister Colon Cancer Maternal Grandmother and maternal grandfather No Known Problems Maternal Grandfather No Known Problems Paternal Grandmother No Known Problems Paternal Grandfather SOCIAL HISTORY Social History Tobacco Use Smoking status: Every Day Current packs/day: 0.50 Types: Cigarettes Smokeless tobacco: Never Tobacco comments: seldom Vaping Use Vaping status: Never Used Substance Use Topics Alcohol use: Not Currently Drug use: No REVIEW OF SYSTEMS Abdomen: No abdominal pain, nausea, vomiting, diarrhea, or constipation. No bloating, early satiety, indigestion, or increased flatulence. Bladder: No dysuria, gross hematuria, urinary frequency, urinary urgency, or incontinence Breast: No breast lumps, nipple d/c, overlying skin changes, redness or skin retraction Allergies and current medication updated:Yes SENSITIVE EXAM: The sensitive examination was discussed with the Patient or Patient's Authorized Rouge Presser. As applicable, any other physician, advance practice provider, medical student, or other health professional student that will be observing or involved in the sensitive examination for educational or training purposes was discussed with the Patient or Authorized Rouge Presser. The Patient or Authorized Rouge Presser has agreed to proceed with the sensitive examination. (Sensitive examination includes inspection and/or palpation of the breasts, pelvis, prostate and anorectal regions). EXAM: LMP 01/13/2007 BP 110/68 Ht 162.6 cm (5' 4) Wt 65.3 kg (144 lb) LMP 01/13/2007 BMI 24.72 kg/m GENERAL: pleasant, female in no apparent distress HEENT: Normocephalic, atraumatic, mucus membranes moist, and no lesions NECK: Supple, full range of motion, no adenopathy, and thyroid normal DERMATOLOGY: Normal, without lesions, non-icteric, and non-hirsute BREAST: soft, non-tender, symmetric, no dominant mass, normal nipple-areolar complex, no lymphadenopathy, and no nipple discharge CHEST: Normal inspiratory effort ABDOMEN: soft, non-tender, and no masses PELVIC: external genitalia normal, normal Bartholin's glands, urethra, [place]'s glands, no vulvar lesions, good vaginal support, physiologic discharge present, normal appearing perineal body and perianal region, cervix surgically absent BIMANUAL: no adnexal masses, non-tender, and uterus surgically absent RECTOVAGINAL: deferred. NEURO: alert and oriented x3,exam grossly non-focal EXTREMITIES: normal ASSESSMENT/PLAN: 1. Encounter for gynecological examination with abnormal finding - ICD9: V72.31, ICD10: Z01.411 (primary diagnosis) - Completed pelvic and breast exam - Encouraged monthly BSE - Follow up for annual exam in one year. 2. Encounter for screening mammogram for breast cancer - ICD9: V76.12, ICD10: Z12.31 - Completed pelvic and breast exam - Encouraged monthly BSE - Follow up for annual exam in one year. - SAUNDRA SCREENING W TAMARA 3. Dense breast tissue - ICD9: 793.82, ICD10: R92.30 - SAUNDRA SCREENING W TAMARA 4. Vaginal atrophy - ICD9: 627.3, ICD10: N95.2 -Prescription for compounded vaginal estrogen sent to [facility] retail pharmacy 1) Health maintenance: Pap/HPV screening no longer needed Mammogram ordered Nutrition, exercise and routine health maintenance exams reviewed. Calcium/Vitamin D supplementation information provided. Smoking cessation: Smoking cessation encouraged and resources provided. Benefits of smoking cessation reviewed. Patient encouraged to avoid smoking. Colon cancer screening: up to date with screening TSH/lipids/glucose: followed by PCP Vitamin D: followed by PCP 2) Follow up one year or sooner as needed Peace Cuevas APRN.CNM documented in this encounter [facility] 10-03-2024 Note HNO ID: [id number] Author: MARY LOU HWANG MD Service: ? Author Type: Physician Type: Progress Notes Filed: 10/03/2024 14:54 Note Text: History: Mayi Mata, a 59 year old female - IDDM - on pump, presents for f/up R parotid mass, noted 2 mos ago. No pain or change. FNA 09/25/24: neg for malig cells, limited cellularity, cyst contents and rare oncocytes. Suggestive of warthins. CT neck 09/21/24: 13 x 10 x 15 mm R parotid mass. Denies difficulty swallowing solids and liquids, pain with swallowing, hoarseness, shortness of breath, cough, hemoptysis, ear pain, throat clearing, post-nasal drip, fever, chills, weight loss. No history of thyroid disease/surgery. No history of trauma. smoke 1/3 ppd. Off alcohol. PE: Alert; oriented; well-developed; no apparent distress. Normal voice; normal communication. Neck: nontender, 1 cm well circ, relatively immobile mass ant-inf to tip of R mastoid, post to angle of mandible, no other lymphadenopathy or masses. No change. Thyroid: no masses. Face: symmetric, sinuses nontender, skin without lesions. Salivary glands: see neck Assessment/Plan: 13 x 10 x 15 mm R parotid mass. FNA neg for malig cells, limited cellularity, cyst contents and rare oncocytes. Suggestive of warthins. Rec R superficial parotidectomy. The procedure was discussed and the risks were reviewed. The risks include bleeding; infection; facial nerve injury resulting in lip weakness, difficulty raising eyebrow, difficulty closing eye; numbness/hypothesia near or on the ear, Collado's syndrome; sialocele. The patient understands and agrees to proceed. Medical Decision Making: Problems: Low: Acute, uncomplicated illness or injury Risk: Moderate: Decision on minor surgery w/ risk factors Medical Decision Making Level: 3 - Low [facility] 10-03-2024 History of Present illness Narrative History: Mayi Mata, a 59 year old female - IDDM - on pump, presents for f/up R parotid mass, noted 2 mos ago. No pain or change. FNA 09/25/24: neg for malig cells, limited cellularity, cyst contents and rare oncocytes. Suggestive of warthins. CT neck 09/21/24: 13 x 10 x 15 mm R parotid mass. Denies difficulty swallowing solids and liquids, pain with swallowing, hoarseness, shortness of breath, cough, hemoptysis, ear pain, throat clearing, post-nasal drip, fever, chills, weight loss. No history of thyroid disease/surgery. No history of trauma. smoke 1/3 ppd. Off alcohol. PE: Alert; oriented; well-developed; no apparent distress. Normal voice; normal communication. Neck: nontender, 1 cm well circ, relatively immobile mass ant-inf to tip of R mastoid, post to angle of mandible, no other lymphadenopathy or masses. No change. Thyroid: no masses. Face: symmetric, sinuses nontender, skin without lesions. Salivary glands: see neck Assessment/Plan: 13 x 10 x 15 mm R parotid mass. FNA neg for malig cells, limited cellularity, cyst contents and rare oncocytes. Suggestive of warthins. Rec R superficial parotidectomy. The procedure was discussed and the risks were reviewed. The risks include bleeding; infection; facial nerve injury resulting in lip weakness, difficulty raising eyebrow, difficulty closing eye; numbness/hypothesia near or on the ear, Collado's syndrome; sialocele. The patient understands and agrees to proceed. Medical Decision Making: Problems: Low: Acute, uncomplicated illness or injury Risk: Moderate: Decision on minor surgery w/ risk factors Medical Decision Making Level: 3 - Low documented in this encounter [facility] 09-25-2024 Telephone encounter Note Prescription Refill Information The patient has been identified by name and date of : Yes Caregiver verified no other encounters exist for this prescription request: Yes Caregiver confirmed with patient/requestor that no other refills are due, in the near future, with this provider at this time: Yes The last office visit in the department: 09/18/2024 Does the patient have a future office visit with this provider/department: Yes Requested Prescriptions Pending Prescriptions Disp Refills escitalopram oxalate (LEXAPRO) 10 mg tablet 90 tablet 3 Sig: Take 1 tablet by mouth once daily. Trudi Moreno LPN September 25, 2024 10:17 AM [facility] 09-25-2024 Miscellaneous Notes Prescription Refill Information The patient has been identified by name and date of : Yes Caregiver verified no other encounters exist for this prescription request: Yes Caregiver confirmed with patient/requestor that no other refills are due, in the near future, with this provider at this time: Yes The last office visit in the department: 09/18/2024 Does the patient have a future office visit with this provider/department: Yes Requested Prescriptions Pending Prescriptions Disp Refills escitalopram oxalate (LEXAPRO) 10 mg tablet 90 tablet 3 Sig: Take 1 tablet by mouth once daily. Trudi Moreno LPN September 25, 2024 10:17 AM documented in this encounter [facility] 09-25-2024 Note HNO ID: [id number] Author: MARY LOU HWANG MD Service: ? Author Type: Physician Type: Progress Notes Filed: 09/25/2024 08:32 Note Text: History: Mayi Mata is seen at the request of Dr. William Steinberg. Mayi Mata, a 59 year old female - IDDM - on pump, presents for evaluation of R parotid mass, noted 2 mos ago. No pain or change. CT neck 09/21/24: 13 x 10 x 15 mm R parotid mass. Denies difficulty swallowing solids and liquids, pain with swallowing, hoarseness, shortness of breath, cough, hemoptysis, ear pain, throat clearing, post-nasal drip, fever, chills, weight loss. No history of thyroid disease/surgery. No history of trauma. smoke 1/3 ppd. Off alcohol. CBC 09/18/24: HCT 34. ESR 09/18/24: 27. 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 Other acne Other vitamin B12 deficiency anemia Snoring Type I (juvenile type) diabetes mellitus without mention of complication, not stated as uncontrolled (HCC) Unspecified asthma, with status asthmaticus Unspecified hypothyroidism PAST SURGICAL HISTORY Procedure Laterality Date APPENDECTOMY COLONOSCOPY 07/12/2016 Repeat colonoscopy 2018 COLONOSCOPY SCREENING 07/13/2021 OOPHORECTOMY PARTIAL/TOTAL UNI/BI 03/2007 right oophorectomy PAST SURGICAL HISTORY OF LAPAROSCOPY TOTAL ABDOMINAL HYSTERECT W/WO RMVL TUBE OVARY 03/2007 Hysterectomy, IVY PE: Alert; oriented; well-developed; no apparent distress. Normal voice; normal communication. Eyes: EOMI, pupils symmetric and reactive bilaterally. Nose: patent, normal mucosa, no congestion, no rhinorrhea. Oral cavity, oropharynx: No ulcerative or mass lesions, tongue midline, palate elevates symmetrically, tongue base and floor of mouth soft. Neck: nontender, 1 cm well circ, relatively immobile mass ant-inf to tip of R mastoid, post to angle of mandible, no other lymphadenopathy or masses. Thyroid: no masses. Face: symmetric, sinuses nontender, skin without lesions. Salivary glands: see neck Ears: EACs free of lesions. TMs clear and mobile. Neurologic: junior business analyst II-XII grossly intact. Procedure: Flexible laryngoscopy. Indication: Neck mass. R/o pharyngeal/laryngeal lesion. Description of procedure: Neosynephrine/xylocaine was sprayed into the patient's nose. A flexible laryngoscope was passed through the patient's nose. The nasopharynx was free of ulcerative or mass lesions. The hypopharynx was free of ulcerative or mass lesions. The larynx was free of ulcerative or mass lesions. Normal bilateral vocal cord mobility. Assessment/Plan: 13 x 10 x 15 mm R parotid mass. Rec FNA. F/up 1 wk. Likely will benefit from R sup parotid. Procedure: FNA of R parotid mass. Description of procedure: The site was prepped with betadine. A 22-gauge needle was inserted into the mass. Small amount of yellow turbid fluid aspirated. The contents were placed onto slides and cytolyte. No complications. Plan: F/up in 1 week for review of pathology. Procedure: FNA of right parotid mass Informed Consent Consent Obtained: Written [place] Protocol A moment to CARE was completed SIGN IN Sign in communication not applicable due to emergent procedure Personnel directly involved with the procedure wore the appropriate PPE Special Equipment: Yes Patient/Surrogate Stated/Verified: Patient name, Date of , Relevant allergies and Intended procedure TIME OUT Relevant labs, photos, and/or imaging studies have been reviewed. Intended patient and procedure match source documents. Consent obtained and matches the intended procedure Correct side/site marked and visible. No medications required for procedure. No fire risk assessment and interventions applicable. No implant(s) inserted. SIGN OUT All specimens correctly labeled and sent. All instruments, equipment, possible retained foreign bodies accounted for. The post-procedure POC has been communicated to the patient or surrogate. Post-procedure POC communicated to patient's multidisciplinary team (including bedside nurse for hospitalized patients). CC: Maryan Medical Decision Making: Problems: Moderate: New problem with uncertain prognosis Data: Unique test result(s) reviewed: 3+ Risk: Low: Low risk from testing/treatment Medical Decision Making Level: 4 - Moderate [facility] 09-25-2024 History of Present illness Narrative History: Mayi Mata is seen at the request of Dr. William Steinberg. Mayi Mata, a 59 year old female - IDDM - on pump, presents for evaluation of R parotid mass, noted 2 mos ago. No pain or change. CT neck 09/21/24: 13 x 10 x 15 mm R parotid mass. Denies difficulty swallowing solids and liquids, pain with swallowing, hoarseness, shortness of breath, cough, hemoptysis, ear pain, throat clearing, post-nasal drip, fever, chills, weight loss. No history of thyroid disease/surgery. No history of trauma. smoke 1/3 ppd. Off alcohol. CBC 09/18/24: HCT 34. ESR 09/18/24: 27. 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 Other acne Other vitamin B12 deficiency anemia Snoring Type I (juvenile type) diabetes mellitus without mention of complication, not stated as uncontrolled (HCC) Unspecified asthma, with status asthmaticus Unspecified hypothyroidism PAST SURGICAL HISTORY Procedure Laterality Date APPENDECTOMY COLONOSCOPY 07/12/2016 Repeat colonoscopy 2018 COLONOSCOPY SCREENING 07/13/2021 OOPHORECTOMY PARTIAL/TOTAL UNI/BI 03/2007 right oophorectomy PAST SURGICAL HISTORY OF LAPAROSCOPY TOTAL ABDOMINAL HYSTERECT W/WO RMVL TUBE OVARY 03/2007 Hysterectomy, IVY PE: Alert; oriented; well-developed; no apparent distress. Normal voice; normal communication. Eyes: EOMI, pupils symmetric and reactive bilaterally. Nose: patent, normal mucosa, no congestion, no rhinorrhea. Oral cavity, oropharynx: No ulcerative or mass lesions, tongue midline, palate elevates symmetrically, tongue base and floor of mouth soft. Neck: nontender, 1 cm well circ, relatively immobile mass ant-inf to tip of R mastoid, post to angle of mandible, no other lymphadenopathy or masses. Thyroid: no masses. Face: symmetric, sinuses nontender, skin without lesions. Salivary glands: see neck Ears: EACs free of lesions. TMs clear and mobile. Neurologic: junior business analyst II-XII grossly intact. Procedure: Flexible laryngoscopy. Indication: Neck mass. R/o pharyngeal/laryngeal lesion. Description of procedure: Neosynephrine/xylocaine was sprayed into the patient's nose. A flexible laryngoscope was passed through the patient's nose. The nasopharynx was free of ulcerative or mass lesions. The hypopharynx was free of ulcerative or mass lesions. The larynx was free of ulcerative or mass lesions. Normal bilateral vocal cord mobility. Assessment/Plan: 13 x 10 x 15 mm R parotid mass. Rec FNA. F/up 1 wk. Likely will benefit from R sup parotid. Procedure: FNA of R parotid mass. Description of procedure: The site was prepped with betadine. A 22-gauge needle was inserted into the mass. Small amount of yellow turbid fluid aspirated. The contents were placed onto slides and cytolyte. No complications. Plan: F/up in 1 week for review of pathology. Procedure: FNA of right parotid mass Informed Consent Consent Obtained: Written [place] Protocol A moment to CARE was completed SIGN IN Sign in communication not applicable due to emergent procedure Personnel directly involved with the procedure wore the appropriate PPE Special Equipment: Yes Patient/Surrogate Stated/Verified: Patient name, Date of , Relevant allergies and Intended procedure TIME OUT Relevant labs, photos, and/or imaging studies have been reviewed. Intended patient and procedure match source documents. Consent obtained and matches the intended procedure Correct side/site marked and visible. No medications required for procedure. No fire risk assessment and interventions applicable. No implant(s) inserted. SIGN OUT All specimens correctly labeled and sent. All instruments, equipment, possible retained foreign bodies accounted for. The post-procedure POC has been communicated to the patient or surrogate. Post-procedure POC communicated to patient's multidisciplinary team (including bedside nurse for hospitalized patients). CC: Maryan Medical Decision Making: Problems: Moderate: New problem with uncertain prognosis Data: Unique test result(s) reviewed: 3+ Risk: Low: Low risk from testing/treatment Medical Decision Making Level: 4 - Moderate documented in this encounter [facility] 09-21-2024 Telephone encounter Note Spoke with patient and scheduled. Humaira Rehman [facility] 09-21-2024 Miscellaneous Notes Spoke with patient and scheduled. Humaira Rehman Discussed ct findings with patient. Set up with ENT soon documented in this encounter [facility] 09-21-2024 Telephone encounter Note Discussed ct findings with patient. Set up with ENT soon [facility] 09-21-2024 History of Present illness Narrative Radiology Service Progress Note DATE OF SERVICE: September 21, 2024 TIME: 12:23 PM PATIENT IDENTITY VERIFICATION COMPLETED USING TWO (2) STANDARD IDENTIFIERS: Name and Date of confirmed by patient verbally. FALL SCREENING: Has the patient had 2 falls in the last year or 1 fall with injury or currently using an Ambulatory Assistive Device (Walker, Cane, Wheelchair, Crutches, etc.)? No PATIENT GENDER DATA: Assigned female at . status: : No status: NO. PATIENT RELEVANT IMPLANT DATA REVIEWED: Yes PATIENT PRESENTS WITH AN IMPLANTABLE OR ATTACHED WIRELESS SALES REPRESENTATIVE: No ALLERGIES: Reviewed and unchanged CONTRAST ALLERGY: NO. EXAM: CT -CONTRAST INDUCED NEPHROPATHY RISK FACTORS: Patient age > 60 years CREATININE: Creatinine Date Value Ref Range Status 09/18/2024 0.97 (H) 0.58 - 0.96 mg/dL Final 03/21/2023 0.68 0.58 - 0.96 mg/dL Final 02/19/2023 0.85 0.58 - 0.96 mg/dL Final Estimated Glomerular Filtration Rate Date Value Ref Range Status 09/18/2024 67 >=60 mL/min/1.73m Final Comment: Estimated Glomerular Filtration Rate (eGFR) is calculated using the 2020 CKD-EPI creatinine equation. This equation utilizes serum creatinine, sex, and age as parameters. The creatinine assay has traceable calibration to isotope dilution-mass spectrometry. Refer to KDIGO guidelines for clinical interpretation. In patients with unstable renal function, e.g. those with acute kidney injury, the eGFR may not accurately reflect actual GFR. eGFR- Date Value Ref Range Status 08/27/2019 >60 Final P.O.C.T. RESULTS: POC done: Yes, See Lab Tab September 21, 2024 TREATMENT: N/A PERIPHERAL IV DATA: Ambulatory: A peripheral IV was started in the Left antecubital site with a Angio cath: 22 gauge. RADIOLOGY DEPARTMENT: CT; Exam(s) Completed: Neck SIGNATURE: RT Pa(Esmer) PATIENT NAME: Mayi Mata DATE: September 21, 2024 TIME: 12:23 PM documented in this encounter [facility] 09-21-2024 Note HNO ID: [id number] Author: ERIN BLANCHARD RT(R) Service: ? Author Type: Brake Repairer Type: Progress Notes Filed: 09/21/2024 12:24 Note Text: Radiology Service Progress Note DATE OF SERVICE: September 21, 2024 TIME: 12:23 PM PATIENT IDENTITY VERIFICATION COMPLETED USING TWO (2) STANDARD IDENTIFIERS: Name and Date of confirmed by patient verbally. FALL SCREENING: Has the patient had 2 falls in the last year or 1 fall with injury or currently using an Ambulatory Assistive Device (Walker, Cane, Wheelchair, Crutches, etc.)? No PATIENT GENDER DATA: Assigned female at . status: : No status: NO. PATIENT RELEVANT IMPLANT DATA REVIEWED: Yes PATIENT PRESENTS WITH AN IMPLANTABLE OR ATTACHED WIRELESS SALES REPRESENTATIVE: No ALLERGIES: Reviewed and unchanged CONTRAST ALLERGY: NO. EXAM: CT -CONTRAST INDUCED NEPHROPATHY RISK FACTORS: Patient age > 60 years CREATININE: Creatinine Date Value Ref Range Status 09/18/2024 0.97 (H) 0.58 - 0.96 mg/dL Final 03/21/2023 0.68 0.58 - 0.96 mg/dL Final 02/19/2023 0.85 0.58 - 0.96 mg/dL Final Estimated Glomerular Filtration Rate Date Value Ref Range Status 09/18/2024 67 >=60 mL/min/1.73m? Final Comment: Estimated Glomerular Filtration Rate (eGFR) is calculated using the 2020 CKD-EPI creatinine equation. This equation utilizes serum creatinine, sex, and age as parameters. The creatinine assay has traceable calibration to isotope dilution-mass spectrometry. Refer to KDIGO guidelines for clinical interpretation. In patients with unstable renal function, e.g. those with acute kidney injury, the eGFR may not accurately reflect actual GFR. eGFR- Date Value Ref Range Status 08/27/2019 >60 Final P.O.C.T. RESULTS: POC done: Yes, See Lab Tab September 21, 2024 TREATMENT: N/A PERIPHERAL IV DATA: Ambulatory: A peripheral IV was started in the Left antecubital site with a Angio cath: 22 gauge. RADIOLOGY DEPARTMENT: CT; Exam(s) Completed: Neck SIGNATURE: RT Pa(R) PATIENT NAME: Mayi Mata DATE: September 21, 2024 TIME: 12:23 PM [facility] 09-20-2024 Telephone encounter Note Pt returned call and given provider's message below with verbalized understanding. Pt agreeable. [facility] 09-20-2024 Miscellaneous Notes Pt returned call and given provider's message below with verbalized understanding. Pt agreeable. Message left for return call. Kymberly Stein MA Sodium is slightly low but not bad. Sed rate is significantly high. Is mildly anemic. Recheck labs in one week including ifobt. documented in this encounter [facility] 09-19-2024 Telephone encounter Note Message left for return call. Kymberly Steni MA [facility] 09-19-2024 Telephone encounter Note Sodium is slightly low but not bad. Sed rate is significantly high. Is mildly anemic. Recheck labs in one week including ifobt. [facility] 09-18-2024 Note HNO ID: [id number] Author: WILLIAM STEINBERG MD Service: ? Author Type: Physician Type: Progress Notes Filed: 09/18/2024 14:48 Note Text: Patient presents with: Lump HPI: Patient presents today for office visit for lump behind right ear. Noticed lump behind her right ear about 2-3 months ago. Has not changed in size. Sometimes it's sore. No drainage. No fevers. No lumps or bumps elsewhere. No ear pain. No rashes or sore throat. Still seeing Dr Engel. MEDICATIONS: Current Outpatient Medications Medication Sig cyanocobalamin 1,000 mcg/mL Inject 1 mL subcutaneously once every month. trimethoprim-polymyxin (POLYTRIM) 10,000 unit- 1 mg/mL ophthalmic solution Use 1 Drop in the right eye four times daily. WEGOVY 0.25 mg/0.5 mL pen injector inject 1 syringe subcutaneously once weekly fluticasone-salmeterol (ADVAIR DISKUS) 500-50 mcg/dose dsdv Inhale 1 Puff as instructed two times a day. Rinse mouth after use. lansoprazole (PREVACID) 30 mg capsule TAKE NECESSARY escitalopram oxalate (LEXAPRO) 10 mg tablet Take 1 tablet by mouth once daily. estradiol 0.01% estriol 0.01% cream (CPD) Use vaginally two times a week. naproxen (NAPROSYN) 500 mg tablet Take 1 tablet by mouth two times a day as needed (for pain/inflammation). Take with food. hydroCHLOROthiazide 25 mg tablet Take 25 mg by mouth once daily. latanoprost (XALATAN) 0.005 % ophthalmic solution multivitamin tablet Take 1 tablet by mouth once daily. Insulin Syringe-Needle U-100 (BD INSULIN SYRINGE) 1 mL 25 x 1 syrg Use one a month for b12 injections levothyroxine (SYNTHROID) 112 mcg tablet Take 1 tablet by mouth daily before breakfast. lisinopril (ZESTRIL, PRINIVIL) 40 mg tablet Take 1 tablet by mouth once daily. albuterol HFA (PROVENTIL HFA, VENTOLIN HFA) 90 mcg/actuation inhaler Inhale 2 Puffs as instructed every 4 hours as needed for Wheezing/Shortness of Breath. COMPOUNDED PRESCRIPTION 3cc syringe and 25g 1 needle for B12 injections. Cholecalciferol, Vitamin D3, 25 mcg (1,000 unit) cap Take 1,000 Units by mouth once daily. Lovastatin 40 mg tablet Take 1 tablet by mouth twice daily. insulin aspart (NOVOLOG) 100 unit/mL soln use as directed in insulin pump up to 50 units daily blood sugar diagnostic (JaschaTOUCH ULTRA TEST) test strip CHECK BLOOD SUGARS 8 TIMES DAILY COMPOUNDED PRESCRIPTION Metronic Minimed Insulin Pump Supples And life scan testing supplies use as directed Lancets [facility] lancets testing 8 times daily BD ULTRA FINE LANCETS use as directed ASPIRIN 81 MG ORAL TAB Take one(1) tablet daily. VITAMIN C 500 MG ORAL TAB Take one(1) tablet daily. estradiol (E2) emollient cream 0.2 mg/gram (CPD) Insert fingertip amount vaginally every other day at bedtime (Patient not taking: Reported on 07/19/2024) No current facility-administered medications for this visit. 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 Other acne Other vitamin B12 deficiency anemia Snoring Type I (juvenile type) diabetes mellitus without mention of complication, not stated as uncontrolled (HCC) Unspecified asthma, with status asthmaticus Unspecified hypothyroidism PAST SURGICAL HISTORY Procedure Laterality Date APPENDECTOMY COLONOSCOPY 07/12/2016 Repeat colonoscopy 2018 COLONOSCOPY SCREENING 07/13/2021 OOPHORECTOMY PARTIAL/TOTAL UNI/BI 03/2007 right oophorectomy PAST SURGICAL HISTORY OF LAPAROSCOPY TOTAL ABDOMINAL HYSTERECT W/WO RMVL TUBE OVARY 03/2007 Hysterectomy, [facility] FAMILY HISTORY Problem Relation Age of Onset No Known Problems Mother other (RENAL CANCER) Father other (Brain Tumors) Sister other (Giallan barrette Syndrome) Sister Colon Cancer Maternal Grandmother and maternal grandfather No Known Problems Maternal Grandfather No Known Problems Paternal Grandmother No Known Problems Paternal Grandfather Social History Tobacco Use Smoking status: Every Day Current packs/day: 0.50 Types: Cigarettes Smokeless tobacco: Never Tobacco comments: seldom Vaping Use Vaping status: Never Used Substance Use Topics Alcohol use: Not Currently Comment: Occasionally Drug use: No Reviewed current medications, allergies, past medical history, surgical history, family history and social history today. REVIEW OF SYSTEMS All other reviewed and negative other than HPI. VITALS: BP 98/60 Pulse 98 Ht 162.6 cm (5' 4) Wt 66.2 kg (146 lb) LMP 01/13/2007 SpO2 98% BMI 25.06 kg/m? Last 4 Encounter Wt Readings: Date: Wt: 07/19/2024 65.7 kg (144 lb 12.8 oz) 06/04/2024 67.9 kg (149 lb 11.1 oz) 03/05/2024 67.5 kg (148 lb 13 oz) 10/04/2023 74.1 kg (163 lb 6.4 oz) PHYSICAL EXAMINATION: General appearance: Well appearing, alert, in no acute distress, well-hydrated, well nourished. Skin: Skin color, texture, turgor normal, no suspicious rashes or lesions (more content not included)... [facility] 09-18-2024 History of Present illness Narrative Patient presents with: Lump HPI: Patient presents today for office visit for lump behind right ear. Noticed lump behind her right ear about 2-3 months ago. Has not changed in size. Sometimes it's sore. No drainage. No fevers. No lumps or bumps elsewhere. No ear pain. No rashes or sore throat. Still seeing Dr Engel. MEDICATIONS: Current Outpatient Medications Medication Sig cyanocobalamin 1,000 mcg/mL Inject 1 mL subcutaneously once every month. trimethoprim-polymyxin (POLYTRIM) 10,000 unit- 1 mg/mL ophthalmic solution Use 1 Drop in the right eye four times daily. WEGOVY 0.25 mg/0.5 mL pen injector inject 1 syringe subcutaneously once weekly fluticasone-salmeterol (ADVAIR DISKUS) 500-50 mcg/dose dsdv Inhale 1 Puff as instructed two times a day. Rinse mouth after use. lansoprazole (PREVACID) 30 mg capsule TAKE NECESSARY escitalopram oxalate (LEXAPRO) 10 mg tablet Take 1 tablet by mouth once daily. estradiol 0.01% estriol 0.01% cream (CPD) Use vaginally two times a week. naproxen (NAPROSYN) 500 mg tablet Take 1 tablet by mouth two times a day as needed (for pain/inflammation). Take with food. hydroCHLOROthiazide 25 mg tablet Take 25 mg by mouth once daily. latanoprost (XALATAN) 0.005 % ophthalmic solution multivitamin tablet Take 1 tablet by mouth once daily. Insulin Syringe-Needle U-100 (BD INSULIN SYRINGE) 1 mL 25 x 1 syrg Use one a month for b12 injections levothyroxine (SYNTHROID) 112 mcg tablet Take 1 tablet by mouth daily before breakfast. lisinopril (ZESTRIL, PRINIVIL) 40 mg tablet Take 1 tablet by mouth once daily. albuterol HFA (PROVENTIL HFA, VENTOLIN HFA) 90 mcg/actuation inhaler Inhale 2 Puffs as instructed every 4 hours as needed for Wheezing/Shortness of Breath. COMPOUNDED PRESCRIPTION 3cc syringe and 25g 1 needle for B12 injections. Cholecalciferol, Vitamin D3, 25 mcg (1,000 unit) cap Take 1,000 Units by mouth once daily. Lovastatin 40 mg tablet Take 1 tablet by mouth twice daily. insulin aspart (NOVOLOG) 100 unit/mL soln use as directed in insulin pump up to 50 units daily blood sugar diagnostic (ONETOUCH ULTRA TEST) test strip CHECK BLOOD SUGARS 8 TIMES DAILY COMPOUNDED PRESCRIPTION Metronic Minimed Insulin Pump Supples And life scan testing supplies use as directed Lancets Misc lancets testing 8 times daily BD ULTRA FINE LANCETS use as directed ASPIRIN 81 MG ORAL TAB Take one(1) tablet daily. VITAMIN C 500 MG ORAL TAB Take one(1) tablet daily. estradiol (E2) emollient cream 0.2 mg/gram (CPD) Insert fingertip amount vaginally every other day at bedtime (Patient not taking: Reported on 07/19/2024) No current facility-administered medications for this visit. 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 Other acne Other vitamin B12 deficiency anemia Snoring Type I (juvenile type) diabetes mellitus without mention of complication, not stated as uncontrolled (HCC) Unspecified asthma, with status asthmaticus Unspecified hypothyroidism PAST SURGICAL HISTORY Procedure Laterality Date APPENDECTOMY COLONOSCOPY 07/12/2016 Repeat colonoscopy 2018 COLONOSCOPY SCREENING 07/13/2021 OOPHORECTOMY PARTIAL/TOTAL UNI/BI 03/2007 right oophorectomy PAST SURGICAL HISTORY OF LAPAROSCOPY TOTAL ABDOMINAL HYSTERECT W/WO RMVL TUBE OVARY 03/2007 Hysterectomy, [facility] FAMILY HISTORY Problem Relation Age of Onset No Known Problems Mother other (RENAL CANCER) Father other (Brain Tumors) Sister other (Giallan barrette Syndrome) Sister Colon Cancer Maternal Grandmother and maternal grandfather No Known Problems Maternal Grandfather No Known Problems Paternal Grandmother No Known Problems Paternal Grandfather Social History Tobacco Use Smoking status: Every Day Current packs/day: 0.50 Types: Cigarettes Smokeless tobacco: Never Tobacco comments: seldom Vaping Use Vaping status: Never Used Substance Use Topics Alcohol use: Not Currently Comment: Occasionally Drug use: No Reviewed current medications, allergies, past medical history, surgical history, family history and social history today. REVIEW OF SYSTEMS All other reviewed and negative other than HPI. VITALS: BP 98/60 Pulse 98 Ht 162.6 cm (5' 4) Wt 66.2 kg (146 lb) LMP 01/13/2007 SpO2 98% BMI 25.06 kg/m Last 4 Encounter Wt Readings: Date: Wt: 07/19/2024 65.7 kg (144 lb 12.8 oz) 06/04/2024 67.9 kg (149 lb 11.1 oz) 03/05/2024 67.5 kg (148 lb 13 oz) 10/04/2023 74.1 kg (163 lb 6.4 oz) PHYSICAL EXAMINATION: General appearance: Well appearing, alert, in no acute distress, well-hydrated, well nourished. Skin: Skin color, texture, turgor normal, no suspicious rashes or lesions Head: Normocephalic, no masses, lesions, tenderness or abnormalities Ears: External ears normal, canals clear Neck: palpable 1.5-2cm mass beneath the angle of the jaw on the left. Mobile and well circumscribed. Feels fairly superfical. No other lymphadenopathy noted. ASSESSMENT/PLAN: 1. Neck mass - ICD9: 784.2, ICD10: R22.1 - check labs and ct. Consider ent if needed. - CT NECK SOFT TISSUE W IVCON - IV CONTRAST (RADIOLOGY PROCEDURE) - NOT ON MAR - BASIC METABOLIC PANEL - COMPLETE BLOOD COUNT AND DIFFERENTIAL - SEDIMENTATION RATE, WESTERGREN William Steinberg MD RTO for physical. documented in this encounter [facility] 07-23-2024 Telephone encounter Note Patient requesting needles Prescription Refill The last office visit in the department: 03/07/2024 Does the patient have a future office visit with this provider/department: No Requested Prescriptions Pending Prescriptions Disp Refills cyanocobalamin 1,000 mcg/mL 3 Each 3 Sig: Inject 1 mL subcutaneously once every month. Trudi Moreno LPN July 23, 2024 11:53 AM [facility] 07-23-2024 Miscellaneous Notes Patient requesting needles Prescription Refill The last office visit in the department: 03/07/2024 Does the patient have a future office visit with this provider/department: No Requested Prescriptions Pending Prescriptions Disp Refills cyanocobalamin 1,000 mcg/mL 3 Each 3 Sig: Inject 1 mL subcutaneously once every month. Trudi Moreno LPN July 23, 2024 11:53 AM documented in this encounter [facility] 07-19-2024 Note HNO ID: [id number] Author: REKHA FARRELL APRN.POKER MANAGER Service: ? 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 Mayi Mata is a 59 year old female who presents for problem visit vaginal burning , irritation recent [facility] on 07/15/2024 current treatment Fluconazole, negative yeast culture. HPI: Patient states that she has noticed an increase in vaginal and bladder irritation. She is using the vaginal estrogen cream twice a week per her conversation with [employer] Cuevas at her annual last year. Patient states that when she was using the cream 3 times a week she did not notice this issue as much. She denies any dysuria, vaginal discharge, bleeding or any odor. 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 Other acne Other vitamin B12 deficiency anemia Snoring Type I (juvenile type) diabetes mellitus without mention of complication, not stated as uncontrolled (HCC) Unspecified asthma, with status asthmaticus Unspecified hypothyroidism PAST SURGICAL HISTORY Procedure Laterality Date APPENDECTOMY COLONOSCOPY 07/12/2016 Repeat colonoscopy 2018 COLONOSCOPY SCREENING 07/13/2021 OOPHORECTOMY PARTIAL/TOTAL UNI/BI 03/2007 right oophorectomy PAST SURGICAL HISTORY OF LAPAROSCOPY TOTAL ABDOMINAL HYSTERECT W/WO RMVL TUBE OVARY 03/2007 Hysterectomy, IV[facility] FAMILY HISTORY Problem Relation Age of Onset No Known Problems Mother other (RENAL CANCER) Father other (Brain Tumors) Sister other (Giallan barrette Syndrome) Sister Colon Cancer Maternal Grandmother and maternal grandfather No Known Problems Maternal Grandfather No Known Problems Paternal Grandmother No Known Problems Paternal Grandfather Social History Tobacco Use Smoking status: Every Day Current packs/day: 0.50 Types: Cigarettes Smokeless tobacco: Never Tobacco comments: seldom Vaping Use Vaping status: Never Used Substance Use Topics Alcohol use: Not Currently Comment: Occasionally Drug use: No Current Outpatient Medications Medication Sig trimethoprim-polymyxin (POLYTRIM) 10,000 unit- 1 mg/mL ophthalmic solution Use 1 Drop in the right eye four times daily. WEGOVY 0.25 mg/0.5 mL pen injector inject 1 syringe subcutaneously once weekly fluticasone-salmeterol (ADVAIR DISKUS) 500-50 mcg/dose dsdv Inhale 1 Puff as instructed two times a day. Rinse mouth after use. lansoprazole (PREVACID) 30 mg capsule TAKE NECESSARY escitalopram oxalate (LEXAPRO) 10 mg tablet Take 1 tablet by mouth once daily. estradiol 0.01% estriol 0.01% cream (CPD) Use vaginally two times a week. naproxen (NAPROSYN) 500 mg tablet Take 1 tablet by mouth two times a day as needed (for pain/inflammation). Take with food. hydroCHLOROthiazide 25 mg tablet Take 25 mg by mouth once daily. latanoprost (XALATAN) 0.005 % ophthalmic solution multivitamin tablet Take 1 tablet by mouth once daily. Insulin Syringe-Needle U-100 (BD INSULIN SYRINGE) 1 mL 25 x 1 syrg Use one a month for b12 injections levothyroxine (SYNTHROID) 112 mcg tablet Take 1 tablet by mouth daily before breakfast. lisinopril (ZESTRIL, PRINIVIL) 40 mg tablet Take 1 tablet by mouth once daily. albuterol HFA (PROVENTIL HFA, VENTOLIN HFA) 90 mcg/actuation inhaler Inhale 2 Puffs as instructed every 4 hours as needed for Wheezing/Shortness of Breath. COMPOUNDED PRESCRIPTION 3cc syringe and 25g 1 needle for B12 injections. Cholecalciferol, Vitamin D3, 25 mcg (1,000 unit) cap Take 1,000 Units by mouth once daily. Lovastatin 40 mg tablet Take 1 tablet by mouth twice daily. insulin aspart (NOVOLOG) 100 unit/mL soln use as directed in insulin pump up to 50 units daily blood sugar diagnostic (ONETOUCH ULTRA TEST) test strip CHECK BLOOD SUGARS 8 TIMES DAILY COMPOUNDED PRESCRIPTION Metronic Minimed Insulin Pump Supples And life scan testing supplies use as directed Lancets Misc lancets testing 8 times daily BD ULTRA FINE LANCETS use as directed ASPIRIN 81 MG ORAL TAB Take one(1) tablet daily. VITAMIN C 500 MG ORAL TAB Take one(1) tablet daily. fluconazole (DIFLUCAN) 200 mg tablet Take 200 mg by mouth one time only. (Patient not taking: Reported on 07/19/2024) cyanocobalamin 1,000 mcg/mL Inject 1 mL subcutaneously once every month. estradiol (E2) emollient cream 0.2 mg/gram (CPD) Insert fingertip amount vaginally every other day at bedtime (Patient not taking: Reported on 07/19/2024) No current facility-administered medications for this visit. Allergies As of Date: 07/19/2024 (more content not included)... 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 Mayi Mata is a 59 year old female who presents for problem visit vaginal burning , irritation recent [facility] on 07/15/2024 current treatment Fluconazole, negative yeast culture. HPI: Patient states that she has noticed an increase in vaginal and bladder irritation. She is using the vaginal estrogen cream twice a week per her conversation with [employer] Cuevas at her annual last year. Patient states that when she was using the cream 3 times a week she did not notice this issue as much. She denies any dysuria, vaginal discharge, bleeding or any odor. 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 Other acne Other vitamin B12 deficiency anemia Snoring Type I (juvenile type) diabetes mellitus without mention of complication, not stated as uncontrolled (HCC) Unspecified asthma, with status asthmaticus Unspecified hypothyroidism PAST SURGICAL HISTORY Procedure Laterality Date APPENDECTOMY COLONOSCOPY 07/12/2016 Repeat colonoscopy 2018 COLONOSCOPY SCREENING 07/13/2021 OOPHORECTOMY PARTIAL/TOTAL UNI/BI 03/2007 right oophorectomy PAST SURGICAL HISTORY OF LAPAROSCOPY TOTAL ABDOMINAL HYSTERECT W/WO RMVL TUBE OVARY 03/2007 Hysterectomy, IVY FAMILY HISTORY Problem Relation Age of Onset No Known Problems Mother other (RENAL CANCER) Father other (Brain Tumors) Sister other (Giallan barrette Syndrome) Sister Colon Cancer Maternal Grandmother and maternal grandfather No Known Problems Maternal Grandfather No Known Problems Paternal Grandmother No Known Problems Paternal Grandfather Social History Tobacco Use Smoking status: Every Day Current packs/day: 0.50 Types: Cigarettes Smokeless tobacco: Never Tobacco comments: seldom Vaping Use Vaping status: Never Used Substance Use Topics Alcohol use: Not Currently Comment: Occasionally Drug use: No Current Outpatient Medications Medication Sig trimethoprim-polymyxin (POLYTRIM) 10,000 unit- 1 mg/mL ophthalmic solution Use 1 Drop in the right eye four times daily. WEGOVY 0.25 mg/0.5 mL pen injector inject 1 syringe subcutaneously once weekly fluticasone-salmeterol (ADVAIR DISKUS) 500-50 mcg/dose dsdv Inhale 1 Puff as instructed two times a day. Rinse mouth after use. lansoprazole (PREVACID) 30 mg capsule TAKE NECESSARY escitalopram oxalate (LEXAPRO) 10 mg tablet Take 1 tablet by mouth once daily. estradiol 0.01% estriol 0.01% cream (CPD) Use vaginally two times a week. naproxen (NAPROSYN) 500 mg tablet Take 1 tablet by mouth two times a day as needed (for pain/inflammation). Take with food. hydroCHLOROthiazide 25 mg tablet Take 25 mg by mouth once daily. latanoprost (XALATAN) 0.005 % ophthalmic solution multivitamin tablet Take 1 tablet by mouth once daily. Insulin Syringe-Needle U-100 (BD INSULIN SYRINGE) 1 mL 25 x 1 syrg Use one a month for b12 injections levothyroxine (SYNTHROID) 112 mcg tablet Take 1 tablet by mouth daily before breakfast. lisinopril (ZESTRIL, PRINIVIL) 40 mg tablet Take 1 tablet by mouth once daily. albuterol HFA (PROVENTIL HFA, VENTOLIN HFA) 90 mcg/actuation inhaler Inhale 2 Puffs as instructed every 4 hours as needed for Wheezing/Shortness of Breath. COMPOUNDED PRESCRIPTION 3cc syringe and 25g 1 needle for B12 injections. Cholecalciferol, Vitamin D3, 25 mcg (1,000 unit) cap Take 1,000 Units by mouth once daily. Lovastatin 40 mg tablet Take 1 tablet by mouth twice daily. insulin aspart (NOVOLOG) 100 unit/mL soln use as directed in insulin pump up to 50 units daily blood sugar diagnostic (ONETOUCH ULTRA TEST) test strip CHECK BLOOD SUGARS 8 TIMES DAILY COMPOUNDED PRESCRIPTION Metronic Minimed Insulin Pump Supples And life scan testing supplies use as directed Lancets Misc lancets testing 8 times daily BD ULTRA FINE LANCETS use as directed ASPIRIN 81 MG ORAL TAB Take one(1) tablet daily. VITAMIN C 500 MG ORAL TAB Take one(1) tablet daily. fluconazole (DIFLUCAN) 200 mg tablet Take 200 mg by mouth one time only. (Patient not taking: Reported on 07/19/2024) cyanocobalamin 1,000 mcg/mL Inject 1 mL subcutaneously once every month. estradiol (E2) emollient cream 0.2 mg/gram (CPD) Insert fingertip amount vaginally every other day at bedtime (Patient not taking: Reported on 07/19/2024) No current facility-administered medications for this visit. Allergies As of Date: 07/19/2024 Allergen Noted Reaction SERTRALINE 12/22/2007 Diarrhea Fully Assessed 07/19/2024 REVIEW OF SYSTEMS Expanded ROS: N/A Allergies and current medication updated:Yes SENSITIVE EXAM: The sensitive examination was discussed with the Patient or Patient's Authorized Rouge Presser. As applicable, any other physician, advance practice provider, medical student, or other health professional student that will be observing or involved in the sensitive examination for educational or training purposes was discussed with the Patient or Authorized Rouge Presser. The Patient or Authorized Rouge Presser has agreed to proceed with the sensitive examination. (Sensitive examination includes inspection and/or palpation of the breasts, pelvis, prostate and anorectal regions). EXAM: BP 128/74 Wt 144 lb 12.8 oz (65.7kg) LMP 01/13/2007 GENERAL: pleasant, female in no apparent distress HEENT: Normocephalic, atraumatic, mucus membranes moist, and no lesions CHEST: Normal inspiratory effort PELVIC: external genitalia normal, normal Bartholin's glands, urethra, [place]'s glands, no vulvar lesions, no cervical lesions, physiologic discharge present, normal appearing perineal body and perianal region BIMANUAL: uterus normal size, shape and consistency, no adnexal masses, and non-tender NEURO: alert and oriented x3,exam grossly non-focal EXTREMITIES: normal ASSESSMENT AND PLAN: Assessment & Plan Vaginal irritation Orders: JULIÁN/TRICHOMONAS NAAT BACTERIAL VAGINOSIS NAAT Increase estrace cream to 3x/wk Will notify patient of test results. Rekha Farrell APRN.CNP Medical Decision Making: Problems: Moderate: New problem with uncertain prognosis Data: Unique test(s) ordered: 2 Risk: Moderate: Drug management Medical Decision Making Level: 4 - Moderate documented in this encounter [facility] 06-04-2024 Note HNO ID: [id number] Author: JENA BLANK PA Service: ? Author Type: Physician Panel Builder Type: Progress Notes Filed: 06/04/2024 07:52 Note Text: This note was created using [employer]. Subjective Mayi Mata is a 59 year old female. HPI 59-year-old female presents for right eye irritation. Patient states her right eye has been irritated for the past day. She woke up this morning and her right eye was crusted shut. She has no pain in the eye, states it just feels scratchy. She denies any vision changes. She does wear glasses, no contacts. No fevers, cough, congestion. No headaches. Does not recall getting anything in the eye. No other complaint. 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 Other acne Other vitamin B12 deficiency anemia Snoring Type I (juvenile type) diabetes mellitus without mention of complication, not stated as uncontrolled (HCC) Unspecified asthma, with status asthmaticus Unspecified hypothyroidism PAST SURGICAL HISTORY Procedure Laterality Date APPENDECTOMY COLONOSCOPY 07/12/2016 Repeat colonoscopy 2018 COLONOSCOPY SCREENING 07/13/2021 OOPHORECTOMY PARTIAL/TOTAL UNI/BI 03/2007 right oophorectomy PAST SURGICAL HISTORY OF LAPAROSCOPY TOTAL ABDOMINAL HYSTERECT W/WO RMVL TUBE OVARY 03/2007 Hysterectomy, IVY ALLERGIES Sertraline MEDICATIONS WEGOVY 0.25 mg/0.5 mL pen injector inject 1 syringe subcutaneously once weekly fluticasone-salmeterol (ADVAIR DISKUS) 500-50 mcg/dose dsdv Inhale 1 Puff as instructed two times a day. Rinse mouth after use. cyanocobalamin 1,000 mcg/mL Inject 1 mL subcutaneously once every month. lansoprazole (PREVACID) 30 mg capsule TAKE NECESSARY escitalopram oxalate (LEXAPRO) 10 mg tablet Take 1 tablet by mouth once daily. estradiol 0.01% estriol 0.01% cream (CPD) Use vaginally two times a week. naproxen (NAPROSYN) 500 mg tablet Take 1 tablet by mouth two times a day as needed (for pain/inflammation). Take with food. estradiol (E2) emollient cream 0.2 mg/gram (CPD) Insert fingertip amount vaginally every other day at bedtime hydroCHLOROthiazide 25 mg tablet Take 25 mg by mouth once daily. latanoprost (XALATAN) 0.005 % ophthalmic solution multivitamin tablet Take 1 tablet by mouth once daily. Insulin Syringe-Needle U-100 (BD INSULIN SYRINGE) 1 mL 25 x 1 syrg Use one a month for b12 injections levothyroxine (SYNTHROID) 112 mcg tablet Take 1 tablet by mouth daily before breakfast. lisinopril (ZESTRIL, PRINIVIL) 40 mg tablet Take 1 tablet by mouth once daily. albuterol HFA (PROVENTIL HFA, VENTOLIN HFA) 90 mcg/actuation inhaler Inhale 2 Puffs as instructed every 4 hours as needed for Wheezing/Shortness of Breath. COMPOUNDED PRESCRIPTION 3cc syringe and 25g 1 needle for B12 injections. Cholecalciferol, Vitamin D3, 25 mcg (1,000 unit) cap Take 1,000 Units by mouth once daily. Lovastatin 40 mg tablet Take 1 tablet by mouth twice daily. insulin aspart (NOVOLOG) 100 unit/mL soln use as directed in insulin pump up to 50 units daily blood sugar diagnostic (ONETOUCH ULTRA TEST) test strip CHECK BLOOD SUGARS 8 TIMES DAILY COMPOUNDED PRESCRIPTION Metronic Minimed Insulin Pump Supples And life scan testing supplies use as directed Lancets Misc lancets testing 8 times daily BD ULTRA FINE LANCETS use as directed ASPIRIN 81 MG ORAL TAB Take one(1) tablet daily. VITAMIN C 500 MG ORAL TAB Take one(1) tablet daily. trimethoprim-polymyxin (POLYTRIM) 10,000 unit- 1 mg/mL ophthalmic solution Use 1 Drop in the right eye four times daily. cyclobenzaprine (FLEXERIL) 10 mg tablet Take 1 tablet by mouth three times a day as needed for muscle spasm. (Patient not taking: Reported on 03/05/2024) FAMILY HISTORY Problem Relation Age of Onset No Known Problems Mother other (RENAL CANCER) Father other (Brain Tumors) Sister other (Giallan barrette Syndrome) Sister Colon Cancer Maternal Grandmother and maternal grandfather No Known Problems Maternal Grandfather No Known Problems Paternal Grandmother No Known Problems Paternal Grandfather Social History Tobacco Use Smoking status: Every Day Current packs/day: 0.50 Types: Cigarettes Smokeless tobacco: Never Tobacco comments: seldom Vaping Use Vaping status: Never Used Substance Use Topics Alcohol use: Not Currently Comment: Occasionally Drug use: No Review of Systems Constitutional: Negative for chills and fever. HENT: Negative for congestion, ear pain and sore throat. Eyes: Positive for discharge, redness and itching. Negative for photophobia, pain and visual disturbance. Respiratory: Negative for cough and shortness of breath. Cardiovascular: Negative for chest pain. Gastrointestinal: Negative for diarrhea and vomiting. Objective BP 122/76 Pulse 110 Temp 36.4 ?C (97.5 ?F) Resp 16 Wt 67.9 kg (149 lb 11.1 oz) LMP 01/13/2007 SpO2 100% BMI 25.69 kg/m? Physical (more content not included)... [facility] 06-04-2024 History of Present illness Narrative This note was created using [employer]. Subjective Mayi Mata is a 59 year old female. HPI 59-year-old female presents for right eye irritation. Patient states her right eye has been irritated for the past day. She woke up this morning and her right eye was crusted shut. She has no pain in the eye, states it just feels scratchy. She denies any vision changes. She does wear glasses, no contacts. No fevers, cough, congestion. No headaches. Does not recall getting anything in the eye. No other complaint. 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 Other acne Other vitamin B12 deficiency anemia Snoring Type I (juvenile type) diabetes mellitus without mention of complication, not stated as uncontrolled (HCC) Unspecified asthma, with status asthmaticus Unspecified hypothyroidism PAST SURGICAL HISTORY Procedure Laterality Date APPENDECTOMY COLONOSCOPY 07/12/2016 Repeat colonoscopy 2018 COLONOSCOPY SCREENING 07/13/2021 OOPHORECTOMY PARTIAL/TOTAL UNI/BI 03/2007 right oophorectomy PAST SURGICAL HISTORY OF LAPAROSCOPY TOTAL ABDOMINAL HYSTERECT W/WO RMVL TUBE OVARY 03/2007 Hysterectomy, IVY ALLERGIES Sertraline MEDICATIONS WEGOVY 0.25 mg/0.5 mL pen injector inject 1 syringe subcutaneously once weekly fluticasone-salmeterol (ADVAIR DISKUS) 500-50 mcg/dose dsdv Inhale 1 Puff as instructed two times a day. Rinse mouth after use. cyanocobalamin 1,000 mcg/mL Inject 1 mL subcutaneously once every month. lansoprazole (PREVACID) 30 mg capsule TAKE NECESSARY escitalopram oxalate (LEXAPRO) 10 mg tablet Take 1 tablet by mouth once daily. estradiol 0.01% estriol 0.01% cream (CPD) Use vaginally two times a week. naproxen (NAPROSYN) 500 mg tablet Take 1 tablet by mouth two times a day as needed (for pain/inflammation). Take with food. estradiol (E2) emollient cream 0.2 mg/gram (CPD) Insert fingertip amount vaginally every other day at bedtime hydroCHLOROthiazide 25 mg tablet Take 25 mg by mouth once daily. latanoprost (XALATAN) 0.005 % ophthalmic solution multivitamin tablet Take 1 tablet by mouth once daily. Insulin Syringe-Needle U-100 (BD INSULIN SYRINGE) 1 mL 25 x 1 syrg Use one a month for b12 injections levothyroxine (SYNTHROID) 112 mcg tablet Take 1 tablet by mouth daily before breakfast. lisinopril (ZESTRIL, PRINIVIL) 40 mg tablet Take 1 tablet by mouth once daily. albuterol HFA (PROVENTIL HFA, VENTOLIN HFA) 90 mcg/actuation inhaler Inhale 2 Puffs as instructed every 4 hours as needed for Wheezing/Shortness of Breath. COMPOUNDED PRESCRIPTION 3cc syringe and 25g 1 needle for B12 injections. Cholecalciferol, Vitamin D3, 25 mcg (1,000 unit) cap Take 1,000 Units by mouth once daily. Lovastatin 40 mg tablet Take 1 tablet by mouth twice daily. insulin aspart (NOVOLOG) 100 unit/mL soln use as directed in insulin pump up to 50 units daily blood sugar diagnostic (ONETOUCH ULTRA TEST) test strip CHECK BLOOD SUGARS 8 TIMES DAILY COMPOUNDED PRESCRIPTION Metronic Minimed Insulin Pump Supples And life scan testing supplies use as directed Lancets Misc lancets testing 8 times daily BD ULTRA FINE LANCETS use as directed ASPIRIN 81 MG ORAL TAB Take one(1) tablet daily. VITAMIN C 500 MG ORAL TAB Take one(1) tablet daily. trimethoprim-polymyxin (POLYTRIM) 10,000 unit- 1 mg/mL ophthalmic solution Use 1 Drop in the right eye four times daily. cyclobenzaprine (FLEXERIL) 10 mg tablet Take 1 tablet by mouth three times a day as needed for muscle spasm. (Patient not taking: Reported on 03/05/2024) FAMILY HISTORY Problem Relation Age of Onset No Known Problems Mother other (RENAL CANCER) Father other (Brain Tumors) Sister other (Giallan barrette Syndrome) Sister Colon Cancer Maternal Grandmother and maternal grandfather No Known Problems Maternal Grandfather No Known Problems Paternal Grandmother No Known Problems Paternal Grandfather Social History Tobacco Use Smoking status: Every Day Current packs/day: 0.50 Types: Cigarettes Smokeless tobacco: Never Tobacco comments: seldom Vaping Use Vaping status: Never Used Substance Use Topics Alcohol use: Not Currently Comment: Occasionally Drug use: No Review of Systems Constitutional: Negative for chills and fever. HENT: Negative for congestion, ear pain and sore throat. Eyes: Positive for discharge, redness and itching. Negative for photophobia, pain and visual disturbance. Respiratory: Negative for cough and shortness of breath. Cardiovascular: Negative for chest pain. Gastrointestinal: Negative for diarrhea and vomiting. Objective BP 122/76 Pulse 110 Temp 36.4 C (97.5 F) Resp 16 Wt 67.9 kg (149 lb 11.1 oz) LMP 01/13/2007 SpO2 100% BMI 25.69 kg/m Physical Exam Vitals and nursing note reviewed. Constitutional: General: She is not in acute distress. Appearance: Normal appearance. She is not toxic-appearing. HENT: Right Ear: Tympanic membrane and ear canal normal. Left Ear: Tympanic membrane and ear canal normal. Nose: Nose normal. Mouth/Throat: Mouth: Mucous membranes are moist. Eyes: General: Vision grossly intact. Right eye: No discharge. Extraocular Movements: Extraocular movements intact. Conjunctiva/sclera: Right eye: Right conjunctiva is injected. Pupils: Pupils are equal, round, and reactive to light. Right eye: No corneal abrasion or fluorescein uptake. Comments: Right conjunctive injected. Fluorescein exam reveals no uptake. No corneal abrasion seen. No foreign body seen. PERRLA. EOMI. Vision 20/25 right eye. Cardiovascular: Rate and Rhythm: Normal rate and regular rhythm. Pulmonary: Effort: Pulmonary effort is normal. Breath sounds: Normal breath sounds. Skin: General: Skin is warm and dry. Neurological: Mental Status: She is alert. Assessment and Plan ASSESSMENT/PLAN: 1. Acute conjunctivitis of right eye, unspecified acute conjunctivitis type - ICD9: 372.00, ICD10: H10.31 -Viral versus bacterial. Rx for Polytrim - see medication orders - course and contagiousness issues discussed, including hand washing. - Instructed to call if high fever, development of periorbital redness or swelling, eye pain, visual changes, concerns or if symptoms persist. Diagnosis and treatment plan were discussed and questions were answered to the patient's satisfaction. Pt acknowledged understanding of concepts and follow up plan. Specific signs and symptoms that would indicate the need for higher level of care were discussed in detail warranting prompt ER evaluation. LILLIE Barfield documented in this encounter [facility] 03-07-2024 History of Present illness Narrative Images from the original note were not included. SERVICE DATE: March 07, 2024 PCP: William Steinberg MD Subjective Patient ID: Mayi is a 59 year old female. Chief Complaint: Patient presents with: Right ulnar nerve impingement REF: Bryan Cadet PAIN EVALUATION 03/05/2024 1815 Pain Level: 5 Pain Location: Arm-Right Description: Aching;Tingling Duration Amount of Time: 2 Duration Units: Weeks Frequency: Continuous Intervention/Comfort measure: Medication Comments: Tylenol HPI Patient presents today with right hand numbness and tingling right elbow pain. He states he has been having symptoms for about 2 weeks. She points to the index finger and middle finger when describing numbness tingling that comes and goes with activity. She states it is worse when she wakes up or after doing repetitive activities. She also has some lateral elbow pain started around the same time. 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 No date: Other acne No date: Other vitamin B12 deficiency anemia No date: Snoring No date: Type I (juvenile type) diabetes mellitus without mention of complication, not stated as uncontrolled (HCC) No date: Unspecified asthma, with status asthmaticus No date: Unspecified hypothyroidism PAST SURGICAL HISTORY No date: APPENDECTOMY 07/12/2016: COLONOSCOPY Comment: Repeat colonoscopy 201707/13/2021: COLONOSCOPY SCREENING 03/2007: OOPHORECTOMY PARTIAL/TOTAL UNI/BI Comment: right oophorectomy No date: PAST SURGICAL HISTORY OF Comment: LAPAROSCOPY 03/2007: TOTAL ABDOMINAL HYSTERECT W/WO RMVL TUBE OVARY Comment: Hysterectomy, IVY FAMILY HISTORY Problem Relation Age of Onset No Known Problems Mother other (RENAL CANCER) Father other (Brain Tumors) Sister other (Giallan barrette Syndrome) Sister Colon Cancer Maternal Grandmother and maternal grandfather No Known Problems Maternal Grandfather No Known Problems Paternal Grandmother No Known Problems Paternal Grandfather Social History Tobacco Use Smoking status: Every Day Current packs/day: 0.50 Types: Cigarettes Smokeless tobacco: Never Tobacco comments: seldom Vaping Use Vaping status: Never Used Substance Use Topics Alcohol use: Not Currently Comment: Occasionally Drug use: No ALLERGIES Allergen Reactions Sertraline Diarrhea MEDICATIONS: WEGOVY 0.25 mg/0.5 mL pen injector inject 1 syringe subcutaneously once weekly fluticasone-salmeterol (ADVAIR DISKUS) 500-50 mcg/dose dsdv Inhale 1 Puff as instructed two times a day. Rinse mouth after use. cyanocobalamin 1,000 mcg/mL Inject 1 mL subcutaneously once every month. lansoprazole (PREVACID) 30 mg capsule TAKE NECESSARY escitalopram oxalate (LEXAPRO) 10 mg tablet Take 1 tablet by mouth once daily. estradiol 0.01% estriol 0.01% cream (CPD) Use vaginally two times a week. naproxen (NAPROSYN) 500 mg tablet Take 1 tablet by mouth two times a day as needed (for pain/inflammation). Take with food. estradiol (E2) emollient cream 0.2 mg/gram (CPD) Insert fingertip amount vaginally every other day at bedtime hydroCHLOROthiazide 25 mg tablet Take 25 mg by mouth once daily. latanoprost (XALATAN) 0.005 % ophthalmic solution multivitamin tablet Take 1 tablet by mouth once daily. levothyroxine (SYNTHROID) 112 mcg tablet Take 1 tablet by mouth daily before breakfast. lisinopril (ZESTRIL, PRINIVIL) 40 mg tablet Take 1 tablet by mouth once daily. albuterol HFA (PROVENTIL HFA, VENTOLIN HFA) 90 mcg/actuation inhaler Inhale 2 Puffs as instructed every 4 hours as needed for Wheezing/Shortness of Breath. Cholecalciferol, Vitamin D3, 25 mcg (1,000 unit) cap Take 1,000 Units by mouth once daily. Lovastatin 40 mg tablet Take 1 tablet by mouth twice daily. insulin aspart (NOVOLOG) 100 unit/mL soln use as directed in insulin pump up to 50 units daily ASPIRIN 81 MG ORAL TAB Take one(1) tablet daily. VITAMIN C 500 MG ORAL TAB Take one(1) tablet daily. predniSONE (DELTASONE) 10 mg tablet Take 4 tabs daily x 3 days, then 3 tabs x 3 days, 2 tabs x 3 days, then 1 tab x3 days with food. cyclobenzaprine (FLEXERIL) 10 mg tablet Take 1 tablet by mouth three times a day as needed for muscle spasm. (Patient not taking: Reported on 03/05/2024) Insulin Syringe-Needle U-100 (BD INSULIN SYRINGE) 1 mL 25 x 1 syrg Use one a month for b12 injections COMPOUNDED PRESCRIPTION 3cc syringe and 25g 1 needle for B12 injections. blood sugar diagnostic (JaschaTOUCH ULTRA TEST) test strip CHECK BLOOD SUGARS 8 TIMES DAILY COMPOUNDED PRESCRIPTION Metronic Minimed Insulin Pump Supples And life scan testing supplies use as directed Lancets Misc lancets testing 8 times daily BD ULTRA FINE LANCETS use as directed Allergies, medications, past surgical history, family history and past medical history were reviewed per this encounter. Objective Ortho Exam 59-year-old female in no acute distress she is alert pleasant and cooperative with exam. Evaluation of the hand shows no thenar eminence or hypothenar eminence wasting. Tomato Paste Maker strength is equal bilaterally. Mild symptoms with Tinel and Phalen test. No vascular findings. Assessment/Plan ASSESSMENT Diagnosis (G56.11) Median nerve dysfunction, right (primary encounter diagnosis) (G56.21) Impingement of right ulnar nerve Plan: CONSULT TO ORTHOPAEDICS Office Visit on 03/07/24 CONSULT TO ORTHOPAEDICS PLAN Symptoms to go along more with median nerve dysfunction as well as lateral epicondylitis. I recommend cock-up splint for bedtime. Taper dose of prednisone. Patient is a type I diabetic with insulin pump and continuous glucose monitor and she is informed that her blood sugars will likely go up with prednisone treatment. Handout given for nerve gliding exercises. Follow-up in 2 weeks. FOLLOW-UP: No follow-ups on file. SIGNATURE: Dane Delcid DO PATIENT NAME: Mayi Mata DATE: March 07, 2024 TIME: 1:26 PM PT ASSESSMENT - CASTING ROOM Mayi presents for Application of brace. Applied Rajani and Boo Modabber wrist brace to Right wrist Patient has been instructed in Care and proper application of brace. Patient verbalized understanding. Adenike Tobias MA documented in this encounter [facility] 03-07-2024 Nurse Note AMB ROOMING INTAKE FLOWSHEET DATA Pain Pain Level: 5 Pain Location: Arm-Right Description: Aching, Tingling Duration Amount of Time: 2 Duration Units: Weeks Frequency: Continuous Intervention/Comfort measure: Medication Comments: Tylenol Patient here today for right elbow ulnar nerve impingement. Present x 2 weeks. Was seen in Urgent Care on 03/05/2024. Right hand dominant. [facility] 03-07-2024 Nurse Note AMB ROOMING INTAKE FLOWSHEET DATA Pain Pain Level: 5 Pain Location: Arm-Right Description: Aching, Tingling Duration Amount of Time: 2 Duration Units: Weeks Frequency: Continuous Intervention/Comfort measure: Medication Comments: Tylenol Patient here today for right elbow ulnar nerve impingement. Present x 2 weeks. Was seen in Urgent Care on 03/05/2024. Right hand dominant. documented in this encounter [facility] 03-05-2024 History of Present illness Narrative Subjective HPI Nontoxic-appearing female presents urgent care chief complaint right elbow pain. Duration of symptoms 2+ weeks. Associated symptoms right elbow and shoulder discomfort. Patient states at times her fourth and fifth digit becomes numb. This is episodic. No known injuries. States does have some weakness in her right hand. Is right-hand dominant. Denies any known injuries. No surgeries or fractures previously. No current numbness or tingling. States mild weakness. No OTC medication use. Has not been seen for this complaint in the past. Past medical history prescription medication use allergies reviewed. 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 No date: Other acne No date: Other vitamin B12 deficiency anemia No date: Snoring No date: Type I (juvenile type) diabetes mellitus without mention of complication, not stated as uncontrolled (HCC) No date: Unspecified asthma, with status asthmaticus No date: Unspecified hypothyroidism PAST SURGICAL HISTORY No date: APPENDECTOMY 07/12/2016: COLONOSCOPY Comment: Repeat colonoscopy 2018 07/13/2021: COLONOSCOPY SCREENING 03/2007: OOPHORECTOMY PARTIAL/TOTAL UNI/BI Comment: right oophorectomy No date: PAST SURGICAL HISTORY OF Comment: LAPAROSCOPY 03/2007: TOTAL ABDOMINAL HYSTERECT W/WO RMVL TUBE OVARY Comment: Hysterectomy, IVY ALLERGIES Sertraline MEDICATIONS WEGOVY 0.25 mg/0.5 mL pen injector inject 1 syringe subcutaneously once weekly fluticasone-salmeterol (ADVAIR DISKUS) 500-50 mcg/dose dsdv Inhale 1 Puff as instructed two times a day. Rinse mouth after use. cyanocobalamin 1,000 mcg/mL Inject 1 mL subcutaneously once every month. lansoprazole (PREVACID) 30 mg capsule TAKE NECESSARY escitalopram oxalate (LEXAPRO) 10 mg tablet Take 1 tablet by mouth once daily. estradiol 0.01% estriol 0.01% cream (CPD) Use vaginally two times a week. naproxen (NAPROSYN) 500 mg tablet Take 1 tablet by mouth two times a day as needed (for pain/inflammation). Take with food. estradiol (E2) emollient cream 0.2 mg/gram (CPD) Insert fingertip amount vaginally every other day at bedtime hydroCHLOROthiazide 25 mg tablet Take 25 mg by mouth once daily. latanoprost (XALATAN) 0.005 % ophthalmic solution multivitamin tablet Take 1 tablet by mouth once daily. Insulin Syringe-Needle U-100 (BD INSULIN SYRINGE) 1 mL 25 x 1 syrg Use one a month for b12 injections levothyroxine (SYNTHROID) 112 mcg tablet Take 1 tablet by mouth daily before breakfast. lisinopril (ZESTRIL, PRINIVIL) 40 mg tablet Take 1 tablet by mouth once daily. albuterol HFA (PROVENTIL HFA, VENTOLIN HFA) 90 mcg/actuation inhaler Inhale 2 Puffs as instructed every 4 hours as needed for Wheezing/Shortness of Breath. COMPOUNDED PRESCRIPTION 3cc syringe and 25g 1 needle for B12 injections. Cholecalciferol, Vitamin D3, 25 mcg (1,000 unit) cap Take 1,000 Units by mouth once daily. Lovastatin 40 mg tablet Take 1 tablet by mouth twice daily. insulin aspart (NOVOLOG) 100 unit/mL soln use as directed in insulin pump up to 50 units daily blood sugar diagnostic ([employer] Media[employer]CH ULTRA TEST) test strip CHECK BLOOD SUGARS 8 TIMES DAILY COMPOUNDED PRESCRIPTION Metronic Minimed Insulin Pump Supples And life scan testing supplies use as directed Lancets Misc lancets testing 8 times daily BD ULTRA FINE LANCETS use as directed ASPIRIN 81 MG ORAL TAB Take one(1) tablet daily. VITAMIN C 500 MG ORAL TAB Take one(1) tablet daily. cyclobenzaprine (FLEXERIL) 10 mg tablet Take 1 tablet by mouth three times a day as needed for muscle spasm. (Patient not taking: Reported on 03/05/2024) FAMILY HISTORY Problem Relation Age of Onset No Known Problems Mother other (RENAL CANCER) Father other (Brain Tumors) Sister other (Giallan barrette Syndrome) Sister Colon Cancer Maternal Grandmother and maternal grandfather No Known Problems Maternal Grandfather No Known Problems Paternal Grandmother No Known Problems Paternal Grandfather Social History Tobacco Use Smoking status: Every Day Current packs/day: 0.50 Types: Cigarettes Smokeless tobacco: Never Tobacco comments: seldom Vaping Use Vaping status: Never Used Substance Use Topics Alcohol use: Not Currently Comment: Occasionally Drug use: No BP 130/88 Pulse 100 Temp 36.4 C (97.6 F) Resp 19 Wt 67.5 kg (148 lb 13 oz) LMP 01/13/2007 SpO2 97% BMI 25.54 kg/m Review of Systems Constitutional: Negative for chills, fever and malaise/fatigue. HENT: Negative for congestion, ear discharge, ear pain, sinus pain and sore throat. Eyes: Negative for blurred vision, pain, discharge and redness. Respiratory: Negative for cough, hemoptysis, sputum production, shortness of breath, wheezing and stridor. Cardiovascular: Negative for chest pain. Gastrointestinal: Negative for abdominal pain, diarrhea, nausea and vomiting. Musculoskeletal: Positive for joint pain. Negative for myalgias. Skin: Negative for itching and rash. Neurological: Negative for dizziness and headaches. Objective Physical Exam Constitutional: General: She is not in acute distress. Appearance: She is not toxic-appearing. HENT: Head: Normocephalic. Nose: Nose normal. Eyes: Pupils: Pupils are equal, round, and reactive to light. Cardiovascular: Rate and Rhythm: Normal rate. Pulmonary: Effort: Pulmonary effort is normal. No respiratory distress. Musculoskeletal: Right upper arm: Normal. Right elbow: No swelling, deformity, effusion or lacerations. Normal range of motion. No tenderness. Right forearm: Normal. Cervical back: Normal range of motion. Comments: Neurovascular intact. Mild decrease sensation noted over third and fourth digit. Mild decrease in strength noted. No point tenderness. No erythema edema noted. No evidence of infection. Skin: General: Skin is warm and dry. Neurological: General: No focal deficit present. Mental Status: She is alert. ASSESSMENT/PLAN: 1. 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 No evidence of infection noted. Will follow-up with orthopedics as discussed. Patient was educated on supportive therapies. Patient will follow up with primary care provider as needed. Patient was instructed to immediately proceed to emergency room for any new, worsening, or symptoms lasting longer than anticipated. The patient's clinical presentation is otherwise unremarkable at this time. Based on exam and clinical finding, the patient is stable for discharge. Plan of care was discussed with patient. Patient verbalizes understanding and agrees to plan of care. This note was generated using [employer] software. It may contain errors in wording, punctuation, or spelling. Junior Cadet APRN.POKER MANAGER documented in this encounter [facility] 11-22-2023 Telephone encounter Note Cyanocobalamin script is . Patient has been identified by name and date of : Yes Patient phones for refill(s): Requested Prescriptions Pending Prescriptions Disp Refills cyanocobalamin 1,000 mcg/mL 3 Each 3 Sig: Inject 1 mL subcutaneously once every month. lansoprazole (PREVACID) 30 mg capsule 90 capsule 3 Sig: TAKE NECESSARY Date of last office visit in primary care: 03/24/2023 Date of next office visit in primary care: Visit date not found Please advise. Thank you. DANISHA Egan. [facility] 11-22-2023 Miscellaneous Notes Cyanocobalamin script is . Patient has been identified by name and date of : Yes Patient phones for refill(s): Requested Prescriptions Pending Prescriptions Disp Refills cyanocobalamin 1,000 mcg/mL 3 Each 3 Sig: Inject 1 mL subcutaneously once every month. lansoprazole (PREVACID) 30 mg capsule 90 capsule 3 Sig: TAKE NECESSARY Date of last office visit in primary care: 03/24/2023 Date of next office visit in primary care: Visit date not found Please advise. Thank you. DANISHA Egan. documented in this encounter [facility] 10-07-2023 Miscellaneous Notes October 07, 2023 PID: [id number] Mayi Mata [address] [place] [address] Dear Ms. Mata, We are pleased to inform you that the results of your recent breast imaging exam on 10/06/2023 are normal. Your mammogram demonstrates that you have dense breast tissue, which could hide abnormalities. Dense breast tissue, in and of itself, is a relatively common condition. Therefore, this information is not provided to cause undue concern; rather, it is to raise your awareness and promote discussion with your health care provider regarding the presence of dense breast tissue in addition to other risk factors. Early detection of cancer is very important. We also understand recommendations regarding breast cancer screening are controversial. Please discuss with your primary care provider which strategy is best for you and whether a mammogram is right for you. Your imaging studies and report will be kept on file at [facility] as part of your permanent medical record and are available for your continuing care. Thank you for allowing us to help in meeting your health care needs. Sincerely, Dr. Jeronimo Interpreting Radiologist [facility] (Normal over 40) documented in this encounter [facility] 10-06-2023 History of Present illness Narrative Radiology Service Progress Note PATIENT NAME: Mayi Mata DATE OF SERVICE: October 06, 2023 TIME: 2:53 PM PATIENT IDENTITY VERIFICATION COMPLETED USING TWO (2) IDENTIFIERS: Name and Date of confirmed by patient verbally. FALL SCREENING: Has the patient had 2 falls in the last year or 1 fall with injury or currently using an Ambulatory Assistive Device (Walker, Cane, Wheelchair, Crutches, etc.)? No PATIENT GENDER DATA: Female. status: : No status: NO. PATIENT RELEVANT IMPLANT DATA REVIEWED: Not Applicable PATIENT PRESENTS WITH AN IMPLANTABLE OR ATTACHED WIRELESS SALES REPRESENTATIVE: No RADIOLOGY DEPARTMENT: Mammography PERIPHERAL IV DATA: Not applicable SIGNED BY: Cortes Coopero Tony October 06, 2023 2:53 PM documented in this encounter [facility] 10-04-2023 History of Present illness Narrative Mayi is a 58 year old No obstetric history on file. who presents for an annual gynecologic exam without complaints. 2 Adopted children from [place] - 23 and 26 yrs old Works at [employer]. Postmenopausal: Hysterectomy HRT use: Yes, Estradiol cream How lon-6 years, happy with results. 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 Other acne Other vitamin B12 deficiency anemia Snoring Type I (juvenile type) diabetes mellitus without mention of complication, not stated as uncontrolled (HCC) Unspecified asthma, with status asthmaticus Unspecified hypothyroidism PAST SURGICAL HISTORY Procedure Laterality Date APPENDECTOMY COLONOSCOPY 07/12/2016 Repeat colonoscopy 2018 COLONOSCOPY SCREENING 07/13/2021 OOPHORECTOMY PARTIAL/TOTAL UNI/BI 03/2007 right oophorectomy PAST SURGICAL HISTORY OF LAPAROSCOPY TOTAL ABDOMINAL HYSTERECT W/WO RMVL TUBE OVARY 03/2007 Hysterectomy, IVY FAMILY HISTORY Problem Relation Age of Onset No Known Problems Mother other (RENAL CANCER) Father other (Brain Tumors) Sister other (Giallan barrette Syndrome) Sister Colon Cancer Maternal Grandmother and maternal grandfather No Known Problems Maternal Grandfather No Known Problems Paternal Grandmother No Known Problems Paternal Grandfather SOCIAL HISTORY Social History Tobacco Use Smoking status: Every Day Packs/day: .5 Types: Cigarettes Smokeless tobacco: Never Tobacco comments: seldom Vaping Use Vaping Use: Never used Substance Use Topics Alcohol use: Not Currently Comment: Occasionally Drug use: No REVIEW OF SYSTEMS Abdomen: No abdominal pain, nausea, vomiting, diarrhea, or constipation. No bloating, early satiety, indigestion, or increased flatulence. Bladder: No dysuria, gross hematuria, urinary frequency, urinary urgency, or incontinence Breast: No breast lumps, nipple d/c, overlying skin changes, redness or skin retraction Allergies and current medication updated:Yes EXAM: BP 108/64 Ht 5' 4 (1.63m) Wt 163 lb 6.4 oz (74.1kg) LMP 01/13/2007 BMI 28.03 kg/(m^2). GENERAL: pleasant, female in no apparent distress HEENT: Normocephalic, atraumatic, mucus membranes moist, and no lesions NECK: Supple, full range of motion, no adenopathy, and thyroid normal DERMATOLOGY: Normal, without lesions, non-icteric, and non-hirsute BREAST: soft, non-tender, symmetric, no dominant mass, normal nipple-areolar complex, no lymphadenopathy, and no nipple discharge CHEST: Clear to auscultation, Normal inspiratory effort, Regular rate and rhythm, and No murmurs, clicks, rubs or gallops ABDOMEN: soft, non-tender, and no masses PELVIC: external genitalia normal, normal Bartholin's glands, urethra, [place]'s glands, no vulvar lesions, good vaginal support, physiologic discharge present, normal appearing perineal body and perianal region, cervix surgically absent BIMANUAL: no adnexal masses, non-tender, and uterus surgically absent RECTOVAGINAL: deferred. NEURO: alert and oriented x3,exam grossly non-focal EXTREMITIES: normal ASSESSMENT/PLAN: 1. Encounter for gynecological examination (general) (routine) without abnormal findings - ICD9: V72.31, ICD10: Z01.419 (primary diagnosis) - Completed pelvic and breast exam - Encouraged monthly BSE - Follow up for annual exam in one year. - SAUNDRA SCREENING W TAMARA 2. Encounter for screening mammogram for breast cancer - ICD9: V76.12, ICD10: Z12.31 - Completed pelvic and breast exam - Encouraged monthly BSE - Follow up for annual exam in one year. - SAUNDRA SCREENING W TAMARA 3. Dense breast tissue - ICD9: 793.82, ICD10: R92.30 - SAUNDRA SCREENING W TAMARA 4. Vaginal atrophy - ICD9: 627.3, ICD10: N95.2 -uses compounded vaginal estrogen, increased cardoso. Will sent to [facility] retail pharmacy 5. Hx of hysterectomy - ICD9: V88.01, ICD10: Z90.710 1) Health maintenance: Pap/HPV screening no longer needed Mammogram ordered Nutrition, exercise and routine health maintenance exams reviewed. Calcium/Vitamin D supplementation information provided. Smoking cessation: Smoking cessation encouraged and resources provided. Benefits of smoking cessation reviewed. Patient encouraged to avoid smoking. Colon cancer screening: patient to discuss with PCP TSH/lipids/glucose: followed by PCP Vitamin D: followed by PCP 2) Follow up one year or sooner as needed Peace Cuevas APRN.CNM documented in this encounter [facility] 10-04-2023 Miscellaneous Notes Patient has been identified by name and date of : Yes, Patient phones for refill(s): Requested Prescriptions Pending Prescriptions Disp Refills escitalopram oxalate (LEXAPRO) 10 mg tablet 90 tablet 3 Sig: Take 1 tablet by mouth once daily. Date of last office visit in primary care: 03/24/2023 Date of next office visit in primary care: Visit date not found Please advise. Thank you. Trudi Moreno LPN. documented in this encounter [facility] 08-02-2023 History of Present illness Narrative This note was created using [employer]. Subjective Mayi Mata is a 58 year old female. HPI Patient presents with a chief complaint of left-sided rib pain over the past week. She had fallen and on the [place] at [employer] and landed on her anterior left chest wall. He states that hurts to breathe and talk as well as move. She has tried some Tylenol without relief. No shortness of breath. No fever. No cough or congestion. She thinks maybe she had broken a rib on that side previously. She did hit her chin but no other part of her head. No headaches. No loss of consciousness. Review of Systems Constitutional: Negative. HENT: Negative. Eyes: Negative. Respiratory: Negative. Cardiovascular: Positive for chest pain. Left rib pain Gastrointestinal: Negative. All other systems reviewed and are negative. 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 latanoprost (XALATAN) 0.005 % ophthalmic solution multivitamin tablet Take 1 tablet by mouth once daily. escitalopram oxalate (LEXAPRO) 10 mg tablet Take 1 tablet by mouth once daily. 90 tablet 3 Insulin Syringe-Needle U-100 (BD INSULIN SYRINGE) 1 mL 25 x 1 syrg Use one a month for b12 injections 3 Each 11 levothyroxine (SYNTHROID) 112 mcg tablet Take 1 tablet by mouth daily before breakfast. 90 tablet 1 lisinopril (ZESTRIL, PRINIVIL) 40 mg tablet Take 1 tablet by mouth once daily. 90 tablet 0 lansoprazole (PREVACID) 30 mg capsule TAKE NECESSARY 90 capsule 3 albuterol HFA (PROVENTIL HFA, VENTOLIN HFA) 90 mcg/actuation inhaler Inhale 2 Puffs as instructed every 4 hours as needed for Wheezing/Shortness of Breath. 1 Inhaler 3 COMPOUNDED PRESCRIPTION 3cc syringe and 25g 1 needle for B12 injections. 50 Each 3 Cholecalciferol, Vitamin D3, 25 mcg (1,000 unit) cap Take 1,000 Units by mouth once daily. Lovastatin 40 mg tablet Take 1 tablet by mouth twice daily. 180 tablet 4 insulin aspart (NOVOLOG) 100 unit/mL soln use as directed in insulin pump up to 50 units daily 5 Vial 3 blood sugar diagnostic (ONETOUCH ULTRA TEST) test strip CHECK BLOOD SUGARS 8 TIMES DAILY 750 Strip 4 COMPOUNDED PRESCRIPTION Metronic Minimed Insulin Pump Supples And life scan testing supplies use as directed 30 Each 3 Lancets Misc lancets testing 8 times daily 750 Each 4 BD ULTRA FINE LANCETS use as directed 300 3 ASPIRIN 81 MG ORAL TAB Take one(1) tablet daily. 0 VITAMIN C 500 MG ORAL TAB Take one(1) tablet daily. 0 cyclobenzaprine (FLEXERIL) 10 mg tablet Take 1 tablet by mouth three times a day as needed for muscle spasm. 12 tablet 0 naproxen (NAPROSYN) 500 mg tablet Take 1 tablet by mouth two times a day as needed (for pain/inflammation). Take with food. 14 tablet 0 cyanocobalamin 1,000 mcg/mL Inject 1 mL subcutaneously once every month. 3 Each 3 fluticasone-salmeterol (ADVAIR DISKUS) 500-50 mcg/dose dsdv Inhale 1 Puff as instructed twice daily. Rinse mouth after use. 180 Each 3 No current facility-administered medications for this visit. PAST SURGICAL HISTORY Procedure Laterality Date APPENDECTOMY COLONOSCOPY 07/12/2016 Repeat colonoscopy 2018 COLONOSCOPY SCREENING 07/13/2021 OOPHORECTOMY PARTIAL/TOTAL UNI/BI 03/2007 right oophorectomy PAST SURGICAL HISTORY OF LAPAROSCOPY TOTAL ABDOMINAL HYSTERECT W/WO RMVL TUBE OVARY 03/2007 Hysterectomy, IVY FAMILY HISTORY Problem Relation Age of Onset No Known Problems Mother other (RENAL CANCER) Father other (Brain Tumors) Sister other (Giallan barrette Syndrome) Sister Colon Cancer Maternal Grandmother and maternal grandfather No Known Problems Maternal Grandfather No Known Problems Paternal Grandmother No Known Problems Paternal Grandfather Social History Tobacco Use Smoking status: Every Day Packs/day: .5 Types: Cigarettes Smokeless tobacco: Never Tobacco comments: seldom Vaping Use Vaping Use: Never used Substance Use Topics Alcohol use: Yes Comment: Occasionally Drug use: No Objective BP 131/83 Pulse 114 Temp 37 C (98.6 F) Resp 16 Wt 75.3 kg (166 lb) LMP 01/13/2007 SpO2 100% BMI 28.49 kg/m Physical Exam Vitals reviewed. Constitutional: Appearance: Normal appearance. HENT: Head: Normocephalic and atraumatic. Cardiovascular: Rate and Rhythm: Normal rate and regular rhythm. Heart sounds: Normal heart sounds. Pulmonary: Effort: Pulmonary effort is normal. Breath sounds: Normal breath sounds. Comments: Patient is tender along the anterior lateral left chest wall. There is no bruising. No crepitus. Chest: Chest wall: Tenderness present. Skin: General: Skin is warm and dry. Findings: No rash. Neurological: Mental Status: She is alert. Assessment and Plan ASSESSMENT/PLAN: 1. Rib injury - ICD9: 959.11, ICD10: S29.9XXA X-ray showed no displaced rib fracture. Discussed possibility of strain/contusion/nondisplaced fracture. Naproxen and Flexeril sent. Discussed the sedation of Flexeril and to not drive or mix this with any other sedating substances. Follow-up with PCP if not improving. - XR RIBS/CHEST 3V AP RIB/OBLS/CXR LEFT Kimberly Frost PA-C documented in this encounter [facility] 08-02-2023 History of Present illness Narrative Radiology Service Progress Note PATIENT NAME: Mayi Mata DATE OF SERVICE: August 02, 2023 TIME: 8:47 AM PATIENT IDENTITY VERIFICATION COMPLETED USING TWO (2) IDENTIFIERS: Name and Date of confirmed by patient verbally. FALL SCREENING: Has the patient had 2 falls in the last year or 1 fall with injury or currently using an Ambulatory Assistive Device (Walker, Cane, Wheelchair, Crutches, etc.)? No PATIENT GENDER DATA: Female. status: : No status: NO. PATIENT RELEVANT IMPLANT DATA REVIEWED: luther device in place PATIENT PRESENTS WITH AN IMPLANTABLE OR ATTACHED WIRELESS SALES REPRESENTATIVE: No RADIOLOGY DEPARTMENT: General X-ray: Exam(s) Completed: Rib X-Ray: Left PERIPHERAL IV DATA: Not applicable SIGNED BY: RT Zaina(R) August 02, 2023 8:47 AM documented in this encounter [facility] 04-05-2023 Miscellaneous Notes Addended by: CARINA LANGE on: 04/05/2023 11:22 AM Modules accepted: Orders documented in this encounter [facility] 03-02-2023 Miscellaneous Notes Patient notified of message below. Amber Negro RN Each change takes about 2 months to stabilize, changes have to be made gradually to avoid risks with heart failure and thyrotoxicosis. Thanks, Isac Boyle PA-C Patient called to report that she is still experiencing severe fatigue. She is wanting to know if there is anything she can do or take to speed up the process of improving her thyroid levels. Please notify patient of plan of care. documented in this encounter [facility] 02-21-2023 History of Present illness Narrative Patient presents with: Follow Up HPI: Patient presents today for office visit for 1 week follow up for swelling to face. After talking with us, she figured out what had happended with her thyroid meds. She thinks she may have missed her thyroid meds for much longer than just a few weeks. She resumed the thryoid meds on her own and feels much better. No palpitations. No chest pain or shortness of breath. She was taking double of her HCTZ thinking it was her levothyroxine med. Swelling has since gone down. She feels back to normal. Did not end up using the doxycycline. Cough has gone away. No fever or chills. No shortness of breath. See previous ov: For about a month has noticed swelling in face and some minimal in other places like hands. Feels like muscles are tight. Cough non productive. Some shortness of breath. Denies palpitations. Voice hoarse all the time no heartburn or reflux. No sore throat. Denies fevers, abd pain/bloating. Waxes and wanes. Some drainage. Some sinus pressure No ear pain. Slightly winded. No leg edema. No arm or hand edema. She feels her swelling in her face is due to not sleeping well and teeth grinding. Some eye lid swelling. May have missed her thyroid the last two weeks. No chest pain. No palpitations. Her sugars have been good. Following closely with Dr. Engel. She has not had to use albuterol. Is using her advair. Has had some weight gain since her last visit here but has been seven months. Slight change in taste or smell like when she has a cold. No PND. No neck swelling. Chest xry: Minimal atelectasis or fibrosis within the right middle lobe and lingula. Follow-up to document resolution recommended Component Latest Ref Rng & Units 02/14/2023 02/19/2023 WBC 3.70 - 11.00 k/uL 8.30 RBC 3.90 - 5.20 m/uL 3.98 Hemoglobin 11.5 - 15.5 g/dL 13.3 Hematocrit 36.0 - 46.0 % 39.3 MCV 80.0 - 100.0 fL 98.7 MCH 26.0 - 34.0 pg 33.4 MCHC 30.5 - 36.0 g/dL 33.8 RDW-CV 11.5 - 15.0 % 14.4 Platelet Count 150 - 400 k/uL 289 MPV 9.0 - 12.7 fL 11.2 Neut% % 67.7 Abs Neut (ANC) 1.45 - 7.50 k/uL 5.62 Lymph% % 25.3 Abs Lymph 1.00 - 4.00 k/uL 2.10 Davis% % 3.5 Abs Davis <0.87 k/uL 0.29 Eosin% % 1.9 Abs Eosin <0.46 k/uL 0.16 Baso% % 1.1 Abs Baso <0.11 k/uL 0.09 Immature Gran % % 0.5 IMMATURE GRANS (ABS) <0.10 k/uL 0.04 NRBC /100 WBC 0.0 Absolute nRBC <0.01 k/uL <0.01 DTYPE Auto Protein, Total 6.3 - 8.0 g/dL 6.7 7.6 Albumin 3.9 - 4.9 g/dL 4.4 4.9 Calcium 8.5 - 10.2 mg/dL 9.6 9.7 Bilirubin, Total 0.2 - 1.3 mg/dL <0.2 (L) 0.6 Alkaline Phosphatase 34 - 123 U/L 113 94 AST 13 - 35 U/L 73 (H) 49 (H) ALT 7 - 38 U/L 50 (H) 29 Glucose 74 - 99 mg/dL 246 (H) 243 (H) BUN 7 - 21 mg/dL 11 10 Creatinine 0.58 - 0.96 mg/dL 0.89 0.85 Sodium 136 - 144 mmol/L 125 (L) 130 (L) Potassium 3.7 - 5.1 mmol/L 4.5 4.2 Chloride 97 - 105 mmol/L 93 (L) 93 (L) CO2 22 - 30 mmol/L 21 (L) 22 Anion Gap 9 - 18 mmol/L 11 15 eGFR >=60 mL/min/1.73m 75 79 Bilirubin, Conjug <0.2 mg/dL <0.2 T4 5.5 - 10.2 ug/dL 1.2 (L) T4 Uptake 0.91 - 1.19 1.38 (H) FTI 5.3 - 10.8 ug/dL <1.0 (L) TSH 0.270 - 4.200 mIU/L 273.000 (H) NT Pro BNP <125 pg/mL 78 MEDICATIONS: Current Outpatient Medications Medication Sig multivitamin tablet Take 1 tablet by mouth once daily. doxycycline monohydrate 100 mg tablet Take 1 tablet by mouth twice daily for 10 days. escitalopram oxalate (LEXAPRO) 10 mg tablet Take 1 tablet by mouth once daily. estradiol (E2) emollient cream 0.2 mg/gram (CPD) Insert fingertip amount vaginally every other day at bedtime cyanocobalamin 1,000 mcg/mL Inject 1 mL subcutaneously once every month. phenazopyridine (PYRIDIUM, GERIDIUM) 200 mg tablet Take 1 tablet by mouth three times daily as needed. Insulin Syringe-Needle U-100 (BD INSULIN SYRINGE) 1 mL 25 x 1 syrg Use one a month for b12 injections fluticasone-salmeterol (ADVAIR DISKUS) 500-50 mcg/dose dsdv Inhale 1 Puff as instructed twice daily. Rinse mouth after use. levothyroxine (SYNTHROID) 112 mcg tablet Take 1 tablet by mouth daily before breakfast. lisinopril (ZESTRIL, PRINIVIL) 40 mg tablet Take 1 tablet by mouth once daily. lansoprazole (PREVACID) 30 mg capsule TAKE NECESSARY albuterol HFA (PROVENTIL HFA, VENTOLIN HFA) 90 mcg/actuation inhaler Inhale 2 Puffs as instructed every 4 hours as needed for Wheezing/Shortness of Breath. cyanocobalamin (VITAMIN B-12) 1,000 mcg tab Take 1 tablet by mouth once daily. COMPOUNDED PRESCRIPTION 3cc syringe and 25g 1 needle for B12 injections. metroNIDAZOLE (METROGEL) 0.75 % Topical Gel APPLY 1 APPLICATION TO AFFECTED AREA TWO TIMES A DAY Cholecalciferol, Vitamin D3, 25 mcg (1,000 unit) cap Take 1,000 Units by mouth once daily. Lovastatin 40 mg tablet Take 1 tablet by mouth twice daily. insulin aspart (NOVOLOG) 100 unit/mL soln use as directed in insulin pump up to 50 units daily blood sugar diagnostic (JaschaTOUCH ULTRA TEST) test strip CHECK BLOOD SUGARS 8 TIMES DAILY COMPOUNDED PRESCRIPTION Metronic Minimed Insulin Pump Supples And life scan testing supplies use as directed Lancets Misc lancets testing 8 times daily BD ULTRA FINE LANCETS use as directed ASPIRIN 81 MG ORAL TAB Take one(1) tablet daily. VITAMIN C 500 MG ORAL TAB Take one(1) tablet daily. No current facility-administered medications for this visit. 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 Other acne Other vitamin B12 deficiency anemia Snoring Type I (juvenile type) diabetes mellitus without mention of complication, not stated as uncontrolled (HCC) Unspecified asthma, with status asthmaticus Unspecified hypothyroidism PAST SURGICAL HISTORY Procedure Laterality Date APPENDECTOMY COLONOSCOPY 07/12/2016 Repeat colonoscopy 2018 COLONOSCOPY SCREENING 07/13/2021 OOPHORECTOMY PARTIAL/TOTAL UNI/BI 03/2007 right oophorectomy PAST SURGICAL HISTORY OF LAPAROSCOPY TOTAL ABDOMINAL HYSTERECT W/WO RMVL TUBE OVARY 03/2007 Hysterectomy, IVY FAMILY HISTORY Problem Relation Age of Onset No Known Problems Mother other (RENAL CANCER) Father other (Brain Tumors) Sister other (Giallan barrette Syndrome) Sister Colon Cancer Maternal Grandmother and maternal grandfather No Known Problems Maternal Grandfather No Known Problems Paternal Grandmother No Known Problems Paternal Grandfather Social History Tobacco Use Smoking status: Every Day Packs/day: .5 Types: Cigarettes Smokeless tobacco: Never Tobacco comments: seldom Vaping Use Vaping Use: Never used Substance Use Topics Alcohol use: Yes Comment: Occasionally Drug use: No Reviewed current medications, allergies, past medical history, surgical history, family history and social history today. REVIEW OF SYSTEMS All other reviewed and negative other than HPI. VITALS: BP 136/78 Pulse 103 Ht 162.6 cm (5' 4) Wt 75.8 kg (167 lb 3.2 oz) LMP 01/13/2007 SpO2 98% BMI 28.70 kg/m Last 4 Encounter Wt Readings: Date: Wt: 02/14/2023 76.7 kg (169 lb) 08/17/2022 68.9 kg (152 lb) 05/07/2022 69.9 kg (154 lb) 04/24/2022 70.2 kg (154 lb 12.8 oz) PHYSICAL EXAMINATION: General appearance: Well appearing, alert, in no acute distress, well-hydrated, well nourished. Skin: Skin color, texture, turgor normal, no suspicious rashes or lesions Head: Normocephalic, no masses, lesions, tenderness or abnormalities Lungs: Lungs clear to auscultation. No wheezing, rhonchi, rales Heart: RRR without murmur, gallop, or rubs. No ectopy Abdomen: Normal abdominal exam, Abdomen soft, non-tender. Bowel sounds normal. No masses, organomegaly Extremities: No deformities, edema, skin discoloration, clubbing or cyanosis. Good capillary refill. Edema is better. ASSESSMENT/PLAN: 1. Type 1 diabetes mellitus without complication (HCC) - ICD9: 250.01, ICD10: E10.9 (primary diagnosis) - stable. 2. Acquired hypothyroidism - ICD9: 244.9, ICD10: E03.9 - since now currently tolerating her intended dose. Continue on meds. Recheck labs in three weeks. - TSH BLD - T4/FTI/T4U 3. Hyponatremia - ICD9: 276.1, ICD10: E87.1 - follow. Bp is ok off of diuretic. - BASIC METABOLIC PNL 4. Abnormal x-ray - ICD9: 793.99, ICD10: R93.89 - will follow. - XR CHEST 2V FRONTAL/LAT 5. Pure hypercholesterolemia - ICD9: 272.0, ICD10: E78.00 - watch diet. 6. Elevated liver enzymes - ICD9: 790.5, ICD10: R74.8 - recheck labs. - HEPATIC FUNCTION PNL William Steinberg MD documented in this encounter [facility] 02-15-2023 Miscellaneous Notes Patient notified of results. She will hold medication, recheck lab, and has f/u appt. Not all her labs are back, however, her sodium is actually pretty low. Hold her hctz. Recheck in the office in one week with me. Get bmp on Tuesday or Tuesday after holding meds. documented in this encounter [facility] 02-14-2023 History of Present illness Narrative Radiology Service Progress Note PATIENT NAME: Mayi Mata DATE OF SERVICE: February 14, 2023 TIME: 4:14 PM PATIENT IDENTITY VERIFICATION COMPLETED USING TWO (2) IDENTIFIERS: Name and Date of confirmed by patient verbally. FALL SCREENING: Has the patient had 2 falls in the last year or 1 fall with injury or currently using an Ambulatory Assistive Device (Walker, Cane, Wheelchair, Crutches, etc.)? No PATIENT GENDER DATA: Female. status: : No status: NO. PATIENT RELEVANT IMPLANT DATA REVIEWED: Not Applicable RADIOLOGY DEPARTMENT: General X-ray: Exam(s) Completed: Chest X-Ray PERIPHERAL IV DATA: Not applicable SIGNED BY: RT Zaina(R) February 14, 2023 4:14 PM documented in this encounter [facility] 02-14-2023 History of Present illness Narrative Patient presents with: Edema HPI: Patient presents today for office visit for an acute visit. For about a month has noticed swelling in face and some minimal in other places like hands. Feels like muscles are tight. Cough non productive. Some shortness of breath. Denies palpitations. Voice hoarse all the time no heartburn or reflux. No sore throat. Denies fevers, abd pain/bloating. Waxes and wanes. Some drainage. Some sinus pressure No ear pain. Slightly winded. No leg edema. No arm or hand edema. She feels her swelling in her face is due to not sleeping well and teeth grinding. Some eye lid swelling. May have missed her thyroid the last two weeks. No chest pain. No palpitations. Her sugars have been good. Following closely with Dr. Engel. She has not had to use albuterol. Is using her advair. Has had some weight gain since her last visit here but has been seven months. Slight change in taste or smell like when she has a cold. No PND. No neck swelling. MEDICATIONS: Current Outpatient Medications Medication Sig escitalopram oxalate (LEXAPRO) 10 mg tablet Take 1 tablet by mouth once daily. estradiol (E2) emollient cream 0.2 mg/gram (CPD) Insert fingertip amount vaginally every other day at bedtime cyanocobalamin 1,000 mcg/mL Inject 1 mL subcutaneously once every month. phenazopyridine (PYRIDIUM, GERIDIUM) 200 mg tablet Take 1 tablet by mouth three times daily as needed. Insulin Syringe-Needle U-100 (BD INSULIN SYRINGE) 1 mL 25 x 1 syrg Use one a month for b12 injections fluticasone-salmeterol (ADVAIR DISKUS) 500-50 mcg/dose dsdv Inhale 1 Puff as instructed twice daily. Rinse mouth after use. levothyroxine (SYNTHROID) 112 mcg tablet Take 1 tablet by mouth daily before breakfast. lisinopril (ZESTRIL, PRINIVIL) 40 mg tablet Take 1 tablet by mouth once daily. lansoprazole (PREVACID) 30 mg capsule TAKE NECESSARY albuterol HFA (PROVENTIL HFA, VENTOLIN HFA) 90 mcg/actuation inhaler Inhale 2 Puffs as instructed every 4 hours as needed for Wheezing/Shortness of Breath. cyanocobalamin (VITAMIN B-12) 1,000 mcg tab Take 1 tablet by mouth once daily. COMPOUNDED PRESCRIPTION 3cc syringe and 25g 1 needle for B12 injections. metroNIDAZOLE (METROGEL) 0.75 % Topical Gel APPLY 1 APPLICATION TO AFFECTED AREA TWO TIMES A DAY Cholecalciferol, Vitamin D3, 25 mcg (1,000 unit) cap Take 1,000 Units by mouth once daily. Lovastatin 40 mg tablet Take 1 tablet by mouth twice daily. hydrochlorothiazide (HYDRODIURIL, ESIDRIX) 25 mg tablet Take 1 tablet by mouth once daily. insulin aspart (NOVOLOG) 100 unit/mL soln use as directed in insulin pump up to 50 units daily blood sugar diagnostic (JaschaTOUCH ULTRA TEST) test strip CHECK BLOOD SUGARS 8 TIMES DAILY COMPOUNDED PRESCRIPTION Metronic Minimed Insulin Pump Supples And life scan testing supplies use as directed Lancets Misc lancets testing 8 times daily BD ULTRA FINE LANCETS use as directed ASPIRIN 81 MG ORAL TAB Take one(1) tablet daily. VITAMIN C 500 MG ORAL TAB Take one(1) tablet daily. No current facility-administered medications for this visit. 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 Other acne Other vitamin B12 deficiency anemia Snoring Type I (juvenile type) diabetes mellitus without mention of complication, not stated as uncontrolled (HCC) Unspecified asthma, with status asthmaticus Unspecified hypothyroidism PAST SURGICAL HISTORY Procedure Laterality Date APPENDECTOMY COLONOSCOPY 07/12/2016 Repeat colonoscopy 2018 COLONOSCOPY SCREENING 07/13/2021 OOPHORECTOMY PARTIAL/TOTAL UNI/BI 03/2007 right oophorectomy PAST SURGICAL HISTORY OF LAPAROSCOPY TOTAL ABDOMINAL HYSTERECT W/WO RMVL TUBE OVARY 03/2007 Hysterectomy, IVY FAMILY HISTORY Problem Relation Age of Onset No Known Problems Mother other (RENAL CANCER) Father other (Brain Tumors) Sister other (Giallan barrette Syndrome) Sister Colon Cancer Maternal Grandmother and maternal grandfather No Known Problems Maternal Grandfather No Known Problems Paternal Grandmother No Known Problems Paternal Grandfather Social History Tobacco Use Smoking status: Some Days Packs/day: .5 Types: Cigarettes Last attempt to quit: 06/28/2010 Years since quittin.6 Smokeless tobacco: Never Tobacco comments: seldom Vaping Use Vaping Use: Never used Substance Use Topics Alcohol use: Yes Comment: Occasionally Drug use: No Reviewed current medications, allergies, past medical history, surgical history, family history and social history today. REVIEW OF SYSTEMS All other reviewed and negative other than HPI. VITALS: BP 138/82 Pulse 71 Wt 76.7 kg (169 lb) LMP 01/13/2007 SpO2 97% BMI 29.01 kg/m Last 4 Encounter Wt Readings: Date: Wt: 08/17/2022 68.9 kg (152 lb) 05/07/2022 69.9 kg (154 lb) 04/24/2022 70.2 kg (154 lb 12.8 oz) 09/15/2021 71.2 kg (157 lb) PHYSICAL EXAMINATION: General appearance: Well appearing, alert, in no acute distress, well-hydrated, well nourished. Skin: Skin color, texture, turgor normal, no suspicious rashes or lesions Head: Normocephalic, no masses, lesions, tenderness or abnormalities Eyes: Anicteric sclera. Pupils are equally round and reactive to light. Extraocular movements are intact. , lids are puffy. Ears: External ears normal, canals clear Nose/Sinuses: slightly tender over sinuses. Oropharynx: negative. Neck: Supple, no adenopathy; thyroid symmetric, normal size, no bruits Lungs: Lungs clear to auscultation. No wheezing, rhonchi, rales Heart: RRR without murmur, gallop, or rubs. No ectopy Abdomen: Normal abdominal exam, Abdomen soft, non-tender. Bowel sounds normal. No masses, organomegaly Extremities: No deformities, edema, skin discoloration, clubbing or cyanosis. Good capillary refill. ASSESSMENT/PLAN: 1. Subacute cough - ICD9: 786.2, ICD10: R05.2 (primary diagnosis) - not sure if could represent an untreated bronchitic infection. But do additional work given swelling. - NT PRO BNP - XR CHEST 2V FRONTAL/LAT - DOXYCYCLINE MONOHYDRATE 100 MG TABLET 2. Fatigue, unspecified type - ICD9: 780.79, ICD10: R53.83 - as above. Check tsh - CBC + DIFF - COMP METABOLIC PANEL 3. Mild intermittent asthma, uncomplicated - ICD9: 493.90, ICD10: J45.20 - as above. - NT PRO BNP 4. Type 1 diabetes mellitus without complication (HCC) - ICD9: 250.01, ICD10: E10.9 - sugars have been stable. - NT PRO BNP 5. Acquired hypothyroidism - ICD9: 244.9, ICD10: E03.9 ? Could her noncompliance with meds be contributing to swelling etc. - TSH BLD - T4/FTI/T4U 6. Weight gain - ICD9: 783.1, ICD10: R63.5 - as above. - NT PRO BNP William Steinberg MD documented in this encounter [facility] 09-29-2022 Miscellaneous Notes Called patient. Verified name and date of . Informed of order- verbalizes understanding. Erin Wilkins LPN Patient called with concerns that she has a yeast infection and is requesting something be called in for it to [facility]. Hali Paredes RN documented in this encounter [facility] 09-24-2022 Miscellaneous Notes Called patient. Verified name and date of . Informed of results/orders. States she doesn't even feel like she has anything- has been drinking a lot of water. Erin Wilkins LPN Please, notify patient the urine culture was positive Treatment e-scripted: Keflex 500 mg x 7 days Thank you, VILMA Lobo, MT, LATIA documented in this encounter [facility] 09-07-2022 Miscellaneous Notes Pt calls to report that insurance requires her to have rx sent to mail order pharmacy. Patient has been identified by name and date of : Yes Requested Prescriptions Pending Prescriptions Disp Refills escitalopram oxalate (LEXAPRO) 10 mg tablet 90 tablet 3 Sig: Take 1 tablet by mouth once daily. RX INSTRUCTIONS: Patient aware RX will be sent to pharmacy. No need to notify patient. Lidya Smalls LPN documented in this encounter [facility] 08-24-2022 Miscellaneous Notes Patient returned call and received the previous message. She voiced understanding. She is currently on a cruise but will begin the regiment when she returns. Left detailed message to inform of positive results and instructions. Pt to call if she has any questions. Aiyana Ware Called patient. No answer- left message and aware that MyChart message sent yesterday and to call if any questions. Erin Wilkins LPN Called patient. No answer- left message that I am sending MyChart message and to call if any questions. Erin Wilkins LPN Please, notify patient the urine culture was positive Treatment e-scripted: Macrobid x 10 days And will need a 2 week post-treatment urine culture ( orders are in) Thank you, VILMA Lobo, MT, LATIA documented in this encounter [facility] 08-17-2022 Instructions Carina Lange PA-C - 08/17/2022 8:56 AM EST > 1 year Appt w/ B. VILMA Lange, LATIA SALAS for annual follow-up and refills. documented in this encounter [facility] 08-17-2022 History of Present illness Narrative Images from the original note were not included. [facility] ESTABLISHED PATIENT CLINIC NOTE Some elements copied from his previous note, which have been updated where appropriate, and all reflect current medical decision making from date of this visit. SERVICE DATE: 08/17/2022 SERVICE TIME: 8:48 AM NAME: Mayi Mata CHIEF COMPLAINT: Follow up for Atrophic Vaginitis HISTORY OF PRESENT ILLNESS: Mayi Mata is a 57 year old female an established patient following up for AV, she has been using topical Estrogen and getting Probiotic The patient reports she is much improved and has not had any Dysuria or UTI in 3 months. Dicussed using the cream Daily or every other day to maintain progress. She will call the office to have a urine culture placed if she has UTI symptoms Continue with Topical Estrogen, urine today looks like she may have UTI so sent culture out today LUTS: DYSURIA: yes URGENCY: Yes FREQUENCY:4 per day NOCTURIA: 0 per night STRAINING TO VOID: Yes EMPTIES COMPLETELY: No UTI: No GROSS HEMATURIA: no UA DIPSTICK POSITIVE ONLY: no Other symptoms: LABS: Hematocrit (%) Date Value 01/17/2020 39.6 10/12/2018 40.2 03/22/2017 41.6 05/19/2016 36.4 No results found for: PSA No results found for: TESTOST No results found for: PSA Creatinine Date Value Ref Range Status 08/27/2019 0.70 0.58 - 0.96 mg/dL Final 05/23/2019 0.82 0.58 - 0.96 mg/dL Final 03/22/2017 0.66 0.58 - 0.96 mg/dL Final 12/10/2016 0.71 0.58 - 0.96 mg/dL Final MEDICATIONS: escitalopram oxalate (LEXAPRO) 10 mg tablet Take 1 tablet by mouth once daily. estradiol (E2) emollient cream 0.2 mg/gram (CPD) Insert fingertip amount vaginally every other day at bedtime cyanocobalamin 1,000 mcg/mL Inject 1 mL subcutaneously once every month. phenazopyridine (PYRIDIUM, GERIDIUM) 200 mg tablet Take 1 tablet by mouth three times daily as needed. Insulin Syringe-Needle U-100 (BD INSULIN SYRINGE) 1 mL 25 x 1 syrg Use one a month for b12 injections fluticasone-salmeterol (ADVAIR DISKUS) 500-50 mcg/dose dsdv Inhale 1 Puff as instructed twice daily. Rinse mouth after use. levothyroxine (SYNTHROID) 112 mcg tablet Take 1 tablet by mouth daily before breakfast. lisinopril (ZESTRIL, PRINIVIL) 40 mg tablet Take 1 tablet by mouth once daily. lansoprazole (PREVACID) 30 mg capsule TAKE NECESSARY albuterol HFA (PROVENTIL HFA, VENTOLIN HFA) 90 mcg/actuation inhaler Inhale 2 Puffs as instructed every 4 hours as needed for Wheezing/Shortness of Breath. cyanocobalamin (VITAMIN B-12) 1,000 mcg tab Take 1 tablet by mouth once daily. COMPOUNDED PRESCRIPTION 3cc syringe and 25g 1 needle for B12 injections. metroNIDAZOLE (METROGEL) 0.75 % Topical Gel APPLY 1 APPLICATION TO AFFECTED AREA TWO TIMES A DAY Cholecalciferol, Vitamin D3, 25 mcg (1,000 unit) cap Take 1,000 Units by mouth once daily. Lovastatin 40 mg tablet Take 1 tablet by mouth twice daily. hydrochlorothiazide (HYDRODIURIL, ESIDRIX) 25 mg tablet Take 1 tablet by mouth once daily. insulin aspart (NOVOLOG) 100 unit/mL soln use as directed in insulin pump up to 50 units daily blood sugar diagnostic ([employer] MediaUCH ULTRA TEST) test strip CHECK BLOOD SUGARS 8 TIMES DAILY COMPOUNDED PRESCRIPTION Metronic Minimed Insulin Pump Supples And life scan testing supplies use as directed Lancets [facility] lancets testing 8 times daily BD ULTRA FINE LANCETS use as directed ASPIRIN 81 MG ORAL TAB Take one(1) tablet daily. VITAMIN C 500 MG ORAL TAB Take one(1) tablet daily. 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 Other acne Other vitamin B12 deficiency anemia Snoring Type I (juvenile type) diabetes mellitus without mention of complication, not stated as uncontrolled (HCC) Unspecified asthma, with status asthmaticus Unspecified hypothyroidism PAST SURGICAL HISTORY: PAST SURGICAL HISTORY Procedure Laterality Date APPENDECTOMY COLONOSCOPY 07/12/2016 Repeat colonoscopy 2018 COLONOSCOPY SCREENING 07/13/2021 OOPHORECTOMY PARTIAL/TOTAL UNI/BI 03/2007 right oophorectomy PAST SURGICAL HISTORY OF LAPAROSCOPY TOTAL ABDOMINAL HYSTERECT W/WO RMVL TUBE OVARY 03/2007 Hysterectomy, IVY FAMILY HISTORY: FAMILY HISTORY Problem Relation Age of Onset No Known Problems Mother other (RENAL CANCER) Father other (Brain Tumors) Sister other (Giallan barrette Syndrome) Sister Colon Cancer Maternal Grandmother and maternal grandfather No Known Problems Maternal Grandfather No Known Problems Paternal Grandmother No Known Problems Paternal Grandfather SOCIAL HISTORY: Social Connections: Moderately Integrated Frequency of Communication with Friends and Family: More than three times a week Frequency of Social Gatherings with Friends and Family: Twice a week Attends Worship Services: More than 4 times per year Active Member of Clubs or Organizations: No Attends Club or Organization Meetings: Never Marital Status: REVIEW OF SYSTEMS: GENERAL: No fever, chills, weight loss, or fatigue. All other systems reviewed and are negative PHYSICAL EXAMINATION: Blood pressure 132/82, pulse 70, temperature 37.1 C (98.7 F), temperature source Temporal, resp. rate 12, height 162.6 cm (5' 4), weight 68.9 kg (152 lb), last menstrual period 01/13/2007, SpO2 96 %. GENERAL: WNL nutrition, no deformities, healthy appearing PROBLEM LIST REVIEW: Yes LABS: Results for orders placed or performed in visit on 08/17/22 UA DIP, URINE (POC) Result Value Ref Range GLUCOSE UA (POCT) Negative Negative mg/dL BILIRUBIN UA (POCT) Negative Negative KETONE UA (POCT) Negative Negative mg/dL SPECIFIC GRAVITY UA (POCT) >=1.030 1.005 - 1.030 HEMOGLOBIN/BLOOD UA (POCT) Negative Negative PH UA (POCT) 6.0 4.5 - 8.0 PROTEIN UA (POCT) 30 (A) Negative mg/dL UROBILINOGEN UA (POCT) 0.2 Normal E.U./dL NITRITE UA (POCT) Positive (A) Negative LEUKOCYTES UA (POCT) Trace (A) Negative COLOR UA (POCT) Dark yellow CLARITY UA (POCT) Slightly Cloudy PROCEDURES: PVR: 0 ml IMAGING: IMPRESSION/PLAN: 57 year old female with 1. Atrophic vaginitis - ICD9: 627.3, ICD10: N95.2 > Continue with Topical Estrogen - UCP (SD) > Urine Culture sent based on UA findings > Will call if UTI symptoms to get culture orders place at lab > 1 year Appt w/ B. VILMA Lange MT, PA-C for annual follow-up and refills. VILMA Lobo MT, PA-C Verified name and date of . CC Post Void Residual HPI: Mayi Mata is a 57 year old female. The patient is here now for an appointment with VILMA Lobo MT, PA-COV. Procedure: Explained procedure to patient and verbalizes understanding. Performed a PVR. Patient urinated and instructed to empty bladder as much as possible just prior to having PVR done using bladder ultrasound scanner. Results of scan: 0 mL The patient tolerated the procedure well. Plan: Appointment with Carina. documented in this encounter [facility] 08-11-2022 Miscellaneous Notes The following approved medication requests have been transmitted electronically. Requested Prescriptions Pending Prescriptions Disp Refills escitalopram oxalate (LEXAPRO) 10 mg tablet 90 tablet 3 Sig: Take 1 tablet by mouth once daily. Nikko Bowers APRN.CNP Patient has been identified by name and date of : Yes, Nicki Mckeon RN Date 08/11/2022 Time 10:09 am Patient phones for refill(s): Requested Prescriptions Pending Prescriptions Disp Refills escitalopram oxalate (LEXAPRO) 10 mg tablet 90 tablet 3 Sig: Take 1 tablet by mouth once daily. Date of last office visit with pcp: 12/15/2021 Future appt: none Last 2 Encounter Wt Readings: Date: Wt: 05/07/2022 69.9 kg (154 lb) 04/24/2022 70.2 kg (154 lb 12.8 oz) Previous labs/tests for medication: Blood Pressure: BUN (mg/dL) Date Value 08/27/2019 8 Sodium (mmol/L) Date Value 08/27/2019 138 Last 1 Encounter BP Readings: Date: BP: 05/07/2022 112/80 Liver Function: ALT (U/L) Date Value 08/27/2019 11 AST (U/L) Date Value 08/27/2019 27 Please advise. Thank you. Nicki Mckeon RN documented in this encounter [facility] 08-03-2022 Miscellaneous Notes Patient phones requesting refills as follows: Requested Prescriptions Pending Prescriptions Disp Refills estradiol (E2) emollient cream 0.2 mg/gram (CPD) 20 g 3 Sig: Insert fingertip amount vaginally every other day at bedtime Please review and advise. Sarah Palma RN documented in this encounter [facility] 07-26-2022 Procedure note [facility] 07-26-2022 Procedure note [facility] 05-18-2022 Miscellaneous Notes Carina Lange PA-C Refill sent to [facility] Patient aware. Geni Baltazar RN Mayi called. On 04/26/2022, she was given Pyridium 200 mg #20/1 refill. She advised that she has used all of the medication and when she is off of it, she is having pain if she is not on the medication. She is asking for a refill to be sent to [facility] in [place]. Geni Baltazar, RN documented in this encounter [facility] 05-12-2022 Miscellaneous Notes Spoke with patient. Symptoms are improving. She plans on finishing the course of pyridium and diflucan. Will call if symptoms recur. Tana Rodrigues LPN Called patient. No answer- left message to call clinic. Erin Wilkins LPN Her urine culture was negative, she asked for Pyridium and Diflucan because it ws yeast infection. And if those are not working , I don;t have and explanation. For her symptoms continuing, can try another urine culture VILMA Lobo, MARITZA, LATIA Patient called in requesting information regarding plan of care. Patient stated she called in yesterday giving update as shown below. Patient states she till has not received message back. Informed patient that carina santa was not a [place] location yesterday and is in office today. Patient verbalized understanding. Please advise and contact patient. Radha Obrien LPN Patient called in with update from Fridays appointment. She reports that she is about the same. Pain is worse in the morning. She continues with medication that was prescribed. documented in this encounter [facility] 04-26-2022 Miscellaneous Notes Patient returned call and went over results, notes from [facility] provider with understanding. Left message for patient to return call. Mindi Auguste Please call and let patient know she does not have a uti on culture. She can d/c antibiotics. Recommend follow up with pcp. documented in this encounter [facility] 04-24-2022 History of Present illness Narrative Subjective HPI Mayi Mata is a 57 year old female who presents with pelvic pressure, pain with urination for the past 2 hours. She has already taken AZO today. She denies fever, back pain, N/V/D. She stopped drinking pop years ago and yesterday decided to drink a diet Coke, which she feels contributed to these symptoms today. Review of Systems Constitutional: Negative for chills and fever. Respiratory: Negative. Cardiovascular: Negative. Gastrointestinal: Negative for abdominal pain, diarrhea, nausea and vomiting. Genitourinary: Positive for dysuria, frequency and urgency. Negative for flank pain and hematuria. Musculoskeletal: Negative for back pain. 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 Other acne Other vitamin B12 deficiency anemia Snoring Type I (juvenile type) diabetes mellitus without mention of complication, not stated as uncontrolled (HCC) Unspecified asthma, with status asthmaticus Unspecified hypothyroidism PAST SURGICAL HISTORY Procedure Laterality Date APPENDECTOMY COLONOSCOPY 07/12/2016 Repeat colonoscopy 2018 COLONOSCOPY SCREENING 07/13/2021 OOPHORECTOMY PARTIAL/TOTAL UNI/BI 03/2007 right oophorectomy PAST SURGICAL HISTORY OF LAPAROSCOPY TOTAL ABDOMINAL HYSTERECT W/WO RMVL TUBE OVARY 03/2007 Hysterectomy, IVY ALLERGIES Sertraline MEDICATIONS Insulin Syringe-Needle U-100 (BD INSULIN SYRINGE) 1 mL 25 x 1 syrg Use one a month for b12 injections escitalopram oxalate (LEXAPRO) 10 mg tablet Take 1 tablet by mouth once daily. estradiol (E2) emollient cream 0.2 mg/gram (CPD) Insert fingertip amount vaginally every other day at bedtime fluticasone-salmeterol (ADVAIR DISKUS) 500-50 mcg/dose dsdv Inhale 1 Puff as instructed twice daily. Rinse mouth after use. cyanocobalamin 1,000 mcg/mL Inject 1 mL subcutaneously once every month. levothyroxine (SYNTHROID) 112 mcg tablet Take 1 tablet by mouth daily before breakfast. lisinopril (ZESTRIL, PRINIVIL) 40 mg tablet Take 1 tablet by mouth once daily. lansoprazole (PREVACID) 30 mg capsule TAKE NECESSARY albuterol HFA (PROVENTIL HFA, VENTOLIN HFA) 90 mcg/actuation inhaler Inhale 2 Puffs as instructed every 4 hours as needed for Wheezing/Shortness of Breath. cyanocobalamin (VITAMIN B-12) 1,000 mcg tab Take 1 tablet by mouth once daily. COMPOUNDED PRESCRIPTION 3cc syringe and 25g 1 needle for B12 injections. Cholecalciferol, Vitamin D3, 25 mcg (1,000 unit) cap Take 1,000 Units by mouth once daily. Lovastatin 40 mg tablet Take 1 tablet by mouth twice daily. hydrochlorothiazide (HYDRODIURIL, ESIDRIX) 25 mg tablet Take 1 tablet by mouth once daily. insulin aspart (NOVOLOG) 100 unit/mL soln use as directed in insulin pump up to 50 units daily blood sugar diagnostic (ONETOUCH ULTRA TEST) test strip CHECK BLOOD SUGARS 8 TIMES DAILY COMPOUNDED PRESCRIPTION Metronic Minimed Insulin Pump Supples And life scan testing supplies use as directed Lancets [facility] lancets testing 8 times daily BD ULTRA FINE LANCETS use as directed ASPIRIN 81 MG ORAL TAB Take one(1) tablet daily. VITAMIN C 500 MG ORAL TAB Take one(1) tablet daily. nitrofurantoin monohydrate and macrocrystal (MACROBID) 100 mg capsule Take 1 capsule by mouth twice daily for 5 days. metroNIDAZOLE (METROGEL) 0.75 % Topical Gel APPLY 1 APPLICATION TO AFFECTED AREA TWO TIMES A DAY (Patient not taking: Reported on 08/28/2020) FAMILY HISTORY Problem Relation Age of Onset No Known Problems Mother other (RENAL CANCER) Father other (Brain Tumors) Sister other (Giallan barrette Syndrome) Sister Colon Cancer Maternal Grandmother and maternal grandfather No Known Problems Maternal Grandfather No Known Problems Paternal Grandmother No Known Problems Paternal Grandfather Social History Tobacco Use Smoking status: Some Days Packs/day: 0.50 Types: Cigarettes Last attempt to quit: 06/28/2010 Years since quittin.8 Smokeless tobacco: Never Tobacco comments: seldom Vaping Use Vaping Use: Never used Substance Use Topics Alcohol use: Yes Comment: Occasionally Drug use: No Objective Physical Exam Vitals and nursing note reviewed. Constitutional: Appearance: Normal appearance. Cardiovascular: Rate and Rhythm: Normal rate and regular rhythm. Heart sounds: Normal heart sounds. Pulmonary: Effort: Pulmonary effort is normal. Breath sounds: Normal breath sounds. Abdominal: General: There is no distension. Palpations: Abdomen is soft. There is no mass. Tenderness: There is abdominal tenderness in the suprapubic area. There is no right CVA tenderness, left CVA tenderness or guarding. Skin: General: Skin is warm and dry. Neurological: Mental Status: She is alert. ASSESSMENT/PLAN: 1. Pain with urination - ICD9: 788.1, ICD10: R30.9 acute - UA positive for diallo esterase, hematuria, proteinuria, nitrates, and patient took AZO so urine dip is not reliable. Will treat based on symptoms and send for culture. - Send urine for culture - Begin treatment with Macrobid 100 mg BID for 5 days - Patient education for prevention given - UA DIP, URINE (POC) - URINE CULTURE - Follow-up with your PCP in 3-5 days if symptoms have not improved or sooner if symptoms worsen - Discussed red flags and need for immediate medical evaluation if any occur. - Discussed supportive care treatment with fluids, rest and analgesia. - Discussed expected course of illness Aniyah Cleveland APRN.PAM documented in this encounter [facility] 04-24-2022 Instructions Aniyah Cleveland APRN.CNP - 04/24/2022 8:36 AM EDT ASSESSMENT/PLAN: 1. Pain with urination - ICD9: 788.1, ICD10: R30.9 acute - UA positive for diallo esterase, hematuria, proteinuria, nitrates, and patient took AZO so urine dip is not reliable. Will treat based on symptoms and send for culture. - Send urine for culture - Begin treatment with Macrobid 100 mg BID for 5 days - Patient education for prevention given - UA DIP, URINE (POC) - URINE CULTURE - Follow-up with your PCP in 3-5 days if symptoms have not improved or sooner if symptoms worsen - Discussed red flags and need for immediate medical evaluation if any occur. - Discussed supportive care treatment with fluids, rest and analgesia. - Discussed expected course of illness Aniyah Cleveland APRN.[facility] PATIENT INFO BLADDER INFECTION OVERVIEW Bladder infections are one of the most common infections, causing symptoms of burning with urination and needing to urinate frequently. A bladder infection is a type of urinary tract infection (UTI). Bladder infections are more common is women than men. Most women have an uncomplicated bladder infection that is easily treated with a short course of antibiotics. In men, bladder infections may also affect the prostate gland, and a longer course of treatment may be needed. BLADDER INFECTION CAUSES The urinary tract includes the kidneys (which filter urine), ureters (the tube that carries urine from the kidneys to the bladder), the bladder (which stores urine), and urethra (the tube that carries urine out of the bladder). Bacteria do not normally live in these areas. However, bacteria normally live close to the urethra in women and men who are not circumcised. Bladder infections occur when bacteria travel up the urethra into the bladder. Factors that increase the risk of developing a bladder infection include: Vaginal sex Use of spermicides History of past bladder infections Diabetes In men, not being circumcised or having anal sex increase the risk of bladder infections. BLADDER INFECTION SYMPTOMS The typical symptoms of a bladder infection include: Pain or burning when urinating Frequent need to urinate Urgent need to urinate Blood in the urine Fever, back pain, nausea, or vomiting are not common symptoms of a bladder infection, but can occur in people with a kidney infection (pyelonephritis). If you have these symptoms, you should call your doctor or nurse immediately. Is it a bladder infection or something else? -- Burning with urination can also occur in people with vaginitis (eg, yeast infection) or urethritis (inflammation of the urethra). For this reason, it is important to call your healthcare provider before assuming you have a bladder infection. BLADDER INFECTION DIAGNOSIS Simple bladder infections are usually diagnosed based upon your symptoms alone. However, most patients, especially those who have bladder infection symptoms for the first time, should see a healthcare provider for urine testing. Urine culture -- A urine culture is a test that uses a sample of urine to try and grow bacteria in a laboratory. It usually requires about 48 hours to get results. However, a urine culture is not always required to diagnose a bladder infection. Urine culture is often recommended if: You have never had a bladder infection before You have symptoms that are not typical for bladder infection You have had resistant bladder infections before You have frequent bladder infections You do not begin to feel better within 24 to 48 hours after starting antibiotics You are BLADDER INFECTION TREATMENT Bladder infection -- In young, healthy adolescents and adults with a bladder infection, the usual treatment includes a three to seven day course of antibiotics. The typical drugs chosen are: trimethoprim-sulfamethoxazole (Bactrim ), nitrofurantoin (Macrobid ), ciprofloxacin (Cipro ) or levofloxacin (Levaquin ). In men, the infection may involve your prostate gland and treatment is usually given for at least 7 days. Your symptoms should begin to resolve within one day after starting treatment. It is important to take the full course of antibiotics to completely eliminate the infection. If your symptoms persist for more than two or three days after starting treatment, call your healthcare provider. If needed, you can take a prescription medication that numbs the bladder and urethra (phenazopyridine [Pyridium ]) to reduce the burning pain of some UTIs. A similar medication is available without a prescription (eg, Uristat). Both medications change the color of the urine (usually blue or orange) and can interfere with laboratory testing. You should not take these medications for more than 48 hours due to the risk of side effects. These medications do not treat the infection and must be taken along with an antibiotic. Some providers recommend drinking more fluids while treating bladder infections to help flush bacteria from the bladder. Others believe that drinking more fluids may dilute the antibiotic in the bladder and make the medication less effective. No studies have been performed to address this issue. There are also no good studies on the effectiveness of cranberry juice for treating a bladder infection; we do not recommend using cranberry juice to treat bladder infections. Follow-up care -- Follow-up testing is not needed in healthy, young men or women with a bladder infection if symptoms resolve. women are usually asked to have a repeat urine culture one to two weeks after treatment has ended to make sure the bacteria are no longer in the urine. RECURRENT BLADDER INFECTIONS Bladder infections versus other causes -- Some adults, especially women, develop bladder infections frequently. In this case, it is important to confirm that your symptoms (eg, pain or burning, frequency, and urgency) are caused by a bladder infection. Symptoms are usually similar from one infection to another. The best way to confirm an infection is to have a urine culture. If your urine culture is negative for infection, other causes of pain, burning, and frequency should be investigated. There is no reason to take antibiotics if your urine culture is negative. Need for further testing -- If you continue to develop bladder infections, you may require further testing. If you continue to notice blood in your urine after your bladder infection has cleared, you should have further testing. Preventing recurrent UTIs -- Women with recurrent urinary tract infections may be advised to take steps to prevent bladder infections, including one or more of the following: Changes in control -- Women who develop frequent bladder infections and use spermicides, particularly those who also use a diaphragm, may be encouraged to use an alternate method of control. Cranberry products -- Taking cranberry juice or cranberry tablets has been promoted as one way to help prevent frequent bladder infections. However, this has not been proven. Drinking more fluid and urinating after intercourse -- Although studies have not proven that drinking more fluids or urinating soon after intercourse can prevent infection, some healthcare providers recommend these measures since they are not harmful. Drinking more fluid may help to wash out bacteria that enter the bladder. Postmenopausal women -- Postmenopausal women who develop recurrent bladder infections may benefit from using vaginal estrogen. Vaginal estrogen is available in a flexible ring that is worn in the vagina for three months (eg, Estring ), a small tablet (Vagifem ), or a cream (eg, Premarin or Estrace ). Vaginal estrogen is discussed in more detail in a separate topic review. Antibiotics -- A preventive antibiotic treatment may be recommended if you repeatedly develop bladder infections and have not responded to other preventive measures. Antibiotics are highly effective in preventing recurrent bladder infections and can be taken in several different ways. Preventive antibiotic -- You can take a low dose of an antibiotic once per day or three times per week for six months to several years. Antibiotics following intercourse -- In women who develop urinary tract infections after sex, taking a single low dose antibiotic after intercourse can help to prevent bladder infections. Self-treatment -- A plan to begin antibiotics at the first sign of a bladder infection may be recommended in some situations. Before starting this regimen, it is important that you have had testing (urine cultures) to confirm that your symptoms are caused by a bladder infection; some people have symptoms of a bladder infection but do not actually have an infection. documented in this encounter [facility] 12-21-2021 Miscellaneous Notes [facility] contacted and made aware of Dr. Steinberg's authorization to fill script despite sensitivity listed. Amber Negro RN yes [facility] calling regarding recent Lexapro prescription sent on 12/15/21. According to their file, patient has sensitivity to serotonin reuptake inhibitors and asking if okay to dispense this script to patient? Please call , option 2, with reference number [id number]. Thank you. documented in this encounter [facility] 12-15-2021 History of Present illness Narrative No chief complaint on file. HPI:This Team Access Model visit is a virtual encounter. It required patient-provider interaction for the medical decision making as documented below. Patient was offered a virtual/telemedicine appointment in lieu of an office visit due to recommendations to reduce patient exposure to COVID-19. Patient is aware of limitations of performing the visit without a face to face visit in the office setting and agrees. Highest sugars have been Under 200. She sees sarmad De Leon soon. Was in to see 180. Seeing AA and seeing counseling. Feeling teresa is doing well. No issues like her zoloft did She is sleeping well. Moods have been doing well. No side effects. See previous ov: Was hospitalized 10/17-10/18/21 for DKA. Also had been drinking heavily the night before. Did not require insulin drip. Her sugars have been good. She is seeing Dr. King hugo wolfe and her most recent hba1c was 7.1 Is on an insulin pump with a sensor. Her sugars have been great since hospitalization. Admits to drinking more recently. Is seeing 180 next week. Went to AA last night. Stopped during hospitalization. No chest pain or shortness of breath. Her bp has been ok. I have not seen here since 2019. Dr Engel is also managing her thyroid. Her breathing has been doing well. No current gi upset or issues. Hospital had wanted her to start on zoloft and it gave her diarrhea in the past. Feels she needs something for anxiety. teresa worked in the past. No suicidal ideation. MEDICATIONS: Current Outpatient Medications Medication Sig escitalopram oxalate (LEXAPRO) 10 mg tablet Take 1 tablet by mouth once daily. estradiol (E2) emollient cream 0.2 mg/gram (CPD) Insert fingertip amount vaginally every other day at bedtime fluticasone-salmeterol (ADVAIR DISKUS) 500-50 mcg/dose dsdv Inhale 1 Puff as instructed twice daily. Rinse mouth after use. cyanocobalamin 1,000 mcg/mL Inject 1 mL subcutaneously once every month. levothyroxine (SYNTHROID) 112 mcg tablet Take 1 tablet by mouth daily before breakfast. lisinopril (ZESTRIL, PRINIVIL) 40 mg tablet Take 1 tablet by mouth once daily. lansoprazole (PREVACID) 30 mg capsule TAKE NECESSARY albuterol HFA (PROVENTIL HFA, VENTOLIN HFA) 90 mcg/actuation inhaler Inhale 2 Puffs as instructed every 4 hours as needed for Wheezing/Shortness of Breath. cyanocobalamin (VITAMIN B-12) 1,000 mcg tab Take 1 tablet by mouth once daily. COMPOUNDED PRESCRIPTION 3cc syringe and 25g 1 needle for B12 injections. metroNIDAZOLE (METROGEL) 0.75 % Topical Gel APPLY 1 APPLICATION TO AFFECTED AREA TWO TIMES A DAY (Patient not taking: Reported on 08/28/2020) Cholecalciferol, Vitamin D3, (VITAMIN D) 1,000 unit cap Take 1,000 Units by mouth once daily. Lovastatin 40 mg tablet Take 1 tablet by mouth twice daily. hydrochlorothiazide (HYDRODIURIL, ESIDRIX) 25 mg tablet Take 1 tablet by mouth once daily. insulin aspart (NOVOLOG) 100 unit/mL soln use as directed in insulin pump up to 50 units daily blood sugar diagnostic (JaschaTOUCH ULTRA TEST) test strip CHECK BLOOD SUGARS 8 TIMES DAILY COMPOUNDED PRESCRIPTION Metronic Minimed Insulin Pump Supples And life scan testing supplies use as directed Lancets Misc lancets testing 8 times daily BD ULTRA FINE LANCETS use as directed ASPIRIN 81 MG ORAL TAB Take one(1) tablet daily. VITAMIN C 500 MG ORAL TAB Take one(1) tablet daily. No current facility-administered medications for this visit. 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 Other acne Other vitamin B12 deficiency anemia Snoring Type I (juvenile type) diabetes mellitus without mention of complication, not stated as uncontrolled (HCC) Unspecified asthma, with status asthmaticus Unspecified hypothyroidism PAST SURGICAL HISTORY Procedure Laterality Date APPENDECTOMY COLONOSCOPY 07/12/2016 Repeat colonoscopy 2018 COLONOSCOPY SCREENING 07/13/2021 OOPHORECTOMY PARTIAL/TOTAL UNI/BI 03/2007 right oophorectomy PAST SURGICAL HISTORY OF LAPAROSCOPY TOTAL ABDOMINAL HYSTERECT W/WO RMVL TUBE OVARY 03/2007 Hysterectomy, IVY FAMILY HISTORY Problem Relation Age of Onset No Known Problems Mother other (RENAL CANCER) Father other (Brain Tumors) Sister other (Giallan barrette Syndrome) Sister Colon Cancer Maternal Grandmother and maternal grandfather No Known Problems Maternal Grandfather No Known Problems Paternal Grandmother No Known Problems Paternal Grandfather Social History Tobacco Use Smoking status: Current Some Day Smoker Packs/day: 0.50 Last attempt to quit: 06/28/2010 Years since quittin.4 Smokeless tobacco: Never Used Tobacco comment: seldom Vaping Use Vaping Use: Never used Substance Use Topics Alcohol use: Yes Comment: Occasionally Drug use: No Reviewed current medications, allergies, past medical history, surgical history, family history and social history today. VITALS: LMP 01/13/2007 Last 4 Encounter Wt Readings: Date: Wt: 09/15/2021 71.2 kg (157 lb) 08/28/2020 70.3 kg (155 lb) 08/14/2019 72.6 kg (160 lb) 07/21/2019 72.6 kg (160 lb) PHYSICAL EXAMINATION: Patient is alert and oriented during visit. Answers appropriately. ASSESSMENT/PLAN: 1. Type 1 diabetes mellitus without complication (HCC) - ICD9: 250.01, ICD10: E10.9 (primary diagnosis) - Continue to follow with Dr nEgel. 2. Acquired hypothyroidism - ICD9: 244.9, ICD10: E03.9 - continue meds. 3. ETOH abuse - ICD9: 305.00, ICD10: F10.10 - doing well 4. Anxiety with depression - ICD9: 300.4, ICD10: F41.8 - refill meds. - continue meds. William Steinberg RTO in six months and prn. documented in this encounter [facility] 10-23-2021 Miscellaneous Notes DEJA Voss from [facility] calls to report that case management in following her from [facility]. Humaira Lr RN documented in this encounter [facility] 10-20-2021 History of Present illness Narrative Patient presents with: Follow Up HPI:This Team Access Model visit is a Phone. encounter. It required patient-provider interaction for the medical decision making as documented below. Patient was offered a virtual/telemedicine appointment in lieu of an office visit due to recommendations to reduce patient exposure to COVID-19. Patient is aware of limitations of performing the visit without a face to face visit in the office setting and agrees. Was hospitalized 10/17-10/18/21 for DKA. Also had been drinking heavily the night before. Did not require insulin drip. Her sugars have been good. She is seeing Dr. Engel for endo and her most recent hba1c was 7.1 Is on an insulin pump with a sensor. Her sugars have been great since hospitalization. Admits to drinking more recently. Is seeing 180 next week. Went to AA last night. Stopped during hospitalization. No chest pain or shortness of breath. Her bp has been ok. I have not seen here since 2019. Dr Engel is also managing her thyroid. Her breathing has been doing well. No current gi upset or issues. Hospital had wanted her to start on zoloft and it gave her diarrhea in the past. Feels she needs something for anxiety. [employer] worked in the past. No suicidal ideation. MEDICATIONS: Current Outpatient Medications Medication Sig estradiol (E2) emollient cream 0.2 mg/gram (CPD) Insert fingertip amount vaginally every other day at bedtime fluticasone-salmeterol (ADVAIR DISKUS) 500-50 mcg/dose dsdv Inhale 1 Puff as instructed twice daily. Rinse mouth after use. cyanocobalamin 1,000 mcg/mL Inject 1 mL subcutaneously once every month. levothyroxine (SYNTHROID) 112 mcg tablet Take 1 tablet by mouth daily before breakfast. lisinopril (ZESTRIL, PRINIVIL) 40 mg tablet Take 1 tablet by mouth once daily. lansoprazole (PREVACID) 30 mg capsule TAKE NECESSARY albuterol HFA (PROVENTIL HFA, VENTOLIN HFA) 90 mcg/actuation inhaler Inhale 2 Puffs as instructed every 4 hours as needed for Wheezing/Shortness of Breath. cyanocobalamin (VITAMIN B-12) 1,000 mcg tab Take 1 tablet by mouth once daily. COMPOUNDED PRESCRIPTION 3cc syringe and 25g 1 needle for B12 injections. metroNIDAZOLE (METROGEL) 0.75 % Topical Gel APPLY 1 APPLICATION TO AFFECTED AREA TWO TIMES A DAY (Patient not taking: Reported on 08/28/2020) Cholecalciferol, Vitamin D3, (VITAMIN D) 1,000 unit cap Take 1,000 Units by mouth once daily. Lovastatin 40 mg tablet Take 1 tablet by mouth twice daily. hydrochlorothiazide (HYDRODIURIL, ESIDRIX) 25 mg tablet Take 1 tablet by mouth once daily. insulin aspart (NOVOLOG) 100 unit/mL soln use as directed in insulin pump up to 50 units daily blood sugar diagnostic (JaschaTOUCH ULTRA TEST) test strip CHECK BLOOD SUGARS 8 TIMES DAILY COMPOUNDED PRESCRIPTION Metronic Minimed Insulin Pump Supples And life scan testing supplies use as directed Lancets Misc lancets testing 8 times daily BD ULTRA FINE LANCETS use as directed ASPIRIN 81 MG ORAL TAB Take one(1) tablet daily. VITAMIN C 500 MG ORAL TAB Take one(1) tablet daily. No current facility-administered medications for this visit. 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 Other acne Other vitamin B12 deficiency anemia Snoring Type I (juvenile type) diabetes mellitus without mention of complication, not stated as uncontrolled (HCC) Unspecified asthma, with status asthmaticus Unspecified hypothyroidism PAST SURGICAL HISTORY Procedure Laterality Date APPENDECTOMY COLONOSCOPY 07/12/2016 Repeat colonoscopy 2018 COLONOSCOPY SCREENING 07/13/2021 OOPHORECTOMY PARTIAL/TOTAL UNI/BI 03/2007 right oophorectomy PAST SURGICAL HISTORY OF LAPAROSCOPY TOTAL ABDOMINAL HYSTERECT W/WO RMVL TUBE OVARY 03/2007 Hysterectomy, IVY FAMILY HISTORY Problem Relation Age of Onset No Known Problems Mother other (RENAL CANCER) Father other (Brain Tumors) Sister other (Giallan barrette Syndrome) Sister Colon Cancer Maternal Grandmother and maternal grandfather No Known Problems Maternal Grandfather No Known Problems Paternal Grandmother No Known Problems Paternal Grandfather Social History Tobacco Use Smoking status: Current Some Day Smoker Packs/day: 0.50 Last attempt to quit: 06/28/2010 Years since quittin.3 Smokeless tobacco: Never Used Tobacco comment: seldom Vaping Use Vaping Use: Never used Substance Use Topics Alcohol use: Yes Comment: Occasionally Drug use: No Reviewed current medications, allergies, past medical history, surgical history, family history and social history today. REVIEW OF SYSTEMS All other reviewed and negative other than HPI. VITALS: LMP 01/13/2007 Last 4 Encounter Wt Readings: Date: Wt: 09/15/2021 71.2 kg (157 lb) 08/28/2020 70.3 kg (155 lb) 08/14/2019 72.6 kg (160 lb) 07/21/2019 72.6 kg (160 lb) PHYSICAL EXAMINATION: Patient is alert and oriented during visit. Answers appropriately. ASSESSMENT/PLAN: 1. Diabetic ketoacidosis without coma associated with type 1 diabetes mellitus (HCC) - ICD9: 250.13, ICD10: E10.10 (primary diagnosis) - avoid etoh. See counseling. See endo. Call them with update. 2. Acquired hypothyroidism - ICD9: 244.9, ICD10: E03.9 Continue meds. 3. Anxiety with depression - ICD9: 300.4, ICD10: F41.8 - lexapro. Discussed risks and benefits of new medication with the patient. Advised them to call if any side effects or questions. William Steinberg RTO in six weeks and prn. I spent 17 minutes in the visit, with more than 50% of the total [id number] time of the visit in counseling / coordination of care. documented in this encounter [facility] 09-15-2021 History of Present illness Narrative Images from the original note were not included. [facility]ine Some elements copied from his previous note, which have been updated where appropriate, and all reflect current medical decision making from date of this visit. PATIENT INFO: Mayi Mata 56 year old [facility] # [id number] PCP: William Steinberg MD CHIEF COMPLAINT: UTI , Atrophic Vaginitis HPI: This is a 56 year old female, who has UTI , Atrophic Vaginitis, she has been using Topical Estrogen and Probiotic with good results She has not had any UTI since starting and will continue therapy She has gylcosuria again today which could lead to UTI and yeast infections REVIEW OF SYSTEMS: General: General: Well developed, well nourished. No acute distress Endocrine: Positive: DM on Insulin PHYSICAL EXAM: Blood pressure 134/84, pulse 112, temperature 36.1 C (96.9 F), temperature source Temporal, resp. rate 16, height 162.6 cm (5' 4), weight 71.2 kg (157 lb), last menstrual period 01/13/2007, SpO2 100 %. General Appearance/ Constitutional: Well developed, well nourished, and in no apparent distress IMPRESSION / PLAN: > History of UTI , Atrophic Vaginitis > Urine Culture today > Rx for Topical Estrogen sent to P- refills Doing very well on topical cream > 1 year Appt w/ VILMA Vicente, [place], PA-C or sooner if UTI symptoms and will order urine culture Carina Lange MPAS, [place], LATIA documented in this encounter [facility] 07-20-2012 History of Past i llness Narrative Problem Noted Date Resolved Date Postinflammatory skin changes 07/20/2012 Epidermal cyst 07/20/2012 02/16/2017 Solar Lentigines 02/18/2010 02/16/2017 SOLAR LENTIGINES///DYSCHROMIA OTHER 06/18/2008 02/16/2017 ACTINIC DAMAGE///CHR SOLAR SKIN DAMAGE NOS 06/1802/16/2017 Dermatitis due to cosmetics 06/18/200801/26 Contact dermatitis and other eczema, due to unspecified cause 06/18/2008 02/16/2017 Contact dermatitis and other eczema due to other specified agent 06/18/2008 02/16/2017 NEVUS CHEST/BACK///BENIGN TAMMY SKIN TRUNK 007 02/16/2017 NEVUS///BENIGN TAMMY SKIN FACE NEC 04/25/2007 02/16/2017 NEVI////BENIGN TAMMY SCALP/SKIN NECK 04/25/2007 02/16/2017 SCARS: Acne-related (chin) 04/25/200702/16 documented as of this encounter (statuses as of 09/15/2021) [facility] History of Past illness Narrative* Problem Noted Date Resolved Date Postinflammatory skin changes 07/20/2012 Epidermal cyst 07/20/2012 02/16/2017 Solar Lentigines 02/18/2010 02/16/2017 SOLAR LENTIGINES///DYSCHROMIA OTHER 06/18/2008 02/16/2017 ACTINIC DAMAGE///CHR SOLAR SKIN DAMAGE NOS 06/1802/16/2017 Dermatitis due to cosmetics 06/18/200801/26 Contact dermatitis and other eczema, due to unspecified cause 06/18/2008 02/16/2017 Contact dermatitis and other eczema due to other specified agent 06/18/2008 02/16/2017 NEVUS CHEST/BACK///BENIGN TAMMY SKIN TRUNK 007 02/16/2017 NEVUS///BENIGN TAMMY SKIN FACE NEC 04/25/2007 02/16/2017 NEVI////BENIGN TAMMY SCALP/SKIN NECK 04/25/2007 02/16/2017 SCARS: Acne-related (chin) 04/25/200702/16 documented as of this encounter (statuses as of 10/19/2021) [facility] History of Past illness Narrative* Problem Noted Date Resolved Date Postinflammatory skin changes 07/20/2012 Epidermal cyst 07/20/2012 02/16/2017 Solar Lentigines 02/18/2010 02/16/2017 SOLAR LENTIGINES///DYSCHROMIA OTHER 06/18/2008 02/16/2017 ACTINIC DAMAGE///CHR SOLAR SKIN DAMAGE NOS 06/1802/16/2017 Dermatitis due to cosmetics 06/18/200801/26 Contact dermatitis and other eczema, due to unspecified cause 06/18/2008 02/16/2017 Contact dermatitis and other eczema due to other specified agent 06/18/2008 02/16/2017 NEVUS CHEST/BACK///BENIGN TAMMY SKIN TRUNK 007 02/16/2017 NEVUS///BENIGN TAMMY SKIN FACE NEC 04/25/2007 02/16/2017 NEVI////BENIGN TAMMY SCALP/SKIN NECK 04/25/2007 02/16/2017 SCARS: Acne-related (chin) 04/25/200702/16 documented as of this encounter (statuses as of 10/20/2021) [facility] History of Past illness Narrative* Problem Noted Date Resolved Date Postinflammatory skin changes 07/20/2012 Epidermal cyst 07/20/2012 02/16/2017 Solar Lentigines 02/18/2010 02/16/2017 SOLAR LENTIGINES///DYSCHROMIA OTHER 06/18/2008 02/16/2017 ACTINIC DAMAGE///CHR SOLAR SKIN DAMAGE NOS 06/1802/16/2017 Dermatitis due to cosmetics 06/18/200801/26 Contact dermatitis and other eczema, due to unspecified cause 06/18/2008 02/16/2017 Contact dermatitis and other eczema due to other specified agent 06/18/2008 02/16/2017 NEVUS CHEST/BACK///BENIGN TAMMY SKIN TRUNK 007 02/16/2017 NEVUS///BENIGN TAMMY SKIN FACE NEC 04/25/2007 02/16/2017 NEVI////BENIGN TAMMY SCALP/SKIN NECK 04/25/2007 02/16/2017 SCARS: Acne-related (chin) 04/25/200702/16 documented as of this encounter (statuses as of 10/27/2021) [facility] History of Past illness Narrative* Problem Noted Date Resolved Date Postinflammatory skin changes 07/20/2012 Epidermal cyst 07/20/2012 02/16/2017 Solar Lentigines 02/18/2010 02/16/2017 SOLAR LENTIGINES///DYSCHROMIA OTHER 06/18/2008 02/16/2017 ACTINIC DAMAGE///CHR SOLAR SKIN DAMAGE NOS 06/1802/16/2017 Dermatitis due to cosmetics 06/18/200801/26 Contact dermatitis and other eczema, due to unspecified cause 06/18/2008 02/16/2017 Contact dermatitis and other eczema due to other specified agent 06/18/2008 02/16/2017 NEVUS CHEST/BACK///BENIGN TAMMY SKIN TRUNK 007 02/16/2017 NEVUS///BENIGN TAMMY SKIN FACE NEC 04/25/2007 02/16/2017 NEVI////BENIGN TAMMY SCALP/SKIN NECK 04/25/2007 02/16/2017 SCARS: Acne-related (chin) 04/25/200702/16 documented as of this encounter (statuses as of 12/15/2021) [facility] History of Past illness Narrative* Problem Noted Date Resolved Date Postinflammatory skin changes 07/20/2012 Epidermal cyst 07/20/2012 02/16/2017 Solar Lentigines 02/18/2010 02/16/2017 SOLAR LENTIGINES///DYSCHROMIA OTHER 06/18/2008 02/16/2017 ACTINIC DAMAGE///CHR SOLAR SKIN DAMAGE NOS 06/1802/16/2017 Dermatitis due to cosmetics 06/18/200801/26 Contact dermatitis and other eczema, due to unspecified cause 06/18/2008 02/16/2017 Contact dermatitis and other eczema due to other specified agent 06/18/2008 02/16/2017 NEVUS CHEST/BACK///BENIGN TAMMY SKIN TRUNK 007 02/16/2017 NEVUS///BENIGN TAMMY SKIN FACE NEC 04/25/2007 02/16/2017 NEVI////BENIGN TAMMY SCALP/SKIN NECK 04/25/2007 02/16/2017 SCARS: Acne-related (chin) 04/25/200702/16 documented as of this encounter (statuses as of 12/21/2021) [facility] History of Past illness Narrative* Problem Noted Date Resolved Date Postinflammatory skin changes 07/20/2012 Epidermal cyst 07/20/2012 02/16/2017 Solar Lentigines 02/18/2010 02/16/2017 SOLAR LENTIGINES///DYSCHROMIA OTHER 06/18/2008 02/16/2017 ACTINIC DAMAGE///CHR SOLAR SKIN DAMAGE NOS 06/1802/16/2017 Dermatitis due to cosmetics 06/18/200801/26 Contact dermatitis and other eczema, due to unspecified cause 06/18/2008 02/16/2017 Contact dermatitis and other eczema due to other specified agent 06/18/2008 02/16/2017 NEVUS CHEST/BACK///BENIGN TAMMY SKIN TRUNK 007 02/16/2017 NEVUS///BENIGN TAMMY SKIN FACE NEC 04/25/2007 02/16/2017 NEVI////BENIGN TAMMY SCALP/SKIN NECK 04/25/2007 02/16/2017 SCARS: Acne-related (chin) 04/25/200702/16 documented as of this encounter (statuses as of 01/14/2022) [facility] History of Past illness Narrative* Problem Noted Date Resolved Date Postinflammatory skin changes 07/20/2012 Epidermal cyst 07/20/2012 02/16/2017 Solar Lentigines 02/18/2010 02/16/2017 SOLAR LENTIGINES///DYSCHROMIA OTHER 06/18/2008 02/16/2017 ACTINIC DAMAGE///CHR SOLAR SKIN DAMAGE NOS 06/1802/16/2017 Dermatitis due to cosmetics 06/18/200801/26 Contact dermatitis and other eczema, due to unspecified cause 06/18/2008 02/16/2017 Contact dermatitis and other eczema due to other specified agent 06/18/2008 02/16/2017 NEVUS CHEST/BACK///BENIGN TAMMY SKIN TRUNK 007 02/16/2017 NEVUS///BENIGN TAMMY SKIN FACE NEC 04/25/2007 02/16/2017 NEVI////BENIGN TAMMY SCALP/SKIN NECK 04/25/2007 02/16/2017 SCARS: Acne-related (chin) 04/25/200702/16 documented as of this encounter (statuses as of 02/17/2022) [facility] History of Past illness Narrative* Problem Noted Date Resolved Date Postinflammatory skin changes 07/20/2012 Epidermal cyst 07/20/2012 02/16/2017 Solar Lentigines 02/18/2010 02/16/2017 SOLAR LENTIGINES///DYSCHROMIA OTHER 06/18/2008 02/16/2017 ACTINIC DAMAGE///CHR SOLAR SKIN DAMAGE NOS 06/1802/16/2017 Dermatitis due to cosmetics 06/18/200801/26 Contact dermatitis and other eczema, due to unspecified cause 06/18/2008 02/16/2017 Contact dermatitis and other eczema due to other specified agent 06/18/2008 02/16/2017 NEVUS CHEST/BACK///BENIGN TAMMY SKIN TRUNK 007 02/16/2017 NEVUS///BENIGN TAMMY SKIN FACE NEC 04/25/2007 02/16/2017 NEVI////BENIGN TAMMY SCALP/SKIN NECK 04/25/2007 02/16/2017 SCARS: Acne-related (chin) 04/25/200702/16 documented as of this encounter (statuses as of 04/24/2022) [facility] History of Past illness Narrative* Problem Noted Date Resolved Date Postinflammatory skin changes 07/20/2012 Epidermal cyst 07/20/2012 02/16/2017 Solar Lentigines 02/18/2010 02/16/2017 SOLAR LENTIGINES///DYSCHROMIA OTHER 06/18/2008 02/16/2017 ACTINIC DAMAGE///CHR SOLAR SKIN DAMAGE NOS 06/1802/16/2017 Dermatitis due to cosmetics 06/18/200801/26 Contact dermatitis and other eczema, due to unspecified cause 06/18/2008 02/16/2017 Contact dermatitis and other eczema due to other specified agent 06/18/2008 02/16/2017 NEVUS CHEST/BACK///BENIGN TAMMY SKIN TRUNK 007 02/16/2017 NEVUS///BENIGN TAMMY SKIN FACE NEC 04/25/2007 02/16/2017 NEVI////BENIGN TAMMY SCALP/SKIN NECK 04/25/2007 02/16/2017 SCARS: Acne-related (chin) 04/25/200702/16 documented as of this encounter (statuses as of 04/26/2022) [facility] History of Past illness Narrative* Problem Noted Date Resolved Date Postinflammatory skin changes 07/20/2012 Epidermal cyst 07/20/2012 02/16/2017 Solar Lentigines 02/18/2010 02/16/2017 SOLAR LENTIGINES///DYSCHROMIA OTHER 06/18/2008 02/16/2017 ACTINIC DAMAGE///CHR SOLAR SKIN DAMAGE NOS 06/1802/16/2017 Dermatitis due to cosmetics 06/18/200801/26 Contact dermatitis and other eczema, due to unspecified cause 06/18/2008 02/16/2017 Contact dermatitis and other eczema due to other specified agent 06/18/2008 02/16/2017 NEVUS CHEST/BACK///BENIGN TAMMY SKIN TRUNK 007 02/16/2017 NEVUS///BENIGN TAMMY SKIN FACE NEC 04/25/2007 02/16/2017 NEVI////BENIGN TAMMY SCALP/SKIN NECK 04/25/2007 02/16/2017 SCARS: Acne-related (chin) 04/25/200702/16 documented as of this encounter (statuses as of 05/12/2022) [facility] History of Past illness Narrative* Problem Noted Date Resolved Date Postinflammatory skin changes 07/20/2012 Epidermal cyst 07/20/2012 02/16/2017 Solar Lentigines 02/18/2010 02/16/2017 SOLAR LENTIGINES///DYSCHROMIA OTHER 06/18/2008 02/16/2017 ACTINIC DAMAGE///CHR SOLAR SKIN DAMAGE NOS 06/1802/16/2017 Dermatitis due to cosmetics 06/18/200801/26 Contact dermatitis and other eczema, due to unspecified cause 06/18/2008 02/16/2017 Contact dermatitis and other eczema due to other specified agent 06/18/2008 02/16/2017 NEVUS CHEST/BACK///BENIGN TAMMY SKIN TRUNK 007 02/16/2017 NEVUS///BENIGN TAMMY SKIN FACE NEC 04/25/2007 02/16/2017 NEVI////BENIGN TAMMY SCALP/SKIN NECK 04/25/2007 02/16/2017 SCARS: Acne-related (chin) 04/25/200702/16 documented as of this encounter (statuses as of 05/18/2022) [facility] History of Past illness Narrative* Problem Noted Date Resolved Date Postinflammatory skin changes 07/20/2012 Epidermal cyst 07/20/2012 02/16/2017 Solar Lentigines 02/18/2010 02/16/2017 SOLAR LENTIGINES///DYSCHROMIA OTHER 06/18/2008 02/16/2017 ACTINIC DAMAGE///CHR SOLAR SKIN DAMAGE NOS 06/1802/16/2017 Dermatitis due to cosmetics 06/18/200801/26 Contact dermatitis and other eczema, due to unspecified cause 06/18/2008 02/16/2017 Contact dermatitis and other eczema due to other specified agent 06/18/2008 02/16/2017 NEVUS CHEST/BACK///BENIGN TAMMY SKIN TRUNK 007 02/16/2017 NEVUS///BENIGN TAMMY SKIN FACE NEC 04/25/2007 02/16/2017 NEVI////BENIGN TAMMY SCALP/SKIN NECK 04/25/2007 02/16/2017 SCARS: Acne-related (chin) 04/25/200702/16 documented as of this encounter (statuses as of 07/06/2022) [facility] History of Past illness Narrative* Problem Noted Date Resolved Date Postinflammatory skin changes 07/20/2012 Epidermal cyst 07/20/2012 02/16/2017 Solar Lentigines 02/18/2010 02/16/2017 SOLAR LENTIGINES///DYSCHROMIA OTHER 06/18/2008 02/16/2017 ACTINIC DAMAGE///CHR SOLAR SKIN DAMAGE NOS 06/1802/16/2017 Dermatitis due to cosmetics 06/18/200801/26 Contact dermatitis and other eczema, due to unspecified cause 06/18/2008 02/16/2017 Contact dermatitis and other eczema due to other specified agent 06/18/2008 02/16/2017 NEVUS CHEST/BACK///BENIGN TAMMY SKIN TRUNK 007 02/16/2017 NEVUS///BENIGN TAMMY SKIN FACE NEC 04/25/2007 02/16/2017 NEVI////BENIGN TAMMY SCALP/SKIN NECK 04/25/2007 02/16/2017 SCARS: Acne-related (chin) 04/25/200702/16 documented as of this encounter (statuses as of 08/04/2022) [facility] History of Past illness Narrative* Problem Noted Date Resolved Date Postinflammatory skin changes 07/20/2012 Epidermal cyst 07/20/2012 02/16/2017 Solar Lentigines 02/18/2010 02/16/2017 SOLAR LENTIGINES///DYSCHROMIA OTHER 06/18/2008 02/16/2017 ACTINIC DAMAGE///CHR SOLAR SKIN DAMAGE NOS 06/1802/16/2017 Dermatitis due to cosmetics 06/18/200801/26 Contact dermatitis and other eczema, due to unspecified cause 06/18/2008 02/16/2017 Contact dermatitis and other eczema due to other specified agent 06/18/2008 02/16/2017 NEVUS CHEST/BACK///BENIGN TAMMY SKIN TRUNK 007 02/16/2017 NEVUS///BENIGN TAMMY SKIN FACE NEC 04/25/2007 02/16/2017 NEVI////BENIGN TAMMY SCALP/SKIN NECK 04/25/2007 02/16/2017 SCARS: Acne-related (chin) 04/25/200702/16 documented as of this encounter (statuses as of 08/11/2022) [facility] History of Past illness Narrative* Problem Noted Date Resolved Date Postinflammatory skin changes 07/20/2012 Epidermal cyst 07/20/2012 02/16/2017 Solar Lentigines 02/18/2010 02/16/2017 SOLAR LENTIGINES///DYSCHROMIA OTHER 06/18/2008 02/16/2017 ACTINIC DAMAGE///CHR SOLAR SKIN DAMAGE NOS 06/1802/16/2017 Dermatitis due to cosmetics 06/18/200801/26 Contact dermatitis and other eczema, due to unspecified cause 06/18/2008 02/16/2017 Contact dermatitis and other eczema due to other specified agent 06/18/2008 02/16/2017 NEVUS CHEST/BACK///BENIGN TAMMY SKIN TRUNK 007 02/16/2017 NEVUS///BENIGN TAMMY SKIN FACE NEC 04/25/2007 02/16/2017 NEVI////BENIGN TAMMY SCALP/SKIN NECK 04/25/2007 02/16/2017 SCARS: Acne-related (chin) 04/25/200702/16 documented as of this encounter (statuses as of 08/17/2022) [facility] History of Past illness Narrative* Problem Noted Date Resolved Date Postinflammatory skin changes 07/20/2012 Epidermal cyst 07/20/2012 02/16/2017 Solar Lentigines 02/18/2010 02/16/2017 SOLAR LENTIGINES///DYSCHROMIA OTHER 06/18/2008 02/16/2017 ACTINIC DAMAGE///CHR SOLAR SKIN DAMAGE NOS 06/1802/16/2017 Dermatitis due to cosmetics 06/18/200801/26 Contact dermatitis and other eczema, due to unspecified cause 06/18/2008 02/16/2017 Contact dermatitis and other eczema due to other specified agent 06/18/2008 02/16/2017 NEVUS CHEST/BACK///BENIGN TAMMY SKIN TRUNK 007 02/16/2017 NEVUS///BENIGN TAMMY SKIN FACE NEC 04/25/2007 02/16/2017 NEVI////BENIGN TAMMY SCALP/SKIN NECK 04/25/2007 02/16/2017 SCARS: Acne-related (chin) 04/25/200702/16 documented as of this encounter (statuses as of 08/24/2022) [facility] History of Past illness Narrative* Problem Noted Date Resolved Date Postinflammatory skin changes 07/20/2012 Epidermal cyst 07/20/2012 02/16/2017 Solar Lentigines 02/18/2010 02/16/2017 SOLAR LENTIGINES///DYSCHROMIA OTHER 06/18/2008 02/16/2017 ACTINIC DAMAGE///CHR SOLAR SKIN DAMAGE NOS 06/1802/16/2017 Dermatitis due to cosmetics 06/18/200801/26 Contact dermatitis and other eczema, due to unspecified cause 06/18/2008 02/16/2017 Contact dermatitis and other eczema due to other specified agent 06/18/2008 02/16/2017 NEVUS CHEST/BACK///BENIGN TAMMY SKIN TRUNK 007 02/16/2017 NEVUS///BENIGN TAMMY SKIN FACE NEC 04/25/2007 02/16/2017 NEVI////BENIGN TAMMY SCALP/SKIN NECK 04/25/2007 02/16/2017 SCARS: Acne-related (chin) 04/25/200702/16 documented as of this encounter (statuses as of 09/07/2022) [facility] of Past illness Narrative* Problem Noted Date Resolved Date Postinflammatory skin changes 07/20/2012 Epidermal cyst 07/20/2012 02/16/2017 Solar Lentigines 02/18/2010 02/16/2017 SOLAR LENTIGINES///DYSCHROMIA OTHER 06/18/2008 02/16/2017 ACTINIC DAMAGE///CHR SOLAR SKIN DAMAGE NOS 06/1802/16/2017 Dermatitis due to cosmetics 06/18/200801/26 Contact dermatitis and other eczema, due to unspecified cause 06/18/2008 02/16/2017 Contact dermatitis and other eczema due to other specified agent 06/18/2008 02/16/2017 NEVUS CHEST/BACK///BENIGN TAMMY SKIN TRUNK 007 02/16/2017 NEVUS///BENIGN TAMMY SKIN FACE NEC 04/25/2007 02/16/2017 NEVI////BENIGN TAMMY SCALP/SKIN NECK 04/25/2007 02/16/2017 SCARS: Acne-related (chin) 04/25/200702/16 documented as of this encounter (statuses as of 09/24/2022) [facility] History of Past illness Narrative* Problem Noted Date Resolved Date Postinflammatory skin changes 07/20/2012 Epidermal cyst 07/20/2012 02/16/2017 Solar Lentigines 02/18/2010 02/16/2017 SOLAR LENTIGINES///DYSCHROMIA OTHER 06/18/2008 02/16/2017 ACTINIC DAMAGE///CHR SOLAR SKIN DAMAGE NOS 06/1802/16/2017 Dermatitis due to cosmetics 06/18/200801/26 Contact dermatitis and other eczema, due to unspecified cause 06/18/2008 02/16/2017 Contact dermatitis and other eczema due to other specified agent 06/18/2008 02/16/2017 NEVUS CHEST/BACK///BENIGN TAMMY SKIN TRUNK 007 02/16/2017 NEVUS///BENIGN TAMMY SKIN FACE NEC 04/25/2007 02/16/2017 NEVI////BENIGN TAMMY SCALP/SKIN NECK 04/25/2007 02/16/2017 SCARS: Acne-related (chin) 04/25/200702/16 documented as of this encounter (statuses as of 09/30/2022) [facility] History of Past illness Narrative* Problem Noted Date Diagnosed Date Resolved Date Postinflammatory skin changes 07/20/2012 02/16/2017 Epidermal cyst 07/20/2012 02/16/2017 Solar Lentigines 02/18/2010 02/16/2017 SOLAR LENTIGINES///DYSCHROMIA OTHER 06/18/2008 02/16/2017 ACTINIC DAMAGE///CHR SOLAR SKIN DAMAGE NOS 06/18/2008 02/16/2017 Dermatitis due to cosmetics 06/18/2008 02/16/2017 Contact dermatitis and other eczema, due to unspecified cause 06/18/2008 02/16/2017 Contact dermatitis and other eczema due to other specified agent 06/18/2008 02/16/2017 NEVUS CHEST/BACK///BENIGN TAMMY SKIN TRUNK 04/25/2007 02/16/2017 NEVUS///BENIGN TAMMY SKIN FACE NEC 04/25/2007 02/16/2017 NEVI////BENIGN TAMMY SCALP/SKIN NECK 04/25/2007 02/16/2017 SCARS: Acne-related (chin) 04/25/2007 0 02/16/2017 documented as of this encounter (statuses as of 02/15/2023) [facility]01-[facility] History of Past illness Narrative* Problem Noted Date Diagnosed Date Resolved Date Postinflammatory skin changes 07/20/2012 02/16/2017 Epidermal cyst 07/20/2012 02/16/2017 Solar Lentigines 02/18/2010 02/16/2017 SOLAR LENTIGINES///DYSCHROMIA OTHER 06/18/2008 02/16/2017 ACTINIC DAMAGE///CHR SOLAR SKIN DAMAGE NOS 06/18/2008 02/16/2017 Dermatitis due to cosmetics 06/18/2008 02/16/2017 Contact dermatitis and other eczema, due to unspecified cause 06/18/2008 02/16/2017 Contact dermatitis and other eczema due to other specified agent 06/18/2008 02/16/2017 NEVUS CHEST/BACK///BENIGN TAMMY SKIN TRUNK 04/25/2007 02/16/2017 NEVUS///BENIGN TAMMY SKIN FACE NEC 04/25/2007 02/16/2017 NEVI////BENIGN TAMMY SCALP/SKIN NECK 04/25/2007 02/16/2017 SCARS: Acne-related (chin) 04/25/2007 0 02/16/2017 documented as of this encounter (statuses as of 02/16/2023) [facility] History of Past illness Narrative* Problem Noted Date Diagnosed Date Resolved Date Postinflammatory skin changes 07/20/2012 02/16/2017 Epidermal cyst 07/20/2012 02/16/2017 Solar Lentigines 02/18/2010 02/16/2017 SOLAR LENTIGINES///DYSCHROMIA OTHER 06/18/2008 02/16/2017 ACTINIC DAMAGE///CHR SOLAR SKIN DAMAGE NOS 06/18/2008 02/16/2017 Dermatitis due to cosmetics 06/18/2008 02/16/2017 Contact dermatitis and other eczema, due to unspecified cause 06/18/2008 02/16/2017 Contact dermatitis and other eczema due to other specified agent 06/18/2008 02/16/2017 NEVUS CHEST/BACK///BENIGN TAMMY SKIN TRUNK 04/25/2007 02/16/2017 NEVUS///BENIGN TAMMY SKIN FACE NEC 04/25/2007 02/16/2017 NEVI////BENIGN TAMMY SCALP/SKIN NECK 04/25/2007 02/16/2017 SCARS: Acne-related (chin) 04/25/2007 0 02/16/2017 documented as of this encounter (statuses as of 02/22/2023) [facility] History of Past illness Narrative* Problem Noted Date Diagnosed Date Resolved Date Postinflammatory skin changes 07/20/2012 02/16/2017 Epidermal cyst 07/20/2012 02/16/2017 Solar Lentigines 02/18/2010 02/16/2017 SOLAR LENTIGINES///DYSCHROMIA OTHER 06/18/2008 02/16/2017 ACTINIC DAMAGE///CHR SOLAR SKIN DAMAGE NOS 06/18/2008 02/16/2017 Dermatitis due to cosmetics 06/18/2008 02/16/2017 Contact dermatitis and other eczema, due to unspecified cause 06/18/2008 02/16/2017 Contact dermatitis and other eczema due to other specified agent 06/18/2008 02/16/2017 NEVUS CHEST/BACK///BENIGN TAMMY SKIN TRUNK 04/25/2007 02/16/2017 NEVUS///BENIGN TAMMY SKIN FACE NEC 04/25/2007 02/16/2017 NEVI////BENIGN TAMMY SCALP/SKIN NECK 04/25/2007 02/16/2017 SCARS: Acne-related (chin) 04/25/2007 0 02/16/2017 documented as of this encounter (statuses as of 03/02/2023) [facility] History of Past illness Narrative* Problem Noted Date Diagnosed Date Resolved Date Postinflammatory skin changes 07/20/2012 02/16/2017 Epidermal cyst 07/20/2012 02/16/2017 Solar Lentigines 02/18/2010 02/16/2017 SOLAR LENTIGINES///DYSCHROMIA OTHER 06/18/2008 02/16/2017 ACTINIC DAMAGE///CHR SOLAR SKIN DAMAGE NOS 06/18/2008 02/16/2017 Dermatitis due to cosmetics 06/18/2008 02/16/2017 Contact dermatitis and other eczema, due to unspecified cause 06/18/2008 02/16/2017 Contact dermatitis and other eczema due to other specified agent 06/18/2008 02/16/2017 NEVUS CHEST/BACK///BENIGN TAMMY SKIN TRUNK 04/25/2007 02/16/2017 NEVUS///BENIGN TAMMY SKIN FACE NEC 04/25/2007 02/16/2017 NEVI////BENIGN TAMMY SCALP/SKIN NECK 04/25/2007 02/16/2017 SCARS: Acne-related (chin) 04/25/2007 0 02/16/2017 documented as of this encounter (statuses as of 04/05/2023) [facility] History of Past illness Narrative* Problem Noted Date Diagnosed Date Resolved Date Postinflammatory skin changes 07/20/2012 02/16/2017 Epidermal cyst 07/20/2012 02/16/2017 Solar Lentigines 02/18/2010 02/16/2017 SOLAR LENTIGINES///DYSCHROMIA OTHER 06/18/2008 02/16/2017 ACTINIC DAMAGE///CHR SOLAR SKIN DAMAGE NOS 06/18/2008 02/16/2017 Dermatitis due to cosmetics 06/18/2008 02/16/2017 Contact dermatitis and other eczema, due to unspecified cause 06/18/2008 02/16/2017 Contact dermatitis and other eczema due to other specified agent 06/18/2008 02/16/2017 NEVUS CHEST/BACK///BENIGN TAMMY SKIN TRUNK 04/25/2007 02/16/2017 NEVUS///BENIGN TAMMY SKIN FACE NEC 04/25/2007 02/16/2017 NEVI////BENIGN TAMMY SCALP/SKIN NECK 04/25/2007 02/16/2017 SCARS: Acne-related (chin) 04/25/2007 0 02/16/2017 documented as of this encounter (statuses as of 04/30/2023) [facility] History of Past illness Narrative* Problem Noted Date Diagnosed Date Resolved Date Postinflammatory skin changes 07/20/2012 02/16/2017 Epidermal cyst 07/20/2012 02/16/2017 Solar Lentigines 02/18/2010 02/16/2017 SOLAR LENTIGINES///DYSCHROMIA OTHER 06/18/2008 02/16/2017 ACTINIC DAMAGE///CHR SOLAR SKIN DAMAGE NOS 06/18/2008 02/16/2017 Dermatitis due to cosmetics 06/18/2008 02/16/2017 Contact dermatitis and other eczema, due to unspecified cause 06/18/2008 02/16/2017 Contact dermatitis and other eczema due to other specified agent 06/18/2008 02/16/2017 NEVUS CHEST/BACK///BENIGN TAMMY SKIN TRUNK 04/25/2007 02/16/2017 NEVUS///BENIGN TAMMY SKIN FACE NEC 04/25/2007 02/16/2017 NEVI////BENIGN TAMMY SCALP/SKIN NECK 04/25/2007 02/16/2017 SCARS: Acne-related (chin) 04/25/2007 0 02/16/2017 documented as of this encounter (statuses as of 08/02/2023) [facility] History of Past illness Narrative* Problem Noted Date Diagnosed Date Resolved Date Postinflammatory skin changes 07/20/2012 02/16/2017 Epidermal cyst 07/20/2012 02/16/2017 Solar Lentigines 02/18/2010 02/16/2017 SOLAR LENTIGINES///DYSCHROMIA OTHER 06/18/2008 02/16/2017 ACTINIC DAMAGE///CHR SOLAR SKIN DAMAGE NOS 06/18/2008 02/16/2017 Dermatitis due to cosmetics 06/18/2008 02/16/2017 Contact dermatitis and other eczema, due to unspecified cause 06/18/2008 02/16/2017 Contact dermatitis and other eczema due to other specified agent 06/18/2008 02/16/2017 NEVUS CHEST/BACK///BENIGN TAMMY SKIN TRUNK 04/25/2007 02/16/2017 NEVUS///BENIGN TAMMY SKIN FACE NEC 04/25/2007 02/16/2017 NEVI////BENIGN TAMMY SCALP/SKIN NECK 04/25/2007 02/16/2017 SCARS: Acne-related (chin) 04/25/2007 0 02/16/2017 documented as of this encounter (statuses as of 09/19/2023) [facility] History of Past illness Narrative* Problem Noted Date Diagnosed Date Resolved Date Postinflammatory skin changes 07/20/2012 02/16/2017 Epidermal cyst 07/20/2012 02/16/2017 Solar Lentigines 02/18/2010 02/16/2017 SOLAR LENTIGINES///DYSCHROMIA OTHER 06/18/2008 02/16/2017 ACTINIC DAMAGE///CHR SOLAR SKIN DAMAGE NOS 06/18/2008 02/16/2017 Dermatitis due to cosmetics 06/18/2008 02/16/2017 Contact dermatitis and other eczema, due to unspecified cause 06/18/2008 02/16/2017 Contact dermatitis and other eczema due to other specified agent 06/18/2008 02/16/2017 NEVUS CHEST/BACK///BENIGN TAMMY SKIN TRUNK 04/25/2007 02/16/2017 NEVUS///BENIGN TAMMY SKIN FACE NEC 04/25/2007 02/16/2017 NEVI////BENIGN TAMMY SCALP/SKIN NECK 04/25/2007 02/16/2017 SCARS: Acne-related (chin) 04/25/2007 0 02/16/2017 documented as of this encounter (statuses as of 10/05/2023) [facility] History of Past illness Narrative* Problem Noted Date Diagnosed Date Resolved Date Postinflammatory skin changes 07/20/2012 02/16/2017 Epidermal cyst 07/20/2012 02/16/2017 Solar Lentigines 02/18/2010 02/16/2017 SOLAR LENTIGINES///DYSCHROMIA OTHER 06/18/2008 02/16/2017 ACTINIC DAMAGE///CHR SOLAR SKIN DAMAGE NOS 06/18/2008 02/16/2017 Dermatitis due to cosmetics 06/18/2008 02/16/2017 Contact dermatitis and other eczema, due to unspecified cause 06/18/2008 02/16/2017 Contact dermatitis and other eczema due to other specified agent 06/18/2008 02/16/2017 NEVUS CHEST/BACK///BENIGN TAMMY SKIN TRUNK 04/25/2007 02/16/2017 NEVUS///BENIGN TAMMY SKIN FACE NEC 04/25/2007 02/16/2017 NEVI////BENIGN TAMMY SCALP/SKIN NECK 04/25/2007 02/16/2017 SCARS: Acne-related (chin) 04/25/2007 0 02/16/2017 documented as of this encounter (statuses as of 10/05/2023) [facility] History of Past illness Narrative* Problem Noted Date Diagnosed Date Resolved Date Postinflammatory skin changes 07/20/2012 02/16/2017 Epidermal cyst 07/20/2012 02/16/2017 Solar Lentigines 02/18/2010 02/16/2017 SOLAR LENTIGINES///DYSCHROMIA OTHER 06/18/2008 02/16/2017 ACTINIC DAMAGE///CHR SOLAR SKIN DAMAGE NOS 06/18/2008 02/16/2017 Dermatitis due to cosmetics 06/18/2008 02/16/2017 Contact dermatitis and other eczema, due to unspecified cause 06/18/2008 02/16/2017 Contact dermatitis and other eczema due to other specified agent 06/18/2008 02/16/2017 NEVUS CHEST/BACK///BENIGN TAMMY SKIN TRUNK 04/25/2007 02/16/2017 NEVUS///BENIGN TAMMY SKIN FACE NEC 04/25/2007 02/16/2017 NEVI////BENIGN TAMMY SCALP/SKIN NECK 04/25/2007 02/16/2017 SCARS: Acne-related (chin) 04/25/2007 0 02/16/2017 documented as of this encounter (statuses as of 10/07/2023) [facility] History of Past illness Narrative* Problem Noted Date Diagnosed Date Resolved Date Postinflammatory skin changes 07/20/2012 02/16/2017 Epidermal cyst 07/20/2012 02/16/2017 Solar Lentigines 02/18/2010 02/16/2017 SOLAR LENTIGINES///DYSCHROMIA OTHER 06/18/2008 02/16/2017 ACTINIC DAMAGE///CHR SOLAR SKIN DAMAGE NOS 06/18/2008 02/16/2017 Dermatitis due to cosmetics 06/18/2008 02/16/2017 Contact dermatitis and other eczema, due to unspecified cause 06/18/2008 02/16/2017 Contact dermatitis and other eczema due to other specified agent 06/18/2008 02/16/2017 NEVUS CHEST/BACK///BENIGN TAMMY SKIN TRUNK 04/25/2007 02/16/2017 NEVUS///BENIGN TAMMY SKIN FACE NEC 04/25/2007 02/16/2017 NEVI////BENIGN TAMMY SCALP/SKIN NECK 04/25/2007 02/16/2017 SCARS: Acne-related (chin) 04/25/2007 0 02/16/2017 documented as of this encounter (statuses as of 10/11/2023) [facility] Atrophic vaginitis- Primary Postmenopausal atrophic vaginitis Glycosuria [facility] Diagnosis Onset Date Resolution Status Personal history of colonic polyps acute Type 1 diabetes mellitus acu te Benign essential hypertension chronic 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 Mixed hyperlipidemia chronic Presence of insulin pump chr onic DKA (diabetic ketoacidosis) acute [facility] Work Phone: Evaluation note* Diagnosis Onset Date Resolution Status Personal history of colonic polyps acute Type 1 diabetes mellitus acu te Benign essential hypertension chronic 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 Mixed hyperlipidemia chronic Presence of insulin pump chr onic Alcohol abuse acute DKA (diabetic ketoacidosis) acute [facility] Work Phone: Evaluation note* Diagnosis Diabetic ketoacidosis without coma associated with type 1 diabetes mellitus (HCC)- Primary Acquired hypothyroidism Unspecified hypothyroidism Anxiety with depression [facility] Diagnosis Type 1 diabetes mellitus without complication (HCC)- Primary Type I (juvenile type) diabetes mellitus without mention of complication, not stated as uncontrolled Acquired hypothyroidism Unspecified hypothyroidism ETOH abuse Alcohol abuse, unspecified Anxiety with depression [facility] Diagnosis Onset Date Resolution Status Alcohol withdrawal acute [facility] Work Phone: Evaluation note* Diagnosis Onset Date Resolution Status Alcohol withdrawal acute Desire for detoxification ac quechan Diabetes acute [facility] Work Phone: Evaluation note* Diagnosis Pain with urination- Primary Renal colic [facility] Diagnosis Dysuria- Primary [facility] Diagnosis Onset Date Resolution Status 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 acute Insulin pump titration acute Mixed hyperlipidemia acute Presence of insulin pump acu te Type 1 diabetes mellitus acu te Hypertension chronic Hx of adenomatous colonic polyps acute [facility] Work Phone: Evaluation note* Diagnosis Atrophic vaginitis Postmenopausal atrophic vaginitis [facility]* Diagnosis Atrophic vaginitis- Primary Postmenopausal atrophic vaginitis [facility] Diagnosis Acute cystitis without hematuria- Primary Acute cystitis [facility] Diagnosis Acute cystitis without hematuria- Primary Acute cystitis [facility] Diagnosis Onset Date Resolution Status Hypertension chronic 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 Mixed hyperlipidemia chronic Presence of insulin pump chr onic Type 1 diabetes mellitus chr onic [facility] Work Phone: Evaluation note* Diagnosis Subacute cough- Primary Cough Fatigue, unspecified type Mild intermittent asthma, uncomplicated Unspecified asthma Type 1 diabetes mellitus without complication (HCC) Type I (juvenile type) diabetes mellitus without mention of complication, not stated as uncontrolled Acquired hypothyroidism Unspecified hypothyroidism Weight gain Abnormal weight gain [facility]* Diagnosis Hyponatremia- Primary Hyposmolality and/or hyponatremia [facility]* Diagnosis Type 1 diabetes mellitus without complication (HCC)- Primary Type I (juvenile type) diabetes mellitus without mention of complication, not stated as uncontrolled Acquired hypothyroidism Unspecified hypothyroidism Hyponatremia Hyposmolality and/or hyponatremia Abnormal x-ray Other nonspecific (abnormal) findings on radiological and other examinations of body structure Pure hypercholesterolemia Elevated liver enzymes Other nonspecific abnormal serum enzyme levels [facility]* Diagnosis Dysuria- Primary [facility]* Diagnosis Atrophic vaginitis Postmenopausal atrophic vaginitis [facility]* Diagnosis Rib injury- Primary Sprain of ribs documented in this encounter [facility] noteNo assessment information availableWCleveland [facility] Work Phone: Evaluation note* Diagnosis Encounter for gynecological examination (general) (routine) without abnormal findings- Primary Encounter for screening mammogram for breast cancer Dense breast tissue Vaginal atrophy Postmenopausal atrophic vaginitis Hx of hysterectomy Acquired absence of both cervix and uterus [facility] Diagnosis Encounter for gynecological examination (general) (routine) without abnormal findings Encounter for screening mammogram for breast cancer Dense breast tissue [facility]* Diagnosis Impingement of right ulnar nerve- Primary [facility]* Diagnosis Median nerve dysfunction, 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 [facility]* Diagnosis Rib injury Sprain of ribs [facility]* Diagnosis Abnormal x-ray Other nonspecific (abnormal) findings on radiological and other examinations of body structure [facility]* Diagnosis Subacute cough Cough [facility]* Diagnosis Acute conjunctivitis of right eye, unspecified acute conjunctivitis type- Primary [facility]* Diagnosis Vaginal irritation- Primary Unspecified noninflammatory disorder of vagina documented in this encounter [facility] note* Diagnosis Neck mass- Primary Swelling, mass, or lump in head and neck documented in this encounter [facility] note* Diagnosis Anemia, unspecified type- Primary documented in this encounter [facility] note* Diagnosis Mass of right parotid gland- Primary documented in this encounter [facility] note* Diagnosis Neck mass Swelling, mass, or lump in head and neck documented in this encounter [facility] note* Diagnosis Mass of right parotid gland documented in this encounter [facility] note* Diagnosis Mass of right parotid gland- Primary documented in this encounter [facility] note* Diagnosis Parotid mass- Primary Swelling, mass, or lump in head and neck documented in this encounter [facility] note* Diagnosis Encounter for gynecological examination with abnormal finding- Primary Routine gynecological examination Encounter for screening mammogram for breast cancer Dense breast tissue Vaginal atrophy Postmenopausal atrophic vaginitis Parotid mass Swelling, mass, or lump in head and neck documented in this encounter [facility] note* Diagnosis Pre-operative examination- Primary Preoperative examination, unspecified Pure hypercholesterolemia Essential hypertension, benign Mild intermittent asthma, uncomplicated (HCC) Unspecified asthma Type 1 diabetes mellitus without complication (HCC) Type I (juvenile type) diabetes mellitus without mention of complication, not stated as uncontrolled Alcohol abuse Alcohol abuse, unspecified Anxiety and depression Dysthymic disorder Acquired hypothyroidism Unspecified hypothyroidism Current smoker Tobacco use disorder Gastroesophageal reflux disease, unspecified whether esophagitis present Parotid mass Swelling, mass, or lump in head and neck * Assessment & Plan Note - Jamison Baca APRN.CNP - 10/11/2024 9:13 AM EDT Associated Problem(s): GERD (gastroesophageal reflux disease) Assessment: rx as needed * Assessment & Plan Note - Jamison Baca APRN.CNP - 10/11/2024 9:11 AM EDT Associated Problem(s): Current smoker Assessment: 0.25-0.5ppd, denies COPD * Assessment & Plan Note - Jamison Baca APRN.CNP - 10/11/2024 9:11 AM EDT Associated Problem(s): Hypothyroidism Assessment: stable on rx per pt TSH Date Value Ref Range Status 03/21/2023 2.750 0.270 - 4.200 mIU/L Final * Assessment & Plan Note - Jamison Baca APRN.CNP - 10/11/2024 9:11 AM EDT Associated Problem(s): Anxiety and depression Assessment: stable on rx per pt * Assessment & Plan Note - Jamison Baca APRN.CNP - 10/11/2024 9:10 AM EDT Associated Problem(s): Alcohol abuse Assessment: denies any current daily ETOH Albumin (g/dL) Date Value 03/21/2023 4.4 Bilirubin, Total (mg/dL) Date Value 03/21/2023 0.6 Bilirubin, Direct (mg/dL) Date Value 03/21/2023 0.2 (H) Alkaline Phosphatase (U/L) Date Value 03/21/2023 85 AST (U/L) Date Value 03/21/2023 22 ALT (U/L) Date Value 03/21/2023 16 Protein, Total (g/dL) Date Value 03/21/2023 6.9 * Assessment & Plan Note - Jamison Baca APRN.CNP - 10/11/2024 9:09 AM EDT Associated Problem(s): Type 1 diabetes mellitus (HCC) Assessment: follows endo, type 1, insulin pump, reviewed to set to basal rate DOS, pt verbalized understanding. New A1c pending Hemoglobin A1C Date Value 02/14/2024 6.8 12/03/2022 8.2 % 08/27/2019 7.5 % * Assessment & Plan Note - Jamison Baca APRN.CNP - 10/11/2024 9:09 AM EDT Associated Problem(s): Mild intermittent asthma, uncomplicated (HCC) Assessment: rx as needed * Assessment & Plan Note - Jamison Baca APRN.CNP - 10/11/2024 9:08 AM EDT Associated Problem(s): Essential hypertension, benign Assessment: controlled on rx * Assessment & Plan Note - Jamison Baca APRN.CNP - 10/11/2024 9:08 AM EDT Associated Problem(s): Pure hypercholesterolemia Assessment: c/w statin [facility]* Diagnosis Pre-operative examination- Primary Preoperative examination, unspecified Pure hypercholesterolemia Essential hypertension, benign Mild intermittent asthma, uncomplicated (HCC) Unspecified asthma Type 1 diabetes mellitus without complication (HCC) Type I (juvenile type) diabetes mellitus without mention of complication, not stated as uncontrolled Alcohol abuse Alcohol abuse, unspecified Anxiety and depression Dysthymic disorder Acquired hypothyroidism Unspecified hypothyroidism Current smoker Tobacco use disorder Gastroesophageal reflux disease, unspecified whether esophagitis present Mass of right parotid gland- Primary [facility]* Diagnosis Pre-operative examination- Primary Preoperative examination, unspecified Pure hypercholesterolemia Essential hypertension, benign Mild intermittent asthma, uncomplicated (HCC) Unspecified asthma Type 1 diabetes mellitus without complication (HCC) Type I (juvenile type) diabetes mellitus without mention of complication, not stated as uncontrolled Alcohol abuse Alcohol abuse, unspecified Anxiety and depression Dysthymic disorder Acquired hypothyroidism Unspecified hypothyroidism Current smoker Tobacco use disorder Gastroesophageal reflux disease, unspecified whether esophagitis present Dense breast tissue- Primary Abnormal mammogram Abnormal mammogram, unspecified documented in this encounter [facility] note* Diagnosis Onset Date Resolution Status Admit Date Hypertension chronic December 03 7:54am Hypothyroidism due to Hashim myrtle's thyroiditis chronic December 03, 2024 7 :54am Presence of insulin pump chronic December 03, 2024 7:54am Type 1 diabetes mellitus chronic December 03, 2024 7:54am [facility] Work Phone: [facility]* Diagnosis Pre-operative examination- Primary Preoperative examination, unspecified Pure hypercholesterolemia Essential hypertension, benign Mild intermittent asthma, uncomplicated (HCC) Unspecified asthma Type 1 diabetes mellitus without complication (HCC) Type I (juvenile type) diabetes mellitus without mention of complication, not stated as uncontrolled Alcohol abuse Alcohol abuse, unspecified Anxiety and depression Dysthymic disorder Acquired hypothyroidism Unspecified hypothyroidism Current smoker Tobacco use disorder Gastroesophageal reflux disease, unspecified whether esophagitis present Abnormal mammogram- Primary Abnormal mammogram, unspecified documented in this encounter [facility] note* Diagnosis Pre-operative examination- Primary Preoperative examination, unspecified Pure hypercholesterolemia Essential hypertension, benign Mild intermittent asthma, uncomplicated (HCC) Unspecified asthma Type 1 diabetes mellitus without complication (HCC) Type I (juvenile type) diabetes mellitus without mention of complication, not stated as uncontrolled Alcohol abuse Alcohol abuse, unspecified Anxiety and depression Dysthymic disorder Acquired hypothyroidism Unspecified hypothyroidism Current smoker Tobacco use disorder Gastroesophageal reflux disease, unspecified whether esophagitis present Dense breast tissue Abnormal mammogram Abnormal mammogram, unspecified documented in this encounter [facility] note* Diagnosis Pre-operative examination- Primary Preoperative examination, unspecified Pure hypercholesterolemia Essential hypertension, benign Mild intermittent asthma, uncomplicated (HCC) Unspecified asthma Type 1 diabetes mellitus without complication (HCC) Type I (juvenile type) diabetes mellitus without mention of complication, not stated as uncontrolled Alcohol abuse Alcohol abuse, unspecified Anxiety and depression Dysthymic disorder Acquired hypothyroidism Unspecified hypothyroidism Current smoker Tobacco use disorder Gastroesophageal reflux disease, unspecified whether esophagitis present Abnormal mammogram Abnormal mammogram, unspecified documented in this encounter [facility] note* Diagnosis Pre-operative examination- Primary Preoperative examination, unspecified Pure hypercholesterolemia Essential hypertension, benign Mild intermittent asthma, uncomplicated (HCC) Unspecified asthma Type 1 diabetes mellitus without complication (HCC) Type I (juvenile type) diabetes mellitus without mention of complication, not stated as uncontrolled Alcohol abuse Alcohol abuse, unspecified Anxiety and depression Dysthymic disorder Acquired hypothyroidism Unspecified hypothyroidism Current smoker Tobacco use disorder Gastroesophageal reflux disease, unspecified whether esophagitis present B12 deficiency- Primary Other B-complex deficiencies [facility] Pre-operative examination- Primary Preoperative examination, unspecified Pure hypercholesterolemia Essential hypertension, benign Mild intermittent asthma, uncomplicated (HCC) Unspecified asthma Type 1 diabetes mellitus without complication (HCC) Type I (juvenile type) diabetes mellitus without mention of complication, not stated as uncontrolled Alcohol abuse Alcohol abuse, unspecified Anxiety and depression Dysthymic disorder Acquired hypothyroidism Unspecified hypothyroidism Current smoker Tobacco use disorder Gastroesophageal reflux disease, unspecified whether esophagitis present Sebaceous cyst of right axilla- Primary Sebaceous cyst [facility]. Barrientos [facility] July 26, 2022 7:16am Note Date/Time July 26, 2022 7 :16am [facility] Medical Records Department [address] [place] [address] History & Physical Exam 07/26/22 0715 MR#: [id number] Acct: [id number] Name: MAYI MATA Rep #:[id number] : 1965 57 From: Whitney Barrientos MD PCP: Dr. William Steinberg MD Status:[facility] [place] Location: [place] [address] History and Physical Date of Admission: 07/26/22 Date of Service:? 07/09/22 MR#: [id number] Acct: [id number] Name:? MAYI MATA Rep #: [id number] : 1965 ? ? Provider: Dr. Whitney Barrientos MD Age/Sex:? 57/F ? ? Location: [facility] Status: Signed Intake Vital Signs ? 02/21/2219:25 07/09/2307:36 Height 5 ft 4 in 5 ft 4 in Weight: ? 153 lb BMI ? 26.2 BP ? 131/88 H Blood Pressure Location ? Rt brachial Position ? Sitting Respiration ? 17 Pulse ? 54 L Pulse Source ? Monitor Temp ? 97.3 F L Temp Source ? Temporal Pulse Oximetry (%) ? 96 Oxygen Delivery Method ? room air Intake Visit Reasons:?CSCOPE Chief Complaint: cscope Is patient in pain?: No Allergies No Known Allergies Allergy (Verified 07/09/22 08:39) Medications ascorbic acid (vitamin C) 1,000 mg tablet,extended release 1,000 mg PO DAILY supplement 06/06/17 [History Confirmed 07/09/22] aspirin 81 mg tablet,delayed release (Luis Felipe Low Dose Aspirin) 81 mg PO QDAY heart health 06/06/17 [History Confirmed 07/09/22] fluticasone 500 mcg-salmeterol 50 mcg/dose blistr powdr for inhalation (Advair Diskus) 1 inh inhalation DAILY asthma 06/06/17 [History Confirmed 07/09/22] lansoprazole 30 mg capsule,delayed release (Prevacid) 30 mg PO PRN PRN GERD 06/06/17 [History Confirmed 07/09/22] cyanocobalamin (vitamin B-12) 1,000 mcg capsule 1,000 mcg PO DAILY vitamin 07/15/17 [History Confirmed 07/09/22] insulin syringe-needle U-100 0.3 mL 31 gauge x 5/16 (BD Insulin Syringe Ultra- Fine) #20 ea 07/10/20 [Rx Confirmed 07/09/22] cholecalciferol (vitamin D3) 25 mcg (1,000 unit) capsule 25 mcg PO DAILY supplement 08/26/20 [History Confirmed 07/09/22] hydrochlorothiazide 25 mg tablet 25 mg PO QDAY blood pressure 10/17/21 [History Confirmed 07/09/22] lovastatin 40 mg tablet 40 mg PO BID cholesterol 10/17/21 [History Confirmed 07/09/22] insulin aspart U-100 100 unit/mL subcutaneous solution (Novolog U-100 Insulin aspart) See Rx Instructions subcut QDAY e10.9 #50 mL 12/24/21 [Rx Confirmed 07/09/22] escitalopram oxalate 10 mg tablet 10 mg PO DAILY anxiety 02/11/22 [History Confirmed 07/09/22] multivitamin 1 tab PO DAILY #30 tabs 02/23/22 [Rx Confirmed 07/09/22] lisinopril 40 mg tablet 40 mg PO QDAY blood pressure #90 tabs 03/10/22 [Rx Confirmed 07/09/22] blood sugar diagnostic (Accu-Chek Guide test strips) #450 ea 05/11/22 [Rx Confirmed 07/09/22] levothyroxine 100 mcg tablet 100 mcg PO DAILY #90 tabs 07/08/22 [Rx Confirmed 07/09/22] PFSH Medical History?(Updated 07/10/22 @ 07:[address] 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 S/P appendectomy S/P colonoscopy S/P hysterectomy S/P oophorectomy Family History? Father Malignant tumor of kidney ArthritisGrandfather Colon cancer Social History? Smoking Status:? Light Smoker (<10/day) second hand exposure:? No alcohol intake:? never substance use type:? does not use caffeine:? Yes what type of physical activity do you participate in:? walking frequency:? 1-2 times per week seatbelt use:? always HPI HPI HPI: 57 y/o F presents for colonoscopy, pt last colonoscopy was last year and she had10+ polyps and one was 10 mm.? Pt has BM daily, no blood; denies abd pain/n/v/GERD. denies FH of colon cancer. ROS General General: No weight change, appetite, fatigue, colon cancer or breast cancer HEENT HEENT: No difficulty swallowing, eye injury, eye surgery, swollen glands or hoarseness Endo Endocrine: Yes thyroid disease and diabetes mellitus; No thyroid cancer, Hair loss, heat intolerance or cold intolerance Skin Skin: No rash or changing moles Musc Musculoskeletal: No back problems, arthritis, rheumatoid arthritis, gout or joint pain Cardio Cardiovascular: No murmur, pacemaker, heart disease, atrial fibrillation, high blood pressure, heart attack, heart stent, palpitations, shortness of breat withexertion or chest pain Psych Psychiatric: Yes anxiety; No depression or hearing voices Resp Respiratory: No shortness of breath, No sleep apnea, No cough, No COPD, No asthma, No emphysema and No wheezing Gastro Gastrointestinal: No abdominal pain, No nausea or vomiting, No diarrhea, No constipation, No blood in stool, No acid reflux, No hemorrhoids, No ulcers, No gallbladder problem and No black,tarry stools Chace Hematologic: No blood thinners, No blood disorders, No bleeding, No anemia and No blood clots Neuro Neurologic: No numbness and No tingling Exam Const General: cooperative, healthy appearing and no acute distress [facility] Head: normal to inspection Resp Effort & Inspection: normal respiratory effort Cardio Rate: regular rate GI Inspection: non-distended Palpation: soft, no guarding and nontender Skin General: no rashes or lesions noted Neuro General: patient oriented x3 Extrem General: no clubbing, cyanosis or edema Psych Affect: normal affect Assessment and Plan Assessment and Plan (1) Hx of adenomatous colonic polyps: ?Status:?Acute Plan I have discussed the above with the patient. I have offered the patient colonoscopy for evaluation. I have explained the risks/benefits of the procedure and described the procedure.? I have discussed the risks with the patient, including but not limited to:? infection, bleeding, perforation of the GI tract requiring emergency surgery, inability to complete the procedure, injury to any internal organs, complications of anesthesia, etc. - the patient understands and agrees to proceed. I have answered all the patient's questions to the patient's satisfaction and the patient has no further questions. The patient has been given instructions for the colon cleansing preparation. oneday of clears miralax/dulcolax split prep. Coding Level of Care Code Off vis,est,level 3 Diagnoses Hx of adenomatous colonic polyps? Z86.010 07/10/2215 <Electronically signed by Whitney Barrientos MD> Date Whitney Barrientos MD 07/26/22 0716 <Electronically signed by Whitney Barrientos MD> Cosigner Signature (if applicable): CC: Dr. Whitney Barrientos MD; Dr. William Steinberg MD~ Signed ADDENDUM by Dr. Whitney Barrientos MD on 07/26/22 at 0716 Addendum I have examined the patient and the H&P has been reviewed. There are no clinicalchanges since date of exam. 07/26/22 0716<Electronically signed by Whitney Barrientos MD> Cosigner Signature (if applicable): cc: Dr. Whitney Barrientos MD; Dr. William Steinberg MD ~* Signed [facility] Work Phone: Reason for referral (narrative)* Diagnostic Procedure Only (Urgent) - Closed Specialty Diagnoses / Procedures Referred By Contac t Referred To Contact XR IMAGING Diagnoses Rib injury Procedures XR RIBS/CHEST 3V AP RIB/OBLS/CXR LEFT RADEX RIBS UNI W/POSTEROANT CH MINIMUM 3 VIEWS Kimberly Frost PA-C [address] [place] [address] [place] [id number] Referral ID Status Reason Start Date Expiration Date V isits Requested Visits Authorized [id number] Closed Auto-Generate d Referral 08/02/2023 08/31/2024 1 1 [facility] for referral (narrative)* Diagnostic Procedure Only (Routine) - Authorized Specialty Diagnoses / Procedures Referred By Contac t Referred To Contact [facility] Diagnoses Encounter for gynecological examination (general) (routine) without abnormal findings Encounter for screening mammogram for breast cancer Dense breast tissue Procedures SAUNDRA SCREENING W TAMARA SCREENING DIGITAL BREAST TOMOSYNTHESIS BI SCREENING MAMMOGRAPHY BI 2-VIEW BREAST INC Peace Das APRN.CNM [address] [place] [address] [facility] [address] [place] [address] Referral ID Status Reason Start Date Expiration Date Visits Requested Visits Authorized [id number] Authorized Auto-Generat ed Referral 10/04/2023 11/02/2024 1 1 [facility] for referral (narrative)* Diagnostic Procedure Only (Urgent) - Closed Specialty Diagnoses / Procedures Referred By Contac t Referred To Contact XR IMAGING Diagnoses Rib injury Procedures XR RIBS/CHEST 3V AP RIB/OBLS/CXR LEFT RADEX RIBS UNI W/POSTEROANT CH MINIMUM 3 VIEWS Kimberly Frost PA-C [address] [place] [address] [place] [id number] Referral ID Status Reason Start Date Expiration Date V isits Requested Visits Authorized [id number] Closed Auto-Generate d Referral 08/02/2023 08/31/2024 1 1 [facility] for referral (narrative)No reason for referral [facility] Work Phone: Reason for visit Narrative* Diagnostic Procedure Only (Routine) - Closed Specialty Diagnoses / Procedures Referred By Avelino t Referred To Contact BR IMAGING Diagnoses Encounter for gynecological examination (general) (routine) without abnormal findings Encounter for screening mammogram for breast cancer Dense breast tissue Procedures SAUNDRA SCREENING W TAMARA SCREENING DIGITAL BREAST TOMOSYNTHESIS BI SCREENING MAMMOGRAPHY BI 2-VIEW BREAST INC Peace Das, CELL ROOM SUPERVISOR.CNM [address] [place] [address] [facility] [address] [place] [address] Referral ID Status Reason Start Date Expiration Date V isits Requested Visits Authorized [id number] Closed Auto-Generate d Referral 10/04/2023 11/02/2024 1 1 [facility] for visit Narrative* Diagnostic Procedure Only (Urgent) - Closed Specialty Diagnoses / Procedures Referred By Avelino t Referred To Contact XR IMAGING Diagnoses Rib injury Procedures XR RIBS/CHEST 3V AP RIB/OBLS/CXR LEFT RADEX RIBS UNI W/POSTEROANT CH MINIMUM 3 VIEWS Kimberly Frost PA-C [address] [place] [address] [place] [id number] Referral ID Status Reason Start Date Expiration Date V isits Requested Visits Authorized [id number] Closed Auto-Generate d Referral 08/02/2023 08/31/2024 1 1 [facility] for visit Narrative* Diagnostic Procedure Only (Routine) - Closed Specialty Diagnoses / Procedures Referred By Avelino hernandes Referred To Contact [facility] IMAG[facility] Diagnoses Dense breast tissue Abnormal mammogram Procedures SAUNDRA DIAGNOSTIC RIGHT DIAGNOSTIC MAMMOGRAPHY COMPUTER-AIDED DETCJ UNI Peace Cuevas APRN.CNM [address] [place] [address] Phone: tel: fax: [facility] [address] [place] [address] Referral ID Status Reason Start Date Expiration Date V isits Requested Visits Authorized [id number] Closed Auto-Generate d Referral 12/25/2024 06/26/2025 1 1 [facility] Diagnostic Procedure Only (Routine) - Closed Specialty Diagnoses / Procedures Referred By Avelino hernandes Referred To Contact BR IM[facility] Diagnoses Abnormal mammogram Procedures US BREAST LTD RIGHT US BREAST UNI REAL TIME WITH IMAGE LIMITED Peace Cuevas APRN.CNM [address] [place] [address] Phone: tel: fax:[phone] [facility] [address] [place] [address] Referral ID Status Reason Start Date Expiration Date V isits Requested Visits Authorized [id number] Closed Auto-Generate d Referral 12/25/2024 06/26/2025 1 1 [facility] Summary Purpose Family History No Family History Records Found Relationship Condition Age at Onset Recorded Date/T fabrice father Malignant neoplasm of kidney Unknown Arthritis Unknown grandfather Malignant neoplasm of colon Unknown Advance Directives No Advanced Directives Records FoundDocuments on File Type Date Recorded Patient Rouge Presser Expl anation Advance Directive(s) 07/12/2016 11:38 AM Advance Directive Response Recorded Date/ Time Living Will Yes October 17, 2021 8:42pm Power of Esthetician/Skin Therapist Yes October 17 8:42pm Advance Directive Response Recorded Date/ Time Living Will No October 17, 2021 11:56pm Power of Esthetician/Skin Therapist No October 17 11:56pm Advance Directive Response Recorded Date/ Time Living Will No February 21 5:08pm Power of Esthetician/Skin Therapist No February 21 5:08pm Advance Directive Response Recorded Date/ Time Living Will No February 21 7:27pm Power of Esthetician/Skin Therapist No February 21 7:27pm Advance Directive Response Recorded Date/ Time Living Will No February 21 6:27pm Power of Esthetician/Skin Therapist No February 21 6:27pm Advance Directive Response Recorded Date/ Time Living Will No July 21 11:03am Power of Esthetician/Skin Therapist No July 21, 2022 11:03am Advance Directive Response Recorded Date/ Time Living Will No July 21 12:03pm Power of Esthetician/Skin Therapist No July 21, 2022 12:03pm Chief Complaint and Reason for Visit Chief Complaint SCREENING 6 M FU DKA Reason for Visit Personal history of colonic polyps Type 1 diabetes mellitus Benign essential hypertension 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 Mixed hyperlipidemia Presence of insulin pump DKA (diabetic ketoacidosis) Chief Complaint SCREENING 6 M FU DKA DKA DKA Reason for Visit Personal history of colonic polyps Type 1 diabetes mellitus Benign essential hypertension 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 Mixed hyperlipidemia Presence of insulin pump Alcohol abuse DKA (diabetic ketoacidosis) Chief Complaint 6 M FU ACUTE ALCOHOL WITHDRAWL Reason for Visit Alcohol withdrawal Chief Complaint 6 M FU ACUTE ALCOHOL WITHDRAWL ACUTE ALCOHOL WITHDRAWL ACUTE ALCOHOL WITHDRAWL Reason for Visit Alcohol withdrawal Desire for detoxification Diabetes Chief Complaint 4 M FU CSCOPE Reason for Visit Hypothyroidism due t o Meng's thyroiditis Insulin pump titration Mixed hyperlipidemia Presence of insulin pump Type 1 diabetes mellitus Hypertension Hx of adenomatous colonic polyps Chief Complaint 4 M FU CSCOPE SCREENING Reason for Visit Hypothyroidism due t o Meng's thyroiditis Insulin pump titration Mixed hyperlipidemia Presence of insulin pump Type 1 diabetes mellitus Hypertension Hx of adenomatous colonic polyps Chief Complaint SCREENING e order 5 m fu Reason for Visit Hypertension 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 Mixed hyperlipidemia Presence of insulin pump Type 1 diabetes mellitus Chief Complaint INT LABS Chief Complaint Admit Date 6 M FU December 03, 2024 7:54a m Reason for Visit Admit Date Hypertension December 03, 2024 7:54a m Hypothyroidism due to Meng's thyroi ditis December 03, 2024 7:54am Presence of insulin pump December 03, 2024 7:54am Type 1 diabetes mellitus December 03, 2024 7:54am Reason for Referral Specialty Diagnoses / Procedures Referred By Avelino hernandes Referred To Contact Orthopedics Diagnoses Impingement of right ulnar nerve Procedures CONSULT TO ORTHOPAEDICS OFFICE/OUTPATIENT NEW HIGH MDM 60 MINUTES Junior Cadet APRN.POKER MANAGER [address] [place] [address] Referral ID Status Reason Start Date Expiration Date Visits Requested Visits Authorized [id number] Authorized PCP Requested Referral 03/05/2024 03/05/2025 1 1 Additional Source Comments INFORMATION SOURCE (unrecogn ized section and content) DATE CREATED AUTHOR 10/04/2020 [facility] DATE CREATED AUTHOR AUTHOR'S ORGANIZ ATION 10/29/2024 [facility] DATE CREATED AUTHOR AUTHOR'S ORGANIZ ATION 12/03/2024 [facility] DATE CREATED AUTHOR AUTHOR'S ORGANIZ ATION 04/05/2025 [facility] Source Comments (unrecognize d section and content) In the event this informatio n is protected by the Federal Confidentiality of Alcohol and Drug Abuse Patient Records regulations: The Federal rules restrict any use of the information to criminally investigate or prosecute any alcohol or drug abuse patient.[facility] the event this information is protected by the Federal Confidentiality of Alcohol and Drug Abuse Patient Records regulations: The Federal rules restrict any use of the information to criminally investigate or prosecute any alcohol or drug abuse patient.[facility] the event this information is protected by the Federal Confidentiality of Alcohol and Drug Abuse Patient Records regulations: The Federal rules restrict any use of the information to criminally investigate or prosecute any alcohol or drug abuse patient.[facility] the event this information is protected by the Federal Confidentiality of Alcohol and Drug Abuse Patient Records regulations: The Federal rules restrict any use of the information to criminally investigate or prosecute any alcohol or drug abuse patient.[facility] the event this information is protected by the Federal Confidentiality of Alcohol and Drug Abuse Patient Records regulations: The Federal rules restrict any use of the information to criminally investigate or prosecute any alcohol or drug abuse patient.[facility] the event this information is protected by the Federal Confidentiality of Alcohol and Drug Abuse Patient Records regulations: The Federal rules restrict any use of the information to criminally investigate or prosecute any alcohol or drug abuse patient.[facility] the event this information is protected by the Federal Confidentiality of Alcohol and Drug Abuse Patient Records regulations: The Federal rules restrict any use of the information to criminally investigate or prosecute any alcohol or drug abuse patient.[facility] the event this information is protected by the Federal Confidentiality of Alcohol and Drug Abuse Patient Records regulations: The Federal rules restrict any use of the information to criminally investigate or prosecute any alcohol or drug abuse patient.[facility] the event this information is protected by the Federal Confidentiality of Alcohol and Drug Abuse Patient Records regulations: The Federal rules restrict any use of the information to criminally investigate or prosecute any alcohol or drug abuse patient.[facility] the event this information is protected by the Federal Confidentiality of Alcohol and Drug Abuse Patient Records regulations: The Federal rules restrict any use of the information to criminally investigate or prosecute any alcohol or drug abuse patient.[facility] the event this information is protected by the Federal Confidentiality of Alcohol and Drug Abuse Patient Records regulations: The Federal rules restrict any use of the information to criminally investigate or prosecute any alcohol or drug abuse patient.[facility] the event this information is protected by the Federal Confidentiality of Alcohol and Drug Abuse Patient Records regulations: The Federal rules restrict any use of the information to criminally investigate or prosecute any alcohol or drug abuse patient.[facility] the event this information is protected by the Federal Confidentiality of Alcohol and Drug Abuse Patient Records regulations: The Federal rules restrict any use of the information to criminally investigate or prosecute any alcohol or drug abuse patient.[facility] the event this information is protected by the Federal Confidentiality of Alcohol and Drug Abuse Patient Records regulations: The Federal rules restrict any use of the information to criminally investigate or prosecute any alcohol or drug abuse patient.[facility] the event this information is protected by the Federal Confidentiality of Alcohol and Drug Abuse Patient Records regulations: The Federal rules restrict any use of the information to criminally investigate or prosecute any alcohol or drug abuse patient.[facility] the event this information is protected by the Federal Confidentiality of Alcohol and Drug Abuse Patient Records regulations: The Federal rules restrict any use of the information to criminally investigate or prosecute any alcohol or drug abuse patient.[facility] the event this information is protected by the Federal Confidentiality of Alcohol and Drug Abuse Patient Records regulations: The Federal rules restrict any use of the information to criminally investigate or prosecute any alcohol or drug abuse patient.[facility] the event this information is protected by the Federal Confidentiality of Alcohol and Drug Abuse Patient Records regulations: The Federal rules restrict any use of the information to criminally investigate or prosecute any alcohol or drug abuse patient.[facility] the event this information is protected by the Federal Confidentiality of Alcohol and Drug Abuse Patient Records regulations: The Federal rules restrict any use of the information to criminally investigate or prosecute any alcohol or drug abuse patient.[facility] the event this information is protected by the Federal Confidentiality of Alcohol and Drug Abuse Patient Records regulations: The Federal rules restrict any use of the information to criminally investigate or prosecute any alcohol or drug abuse patient.[facility] the event this information is protected by the Federal Confidentiality of Alcohol and Drug Abuse Patient Records regulations: The Federal rules restrict any use of the information to criminally investigate or prosecute any alcohol or drug abuse patient.[facility] the event this information is protected by the Federal Confidentiality of Alcohol and Drug Abuse Patient Records regulations: The Federal rules restrict any use of the information to criminally investigate or prosecute any alcohol or drug abuse patient.[facility] HospitalIn the event this information is protected by the Federal Confidentiality of Alcohol and Drug Abuse Patient Records regulations: The Federal rules restrict any use of the information to criminally investigate or prosecute any alcohol or drug abuse patient.[facility] HospitalIn the event this information is protected by the Federal Confidentiality of Alcohol and Drug Abuse Patient Records regulations: The Federal rules restrict any use of the information to criminally investigate or prosecute any alcohol or drug abuse patient.[facility] HospitalIn the event this information is protected by the Federal Confidentiality of Alcohol and Drug Abuse Patient Records regulations: The Federal rules restrict any use of the information to criminally investigate or prosecute any alcohol or drug abuse patient.[facility] HospitalIn the event this information is protected by the Federal Confidentiality of Alcohol and Drug Abuse Patient Records regulations: The Federal rules restrict any use of the information to criminally investigate or prosecute any alcohol or drug abuse patient.[facility] HospitalIn the event this information is protected by the Federal Confidentiality of Alcohol and Drug Abuse Patient Records regulations: The Federal rules restrict any use of the information to criminally investigate or prosecute any alcohol or drug abuse patient.[facility] HospitalIn the event this information is protected by the Federal Confidentiality of Alcohol and Drug Abuse Patient Records regulations: The Federal rules restrict any use of the information to criminally investigate or prosecute any alcohol or drug abuse patient.[facility] HospitalIn the event this information is protected by the Federal Confidentiality of Alcohol and Drug Abuse Patient Records regulations: The Federal rules restrict any use of the information to criminally investigate or prosecute any alcohol or drug abuse patient.[facility] HospitalIn the event this information is protected by the Federal Confidentiality of Alcohol and Drug Abuse Patient Records regulations: The Federal rules restrict any use of the information to criminally investigate or prosecute any alcohol or drug abuse patient.[facility] HospitalIn the event this information is protected by the Federal Confidentiality of Alcohol and Drug Abuse Patient Records regulations: The Federal rules restrict any use of the information to criminally investigate or prosecute any alcohol or drug abuse patient.[facility] HospitalIn the event this information is protected by the Federal Confidentiality of Alcohol and Drug Abuse Patient Records regulations: The Federal rules restrict any use of the information to criminally investigate or prosecute any alcohol or drug abuse patient.[facility] HospitalIn the event this information is protected by the Federal Confidentiality of Alcohol and Drug Abuse Patient Records regulations: The Federal rules restrict any use of the information to criminally investigate or prosecute any alcohol or drug abuse patient.[facility] HospitalIn the event this information is protected by the Federal Confidentiality of Alcohol and Drug Abuse Patient Records regulations: The Federal rules restrict any use of the information to criminally investigate or prosecute any alcohol or drug abuse patient.[facility] HospitalIn the event this information is protected by the Federal Confidentiality of Alcohol and Drug Abuse Patient Records regulations: The Federal rules restrict any use of the information to criminally investigate or prosecute any alcohol or drug abuse patient.[facility] HospitalIn the event this information is protected by the Federal Confidentiality of Alcohol and Drug Abuse Patient Records regulations: The Federal rules restrict any use of the information to criminally investigate or prosecute any alcohol or drug abuse patient.[facility] HospitalIn the event this information is protected by the Federal Confidentiality of Alcohol and Drug Abuse Patient Records regulations: The Federal rules restrict any use of the information to criminally investigate or prosecute any alcohol or drug abuse patient.[facility] HospitalIn the event this information is protected by the Federal Confidentiality of Alcohol and Drug Abuse Patient Records regulations: The Federal rules restrict any use of the information to criminally investigate or prosecute any alcohol or drug abuse patient.[facility] HospitalIn the event this information is protected by the Federal Confidentiality of Alcohol and Drug Abuse Patient Records regulations: The Federal rules restrict any use of the information to criminally investigate or prosecute any alcohol or drug abuse patient.[facility] HospitalIn the event this information is protected by the Federal Confidentiality of Alcohol and Drug Abuse Patient Records regulations: The Federal rules restrict any use of the information to criminally investigate or prosecute any alcohol or drug abuse patient.[facility] HospitalIn the event this information is protected by the Federal Confidentiality of Alcohol and Drug Abuse Patient Records regulations: The Federal rules restrict any use of the information to criminally investigate or prosecute any alcohol or drug abuse patient.[facility] HospitalIn the event this information is protected by the Federal Confidentiality of Alcohol and Drug Abuse Patient Records regulations: The Federal rules restrict any use of the information to criminally investigate or prosecute any alcohol or drug abuse patient.[facility] HospitalIn the event this information is protected by the Federal Confidentiality of Alcohol and Drug Abuse Patient Records regulations: The Federal rules restrict any use of the information to criminally investigate or prosecute any alcohol or drug abuse patient.[facility] HospitalIn the event this information is protected by the Federal Confidentiality of Alcohol and Drug Abuse Patient Records regulations: The Federal rules restrict any use of the information to criminally investigate or prosecute any alcohol or drug abuse patient.[facility] HospitalIn the event this information is protected by the Federal Confidentiality of Alcohol and Drug Abuse Patient Records regulations: The Federal rules restrict any use of the information to criminally investigate or prosecute any alcohol or drug abuse patient.[facility] HospitalIn the event this information is protected by the Federal Confidentiality of Alcohol and Drug Abuse Patient Records regulations: The Federal rules restrict any use of the information to criminally investigate or prosecute any alcohol or drug abuse patient.[facility] HospitalIn the event this information is protected by the Federal Confidentiality of Alcohol and Drug Abuse Patient Records regulations: The Federal rules restrict any use of the information to criminally investigate or prosecute any alcohol or drug abuse patient.[facility] HospitalIn the event this information is protected by the Federal Confidentiality of Alcohol and Drug Abuse Patient Records regulations: The Federal rules restrict any use of the information to criminally investigate or prosecute any alcohol or drug abuse patient.[facility] HospitalIn the event this information is protected by the Federal Confidentiality of Alcohol and Drug Abuse Patient Records regulations: The Federal rules restrict any use of the information to criminally investigate or prosecute any alcohol or drug abuse patient.[facility] HospitalIn the event this information is protected by the Federal Confidentiality of Alcohol and Drug Abuse Patient Records regulations: The Federal rules restrict any use of the information to criminally investigate or prosecute any alcohol or drug abuse patient.[facility] HospitalIn the event this information is protected by the Federal Confidentiality of Alcohol and Drug Abuse Patient Records regulations: The Federal rules restrict any use of the information to criminally investigate or prosecute any alcohol or drug abuse patient.[facility] HospitalIn the event this information is protected by the Federal Confidentiality of Alcohol and Drug Abuse Patient Records regulations: The Federal rules restrict any use of the information to criminally investigate or prosecute any alcohol or drug abuse patient.[facility] HospitalIn the event this information is protected by the Federal Confidentiality of Alcohol and Drug Abuse Patient Records regulations: The Federal rules restrict any use of the information to criminally investigate or prosecute any alcohol or drug abuse patient.[facility] HospitalIn the event this information is protected by the Federal Confidentiality of Alcohol and Drug Abuse Patient Records regulations: The Federal rules restrict any use of the information to criminally investigate or prosecute any alcohol or drug abuse patient.[facility] HospitalIn the event this information is protected by the Federal Confidentiality of Alcohol and Drug Abuse Patient Records regulations: The Federal rules restrict any use of the information to criminally investigate or prosecute any alcohol or drug abuse patient.[facility] HospitalIn the event this information is protected by the Federal Confidentiality of Alcohol and Drug Abuse Patient Records regulations: The Federal rules restrict any use of the information to criminally investigate or prosecute any alcohol or drug abuse patient.[facility] HospitalIn the event this information is protected by the Federal Confidentiality of Alcohol and Drug Abuse Patient Records regulations: The Federal rules restrict any use of the information to criminally investigate or prosecute any alcohol or drug abuse patient.[facility] HospitalIn the event this information is protected by the Federal Confidentiality of Alcohol and Drug Abuse Patient Records regulations: The Federal rules restrict any use of the information to criminally investigate or prosecute any alcohol or drug abuse patient.[facility] HospitalIn the event this information is protected by the Federal Confidentiality of Alcohol and Drug Abuse Patient Records regulations: The Federal rules restrict any use of the information to criminally investigate or prosecute any alcohol or drug abuse patient.[facility] HospitalIn the event this information is protected by the Federal Confidentiality of Alcohol and Drug Abuse Patient Records regulations: The Federal rules restrict any use of the information to criminally investigate or prosecute any alcohol or drug abuse patient.[facility] HospitalIn the event this information is protected by the Federal Confidentiality of Alcohol and Drug Abuse Patient Records regulations: The Federal rules restrict any use of the information to criminally investigate or prosecute any alcohol or drug abuse patient.[facility] HospitalIn the event this information is protected by the Federal Confidentiality of Alcohol and Drug Abuse Patient Records regulations: The Federal rules restrict any use of the information to criminally investigate or prosecute any alcohol or drug abuse patient.[facility] HospitalIn the event this information is protected by the Federal Confidentiality of Alcohol and Drug Abuse Patient Records regulations: The Federal rules restrict any use of the information to criminally investigate or prosecute any alcohol or drug abuse patient.[facility] HospitalIn the event this information is protected by the Federal Confidentiality of Alcohol and Drug Abuse Patient Records regulations: The Federal rules restrict any use of the information to criminally investigate or prosecute any alcohol or drug abuse patient.[facility] HospitalIn the event this information is protected by the Federal Confidentiality of Alcohol and Drug Abuse Patient Records regulations: The Federal rules restrict any use of the information to criminally investigate or prosecute any alcohol or drug abuse patient.[facility] HospitalIn the event this information is protected by the Federal Confidentiality of Alcohol and Drug Abuse Patient Records regulations: The Federal rules restrict any use of the information to criminally investigate or prosecute any alcohol or drug abuse patient.[facility] HospitalIn the event this information is protected by the Federal Confidentiality of Alcohol and Drug Abuse Patient Records regulations: The Federal rules restrict any use of the information to criminally investigate or prosecute any alcohol or drug abuse patient.[facility] HospitalIn the event this information is protected by the Federal Confidentiality of Alcohol and Drug Abuse Patient Records regulations: The Federal rules restrict any use of the information to criminally investigate or prosecute any alcohol or drug abuse patient.[facility] Reason for Visit (unrecogniz ed section and content) Reason Comments Follow Up Reason Comments Patient Update FYI-No Action Needed Reason Comments Patient Question Reason Comments Urinary Problem pelvic pressure and pain with urination x 6:30a Reason Comments Results Reason Comments Patient Update Reason Comments Medication Request Pyridium refill Reason Onset Date Comments Refill Request 08/03/2022 Reason Onset Date Comments Refill Request 08/11/2022 Reason Comments Results Orders Reason Onset Date Comments Refill Request 09/07/2022 Reason Comments Edema Reason Comments Fall Fall x 1 week, hit l eft side, pain in ribs and breasts radiates all across left side, hard to breath and talk d/t pain Reason Comments Yearly Exam Reason Onset Date Comments Refill Request 10/03/2023 Reason Comments Pain Right elbow pain, po ssible pinched nerve x 2 weeks Reason Comments Right ulnar nerve impingement REF: Bryan keyes Specialty Diagnoses / [facility] Contact [facility]opedics Diagnoses Impingement of right ulnar nerve Procedures CONSULT TO ORTHOPAEDICS OFFICE/OUTPATIENT [facility] 60 MINUTES Junior Cadet, CELL ROOM SUPERVISOR.POKER MANAGER [address] [place] [address] Referral ID Status Reason Start Date Expiration Date V isits Requested Visits Authorized [id number] Closed PCP Requested Referral 03/05/2024 03/05/2025 1 1 Reason Comments Eye Problem right x this am, mat ting and pain Reason Comments Problem Visit Reason Onset Date Comments Refill Request 07/22/2024 Reason Comments Lump Reason Comments Results Reason Comments Radiology CT Specialty Diagnoses / Procedures [facility] To Contact CT IMAGING Diagnoses Neck mass Procedures CT NECK SOFT TISSUE W IVCON CT SOFT TISSUE NECK W/CONTRAST MATERIAL William Steinberg MD [address] [place] [address] Phone: tel: fax: [place] [phone] Referral ID Status Reason Start Date Expiration Date V isits Requested Visits Authorized [id number] Closed Auto-Generate d Referral 09/21/2024 06/26/2025 1 1 Reason Comments New Patient Behind right ear bum p Specialty Diagnoses / Procedures Referred By [facility] t Referred To Contact Ent - Otolaryngology Diagnoses Mass of right parotid gland Procedures CONSULT TO ENT OFFICE/OUTPATIENT [facility] 60 MINUTES William Steinberg MD [address] [place] [address] Phone: tel: fax: Referral ID Status Reason Start Date Expiration Date V isits Requested Visits Authorized [id number] Closed PCP Requested Referral 09/21/2024 09/21/2025 1 1 Reason Onset Date Comments Refill Request 09/25/2024 Reason Comments Well Woman Reason Comments Consult surgery on 10/25/24 at [place] Reason Comments Mammogram Result Call Back Reason Comments Orders Care Teams (unrecognized sec tion and content) Tower Technician Relationship Specialty Start Date End Date William Steinberg MD [address] [place], [place] [id number] PCP - General Family Practice 05/19/16 Raphael Chi [address] [phone] Printing Agent Endocrinology 04/22/20 Tower Technician Relationship Specialty Start Date End Date William Steinberg MD [address] [place], [place] [address] PCP - General Family Practice 05/19/16 Raphael Chi [address] [facility] [address] [place] [phone] Printing Agent Endocrinology 04/22/20 Tower Technician Relationship Specialty Start Date End Date William Steinberg MD [address] [place], [place] [address] PCP - General Family Practice 05/19/16 Raphael Chi [address] [facility] [address] [place] [address] Printing Agent Endocrinology 04/22/20 Tower Technician Relationship Specialty Start Date End Date William Steinberg MD [address] [facility] [place] [address] PCP - General Family Practice 05/19/16 Raphael Chi [address] [facility] [address] [place] [address] Printing Agent Endocrinology 04/22/20 Tower Technician Relationship Specialty Start Date End Date William Steinberg MD [address] [facility] [place] [address] PCP - General Family Practice 05/19/16 Raphael Chi [address] [facility] [address] [place] [address] Printing Agent Endocrinology 04/22/20 Tower Technician Relationship Specialty Start Date End Date William Steinberg MD [address] [facility] [place] [address] PCP - General Family Practice 05/19/16 Raphael Chi [address] [facility] [address] [place] [address] Printing Agent Endocrinology 04/22/20 Tower Technician Relationship Specialty Start Date End Date William Steinberg MD [address] [facility] [place] [address] PCP - General Family Medicine 05/19/16 Raphael Chi [address] [facility] [address] [place] [address] Printing Agent Endocrinology 04/22/20 Tower Technician Relationship Specialty Start Date End Date William Steinberg MD [address] [facility] [place] [address] PCP - General Family Medicine 05/19/16 Raphael Chi [address] [facility] [address] [place] [address] Printing Agent Endocrinology 04/22/20 Tower Technician Relationship Specialty Start Date End Date William Steinberg MD [address] [facility] [place] [address] PCP - General Family Medicine 05/19/16 Raphael Cih [address] [facility] [address] [place] [address] Printing Agent Endocrinology 04/22/20 Tower Technician Relationship Specialty Start Date End Date William Steinberg MD [address] [facility] [place] [address] PCP - General Family Medicine 05/19/16 Raphael Chi [address] [facility] [address] [place] [address] Printing Agent Endocrinology 04/22/20 Tower Technician Relationship Specialty Start Date End Date William Steinberg MD [address] [facility] [place] [address] PCP - General Family Medicine 05/19/16 Raphael Chi [address] [facility] [address] [place] [address] Printing Agent Endocrinology 04/22/20 Team Status: Active Member Role Status Dates Dr. William Steinberg MD Family Provider Active Dr. William Steinberg MD Primary Care Provider Active Team Status: Inactive Member Role Status Dates Dr. William Steinberg MD Primary Care Provider, Referring Provider Active Dr. Cristobal Engel MD Attending Provider Active Team Status: Inactive Member Role Status Dates Dr. William Steinberg MD Primary Care Provider, Referring Provider Active Dr. Whitney Barrientos MD Attending Provider Active Team Status: Inactive Member Role Status Dates Dr. William Steinberg MD Primary Care Provider Active Dr. Cristobal Engel MD Attending Provider, Referring Provi nato Active Team Status: Active Member Role Status Dates Dr. William Steinberg MD Primary Care Provider, Referring Provider Active Dr. Whitney Barrientos MD Attending Provider, Other Pro vider Active Tower Technician Relationship Specialty Start Date End Date William Steinberg MD [address] [facility] [place] [address] PCP - General Family Medicine 05/19/16 Raphael Chi [address] [facility] [address] [place] [address] Printing Agent Endocrinology 04/22/20 Tower Technician Relationship Specialty Start Date End Date William Steinberg MD [address] [facility] [place] [address] PCP - General Family Medicine 05/19/16 Raphael Chi [address] [facility] [address] [place] [address] Printing Agent Endocrinology 04/22/20 Team Status: Inactive Member Role Status Dates Dr. William Steinberg MD Primary Care Provider Active Dr. Claire Willis DO Attending Provider Active Team Status: Inactive Member Role Status Dates Dr. Wliliam Steinberg MD Primary Care Provider Active Dr. Cristobal Engel MD Attending Provider Active Tower Technician Relationship Specialty Start Date End Date William Steinberg MD [address] [facility] [place] [address] PCP - General Family Medicine 05/19/16 Raphael Chi [address] [facility] [address] [place] [address] Printing Agent Endocrinology 04/22/20 Tower Technician Relationship Specialty Start Date End Date William Steinberg MD [address] [facility] [place] [address] PCP - General Family Medicine 05/19/16 Raphael Chi [address] [facility] [address] [place] [address] Printing Agent Endocrinology 04/22/20 Tower Technician Relationship Specialty Start Date End Date William Steinberg MD [address] [place], [place] [address] PCP - General Family Medicine 05/19/16 Raphael Chi [address] [facility] [address] [place] [phone] Printing Agent Endocrinology 04/22/20 Tower Technician Relationship Specialty Start Date End Date William Steinberg MD [address] [place], [place] [address] PCP - General Family Medicine 05/19/16 Raphael Chi [address] [facility] [address] [place] [phone] Printing Agent Endocrinology 04/22/20 Tower Technician Relationship Specialty Start Date End Date William Steinberg MD [address] [place], [place] [address] PCP - General Family Medicine 05/19/16 Raphael Chi [address] [facility] [address] [place] [phone] Printing Agent Endocrinology 04/22/20 Tower Technician Relationship Specialty Start Date End Date William Steinberg MD [address] [place], [place] [id number] PCP - General Family Medicine 05/19/16 Raphael Chi [address] [facility] [address] [place] [phone] Printing Agent Endocrinology 04/22/20 Tower Technician Relationship Specialty Start Date End Date William Steinberg MD [address] [place], [place] [address] PCP - General Family Medicine 05/19/16 Raphael Chi [address] [facility] [address] [place] [phone] Printing Agent Endocrinology 04/22/20 Tower Technician Relationship Specialty Start Date End Date William Steinberg MD [address] [place], [place] [address] PCP - General Family Medicine 05/19/16 Raphael Chi [address] [facility] [address] [place] [phone] Printing Agent Endocrinology 04/22/20 Tower Technician Relationship Specialty Start Date End Date William Steinberg MD [address] [place], [place] [address] PCP - General Family Medicine 05/19/16 Raphael Chi [address] [facility] [address] [place] [phone] Printing Agent Endocrinology 04/22/20 Tower Technician Relationship Specialty Start Date End Date William Steinberg MD [address] [place], [place] [address] PCP - General Family Medicine 05/19/16 Raphael Chi [address] [place] [phone] Printing Agent Endocrinology 04/22/20 Tower Technician Relationship Specialty Start Date End Date William Steinberg MD [address] [facility] [place] [address] PCP - General Family Medicine 05/19/16 Raphael Chi [address] [place] [phone] Printing Agent Endocrinology 04/22/20 Tower Technician Relationship Specialty Start Date End Date William Steinberg MD [address] [facility] [id number] PCP - General Family Medicine 05/19/16 Raphael Chi [address] [facility] [address] [place] [phone] Printing Agent Endocrinology 04/22/20 Tower Technician Relationship Specialty Start Date End Date William Steinberg MD [address] [facility], [place] [id number] PCP - General Family Medicine 05/19/16 Raphael Chi [address] [facility] [address] [place] [phone] Printing Agent Endocrinology 04/22/20 Tower Technician Relationship Specialty Start Date End Date William Steinberg MD [address] [facility], [place] [address] PCP - General Family Medicine 05/19/16 Raphael Chi [address] [facility] [address] [place] [phone] Printing Agent Endocrinology 04/22/20 Tower Technician Relationship Specialty Start Date End Date William Steinberg MD [address] [facility] [place] [address] PCP - General Family Medicine 05/19/16 Raphael Chi [address] [facility] [address] [place] [address] Printing Agent Endocrinology 04/22/20 Tower Technician Relationship Specialty Start Date End Date William Steinberg MD [address] [facility] [place] [address] PCP - General Family Medicine 05/19/16 Raphael Chi [address] [facility] [address] [place] [address] Printing Agent Endocrinology 04/22/20 Tower Technician Relationship Specialty Start Date End Date William Steinberg MD [address] [facility] [place] [address] PCP - General Family Medicine 05/19/16 Raphael Chi [address] [facility] [address] [place] [address] Printing Agent Endocrinology 04/22/20 Karmen Tee APRN.POKER MANAGER [address] [facility] [place] [address] [employer] Machine Feeder Family Medicine 06/04/24 Trudi Kim APRN.POKER MANAGER [address] [facility] [place] [address] [employer] Machine Feeder Family Medicine 06/04/24 Tower Technician Relationship Specialty Start Date End Date William Steinberg MD [address] [place] [address] PCP - General Family Medicine 05/19/16 Raphael Chi [address] [facility] [address] [place] [address] Printing Agent Endocrinology 04/22/20 Karmen Tee APRN.POKER MANAGER [address] [place] [address] [employer] Machine Feeder Family Medicine 06/04/24 Trudi Kim APRN.POKER MANAGER [address] [facility] [place] [address] [employer] Blank[employer] Machine Feeder Family Medicine 06/04/24 Tower Technician Relationship Specialty Start Date End Date William Steinberg MD [address] [place] [address] PCP - General Family Medicine 05/19/16 Raphael Chi [address] [facility] [address] [place] [address] Printing Agent Endocrinology 04/22/20 Karmen Tee APRN.POKER MANAGER [address] [facility] [place] [address] [employer] Blank[employer] Machine Feeder Family Medicine 06/04/24 Trudi Kim CELL ROOM SUPERVISOR.POKER MANAGER [address] [facility] [place] [address] [employer] Wool Blank[employer] Machine Feeder Family Medicine 06/04/24 Tower Technician Relationship Specialty Start Date End Date William Steinberg MD [address] [facility] [place] [address] PCP - General Family Medicine 05/19/16 Raphael Chi [address] [facility] [address] [place] [phone] Printing Agent Endocrinology 04/22/20 Karmen Tee APRN.POKER MANAGER [address]40 [place] [address] [employer] Wool Blanket Machine Feeder Family Medicine 06/04/24 Trudi Kim CELL ROOM SUPERVISOR.POKER MANAGER [address] [facility] [place] [address] [employer] [facility] 06/04/24 Tower Technician Relationship Specialty Start Date End Date William Steinberg MD [address] [facility] [place] [address] PCP - General Family Medicine 05/19/16 Raphael Chi [address] [facility] [address] [place] [phone] Printing Agent Endocrinology 04/22/20 Karmen Tee, CELL ROOM SUPERVISOR.POKER MANAGER [address] [place] [address] [employer] Wool Blanket [facility] 06/04/24 Trudi Kim CELL ROOM SUPERVISOR.POKER MANAGER [address] [facility] [place] [address] Formerly [facility] 06/04/24 Tower Technician Relationship Specialty Start Date End Date William Steinberg MD [address] [facility] [place] [address] PCP - General Family Medicine 05/19/16 Raphael Chi [address] [facility] [address] [place] [phone] Printing Agent Endocrinology 04/22/20 Karmen Tee APRN.POKER MANAGER [address] [facility] [place] [address] Glass Wool Blanket Machine Feeder Family [facility] 06/04/24 Trudi Kim APRN.POKER MANAGER [address] [facility] [place] [address] Glass Wool Blanket Machine Feeder [facility] 06/04/24 Tower Technician Relationship Specialty Start Date End Date William Steinberg MD [address] [facility] [place] [address] PCP - General Family Medicine 05/19/16 Raphael Chi [address] [facility] [address] [place] [address] Printing Agent Endocrinology 04/22/20 Karmen Tee APRN.POKER MANAGER 1740 [facility] [place] [address] Glass Wool Blanket Machine Feeder Family Medicine 06/04/24 Trudi Kim APRN.POKER MANAGER [address] [facility] [place] [address] Glass Wool Blanket Machine Feeder [facility] 06/04/24 Tower Technician Relationship Specialty Start Date End Date William Steinberg MD [address] [facility] [place] [address] PCP - General Family Medicine 05/19/16 Raphael Chi [address] [facility] [address] [place] [phone] Printing Agent Endocrinology 04/22/20 Karmen Tee APRN.POKER MANAGER [address] [place] [address] [employer] [facility] [facility] 06/04/24 Trudi Kim APRN.POKER MANAGER [address] [facility] [place] [address] [employer] Wool Blank[employer] [facility] 06/04/24 Tower Technician Relationship Specialty Start Date End Date William Steinberg MD [address] [facility] [place] [address] PCP - General Family Medicine 05/19/16 Raphael Chi [address] [facility] [address] [place] [phone] Printing Agent Endocrinology 04/22/20 Karmen Tee APRN.POKER MANAGER [address] [facility] [place] [address] Formerly [facility] 06/04/24 Trudi Kim APRN.POKER MANAGER [address] [facility] [place] [address] [employer] Wool Blank[employer] [facility] 06/04/24 Tower Technician Relationship Specialty Start Date End Date William Steinberg MD [address] [facility] [address] PCP - General Family Medicine 05/19/16 Raphael Chi [address] [facility] [address] [place] [phone] Printing Agent Endocrinology 04/22/20 Karmen Tee APRN.POKER MANAGER [address] [place] [address] Formerly [facility] 06/04/24 Trudi Kim APRN.POKER MANAGER [address] [facility] [place] [address] Formerly [facility] 06/04/24 Tower Technician Relationship Specialty Start Date End Date William Steinberg MD [address] [facility] [place] [address] PCP - General Family Medicine 05/19/16 Raphael Chi [address] [facility] [address] [place] [phone] Printing Agent Endocrinology 04/22/20 Karmen Tee APRN.POKER MANAGER [address] [place] [address] Formerly [facility] 06/04/24 Trudi Kim APRN.POKER MANAGER [address] [place] [address] Formerly [facility] 06/04/24 Tower Technician Relationship Specialty Start Date End Date William Steinberg MD [address] [facility] [place] [address] PCP - General Family Medicine 05/19/16 Raphael Chi [address] [facility] [address] [place] [phone] Printing Agent Endocrinology 04/22/20 Karmen Tee APRN.POKER MANAGER [address] [facility] [place] [address] [employer] [facility] 06/04/24 Trudi Kim APRN.POKER MANAGER [address] [place] [address] [employer] Wool Blank[employer] [facility] 06/04/24 Tower Technician Relationship Specialty Start Date End Date William Steinberg MD [address] [place] [address] PCP - General Family Medicine 05/19/16 Raphael Chi [address] [facility] [address] [place] [phone] Printing Agent Endocrinology 04/22/20 Karmen Tee APRN.POKER MANAGER [address] [place] [address] [employer] Blank[employer] [facility] 06/04/24 Trudi Kim APRN.POKER MANAGER [address] [place] [address] Formerly [facility] 06/04/24 Tower Technician Relationship Specialty Start Date End Date William Steinberg MD [address] [place] [address] PCP - General Family Medicine 05/19/16 Raphael Chi [address] [facility] [address] [place] [phone] Printing Agent Endocrinology 04/22/20 Karmen Tee APRN.POKER MANAGER [address] [facility] [place] [address] Formerly [facility] 06/04/24 Trudi Kim APRN.POKER MANAGER [address] [facility] [place] [address] Formerly [facility] 06/04/24 Tower Technician Relationship Specialty Start Date End Date William Steinberg MD [address] [facility] [place] [address] PCP - General Family Medicine 05/19/16 Raphael Chi [address] [facility] [address] [place] [phone] Printing Agent Endocrinology 04/22/20 Karmen Tee APRN.POKER MANAGER [address] [facility] [place] [address] Formerly [facility] 06/04/24 Trudi Kim APRN.POKER MANAGER [address] [facility] [place] [address] Formerly [facility] 06/04/24 Tower Technician Relationship Specialty Start Date End Date William Steinberg MD [address] [facility] [place] [address] PCP - General [facility] Medicine 05/19/16 Raphael [facility] [address] [facility] [address] [place] [phone] Printing Agent Endocrinology 04/22/20 Karmen Tee APRN.POKER MANAGER [address] [facility] [place] [address] Formerly [facility] 06/04/24 Trudi Kim APRN.POKER MANAGER [address] [facility] [place], [place] [address] Formerly [facility] 06/04/24 Tower Technician Relationship Specialty Start Date End Date William Steinberg MD [address] [facility] [place], [place] [address] PCP - General Family Medicine 05/19/16 Raphael Chi [address] [facility] [address] [place] [phone] Printing Agent Endocrinology 04/22/20 Karmen Tee APRN.POKER MANAGER [address] [facility] [place] [address] Formerly [facility] 06/04/24 Trudi Kim CELL ROOM SUPERVISOR.POKER MANAGER [address] [facility] [place] [address] Formerly [facility] 06/04/24 Team Status: Inactive Member Role Status Dates Dr. William Steinberg MD Primary Care Provider Active Start: December 03, 2024 End: December 03, 2024 Dr. William Steinberg MD Referring Provider Active Start: December 03, 2024 End: December 03, 2024 Dr. Cristobal Engel MD Attending Provider Active Sta rt: December 03, 2024 End: December 03, 2024 Tower Technician Relationship Specialty Start Date End Date William Steinberg MD [address] [facility] [place] [address] PCP - General Family Medicine 05/19/16 Raphael Chi [address] [facility] [address] [place] [phone] Printing Agent Endocrinology 04/22/20 Karmen Tee APRN.POKER MANAGER [address] [place] [address] Formerly [facility] 06/04/24 Trudi Kim APRN.POKER MANAGER [address] [facility] [place] [address] Formerly [facility] 06/04/24 Tower Technician Relationship Specialty Start Date End Date William Steinberg MD [address] [facility] [place] [address] PCP - General Family Medicine 05/19/16 Raphael Chi [address] [facility] [address] [place] [phone] Printing Agent Endocrinology 04/22/20 Karmen Tee APRN.POKER MANAGER [address] [place] [address] Formerly [facility] 06/04/24 Trudi Kim APRN.POKER MANAGER [address] [place] [address] Formerly [facility] 06/04/24 Tower Technician Relationship Specialty Start Date End Date William Steinberg MD [address] [facility] [place] [address] PCP - General Family Medicine 05/19/16 Raphael Chi [address] [facility] [address] [place] [phone] Printing Agent Endocrinology 04/22/20 Karmen Tee APRN.POKER MANAGER [address] [place] [address] Formerly [facility] 06/04/24 Trudi Kim APRN.POKER MANAGER [address] [place], [place] [address] Formerly [facility] 06/04/24 Tower Technician Relationship Specialty Start Date End Date William Steinberg MD [address] [place], [place] [address] PCP - General Family Medicine 05/19/16 Raphael Chi [address] [phone] Printing Agent Endocrinology 04/22/20 Karmen Tee APRN.POKER MANAGER [address] [place] [address] Formerly [facility] 06/04/24 Trudi Kim APRN.POKER MANAGER [address] [place] [address] Formerly [facility] 06/04/24 Goals (unrecognized section and content) Goals may be documented in a n alternate sectionGoals may be documented in an alternate sectionGoals may be documented in an alternate sectionGoals may be documented in an alternate sectionGoals may be documented in an alternate sectionGoals may be documented in an alternate sectionGoals may be documented in an alternate section FOR RECORDS PERTAINING TO PATIENTS WHO ARE OR HAVE BEEN ENROLLED IN A CHEMICAL DEPENDENCY/SUBSTANCEABUSE PROGRAM, SOME INFORMATION MAY BE OMITTED. This clinical summary was aggregated from multiple sources. Caution should be exercised in using it in the provision of clinical care. This summary normalizes information from multiple sources, and as a consequence, information in this document may materially change the coding, format and clinical context of patient data. In addition, data may be omitted in some cases. CLINICAL DECISIONS SHOULD BE BASED ON THE PRIMARY CLINICAL RECORDS. [facility]. provides no warranty or guarantee of the accuracy or completeness of information in this document.
[2025-06-06 09:34] LABS: Creatinine, Urine (random) 98.40 mg/dL (28.00-217.00); Microalbumin,Random Urine < 12.0 mg/L (<20 mg/L)
[2025-06-06 09:47] LABS: AST(SGOT) 15 U/L (<=31); Alanine Aminotransfer ALT/SGPT 12 U/L (<=34); Albumin, Serum 4.2 g/dL (3.4-4.8); Alkaline Phosphatase 77 U/L (35-104); Anion Gap 11 (5-15); BUN 9 mg/dL (4-19); BUN/Creat Ratio 12.1 RATIO (10-20); Calcium,Total 9.8 mg/dL (7.6-11.0); Carbon Dioxide 22.1 mmol/L (21.0-32.0); Chloride 99 mmol/L (98-108); Cholesterol 225 mg/dL (<=200); Globulin 3.0 g/dL (2.2-4.2); Glucose 182 mg/dL (70-99); Low Density Lipoprotein Calc. 146 mg/dL; Potassium 4.2 mmol/L (3.3-5.1); Triglycerides 119 mg/dL; Very Low Density Lipoprotein 24 mg/dL (5-40); Vitamin D,25 Hydroxy 46.2 ng/mL (30-100); cholesterol:hdl ratio screen 3.91
== END | disposition home or self-care (01) ==
PROVIDERS: PCP Family Medicine; Referring Provider Internal Medicine Endocrinology, Diabetes & Metabolism; Visit Provider Internal Medicine Endocrinology, Diabetes & Metabolism
DX: E03.9 Hypothyroidism, unspecified (principal); E10.9 Type 1 diabetes mellitus without complications; Z96.41 Presence of insulin pump (external) (internal); E78.2 Mixed hyperlipidemia; E03.8 Other specified hypothyroidism; I10 Essential (primary) hypertension
CPT/HCPCS: 36415; 80053; 80061; 82043; 82306; 82570; 84439; 84443